=== PATIENT | male | born 1960 | race Caucasian/White ===

== ENCOUNTER 2020-08-31 11:14 | Inpatient (IN) | payer OTHER, SELFPAY ==
[2020-08-31] VITALS (16 sets, daily range): BP systolic 94–241; BP diastolic 60–90; PULSE 54–130; RESP 12–21; TEMP 36–36.7; O2SAT 92–98; BMI 29.6
--- NOTE | 2020-08-31 11:16 | XR_ITS ---
EXAMINATION: XR CHEST CLINICAL INFORMATION: Respiratory failure. Covid infection. COMPARISON: None TECHNIQUE: Frontal view of the chest was obtained. FINDINGS: There is an endotracheal tube with tip 7 cm above the nellie. There is a nasogastric tube that projects over the stomach. The tip is not seen however the sidehole projects over the proximal stomach. The cardiac and mediastinal contours are normal. There is bilateral multilobar airspace disease, greatest in the lateral right midlung and left lung base suggestive of pneumonia. There is no pleural effusion or pneumothorax. There are degenerative changes of the spine. XR/XR chest 1V IMPRESSION: Satisfactory position of support tubes. Bilateral airspace disease suggestive of pneumonia.
--- NOTE | 2020-08-31 11:18 | CT_ITS ---
EXAMINATION: CHEST CT WITHOUT CONTRAST CLINICAL INFORMATION: Covid infection. Hypoxia. COMPARISON: Previous chest x-ray from earlier the same day TECHNIQUE: Axial images through the chest without contrast. Sagittal and coronal reconstructions on the technologist workstation were. Patient dose 4 0 6 mg/cm. This CT examination was performed using dose optimization techniques as appropriate, variously including the following: *Automated exposure control *Adjustment of mA and/or kV according to patient size (this includes techniques or standardized protocols for targeted exams where dose is matched to indication/reason for exam; i.e. extremities or head) *Use of iterative reconstruction technique FINDINGS: There is an endotracheal tube with tip 3 cm above the nellie. There is a nasogastric tube that projects over the proximal stomach. The tip is not seen. The heart does not appear enlarged. There is no pericardial effusion. There are small mediastinal lymph nodes. There is evidence of severe emphysema. There is dense consolidation with air bronchograms in the right upper lobe suggestive of a pneumonia. There are increased surrounding more peripheral interstitial markings. There is a dependent atelectasis or small infiltrate seen in the posterior basal right lower lobe. There are adjacent increased more anterior and superior interstitial markings in the right lower lobe. There is dense atelectasis consolidation of the left lower lobe with air bronchograms. There are increased interstitial markings seen in the inferior left upper lobe. There are small bilateral pleural effusions. No chest wall mass or enlarged axillary lymph nodes are seen. There are degenerative changes of the spine. There are old bilateral rib fractures. CT/CT head/brain wo con IMPRESSION: Severe emphysema. Bilateral pneumonia, greatest in the right upper and left lower lobes. Small bilateral pleural effusions. Spectral position of endotracheal tube. Nasogastric tube projects over proximal stomach, tip not seen. EXAMINATION: Head CT without contrast CLINICAL INFORMATION: Covid infection. Seizure. Rule out stroke or bleed COMPARISON: None. TECHNIQUE: Axial images through the brain without contrast. Sagittal and coronal reconstructions on the technologist workstation were performed. Patient dose 7 7 9 mg/cm. This CT examination was performed using dose optimization techniques as appropriate, variously including the following: *Automated exposure control *Adjustment of mA and/or kV according to patient size (this includes techniques or standardized protocols for targeted exams where dose is matched to indication/reason for exam; i.e. extremities or head) *Use of iterative reconstruction technique FINDINGS: There is no evidence of an extra-axial collection. There is no evidence of intra-axial or extra-axial hemorrhage. The ventricles and extra-axial CSF spaces are prominent suggestive of generalized atrophy. Wilson-white matter differentiation is normal. No mass, mass effect or infarct is seen. No skull fracture is seen. There is bilateral frontal ethmoid and right maxillary sinus disease. IMPRESSION: No acute findings. Mild generalized atrophy and sinus disease.
--- NOTE | 2020-08-31 11:19 | ECG_ITS ---
Test Reason : UNRESPONSIVE Blood Pressure : / mmHG Vent. Rate : 123 BPM Atrial Rate : 123 BPM P-R Int : 180 ms QRS Dur : 080 ms QT Int : 292 ms P-R-T Axes : 074 033 084 degrees QTc Int : 418 ms Sinus tachycardia Nonspecific ST and T wave abnormality No previous ECGs available Referred By: Milo Dela Cruz Electronically Signed By:UMAIR RICHTER MD
--- NOTE | 2020-08-31 11:36 | ED_ITS ---
HPI - General Adult General Chief complaint: Seizure Stated complaint: dif breathing Time Seen by Provider: 08/31/20 11:15 Source: EMS Mode of arrival: EMS Limitations: altered mental status History of Present Illness HPI narrative: 60-year-old male was brought to the emergency department by EMS for altered mental status with possible seizure versus stroke. The patient is apparently COVID-19 positive x6 days, last well-known time was 9:50 a.m.. The patient's roommate believe that the patient may have had a seizure but I have no description of the event. The patient was altered. The patient was given Narcan in the field with no response. The paramedics brought the patient to the emergency department and he was altered, not responding to painful stimuli, diaphoretic, hypoxic with an O2 saturation of 70% on 100% non-rebreather. The patient is a dialysis patient. Given his hypoxia and altered mental status who is intubated on presentation. Related Data Allergies Allergy/AdvReac Type Severity Reaction Status Date / Time No Known Allergies Allergy Verified 08/31/20 11:16 Review of Systems Review of Systems: Yes unobtainable due to endotracheal tube and Unobtainable due to mental status PMFSH [facility] N[facility]: Past medical family history and social history unobtainable from this patient, unable to obtain old records on the patient Social History Social History Alcohol intake: unknown Smoking Status: Unknown if ever smoked Use of substances other than those prescribed or required for medical reasons: Unable to respond Advance Directives: Yes Advance Directives on File: Yes Advance Directives Date on File: 08/31/20 Physical Exam Vital Signs: Vital Signs: Last Vital Signs Pulse 107 H 08/31/20 12:27 Resp 20 08/31/20 12:00 BP 143/64 H 08/31/20 13:02 Const: General: other (Lethargic, diaphoretic, hypoxic, respiratory distress) HENMT: Head: Yes normal to inspection, Yes normocephalic and Yes atraumatic Ears: external ears normal General nose exam: Normal external nose present Face and sinus: Yes normal facial exam Mouth: Normal oral and palatal mucosa present Throat: Yes posterior oropharynx normal Eyes: Periorbital: periorbital findings normal Eyelids: Yes eyelids normal Conjunctivae: conjunctivae normal Sclerae: sclerae normal Corneas: corneas normal Pupils: Equal, round and reactive pupils present Direct Ophthalmoscopy: normal light reflex Neck: Neck: Yes no lymphadenopathy and Yes trachea midline Chest: Chest palpation & inspection: normal inspection of the chest Resp: Effort & Inspection: respiratory distress Auscultation: diminished lung sounds diffuse Cardio: Rate: regular rate Rhythm: regular rhythm Heart sounds: S1 normal heart sound present, S2 normal heart sound present and no murmurs GI: Inspection: Yes normal to inspection Palpation (GI): Soft to palpation and No hepatosplenomegaly present Rectal Exam - Male: Yes other (Dark black stool, Hemoccult negative) Back/Spine/Pelvis: Cervical Spine: normal cervical lordosis Thoracic/Lumbar Spine: thoracic and lumbar spine normal to inspection Skin: Lesions: no lesions Rashes: no rashes Wounds: no wounds Neuro: General: other (Altered mental status, diaphoretic, hypoxic, not responding to painful stim) Cranial nerves: Yes Equal, round and reactive pupils present Extrem: General: Yes normal to inspection Psych: Attitude: cooperative Course Course Course Narrative: 60-year-old male with end-stage renal disease who presents the emergency department for evaluation of altered mental status, possible seizure at home and COVID positive. The patient on presentation was hypoxic and lethargic. He is also severely hypertensive with a systolic blood 250/110. The patient was intubated and placed on a propofol and fentanyl drip. I did do a septic workup on the patient. Given the fact that he has COVID and concerned that he might have a viral pneumonia versus bacterial pneumonia he was treated with ceftriaxone and azithromycin IV. I did order a CT scan of the patient's head, chest, abdomen pelvis. Patient was presented to the wicker worker, Dr. Dela Cruz and the patient will be admitted for further treatment. Procedures Intubation Time out performed: No sedative: Etomidate Mg Given: 26 paralytic: Rocuronium Mg Given: 50 Laryngoscope: fiber optic video scope ET Tube Size: 7.5 ET Tube Uncuffed: Yes Tube Secured Location: lips Tube Placement Confirmation: visualized tube passing through cords Patient Tolerated Procedure: no complications Intubation Complications: none Medical Decision Making Lab Data Result diagrams: 08/31/20 11:48 08/31/20 11:48 Labs: Lab Results 08/31/20 08/31/20 08/31/20 Range/Units 11:36 11:48 11:48 WBC 24.6 H (4.8-10.8) X10*3/uL RBC 2.98 L (4.60-5.80) X10*6/uL Hgb 9.5 L (14.0-18.0) g/dl Hct 29.4 L (42-52) % MCV 98.7 H (80-98) fL MCH 31.9 (27.0-33.0) pg MCHC 32.3 (31.0-36.0) g/dl RDW 13.8 (11.0-16.0) % Plt Count 268 (160-400) X10*3/uL MPV 9.4 (9.4-12.4) fL Immature Gran % (Auto) 2.1 H (0.0-0.4) % Neut % (Auto) 91.4 H (45-73) % Lymph % (Auto) 3.1 L (20-40) % [place] % (Auto) 3.0 (2-11) % Eos % (Auto) 0.1 (0-4) % Baso % (Auto) 0.3 (0-2) % Lymph # (Auto) 0.8 L (1.2-4.9) X10*3/uL [place] # (Auto) 0.7 (0.1-1.2) X10*3/uL Eos # (Auto) 0.0 (0.0-0.4) X10*3/uL Baso # (Auto) 0.1 (0.0-0.2) X10*3/uL Abs Immat Gran (auto) 0.51 H (0.00-0.03) X10*3/uL Absolute Neuts (auto) 22.5 H (2.0-8.3) X10*3/uL Absolute Nucleated RBC 0.000 (0.0-0.012) X10*3/uL Nucleated RBC % (auto) 0.0 (0.0-0.2) /100WBC Smear Tech's Comments VERIFIED PT 12.4 (10.8-13.0) SEC INR 1.0 (0.9-1.1) APTT 31.9 (24.1-38.0) SEC D-Dimer 1345 NG/ML ABG pH (7.35-7.45) ABG pCO2 (32-45) mmhg ABG pO2 (83-108) mmhg ABG HCO3 (22-26) mmol/l ABG O2 Saturation % ABG Base Excess Oxygen Given Sodium (135-145) mmol/L Potassium (3.3-5.1) mmol/l Chloride (96-108) mmol/L Carbon Dioxide (22-29) mmol/L Anion Gap (12-20) BUN (9-16) mg/dL Creatinine (0.5-1.4) mg/dL Estim Creat Clear Calc Estimated GFR POC Glucose 274 H (60-115) mg/dL Random Glucose (60-115) mg/dL Lactic Acid (0.5-2.0) mmol/L Calcium (8.4-10.2) mg/dL Ferritin (20-250) ng/mL Total Bilirubin (0.0-1.0) mg/dL AST (5-37) U/L ALT (0-40) U/L Alkaline Phosphatase (39-117) U/L Troponin I High Sens (<3.5-35.0) ng/L C-Reactive Protein (< or = 0.50) mg/dL B-Natriuretic Peptide (<100) pg/mL Total Protein (6.5-8.0) g/dL Albumin (3.5-5.0) g/dL Procalcitonin ng/mL Urine Color Urine Appearance Urine pH (5.0-8.0) Ur Specific [place] (1.005-1.025) Urine Protein (NEG-TRACE) MG/DL Urine Glucose (UA) (NEG) MG/DL Urine Ketones (NEG) MG/DL Urine Blood (NEG) Urine Nitrite (NEG) Ur Leukocyte Esterase (NEG) Urine RBC (0) /HPF Urine WBC (0-4) /HPF Ur Squamous Epith Cells /LPF Urine Bacteria /LPF 08/31/20 08/31/20 08/31/20 Range/Units 11:48 11:48 11:48 WBC (4.8-10.8) X10*3/uL RBC (4.60-5.80) X10*6/uL Hgb (14.0-18.0) g/dl Hct (42-52) % MCV (80-98) fL MCH (27.0-33.0) pg MCHC (31.0-36.0) g/dl RDW (11.0-16.0) % Plt Count (160-400) X10*3/uL MPV (9.4-12.4) fL Immature Gran % (Auto) (0.0-0.4) % Neut % (Auto) (45-73) % Lymph % (Auto) (20-40) % [place] % (Auto) (2-11) % Eos % (Auto) (0-4) % Baso % (Auto) (0-2) % Lymph # (Auto) (1.2-4.9) X10*3/uL [place] # (Auto) (0.1-1.2) X10*3/uL Eos # (Auto) (0.0-0.4) X10*3/uL Baso # (Auto) (0.0-0.2) X10*3/uL Abs Immat Gran (auto) (0.00-0.03) X10*3/uL Absolute Neuts (auto) (2.0-8.3) X10*3/uL Absolute Nucleated RBC (0.0-0.012) X10*3/uL Nucleated RBC % (auto) (0.0-0.2) /100WBC Smear Tech's Comments PT (10.8-13.0) SEC INR (0.9-1.1) APTT (24.1-38.0) SEC D-Dimer NG/ML ABG pH (7.35-7.45) ABG pCO2 (32-45) mmhg ABG pO2 (83-108) mmhg ABG HCO3 (22-26) mmol/l ABG O2 Saturation % ABG Base Excess Oxygen Given Sodium 127 L (135-145) mmol/L Potassium 5.8 H (3.3-5.1) mmol/l Chloride 88 L (96-108) mmol/L Carbon Dioxide 25 (22-29) mmol/L Anion Gap 20 (12-20) BUN 62 H (9-16) mg/dL Creatinine 8.11 H* (0.5-1.4) mg/dL Estim Creat Clear Calc TNP Estimated GFR 7 POC Glucose (60-115) mg/dL Random Glucose 296 H (60-115) mg/dL Lactic Acid (0.5-2.0) mmol/L Calcium 8.6 (8.4-10.2) mg/dL Ferritin 3217 H (20-250) ng/mL Total Bilirubin 0.4 (0.0-1.0) mg/dL AST 25 (5-37) U/L ALT 20 (0-40) U/L Alkaline Phosphatase 92 (39-117) U/L Troponin I High Sens 50.0 H (<3.5-35.0) ng/L C-Reactive Protein 3.67 H (< or = 0.50) mg/dL B-Natriuretic Peptide 1286 H (<100) pg/mL Total Protein 6.4 L (6.5-8.0) g/dL Albumin 3.7 (3.5-5.0) g/dL Procalcitonin 0.28 ng/mL Urine Color Urine Appearance Urine pH (5.0-8.0) Ur Specific [place] (1.005-1.025) Urine Protein (NEG-TRACE) MG/DL Urine Glucose (UA) (NEG) MG/DL Urine Ketones (NEG) MG/DL Urine Blood (NEG) Urine Nitrite (NEG) Ur Leukocyte Esterase (NEG) Urine RBC (0) /HPF Urine WBC (0-4) /HPF Ur Squamous Epith Cells /LPF Urine Bacteria /LPF 08/31/20 08/31/20 08/31/20 Range/Units 11:49 12:05 13:15 WBC (4.8-10.8) X10*3/uL RBC (4.60-5.80) X10*6/uL Hgb (14.0-18.0) g/dl Hct (42-52) % MCV (80-98) fL MCH (27.0-33.0) pg MCHC (31.0-36.0) g/dl RDW (11.0-16.0) % Plt Count (160-400) X10*3/uL MPV (9.4-12.4) fL Immature Gran % (Auto) (0.0-0.4) % Neut % (Auto) (45-73) % Lymph % (Auto) (20-40) % [place] % (Auto) (2-11) % Eos % (Auto) (0-4) % Baso % (Auto) (0-2) % Lymph # (Auto) (1.2-4.9) X10*3/uL [place] # (Auto) (0.1-1.2) X10*3/uL Eos # (Auto) (0.0-0.4) X10*3/uL Baso # (Auto) (0.0-0.2) X10*3/uL Abs Immat Gran (auto) (0.00-0.03) X10*3/uL Absolute Neuts (auto) (2.0-8.3) X10*3/uL Absolute Nucleated RBC (0.0-0.012) X10*3/uL Nucleated RBC % (auto) (0.0-0.2) /100WBC Smear Tech's Comments PT (10.8-13.0) SEC INR (0.9-1.1) APTT (24.1-38.0) SEC D-Dimer NG/ML ABG pH 7.14 L* (7.35-7.45) ABG pCO2 75 H* (32-45) mmhg ABG pO2 88 (83-108) mmhg ABG HCO3 25 (22-26) mmol/l ABG O2 Saturation 94.4 % ABG Base Excess -4.7 Oxygen Given 100% Sodium (135-145) mmol/L Potassium (3.3-5.1) mmol/l Chloride (96-108) mmol/L Carbon Dioxide (22-29) mmol/L Anion Gap (12-20) BUN (9-16) mg/dL Creatinine (0.5-1.4) mg/dL Estim Creat Clear Calc Estimated GFR POC Glucose (60-115) mg/dL Random Glucose (60-115) mg/dL Lactic Acid 1.2 (0.5-2.0) mmol/L Calcium (8.4-10.2) mg/dL Ferritin (20-250) ng/mL Total Bilirubin (0.0-1.0) mg/dL AST (5-37) U/L ALT (0-40) U/L Alkaline Phosphatase (39-117) U/L Troponin I High Sens (<3.5-35.0) ng/L C-Reactive Protein (< or = 0.50) mg/dL B-Natriuretic Peptide (<100) pg/mL Total Protein (6.5-8.0) g/dL Albumin (3.5-5.0) g/dL Procalcitonin ng/mL Urine Color RED Urine Appearance CLOUDY Urine pH 7.5 (5.0-8.0) Ur Specific [place] 1.015 (1.005-1.025) Urine Protein 2+ H (NEG-TRACE) MG/DL Urine Glucose (UA) 100 H (NEG) MG/DL Urine Ketones NEG (NEG) MG/DL Urine Blood 3+ H (NEG) Urine Nitrite NEG (NEG) Ur Leukocyte Esterase TRACE H (NEG) Urine RBC 76-150 H (0) /HPF Urine WBC 1-4 (0-4) /HPF Ur Squamous Epith Cells TRACE /LPF Urine Bacteria NONE /LPF Critical Care Time Critical Care Time Critical Care Time: Yes Total Critical Care Time: 75 Attestation: Critical Care: The patient was critically ill with a high probability of imminent or life threatening deterioration. I spent greater than 30 minutes of discontinuous time evaluating the patient,delivering critical care at the bedside, discussing and evaluating pertinent data with consultants. Critical care time does not include time spent performing separately billable procedures or teaching. Total time spent performing critical care was 75 minutes. Discharge Plan Discharge Clinical Impression: Hypertensive crisis, COVID-19 Respiratory failure Qualifiers: Chronicity: acute Respiratory failure complication: hypoxia Qualified Code(s): J96.01 - Acute respiratory failure with hypoxia
[2020-08-31] MEDS: cefTRIAXone sodium 1 GM in 0.9 % Sodium Chloride 50 ML IV (11:38)
[2020-08-31] MEDS: Azithromycin 500 MG in 0.9 % Sodium Chloride 250 ML 125 MG IV (11:42)
[2020-08-31 11:57] LABS: Basophils Absolute Auto 0.1 X10*3/uL (0.0-0.2); Basophils Percent Auto 0.3 % (0-2); Eosinophils Percent Auto 0.1 % (0-4); Hematocrit 29.4 % (42-52); Hemoglobin 9.5 g/dl (14.0-18.0); Imm Gran Abs Auto 0.51 X10*3/uL (0.00-0.03); Imm Gran Pct Auto 2.1 % (0.0-0.4); Lymphocytes Absolute Auto 0.8 X10*3/uL (1.2-4.9); Lymphocytes Percent Auto 3.1 % (20-40); MANUAL DIFF FLAG SCAN; Mean Corpuscular HGB Conc 32.3 g/dl (31.0-36.0); Mean Corpuscular Hemoglobin 31.9 pg (27.0-33.0); Mean Corpuscular Volume 98.7 fL (80-98); Mean Platelet Volume 9.4 fL (9.4-12.4); Monocytes Absolute Auto 0.7 X10*3/uL (0.1-1.2); Neutrophils Absolute Auto 22.5 X10*3/uL (2.0-8.3); Neutrophils Percent Auto 91.4 % (45-73); Platelet Count 268 X10*3/uL (160-400); Red Blood Count 2.98 X10*6/uL (4.60-5.80); Red Cell Distribution Width 13.8 % (11.0-16.0); SCAN SMEAR FLAG 1; White Blood Count 24.6 X10*3/uL (4.8-10.8)
[2020-08-31 12:09] LABS: Prothrombin Time 12.4 SEC (10.8-13.0)
[2020-08-31] MEDS: fentaNYL citrate/PF 100 MCG/2 ML VIAL IVPUSH (12:09)
[2020-08-31] MEDS: fentaNYL citrate/NS 1,000 MCG/100 ML PLAST..BAG 2 MCG IVCONT (12:10)
--- NOTE | 2020-08-31 12:10 | CT_ITS ---
EXAMINATION: CT ABDOMEN AND PELVIS WITHOUT CONTRAST CLINICAL INFORMATION: Altered mental status. Elevated white blood cell count. Evaluate for infection. COMPARISON: Previous chest CT scans most recent March 2020 TECHNIQUE: Multidetector volumetric imaging was performed from the superior aspect of the liver through the pubic symphysis. Sagittal and coronal reformatted images were obtained on the technologist's workstation. This CT examination was performed using dose optimization techniques as appropriate, variously including the following: *Automated exposure control *Adjustment of mA and/or kV according to patient size (this includes techniques or standardized protocols for targeted exams where dose is matched to indication/reason for exam; i.e. extremities or head) *Use of iterative reconstruction technique DLP: 924 mGy-cm FINDINGS: LUNG BASES: Bilateral lower lobe atelectasis/consolidation and pleural effusions, left greater than right LIVER, GALLBLADDER, AND BILIARY TREE: The liver is unremarkable. There are gallstones in the gallbladder. The gallbladder does not appear distended. There is trace ascites adjacent to the liver and small amount of pericholecystic fluid. SPLEEN: Unremarkable. ADRENAL GLANDS: There is a 1 cm low-attenuation right adrenal nodule. This is similar to previous chest CT scans. Hounsfield units measure 3 without contrast probably represents a benign adenoma. KIDNEYS AND URETERS: There are innumerable bilateral renal cysts. Largest measures 2 cm in the upper pole of the right kidney. There are 2 small 2 mm left renal cortical calcifications. No hydronephrosis, ureteral dilatation or ureteral stone. BLADDER: There is a Canas catheter in the bladder. The bladder is empty. The bladder wall may be thickened. GASTROINTESTINAL TRACT: There is evidence of severe diverticulosis of the colon. There is wall thickening of the sigmoid colon and minimal stranding of the surrounding fat. Is difficult to exclude mild sigmoid diverticulitis. No evidence of obstruction, perforation or abscess is seen. The small and large bowel is otherwise unremarkable. The appendix is is not identified. There is a nasogastric tube in the stomach. ABDOMINAL WALL: There is a large umbilical hernia containing fat. LYMPH NODES: Normal. VASCULAR: There is evidence of atherosclerotic disease. There is no aneurysm. PELVIC VISCERA: Unremarkable. OSSEOUS STRUCTURES: There are degenerative changes of the spine. There is an intramedullary britton/lag screw seen in the right proximal femur. CT/CT abdomen pelvis wo con IMPRESSION: Gallstones. Small amount of ascites around the liver and pericholecystic fluid. There is clinical concern of cholecystitis, ultrasound or HIDA scan be recommended. Severe diverticular disease of the distal colon. It is difficult to exclude mild sigmoid diverticulitis. Innumerable bilateral renal cysts. Stable low-attenuation right adrenal lesion probably representing a benign adenoma. Large umbilical hernia containing fat.
[2020-08-31 12:12] LABS: Partial Thromboplastin Time 31.9 SEC (24.1-38.0)
[2020-08-31 12:15] LABS: Glucose, Whole Blood 274 mg/dL (60-115)
[2020-08-31 12:24] LABS: Lactic Acid 1.2 mmol/L (0.5-2.0)
--- NOTE | 2020-08-31 12:27 | P.PNCC_ITS ---
Critical Care Event Note Summary Code activated: No (Called about Mr. Lara who was intubated in the ED bec of hypoxemia and AM) Narrative: Called about Mr. Lara who was intubated in the ED bec of hypoxemia and AMS. The patient is a 60-year-old male with ESRF, on HD via fistula. Reportedly tested positive for COVID-19 six days ago. Last well-known time was 9:50 a.m. this morning. By report, the patient's roommate found the patient with AMS and thought he might have had a sz. EMS was called. The patient was given Narcan in the field with no response. The patient was BIBA to the ED. On arrival to the ED the patient's mental status was altered and he was not responding to painful stimuli. He was diaphoretic. Sat was 70% on non- rebreather face mask. Initial heart rate was 124, blood pressure was 241/90. The patient was intubated in short order. White count is 24. Other labs are pending. Chest x-ray (my reading) is most suggestive of acute pulmonary edema, but could easily be bilateral COVID pneumonia. IMPRESSION: Hypertensive crisis with acute pulmonary edema in an end-stage renal failure patient, versus bilateral COVID pneumonia. Await further labs. We?ll add COVID biomarkers. NTP or NTG drip and/or labetolol for his BP. We'll send him for head chest and abdomen CT. Following that, admit to ICU for further mx. Critical care time (including mult d/w Dr. De Guzman): 30+ min. Critical Care Time (minutes): 30
[2020-08-31 12:31] LABS: D Dimer 1345 NG/ML
[2020-08-31 12:36] LABS: Alanine Aminotransferase 20 U/L (0-40); Albumin Level 3.7 g/dL (3.5-5.0); Alkaline Phosphatase 92 U/L (39-117); Anion Gap 20 (12-20); Aspartate Amino Transferase 25 U/L (5-37); Bilirubin Total 0.4 mg/dL (0.0-1.0); Blood Urea Nitrogen 62 mg/dL (9-16); C Reactive Protein 3.67 mg/dL (< or = 0.50); Calcium 8.6 mg/dL (8.4-10.2); Carbon Dioxide 25 mmol/L (22-29); Chloride 88 mmol/L (96-108); Estimated Glomerular Filt Rate 7; Glucose Random 296 mg/dL (60-115); Potassium 5.8 mmol/l (3.3-5.1); SLIDE REVIEW VERIFIED; Sodium 127 mmol/L (135-145); Total Protein 6.4 g/dL (6.5-8.0)
[2020-08-31 12:39] LABS: Glucose Urine UA 100 MG/DL (NEG); Leukocyte Esterase Urine TRACE (NEG); Nitrite Urine NEG (NEG); PH 7.5 (5.0-8.0); Specific Gravity - Urine 1.015 (1.005-1.025); Urine Blood 3+ (NEG); Urine Ketones NEG (NEG); Urine Protein 2+ MG/DL (NEG-TRACE)
[2020-08-31 12:42] LABS: Color Urine RED
[2020-08-31 12:43] LABS: Appearance Urine CLOUDY
[2020-08-31] MEDS: Midazolam HCl/PF 2 MG/2 ML VIAL IVPUSH (12:43)
[2020-08-31 12:50] LABS: B Type Natriuretic Peptide 1286 pg/mL (<100)
[2020-08-31] MEDS: levETIRAcetam 250 MG in 0.9 % Sodium Chloride 100 ML 400 MG IV (12:50)
[2020-08-31 12:55] LABS: Procalcitonin 0.28 ng/mL
[2020-08-31 13:21] LABS: Squamous Epithelial Cell Urine TRACE /LPF
[2020-08-31 13:25] LABS: Pt Ventilation O2% 100%
[2020-08-31 13:26] LABS: Base Excess ABG -4.7; HCO3 ABG 25 mmol/l (22-26); Oxygen Saturation ABG 94.4 %; PO2 ABG 88 mmhg (83-108)
[2020-08-31 13:29] LABS: ABG PCO2 75 mmhg (32-45); pH ABG 7.14 (7.35-7.45)
[2020-08-31 13:31] LABS: Ferritin 3217 ng/mL (20-250)
--- NOTE | 2020-08-31 13:32 | PC.NURSE ---
Addendum entered by Michelle Garza RN 08/31/20 13:42: He is compliant with the vent at this time. ABG obtained and MD aware of critical results. Vent adjustments to be made by RT. Plan to transfer to CT. Original Note: Pt difficult to sedate. He is now on max dose of propofol and titrating Fentanyl as indicated. He is compliant
[2020-08-31 13:54] LABS: OBS Int Ctl Valid YES; OBS1 NEG (NEG)
[2020-08-31 15:42] LABS: Influenza A PCR NEGATIVE (Negative); Influenza B PCR NEGATIVE (Negative); Resp Syncy Virus RNA Qual PCR NEGATIVE (Negative); SARS COV2 PCR INHOUSE POSITIVE (Negative)
--- NOTE | 2020-08-31 15:47 | PC.NURSE ---
Adm to ICU Pt brought to ICU intubated and sedated with bilat wrist restraints in place. Pt settled and reported given at the bedside with on-coming nurse. Dr. Dela Cruz at bedside and multiple orders given to adjust medications and vent settings.
[2020-08-31 16:04] LABS: SARS COV2 IgG Positive (Negative)
--- NOTE | 2020-08-31 16:30 | PC.NURSE ---
Patient brought to the unit on a propofol and fentanyl drip. Order for fentanyl drip from ER discontinued but the bag is almost full. placed new order for fentanyl drip to be continued. New order is the same concentration. Drip titration documented under discontinued order. Spoke to Samantha in pharmacy agreed to continue to use full bag from ER. When bag is empty will scan new bag for the new order, MD aware patient is on Fentanyl as ordered.
--- NOTE | 2020-08-31 16:47 | PC.NURSE ---
Addendum entered by Radha Lynn RN 08/31/20 18:41: PACs noted on tele follwoing administration of atropine. Notified Dr. Dela Cruz. No new orders. Will continue to monitor. Addendum entered by Radha Lynn RN 08/31/20 18:29: HR trending in the 50s. Propofol and fentanyl titrated down. Notified . Administered ordered 4.mg atropine IVP. HRup to the 80s, SBP up to 130s, MD aware. Norepinephrine titrated off at 18:35. Hematuria noted in charles. Irrigated 60 cc of steril water, 60 cc returned with two large blood clots. 100 cc of bloody urine in charles after irriagation. Repeated irrigation of 60 cc sterile water at 18:30. Unable to get any return of urine. Notified , will report to oncoming RN to monitor urine output. Original Note: SBP trending in the low 90s as low and patient to begin dialysis. Per MD, patient to be started on Norepinephrine drip at 0.05 mcg/kg/min per protocol going through 20G in the left AC per .
[2020-08-31 17:22] LABS: Glucose, Whole Blood 122 mg/dL (60-115)
[2020-08-31] MEDS: Chlorhexidine Gluc Oral Rinse 15 ML MOUTHWASH BUCCAL (17:39)
--- NOTE | 2020-08-31 17:40 | PM.CCHP ---
History of Present Illness Date of Service: 08/31/20 Mr. Lara was admitted to the ICU this afternoon after being intubated in the ED bec of hypoxemia and AMS. The patient is a 60-year-old male with ESRF, on HD via fistula. Dr. Leger reported to me that his ESRF is 2? IgA nephropathy on bx, and that he?s been on HD for about 1 year. He?s on -Sun schedule and was scheduled for HD at 3:30pm today. He also has a history of heavy cigarette abuse, COPD, bronchitis w chronic cough, Crohn?s dz, and schizoaffective disorder. Dr. Leger also reported to me that the patient tested positive for COVID-19 on August 18 (14 days ago). The patient has lived with a roommate named Abdoulaye (telephone numbers [phone], or [phone]) for the last 8 years. Abdoulaye is also the patient?s HCP. I have no information about whether the patient has any next of kin. Abdoulaye tells me that the patient was hospitalized with pneumonia this past October for 3 days; he does not know whether that was COVID or not. The patient wears oxygen 24 hours a day: 2 L at rest, and 4 L with exertion. The patient rarely leaves the house. The patient has a nurse who comes to see him every day to give him his medication. The patient has been in his usual state of health, not requiring more oxygen than usual, not more dyspnea than usual, and if anything, coughing less than he usually does. No recent fever. According to Abdoulaye, the patient has been largely asymptomatic from a COVID standpoint since he tested positive. He never required hospitalization nor even an increase in his usual FiO2. The patient was seen at the house by his usual nurse this morning. Nothing was amiss. Abdoulaye saw the patient this morning and he looked fine. Then at about 10 30, the patient was noted to be sitting and unresponsive to questioning. His breathing did not look right. Abdoulaye called EMS. Accord to EMS records, they arrived to the house at 10:20am. Initial VS at the house HR 58, BP 79/43, Sat 56% (?FiO2), RR10. Unresponsive, opened eyes to painful stim. The patient was given 2mg Narcan. Next BP was 222/99, Sat 98% on NRBFM. EKG at the scene unremarkable except for poss Qw in V1. soldering machine feeder worked on him for about half an hour at the house and then left to go to the hospital, arrived in the ED at 11 00. In ED the patient's mental status was altered, resp agonal, and he was not responding to painful stimuli. He was diaphoretic. Sat was 71% on non-rebreather face mask. Initial heart rate was 124, blood pressure was 241/90. The patient was immediately intubated. Labs in ED notable for white count 24, Sodium 127, BUN/creat 62/8.1, potassium is 5.8, bicarb is 25, glucose 296, normal LFTs, albumin 3.7, high sensitivity troponin 50, BNP 1286, lactic acid 1.2, DDimer 1345, ferritin 3217, CRP 3.6, procalcitonin 0.28 Chest x-ray (my reading) is most suggestive of acute pulmonary edema, but could easily be bilateral COVID pneumonia. Chest CT shows severe bullous emphysema with marked increase in interstitial markings with small bilat pleural eff, bilat lower lung zone interstitial infiltrates, and small areas of consolidation bilat in the posterior lung zones, with small area of air bronchograms in LLL. Read by radiologist as pneumonia, but other than the area of air bronchograms, it looks more like pulmon edema to me. Abd CT showed gallstones w small amount of ascites around the liver and pericholecystic fluid, w severe diverticular disease of the distal colon. Also innumerable bilateral renal cysts. Large umbilical hernia containing fat. The patient was admitted to ICU, where very rapidly he was tapered down to 40%, then 30% FiO2. We turned the propofol off and the patient woke up and sat up. He was appropriately responsive. We reset dated him so that we could complete dialysis. Dialysis was started and the patient is hemodynamically stable. I expect to extubate him quickly after dialysis is completed. COVID swab done after arrival to the ICU was positive. SARS-CoV-2 IgG is also positive. IMPRESSION: 1. AMS of unclear etiology. No evidence of stroke on head CT. A detailed neuro exam will follow later. DDx otherwise includes seizure or toxic/metabolic encephalopathy. Response to narcan as outline in the history above suggests a possible opiate OD. We?ll add tox screen to his u/a from the ED 2. Severe HTN on arrival. No surprise in a HD patient. Hypertensive crisis with acute pulmon edema could be one reason for his pulmon infiltrates. 3. Bilateral pulmonary infiltrates. Given the history above, it is a virtual certainty that the infiltrate seen on his chest x-ray and CT today are not secondary to COVID. If so, then the other dx?s in the differential would be acute pulmonary edema or pneumonia. Again, given the history above, the pulmonary infiltrates are unlikely infectious, given the suddeness of onset. Therefore, if the infiltrates are pneumonia, it would be aspiration pneumonia, which would be c/w the distribution of the lower lobe infiltrates. And the rapid resolution of hypoxemia would be consistent with either pulmonary edema or aspiration pneumonitis. Echo tomorrow AM. 4. Acute respiratory failure. 2 to above. 5. ESRF with acute azotemia and hyperkalemia. Being dialyzed now. 6. COVID. Tested positive 14 days ago. It?s a virtual certainty that he?s no longer infectious. Still should be isolated in the hospital though. Hypertensive crisis with acute pulmonary edema in an end-stage renal failure patient is my leading dx at this point. Given the marked leukocytosis however, I?ll continue the ceftriaxone and Zithromax pending clinical resolution. Additional critical care time (including telephone d/w Abdoulaye and with Dr. Leger and review of EMS records): 60+ min. Review of Systems Neurologic: Reports Abnormal speech present [facility] Social History Social History (System 09/01/20 @ 08:29 by Gali Gonzalez) Smoking Status: Unknown if ever smoked Use of substances other than those prescribed or required for medical reasons: Unable to respond Currently Displaying Signs/Symptoms of Drug Intoxication Withdrawal: No Advance Directives: Yes Advance Directives on File: Yes Do you have thoughts of harming others: None Do you have a plan to hurt others: No Plan service: No Current occupational status: disabled Meds Allergies Allergy/AdvReac Type Severity Reaction Status Date / Time No Known Allergies Allergy Verified 08/31/20 11:16 Home Medications Medication Instructions Recorded Confirmed Type B complex with C 20-folic acid 1 cap PO DAILY 08/31/20 08/31/20 History [[place] Caps] albuterol sulfate [ProAir HFA] 2 puff INHALATION Q4-6H PRN 08/31/20 08/31/20 History amlodipine 5 mg PO DAILY 08/31/20 08/31/20 History aspirin 81 mg PO DAILY 08/31/20 08/31/20 History cholecalciferol (vitamin D3) 125 mcg PO DAILY 08/31/20 08/31/20 History [Vitamin D3] famotidine 20 mg PO BEDTIME 08/31/20 08/31/20 History ferric citrate [Auryxia] 210 mg PO TID 08/31/20 08/31/20 History fluticasone propionate [Flovent 1 puff INHALATION BID 08/31/20 08/31/20 History HFA] furosemide 80 mg PO DAILY 08/31/20 08/31/20 History loperamide 2 mg PO TID PRN 08/31/20 08/31/20 History metoprolol tartrate 25 mg PO BID 08/31/20 08/31/20 History nicotine 1 patch TRANSDERMAL Q24H 08/31/20 08/31/20 History omega-3 fatty acids [[place] 3] 1,000 mg PO DAILY 08/31/20 08/31/20 History paliperidone 3 mg PO QAM 08/31/20 08/31/20 History perphenazine 4 mg PO DAILY 08/31/20 08/31/20 History Physical Exam Vital Signs: Vital Signs: Last Vital Signs Temp 96.8 F 08/31/20 16:00 Pulse 54 08/31/20 17:00 Resp 16 08/31/20 17:00 BP 122/69 08/31/20 17:00 Pulse Ox 95 08/31/20 17:00 Body Mass Index 29.6 Neuro: Speech: Abnormal speech present Results Labs CBC and Chem 7: 09/01/20 05:35 09/01/20 05:35 Labs: Laboratory Results - last 24 hr 08/31/20 08/31/20 08/31/20 11:36 11:48 11:48 MCV 98.7 H MCH 31.9 MCHC 32.3 RDW 13.8 Plt Count 268 MPV 9.4 Immature Gran % (Auto) 2.1 H Neut % (Auto) 91.4 H Lymph % (Auto) 3.1 L [place] % (Auto) 3.0 Eos % (Auto) 0.1 Baso % (Auto) 0.3 Lymph # (Auto) 0.8 L [place] # (Auto) 0.7 Eos # (Auto) 0.0 Baso # (Auto) 0.1 Abs Immat Gran (auto) 0.51 H Absolute Neuts (auto) 22.5 H Absolute Nucleated RBC 0.000 Nucleated RBC % (auto) 0.0 Smear Tech's Comments VERIFIED PT 12.4 INR 1.0 APTT 31.9 D-Dimer 1345 ABG pH ABG pCO2 ABG pO2 ABG HCO3 ABG O2 Saturation ABG Base Excess Oxygen Given Anion Gap Estim Creat Clear Calc Estimated GFR POC Glucose 274 H Random Glucose Lactic Acid Calcium Ferritin Total Bilirubin AST ALT Alkaline Phosphatase Troponin I High Sens C-Reactive Protein B-Natriuretic Peptide Total Protein Albumin Procalcitonin Urine Color Urine Appearance Urine pH Ur Specific [place] Urine Protein Urine Glucose (UA) Urine Ketones Urine Blood Urine Nitrite Ur Leukocyte Esterase Urine RBC Urine WBC Ur Squamous Epith Cells Urine Bacteria Stool Occult Blood Coronavirus (PCR) Influenza Type A (PCR) Influenza Type B (PCR) RSV RNA Qual (PCR) SARS-CoV-2 IgG Ab 08/31/20 08/31/20 08/31/20 11:48 11:48 11:48 MCV MCH MCHC RDW Plt Count MPV Immature Gran % (Auto) Neut % (Auto) Lymph % (Auto) [place] % (Auto) Eos % (Auto) Baso % (Auto) Lymph # (Auto) [place] # (Auto) Eos # (Auto) Baso # (Auto) Abs Immat Gran (auto) Absolute Neuts (auto) Absolute Nucleated RBC Nucleated RBC % (auto) Smear Tech's Comments PT INR APTT D-Dimer ABG pH ABG pCO2 ABG pO2 ABG HCO3 ABG O2 Saturation ABG Base Excess Oxygen Given Anion Gap 20 Estim Creat Clear Calc TNP Estimated GFR 7 POC Glucose Random Glucose 296 H Lactic Acid Calcium 8.6 Ferritin 3217 H Total Bilirubin 0.4 AST 25 ALT 20 Alkaline Phosphatase 92 Troponin I High Sens 50.0 H C-Reactive Protein 3.67 H B-Natriuretic Peptide 1286 H Total Protein 6.4 L Albumin 3.7 Procalcitonin 0.28 Urine Color Urine Appearance Urine pH Ur Specific [place] Urine Protein Urine Glucose (UA) Urine Ketones Urine Blood Urine Nitrite Ur Leukocyte Esterase Urine RBC Urine WBC Ur Squamous Epith Cells Urine Bacteria Stool Occult Blood Coronavirus (PCR) Influenza Type A (PCR) Influenza Type B (PCR) RSV RNA Qual (PCR) SARS-CoV-2 IgG Ab 08/31/20 08/31/20 08/31/20 11:48 11:49 12:05 MCV MCH MCHC RDW Plt Count MPV Immature Gran % (Auto) Neut % (Auto) Lymph % (Auto) [place] % (Auto) Eos % (Auto) Baso % (Auto) Lymph # (Auto) [place] # (Auto) Eos # (Auto) Baso # (Auto) Abs Immat Gran (auto) Absolute Neuts (auto) Absolute Nucleated RBC Nucleated RBC % (auto) Smear Tech's Comments PT INR APTT D-Dimer ABG pH ABG pCO2 ABG pO2 ABG HCO3 ABG O2 Saturation ABG Base Excess Oxygen Given Anion Gap Estim Creat Clear Calc Estimated GFR POC Glucose Random Glucose Lactic Acid 1.2 Calcium Ferritin Total Bilirubin AST ALT Alkaline Phosphatase Troponin I High Sens C-Reactive Protein B-Natriuretic Peptide Total Protein Albumin Procalcitonin Urine Color RED Urine Appearance CLOUDY Urine pH 7.5 Ur Specific [place] 1.015 Urine Protein 2+ H Urine Glucose (UA) 100 H Urine Ketones NEG Urine Blood 3+ H Urine Nitrite NEG Ur Leukocyte Esterase TRACE H Urine RBC 76-150 H Urine WBC 1-4 Ur Squamous Epith Cells TRACE Urine Bacteria NONE Stool Occult Blood Coronavirus (PCR) Influenza Type A (PCR) Influenza Type B (PCR) RSV RNA Qual (PCR) SARS-CoV-2 IgG Ab Positive 08/31/20 08/31/20 08/31/20 13:15 13:40 14:45 MCV MCH MCHC RDW Plt Count MPV Immature Gran % (Auto) Neut % (Auto) Lymph % (Auto) [place] % (Auto) Eos % (Auto) Baso % (Auto) Lymph # (Auto) [place] # (Auto) Eos # (Auto) Baso # (Auto) Abs Immat Gran (auto) Absolute Neuts (auto) Absolute Nucleated RBC Nucleated RBC % (auto) Smear Tech's Comments PT INR APTT D-Dimer ABG pH 7.14 L* ABG pCO2 75 H* ABG pO2 88 ABG HCO3 25 ABG O2 Saturation 94.4 ABG Base Excess -4.7 Oxygen Given 100% Anion Gap Estim Creat Clear Calc Estimated GFR POC Glucose Random Glucose Lactic Acid Calcium Ferritin Total Bilirubin AST ALT Alkaline Phosphatase Troponin I High Sens C-Reactive Protein B-Natriuretic Peptide Total Protein Albumin Procalcitonin Urine Color Urine Appearance Urine pH Ur Specific [place] Urine Protein Urine Glucose (UA) Urine Ketones Urine Blood Urine Nitrite Ur Leukocyte Esterase Urine RBC Urine WBC Ur Squamous Epith Cells Urine Bacteria Stool Occult Blood NEG Coronavirus (PCR) POSITIVE A Influenza Type A (PCR) NEGATIVE Influenza Type B (PCR) NEGATIVE RSV RNA Qual (PCR) NEGATIVE SARS-CoV-2 IgG Ab 08/31/20 17:15 MCV MCH MCHC RDW Plt Count MPV Immature Gran % (Auto) Neut % (Auto) Lymph % (Auto) [place] % (Auto) Eos % (Auto) Baso % (Auto) Lymph # (Auto) [place] # (Auto) Eos # (Auto) Baso # (Auto) Abs Immat Gran (auto) Absolute Neuts (auto) Absolute Nucleated RBC Nucleated RBC % (auto) Smear Tech's Comments PT INR APTT D-Dimer ABG pH ABG pCO2 ABG pO2 ABG HCO3 ABG O2 Saturation ABG Base Excess Oxygen Given Anion Gap Estim Creat Clear Calc Estimated GFR POC Glucose 122 H Random Glucose Lactic Acid Calcium Ferritin Total Bilirubin AST ALT Alkaline Phosphatase Troponin I High Sens C-Reactive Protein B-Natriuretic Peptide Total Protein Albumin Procalcitonin Urine Color Urine Appearance Urine pH Ur Specific [place] Urine Protein Urine Glucose (UA) Urine Ketones Urine Blood Urine Nitrite Ur Leukocyte Esterase Urine RBC Urine WBC Ur Squamous Epith Cells Urine Bacteria Stool Occult Blood Coronavirus (PCR) Influenza Type A (PCR) Influenza Type B (PCR) RSV RNA Qual (PCR) SARS-CoV-2 IgG Ab Imaging Radiologist's Impressions: Impressions Chest X-Ray 08/31/20 11:16 IMPRESSION: Satisfactory position of support tubes. Bilateral airspace disease suggestive of pneumonia. Head CT 08/31/20 11:18 IMPRESSION: Severe emphysema. Bilateral pneumonia, greatest in the right upper and left lower lobes. Small bilateral pleural effusions. Spectral position of endotracheal tube. Nasogastric tube projects over proximal stomach, tip not seen. EXAMINATION: Head CT without contrast CLINICAL INFORMATION: Covid infection. Seizure. Rule out stroke or bleed COMPARISON: None. TECHNIQUE: Axial images through the brain without contrast. Sagittal and coronal reconstructions on the technologist workstation were performed. Patient dose 7 7 9 mg/cm. This CT examination was performed using dose optimization techniques as appropriate, variously including the following: *Automated exposure control *Adjustment of mA and/or kV according to patient size (this includes techniques or standardized protocols for targeted exams where dose is matched to indication/reason for exam; i.e. extremities or head) *Use of iterative reconstruction technique FINDINGS: There is no evidence of an extra-axial collection. There is no evidence of intra-axial or extra-axial hemorrhage. The ventricles and extra-axial CSF spaces are prominent suggestive of generalized atrophy. Wilson-white matter differentiation is normal. No mass, mass effect or infarct is seen. No skull fracture is seen. There is bilateral frontal ethmoid and right maxillary sinus disease. IMPRESSION: No acute findings. Mild generalized atrophy and sinus disease. Abdomen/Pelvis CT 08/31/20 12:10 IMPRESSION: Gallstones. Small amount of ascites around the liver and pericholecystic fluid. There is clinical concern of cholecystitis, ultrasound or HIDA scan be recommended. Severe diverticular disease of the distal colon. It is difficult to exclude mild sigmoid diverticulitis. Innumerable bilateral renal cysts. Stable low-attenuation right adrenal lesion probably representing a benign adenoma. Large umbilical hernia containing fat. Chest CT 08/31/20 12:10 IMPRESSION: Severe emphysema. Bilateral pneumonia, greatest in the right upper and left lower lobes. Small bilateral pleural effusions. Spectral position of endotracheal tube. Nasogastric tube projects over proximal stomach, tip not seen. EXAMINATION: Head CT without contrast CLINICAL INFORMATION: Covid infection. Seizure. Rule out stroke or bleed COMPARISON: None. TECHNIQUE: Axial images through the brain without contrast. Sagittal and coronal reconstructions on the technologist workstation were performed. Patient dose 7 7 9 mg/cm. This CT examination was performed using dose optimization techniques as appropriate, variously including the following: *Automated exposure control *Adjustment of mA and/or kV according to patient size (this includes techniques or standardized protocols for targeted exams where dose is matched to indication/reason for exam; i.e. extremities or head) *Use of iterative reconstruction technique FINDINGS: There is no evidence of an extra-axial collection. There is no evidence of intra-axial or extra-axial hemorrhage. The ventricles and extra-axial CSF spaces are prominent suggestive of generalized atrophy. Wilson-white matter differentiation is normal. No mass, mass effect or infarct is seen. No skull fracture is seen. There is bilateral frontal ethmoid and right maxillary sinus disease. IMPRESSION: No acute findings. Mild generalized atrophy and sinus disease. Critical Care Time Critical Care Time (minutes): 60
[2020-08-31] MEDS: Atropine Sulfate 1 MG/ML VIAL 0.4 MG IVPUSH (17:41)
[2020-08-31] MEDS: propofoL 1,000 MG/100 ML VIAL 10.62 MG IVCONT (17:42)
[2020-09-01] VITALS (21 sets, daily range): BP systolic 117–206; BP diastolic 60–105; PULSE 56–100; RESP 12–23; TEMP 36.7–36.8; O2SAT 90–99
[2020-09-01 01:31] LABS: Glucose, Whole Blood 64 mg/dL (60-115)
[2020-09-01 05:57] LABS: MANUAL DIFF FLAG NO
[2020-09-01 06:05] LABS: Basophils Percent Auto 0.4 % (0-2); Eosinophils Percent Auto 0.5 % (0-4); Hematocrit 26.1 % (42-52); Hemoglobin 8.1 g/dl (14.0-18.0); Imm Gran Abs Auto 0.07 X10*3/uL (0.00-0.03); Imm Gran Pct Auto 0.8 % (0.0-0.4); Lymphocytes Absolute Auto 0.8 X10*3/uL (1.2-4.9); Mean Corpuscular Hemoglobin 30.3 pg (27.0-33.0); Mean Corpuscular Volume 97.8 fL (80-98); Mean Platelet Volume 9.9 fL (9.4-12.4); Monocytes Absolute Auto 0.7 X10*3/uL (0.1-1.2); Monocytes Percent Auto 8.6 % (2-11); Neutrophils Absolute Auto 6.8 X10*3/uL (2.0-8.3); Neutrophils Percent Auto 80.7 % (45-73); Platelet Count 224 X10*3/uL (160-400); Red Blood Count 2.67 X10*6/uL (4.60-5.80); White Blood Count 8.4 X10*3/uL (4.8-10.8)
[2020-09-01 06:20] LABS: Base Excess VBG 7.7 mmol/L; HCO3 VBG 32 mmol/L; Oxygen Saturation VBG 86.5 %; PCO2 VBG 44 mmhg; PO2 VBG 50 mmhg; pH VBG 7.48 (7.32-7.43)
[2020-09-01 06:39] LABS: Anion Gap 15 (12-20); Blood Urea Nitrogen 30 mg/dL (9-16); C Reactive Protein 5.53 mg/dL (< or = 0.50); Calcium 8.4 mg/dL (8.4-10.2); Carbon Dioxide 30 mmol/L (22-29); Chloride 95 mmol/L (96-108); Creatinine Clr Calc Pharmacy 16.5; Estimated Glomerular Filt Rate 12; Glucose Random 105 mg/dL (60-115); Potassium 4.9 mmol/l (3.3-5.1); Sodium 135 mmol/L (135-145)
[2020-09-01 06:40] LABS: B Type Natriuretic Peptide 1348 pg/mL (<100); Troponin-I High Sensitivity 299.7 ng/L (<3.5-35.0)
[2020-09-01 06:54] LABS: Glucose, Whole Blood 87 mg/dL (60-115)
[2020-09-01 06:57] LABS: D Dimer 1271 NG/ML
--- NOTE | 2020-09-01 07:03 | XR_ITS ---
EXAMINATION: XR CHEST CLINICAL INFORMATION: Followup CHF. COMPARISON: Chest radiograph and CT chest 08/31/2020 TECHNIQUE: Frontal view of the chest was obtained. FINDINGS: Endotracheal tube and enteric tube have been removed. The cardiomediastinal silhouette is unchanged. The central pulmonary vasculature is not significantly increased. The bilateral multifocal patchy airspace opacities are not substantially changed. The small bilateral pleural effusions noted on CT are not well seen. No evidence of pneumothorax. Redemonstrated background of emphysema with large bullae in the right apex. XR/XR chest 1V IMPRESSION: The patient has been extubated. The bilateral multifocal patchy airspace opacities are not substantially changed. No evidence of new airspace opacification or increasing pleural effusions.
[2020-09-01 07:17] LABS: Procalcitonin 8.61 ng/mL
[2020-09-01 07:22] LABS: Ferritin 2500 ng/mL (20-250)
--- NOTE | 2020-09-01 07:36 | CA_ITS ---
Transthoracic Echocardiogram Amended Patient (Last, First, Middle): Narinder Lara, Gender: Male Date of : 1960 Age: 60 Procedure Date: 09/01/2020 Procedure Type: Transthoracic Echocardiogram Location: ICU Height: 172.72 cm Weight: 88.45 kg BSA: 2.02 m2 Heart Rate: bpm BP: 171 / 77 mmHg Feltmaker And Weigher: CHIQUITA Referring MD: Milo Dela Cruz Sewage Plant Supervisor: Trev Mccoy MD Symptoms: CHF with acute resp failure; r/o CO Study Quality: Fair ECG Rhythm: Sinus Conclusions: - 1. Normal LV systolic function with mild LVH with pseudonormal filling pattern 2. Normal cardiac valvular Doppler 3. Normal RV systolic pressure 4. No gross pericardial effusion Findings Procedure Information Contrast agent, definity, is being given per protocol without apparent complications. Left Ventricle Normal left ventricular size and systolic function. There is mildly increased left ventricular wall thickness. The visually estimated ejection fraction is between 60-65%. Spectral Doppler is indicative of a pseudonormal filling pattern. E/E prime ratio is between 8 and 15 consistent with indeterminate filling pressures. Right Ventricle Normal right ventricular cavity size and systolic function. Atria The left atrium is likely dilated. Interatrial shunt cannot be excluded. The right atrium was not well visualized. Aortic Valve The aortic valve was not well visualized. There is no aortic valve stenosis. There is no aortic valve regurgitation. Mitral Valve Likely normal mitral valve structure and function. There is trace mitral valve regurgitation. There is no mitral valve stenosis. Pulmonic Valve The pulmonic valve was not well visualized. Tricuspid Valve Likely normal tricuspid valve structure and function. There is mild tricuspid valve regurgitation. The right ventricular systolic pressure is normal. The right ventricular systolic pressure is 27 mmHg. There is no evidence of pulmonary hypertension. Great Vessels All visible segments of the aorta are normal in size. Venous The inferior vena cava is normal in size and collapses greater than 50% with inspiration. Pericardium/Pleural There is no evidence of pericardial effusion. Prior Study Comparison No prior study available for comparison. Measurements 2D Linear Measurements IVSd: 1.22 0.6-0.9/0.6-1.0 cm LVIDd: 4.12 3.9-5.3/4.2-5.9 cm LVIDd Index: 2.04 2.4-3.2/2.2-3.1 cm/m2 LVIDs: 2.87 2.0-3.6 cm LVPWd: 1.25 0.7-1.1 cm Ao Root: 3.20 2.1-3.5 cm LA Diam: 3.60 2.7-3.8/3.0-4.0 cm LAIDs Index: 1.78 1.5-2.3 cm/m2 LV Mass: 224.91 67-162/88-224 g LV Mass Index: 111.34 43-95/49-115 g/m2 LVOT Diam: 2.00 3.0+(-)1.3 cm 2D Volumes LA Vol: 36.30 Mitral Valve MV Pk E: 1.14 MV PK A: 0.94 MV Decel Time: 194.00 E/A: 1.20 E'Lateral: 13.70 E'Medial: 10.90 E/E' Med: 10.50 E/E' Lat: 8.30 PHT: 57.00 MVA PHT: 3.86 Decel [place]: 5.86 Aortic Valve AoV Pk Db: 1.63 AoV Mn Db: 1.10 AoV VTI: 0.29 AoV Pk Grad: 11.00 Aov Mn Grad: 6.00 VANESSA Cont.VTI: 2.85 LVOT LVOT Pk Db: 1.10 LVOT Mn Db: 0.67 LVOT VTI: 0.26 LVOT Pk Grad: 5.00 LVOT Mn Grad: 2.00 LVOT Diam: 2.00 LVOT Area: 3.14 Diastolic Function MV Pk E: 1.14 MV Pk A: 0.94 E/A: 1.20 E'Medial: 10.90 E/E' Med: 10.50 E' Laterial: 13.70 E/E' Lat: 8.30 Tricuspid Valve TR Pk Db: 2.47 TR Pk Grad: 24.00 RA Press: 3.00 RVSP: 27.00 Great Vessels Aorta Ao Root-2D: 3.20 2.0-3.7 cm Ao Asc: 3.10 2.1-3.4 cm Pulmonary Valve PV Pk Db: 1.29 Peak PV Grad: 7.00 Updated in Other Vendor System with Status of Final Trev Mccoy MD electronically signed on 09/01/2020 2:28:12 PM with status of Final
--- NOTE | 2020-09-01 07:37 | ECG_ITS ---
Test Reason : r/o IA Blood Pressure : / mmHG Vent. Rate : 083 BPM Atrial Rate : 083 BPM P-R Int : 166 ms QRS Dur : 074 ms QT Int : 386 ms P-R-T Axes : 066 016 065 degrees QTc Int : 453 ms Normal sinus rhythm Normal ECG No previous ECGs available Referred By: Milo Dela Cruz Electronically Signed By:UMAIR RICHTER MD
--- NOTE | 2020-09-01 07:45 | MHC.CDI.CONC ---
CDI Concurrent Query Service Date: 09/01/20 Documentation Clarification: NO SUSPICION OF SEPSIS OF ANY KIND. LEADING DX IS HYPERTENSIVE CRISIS WITH ACUTE PULMONARY EDEMA. Please clarify if you are treating a probable/suspected/likely or confirmed: Viral Sepsis due to Covid-19 Pneumonia w acute on chronic hypoxic respiratory failure POA Covid-19 pneumonia with acute on chronic hypoxic respiratory failure POA Please specify if known or other etiology Provider Response: CKD Stage 5 (HYPERTENSIVE CRISIS WITH ACUTE PULMONARY EDEMA) Other Diagnosis: HYPERTENSIVE CRISIS WITH ACUTE PULMONARY EDEMA PLEASE DO NOT DELETE/MODIFY EXISTING CONTENT Additional information is needed in order to code to the highest accuracy and appropriate Severity of Illness (SOI). Please clarify the information noted below in your progress notes and discharge summary. Risk Factors/Clinical Indicators/Treatments WBC 24.6 RR 21 HR 124 BP 241/90 Covid infection 14 days now. Ceftriaxone, Azithromycin, hypoxic O2 sat 70%, vent 100 oxygen flow rate, placed on 6 liters nc RR 20. CT: 08/31 - bilateral pneumonia greater in right upper and left lower lobe. Ed: Covid-19, acute hypoxic respiratory failure, ICU admit. Patient wears oxygen 24hrs a day 2 L at rest 4L w exertion, heavy smoker. CDS: Amparo Flores CCS, CDIS Contact Number: [phone] Please Review the information above and exercise your independent professional judgment in responding to the query. If you concur, pleas document in the PROGRESS NOTES and DISCHARGE SUMMARY. If you do not agree with the query, please document in the query above. THIS QUERY IS PART OF THE PERMANENT MEDICAL RECORD
--- NOTE | 2020-09-01 07:55 | PC.NURSE ---
Assumed care @ 1900 - Dialysis finished at approx 1930. Plan to extubate after dialysis - wean off propofol, keep fentanyl going at 10mcg/hour. Patient shaking / nodding head, following simple directions. Suctioned patient for moderate amt cream prior to extubation. RT at bedside, extubated @ 2009. Patient tolerated extubation, Lungs clear, no stridor noted post extubation. Fentanyl stopped. Patient extubated to 6 liters nasal cannula, weaned to 4 liters through night. Afebrile. No distress. Passed swallow eval - ewelina PA made aware and ordered Renal diet. POC 64 at midnight, gave patient apple juice, and sandwich. POC in morning >80. Vitals stable. Patient resting, arousable, oriented x 4, flat affect, but very pleasant and cooperative w/ care. After Extubation, Abdoulaye, proxy, updated about patient condition, and reported he had patient's wallet. Patient made aware his wallet is with Abdoulaye.
--- NOTE | 2020-09-01 08:53 | MHC.CM.PN ---
pt lives c his life in [employer]/HCP - shyanne , he also has a second [employer] that comes in to help . pt is HD 3x/wk and gets transportation via [facility] as they follow him in the community. pt also has vna - BID nsg through [employer], nurse ph: [phone]. lastly , pt is on chronic o2 via [employer]. pt's [employer] will provide transportation when dc'd. dc plan is to return home c all of the aforementioned svcs. cm to cont. to follow.
[2020-09-01 09:39] LABS: Amphetamine Screen Urine Not Detected (Not Detect); Barbiturates, Urine Not Detected (Not Detect); Benzodiazepines Screen Urine Not Detected (Not Detect); Cannabinoid Screen Urine Not Detected (Not Detect); Cocaine Screen Urine Not Detected (Not Detect); Opiate Screen Urine Not Detected (Not Detect); Phencyclidine Screen Urine Not Detected (Not Detect)
--- NOTE | 2020-09-01 10:16 | P.CONNP_ITS ---
History of Present Illness Reason for Consult Consult date: 08/31/20 Reason for consult: ESRD Chief Complaint Chief complaint: Acute respiratory failure History of Present Illness Narrative: ESRD mwf from [place] present s with severe resp failure requiring intubation. Now getting emergent HD Review of Systems Review of Systems Yes unobtainable due to endotracheal tube and Unobtainable due to mental status PMFSH Social History Social History (System 09/01/20 @ 08:29 by Gali Gonzalez) Alcohol intake: unknown Smoking Status: Unknown if ever smoked Use of substances other than those prescribed or required for medical reasons: Unable to respond Currently Displaying Signs/Symptoms of Drug Intoxication Withdrawal: No Advance Directives: Yes Advance Directives on File: Yes Advance Directives Date on File: 08/31/20 Do you have thoughts of harming others: None Do you have a plan to hurt others: No Plan service: No Current occupational status: disabled Meds Allergies Allergy/AdvReac Type Severity Reaction Status Date / Time No Known Allergies Allergy Verified 08/31/20 11:16 Home Medications Medication Instructions Recorded Confirmed Type B complex with C 20-folic acid 1 cap PO DAILY 08/31/20 08/31/20 History [Crispin Caps] albuterol sulfate [ProAir HFA] 2 puff INHALATION Q4-6H PRN 08/31/20 08/31/20 History amlodipine 5 mg PO DAILY 08/31/20 08/31/20 History aspirin 81 mg PO DAILY 08/31/20 08/31/20 History cholecalciferol (vitamin D3) 125 mcg PO DAILY 08/31/20 08/31/20 History [Vitamin D3] famotidine 20 mg PO BEDTIME 08/31/20 08/31/20 History ferric citrate [Auryxia] 210 mg PO TID 08/31/20 08/31/20 History fluticasone propionate [Flovent 1 puff INHALATION BID 08/31/20 08/31/20 History HFA] furosemide 80 mg PO DAILY 08/31/20 08/31/20 History loperamide 2 mg PO TID PRN 08/31/20 08/31/20 History metoprolol tartrate 25 mg PO BID 08/31/20 08/31/20 History nicotine 1 patch TRANSDERMAL Q24H 08/31/20 08/31/20 History omega-3 fatty acids [[place] 3] 1,000 mg PO DAILY 08/31/20 08/31/20 History paliperidone 3 mg PO QAM 08/31/20 08/31/20 History perphenazine 4 mg PO DAILY 08/31/20 08/31/20 History Physical Exam Vital Signs: Last Vital Signs Temp 98.1 F 09/01/20 04:00 Pulse 79 09/01/20 09:55 Resp 16 09/01/20 09:55 BP 149/67 H 09/01/20 09:55 Pulse Ox 97 09/01/20 09:55 Body Mass Index 29.6 Const General: other (Lethargic, diaphoretic, hypoxic, respiratory distress) HENMT Head: Yes normal to inspection, Yes normocephalic and Yes atraumatic Ears: external ears normal General nose exam: Normal external nose present Face and sinus: Yes normal facial exam Mouth: Normal oral and palatal mucosa present Throat: Yes posterior oropharynx normal Eyes Periorbital: periorbital findings normal Eyelids: Yes eyelids normal Conjunctivae: conjunctivae normal Sclerae: sclerae normal Corneas: corneas normal Pupils: Equal, round and reactive pupils present Direct Ophthalmoscopy: normal light reflex Neck Neck: Yes no lymphadenopathy and Yes trachea midline Chest Chest palpation & inspection: normal inspection of the chest Resp Effort & Inspection: respiratory distress Auscultation: diminished lung sounds diffuse Cardio Rate: regular rate Rhythm: regular rhythm Heart sounds: S1 normal heart sound present, S2 normal heart sound present and no murmurs GI Inspection: Yes normal to inspection Palpation (GI): Soft to palpation and No hepatosplenomegaly present Rectal Exam - Male: Yes other (Dark black stool, Hemoccult negative) General: Yes no CVA tenderness Back/Spine/Pelvis Back: no CVA tenderness Cervical Spine: normal cervical lordosis Thoracic/Lumbar Spine: thoracic and lumbar spine normal to inspection Skin Lesions: no lesions Rashes: no rashes Wounds: no wounds Neuro General: other (Altered mental status, diaphoretic, hypoxic, not responding to painful stim) Cranial nerves: Yes Equal, round and reactive pupils present Cognition (Neuro): normal cognition Motor exam (neuro): 5/5 motor strength present throughout Extrem General: Yes normal to inspection Psych Appearance: well kempt Mental Status: mental status grossly normal Speech and movement: Normal speech and movement present Affect: normal affect Attitude: cooperative Thought process: Normal thought process present Thought content: Normal thought content present Results Lab Results Result Diagrams: 09/01/20 05:35 09/01/20 05:35 Lab results: Chemistry 08/31/20 09/01/20 11:48 05:35 Sodium 127 L 135 Potassium 5.8 H 4.9 Carbon Dioxide 25 30 H BUN 62 H 30 H D Creatinine 8.11 H* 5.07 H* Calcium 8.6 8.4 Hematology 08/31/20 09/01/20 11:48 05:35 WBC 24.6 H 8.4 Hgb 9.5 L 8.1 L Plt Count 268 224 Urinalysis 08/31/20 12:05 Urine Color RED Urine Appearance CLOUDY Urine pH 7.5 Ur Specific [place] 1.015 Urine Protein 2+ H Urine Glucose (UA) 100 H Urine Ketones NEG Urine Blood 3+ H Urine Nitrite NEG Ur Leukocyte Esterase TRACE H Urine RBC 76-150 H Urine WBC 1-4 Ur Squamous Epith Cells TRACE Assessment and Plan (1) Respiratory failure: Qualifiers: Chronicity: acute Respiratory failure complication: hypoxia Qualified Code(s): J96.01 - Acute respiratory failure with hypoxia Status: Acute (2) Hypertensive crisis: Status: Acute (3) COVID-19: Status: Acute 1. ESRD 2. Resp faiure req inyubation 3. Anemia 4. COPD REC: emergent HD and pull fluid; control BP; protect AVF willfollow with team
--- NOTE | 2020-09-01 10:18 | P.PNNP_ITS ---
Subjective Subjective Date of Service: 09/01/20 Physical Exam Vital Signs: Vital Signs: Last Vital Signs Temp 98.1 F 09/01/20 04:00 Pulse 79 09/01/20 09:55 Resp 16 09/01/20 09:55 BP 149/67 H 09/01/20 09:55 Pulse Ox 97 09/01/20 09:55 Body Mass Index 29.6 Const: General: other (Lethargic, diaphoretic, hypoxic, respiratory distress) HENMT: Head: Yes normal to inspection, Yes normocephalic and Yes atraumatic Ears: external ears normal General nose exam: Normal external nose present Face and sinus: Yes normal facial exam Mouth: Normal oral and palatal mucosa present Throat: Yes posterior oropharynx normal Eyes: Periorbital: periorbital findings normal Eyelids: Yes eyelids normal Conjunctivae: conjunctivae normal Sclerae: sclerae normal Corneas: corneas normal Pupils: Equal, round and reactive pupils present Direct Ophthalmoscopy: normal light reflex Neck: Neck: Yes no lymphadenopathy and Yes trachea midline Chest: Chest palpation & inspection: normal inspection of the chest Resp: Effort & Inspection: respiratory distress Auscultation: diminished lung sounds diffuse Cardio: Rate: regular rate Rhythm: regular rhythm Heart sounds: S1 normal heart sound present, S2 normal heart sound present and no murmurs GI: Inspection: Yes normal to inspection Palpation (GI): Soft to palpation and No hepatosplenomegaly present Rectal Exam - Male: Yes other (Dark black stool, Hemoccult negative) : General: Yes no CVA tenderness Back/Spine/Pelvis: Back: no CVA tenderness Cervical Spine: normal cervical lordosis Thoracic/Lumbar Spine: thoracic and lumbar spine normal to inspection Skin: Lesions: no lesions Rashes: no rashes Wounds: no wounds Neuro: General: other (Altered mental status, diaphoretic, hypoxic, not responding to painful stim) Cranial nerves: Yes Equal, round and reactive pupils present Cognition (Neuro): normal cognition Speech: Abnormal speech present Motor exam (neuro): 5/5 motor strength present throughout Extrem: General: Yes normal to inspection Psych: Appearance: well kempt Mental Status: mental status grossly normal Speech and movement: Normal speech and movement present Affect: normal aff ect Attitude: cooperative Thought process: Normal thought process present Thought content: Normal thought content present Objective Data Labs CBC & Chem 7: 09/01/20 05:35 09/01/20 05:35 Labs: Laboratory Results - last 24 hr 08/31/20 08/31/20 08/31/20 11:36 11:48 11:48 WBC 24.6 H RBC 2.98 L Hgb 9.5 L Hct 29.4 L MCV 98.7 H MCH 31.9 MCHC 32.3 RDW 13.8 Plt Count 268 MPV 9.4 Immature Gran % (Auto) 2.1 H Neut % (Auto) 91.4 H Lymph % (Auto) 3.1 L [place] % (Auto) 3.0 Eos % (Auto) 0.1 Baso % (Auto) 0.3 Lymph # (Auto) 0.8 L [place] # (Auto) 0.7 Eos # (Auto) 0.0 Baso # (Auto) 0.1 Abs Immat Gran (auto) 0.51 H Absolute Neuts (auto) 22.5 H Absolute Nucleated RBC 0.000 Nucleated RBC % (auto) 0.0 Smear Tech's Comments VERIFIED PT 12.4 INR 1.0 APTT 31.9 D-Dimer 1345 ABG pH ABG pCO2 ABG pO2 ABG HCO3 ABG O2 Saturation ABG Base Excess VBG pH VBG pCO2 VBG pO2 VBG HCO3 VBG O2 Saturation VBG Base Excess Oxygen Given Sodium Potassium Chloride Carbon Dioxide Anion Gap BUN Creatinine Estim Creat Clear Calc Estimated GFR POC Glucose 274 H Random Glucose Lactic Acid Calcium Ferritin Total Bilirubin AST ALT Alkaline Phosphatase Troponin I High Sens C-Reactive Protein B-Natriuretic Peptide Total Protein Albumin Procalcitonin Urine Color Urine Appearance Urine pH Ur Specific [place] Urine Protein Urine Glucose (UA) Urine Ketones Urine Blood Urine Nitrite Ur Leukocyte Esterase Urine RBC Urine WBC Ur Squamous Epith Cells Urine Bacteria Stool Occult Blood Urine Opiates Screen Ur Barbiturates Screen Ur Phencyclidine Scrn Ur Amphetamines Screen U Benzodiazepines Scrn Urine Cocaine Screen U Marijuana (THC) Screen Coronavirus (PCR) Influenza Type A (PCR) Influenza Type B (PCR) RSV RNA Qual (PCR) SARS-CoV-2 IgG Ab 08/31/20 08/31/20 08/31/20 11:48 11:48 11:48 WBC RBC Hgb Hct MCV MCH MCHC RDW Plt Count MPV Immature Gran % (Auto) Neut % (Auto) Lymph % (Auto) [place] % (Auto) Eos % (Auto) Baso % (Auto) Lymph # (Auto) [place] # (Auto) Eos # (Auto) Baso # (Auto) Abs Immat Gran (auto) Absolute Neuts (auto) Absolute Nucleated RBC Nucleated RBC % (auto) Smear Tech's Comments PT INR APTT D-Dimer ABG pH ABG pCO2 ABG pO2 ABG HCO3 ABG O2 Saturation ABG Base Excess VBG pH VBG pCO2 VBG pO2 VBG HCO3 VBG O2 Saturation VBG Base Excess Oxygen Given Sodium 127 L Potassium 5.8 H Chloride 88 L Carbon Dioxide 25 Anion Gap 20 BUN 62 H Creatinine 8.11 H* Estim Creat Clear Calc TNP Estimated GFR 7 POC Glucose Random Glucose 296 H Lactic Acid Calcium 8.6 Ferritin 3217 H Total Bilirubin 0.4 AST 25 ALT 20 Alkaline Phosphatase 92 Troponin I High Sens 50.0 H C-Reactive Protein 3.67 H B-Natriuretic Peptide 1286 H Total Protein 6.4 L Albumin 3.7 Procalcitonin 0.28 Urine Color Urine Appearance Urine pH Ur Specific [place] Urine Protein Urine Glucose (UA) Urine Ketones Urine Blood Urine Nitrite Ur Leukocyte Esterase Urine RBC Urine WBC Ur Squamous Epith Cells Urine Bacteria Stool Occult Blood Urine Opiates Screen Ur Barbiturates Screen Ur Phencyclidine Scrn Ur Amphetamines Screen U Benzodiazepines Scrn Urine Cocaine Screen U Marijuana (THC) Screen Coronavirus (PCR) Influenza Type A (PCR) Influenza Type B (PCR) RSV RNA Qual (PCR) SARS-CoV-2 IgG Ab 08/31/20 08/31/20 08/31/20 11:48 11:49 12:05 WBC RBC Hgb Hct MCV MCH MCHC RDW Plt Count MPV Immature Gran % (Auto) Neut % (Auto) Lymph % (Auto) [place] % (Auto) Eos % (Auto) Baso % (Auto) Lymph # (Auto) [place] # (Auto) Eos # (Auto) Baso # (Auto) Abs Immat Gran (auto) Absolute Neuts (auto) Absolute Nucleated RBC Nucleated RBC % (auto) Smear Tech's Comments PT INR APTT D-Dimer ABG pH ABG pCO2 ABG pO2 ABG HCO3 ABG O2 Saturation ABG Base Excess VBG pH VBG pCO2 VBG pO2 VBG HCO3 VBG O2 Saturation VBG Base Excess Oxygen Given Sodium Potassium Chloride Carbon Dioxide Anion Gap BUN Creatinine Estim Creat Clear Calc Estimated GFR POC Glucose Random Glucose Lactic Acid 1.2 Calcium Ferritin Total Bilirubin AST ALT Alkaline Phosphatase Troponin I High Sens C-Reactive Protein B-Natriuretic Peptide Total Protein Albumin Procalcitonin Urine Color RED Urine Appearance CLOUDY Urine pH 7.5 Ur Specific [place] 1.015 Urine Protein 2+ H Urine Glucose (UA) 100 H Urine Ketones NEG Urine Blood 3+ H Urine Nitrite NEG Ur Leukocyte Esterase TRACE H Urine RBC 76-150 H Urine WBC 1-4 Ur Squamous Epith Cells TRACE Urine Bacteria NONE Stool Occult Blood Urine Opiates Screen Ur Barbiturates Screen Ur Phencyclidine Scrn Ur Amphetamines Screen U Benzodiazepines Scrn Urine Cocaine Screen U Marijuana (THC) Screen Coronavirus (PCR) Influenza Type A (PCR) Influenza Type B (PCR) RSV RNA Qual (PCR) SARS-CoV-2 IgG Ab Positive 08/31/20 08/31/20 08/31/20 12:05 13:15 13:40 WBC RBC Hgb Hct MCV MCH MCHC RDW Plt Count MPV Immature Gran % (Auto) Neut % (Auto) Lymph % (Auto) [place] % (Auto) Eos % (Auto) Baso % (Auto) Lymph # (Auto) [place] # (Auto) Eos # (Auto) Baso # (Auto) Abs Immat Gran (auto) Absolute Neuts (auto) Absolute Nucleated RBC Nucleated RBC % (auto) Smear Tech's Comments PT INR APTT D-Dimer ABG pH 7.14 L* ABG pCO2 75 H* ABG pO2 88 ABG HCO3 25 ABG O2 Saturation 94.4 ABG Base Excess -4.7 VBG pH VBG pCO2 VBG pO2 VBG HCO3 VBG O2 Saturation VBG Base Excess Oxygen Given 100% Sodium Potassium Chloride Carbon Dioxide Anion Gap BUN Creatinine Estim Creat Clear Calc Estimated GFR POC Glucose Random Glucose Lactic Acid Calcium Ferritin Total Bilirubin AST ALT Alkaline Phosphatase Troponin I High Sens C-Reactive Protein B-Natriuretic Peptide Total Protein Albumin Procalcitonin Urine Color Urine Appearance Urine pH Ur Specific [place] Urine Protein Urine Glucose (UA) Urine Ketones Urine Blood Urine Nitrite Ur Leukocyte Esterase Urine RBC Urine WBC Ur Squamous Epith Cells Urine Bacteria Stool Occult Blood NEG Urine Opiates Screen Not Detected Ur Barbiturates Screen Not Detected Ur Phencyclidine Scrn Not Detected Ur Amphetamines Screen Not Detected U Benzodiazepines Scrn Not Detected Urine Cocaine Screen Not Detected U Marijuana (THC) Screen Not Detected Coronavirus (PCR) Influenza Type A (PCR) Influenza Type B (PCR) RSV RNA Qual (PCR) SARS-CoV-2 IgG Ab 08/31/20 08/31/20 09/01/20 14:45 17:15 01:08 WBC RBC Hgb Hct MCV MCH MCHC RDW Plt Count MPV Immature Gran % (Auto) Neut % (Auto) Lymph % (Auto) [place] % (Auto) Eos % (Auto) Baso % (Auto) Lymph # (Auto) [place] # (Auto) Eos # (Auto) Baso # (Auto) Abs Immat Gran (auto) Absolute Neuts (auto) Absolute Nucleated RBC Nucleated RBC % (auto) Smear Tech's Comments PT INR APTT D-Dimer ABG pH ABG pCO2 ABG pO2 ABG HCO3 ABG O2 Saturation ABG Base Excess VBG pH VBG pCO2 VBG pO2 VBG HCO3 VBG O2 Saturation VBG Base Excess Oxygen Given Sodium Potassium Chloride Carbon Dioxide Anion Gap BUN Creatinine Estim Creat Clear Calc Estimated GFR POC Glucose 122 H 64 Random Glucose Lactic Acid Calcium Ferritin Total Bilirubin AST ALT Alkaline Phosphatase Troponin I High Sens C-Reactive Protein B-Natriuretic Peptide Total Protein Albumin Procalcitonin Urine Color Urine Appearance Urine pH Ur Specific [place] Urine Protein Urine Glucose (UA) Urine Ketones Urine Blood Urine Nitrite Ur Leukocyte Esterase Urine RBC Urine WBC Ur Squamous Epith Cells Urine Bacteria Stool Occult Blood Urine Opiates Screen Ur Barbiturates Screen Ur Phencyclidine Scrn Ur Amphetamines Screen U Benzodiazepines Scrn Urine Cocaine Screen U Marijuana (THC) Screen Coronavirus (PCR) POSITIVE A Influenza Type A (PCR) NEGATIVE Influenza Type B (PCR) NEGATIVE RSV RNA Qual (PCR) NEGATIVE SARS-CoV-2 IgG Ab 09/01/20 09/01/20 09/01/20 05:35 05:35 05:35 WBC 8.4 RBC 2.67 L Hgb 8.1 L Hct 26.1 L MCV 97.8 MCH 30.3 MCHC 31.0 RDW 14.0 Plt Count 224 MPV 9.9 Immature Gran % (Auto) 0.8 H Neut % (Auto) 80.7 H Lymph % (Auto) 9.0 L [place] % (Auto) 8.6 Eos % (Auto) 0.5 Baso % (Auto) 0.4 Lymph # (Auto) 0.8 L [place] # (Auto) 0.7 Eos # (Auto) 0.0 Baso # (Auto) 0.0 Abs Immat Gran (auto) 0.07 H Absolute Neuts (auto) 6.8 Absolute Nucleated RBC 0.000 Nucleated RBC % (auto) 0.0 Smear Tech's Comments PT INR APTT D-Dimer 1271 ABG pH ABG pCO2 ABG pO2 ABG HCO3 ABG O2 Saturation ABG Base Excess VBG pH VBG pCO2 VBG pO2 VBG HCO3 VBG O2 Saturation VBG Base Excess Oxygen Given Sodium 135 Potassium 4.9 Chloride 95 L Carbon Dioxide 30 H Anion Gap 15 BUN 30 H D Creatinine 5.07 H* Estim Creat Clear Calc 16.5 Estimated GFR 12 POC Glucose Random Glucose 105 D Lactic Acid Calcium 8.4 Ferritin 2500 H Total Bilirubin AST ALT Alkaline Phosphatase Troponin I High Sens C-Reactive Protein 5.53 H B-Natriuretic Peptide Total Protein Albumin Procalcitonin Urine Color Urine Appearance Urine pH Ur Specific [place] Urine Protein Urine Glucose (UA) Urine Ketones Urine Blood Urine Nitrite Ur Leukocyte Esterase Urine RBC Urine WBC Ur Squamous Epith Cells Urine Bacteria Stool Occult Blood Urine Opiates Screen Ur Barbiturates Screen Ur Phencyclidine Scrn Ur Amphetamines Screen U Benzodiazepines Scrn Urine Cocaine Screen U Marijuana (THC) Screen Coronavirus (PCR) Influenza Type A (PCR) Influenza Type B (PCR) RSV RNA Qual (PCR) SARS-CoV-2 IgG Ab 09/01/20 09/01/20 09/01/20 05:35 05:35 05:35 WBC RBC Hgb Hct MCV MCH MCHC RDW Plt Count MPV Immature Gran % (Auto) Neut % (Auto) Lymph % (Auto) [place] % (Auto) Eos % (Auto) Baso % (Auto) Lymph # (Auto) [place] # (Auto) Eos # (Auto) Baso # (Auto) Abs Immat Gran (auto) Absolute Neuts (auto) Absolute Nucleated RBC Nucleated RBC % (auto) Smear Tech's Comments PT INR APTT D-Dimer ABG pH ABG pCO2 ABG pO2 ABG HCO3 ABG O2 Saturation ABG Base Excess VBG pH 7.48 H VBG pCO2 44 VBG pO2 50 VBG HCO3 32 VBG O2 Saturation 86.5 VBG Base Excess 7.7 Oxygen Given Sodium Potassium Chloride Carbon Dioxide Anion Gap BUN Creatinine Estim Creat Clear Calc Estimated GFR POC Glucose Random Glucose Lactic Acid Calcium Ferritin Total Bilirubin AST ALT Alkaline Phosphatase Troponin I High Sens 299.7 H D C-Reactive Protein B-Natriuretic Peptide 1348 H Total Protein Albumin Procalcitonin 8.61 Urine Color Urine Appearance Urine pH Ur Specific [place] Urine Protein Urine Glucose (UA) Urine Ketones Urine Blood Urine Nitrite Ur Leukocyte Esterase Urine RBC Urine WBC Ur Squamous Epith Cells Urine Bacteria Stool Occult Blood Urine Opiates Screen Ur Barbiturates Screen Ur Phencyclidine Scrn Ur Amphetamines Screen U Benzodiazepines Scrn Urine Cocaine Screen U Marijuana (THC) Screen Coronavirus (PCR) Influenza Type A (PCR) Influenza Type B (PCR) RSV RNA Qual (PCR) SARS-CoV-2 IgG Ab 09/01/20 06:35 WBC RBC Hgb Hct MCV MCH MCHC RDW Plt Count MPV Immature Gran % (Auto) Neut % (Auto) Lymph % (Auto) [place] % (Auto) Eos % (Auto) Baso % (Auto) Lymph # (Auto) [place] # (Auto) Eos # (Auto) Baso # (Auto) Abs Immat Gran (auto) Absolute Neuts (auto) Absolute Nucleated RBC Nucleated RBC % (auto) Smear Tech's Comments PT INR APTT D-Dimer ABG pH ABG pCO2 ABG pO2 ABG HCO3 ABG O2 Saturation ABG Base Excess VBG pH VBG pCO2 VBG pO2 VBG HCO3 VBG O2 Saturation VBG Base Excess Oxygen Given Sodium Potassium Chloride Carbon Dioxide Anion Gap BUN Creatinine Estim Creat Clear Calc Estimated GFR POC Glucose 87 Random Glucose Lactic Acid Calcium Ferritin Total Bilirubin AST ALT Alkaline Phosphatase Troponin I High Sens C-Reactive Protein B-Natriuretic Peptide Total Protein Albumin Procalcitonin Urine Color Urine Appearance Urine pH Ur Specific [place] Urine Protein Urine Glucose (UA) Urine Ketones Urine Blood Urine Nitrite Ur Leukocyte Esterase Urine RBC Urine WBC Ur Squamous Epith Cells Urine Bacteria Stool Occult Blood Urine Opiates Screen Ur Barbiturates Screen Ur Phencyclidine Scrn Ur Amphetamines Screen U Benzodiazepines Scrn Urine Cocaine Screen U Marijuana (THC) Screen Coronavirus (PCR) Influenza Type A (PCR) Influenza Type B (PCR) RSV RNA Qual (PCR) SARS-CoV-2 IgG Ab Assessment & Plan Assessment and plan (1) Respiratory failure: Status: Acute Assessment and Plan: ESRD: usu [facility] unit ( [phone]) Resp Failure: COPD/CHF H/O COVID 08/19/21 Anemai HTN REC: next HD then try to get back on mw schedule; procrit as oredered (2) Hypertensive crisis: Status: Acute (3) COVID-19: Status: Acute Assessment and Plan: ESRD: usu [facility] [place] [facility] unit ( [phone]) Resp Failure: COPD/CHF H/O COVID 08/19/21 Anemai HTN REC: next HD th then try to get back on mwf schedule; procrit as oredered Time Spent With Patient Time: Total time spent is greater than 50% in coordination of care (as documented) at patient's floor/unit and/or counseling patient: Time with patient: Greater than 35 minutes
--- NOTE | 2020-09-01 10:56 | P.DS_ITS ---
DS: Providers Provider Date of Service: 09/01/20 Date of admission: 08/31/20 14:20 Primary care physician: Sal Valencia MD Consults: 09/01/20 07:37 Consult to Cardiology Stat Consulting Provider: Trev Mccoy Reason for consultation: Acute resp failure 2? CHF, w elevated troponin 09/01/20 09:13 Consult to Nephrology Stat Consulting Provider: John Leger Reason for consultation: END-STAGE RENAL FAILURE WITH ACUTE PULMONARY EDEMA Has provider been notified: Yes DS: Medications Discharge Medications Home Medications: Home Medications Medication Instructions Recorded Confirmed B complex with C 20-folic acid 1 cap PO DAILY 08/31/20 08/31/20 [[place] Caps] albuterol sulfate [ProAir HFA] 2 puff INHALATION Q4-6H PRN 08/31/20 08/31/20 amlodipine 5 mg PO DAILY 08/31/20 08/31/20 aspirin 81 mg PO DAILY 08/31/20 08/31/20 cholecalciferol (vitamin D3) 125 mcg PO DAILY 08/31/20 08/31/20 [Vitamin D3] famotidine 20 mg PO BEDTIME 08/31/20 08/31/20 ferric citrate [Auryxia] 210 mg PO TID 08/31/20 08/31/20 fluticasone propionate [Flovent 1 puff INHALATION BID 08/31/20 08/31/20 HFA] furosemide 80 mg PO DAILY 08/31/20 08/31/20 loperamide 2 mg PO TID PRN 08/31/20 08/31/20 metoprolol tartrate 25 mg PO BID 08/31/20 08/31/20 nicotine 1 patch TRANSDERMAL Q24H 08/31/20 08/31/20 omega-3 fatty acids [[place] 3] 1,000 mg PO DAILY 08/31/20 08/31/20 paliperidone 3 mg PO QAM 08/31/20 08/31/20 perphenazine 4 mg PO DAILY 08/31/20 08/31/20 DS: Summary Time Spent with Patient Time attestation: Total time spent providing and/or coordinating discharge services: Physical Exam Vital Signs: Vital Signs: Last Vital Signs Temp 98.1 F 09/01/20 04:00 Pulse 79 09/01/20 09:55 Resp 16 09/01/20 09:55 BP 149/67 H 09/01/20 09:55 Pulse Ox 97 09/01/20 09:55 Body Mass Index 29.6 DS: Data Data Completed and Pending Labs on day of discharge: Laboratory Tests 08/31/20 08/31/20 08/31/20 11:36 11:48 11:48 WBC 24.6 H RBC 2.98 L Hgb 9.5 L Hct 29.4 L MCV 98.7 H MCH 31.9 MCHC 32.3 RDW 13.8 Plt Count 268 MPV 9.4 Immature Gran % (Auto) 2.1 H Neut % (Auto) 91.4 H Lymph % (Auto) 3.1 L [place] % (Auto) 3.0 Eos % (Auto) 0.1 Baso % (Auto) 0.3 Lymph # (Auto) 0.8 L [place] # (Auto) 0.7 Eos # (Auto) 0.0 Baso # (Auto) 0.1 Abs Immat Gran (auto) 0.51 H Absolute Neuts (auto) 22.5 H Absolute Nucleated RBC 0.000 Nucleated RBC % (auto) 0.0 Smear Tech's Comments VERIFIED PT 12.4 INR 1.0 APTT 31.9 D-Dimer 1345 ABG pH ABG pCO2 ABG pO2 ABG HCO3 ABG O2 Saturation ABG Base Excess VBG pH VBG pCO2 VBG pO2 VBG HCO3 VBG O2 Saturation VBG Base Excess Oxygen Given Sodium Potassium Chloride Carbon Dioxide Anion Gap BUN Creatinine Estim Creat Clear Calc Estimated GFR POC Glucose 274 H Random Glucose Lactic Acid Calcium Ferritin Total Bilirubin AST ALT Alkaline Phosphatase Troponin I High Sens C-Reactive Protein B-Natriuretic Peptide Total Protein Albumin Procalcitonin Urine Color Urine Appearance Urine pH Ur Specific [place] Urine Protein Urine Glucose (UA) Urine Ketones Urine Blood Urine Nitrite Ur Leukocyte Esterase Urine RBC Urine WBC Ur Squamous Epith Cells Urine Bacteria Stool Occult Blood Urine Opiates Screen Ur Barbiturates Screen Ur Phencyclidine Scrn Ur Amphetamines Screen U Benzodiazepines Scrn Urine Cocaine Screen U Marijuana (THC) Screen Coronavirus (PCR) Influenza Type A (PCR) Influenza Type B (PCR) RSV RNA Qual (PCR) SARS-CoV-2 IgG Ab 08/31/20 08/31/20 08/31/20 11:48 11:48 11:48 WBC RBC Hgb Hct MCV MCH MCHC RDW Plt Count MPV Immature Gran % (Auto) Neut % (Auto) Lymph % (Auto) [place] % (Auto) Eos % (Auto) Baso % (Auto) Lymph # (Auto) [place] # (Auto) Eos # (Auto) Baso # (Auto) Abs Immat Gran (auto) Absolute Neuts (auto) Absolute Nucleated RBC Nucleated RBC % (auto) Smear Tech's Comments PT INR APTT D-Dimer ABG pH ABG pCO2 ABG pO2 ABG HCO3 ABG O2 Saturation ABG Base Excess VBG pH VBG pCO2 VBG pO2 VBG HCO3 VBG O2 Saturation VBG Base Excess Oxygen Given Sodium 127 L Potassium 5.8 H Chloride 88 L Carbon Dioxide 25 Anion Gap 20 BUN 62 H Creatinine 8.11 H* Estim Creat Clear Calc TNP Estimated GFR 7 POC Glucose Random Glucose 296 H Lactic Acid Calcium 8.6 Ferritin 3217 H Total Bilirubin 0.4 AST 25 ALT 20 Alkaline Phosphatase 92 Troponin I High Sens 50.0 H C-Reactive Protein 3.67 H B-Natriuretic Peptide 1286 H Total Protein 6.4 L Albumin 3.7 Procalcitonin 0.28 Urine Color Urine Appearance Urine pH Ur Specific [place] Urine Protein Urine Glucose (UA) Urine Ketones Urine Blood Urine Nitrite Ur Leukocyte Esterase Urine RBC Urine WBC Ur Squamous Epith Cells Urine Bacteria Stool Occult Blood Urine Opiates Screen Ur Barbiturates Screen Ur Phencyclidine Scrn Ur Amphetamines Screen U Benzodiazepines Scrn Urine Cocaine Screen U Marijuana (THC) Screen Coronavirus (PCR) Influenza Type A (PCR) Influenza Type B (PCR) RSV RNA Qual (PCR) SARS-CoV-2 IgG Ab 08/31/20 08/31/20 08/31/20 11:48 11:49 12:05 WBC RBC Hgb Hct MCV MCH MCHC RDW Plt Count MPV Immature Gran % (Auto) Neut % (Auto) Lymph % (Auto) [place] % (Auto) Eos % (Auto) Baso % (Auto) Lymph # (Auto) [place] # (Auto) Eos # (Auto) Baso # (Auto) Abs Immat Gran (auto) Absolute Neuts (auto) Absolute Nucleated RBC Nucleated RBC % (auto) Smear Tech's Comments PT INR APTT D-Dimer ABG pH ABG pCO2 ABG pO2 ABG HCO3 ABG O2 Saturation ABG Base Excess VBG pH VBG pCO2 VBG pO2 VBG HCO3 VBG O2 Saturation VBG Base Excess Oxygen Given Sodium Potassium Chloride Carbon Dioxide Anion Gap BUN Creatinine Estim Creat Clear Calc Estimated GFR POC Glucose Random Glucose Lactic Acid 1.2 Calcium Ferritin Total Bilirubin AST ALT Alkaline Phosphatase Troponin I High Sens C-Reactive Protein B-Natriuretic Peptide Total Protein Albumin Procalcitonin Urine Color RED Urine Appearance CLOUDY Urine pH 7.5 Ur Specific [place] 1.015 Urine Protein 2+ H Urine Glucose (UA) 100 H Urine Ketones NEG Urine Blood 3+ H Urine Nitrite NEG Ur Leukocyte Esterase TRACE H Urine RBC 76-150 H Urine WBC 1-4 Ur Squamous Epith Cells TRACE Urine Bacteria NONE Stool Occult Blood Urine Opiates Screen Ur Barbiturates Screen Ur Phencyclidine Scrn Ur Amphetamines Screen U Benzodiazepines Scrn Urine Cocaine Screen U Marijuana (THC) Screen Coronavirus (PCR) Influenza Type A (PCR) Influenza Type B (PCR) RSV RNA Qual (PCR) SARS-CoV-2 IgG Ab Positive 08/31/20 08/31/20 08/31/20 12:05 13:15 13:40 WBC RBC Hgb Hct MCV MCH MCHC RDW Plt Count MPV Immature Gran % (Auto) Neut % (Auto) Lymph % (Auto) [place] % (Auto) Eos % (Auto) Baso % (Auto) Lymph # (Auto) [place] # (Auto) Eos # (Auto) Baso # (Auto) Abs Immat Gran (auto) Absolute Neuts (auto) Absolute Nucleated RBC Nucleated RBC % (auto) Smear Tech's Comments PT INR APTT D-Dimer ABG pH 7.14 L* ABG pCO2 75 H* ABG pO2 88 ABG HCO3 25 ABG O2 Saturation 94.4 ABG Base Excess -4.7 VBG pH VBG pCO2 VBG pO2 VBG HCO3 VBG O2 Saturation VBG Base Excess Oxygen Given 100% Sodium Potassium Chloride Carbon Dioxide Anion Gap BUN Creatinine Estim Creat Clear Calc Estimated GFR POC Glucose Random Glucose Lactic Acid Calcium Ferritin Total Bilirubin AST ALT Alkaline Phosphatase Troponin I High Sens C-Reactive Protein B-Natriuretic Peptide Total Protein Albumin Procalcitonin Urine Color Urine Appearance Urine pH Ur Specific [place] Urine Protein Urine Glucose (UA) Urine Ketones Urine Blood Urine Nitrite Ur Leukocyte Esterase Urine RBC Urine WBC Ur Squamous Epith Cells Urine Bacteria Stool Occult Blood NEG Urine Opiates Screen Not Detected Ur Barbiturates Screen Not Detected Ur Phencyclidine Scrn Not Detected Ur Amphetamines Screen Not Detected U Benzodiazepines Scrn Not Detected Urine Cocaine Screen Not Detected U Marijuana (THC) Screen Not Detected Coronavirus (PCR) Influenza Type A (PCR) Influenza Type B (PCR) RSV RNA Qual (PCR) SARS-CoV-2 IgG Ab 08/31/20 08/31/20 09/01/20 14:45 17:15 01:08 WBC RBC Hgb Hct MCV MCH MCHC RDW Plt Count MPV Immature Gran % (Auto) Neut % (Auto) Lymph % (Auto) [place] % (Auto) Eos % (Auto) Baso % (Auto) Lymph # (Auto) [place] # (Auto) Eos # (Auto) Baso # (Auto) Abs Immat Gran (auto) Absolute Neuts (auto) Absolute Nucleated RBC Nucleated RBC % (auto) Smear Tech's Comments PT INR APTT D-Dimer ABG pH ABG pCO2 ABG pO2 ABG HCO3 ABG O2 Saturation ABG Base Excess VBG pH VBG pCO2 VBG pO2 VBG HCO3 VBG O2 Saturation VBG Base Excess Oxygen Given Sodium Potassium Chloride Carbon Dioxide Anion Gap BUN Creatinine Estim Creat Clear Calc Estimated GFR POC Glucose 122 H 64 Random Glucose Lactic Acid Calcium Ferritin Total Bilirubin AST ALT Alkaline Phosphatase Troponin I High Sens C-Reactive Protein B-Natriuretic Peptide Total Protein Albumin Procalcitonin Urine Color Urine Appearance Urine pH Ur Specific [place] Urine Protein Urine Glucose (UA) Urine Ketones Urine Blood Urine Nitrite Ur Leukocyte Esterase Urine RBC Urine WBC Ur Squamous Epith Cells Urine Bacteria Stool Occult Blood Urine Opiates Screen Ur Barbiturates Screen Ur Phencyclidine Scrn Ur Amphetamines Screen U Benzodiazepines Scrn Urine Cocaine Screen U Marijuana (THC) Screen Coronavirus (PCR) POSITIVE A Influenza Type A (PCR) NEGATIVE Influenza Type B (PCR) NEGATIVE RSV RNA Qual (PCR) NEGATIVE SARS-CoV-2 IgG Ab 09/01/20 09/01/20 09/01/20 05:35 05:35 05:35 WBC 8.4 RBC 2.67 L Hgb 8.1 L Hct 26.1 L MCV 97.8 MCH 30.3 MCHC 31.0 RDW 14.0 Plt Count 224 MPV 9.9 Immature Gran % (Auto) 0.8 H Neut % (Auto) 80.7 H Lymph % (Auto) 9.0 L [place] % (Auto) 8.6 Eos % (Auto) 0.5 Baso % (Auto) 0.4 Lymph # (Auto) 0.8 L [place] # (Auto) 0.7 Eos # (Auto) 0.0 Baso # (Auto) 0.0 Abs Immat Gran (auto) 0.07 H Absolute Neuts (auto) 6.8 Absolute Nucleated RBC 0.000 Nucleated RBC % (auto) 0.0 Smear Tech's Comments PT INR APTT D-Dimer 1271 ABG pH ABG pCO2 ABG pO2 ABG HCO3 ABG O2 Saturation ABG Base Excess VBG pH VBG pCO2 VBG pO2 VBG HCO3 VBG O2 Saturation VBG Base Excess Oxygen Given Sodium 135 Potassium 4.9 Chloride 95 L Carbon Dioxide 30 H Anion Gap 15 BUN 30 H D Creatinine 5.07 H* Estim Creat Clear Calc 16.5 Estimated GFR 12 POC Glucose Random Glucose 105 D Lactic Acid Calcium 8.4 Ferritin 2500 H Total Bilirubin AST ALT Alkaline Phosphatase Troponin I High Sens C-Reactive Protein 5.53 H B-Natriuretic Peptide Total Protein Albumin Procalcitonin Urine Color Urine Appearance Urine pH Ur Specific [place] Urine Protein Urine Glucose (UA) Urine Ketones Urine Blood Urine Nitrite Ur Leukocyte Esterase Urine RBC Urine WBC Ur Squamous Epith Cells Urine Bacteria Stool Occult Blood Urine Opiates Screen Ur Barbiturates Screen Ur Phencyclidine Scrn Ur Amphetamines Screen U Benzodiazepines Scrn Urine Cocaine Screen U Marijuana (THC) Screen Coronavirus (PCR) Influenza Type A (PCR) Influenza Type B (PCR) RSV RNA Qual (PCR) SARS-CoV-2 IgG Ab 09/01/20 09/01/20 09/01/20 05:35 05:35 05:35 WBC RBC Hgb Hct MCV MCH MCHC RDW Plt Count MPV Immature Gran % (Auto) Neut % (Auto) Lymph % (Auto) [place] % (Auto) Eos % (Auto) Baso % (Auto) Lymph # (Auto) [place] # (Auto) Eos # (Auto) Baso # (Auto) Abs Immat Gran (auto) Absolute Neuts (auto) Absolute Nucleated RBC Nucleated RBC % (auto) Smear Tech's Comments PT INR APTT D-Dimer ABG pH ABG pCO2 ABG pO2 ABG HCO3 ABG O2 Saturation ABG Base Excess VBG pH 7.48 H VBG pCO2 44 VBG pO2 50 VBG HCO3 32 VBG O2 Saturation 86.5 VBG Base Excess 7.7 Oxygen Given Sodium Potassium Chloride Carbon Dioxide Anion Gap BUN Creatinine Estim Creat Clear Calc Estimated GFR POC Glucose Random Glucose Lactic Acid Calcium Ferritin Total Bilirubin AST ALT Alkaline Phosphatase Troponin I High Sens 299.7 H D C-Reactive Protein B-Natriuretic Peptide 1348 H Total Protein Albumin Procalcitonin 8.61 Urine Color Urine Appearance Urine pH Ur Specific [place] Urine Protein Urine Glucose (UA) Urine Ketones Urine Blood Urine Nitrite Ur Leukocyte Esterase Urine RBC Urine WBC Ur Squamous Epith Cells Urine Bacteria Stool Occult Blood Urine Opiates Screen Ur Barbiturates Screen Ur Phencyclidine Scrn Ur Amphetamines Screen U Benzodiazepines Scrn Urine Cocaine Screen U Marijuana (THC) Screen Coronavirus (PCR) Influenza Type A (PCR) Influenza Type B (PCR) RSV RNA Qual (PCR) SARS-CoV-2 IgG Ab 09/01/20 06:35 WBC RBC Hgb Hct MCV MCH MCHC RDW Plt Count MPV Immature Gran % (Auto) Neut % (Auto) Lymph % (Auto) [place] % (Auto) Eos % (Auto) Baso % (Auto) Lymph # (Auto) [place] # (Auto) Eos # (Auto) Baso # (Auto) Abs Immat Gran (auto) Absolute Neuts (auto) Absolute Nucleated RBC Nucleated RBC % (auto) Smear Tech's Comments PT INR APTT D-Dimer ABG pH ABG pCO2 ABG pO2 ABG HCO3 ABG O2 Saturation ABG Base Excess VBG pH VBG pCO2 VBG pO2 VBG HCO3 VBG O2 Saturation VBG Base Excess Oxygen Given Sodium Potassium Chloride Carbon Dioxide Anion Gap BUN Creatinine Estim Creat Clear Calc Estimated GFR POC Glucose 87 Random Glucose Lactic Acid Calcium Ferritin Total Bilirubin AST ALT Alkaline Phosphatase Troponin I High Sens C-Reactive Protein B-Natriuretic Peptide Total Protein Albumin Procalcitonin Urine Color Urine Appearance Urine pH Ur Specific [place] Urine Protein Urine Glucose (UA) Urine Ketones Urine Blood Urine Nitrite Ur Leukocyte Esterase Urine RBC Urine WBC Ur Squamous Epith Cells Urine Bacteria Stool Occult Blood Urine Opiates Screen Ur Barbiturates Screen Ur Phencyclidine Scrn Ur Amphetamines Screen U Benzodiazepines Scrn Urine Cocaine Screen U Marijuana (THC) Screen Coronavirus (PCR) Influenza Type A (PCR) Influenza Type B (PCR) RSV RNA Qual (PCR) SARS-CoV-2 IgG Ab Preliminary micro results at discharge 08/31/20 Unknown Urine Culture - Preliminary Urine Catheterized - Straight Catheter No growth to date. Discharge Plan Discharge Discharge Medications: No Action loperamide 2 mg Capsule 2 mg PO TID PRN (Reason: Diarrhea) RF: 0 nicotine 14 mg/24 hr Patch 24 Hour 1 patch TRANSDERMAL Q24H RF: 0 amlodipine 5 mg Tablet 5 mg PO DAILY RF: 0 aspirin 81 mg Tablet,Delayed Release (Dr/Ec) 81 mg PO DAILY RF: 0 famotidine 20 mg Tablet 20 mg PO BEDTIME RF: 0 furosemide 80 mg Tablet 80 mg PO DAILY RF: 0 perphenazine 4 mg Tablet 4 mg PO DAILY RF: 0 metoprolol tartrate 50 mg Tablet 25 mg PO BID RF: 0 [place] Caps 1 mg Capsule 1 cap PO DAILY RF: 0 albuterol sulfate [ProAir HFA] 90 mcg/actuation Hfa Aerosol Inhaler 2 puff INHALATION Q4-6H PRN (Reason: Shortness Of Breath) RF: 0 Flovent HFA 110 mcg/actuation Hfa Aerosol Inhaler 1 puff INHALATION BID RF: 0 [place] 3 Capsule 1,000 mg PO DAILY RF: 0 paliperidone 3 mg Tablet Extended Release 24hr 3 mg PO QAM RF: 0 cholecalciferol (vitamin D3) [Vitamin D3] 125 mcg (5,000 unit) Tablet 125 mcg PO DAILY RF: 0 Auryxia 210 mg iron Tablet 210 mg PO TID RF: 0
--- NOTE | 2020-09-01 10:56 | MHC.CLN ---
RECOMMEND 2GM NA LOW PHOS, LOW K+ DIET PER RENAL
--- NOTE | 2020-09-01 11:07 | PM.CNCAR ---
History of Present Illness History of Present Illness Date of Service: 09/01/20 Requesting physician: Milo Dela Cruz Consult reason: congestive heart failure Chief complaint: Acute respiratory failure Narrative: Thank you for inviting consult on Narinder for respiratory failure. 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 He also has history of hypertension, scizo affective disorder was not feeling well yesterday. He was getting short of breath in his room made called 911. When he arrived in the emergency room he was in severe respiratory distress and was intubated. He had missed his dialysis yesterday. He also noted to have a hypertensive urgency. He recently has been diagnosed with COVID, however he says he has not missed his dialysis session says. He also says that he has had good compliance with fluid and salt intake as recommended. He does not monitor his blood pressure in between dialysis sessions. He had no chest pain is yesterday. Today says he has cough and is feeling congested but has improved in breathing compared to yesterday. He did get dialysis yesterday. His blood pressure yesterday after intubation and nitroglycerin had dropped. Right now blood pressure is again elevated. He denies any chest pain, palpitations, lightheadedness, syncope. Review of Systems Constitutional: Constitutional: Reports fatigue and Reports weakness Cardiovascular: Cardiovascular: Denies Abdominal Distension, Denies chest pain, Denies palpitations and Reports dyspnea Respiratory: Respiratory: Reports chest congestion, Reports excessive phlegm production and Reports dyspnea Gastrointestinal: Gastrointestinal: Reports no additional gastrointestinal complaints Genitourinary: Genitourinary: Reports no additional male genitourinary complaints Musculoskeletal: Musculoskeletal: Reports no additional musculoskeletal complaints Neurologic: Reports weakness Psychiatric: Psychiatric: Reports no additional psychiatric complaints Endocrine: Endocrine: Reports fatigue and Denies palpitations Hematologic/Lymphatic: Hematologic/Lymphatic: Reports no additional hematologic/lymphatic complaints [facility] Past Medical History Medical History End stage renal disease HTN (hypertension) Social History Social History Alcohol intake: unknown Smoking Status: Unknown if ever smoked Use of substances other than those prescribed or required for medical reasons: Unable to respond Currently Displaying Signs/Symptoms of Drug Intoxication Withdrawal: No Advance Directives: Yes Advance Directives on File: Yes Advance Directives Date on File: 08/31/20 Do you have thoughts of harming others: None Do you have a plan to hurt others: No Plan service: No Current occupational status: disabled Meds Allergies Allergy/AdvReac Type Severity Reaction Status Date / Time No Known Allergies Allergy Verified 08/31/20 11:16 Home Medications Medication Instructions Recorded Confirmed Type B complex with C 20-folic acid 1 cap PO DAILY 08/31/20 08/31/20 History [Crispin Caps] albuterol sulfate [ProAir HFA] 2 puff INHALATION Q4-6H PRN 08/31/20 08/31/20 History amlodipine 5 mg PO DAILY 08/31/20 08/31/20 History aspirin 81 mg PO DAILY 08/31/20 08/31/20 History cholecalciferol (vitamin D3) 125 mcg PO DAILY 08/31/20 08/31/20 History [Vitamin D3] famotidine 20 mg PO BEDTIME 08/31/20 08/31/20 History ferric citrate [Auryxia] 210 mg PO TID 08/31/20 08/31/20 History fluticasone propionate [Flovent 1 puff INHALATION BID 08/31/20 08/31/20 History HFA] furosemide 80 mg PO DAILY 08/31/20 08/31/20 History loperamide 2 mg PO TID PRN 08/31/20 08/31/20 History metoprolol tartrate 25 mg PO BID 08/31/20 08/31/20 History nicotine 1 patch TRANSDERMAL Q24H 08/31/20 08/31/20 History omega-3 fatty acids [Cromwell 3] 1,000 mg PO DAILY 08/31/20 08/31/20 History paliperidone 3 mg PO QAM 08/31/20 08/31/20 History perphenazine 4 mg PO DAILY 08/31/20 08/31/20 History Physical Exam Vital Signs: Vital Signs: Last Vital Signs Temp 98.1 F 09/01/20 04:00 Pulse 76 09/01/20 11:00 Resp 18 09/01/20 11:00 BP 165/71 H 09/01/20 11:00 Pulse Ox 93 09/01/20 11:00 Body Mass Index 29.6 Const: General: cooperative, comfortable, no acute distress, alert and awake Orientation/consciousness: patient oriented x3 HENMT: Head: Yes normocephalic and Yes atraumatic Neck: Neck: Yes trachea midline, Yes supple and Yes no JVD Chest: Chest palpation & inspection: normal inspection of the chest Resp: Effort & Inspection: normal respiratory effort Auscultation: clear to auscultation bilaterally and diminished lung sounds Cardio: Palpation: normal PMI Rate: regular rate Rhythm: regular rhythm Heart sounds: S1 normal heart sound present and Other heart sounds present (S4 present) GI: Auscultation: normal bowel sounds Skin: General skin exam: no rashes or lesions noted Neuro: General: patient oriented x3 Extrem: General: Yes no clubbing, cyanosis or edema Psych: Appearance: grossly normal Results Labs and Meds Result diagrams: 09/01/20 05:35 09/01/20 05:35 Lab results: Laboratory Results - last 24 hr 08/31/20 08/31/20 08/31/20 11:36 11:48 11:48 WBC 24.6 H RBC 2.98 L Hgb 9.5 L Hct 29.4 L MCV 98.7 H MCH 31.9 MCHC 32.3 RDW 13.8 Plt Count 268 MPV 9.4 Immature Gran % (Auto) 2.1 H Neut % (Auto) 91.4 H Lymph % (Auto) 3.1 L Coke % (Auto) 3.0 Eos % (Auto) 0.1 Baso % (Auto) 0.3 Lymph # (Auto) 0.8 L Coke # (Auto) 0.7 Eos # (Auto) 0.0 Baso # (Auto) 0.1 Abs Immat Gran (auto) 0.51 H Absolute Neuts (auto) 22.5 H Absolute Nucleated RBC 0.000 Nucleated RBC % (auto) 0.0 Smear Tech's Comments VERIFIED PT 12.4 INR 1.0 APTT 31.9 D-Dimer 1345 ABG pH ABG pCO2 ABG pO2 ABG HCO3 ABG O2 Saturation ABG Base Excess VBG pH VBG pCO2 VBG pO2 VBG HCO3 VBG O2 Saturation VBG Base Excess Oxygen Given Sodium Potassium Chloride Carbon Dioxide Anion Gap BUN Creatinine Estim Creat Clear Calc Estimated GFR POC Glucose 274 H Random Glucose Lactic Acid Calcium Ferritin Total Bilirubin AST ALT Alkaline Phosphatase Troponin I High Sens C-Reactive Protein B-Natriuretic Peptide Total Protein Albumin Procalcitonin Urine Color Urine Appearance Urine pH Ur Specific [place] Urine Protein Urine Glucose (UA) Urine Ketones Urine Blood Urine Nitrite Ur Leukocyte Esterase Urine RBC Urine WBC Ur Squamous Epith Cells Urine Bacteria Stool Occult Blood Urine Opiates Screen Ur Barbiturates Screen Ur Phencyclidine Scrn Ur Amphetamines Screen U Benzodiazepines Scrn Urine Cocaine Screen U Marijuana (THC) Screen Coronavirus (PCR) Influenza Type A (PCR) Influenza Type B (PCR) RSV RNA Qual (PCR) SARS-CoV-2 IgG Ab 08/31/20 08/31/20 08/31/20 11:48 11:48 11:48 WBC RBC Hgb Hct MCV MCH MCHC RDW Plt Count MPV Immature Gran % (Auto) Neut % (Auto) Lymph % (Auto) Coke % (Auto) Eos % (Auto) Baso % (Auto) Lymph # (Auto) Coke # (Auto) Eos # (Auto) Baso # (Auto) Abs Immat Gran (auto) Absolute Neuts (auto) Absolute Nucleated RBC Nucleated RBC % (auto) Smear Tech's Comments PT INR APTT D-Dimer ABG pH ABG pCO2 ABG pO2 ABG HCO3 ABG O2 Saturation ABG Base Excess VBG pH VBG pCO2 VBG pO2 VBG HCO3 VBG O2 Saturation VBG Base Excess Oxygen Given Sodium 127 L Potassium 5.8 H Chloride 88 L Carbon Dioxide 25 Anion Gap 20 BUN 62 H Creatinine 8.11 H* Estim Creat Clear Calc TNP Estimated GFR 7 POC Glucose Random Glucose 296 H Lactic Acid Calcium 8.6 Ferritin 3217 H Total Bilirubin 0.4 AST 25 ALT 20 Alkaline Phosphatase 92 Troponin I High Sens 50.0 H C-Reactive Protein 3.67 H B-Natriuretic Peptide 1286 H Total Protein 6.4 L Albumin 3.7 Procalcitonin 0.28 Urine Color Urine Appearance Urine pH Ur Specific [place] Urine Protein Urine Glucose (UA) Urine Ketones Urine Blood Urine Nitrite Ur Leukocyte Esterase Urine RBC Urine WBC Ur Squamous Epith Cells Urine Bacteria Stool Occult Blood Urine Opiates Screen Ur Barbiturates Screen Ur Phencyclidine Scrn Ur Amphetamines Screen U Benzodiazepines Scrn Urine Cocaine Screen U Marijuana (THC) Screen Coronavirus (PCR) Influenza Type A (PCR) Influenza Type B (PCR) RSV RNA Qual (PCR) SARS-CoV-2 IgG Ab 08/31/20 08/31/20 08/31/20 11:48 11:49 12:05 WBC RBC Hgb Hct MCV MCH MCHC RDW Plt Count MPV Immature Gran % (Auto) Neut % (Auto) Lymph % (Auto) Coke % (Auto) Eos % (Auto) Baso % (Auto) Lymph # (Auto) Coke # (Auto) Eos # (Auto) Baso # (Auto) Abs Immat Gran (auto) Absolute Neuts (auto) Absolute Nucleated RBC Nucleated RBC % (auto) Smear Tech's Comments PT INR APTT D-Dimer ABG pH ABG pCO2 ABG pO2 ABG HCO3 ABG O2 Saturation ABG Base Excess VBG pH VBG pCO2 VBG pO2 VBG HCO3 VBG O2 Saturation VBG Base Excess Oxygen Given Sodium Potassium Chloride Carbon Dioxide Anion Gap BUN Creatinine Estim Creat Clear Calc Estimated GFR POC Glucose Random Glucose Lactic Acid 1.2 Calcium Ferritin Total Bilirubin AST ALT Alkaline Phosphatase Troponin I High Sens C-Reactive Protein B-Natriuretic Peptide Total Protein Albumin Procalcitonin Urine Color RED Urine Appearance CLOUDY Urine pH 7.5 Ur Specific [place] 1.015 Urine Protein 2+ H Urine Glucose (UA) 100 H Urine Ketones NEG Urine Blood 3+ H Urine Nitrite NEG Ur Leukocyte Esterase TRACE H Urine RBC 76-150 H Urine WBC 1-4 Ur Squamous Epith Cells TRACE Urine Bacteria NONE Stool Occult Blood Urine Opiates Screen Ur Barbiturates Screen Ur Phencyclidine Scrn Ur Amphetamines Screen U Benzodiazepines Scrn Urine Cocaine Screen U Marijuana (THC) Screen Coronavirus (PCR) Influenza Type A (PCR) Influenza Type B (PCR) RSV RNA Qual (PCR) SARS-CoV-2 IgG Ab Positive 08/31/20 08/31/20 08/31/20 12:05 13:15 13:40 WBC RBC Hgb Hct MCV MCH MCHC RDW Plt Count MPV Immature Gran % (Auto) Neut % (Auto) Lymph % (Auto) Coke % (Auto) Eos % (Auto) Baso % (Auto) Lymph # (Auto) [place] # (Auto) Eos # (Auto) Baso # (Auto) Abs Immat Gran (auto) Absolute Neuts (auto) Absolute Nucleated RBC Nucleated RBC % (auto) Smear Tech's Comments PT INR APTT D-Dimer ABG pH 7.14 L* ABG pCO2 75 H* ABG pO2 88 ABG HCO3 25 ABG O2 Saturation 94.4 ABG Base Excess -4.7 VBG pH VBG pCO2 VBG pO2 VBG HCO3 VBG O2 Saturation VBG Base Excess Oxygen Given 100% Sodium Potassium Chloride Carbon Dioxide Anion Gap BUN Creatinine Estim Creat Clear Calc Estimated GFR POC Glucose Random Glucose Lactic Acid Calcium Ferritin Total Bilirubin AST ALT Alkaline Phosphatase Troponin I High Sens C-Reactive Protein B-Natriuretic Peptide Total Protein Albumin Procalcitonin Urine Color Urine Appearance Urine pH Ur Specific [place] Urine Protein Urine Glucose (UA) Urine Ketones Urine Blood Urine Nitrite Ur Leukocyte Esterase Urine RBC Urine WBC Ur Squamous Epith Cells Urine Bacteria Stool Occult Blood NEG Urine Opiates Screen Not Detected Ur Barbiturates Screen Not Detected Ur Phencyclidine Scrn Not Detected Ur Amphetamines Screen Not Detected U Benzodiazepines Scrn Not Detected Urine Cocaine Screen Not Detected U Marijuana (THC) Screen Not Detected Coronavirus (PCR) Influenza Type A (PCR) Influenza Type B (PCR) RSV RNA Qual (PCR) SARS-CoV-2 IgG Ab 08/31/20 08/31/20 09/01/20 14:45 17:15 01:08 WBC RBC Hgb Hct MCV MCH MCHC RDW Plt Count MPV Immature Gran % (Auto) Neut % (Auto) Lymph % (Auto) Coke % (Auto) Eos % (Auto) Baso % (Auto) Lymph # (Auto) [place]ke # (Auto) Eos # (Auto) Baso # (Auto) Abs Immat Gran (auto) Absolute Neuts (auto) Absolute Nucleated RBC Nucleated RBC % (auto) Smear Tech's Comments PT INR APTT D-Dimer ABG pH ABG pCO2 ABG pO2 ABG HCO3 ABG O2 Saturation ABG Base Excess VBG pH VBG pCO2 VBG pO2 VBG HCO3 VBG O2 Saturation VBG Base Excess Oxygen Given Sodium Potassium Chloride Carbon Dioxide Anion Gap BUN Creatinine Estim Creat Clear Calc Estimated GFR POC Glucose 122 H 64 Random Glucose Lactic Acid Calcium Ferritin Total Bilirubin AST ALT Alkaline Phosphatase Troponin I High Sens C-Reactive Protein B-Natriuretic Peptide Total Protein Albumin Procalcitonin Urine Color Urine Appearance Urine pH Ur Specific [place] Urine Protein Urine Glucose (UA) Urine Ketones Urine Blood Urine Nitrite Ur Leukocyte Esterase Urine RBC Urine WBC Ur Squamous Epith Cells Urine Bacteria Stool Occult Blood Urine Opiates Screen Ur Barbiturates Screen Ur Phencyclidine Scrn Ur Amphetamines Screen U Benzodiazepines Scrn Urine Cocaine Screen U Marijuana (THC) Screen Coronavirus (PCR) POSITIVE A Influenza Type A (PCR) NEGATIVE Influenza Type B (PCR) NEGATIVE RSV RNA Qual (PCR) NEGATIVE SARS-CoV-2 IgG Ab 09/01/20 09/01/20 09/01/20 05:35 05:35 05:35 WBC 8.4 RBC 2.67 L Hgb 8.1 L Hct 26.1 L MCV 97.8 MCH 30.3 MCHC 31.0 RDW 14.0 Plt Count 224 MPV 9.9 Immature Gran % (Auto) 0.8 H Neut % (Auto) 80.7 H Lymph % (Auto) 9.0 L Coke % (Auto) 8.6 Eos % (Auto) 0.5 Baso % (Auto) 0.4 Lymph # (Auto) 0.8 L [place]ke # (Auto) 0.7 Eos # (Auto) 0.0 Baso # (Auto) 0.0 Abs Immat Gran (auto) 0.07 H Absolute Neuts (auto) 6.8 Absolute Nucleated RBC 0.000 Nucleated RBC % (auto) 0.0 Smear Tech's Comments PT INR APTT D-Dimer 1271 ABG pH ABG pCO2 ABG pO2 ABG HCO3 ABG O2 Saturation ABG Base Excess VBG pH VBG pCO2 VBG pO2 VBG HCO3 VBG O2 Saturation VBG Base Excess Oxygen Given Sodium 135 Potassium 4.9 Chloride 95 L Carbon Dioxide 30 H Anion Gap 15 BUN 30 H D Creatinine 5.07 H* Estim Creat Clear Calc 16.5 Estimated GFR 12 POC Glucose Random Glucose 105 D Lactic Acid Calcium 8.4 Ferritin 2500 H Total Bilirubin AST ALT Alkaline Phosphatase Troponin I High Sens C-Reactive Protein 5.53 H B-Natriuretic Peptide Total Protein Albumin Procalcitonin Urine Color Urine Appearance Urine pH Ur Specific [place] Urine Protein Urine Glucose (UA) Urine Ketones Urine Blood Urine Nitrite Ur Leukocyte Esterase Urine RBC Urine WBC Ur Squamous Epith Cells Urine Bacteria Stool Occult Blood Urine Opiates Screen Ur Barbiturates Screen Ur Phencyclidine Scrn Ur Amphetamines Screen U Benzodiazepines Scrn Urine Cocaine Screen U Marijuana (THC) Screen Coronavirus (PCR) Influenza Type A (PCR) Influenza Type B (PCR) RSV RNA Qual (PCR) SARS-CoV-2 IgG Ab 09/01/20 09/01/20 09/01/20 05:35 05:35 05:35 WBC RBC Hgb Hct MCV MCH MCHC RDW Plt Count MPV Immature Gran % (Auto) Neut % (Auto) Lymph % (Auto) [place]ke % (Auto) Eos % (Auto) Baso % (Auto) Lymph # (Auto) [place]ke # (Auto) Eos # (Auto) Baso # (Auto) Abs Immat Gran (auto) Absolute Neuts (auto) Absolute Nucleated RBC Nucleated RBC % (auto) Smear Tech's Comments PT INR APTT D-Dimer ABG pH ABG pCO2 ABG pO2 ABG HCO3 ABG O2 Saturation ABG Base Excess VBG pH 7.48 H VBG pCO2 44 VBG pO2 50 VBG HCO3 32 VBG O2 Saturation 86.5 VBG Base Excess 7.7 Oxygen Given Sodium Potassium Chloride Carbon Dioxide Anion Gap BUN Creatinine Estim Creat Clear Calc Estimated GFR POC Glucose Random Glucose Lactic Acid Calcium Ferritin Total Bilirubin AST ALT Alkaline Phosphatase Troponin I High Sens 299.7 H D C-Reactive Protein B-Natriuretic Peptide 1348 H Total Protein Albumin Procalcitonin 8.61 Urine Color Urine Appearance Urine pH Ur Specific [place] Urine Protein Urine Glucose (UA) Urine Ketones Urine Blood Urine Nitrite Ur Leukocyte Esterase Urine RBC Urine WBC Ur Squamous Epith Cells Urine Bacteria Stool Occult Blood Urine Opiates Screen Ur Barbiturates Screen Ur Phencyclidine Scrn Ur Amphetamines Screen U Benzodiazepines Scrn Urine Cocaine Screen U Marijuana (THC) Screen Coronavirus (PCR) Influenza Type A (PCR) Influenza Type B (PCR) RSV RNA Qual (PCR) SARS-CoV-2 IgG Ab 09/01/20 06:35 WBC RBC Hgb Hct MCV MCH MCHC RDW Plt Count MPV Immature Gran % (Auto) Neut % (Auto) Lymph % (Auto) [place]ke % (Auto) Eos % (Auto) Baso % (Auto) Lymph # (Auto) [place] # (Auto) Eos # (Auto) Baso # (Auto) Abs Immat Gran (auto) Absolute Neuts (auto) Absolute Nucleated RBC Nucleated RBC % (auto) Smear Tech's Comments PT INR APTT D-Dimer ABG pH ABG pCO2 ABG pO2 ABG HCO3 ABG O2 Saturation ABG Base Excess VBG pH VBG pCO2 VBG pO2 VBG HCO3 VBG O2 Saturation VBG Base Excess Oxygen Given Sodium Potassium Chloride Carbon Dioxide Anion Gap BUN Creatinine Estim Creat Clear Calc Estimated GFR POC Glucose 87 Random Glucose Lactic Acid Calcium Ferritin Total Bilirubin AST ALT Alkaline Phosphatase Troponin I High Sens C-Reactive Protein B-Natriuretic Peptide Total Protein Albumin Procalcitonin Urine Color Urine Appearance Urine pH Ur Specific [place] Urine Protein Urine Glucose (UA) Urine Ketones Urine Blood Urine Nitrite Ur Leukocyte Esterase Urine RBC Urine WBC Ur Squamous Epith Cells Urine Bacteria Stool Occult Blood Urine Opiates Screen Ur Barbiturates Screen Ur Phencyclidine Scrn Ur Amphetamines Screen U Benzodiazepines Scrn Urine Cocaine Screen U Marijuana (THC) Screen Coronavirus (PCR) Influenza Type A (PCR) Influenza Type B (PCR) RSV RNA Qual (PCR) SARS-CoV-2 IgG Ab EKG on admission shows sinus tachycardia with nonspecific ST-T changes Imaging Radiologist's impression: Impressions Chest X-Ray 08/31/20 11:16 IMPRESSION: Satisfactory position of support tubes. Bilateral airspace disease suggestive of pneumonia. Head CT 08/31/20 11:18 IMPRESSION: Severe emphysema. Bilateral pneumonia, greatest in the right upper and left lower lobes. Small bilateral pleural effusions. Spectral position of endotracheal tube. Nasogastric tube projects over proximal stomach, tip not seen. EXAMINATION: Head CT without contrast CLINICAL INFORMATION: Covid infection. Seizure. Rule out stroke or bleed COMPARISON: None. TECHNIQUE: Axial images through the brain without contrast. Sagittal and coronal reconstructions on the technologist workstation were performed. Patient dose 7 7 9 mg/cm. This CT examination was performed using dose optimization techniques as appropriate, variously including the following: *Automated exposure control *Adjustment of mA and/or kV according to patient size (this includes techniques or standardized protocols for targeted exams where dose is matched to indication/reason for exam; i.e. extremities or head) *Use of iterative reconstruction technique FINDINGS: There is no evidence of an extra-axial collection. There is no evidence of intra-axial or extra-axial hemorrhage. The ventricles and extra-axial CSF spaces are prominent suggestive of generalized atrophy. Wilson-white matter differentiation is normal. No mass, mass effect or infarct is seen. No skull fracture is seen. There is bilateral frontal ethmoid and right maxillary sinus disease. IMPRESSION: No acute findings. Mild generalized atrophy and sinus disease. Abdomen/Pelvis CT 08/31/20 12:10 IMPRESSION: Gallstones. Small amount of ascites around the liver and pericholecystic fluid. There is clinical concern of cholecystitis, ultrasound or HIDA scan be recommended. Severe diverticular disease of the distal colon. It is difficult to exclude mild sigmoid diverticulitis. Innumerable bilateral renal cysts. Stable low-attenuation right adrenal lesion probably representing a benign adenoma. Large umbilical hernia containing fat. Chest CT 08/31/20 12:10 IMPRESSION: Severe emphysema. Bilateral pneumonia, greatest in the right upper and left lower lobes. Small bilateral pleural effusions. Spectral position of endotracheal tube. Nasogastric tube projects over proximal stomach, tip not seen. EXAMINATION: Head CT without contrast CLINICAL INFORMATION: Covid infection. Seizure. Rule out stroke or bleed COMPARISON: None. TECHNIQUE: Axial images through the brain without contrast. Sagittal and coronal reconstructions on the technologist workstation were performed. Patient dose 7 7 9 mg/cm. This CT examination was performed using dose optimization techniques as appropriate, variously including the following: *Automated exposure control *Adjustment of mA and/or kV according to patient size (this includes techniques or standardized protocols for targeted exams where dose is matched to indication/reason for exam; i.e. extremities or head) *Use of iterative reconstruction technique FINDINGS: There is no evidence of an extra-axial collection. There is no evidence of intra-axial or extra-axial hemorrhage. The ventricles and extra-axial CSF spaces are prominent suggestive of generalized atrophy. Wilson-white matter differentiation is normal. No mass, mass effect or infarct is seen. No skull fracture is seen. There is bilateral frontal ethmoid and right maxillary sinus disease. IMPRESSION: No acute findings. Mild generalized atrophy and sinus disease. Chest X-Ray 09/01/20 07:03 IMPRESSION: The patient has been extubated. The bilateral multifocal patchy airspace opacities are not substantially changed. No evidence of new airspace opacification or increasing pleural effusions. Assessment and Plan (1) Respiratory failure with hypoxia: Status: Acute Hypoxic respiratory failure, appears to be multifactorial. He has underlying COPD from prior smoking with suggestion of emphysema as well as currently with COVID with infiltrates suggestive of COVID pneumonia topped with fluid overload related to missed dialysis leading to flash pulmonary edema in setting of hypertensive crisis. He was dialyzed yesterday and with better controlled blood pressure his hypoxic respiratory failure improved quickly again suggesting that this might be clinically a presence of flash pulmonary edema on top of his underlying pulmonary condition. Clinically doing well. Continue supportive care. Consider pulmonary consultation for his underlying pulmonary issues as well. (2) Congestive heart failure: Status: Acute Clinically with elevated BNP acute presentation as well as response to dialysis at blood pressure control is highly suggestive of flash hypertensive pulmonary edema this improved significantly with blood pressure control and dialysis. Clinically improved significantly. Continue supportive care. Continue aggressive control of blood pressure. More importantly we discussed about salt and fluid management he says he follows the guidelines closely. He should also have ways of as an outpatient monitoring his blood pressure on non dialysis days to appropriately help with blood pressure control. Optimize his hypertensive management. He is hypertensive today, add Norvasc to his regimen. Echocardiogram has been requested. Management of fluid status is will be mostly through dialysis. Given the acute nature of heart failure and flash pulmonary edema likely underlying ischemia needs to be evaluated. This can be pursued as an outpatient. (3) End stage renal disease: Status: Acute End-stage renal disease, currently on hemodialysis being monitored by nephrology team. (4) Hypertensive crisis: Status: Acute Hypertensive crisis has resolved to but persistent hypertension. Add antihypertensive regimen, would start with calcium channel mary such as Norvasc. Subsequently can add hydralazine to his regimen as well. Will sign of the case at current time. Thank you for allowing us to partake in his care
--- NOTE | 2020-09-01 11:32 | P.PNCC_ITS ---
Subjective Subjective Date of Service: 09/01/20 Interval History: Mr. Lara was admitted to the ICU yesterday afternoon after being intubated in the ED bec of hypoxemia and AMS. The patient is a 60-year-old male with ESRF, on HD via fistula. Dr. Leger reported to me that his ESRF is 2? IgA nephropathy on bx, and that he?s been on HD for about 1 year. He?s on schedule and was scheduled for HD at 3:30pm yesterday. He also has a history of heavy cigarette abuse, COPD, bronc hitis w chronic cough, Crohn?s dz, and schizoaffective disorder. Dr. Leger also reported to me that the patient tested positive for COVID-19 on August 18 (14 days ago). The patient has lived with a roommate named Abdoulaye (telephone numbers [phone], or [phone]) for the last 8 years. Abdoulaye is also the patient?s HCP. I have no information about whether the patient has any next of kin. Abdoulaye tells me that the patient was hospitalized with pneumonia this past October for 3 days; he does not know whether that was COVID or not. The patient wears oxygen 24 hours a day: 2 L at rest, and 4 L with exertion. The patient rarely leaves the house. The patient has a nurse who comes to see him every day to give him his medication. The patient has been in his usual state of health, not requiring more oxygen than usual, not more dyspnea than usual, and if anything, coughing less than he usually does. No recent fever. According to Abdoulaye, the patient has been largely asymptomatic from a COVID standpoint since he tested positive. He never required hospitalization nor even an increase in his usual FiO2. The patient was seen at the house by his usual nurse yesterday morning. Nothing was amiss. Abdoulaye saw the patient that morning and he looked fine. Then at about 10:30am, the patient was noted to be sitting and unresponsive to questioning. His breathing did not look right. Abdoulaye called EMS. Accord to EMS records, they arrived to the house at 10:20am. Initial VS at the house HR 58, BP 79/43, Sat 56% (?FiO2), RR10. Unresponsive, only opened eyes to painful stim. The patient was given 2mg Narcan. Next BP was 222/99, Sat 98% on NRBFM. EKG at the scene unremarkable except for poss Qw in V1. home health cna worked on him for about half an hour at the house and then left to go to the hospital, arrived in the ED at 11 00. In ED the patient's mental status was altered, resp agonal, and he was not responding to painful stimuli. He was diaphoretic. Sat was 71% on non-rebrea ther face mask. Initial heart rate was 124, blood pressure was 241/90. The patient was immediately intubated. Labs in ED notable for white count 24, Sodium 127, BUN/creat 62/8.1, potassium is 5.8, bicarb is 25, glucose 296, normal LFTs, albumin 3.7, high sensitivity troponin 50, BNP 1286, lactic acid 1.2, DDimer 1345, ferritin 3217, CRP 3.6, procalcitonin 0.28 Chest x-ray showed bilat infiltrates, IMO most suggestive of acute pulmonary edema, but could easily have been bilateral COVID pneumonia. Chest CT showed severe bullous emphysema with marked increase in interstitial markings with small bilat pleural eff, bilat lower lung zone interstitial infiltrates, and small areas of consolidation bilat in the posterior lower lung zones, with small area of air bronchograms in LLL. Read by radiologist as pneumonia, but other than the area of air bronchograms, it looked more like pulmonary edema to me. Abd CT showed gallstones w small amount of ascites around the liver and pericholecystic fluid, w severe diverticular disease of the distal colon. Also innumerable bilateral renal cysts. Large umbilical hernia containing fat. The patient was admitted to ICU, where very rapidly he was tapered down to 40%, then 30% FiO2. He was dialyzed in short order, then extubated with no problem r ight after dialysis ended. COVID swab done after arrival to the ICU was positive. SARS-CoV-2 IgG was also positive. Are leading diagnosis was hypertensive crisis causing acute pulmonary edema and respiratory failure. However, because of the elevated white count and the bilateral infiltrates, we continued him on ceftriaxone and Zithromax. Overnight, he?s been breathing easy, Sat was high 90?s on 6L NC. This morning, he?s OOB in the chair. Looks thoroughly nontoxic and in no distress. Fully alert and mostly appropriate, altho his speech is halting and he appears mentally ?slow?. (I?m assuming that that?s his baseline. Dr. Leger confirmed that.) I asked him what happened yesterday, and he told me he does not know. Last thing he remembers is waking up in the ICU last night. See vital signs below. The patient has been afebrile throughout. Respiratory rate is 18-25, with 1+ accessory muscle use. He tells me that his breathing is currently normal for him. Sat is 92-95% on 2 L oxygen by nasal cannula; was 89% on room air. He has a wet cough; he swallows whatever he brings up; he says that that cough is also normal for him. No JVD with the head of the bed at about 45 deg myrna. Auscultation of the chest shows light tubular breath sounds throughout, with diminished breath sounds in the right upper lobe. Abdomen is benign. He has no peripheral edema. Neuro exam is grossly intact. LABORATORY DATA: As below. Notably, white count down to 8.4, venous pCO2 this morning on nasal cannula oxygen was 44, BUN and creatinine this morning are down to 30/5.0, potassium is down to 4.9, bicarb is 30, high sensitivity troponin is up to 299 this morning BNP is up to 1348; ferritin, CRP, and procalcitonin are also up this morning. Urine tox screen from yesterday was negative. EKG this morning shows no ischemic changes. Has no Q-waves. IMPRESSION: 1. AMS of unclear etiology. No evidence of stroke on head CT or on phys exam today. DDx includes seizure or toxic/metabolic encephalopathy, but nothing?s shown up on tox screen. 2. Severe HTN on arrival to the ED yesterday. No surprise in a HD patient. Hypertensive crisis with acute pulmon edema is my working dx for why he presented with bilat pulmon infiltrates. I discussed his situation with Dr. Mccoy, and he?s seen the patient. 3. Bilateral pulmonary infiltrates. Given the history above, it is a virtual certainty that the infiltrate seen on his chest x-ray and CT today are not secondary to COVID. If so, then the other dx?s in the differential would be acute pulmonary edema or pneumonia. Again, given the history above, the pulmonary infiltrates are unlikely infectious (e.g. CAP), given the suddenness of onset. Therefore, if the infiltrates are pneumonia, it would be aspiration pneumonia, which would be c/w the distribution of the lower lobe infiltrates. And the rapid resolution of hypoxemia would be consistent with either pulmonary edema or aspiration pneumonitis. Echo pending this morning. 4. Acute respiratory failure. 2 to above. Resolved. It?s possible that his Sat is now back to baseline. 5. ESRF with acute azotemia and hyperkalemia. Discussed w Dr. Leger. No dialysis is planned for today. 6. COVID. Tested positive 15 days ago. It?s therefore a virtual certainty that he?s no longer infectious. Still should be isolated in the hospital though. 7. ID. No evidence of sepsis. Given how thoroughly non toxic he looks, the fact that he?s afebrile, and his WBC has normalized, I?ll d/c his Abx. (Ignoring the PCT in this patient with renal failure.) Given his wet cough, I?ll put him on Zithromax 250 mg po daily x 5 days, then 250 mg po thrice weekly. Hypertensive crisis with acute pulmonary edema in an end-stage renal failure patient is my working dx at this point. Time: [id number]. Physical Exam Vital Signs: Vital Signs: Last Vital Signs Temp 98.1 F 09/01/20 04:00 Pulse 76 09/01/20 11:00 Resp 18 09/01/20 11:00 BP 165/71 H 09/01/20 11:00 Pulse Ox 93 09/01/20 11:00 Body Mass Index 29.6 Objective Data Labs CBC & Chem 7: 09/01/20 05:35 09/01/20 05:35 Labs: Laboratory Results - last 24 hr 08/31/20 08/31/20 08/31/20 11:36 11:48 11:48 WBC 24.6 H RBC 2.98 L Hgb 9.5 L Hct 29.4 L MCV 98.7 H MCH 31.9 MCHC 32.3 RDW 13.8 Plt Count 268 MPV 9.4 Immature Gran % (Auto) 2.1 H Neut % (Auto) 91.4 H Lymph % (Auto) 3.1 L Loving % (Auto) 3.0 Eos % (Auto) 0.1 Baso % (Auto) 0.3 Lymph # (Auto) 0.8 L Loving # (Auto) 0.7 Eos # (Auto) 0.0 Baso # (Auto) 0.1 Abs Immat Gran (auto) 0.51 H Absolute Neuts (auto) 22.5 H Absolute Nucleated RBC 0.000 Nucleated RBC % (auto) 0.0 Smear Tech's Comments VERIFIED PT 12.4 INR 1.0 APTT 31.9 D-Dimer 1345 ABG pH ABG pCO2 ABG pO2 ABG HCO3 ABG O2 Saturation ABG Base Excess VBG pH VBG pCO2 VBG pO2 VBG HCO3 VBG O2 Saturation VBG Base Excess Oxygen Given Sodium Potassium Chloride Carbon Dioxide Anion Gap BUN Creatinine Estim Creat Clear Calc Estimated GFR POC Glucose 274 H Random Glucose Lactic Acid Calcium Ferritin Total Bilirubin AST ALT Alkaline Phosphatase Troponin I High Sens C-Reactive Protein B-Natriuretic Peptide Total Protein Albumin Procalcitonin Urine Color Urine Appearance Urine pH Ur Specific [place] Urine Protein Urine Glucose (UA) Urine Ketones Urine Blood Urine Nitrite Ur Leukocyte Esterase Urine RBC Urine WBC Ur Squamous Epith Cells Urine Bacteria Stool Occult Blood Urine Opiates Screen Ur Barbiturates Screen Ur Phencyclidine Scrn Ur Amphetamines Screen U Benzodiazepines Scrn Urine Cocaine Screen U Marijuana (THC) Screen Coronavirus (PCR) Influenza Type A (PCR) Influenza Type B (PCR) RSV RNA Qual (PCR) SARS-CoV-2 IgG Ab 08/31/20 08/31/20 08/31/20 11:48 11:48 11:48 WBC RBC Hgb Hct MCV MCH MCHC RDW Plt Count MPV Immature Gran % (Auto) Neut % (Auto) Lymph % (Auto) Loving % (Auto) Eos % (Auto) Baso % (Auto) Lymph # (Auto) Loving # (Auto) Eos # (Auto) Baso # (Auto) Abs Immat Gran (auto) Absolute Neuts (auto) Absolute Nucleated RBC Nucleated RBC % (auto) Smear Tech's Comments PT INR APTT D-Dimer ABG pH ABG pCO2 ABG pO2 ABG HCO3 ABG O2 Saturation ABG Base Excess VBG pH VBG pCO2 VBG pO2 VBG HCO3 VBG O2 Saturation VBG Base Excess Oxygen Given Sodium 127 L Potassium 5.8 H Chloride 88 L Carbon Dioxide 25 Anion Gap 20 BUN 62 H Creatinine 8.11 H* Estim Creat Clear Calc TNP Estimated GFR 7 POC Glucose Random Glucose 296 H Lactic Acid Calcium 8.6 Ferritin 3217 H Total Bilirubin 0.4 AST 25 ALT 20 Alkaline Phosphatase 92 Troponin I High Sens 50.0 H C-Reactive Protein 3.67 H B-Natriuretic Peptide 1286 H Total Protein 6.4 L Albumin 3.7 Procalcitonin 0.28 Urine Color Urine Appearance Urine pH Ur Specific [place] Urine Protein Urine Glucose (UA) Urine Ketones Urine Blood Urine Nitrite Ur Leukocyte Esterase Urine RBC Urine WBC Ur Squamous Epith Cells Urine Bacteria Stool Occult Blood Urine Opiates Screen Ur Barbiturates Screen Ur Phencyclidine Scrn Ur Amphetamines Screen U Benzodiazepines Scrn Urine Cocaine Screen U Marijuana (THC) Screen Coronavirus (PCR) Influenza Type A (PCR) Influenza Type B (PCR) RSV RNA Qual (PCR) SARS-CoV-2 IgG Ab 08/31/20 08/31/20 08/31/20 11:48 11:49 12:05 WBC RBC Hgb Hct MCV MCH MCHC RDW Plt Count MPV Immature Gran % (Auto) Neut % (Auto) Lymph % (Auto) Loving % (Auto) Eos % (Auto) Baso % (Auto) Lymph # (Auto) Loving # (Auto) Eos # (Auto) Baso # (Auto) Abs Immat Gran (auto) Absolute Neuts (auto) Absolute Nucleated RBC Nucleated RBC % (auto) Smear Tech's Comments PT INR APTT D-Dimer ABG pH ABG pCO2 ABG pO2 ABG HCO3 ABG O2 Saturation ABG Base Excess VBG pH VBG pCO2 VBG pO2 VBG HCO3 VBG O2 Saturation VBG Base Excess Oxygen Given Sodium Potassium Chloride Carbon Dioxide Anion Gap BUN Creatinine Estim Creat Clear Calc Estimated GFR POC Glucose Random Glucose Lactic Acid 1.2 Calcium Ferritin Total Bilirubin AST ALT Alkaline Phosphatase Troponin I High Sens C-Reactive Protein B-Natriuretic Peptide Total Protein Albumin Procalcitonin Urine Color RED Urine Appearance CLOUDY Urine pH 7.5 Ur Specific [place] 1.015 Urine Protein 2+ H Urine Glucose (UA) 100 H Urine Ketones NEG Urine Blood 3+ H Urine Nitrite NEG Ur Leukocyte Esterase TRACE H Urine RBC 76-150 H Urine WBC 1-4 Ur Squamous Epith Cells TRACE Urine Bacteria NONE Stool Occult Blood Urine Opiates Screen Ur Barbiturates Screen Ur Phencyclidine Scrn Ur Amphetamines Screen U Benzodiazepines Scrn Urine Cocaine Screen U Marijuana (THC) Screen Coronavirus (PCR) Influenza Type A (PCR) Influenza Type B (PCR) RSV RNA Qual (PCR) SARS-CoV-2 IgG Ab Positive 08/31/20 08/31/20 08/31/20 12:05 13:15 13:40 WBC RBC Hgb Hct MCV MCH MCHC RDW Plt Count MPV Immature Gran % (Auto) Neut % (Auto) Lymph % (Auto) Loving % (Auto) Eos % (Auto) Baso % (Auto) Lymph # (Auto) Loving # (Auto) Eos # (Auto) Baso # (Auto) Abs Immat Gran (auto) Absolute Neuts (auto) Absolute Nucleated RBC Nucleated RBC % (auto) Smear Tech's Comments PT INR APTT D-Dimer ABG pH 7.14 L* ABG pCO2 75 H* ABG pO2 88 ABG HCO3 25 ABG O2 Saturation 94.4 ABG Base Excess -4.7 VBG pH VBG pCO2 VBG pO2 VBG HCO3 VBG O2 Saturation VBG Base Excess Oxygen Given 100% Sodium Potassium Chloride Carbon Dioxide Anion Gap BUN Creatinine Estim Creat Clear Calc Estimated GFR POC Glucose Random Glucose Lactic Acid Calcium Ferritin Total Bilirubin AST ALT Alkaline Phosphatase Troponin I High Sens C-Reactive Protein B-Natriuretic Peptide Total Protein Albumin Procalcitonin Urine Color Urine Appearance Urine pH Ur Specific [place] Urine Protein Urine Glucose (UA) Urine Ketones Urine Blood Urine Nitrite Ur Leukocyte Esterase Urine RBC Urine WBC Ur Squamous Epith Cells Urine Bacteria Stool Occult Blood NEG Urine Opiates Screen Not Detected Ur Barbiturates Screen Not Detected Ur Phencyclidine Scrn Not Detected Ur Amphetamines Screen Not Detected U Benzodiazepines Scrn Not Detected Urine Cocaine Screen Not Detected U Marijuana (THC) Screen Not Detected Coronavirus (PCR) Influenza Type A (PCR) Influenza Type B (PCR) RSV RNA Qual (PCR) SARS-CoV-2 IgG Ab 08/31/20 08/31/20 09/01/20 14:45 17:15 01:08 WBC RBC Hgb Hct MCV MCH MCHC RDW Plt Count MPV Immature Gran % (Auto) Neut % (Auto) Lymph % (Auto) Loving % (Auto) Eos % (Auto) Baso % (Auto) Lymph # (Auto) Loving # (Auto) Eos # (Auto) Baso # (Auto) Abs Immat Gran (auto) Absolute Neuts (auto) Absolute Nucleated RBC Nucleated RBC % (auto) Smear Tech's Comments PT INR APTT D-Dimer ABG pH ABG pCO2 ABG pO2 ABG HCO3 ABG O2 Saturation ABG Base Excess VBG pH VBG pCO2 VBG pO2 VBG HCO3 VBG O2 Saturation VBG Base Excess Oxygen Given Sodium Potassium Chloride Carbon Dioxide Anion Gap BUN Creatinine Estim Creat Clear Calc Estimated GFR POC Glucose 122 H 64 Random Glucose Lactic Acid Calcium Ferritin Total Bilirubin AST ALT Alkaline Phosphatase Troponin I High Sens C-Reactive Protein B-Natriuretic Peptide Total Protein Albumin Procalcitonin Urine Color Urine Appearance Urine pH Ur Specific [place] Urine Protein Urine Glucose (UA) Urine Ketones Urine Blood Urine Nitrite Ur Leukocyte Esterase Urine RBC Urine WBC Ur Squamous Epith Cells Urine Bacteria Stool Occult Blood Urine Opiates Screen Ur Barbiturates Screen Ur Phencyclidine Scrn Ur Amphetamines Screen U Benzodiazepines Scrn Urine Cocaine Screen U Marijuana (THC) Screen Coronavirus (PCR) POSITIVE A Influenza Type A (PCR) NEGATIVE Influenza Type B (PCR) NEGATIVE RSV RNA Qual (PCR) NEGATIVE SARS-CoV-2 IgG Ab 09/01/20 09/01/20 09/01/20 05:35 05:35 05:35 WBC 8.4 RBC 2.67 L Hgb 8.1 L Hct 26.1 L MCV 97.8 MCH 30.3 MCHC 31.0 RDW 14.0 Plt Count 224 MPV 9.9 Immature Gran % (Auto) 0.8 H Neut % (Auto) 80.7 H Lymph % (Auto) 9.0 L Loving % (Auto) 8.6 Eos % (Auto) 0.5 Baso % (Auto) 0.4 Lymph # (Auto) 0.8 L [place] # (Auto) 0.7 Eos # (Auto) 0.0 Baso # (Auto) 0.0 Abs Immat Gran (auto) 0.07 H Absolute Neuts (auto) 6.8 Absolute Nucleated RBC 0.000 Nucleated RBC % (auto) 0.0 Smear Tech's Comments PT INR APTT D-Dimer 1271 ABG pH ABG pCO2 ABG pO2 ABG HCO3 ABG O2 Saturation ABG Base Excess VBG pH VBG pCO2 VBG pO2 VBG HCO3 VBG O2 Saturation VBG Base Excess Oxygen Given Sodium 135 Potassium 4.9 Chloride 95 L Carbon Dioxide 30 H Anion Gap 15 BUN 30 H D Creatinine 5.07 H* Estim Creat Clear Calc 16.5 Estimated GFR 12 POC Glucose Random Glucose 105 D Lactic Acid Calcium 8.4 Ferritin 2500 H Total Bilirubin AST ALT Alkaline Phosphatase Troponin I High Sens C-Reactive Protein 5.53 H B-Natriuretic Peptide Total Protein Albumin Procalcitonin Urine Color Urine Appearance Urine pH Ur Specific [place] Urine Protein Urine Glucose (UA) Urine Ketones Urine Blood Urine Nitrite Ur Leukocyte Esterase Urine RBC Urine WBC Ur Squamous Epith Cells Urine Bacteria Stool Occult Blood Urine Opiates Screen Ur Barbiturates Screen Ur Phencyclidine Scrn Ur Amphetamines Screen U Benzodiazepines Scrn Urine Cocaine Screen U Marijuana (THC) Screen Coronavirus (PCR) Influenza Type A (PCR) Influenza Type B (PCR) RSV RNA Qual (PCR) SARS-CoV-2 IgG Ab 09/01/20 09/01/20 09/01/20 05:35 05:35 05:35 WBC RBC Hgb Hct MCV MCH MCHC RDW Plt Count MPV Immature Gran % (Auto) Neut % (Auto) Lymph % (Auto) Loving % (Auto) Eos % (Auto) Baso % (Auto) Lymph # (Auto) Loving # (Auto) Eos # (Auto) Baso # (Auto) Abs Immat Gran (auto) Absolute Neuts (auto) Absolute Nucleated RBC Nucleated RBC % (auto) Smear Tech's Comments PT INR APTT D-Dimer ABG pH ABG pCO2 ABG pO2 ABG HCO3 ABG O2 Saturation ABG Base Excess VBG pH 7.48 H VBG pCO2 44 VBG pO2 50 VBG HCO3 32 VBG O2 Saturation 86.5 VBG Base Excess 7.7 Oxygen Given Sodium Potassium Chloride Carbon Dioxide Anion Gap BUN Creatinine Estim Creat Clear Calc Estimated GFR POC Glucose Random Glucose Lactic Acid Calcium Ferritin Total Bilirubin AST ALT Alkaline Phosphatase Troponin I High Sens 299.7 H D C-Reactive Protein B-Natriuretic Peptide 1348 H Total Protein Albumin Procalcitonin 8.61 Urine Color Urine Appearance Urine pH Ur Specific [place] Urine Protein Urine Glucose (UA) Urine Ketones Urine Blood Urine Nitrite Ur Leukocyte Esterase Urine RBC Urine WBC Ur Squamous Epith Cells Urine Bacteria Stool Occult Blood Urine Opiates Screen Ur Barbiturates Screen Ur Phencyclidine Scrn Ur Amphetamines Screen U Benzodiazepines Scrn Urine Cocaine Screen U Marijuana (THC) Screen Coronavirus (PCR) Influenza Type A (PCR) Influenza Type B (PCR) RSV RNA Qual (PCR) SARS-CoV-2 IgG Ab 09/01/20 06:35 WBC RBC Hgb Hct MCV MCH MCHC RDW Plt Count MPV Immature Gran % (Auto) Neut % (Auto) Lymph % (Auto) Loving % (Auto) Eos % (Auto) Baso % (Auto) Lymph # (Auto) Loving # (Auto) Eos # (Auto) Baso # (Auto) Abs Immat Gran (auto) Absolute Neuts (auto) Absolute Nucleated RBC Nucleated RBC % (auto) Smear Tech's Comments PT INR APTT D-Dimer ABG pH ABG pCO2 ABG pO2 ABG HCO3 ABG O2 Saturation ABG Base Excess VBG pH VBG pCO2 VBG pO2 VBG HCO3 VBG O2 Saturation VBG Base Excess Oxygen Given Sodium Potassium Chloride Carbon Dioxide Anion Gap BUN Creatinine Estim Creat Clear Calc Estimated GFR POC Glucose 87 Random Glucose Lactic Acid Calcium Ferritin Total Bilirubin AST ALT Alkaline Phosphatase Troponin I High Sens C-Reactive Protein B-Natriuretic Peptide Total Protein Albumin Procalcitonin Urine Color Urine Appearance Urine pH Ur Specific [place] Urine Protein Urine Glucose (UA) Urine Ketones Urine Blood Urine Nitrite Ur Leukocyte Esterase Urine RBC Urine WBC Ur Squamous Epith Cells Urine Bacteria Stool Occult Blood Urine Opiates Screen Ur Barbiturates Screen Ur Phencyclidine Scrn Ur Amphetamines Screen U Benzodiazepines Scrn Urine Cocaine Screen U Marijuana (THC) Screen Coronavirus (PCR) Influenza Type A (PCR) Influenza Type B (PCR) RSV RNA Qual (PCR) SARS-CoV-2 IgG Ab Microbiology Microbiology Results: Microbiology 08/31/20 Unknown Urine Catheterized - Straight Catheter Urine Culture - Preliminary No growth to date. Progress Note: A&P Time Spent With Patient Time: Total time spent is greater than 50% in coordination of care (as documented) at patient's floor/unit and/or counseling patient: Total time spent with greater than 50% in coordination of care (as documented) at patient's floor/unit and/or counseling patient:: 0
[2020-09-01] MEDS: Aspirin Enteric Coated 81 MG TABLET.DR PO (11:44)
[2020-09-01] MEDS: Furosemide 40 MG TABLET 80 MG PO (11:44)
[2020-09-01] MEDS: amLODIPine Besylate 5 MG TABLET PO (11:44)
[2020-09-01] MEDS: Cholecalciferol (Vitamin D3) 25 MCG TABLET 125 MCG PO (11:48)
[2020-09-01] MEDS: Azithromycin 250 MG TABLET PO (12:00)
[2020-09-01] MEDS: Paliperidone ER 3 MG TAB.ER.24 PO (13:25)
[2020-09-01] MEDS: Nitroglycerin 2 % Oint 1 GM Packet 2 INCH TRANSDERMA (13:33)
[2020-09-01] MEDS: Nicotine 14 MG PATCH.TD24 TRANSDERMA (13:35)
[2020-09-01] MEDS: Perphenazine 4 MG TABLET PO (13:45)
--- NOTE | 2020-09-01 14:35 | PC.NURSE ---
SHIFT NOTE PT AWAKE AND ALERT X 4. SLOW TO ANSWER QUESTION BUT APPROPRIATE FOR PT. OOB TO CHAIR WITH ASSIST X 1, STEADY ON FEET. BLOODY DRAINAGE IN F/C REMAINS UNCHANGED SINCE PLACEMENT AND MD AWARE. PT WEARS NC BETWEEN NOSE AND MOUTH STATES HE FEELS BETTER WITH IT IN HIS MOUTH. AV FISTUAL WITH WITH POSITIVE BRUIT AND THRILL WITH DRESSING INTACT. PRN ANGIO X 2 PATENT AND INATCT. F/C REMOVED PER MD ORDERS AND PT VOIDED IN URINAL SINCE REMOVAL. PT NOTED TO HAVE INCREASED SBP >[address] MCKEON MADE AWARE AND ORDERS OBTAINED FOR NITROPASTE 2 INCHES TO THE RIGHT UPPER ARM- REPEAT BP 158/65. PT TRANSITIONED TO [facility] LEVEL OF CARE. WILL CONTINUE TO ASSESS AND MONITOR.
--- NOTE | 2020-09-01 19:39 | PC.NURSE ---
Involved with care since 11 am, assumed care at 1500. Patient alert and oriented, somewhat slow responses, and is slightly impulsive at times, but answers questions appropriately. Patient with LS markedly diminished throughout, no shortness of breath, does have intermittent dry hacking nonproductive cough and excessive drooling of clear thin fluid. Patient with some hypertension earlier today, sbp now 150's s/p nitropaste. Patient is in sinus rhythm with occasional PVCs on the monitor. Discussed the trend upwards of troponins in patient record with MD, and repeat labs were ordered for the morning to followup. patient with Fistula in left upper arm, +thrill and + bruit; last dialysis was yesterday. Canas catheter has been putting out dark red to punch colored urine in the daytime, was removed in the afternoon, patient is able to void in urinal; urine noted to still be punch colored, no clots or shreds noted today, but discussed with MD.
--- NOTE | 2020-09-01 19:47 | PC.NURSE ---
patient transferred to [facility] unit, with warm handover given to RN
[2020-09-01] MEDS: Famotidine 20 MG TABLET PO (20:37)
[2020-09-01] MEDS: Metoprolol Tartrate 25 MG TABLET PO (20:37)
[2020-09-02] VITALS (9 sets, daily range): BP systolic 136–187; BP diastolic 48–83; PULSE 64–97; RESP 16–20; TEMP 36.2–36.7; O2SAT 91–99; BMI 28.8
--- NOTE | 2020-09-02 09:08 | HO.PM.IMPN ---
Subjective Subjective Date of Service: 09/02/20 Interval History: seen and examined this AM reports feeling better would like to go home denies other complaints Physical Exam Vital Signs: Vital Signs: Last Vital Signs Temp 97.1 F 09/02/20 08:00 Pulse 95 09/02/20 08:00 Resp 16 09/02/20 08:00 BP 178/78 H 09/02/20 08:00 Pulse Ox 96 09/02/20 08:00 Body Mass Index 28.8 Const: Other: Gen - NAD, starting dialysis HEENT - EOMI CVS - S1S2 Lungs - no distress, on 2L with saturations 96 Abd - non-tender - punch colored urine Neuro - non-focal Objective Data Current Medications Generic Name Dose Route Start Last Admin Trade Name Freq PRN Reason Stop Dose Admin Albuterol Sulfate 2 puff 09/01/20 11:09 Albuterol Sulfate 90 Mcg 8 Gm Inhaler INHALE Q4H PRN Shortness Of Breath Amlodipine Besylate 5 mg 09/01/20 11:10 09/01/20 11:44 Amlodipine Besylate 5 Mg Tablet PO 5 mg DAILY ARJUN Administration Protocol Aspirin 81 mg 09/01/20 11:10 09/01/20 11:44 Aspirin Enteric Coated 81 Mg Tablet.Dr PO 81 mg DAILY ARJUN Administration Azithromycin 250 mg 09/01/20 12:00 09/01/20 12:00 Azithromycin 250 Mg Tablet PO 250 mg Q24H ARJUN Administration Famotidine 20 mg 09/01/20 21:00 09/01/20 20:37 Famotidine 20 Mg Tablet PO 20 mg BEDTIME ARJUN Administration Fluticasone Propionate 1 puff 09/01/20 20:00 09/01/20 19:34 Fluticasone Propionate 100 Mcg Blst.W.Dev INHALE Not Given RBID ARJUN Furosemide 80 mg 09/01/20 11:15 09/01/20 11:44 Furosemide 40 Mg Tablet PO 80 mg DAILY ARJUN Administration Protocol Loperamide HCl 2 mg 09/01/20 11:09 Loperamide Hcl 2 Mg Capsule PO TID PRN Diarrhea Metoprolol Tartrate 25 mg 09/01/20 21:00 09/01/20 20:37 Metoprolol Tartrate 25 Mg Tablet PO 25 mg BID ARJUN Administration Protocol Nicotine 14 mg 09/01/20 11:15 09/01/20 13:35 Nicotine 14 Mg Patch.Td24 TRANSDERMA 14 mg Q24H ARJUN Administration Non-Formulary Medication 210 mg 09/01/20 15:00 Ferric Citrate [Auryxia] PO TID ARJUN Non-Formulary Medication 1,000 mg 09/01/20 11:15 [place]-3 Fatty Acids PO DAILY ARJUN Paliperidone 3 mg 09/01/20 11:15 09/01/20 13:25 Paliperidone Er 3 Mg Tab.Er.24 PO 3 mg DAILY ARJUN Administration Perphenazine 4 mg 09/01/20 11:15 09/01/20 13:45 Perphenazine 4 Mg Tablet PO 4 mg DAILY ARJUN Administration Vitamin B Complex/Folic Acid 1 cap 09/01/20 11:10 09/01/20 11:45 B Complex W-C No.20/Folic Acid Capsule PO 1 cap DAILY ARJUN Administration Vitamin D 125 mcg 09/01/20 11:10 09/01/20 11:48 Cholecalciferol (Vitamin D3) 25 Mcg Tablet PO 125 mcg DAILY ARJUN Administration Labs CBC & Chem 7: 09/01/20 05:35 09/01/20 05:35 Microbiology Microbiology Results: Microbiology 08/31/20 Unknown Urine Catheterized - Straight Catheter Urine Culture - Final No growth. 08/31/20 11:48 Blood - Venous Blood Culture - Preliminary No growth after 24 hours. 08/31/20 11:48 Blood - Venous Blood Culture - Preliminary No growth after 24 hours. Assessment and Plan (1) Respiratory failure with hypoxia: Status: Acute Assessment and Plan: This is a 60 yo M with a PMH of chronic hypoxic resp failure on 2L at rest and 4L with exertion, ESRD on dialysis MWF (per nephrology notes), COVID-19 on Aug 18 (per ICU notes), Hypertension who presented with sudden onset mental status changes, hypoxia and respiratory failure which required emergent intubation and mechanical ventilation in the intensive care pain. He underwent urgent dialysis and was subsequently able to be weaned off the ventilator. He was observed in the intensive care additional 24 hours and transferred out on 09/01/2020. 1. Acute on Chronic Respiratory failure with hypoxia suspected due to flash pulmonary edema in the setting of a known ESRD patient. Known COVID which is more than 2 weeks old. Possibility of aspiration pneumonia / pneumonitis. Antibiotics have been discontinued in ICU. Will monitor off antibiotics for the time being now on his baseline 2L by NC at rest 2. Hypertensive Emergency continue his norvasc / metoprolol -- uptitrate as needed nephrology on board 3. ESRD on dialysis MWF per nephrology notes, plan is for dialysis today and then resumption of his usual MWF monitor lytes as needed 4. Anemia trend cbc 5. ? microscopic hematuria urine is punch colored - reportedly had charles in the ICU; suspected from trauma send UA monitor 6. COVID 19 diagnosed 08/18/2020 per history asymptomatic at this time 7. Elevated trop-I from his acute respiratory failure / htn urgency seen by cardiology -- outpatient ischemic work up Full Code DVT pptx, mechanical (due to possible hematuria)
--- NOTE | 2020-09-02 09:48 | PC.NURSE ---
Patient noted to have 300cc dark red urine in urinal. Per report from icu patient was voiding punch colored urine since removal of charles 09/01/19. aware. new order for UA, continue to monitor and trend CBC.
[2020-09-02 09:59] LABS: Hematocrit 27.6 % (42-52); Hemoglobin 8.7 g/dl (14.0-18.0); Mean Corpuscular HGB Conc 31.5 g/dl (31.0-36.0); Mean Corpuscular Volume 98.2 fL (80-98); Mean Platelet Volume 9.6 fL (9.4-12.4); Platelet Count 213 X10*3/uL (160-400); Red Blood Count 2.81 X10*6/uL (4.60-5.80); Red Cell Distribution Width 13.9 % (11.0-16.0); White Blood Count 7.3 X10*3/uL (4.8-10.8)
[2020-09-02 10:02] LABS: Glucose Urine UA NEG (NEG); Leukocyte Esterase Urine NEG (NEG); Nitrite Urine NEG (NEG); PH 8.5 (5.0-8.0); Urine Blood 3+ (NEG); Urine Ketones NEG (NEG)
[2020-09-02 10:05] LABS: Appearance Urine CLOUDY; Color Urine RED; Urine Protein 2+ MG/DL (NEG-TRACE)
[2020-09-02 10:06] LABS: RBC Urine TNTC /HPF (0); Squamous Epithelial Cell Urine TRACE /LPF; WBC Urine 0-2 /HPF (0-4)
--- NOTE | 2020-09-02 11:17 | MHC.CM.PN ---
Addendum entered by Karey Cameron 09/02/20 12:32: Received message from MD: d/c is pending today as pt's BP remains elevated and not entirely controlled. Call placed to Hannah at [facility] to inform her - attempted to contact pt's Abdoulaye WILSON to inform him of delay: mailbox full :not able to leave a message. Will try to contact Abdoulaye later on. Original Note: PER MD conversation at rounds: pt may be able to d/c later today after hemodialysis and return of labs: Call placed to pt's roommate and Abdoulaye WILSON to update him on status and arrange transportation. He will await a call with p/u time. Call placed to [facility] : spoke with JOO Young to update her on pt's potential d/c later today: She requested the d/c summary be faxed to her at [phone]. cm to finalize d/c plans/time with
--- NOTE | 2020-09-02 11:37 | P.PNNP_ITS ---
Subjective Subjective Date of Service: 09/02/20 Interval history: seen and examined this AM currently on HD Physical Exam Vital Signs: Vital Signs: Last Vital Signs Temp 97.1 F 09/02/20 08:00 Pulse 95 09/02/20 08:00 Resp 16 09/02/20 08:00 BP 178/78 H 09/02/20 08:00 Pulse Ox 96 09/02/20 08:00 Body Mass Index 28.8 Const: General: other (Lethargic, diaphoretic, hypoxic, respiratory distress) HENMT: Head: Yes normal to inspection, Yes normocephalic and Yes atraumatic Ears: external ears normal General nose exam: Normal external nose present Face and sinus: Yes normal facial exam Mouth: Normal oral and palatal mucosa present Throat: Yes posterior oropharynx normal Eyes: Periorbital: periorbital findings normal Eyelids: Yes eyelids normal Conjunctivae: conjunctivae normal Sclerae: sclerae normal Corneas: corneas normal Pupils: Equal, round and reactive pupils present Direct Ophthalmoscopy: normal light reflex Neck: Neck: Yes no lymphadenopathy and Yes trachea midline Chest: Chest palpation & inspection: normal inspection of the chest Resp: Effort & Inspection: respiratory distress Auscultation: diminished lung sounds diffuse Cardio: Rate: regular rate Rhythm: regular rhythm Heart sounds: S1 normal heart sound present, S2 normal heart sound present and no murmurs GI: Inspection: Yes normal to inspection Palpation (GI): Soft to palpation and No hepatosplenomegaly present Rectal Exam - Male: Yes other (Dark black stool, Hemoccult negative) : General: Yes no CVA tenderness Back/Spine/Pelvis: Back: no CVA tenderness Cervical Spine: normal cervical lordosis Thoracic/Lumbar Spine: thoracic and lumbar spine normal to inspe ction Skin: Lesions: no lesions Rashes: no rashes Wounds: no wounds Neuro: General: other (Altered mental status, diaphoretic, hypoxic, not responding to painful stim) Cranial nerves: Yes Equal, round and reactive pupils present Cognition (Neuro): normal cognition Speech: Abnormal speech present Motor exam (neuro): 5/5 motor strength present throughout Extrem: General: Yes normal to inspection Psych: Appearance: well kempt Mental Status: mental status grossly normal Speech and movement: Normal speech and movement present Affect: normal affect Attitude: cooperative Thought process: Normal thought process present Thought content: Normal thought content present Objective Data Labs CBC & Chem 7: 09/02/20 09:47 09/01/20 05:35 Labs: Laboratory Results - last 24 hr 09/02/20 09/02/20 09:46 09:47 WBC 7.3 RBC 2.81 L Hgb 8.7 L Hct 27.6 L MCV 98.2 H MCH 31.0 MCHC 31.5 RDW 13.9 Plt Count 213 MPV 9.6 Absolute Nucleated RBC 0.000 Nucleated RBC % (auto) 0.0 Urine Color RED Urine Appearance CLOUDY Urine pH 8.5 H Ur Specific [place] 1.020 Urine Protein 2+ H Urine Glucose (UA) NEG Urine Ketones NEG Urine Blood 3+ H Urine Nitrite NEG Ur Leukocyte Esterase NEG Urine RBC TNTC H Urine WBC 0-2 Ur Squamous Epith Cells TRACE Urine Bacteria NONE Microbiology Microbiology Results: Microbiology 08/31/20 Unknown Urine Catheterized - Straight Catheter Urine Culture - Final No growth. 08/31/20 11:48 Blood - Venous Blood Culture - Preliminary No growth after 24 hours. 08/31/20 11:48 Blood - Venous Blood Culture - Preliminary No growth after 24 hours. Assessment & Plan Assessment and plan (1) Respiratory failure: Status: Acute (2) Hypertensive crisis: Status: Acute (3) COVID-19: Status: Acute Assessment and Plan: 1. ESRD 2. Resp faiure req inyubation 3. Anemia 4. COPD 5. COVID pos from 08/19 REC: cont HD 3x/wk..he is off schedule as usu mwf..will plan on next HD sat and then back to mwf schedule or if heis d/c todaythen will get outpt HD tomorrow at outpt unit willfollow with team Time Spent With Patient Time: Total time spent is greater than 50% in coordination of care (as documented) at patient's floor/unit and/or counseling patient:
[2020-09-02] MEDS: Cholecalciferol (Vitamin D3) 25 MCG TABLET 125 MCG PO (12:41)
[2020-09-02] MEDS: Aspirin Enteric Coated 81 MG TABLET.DR PO (12:42)
[2020-09-02] MEDS: Perphenazine 4 MG TABLET PO (12:42)
[2020-09-02] MEDS: Azithromycin 250 MG TABLET PO (12:42)
[2020-09-02] MEDS: Furosemide 40 MG TABLET 80 MG PO (12:42)
[2020-09-02] MEDS: Metoprolol Tartrate 25 MG TABLET PO ×2 (12:43→21:06)
[2020-09-02] MEDS: Paliperidone ER 3 MG TAB.ER.24 PO (12:43)
[2020-09-02] MEDS: Nicotine 14 MG PATCH.TD24 TRANSDERMA (12:43)
[2020-09-02] MEDS: amLODIPine Besylate 5 MG TABLET PO (12:43)
[2020-09-02] MEDS: Fluticasone Propionate 100 MCG BLST.W.DEV 1 PUFF INHALE (20:48)
[2020-09-02] MEDS: Famotidine 20 MG TABLET PO (21:06)
[2020-09-03] VITALS: BP 173/81; PULSE 75; RESP 21; TEMP 36.4; O2SAT 96
[2020-09-03 03:26] VITALS: BP 172/81; PULSE 67; RESP 21; TEMP 36.1; O2SAT 99
[2020-09-03 07:17] LABS: Hematocrit 26.2 % (42-52); Hemoglobin 8.1 g/dl (14.0-18.0); Mean Corpuscular HGB Conc 30.9 g/dl (31.0-36.0); Mean Corpuscular Hemoglobin 30.8 pg (27.0-33.0); Mean Corpuscular Volume 99.6 fL (80-98); Mean Platelet Volume 10.2 fL (9.4-12.4); Platelet Count 207 X10*3/uL (160-400); Red Blood Count 2.63 X10*6/uL (4.60-5.80); Red Cell Distribution Width 13.9 % (11.0-16.0)
[2020-09-03 07:26] LABS: Anion Gap 15 (12-20); Blood Urea Nitrogen 43 mg/dL (9-16); Calcium 8.3 mg/dL (8.4-10.2); Carbon Dioxide 29 mmol/L (22-29); Chloride 99 mmol/L (96-108); Creatinine Clr Calc Pharmacy 13.3; Estimated Glomerular Filt Rate 9; Glucose Random 80 mg/dL (60-115); Potassium 4.3 mmol/l (3.3-5.1); Sodium 139 mmol/L (135-145)
[2020-09-03 07:58] VITALS: PULSE 79; O2SAT 95
[2020-09-03] MEDS: Fluticasone Propionate 100 MCG BLST.W.DEV 1 PUFF INHALE (07:58)
[2020-09-03 08:00] VITALS: BP 164/71; PULSE 59; RESP 12; TEMP 36; O2SAT 98; BMI 27.9
--- NOTE | 2020-09-03 08:46 | PC.NURSE ---
lab called to report high creatinine. 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
--- NOTE | 2020-09-03 09:47 | P.PNNP_ITS ---
Subjective Subjective Date of Service: 09/03/20 Interval history: seen and examined this AM currently on HD Physical Exam Vital Signs: Vital Signs: Last Vital Signs Temp 96.8 F 09/03/20 08:00 Pulse 59 09/03/20 08:00 Resp 12 09/03/20 08:00 BP 164/71 H 09/03/20 08:00 Pulse Ox 98 09/03/20 08:00 Body Mass Index 28.8 Const: General: other (Lethargic, diaphoretic, hypoxic, respiratory distress) HENMT: Head: Yes normal to inspection, Yes normocephalic and Yes atraumatic Ears: external ears normal General nose exam: Normal external nose present Face and sinus: Yes normal facial exam Mouth: Normal oral and palatal mucosa present Throat: Yes posterior oropharynx normal Eyes: Periorbital: periorbital findings normal Eyelids: Yes eyelids normal Conjunctivae: conjunctivae normal Sclerae: sclerae normal Corneas: corneas normal Pupils: Equal, round and reactive pupils present Direct Ophthalmoscopy: normal light reflex Neck: Neck: Yes no lymphadenopathy and Yes trachea midline Chest: Chest palpation & inspection: normal inspection of the chest Resp: Effort & Inspection: respiratory distress Auscultation: diminished lung sounds diffuse Cardio: Rate: regular rate Rhythm: regular rhythm Heart sounds: S1 normal heart sound present, S2 normal heart sound present and no murmurs GI: Inspection: Yes normal to inspection Palpation (GI): Soft to palpation and No hepatosplenomegaly present Rectal Exam - Male: Yes other (Dark black stool, Hemoccult negative) : General: Yes no CVA tenderness Back/Spine/Pelvis: Back: no CVA tenderness Cervical Spine: normal cervical lordosis Thoracic/Lumbar Spine: thoracic and lumbar spine normal to inspe ction Skin: Lesions: no lesions Rashes: no rashes Wounds: no wounds Neuro: General: other (Altered mental status, diaphoretic, hypoxic, not responding to painful stim) Cranial nerves: Yes Equal, round and reactive pupils present Cognition (Neuro): normal cognition Speech: Abnormal speech present Motor exam (neuro): 5/5 motor strength present throughout Extrem: General: Yes normal to inspection Psych: Appearance: well kempt Mental Status: mental status grossly normal Speech and movement: Normal speech and movement present Affect: normal affect Attitude: cooperative Thought process: Normal thought process present Thought content: Normal thought content present Objective Data Labs CBC & Chem 7: 09/03/20 06:28 09/03/20 06:28 Labs: Laboratory Results - last 24 hr 09/02/20 09/02/20 09/03/20 09:46 09:47 06:28 WBC 7.3 7.0 RBC 2.81 L 2.63 L Hgb 8.7 L 8.1 L Hct 27.6 L 26.2 L MCV 98.2 H 99.6 H MCH 31.0 30.8 MCHC 31.5 30.9 L RDW 13.9 13.9 Plt Count 213 207 MPV 9.6 10.2 Absolute Nucleated RBC 0.000 0.000 Nucleated RBC % (auto) 0.0 0.0 Sodium Potassium Chloride Carbon Dioxide Anion Gap BUN Creatinine Estim Creat Clear Calc Estimated GFR Random Glucose Calcium Urine Color RED Urine Appearance CLOUDY Urine pH 8.5 H Ur Specific [place] 1.020 Urine Protein 2+ H Urine Glucose (UA) NEG Urine Ketones NEG Urine Blood 3+ H Urine Nitrite NEG Ur Leukocyte Esterase NEG Urine RBC TNTC H Urine WBC 0-2 Ur Squamous Epith Cells TRACE Urine Bacteria NONE 09/03/20 06:28 WBC RBC Hgb Hct MCV MCH MCHC RDW Plt Count MPV Absolute Nucleated RBC Nucleated RBC % (auto) Sodium 139 Potassium 4.3 Chloride 99 Carbon Dioxide 29 Anion Gap 15 BUN 43 H Creatinine 6.18 H* Estim Creat Clear Calc 13.3 Estimated GFR 9 Random Glucose 80 Calcium 8.3 L Urine Color Urine Appearance Urine pH Ur Specific [place] Urine Protein Urine Glucose (UA) Urine Ketones Urine Blood Urine Nitrite Ur Leukocyte Esterase Urine RBC Urine WBC Ur Squamous Epith Cells Urine Bacteria Microbiology Microbiology Results: Microbiology 08/31/20 11:48 Blood - Venous Blood Culture - Preliminary No growth after 48 hours. 08/31/20 11:48 Blood - Venous Blood Culture - Preliminary No growth after 48 hours. 08/31/20 Unknown Urine Catheterized - Straight Catheter Urine Culture - Final No growth. Assessment & Plan Assessment and plan (1) Respiratory failure: Status: Acute (2) Hypertensive crisis: Status: Acute (3) COVID-19: Status: Acute Assessment and Plan: 1. ESRD 2. Resp faiure req inyubation..resolved; ques flash pulm edema from severe HTN 3. Anemia 4. COPD 5. COVID pos from 08/19 6. HTN: REC: cont HD 3x/wk..he is basck on schedule .. mwf..; agree with incr in BP meds Time Spent With Patient Time: Total time spent is greater than 50% in coordination of care (as documented) at patient's floor/unit and/or counseling patient:
[2020-09-03] MEDS: Nicotine 14 MG PATCH.TD24 TRANSDERMA (11:20)
--- NOTE | 2020-09-03 11:28 | PM.DS ---
DS: Providers Provider Date of Service: 09/03/20 Date of admission: 08/31/20 14:20 Primary care physician: Sal Valencia MD Consults: 09/01/20 07:37 Consult to Cardiology Stat Consulting Provider: Trev Mccoy Reason for consultation: Acute resp failure 2? CHF, w elevated troponin 09/01/20 09:13 Consult to Nephrology Stat Consulting Provider: John Leger Reason for consultation: END-STAGE RENAL FAILURE WITH ACUTE PULMONARY EDEMA Has provider been notified: Yes DS: Diagnosis Discharge Diagnosis (1) Acute and chronic respiratory failure with hypoxia: Status: Acute (2) Hypertensive emergency: Status: Acute (3) Hematuria: Status: Acute (4) End stage renal disease: Status: Acute (5) COVID-19: Status: Acute (6) Elevated troponin I level: Status: Acute DS: Medications Discharge Medications Home Medications: Home Medications Medication Instructions Recorded Confirmed Auryxia 210 mg PO TID 08/31/20 08/31/20 Flovent HFA 1 puff INHALATION BID 08/31/20 08/31/20 Crispin Caps 1 cap PO DAILY 08/31/20 08/31/20 albuterol sulfate [ProAir HFA] 2 puff INHALATION Q4-6H PRN 08/31/20 08/31/20 aspirin 81 mg PO DAILY 08/31/20 08/31/20 cholecalciferol (vitamin D3) 125 mcg PO DAILY 08/31/20 08/31/20 [Vitamin D3] famotidine 20 mg PO BEDTIME 08/31/20 08/31/20 furosemide 80 mg PO DAILY 08/31/20 08/31/20 loperamide 2 mg PO TID PRN 08/31/20 08/31/20 metoprolol tartrate 25 mg PO BID 08/31/20 08/31/20 nicotine 1 patch TRANSDERMAL Q24H 08/31/20 08/31/20 omega-3 fatty acids 1,000 mg PO DAILY 08/31/20 08/31/20 paliperidone 3 mg PO QAM 08/31/20 08/31/20 perphenazine 4 mg PO DAILY 08/31/20 08/31/20 Previous Rx's Medication Instructions Recorded amlodipine 10 mg PO DAILY #30 tab 09/03/20 azithromycin 250 mg PO Q24H #3 tab 09/03/20 DS: Summary Hospital Course Hospital Course: Patient presented to the hospital in severe respiratory distress and significant hypoxia with alteration in his mentation and emergently intubated in the emergency room. He was also noted have blood pressure readings to 241/90 upon admission. He was subsequently admitted to the intensive care unit and underwent urgent dialysis with quick resolution of his respiratory failure. He was able to be quickly weaned from the ventilator and transitioned to nasal cannula. He was dialyzed on the day after admission as well and is tolerating 2 L at the time of discharge. In regards to his blood pressure, his Norvasc was increased from 5 mg daily to 10 mg daily with improvement in his blood pressure readings. He will be discharged with his other antihypertensives unchanged and this can be further managed in the outpatient setting at the his dialysis days. Patient's hospital course was further complicated by microscopic hematuria which was felt to be secondary to traumatic Charles catheterization. Patient's urine has started clearing up at the time of discharge, if this persists, can have a repeat UA and further evaluation at that time. Time Spent with Patient Time attestation: Total time spent providing and/or coordinating discharge services: Discharge coordination time: Greater than 30 minutes Physical Exam Vital Signs: Vital Signs: Last Vital Signs Temp 96.8 F 09/03/20 08:00 Pulse 59 09/03/20 08:00 Resp 12 09/03/20 08:00 BP 164/71 H 09/03/20 08:00 Pulse Ox 98 09/03/20 08:00 Body Mass Index 27.9 Const: Other: Gen - NAD, starting dialysis HEENT - EOMI CVS - S1S2 Lungs - no distress, on 2L with saturations 96 Abd - non-tender Neuro - non-focal DS: Data Data Completed and Pending Labs on day of discharge: Laboratory Tests 08/31/20 08/31/20 08/31/20 11:36 11:48 11:48 WBC 24.6 H RBC 2.98 L Hgb 9.5 L Hct 29.4 L MCV 98.7 H MCH 31.9 MCHC 32.3 RDW 13.8 Plt Count 268 MPV 9.4 Immature Gran % (Auto) 2.1 H Neut % (Auto) 91.4 H Lymph % (Auto) 3.1 L [place] % (Auto) 3.0 Eos % (Auto) 0.1 Baso % (Auto) 0.3 Lymph # (Auto) 0.8 L [place] # (Auto) 0.7 Eos # (Auto) 0.0 Baso # (Auto) 0.1 Abs Immat Gran (auto) 0.51 H Absolute Neuts (auto) 22.5 H Absolute Nucleated RBC 0.000 Nucleated RBC % (auto) 0.0 Smear Tech's Comments VERIFIED PT 12.4 INR 1.0 APTT 31.9 D-Dimer 1345 ABG pH ABG pCO2 ABG pO2 ABG HCO3 ABG O2 Saturation ABG Base Excess VBG pH VBG pCO2 VBG pO2 VBG HCO3 VBG O2 Saturation VBG Base Excess Oxygen Given Sodium Potassium Chloride Carbon Dioxide Anion Gap BUN Creatinine Estim Creat Clear Calc Estimated GFR POC Glucose 274 H Random Glucose Lactic Acid Calcium Ferritin Total Bilirubin AST ALT Alkaline Phosphatase Troponin I High Sens C-Reactive Protein B-Natriuretic Peptide Total Protein Albumin Procalcitonin Urine Color Urine Appearance Urine pH Ur Specific [place] Urine Protein Urine Glucose (UA) Urine Ketones Urine Blood Urine Nitrite Ur Leukocyte Esterase Urine RBC Urine WBC Ur Squamous Epith Cells Urine Bacteria Stool Occult Blood Urine Opiates Screen Ur Barbiturates Screen Ur Phencyclidine Scrn Ur Amphetamines Screen U Benzodiazepines Scrn Urine Cocaine Screen U Marijuana (THC) Screen Coronavirus (PCR) Influenza Type A (PCR) Influenza Type B (PCR) RSV RNA Qual (PCR) SARS-CoV-2 IgG Ab 08/31/20 08/31/20 08/31/20 11:48 11:48 11:48 WBC RBC Hgb Hct MCV MCH MCHC RDW Plt Count MPV Immature Gran % (Auto) Neut % (Auto) Lymph % (Auto) [place] % (Auto) Eos % (Auto) Baso % (Auto) Lymph # (Auto) [place] # (Auto) Eos # (Auto) Baso # (Auto) Abs Immat Gran (auto) Absolute Neuts (auto) Absolute Nucleated RBC Nucleated RBC % (auto) Smear Tech's Comments PT INR APTT D-Dimer ABG pH ABG pCO2 ABG pO2 ABG HCO3 ABG O2 Saturation ABG Base Excess VBG pH VBG pCO2 VBG pO2 VBG HCO3 VBG O2 Saturation VBG Base Excess Oxygen Given Sodium 127 L Potassium 5.8 H Chloride 88 L Carbon Dioxide 25 Anion Gap 20 BUN 62 H Creatinine 8.11 H* Estim Creat Clear Calc TNP Estimated GFR 7 POC Glucose Random Glucose 296 H Lactic Acid Calcium 8.6 Ferritin 3217 H Total Bilirubin 0.4 AST 25 ALT 20 Alkaline Phosphatase 92 Troponin I High Sens 50.0 H C-Reactive Protein 3.67 H B-Natriuretic Peptide 1286 H Total Protein 6.4 L Albumin 3.7 Procalcitonin 0.28 Urine Color Urine Appearance Urine pH Ur Specific [place] Urine Protein Urine Glucose (UA) Urine Ketones Urine Blood Urine Nitrite Ur Leukocyte Esterase Urine RBC Urine WBC Ur Squamous Epith Cells Urine Bacteria Stool Occult Blood Urine Opiates Screen Ur Barbiturates Screen Ur Phencyclidine Scrn Ur Amphetamines Screen U Benzodiazepines Scrn Urine Cocaine Screen U Marijuana (THC) Screen Coronavirus (PCR) Influenza Type A (PCR) Influenza Type B (PCR) RSV RNA Qual (PCR) SARS-CoV-2 IgG Ab 08/31/20 08/31/20 08/31/20 11:48 11:49 12:05 WBC RBC Hgb Hct MCV MCH MCHC RDW Plt Count MPV Immature Gran % (Auto) Neut % (Auto) Lymph % (Auto) [place] % (Auto) Eos % (Auto) Baso % (Auto) Lymph # (Auto) [place] # (Auto) Eos # (Auto) Baso # (Auto) Abs Immat Gran (auto) Absolute Neuts (auto) Absolute Nucleated RBC Nucleated RBC % (auto) Smear Tech's Comments PT INR APTT D-Dimer ABG pH ABG pCO2 ABG pO2 ABG HCO3 ABG O2 Saturation ABG Base Excess VBG pH VBG pCO2 VBG pO2 VBG HCO3 VBG O2 Saturation VBG Base Excess Oxygen Given Sodium Potassium Chloride Carbon Dioxide Anion Gap BUN Creatinine Estim Creat Clear Calc Estimated GFR POC Glucose Random Glucose Lactic Acid 1.2 Calcium Ferritin Total Bilirubin AST ALT Alkaline Phosphatase Troponin I High Sens C-Reactive Protein B-Natriuretic Peptide Total Protein Albumin Procalcitonin Urine Color RED Urine Appearance CLOUDY Urine pH 7.5 Ur Specific [place] 1.015 Urine Protein 2+ H Urine Glucose (UA) 100 H Urine Ketones NEG Urine Blood 3+ H Urine Nitrite NEG Ur Leukocyte Esterase TRACE H Urine RBC 76-150 H Urine WBC 1-4 Ur Squamous Epith Cells TRACE Urine Bacteria NONE Stool Occult Blood Urine Opiates Screen Ur Barbiturates Screen Ur Phencyclidine Scrn Ur Amphetamines Screen U Benzodiazepines Scrn Urine Cocaine Screen U Marijuana (THC) Screen Coronavirus (PCR) Influenza Type A (PCR) Influenza Type B (PCR) RSV RNA Qual (PCR) SARS-CoV-2 IgG Ab Positive 08/31/20 08/31/20 08/31/20 12:05 13:15 13:40 WBC RBC Hgb Hct MCV MCH MCHC RDW Plt Count MPV Immature Gran % (Auto) Neut % (Auto) Lymph % (Auto) [place] % (Auto) Eos % (Auto) Baso % (Auto) Lymph # (Auto) [place] # (Auto) Eos # (Auto) Baso # (Auto) Abs Immat Gran (auto) Absolute Neuts (auto) Absolute Nucleated RBC Nucleated RBC % (auto) Smear Tech's Comments PT INR APTT D-Dimer ABG pH 7.14 L* ABG pCO2 75 H* ABG pO2 88 ABG HCO3 25 ABG O2 Saturation 94.4 ABG Base Excess -4.7 VBG pH VBG pCO2 VBG pO2 VBG HCO3 VBG O2 Saturation VBG Base Excess Oxygen Given 100% Sodium Potassium Chloride Carbon Dioxide Anion Gap BUN Creatinine Estim Creat Clear Calc Estimated GFR POC Glucose Random Glucose Lactic Acid Calcium Ferritin Total Bilirubin AST ALT Alkaline Phosphatase Troponin I High Sens C-Reactive Protein B-Natriuretic Peptide Total Protein Albumin Procalcitonin Urine Color Urine Appearance Urine pH Ur Specific [place] Urine Protein Urine Glucose (UA) Urine Ketones Urine Blood Urine Nitrite Ur Leukocyte Esterase Urine RBC Urine WBC Ur Squamous Epith Cells Urine Bacteria Stool Occult Blood NEG Urine Opiates Screen Not Detected Ur Barbiturates Screen Not Detected Ur Phencyclidine Scrn Not Detected Ur Amphetamines Screen Not Detected U Benzodiazepines Scrn Not Detected Urine Cocaine Screen Not Detected U Marijuana (THC) Screen Not Detected Coronavirus (PCR) Influenza Type A (PCR) Influenza Type B (PCR) RSV RNA Qual (PCR) SARS-CoV-2 IgG Ab 08/31/20 08/31/20 09/01/20 14:45 17:15 01:08 WBC RBC Hgb Hct MCV MCH MCHC RDW Plt Count MPV Immature Gran % (Auto) Neut % (Auto) Lymph % (Auto) [place] % (Auto) Eos % (Auto) Baso % (Auto) Lymph # (Auto) [place] # (Auto) Eos # (Auto) Baso # (Auto) Abs Immat Gran (auto) Absolute Neuts (auto) Absolute Nucleated RBC Nucleated RBC % (auto) Smear Tech's Comments PT INR APTT D-Dimer ABG pH ABG pCO2 ABG pO2 ABG HCO3 ABG O2 Saturation ABG Base Excess VBG pH VBG pCO2 VBG pO2 VBG HCO3 VBG O2 Saturation VBG Base Excess Oxygen Given Sodium Potassium Chloride Carbon Dioxide Anion Gap BUN Creatinine Estim Creat Clear Calc Estimated GFR POC Glucose 122 H 64 Random Glucose Lactic Acid Calcium Ferritin Total Bilirubin AST ALT Alkaline Phosphatase Troponin I High Sens C-Reactive Protein B-Natriuretic Peptide Total Protein Albumin Procalcitonin Urine Color Urine Appearance Urine pH Ur Specific [place] Urine Protein Urine Glucose (UA) Urine Ketones Urine Blood Urine Nitrite Ur Leukocyte Esterase Urine RBC Urine WBC Ur Squamous Epith Cells Urine Bacteria Stool Occult Blood Urine Opiates Screen Ur Barbiturates Screen Ur Phencyclidine Scrn Ur Amphetamines Screen U Benzodiazepines Scrn Urine Cocaine Screen U Marijuana (THC) Screen Coronavirus (PCR) POSITIVE A Influenza Type A (PCR) NEGATIVE Influenza Type B (PCR) NEGATIVE RSV RNA Qual (PCR) NEGATIVE SARS-CoV-2 IgG Ab 09/01/20 09/01/20 09/01/20 05:35 05:35 05:35 WBC 8.4 RBC 2.67 L Hgb 8.1 L Hct 26.1 L MCV 97.8 MCH 30.3 MCHC 31.0 RDW 14.0 Plt Count 224 MPV 9.9 Immature Gran % (Auto) 0.8 H Neut % (Auto) 80.7 H Lymph % (Auto) 9.0 L [place] % (Auto) 8.6 Eos % (Auto) 0.5 Baso % (Auto) 0.4 Lymph # (Auto) 0.8 L [place] # (Auto) 0.7 Eos # (Auto) 0.0 Baso # (Auto) 0.0 Abs Immat Gran (auto) 0.07 H Absolute Neuts (auto) 6.8 Absolute Nucleated RBC 0.000 Nucleated RBC % (auto) 0.0 Smear Tech's Comments PT INR APTT D-Dimer 1271 ABG pH ABG pCO2 ABG pO2 ABG HCO3 ABG O2 Saturation ABG Base Excess VBG pH VBG pCO2 VBG pO2 VBG HCO3 VBG O2 Saturation VBG Base Excess Oxygen Given Sodium 135 Potassium 4.9 Chloride 95 L Carbon Dioxide 30 H Anion Gap 15 BUN 30 H D Creatinine 5.07 H* Estim Creat Clear Calc 16.5 Estimated GFR 12 POC Glucose Random Glucose 105 D Lactic Acid Calcium 8.4 Ferritin 2500 H Total Bilirubin AST ALT Alkaline Phosphatase Troponin I High Sens C-Reactive Protein 5.53 H B-Natriuretic Peptide Total Protein Albumin Procalcitonin Urine Color Urine Appearance Urine pH Ur Specific [place] Urine Protein Urine Glucose (UA) Urine Ketones Urine Blood Urine Nitrite Ur Leukocyte Esterase Urine RBC Urine WBC Ur Squamous Epith Cells Urine Bacteria Stool Occult Blood Urine Opiates Screen Ur Barbiturates Screen Ur Phencyclidine Scrn Ur Amphetamines Screen U Benzodiazepines Scrn Urine Cocaine Screen U Marijuana (THC) Screen Coronavirus (PCR) Influenza Type A (PCR) Influenza Type B (PCR) RSV RNA Qual (PCR) SARS-CoV-2 IgG Ab 09/01/20 09/01/20 09/01/20 05:35 05:35 05:35 WBC RBC Hgb Hct MCV MCH MCHC RDW Plt Count MPV Immature Gran % (Auto) Neut % (Auto) Lymph % (Auto) [place] % (Auto) Eos % (Auto) Baso % (Auto) Lymph # (Auto) [place] # (Auto) Eos # (Auto) Baso # (Auto) Abs Immat Gran (auto) Absolute Neuts (auto) Absolute Nucleated RBC Nucleated RBC % (auto) Smear Tech's Comments PT INR APTT D-Dimer ABG pH ABG pCO2 ABG pO2 ABG HCO3 ABG O2 Saturation ABG Base Excess VBG pH 7.48 H VBG pCO2 44 VBG pO2 50 VBG HCO3 32 VBG O2 Saturation 86.5 VBG Base Excess 7.7 Oxygen Given Sodium Potassium Chloride Carbon Dioxide Anion Gap BUN Creatinine Estim Creat Clear Calc Estimated GFR POC Glucose Random Glucose Lactic Acid Calcium Ferritin Total Bilirubin AST ALT Alkaline Phosphatase Troponin I High Sens 299.7 H D C-Reactive Protein B-Natriuretic Peptide 1348 H Total Protein Albumin Procalcitonin 8.61 Urine Color Urine Appearance Urine pH Ur Specific [place] Urine Protein Urine Glucose (UA) Urine Ketones Urine Blood Urine Nitrite Ur Leukocyte Esterase Urine RBC Urine WBC Ur Squamous Epith Cells Urine Bacteria Stool Occult Blood Urine Opiates Screen Ur Barbiturates Screen Ur Phencyclidine Scrn Ur Amphetamines Screen U Benzodiazepines Scrn Urine Cocaine Screen U Marijuana (THC) Screen Coronavirus (PCR) Influenza Type A (PCR) Influenza Type B (PCR) RSV RNA Qual (PCR) SARS-CoV-2 IgG Ab 09/01/20 09/02/20 09/02/20 06:35 09:46 09:47 WBC 7.3 RBC 2.81 L Hgb 8.7 L Hct 27.6 L MCV 98.2 H MCH 31.0 MCHC 31.5 RDW 13.9 Plt Count 213 MPV 9.6 Immature Gran % (Auto) Neut % (Auto) Lymph % (Auto) [place] % (Auto) Eos % (Auto) Baso % (Auto) Lymph # (Auto) [place] # (Auto) Eos # (Auto) Baso # (Auto) Abs Immat Gran (auto) Absolute Neuts (auto) Absolute Nucleated RBC 0.000 Nucleated RBC % (auto) 0.0 Smear Tech's Comments PT INR APTT D-Dimer ABG pH ABG pCO2 ABG pO2 ABG HCO3 ABG O2 Saturation ABG Base Excess VBG pH VBG pCO2 VBG pO2 VBG HCO3 VBG O2 Saturation VBG Base Excess Oxygen Given Sodium Potassium Chloride Carbon Dioxide Anion Gap BUN Creatinine Estim Creat Clear Calc Estimated GFR POC Glucose 87 Random Glucose Lactic Acid Calcium Ferritin Total Bilirubin AST ALT Alkaline Phosphatase Troponin I High Sens C-Reactive Protein B-Natriuretic Peptide Total Protein Albumin Procalcitonin Urine Color RED Urine Appearance CLOUDY Urine pH 8.5 H Ur Specific [place] 1.020 Urine Protein 2+ H Urine Glucose (UA) NEG Urine Ketones NEG Urine Blood 3+ H Urine Nitrite NEG Ur Leukocyte Esterase NEG Urine RBC TNTC H Urine WBC 0-2 Ur Squamous Epith Cells TRACE Urine Bacteria NONE Stool Occult Blood Urine Opiates Screen Ur Barbiturates Screen Ur Phencyclidine Scrn Ur Amphetamines Screen U Benzodiazepines Scrn Urine Cocaine Screen U Marijuana (THC) Screen Coronavirus (PCR) Influenza Type A (PCR) Influenza Type B (PCR) RSV RNA Qual (PCR) SARS-CoV-2 IgG Ab 09/03/20 09/03/20 06:28 06:28 WBC 7.0 RBC 2.63 L Hgb 8.1 L Hct 26.2 L MCV 99.6 H MCH 30.8 MCHC 30.9 L RDW 13.9 Plt Count 207 MPV 10.2 Immature Gran % (Auto) Neut % (Auto) Lymph % (Auto) [place] % (Auto) Eos % (Auto) Baso % (Auto) Lymph # (Auto) [place] # (Auto) Eos # (Auto) Baso # (Auto) Abs Immat Gran (auto) Absolute Neuts (auto) Absolute Nucleated RBC 0.000 Nucleated RBC % (auto) 0.0 Smear Tech's Comments PT INR APTT D-Dimer ABG pH ABG pCO2 ABG pO2 ABG HCO3 ABG O2 Saturation ABG Base Excess VBG pH VBG pCO2 VBG pO2 VBG HCO3 VBG O2 Saturation VBG Base Excess Oxygen Given Sodium 139 Potassium 4.3 Chloride 99 Carbon Dioxide 29 Anion Gap 15 BUN 43 H Creatinine 6.18 H* Estim Creat Clear Calc 13.3 Estimated GFR 9 POC Glucose Random Glucose 80 Lactic Acid Calcium 8.3 L Ferritin Total Bilirubin AST ALT Alkaline Phosphatase Troponin I High Sens C-Reactive Protein B-Natriuretic Peptide Total Protein Albumin Procalcitonin Urine Color Urine Appearance Urine pH Ur Specific [place] Urine Protein Urine Glucose (UA) Urine Ketones Urine Blood Urine Nitrite Ur Leukocyte Esterase Urine RBC Urine WBC Ur Squamous Epith Cells Urine Bacteria Stool Occult Blood Urine Opiates Screen Ur Barbiturates Screen Ur Phencyclidine Scrn Ur Amphetamines Screen U Benzodiazepines Scrn Urine Cocaine Screen U Marijuana (THC) Screen Coronavirus (PCR) Influenza Type A (PCR) Influenza Type B (PCR) RSV RNA Qual (PCR) SARS-CoV-2 IgG Ab Preliminary micro results at discharge 08/31/20 11:48 Blood Culture - Preliminary Blood - Venous No growth after 48 hours. 08/31/20 11:48 Blood Culture - Preliminary Blood - Venous No growth after 48 hours. Discharge Plan Discharge Patient Disposition: Home Health Service Referrals: Sal Valencia MD [Primary Care Provider] - Discharge Medications: New azithromycin 250 mg Tablet 250 mg PO Q24H Qty: 3 RF: 0 amlodipine 5 mg Tablet 10 mg PO DAILY Qty: 30 RF: 0 Continued loperamide 2 mg Capsule 2 mg PO TID PRN (Reason: Diarrhea) RF: 0 nicotine 14 mg/24 hr Patch 24 Hour 1 patch TRANSDERMAL Q24H RF: 0 aspirin 81 mg Tablet,Delayed Release (Dr/Ec) 81 mg PO DAILY RF: 0 famotidine 20 mg Tablet 20 mg PO BEDTIME RF: 0 furosemide 80 mg Tablet 80 mg PO DAILY RF: 0 perphenazine 4 mg Tablet 4 mg PO DAILY RF: 0 metoprolol tartrate 50 mg Tablet 25 mg PO BID RF: 0 [place] Caps 1 mg Capsule 1 cap PO DAILY RF: 0 albuterol sulfate [ProAir HFA] 90 mcg/actuation Hfa Aerosol Inhaler 2 puff INHALATION Q4-6H PRN (Reason: Shortness Of Breath) RF: 0 Flovent HFA 110 mcg/actuation Hfa Aerosol Inhaler 1 puff INHALATION BID RF: 0 omega-3 fatty acids Capsule 1,000 mg PO DAILY RF: 0 paliperidone 3 mg Tablet Extended Release 24hr 3 mg PO QAM RF: 0 cholecalciferol (vitamin D3) [Vitamin D3] 125 mcg (5,000 unit) Tablet 125 mcg PO DAILY RF: 0 Auryxia 210 mg iron Tablet 210 mg PO TID RF: 0 Discontinued amlodipine 5 mg Tablet 5 mg PO DAILY RF: 0 Discharge Orders: Discharge Order (Routine); Ordered 09/03/20 Ordered By: Larry Newman Diet: advance to usual diet Activity on Discharge: As tolerated Visit Report Forms: Patient Portal Discharge page Care Plan Goals: To stay healthy and out of the hospital. Health Concerns: Respiratory Failure Hypertension ESRD Hematuria Plan of Treatment: Respiratory Failure - continue using oxygen as you have been previously doing so. Hypertension - Increase amlodipine from 5mg to 10mg. Continue other bp meds ESRD - continue dialysis as you have been doing so previously Hematuria - likely from charles catherization, recheck your urine tests in a few weeks.
[2020-09-03 11:54] VITALS: BP 175/58; PULSE 74; RESP 22; TEMP 36.3; O2SAT 100
--- NOTE | 2020-09-03 12:25 | MHC.CM.PN ---
Pt will be discharged to home today with resumption of [facility] - daily RN visits and outpt hemodialysis at [facility] M, W, F 2nd shift chair time. [place] text with Dr. Leger, pt's registered nurse post partum, confirms a hemodialysis schedule of M, W, F on the [facility] 2nd shift chair time. Call placed to pt's [facility] RNAlexandra ([phone]) Review of all d/c medications completed, confirmed pt's hemodialysis days/times: [facility] provides pt transportation. D/C summary and instructions faxed to [facility] at [phone] Call placed to [facility] at [phone] informing of pt's d/c plan. D/C information faxed to [phone]. Call placed to pts' roommate and [employer] MECHANICReed: message unable to be left: call placed to Alexandra to inform her: she states her staff will reach out to Abdoulaye and let him know of pt's return to home. Pt will transport via [employer] for his O2 needs today at 2:30pm Of note, pt has completed his COVID quarantine as he tested + on 08/18.
[2020-09-03] MEDS: Azithromycin 250 MG TABLET PO (13:59)
== END 2020-09-03 16:14 | disposition home health service (06) | DRG 137 ==
LOC: HO.ED 14:28 → HO.ICU 15:03 → HO.ISO 09-01 16:52
PROVIDERS: Physician Assistant Medical; Admitting Provider Anesthesiology; Emergency Provider Emergency Medicine Emergency Medical Services; PCP Internal Medicine; Visit Provider Family Medicine
DX: U07.1 COVID-19 (principal); J96.21 Acute and chronic respiratory failure with hypoxia; J12.82 Pneumonia due to coronavirus disease 2019; I12.0 Hypertensive chronic kidney disease with stage 5 chronic kidney disease or end stage renal disease; F25.9 Schizoaffective disorder, unspecified; I16.9 Hypertensive crisis, unspecified; R31.29 Other microscopic hematuria; N18.6 End stage renal disease; Z99.2 Dependence on renal dialysis; Z79.82 Long term (current) use of aspirin; Z79.899 Other long term (current) drug therapy
CPT/HCPCS: 0241U; 36415; 70450; 71045; 71250; 74176; 80048; 80053; 80307; 81001; 82272; 82728; 82803; 82947; 83605; 83880; 84145; 84484; 85025; 85027; 85379; 85610; 85730; 86140; 86769; 87040; 87086; 90999; 93005; 93306; 94002; 94799; 96365; 96366; 96367; 96375; 99284; 99291; 99292; J0456; J0461; J0696; J1953; J2250; J3010

== ENCOUNTER 2020-10-26 11:43 | Outpatient (REF) | payer OTHER, SELFPAY ==
[2020-10-26 13:21] LABS: Anion Gap 16 (12-20); Blood Urea Nitrogen 55 mg/dL (9-16); Calcium 9.4 mg/dL (8.4-10.2); Carbon Dioxide 32 mmol/L (22-29); Chloride 95 mmol/L (96-108); Estimated Glomerular Filt Rate 8; Glucose Random 112 mg/dL (60-115); Potassium 5.2 mmol/L (3.3-5.1); Sodium 138 mmol/L (135-145)
[2020-10-26 14:14] LABS: Estimated Average Glucose 88 mg/dL; Hemoglobin A1c % 4.7 %
== END 2020-10-26 11:44 | disposition home or self-care (01) ==
LOC: HO.10HDL 11:43
PROVIDERS: Visit Provider Internal Medicine
DX: J44.9 Chronic obstructive pulmonary disease, unspecified (principal); R73.9 Hyperglycemia, unspecified; N18.9 Chronic kidney disease, unspecified
CPT/HCPCS: 36415; 80048; 83036

== ENCOUNTER → 2021-01-13 13:51 | Outpatient (BNVA) | payer OTHER, SELFPAY | PROVIDERS: PCP Internal Medicine; Visit Provider Internal Medicine Pulmonary Disease | DX: J44.9 Chronic obstructive pulmonary disease, unspecified (principal); R91.8 Other nonspecific abnormal finding of lung field; Z99.81 Dependence on supplemental oxygen | CPT/HCPCS: 99212 ==

== ENCOUNTER 2021-05-03 12:22 | Outpatient (REF) | payer OTHER, SELFPAY ==
[2021-05-03 13:57] LABS: Urine Cytology See Pathology rpt
[2021-05-03 13:57] LABS: MANUAL DIFF FLAG NO
[2021-05-03 14:12] LABS: Basophils Percent Auto 0.5 % (0-2); Eosinophils Absolute Auto 0.1 X10*3/uL (0.0-0.4); Eosinophils Percent Auto 2.3 % (0-4); Hematocrit 30.4 % (42-52); Hemoglobin 9.8 g/dl (14.0-18.0); Imm Gran Abs Auto 0.02 X10*3/uL (0.00-0.03); Imm Gran Pct Auto 0.3 % (0.0-0.4); Lymphocytes Absolute Auto 0.8 X10*3/uL (1.2-4.9); Lymphocytes Percent Auto 13.1 % (20-40); Mean Corpuscular HGB Conc 32.2 g/dl (31.0-36.0); Mean Corpuscular Hemoglobin 31.7 pg (27.0-33.0); Mean Corpuscular Volume 98.4 fL (80-98); Mean Platelet Volume 10.9 fL (9.4-12.4); Monocytes Absolute Auto 0.6 X10*3/uL (0.1-1.2); Monocytes Percent Auto 9.8 % (2-11); Neutrophils Absolute Auto 4.3 X10*3/uL (2.0-8.3); Platelet Count 171 X10*3/uL (160-400); Red Blood Count 3.09 X10*6/uL (4.60-5.80); Red Cell Distribution Width 13.8 % (11.0-16.0); White Blood Count 5.7 X10*3/uL (4.8-10.8)
[2021-05-03 14:17] LABS: Alanine Aminotransferase 15 U/L (0-40); Albumin Level 4.3 g/dL (3.5-5.0); Alkaline Phosphatase 92 U/L (39-117); Anion Gap 14 (12-20); Aspartate Amino Transferase 17 U/L (5-37); Bilirubin Total 0.5 mg/dL (0.0-1.0); Blood Urea Nitrogen 46 mg/dL (9-16); Calcium 9.5 mg/dL (8.4-10.2); Carbon Dioxide 31 mmol/L (22-29); Chloride 95 mmol/L (96-108); Estimated Glomerular Filt Rate 8; Glucose Random 214 mg/dL (60-115); Potassium 3.9 mmol/L (3.3-5.1); Sodium 136 mmol/L (135-145); Total Protein 6.7 g/dL (6.5-8.0)
[2021-05-03 14:31] LABS: Appearance Urine CLOUDY; Color Urine RED; Glucose Urine UA 100 MG/DL (NEG); Leukocyte Esterase Urine NEG (NEG); PH 7.5 (5.0-8.0); Specific Gravity - Urine 1.015 (1.005-1.025); Urine Blood 3+ (NEG); Urine Ketones NEG (NEG); Urine Protein 3+ MG/DL (NEG-TRACE)
[2021-05-03 14:40] LABS: UACC Culture Trigger NO
[2021-05-03 14:41] LABS: RBC Urine TNTC /HPF (0); WBC Urine 0 /HPF (0-4)
== END 2021-05-03 12:23 | disposition home or self-care (01) ==
LOC: HO.10HDL 12:22
PROVIDERS: Visit Provider Internal Medicine
DX: J44.9 Chronic obstructive pulmonary disease, unspecified (principal); I12.9 Hypertensive chronic kidney disease with stage 1 through stage 4 chronic kidney disease, or unspecified chronic kidney disease; N18.9 Chronic kidney disease, unspecified
CPT/HCPCS: 36415; 80053; 81001; 81003; 85025; 87086; 88112

== ENCOUNTER 2021-05-10 09:28 | Outpatient (REF) | payer OTHER, SELFPAY ==
--- NOTE | ~2021-05-10 | CT_ITS ---
EXAMINATION: CT CHEST WITHOUT CONTRAST CLINICAL INFORMATION: History of Covid infection. Follow-up abnormal chest CT. COMPARISON: Previous chest x-ray and chest CT August 2020 TECHNIQUE: Multidetector volumetric CT imaging of the chest was done. Axial MIP volume rendering provided. Sagittal and coronal reformatted images were obtained. This CT examination was performed using dose optimization techniques as appropriate, variously including the following: *Automated exposure control *Adjustment of mA and/or kV according to patient size (this includes techniques or standardized protocols for targeted exams where dose is matched to indication/reason for exam; i.e. extremities or head) *Use of iterative reconstruction technique DLP: 166 mGy-cm FINDINGS: LUNGS: There is evidence of emphysema with bullous changes at the apices. There is chronic scarring seen at the left lung apex. There are two 5 mm left upper lobe nodules that are new axial image 209 series 5. There is a new 4 mm left upper lobe nodule axial image 360 series 5. The remaining small calcified and noncalcified nodules are stable. There is mild residual increased interstitial markings seen in the lateral right upper lobe for example axial image 29 series 4.. The mixed interstitial and airspace disease in the right upper and bilateral lower lobes otherwise appears to have resolved. MEDIASTINUM: The mediastinum is normal. PLEURA: There is no pleural effusion. No pleural mass or thickening. AXILLA: No lymphadenopathy. UPPER ABDOMEN: There may be bilateral renal cortical thinning. There is a 1 x 1.5 cm low-attenuation right adrenal nodule that is stable. There is a 1 cm low-attenuation lesion exophytic to the upper pole of the left kidney that is stable and probably represents a cyst. OSSEOUS STRUCTURES: There are old bilateral rib fractures. There are degenerative changes of the spine. CT/CT chest wo con IMPRESSION: Severe emphysema. There is residual increased interstitial markings in the lateral right upper lobe otherwise interstitial and airspace disease and bilateral pleural effusion August 2020 have resolved. 3 new left upper lobe nodules.
[2021-05-10 10:58] LABS: Urine Cytology See Pathology rpt
== END 2021-05-10 09:29 | disposition home or self-care (01) ==
LOC: HO.CT 09:28
PROVIDERS: Absent Provider Internal Medicine; PCP Internal Medicine; Visit Provider Internal Medicine Pulmonary Disease
DX: R91.8 Other nonspecific abnormal finding of lung field (principal); R31.9 Hematuria, unspecified
CPT/HCPCS: 71250

== ENCOUNTER 2021-06-20 17:12 | Outpatient (REF) | payer OTHER, SELFPAY ==
[2021-06-20 17:50] LABS: Appearance Urine CLOUDY; Color Urine RED; Glucose Urine UA 100 MG/DL (NEG); Leukocyte Esterase Urine NEG (NEG); Nitrite Urine NEG (NEG); PH 7.5 (5.0-8.0); Specific Gravity - Urine 1.015 (1.005-1.025); Urine Blood 3+ (NEG); Urine Ketones NEG (NEG); Urine Protein 3+ MG/DL (NEG-TRACE)
[2021-06-20 17:54] LABS: RBC Urine TNTC /HPF (0); WBC Urine 0-2 /HPF (0-4)
== END 2021-06-20 17:13 | disposition home or self-care (01) ==
LOC: HO.LNP 17:12
PROVIDERS: Visit Provider Physician Assistant Surgical
DX: N39.0 Urinary tract infection, site not specified (principal)
CPT/HCPCS: 81001; 87086

== ENCOUNTER 2022-02-07 11:51 | Outpatient (REF) | payer OTHER, MEDICAID, SELFPAY ==
[2022-02-07 12:07] LABS: MANUAL DIFF FLAG NO
[2022-02-07 13:06] LABS: Basophils Percent Auto 0.3 % (0-2); Eosinophils Absolute Auto 0.2 X10*3/uL (0.0-0.4); Eosinophils Percent Auto 1.4 % (0-4); Hematocrit 28.5 % (42.0-52.0); Hemoglobin 8.6 g/dl (14.0-18.0); Imm Gran Abs Auto 0.11 X10*3/uL (0.00-0.03); Lymphocytes Absolute Auto 1.5 X10*3/uL (1.2-4.9); Lymphocytes Percent Auto 13.7 % (20-40); Mean Corpuscular HGB Conc 30.2 g/dl (31.0-36.0); Mean Corpuscular Volume 102.9 fL (80.0-98.0); Mean Platelet Volume 10.3 fL (9.4-12.4); Monocytes Percent Auto 8.6 % (2-11); NRBC Pct Auto 0.3 /100WBC (0.0-0.2); Neutrophils Absolute Auto 8.3 x10*3/uL (2.0-8.3); Platelet Count 215 X10*3/uL (160-400); Red Blood Count 2.77 X10*6/uL (4.60-5.80); White Blood Count 11.1 X10*3/uL (4.8-10.8)
[2022-02-07 13:44] LABS: Estimated Average Glucose 120 mg/dL; Hemoglobin A1c % 5.8 %
[2022-02-07 14:25] LABS: Alanine Aminotransferase 20 U/L (0-40); Albumin Level 4.3 g/dL (3.5-5.0); Alkaline Phosphatase 84 U/L (39-117); Anion Gap 19 (12-20); Aspartate Amino Transferase 20 U/L (5-37); Bilirubin Total 0.3 mg/dL (0.0-1.0); Blood Urea Nitrogen 54 mg/dL (9-16); Calcium 9.9 mg/dL (8.4-10.2); Carbon Dioxide 29 mmol/L (22-29); Chloride 94 mmol/L (96-108); Cholesterol 183 mg/dL; Estimated Glomerular Filt Rate 8; Glucose Random 115 mg/dL (60-115); Potassium 4.9 mmol/L (3.3-5.1); Sodium 137 mmol/L (135-145); Total Protein 7.3 g/dL (6.5-8.0)
[2022-02-07 14:40] LABS: Prostate Specific Antigen 1.21 ng/mL (<0.05-4.0)
== END 2022-02-07 11:52 | disposition home or self-care (01) ==
LOC: HO.LAB 11:51
PROVIDERS: PCP Internal Medicine; Visit Provider Internal Medicine
DX: Z12.5 Encounter for screening for malignant neoplasm of prostate (principal); J44.9 Chronic obstructive pulmonary disease, unspecified; K21.9 Gastro-esophageal reflux disease without esophagitis; I12.9 Hypertensive chronic kidney disease with stage 1 through stage 4 chronic kidney disease, or unspecified chronic kidney disease; N18.9 Chronic kidney disease, unspecified; E11.22 Type 2 diabetes mellitus with diabetic chronic kidney disease
CPT/HCPCS: 36415; 80053; 82465; 83036; 84153; 85025

== ENCOUNTER 2022-07-14 12:21 | Inpatient (IN) | payer OTHER, SELFPAY ==
[2022-07-14 12:37] VITALS: BP 154/68; PULSE 80; O2SAT 97
[2022-07-14 12:39] VITALS: BP 152/66; PULSE 78; RESP 18; TEMP 37.1; O2SAT 92; BMI 25.0
--- NOTE | 2022-07-14 12:45 | ED.GENADULT ---
HPI - General Adult General Chief complaint: General Medical Stated complaint: AMS,MISSED LAST 2 DIALYSIS PER EMS Time Seen by Provider: 07/14/22 12:45 Source: patient Mode of arrival: EMS Limitations: no limitations History of Present Illness HPI narrative: 62-year-old male sent to the emergency department by his [facility] out-reach coordinate she for noncompliance with his dialysis. The patient states that he gets dialyzed on Sunday, Sunday and Sunday. He told me that he missed dialysis on Sunday and today. The patient does have a history of paranoid schizophrenia. He told me that he felt uncomfortable getting dialysis from [facility] especially around [facility] therefore he did not go to his dialysis appointments. According to the [facility] case specialist, the patient has also had hematuria for 1 1/2 weeks He denied fever, chills, rhinorrhea, sore throat. He states he has an occasional cough. He denied shortness of breath or dyspnea on exertion. He denied nausea, vomiting and diarrhea. He states that he does make urine but he does not have any frequency urgency or dysuria. Related Data Home Medications Medication Instructions Recorded Confirmed albuterol sulfate 90 mcg/actuation 2 puff inhalation Q4-6H PRN 08/31/20 08/31/20 aerosol inhaler (ProAir HFA) Shortness Of Breath aspirin 81 mg tablet,delayed 81 mg PO DAILY 08/31/20 08/31/20 release cholecalciferol (vitamin D3) 125 125 mcg PO DAILY 08/31/20 08/31/20 mcg (5,000 unit) tablet (Vitamin D3) famotidine 20 mg tablet 20 mg PO BEDTIME 08/31/20 08/31/20 ferric citrate 210 mg iron tablet 210 mg PO TID 08/31/20 08/31/20 (Auryxia) fluticasone propionate 110 1 puff inhalation BID 08/31/20 08/31/20 mcg/actuation HFA aerosol inhaler (Flovent HFA) furosemide 80 mg tablet 80 mg PO DAILY 08/31/20 08/31/20 loperamide 2 mg capsule 2 mg PO TID PRN Diarrhea 08/31/20 08/31/20 metoprolol tartrate 50 mg tablet 25 mg PO BID 08/31/20 08/31/20 nicotine 14 mg/24 hr daily 1 patch transdermal Q24H 08/31/20 08/31/20 transdermal patch omega-3 fatty acids 1,000 mg PO DAILY 08/31/20 08/31/20 paliperidone 3 mg tablet,extended 3 mg PO QAM 08/31/20 08/31/20 release 24 hr perphenazine 4 mg tablet 4 mg PO DAILY 08/31/20 08/31/20 vitamin B complex and vitamin C 1 cap PO DAILY 08/31/20 08/31/20 no.20-folic acid 1 mg capsule ([place] Caps) cholecalciferol (vitamin D3) 125 125 mcg PO DAILY 01/13/21 mcg (5,000 unit) tablet dextromethorphan-guaifenesin 10 2 tab-cap PO Q6H PRN 01/13/21 mg-200 mg capsule (Robitussin Cough-Chest Congestion DM) famotidine 20 mg tablet 20 mg PO BEDTIME 01/13/21 loperamide 2 mg capsule mg PO 01/13/21 nicotine 14 mg/24 hr daily 1 patch transdermal DAILY 01/13/21 transdermal patch Previous Rx's Medication Instructions Recorded amlodipine 5 mg tablet 10 mg PO DAILY #30 tabs 09/03/20 azithromycin 250 mg tablet 250 mg PO Q24H #3 tabs 09/03/20 Allergies Allergy/AdvReac Type Severity Reaction Status Date / Time thioridazine [From MELLARIL] Allergy Unknown TONGUE Verified 05/04/21 10:08 SWELLING mellaril Allergy Severe anaphylaxis Uncoded 05/04/21 10:08 Review of Systems Review of Systems: Yes all other systems are reviewed and are negative [facility] Past Medical History [facility] Narrative: Past medical history: Hypertension, COPD on oxygen via nasal cannula, end-stage renal disease, dialyzed on Wednesdays and Fridays, paranoid schizophrenia. Medical History COVID-19 End stage renal disease HTN (hypertension) Social History Social History Alcohol intake: never Smoked in Last 30 Days: No Use of substances other than those prescribed or required for medical reasons: No Advance Directives: Yes Advance Directives on File: Yes Advance Directives Date on File: 08/31/20 service: No Current occupational status: disabled Physical Exam ED Vital Signs: Vital Signs - 24 hr 07/14/22 12:39 Temperature 98.8 F Pulse Rate 78 Respiratory Rate 18 Blood Pressure 152/66 H Pulse Oximetry 92 Oxygen Delivery Method Nasal Cannula BMI result Body Mass Index 25.0 Const General: cooperative and no acute distress Orientation/consciousness: oriented to person and oriented to place Limitations: no limitations HENMT Head: Yes normal to inspection, Yes normocephalic and Yes atraumatic Ears: external ears normal General nose exam: Normal external nose present Face and sinus: Yes normal facial exam Mouth: Normal oral and palatal mucosa present Throat: Yes posterior oropharynx normal Eyes General: appearance normal, both eyes and all related structures Pupils: Equal, round and reactive pupils present Neck Neck: Yes normal visual inspection, Yes no lymphadenopathy, Yes trachea midline and Yes supple Chest Chest palpation & inspection: normal inspection of the chest and normal palpation of entire chest wall Resp Effort & Inspection: normal respiratory effort and able to speak in complete sentences Auscultation: clear to auscultation bilaterally Cardio Rate: regular rate Rhythm: regular rhythm Heart sounds: S1 normal heart sound present, S2 normal heart sound present and no murmurs GI Inspection: Yes normal to inspection Palpation (GI): Soft to palpation, nontender and no guarding Auscultation: normal bowel sounds General: Yes no CVA tenderness Back/Spine/Pelvis Back: no CVA tenderness Skin General skin exam: no rashes or lesions noted Neuro General: oriented to person and oriented to place Cranial nerves: Yes CN's II-XII intact bilaterally and Yes Equal, round and reactive pupils present Cognition (Neuro): normal cognition Motor exam (neuro): 5/5 motor strength present throughout Extrem Other: Left upper arm AV fistula with good thrill and bruit General: Yes normal to inspection Psych Appearance: grossly normal Speech and movement: Normal speech and movement present Attitude: cooperative Thought content: Paranoid delusions present Course Course Course Narrative: 62-year-old male with a history of paranoid schizophrenia and end-stage renal disease dialyzed on Wednesdays and Fridays he missed dialysis on Sunday and Sunday (today) secondary to paranoid ideation. Patient was also reported to have hematuria for the 1 1/2 weeks. Vital signs were unremarkable with an O2 saturation of 92% on 4 L oxygen via nasal cannula. I did order laboratory evaluation EKG and chest x-ray two view. 15 10: Laboratory evaluation: Anemia with an H&H of 6 and 18.7 compared to 02/07/2022 with an H&H of 8.6 and 28.5. Patient refused rectal exam apply ordered occult stool testing. Potassium slightly elevated at 5.3. BUN and creatinine elevated 92 and 11.2. Troponin elevated 55.3 most likely secondary to renal disease. ProBNP elevated 1410 most likely related to renal disease. Chest x-ray: Two view, severe emphysema, no significant change compared to previous studies. The patient has missed his last 2 dialysis appointment secondary to his paranoid schizophrenia. I will discuss the patient's presentation with the covering minister, I believe the patient should be admitted to be dialyzed and also to get a psychiatric consult for his paranoid ideation. 1558: I did discuss the patient's presentation with the covering minister, Dr. Owen. He agreed that the patient needs to be admitted for dialysis which will be done tomorrow. He recommended that the patient get 2 units of packed red blood cells transfused tomorrow during dialysis therefore I did order type and screen and to units to be on hold. I will discuss admission with the covering hospitalist. Medical Decision Making Lab Data Result diagrams: 07/14/22 13:45 07/14/22 13:45 Labs: Lab Results 07/14/22 07/14/22 07/14/22 Range/Units 13:45 13:45 13:45 WBC 9.2 (4.8-10.8) X10*3/uL RBC 1.92 L D (4.60-5.80) X10*6/uL Hgb 6.0 L* D (14.0-18.0) g/dl Hct 18.7 L* D (42.0-52.0) % MCV 97.4 (80.0-98.0) fL MCH 31.3 (27.0-33.0) pg MCHC 32.1 (31.0-36.0) g/dl RDW 14.9 (11.0-16.0) % Plt Count 237 (160-400) X10*3/uL MPV 9.8 (9.4-12.4) fL Immature Gran % (Auto) 0.8 H (0.0-0.4) % Neut % (Auto) 83.1 H (45-73) % Lymph % (Auto) 7.4 L (20-40) % [place] % (Auto) 8.1 (2-11) % Eos % (Auto) 0.4 (0-4) % Baso % (Auto) 0.2 (0-2) % Lymph # (Auto) 0.7 L (1.2-4.9) X10*3/uL [place] # (Auto) 0.8 (0.1-1.2) X10*3/uL Eos # (Auto) 0.0 (0.0-0.4) X10*3/uL Baso # (Auto) 0.0 (0.0-0.2) X10*3/uL Abs Immat Gran (auto) 0.07 H (0.00-0.03) X10*3/uL Absolute Neuts (auto) 7.7 (2.0-8.3) x10*3/uL Absolute Nucleated RBC 0.000 (0.0-0.012) X10*3/uL Nucleated RBC % (auto) 0.0 (0.0-0.2) /100WBC PT 13.8 H (10.0-13.1) SEC INR 1.2 H (0.9-1.1) APTT 31.6 (26.0-36.4) SEC Sodium 132 L (135-145) mmol/L Potassium 5.3 H (3.3-5.1) mmol/L Chloride 90 L (96-108) mmol/L Carbon Dioxide 25 (22-29) mmol/L Anion Gap 22 H (12-20) BUN 92 H D (9-16) mg/dL Creatinine 11.02 H* (0.5-1.4) mg/dL Estim Creat Clear Calc 7.5 Estimated GFR 5 Random Glucose 126 H (60-115) mg/dL Calcium 9.3 D (8.4-10.2) mg/dL Total Bilirubin 0.5 (0.0-1.0) mg/dL AST 14 (5-37) U/L ALT 16 (0-40) U/L Alkaline Phosphatase 68 (39-117) U/L Troponin I High Sens (<3.5-35.0) ng/L B-Natriuretic Peptide (<100) pg/mL Total Protein 6.0 L (6.5-8.0) g/dL Albumin 3.5 (3.5-5.0) g/dL Lipase 51 (8-78) U/L Urine Color Urine Appearance Urine pH (5.0-9.0) Ur Specific [place] (1.005-1.025) Urine Protein (Neg-Trace) mg/dL Urine Glucose (UA) (Negative) mg/dL Urine Ketones (Negative) mg/dL Urine Blood (Negative) Urine Nitrite (Negative) Ur Leukocyte Esterase (Negative) Urine RBC (0-2) /HPF Urine WBC (0-5) /HPF Ur Squamous Epith Cells (0-2) /HPF Urine Bacteria (None Seen) Hyaline Casts (0-2) /LPF Ethyl Alcohol < 10 mg/dL COVID-19 (VIANCA) (Negative) COVID-19 Clin Com Influenza Type A (DELTA) (Negative) Influenza Type B (DELTA) (Negative) Influenza A & B Note 07/14/22 07/14/22 07/14/22 Range/Units 13:45 13:45 13:45 WBC (4.8-10.8) X10*3/uL RBC (4.60-5.80) X10*6/uL Hgb (14.0-18.0) g/dl Hct (42.0-52.0) % MCV (80.0-98.0) fL MCH (27.0-33.0) pg MCHC (31.0-36.0) g/dl RDW (11.0-16.0) % Plt Count (160-400) X10*3/uL MPV (9.4-12.4) fL Immature Gran % (Auto) (0.0-0.4) % Neut % (Auto) (45-73) % Lymph % (Auto) (20-40) % [place] % (Auto) (2-11) % Eos % (Auto) (0-4) % Baso % (Auto) (0-2) % Lymph # (Auto) (1.2-4.9) X10*3/uL [place] # (Auto) (0.1-1.2) X10*3/uL Eos # (Auto) (0.0-0.4) X10*3/uL Baso # (Auto) (0.0-0.2) X10*3/uL Abs Immat Gran (auto) (0.00-0.03) X10*3/uL Absolute Neuts (auto) (2.0-8.3) x10*3/uL Absolute Nucleated RBC (0.0-0.012) X10*3/uL Nucleated RBC % (auto) (0.0-0.2) /100WBC PT (10.0-13.1) SEC INR (0.9-1.1) APTT (26.0-36.4) SEC Sodium (135-145) mmol/L Potassium (3.3-5.1) mmol/L Chloride (96-108) mmol/L Carbon Dioxide (22-29) mmol/L Anion Gap (12-20) BUN (9-16) mg/dL Creatinine (0.5-1.4) mg/dL Estim Creat Clear Calc Estimated GFR Random Glucose (60-115) mg/dL Calcium (8.4-10.2) mg/dL Total Bilirubin (0.0-1.0) mg/dL AST (5-37) U/L ALT (0-40) U/L Alkaline Phosphatase (39-117) U/L Troponin I High Sens (<3.5-35.0) ng/L B-Natriuretic Peptide 1410 H (<100) pg/mL Total Protein (6.5-8.0) g/dL Albumin (3.5-5.0) g/dL Lipase (8-78) U/L Urine Color Urine Appearance Urine pH (5.0-9.0) Ur Specific [place] (1.005-1.025) Urine Protein (Neg-Trace) mg/dL Urine Glucose (UA) (Negative) mg/dL Urine Ketones (Negative) mg/dL Urine Blood (Negative) Urine Nitrite (Negative) Ur Leukocyte Esterase (Negative) Urine RBC (0-2) /HPF Urine WBC (0-5) /HPF Ur Squamous Epith Cells (0-2) /HPF Urine Bacteria (None Seen) Hyaline Casts (0-2) /LPF Ethyl Alcohol mg/dL COVID-19 (VIANCA) Negative (Negative) COVID-19 Clin Com See Note Influenza Type A (DELTA) Negative (Negative) Influenza Type B (DELTA) Negative (Negative) Influenza A & B Note See Note 07/14/22 07/14/22 Range/Units 13:45 15:53 WBC (4.8-10.8) X10*3/uL RBC (4.60-5.80) X10*6/uL Hgb (14.0-18.0) g/dl Hct (42.0-52.0) % MCV (80.0-98.0) fL MCH (27.0-33.0) pg MCHC (31.0-36.0) g/dl RDW (11.0-16.0) % Plt Count (160-400) X10*3/uL MPV (9.4-12.4) fL Immature Gran % (Auto) (0.0-0.4) % Neut % (Auto) (45-73) % Lymph % (Auto) (20-40) % [place] % (Auto) (2-11) % Eos % (Auto) (0-4) % Baso % (Auto) (0-2) % Lymph # (Auto) (1.2-4.9) X10*3/uL [place] # (Auto) (0.1-1.2) X10*3/uL Eos # (Auto) (0.0-0.4) X10*3/uL Baso # (Auto) (0.0-0.2) X10*3/uL Abs Immat Gran (auto) (0.00-0.03) X10*3/uL Absolute Neuts (auto) (2.0-8.3) x10*3/uL Absolute Nucleated RBC (0.0-0.012) X10*3/uL Nucleated RBC % (auto) (0.0-0.2) /100WBC PT (10.0-13.1) SEC INR (0.9-1.1) APTT (26.0-36.4) SEC Sodium (135-145) mmol/L Potassium (3.3-5.1) mmol/L Chloride (96-108) mmol/L Carbon Dioxide (22-29) mmol/L Anion Gap (12-20) BUN (9-16) mg/dL Creatinine (0.5-1.4) mg/dL Estim Creat Clear Calc Estimated GFR Random Glucose (60-115) mg/dL Calcium (8.4-10.2) mg/dL Total Bilirubin (0.0-1.0) mg/dL AST (5-37) U/L ALT (0-40) U/L Alkaline Phosphatase (39-117) U/L Troponin I High Sens 55.3 H (<3.5-35.0) ng/L B-Natriuretic Peptide (<100) pg/mL Total Protein (6.5-8.0) g/dL Albumin (3.5-5.0) g/dL Lipase (8-78) U/L Urine Color RED Urine Appearance Hazy Urine pH 7.5 (5.0-9.0) Ur Specific [place] 1.015 (1.005-1.025) Urine Protein 100 (2+) H (Neg-Trace) mg/dL Urine Glucose (UA) 100 H (Negative) mg/dL Urine Ketones Negative (Negative) mg/dL Urine Blood Large (3+) H (Negative) Urine Nitrite Negative (Negative) Ur Leukocyte Esterase Moderate (2+) H (Negative) Urine RBC >20 H (0-2) /HPF Urine WBC 11-20 (0-5) /HPF Ur Squamous Epith Cells 0-2 (0-2) /HPF Urine Bacteria 1+ (None Seen) Hyaline Casts 0-2 (0-2) /LPF Ethyl Alcohol mg/dL COVID-19 (VIANCA) (Negative) COVID-19 Clin Com Influenza Type A ([place]TA) (Negative) Influenza Type B ([place]TA) (Negative) Influenza A & B Note Critical Care Time Critical Care Time Total Critical Care Time: 30 Attestation: Critical Care: The patient was critically ill with a high probability of imminent or life threatening deterioration. I spent greater than 30 minutes of discontinuous time evaluating the patient,delivering critical care at the bedside, discussing and evaluating pertinent data with consultants. Critical care time does not include time spent performing separately billable procedures or teaching. Total time spent performing critical care was 30 minutes. Discharge Plan Discharge Patient Disposition: Admitted As Inpatient
--- NOTE | 2022-07-14 12:53 | PC.NURSE ---
yen gay ([facility], office [phone], after 5pm [phone]) called [facility] [place] was updated on pt status. yen(rn) states that missed dialysis (at [facility] [place] [facility]) on Sunday and refused dialysis today. hematuria x 11/2 wk and increased confusion with pt. aware.
--- NOTE | 2022-07-14 13:10 | ECG_ITS ---
Test Reason : WEAKNESS,ESRD,EVALUATE T-WAVE Blood Pressure : / mmHG Vent. Rate : 073 BPM Atrial Rate : 073 BPM P-R Int : 158 ms QRS Dur : 080 ms QT Int : 362 ms P-R-T Axes : 065 012 073 degrees QTc Int : 398 ms Normal sinus rhythm Normal ECG When compared with ECG of 01-SEP-2020 07:52, No significant change was found Referred By: Braeden De Guzman Electronically Signed By:MARIELLE JONES MD
--- NOTE | 2022-07-14 13:25 | PC.NURSE ---
pt is a/o x 4 no sob/joe noted lungs - slight exp wheezing/crackles noted. heart sounds regular. abd soft and non-tender, bs + x 4 quads. fistula to l arm. no edema noted. pt seen by md. pt aware of plan of care.
[2022-07-14 13:52] LABS: MANUAL DIFF FLAG NO
[2022-07-14 14:02] LABS: INTERNATIONAL NORM RATIO 1.2 (0.9-1.1); Prothrombin Time 13.8 SEC (10.0-13.1)
[2022-07-14 14:05] LABS: Basophils Percent Auto 0.2 % (0-2); Eosinophils Percent Auto 0.4 % (0-4); Imm Gran Abs Auto 0.07 X10*3/uL (0.00-0.03); Imm Gran Pct Auto 0.8 % (0.0-0.4); Lymphocytes Absolute Auto 0.7 X10*3/uL (1.2-4.9); Lymphocytes Percent Auto 7.4 % (20-40); Mean Corpuscular HGB Conc 32.1 g/dl (31.0-36.0); Mean Corpuscular Hemoglobin 31.3 pg (27.0-33.0); Mean Corpuscular Volume 97.4 fL (80.0-98.0); Mean Platelet Volume 9.8 fL (9.4-12.4); Monocytes Absolute Auto 0.8 X10*3/uL (0.1-1.2); Monocytes Percent Auto 8.1 % (2-11); Neutrophils Absolute Auto 7.7 x10*3/uL (2.0-8.3); Neutrophils Percent Auto 83.1 % (45-73); Partial Thromboplastin Time 31.6 SEC (26.0-36.4); Platelet Count 237 X10*3/uL (160-400); Red Blood Count 1.92 X10*6/uL (4.60-5.80); Red Cell Distribution Width 14.9 % (11.0-16.0)
[2022-07-14 14:10] LABS: Hematocrit 18.7 % (42.0-52.0)
[2022-07-14 14:11] LABS: White Blood Count 9.2 X10*3/uL (4.8-10.8)
[2022-07-14 14:15] LABS: COVID-19 Test Negative (Negative); IDNOW Serial# BCCEAD1C; Influenza A Negative (Negative); Influenza B2 Negative (Negative)
[2022-07-14 14:20] LABS: B Type Natriuretic Peptide 1410 pg/mL (<100)
[2022-07-14 14:21] LABS: Alanine Aminotransferase 16 U/L (0-40); Albumin Level 3.5 g/dL (3.5-5.0); Alkaline Phosphatase 68 U/L (39-117); Aspartate Amino Transferase 14 U/L (5-37); Bilirubin Total 0.5 mg/dL (0.0-1.0); Blood Urea Nitrogen 92 mg/dL (9-16); Calcium 9.3 mg/dL (8.4-10.2); Creatinine Clr Calc Pharmacy 7.5; Estimated Glomerular Filt Rate 5; Ethanol < 10 mg/dL; Glucose Random 126 mg/dL (60-115); Lipase 51 U/L (8-78); Troponin-I High Sensitivity 55.3 ng/L (<3.5-35.0)
[2022-07-14 14:26] LABS: Anion Gap 22 (12-20); Carbon Dioxide 25 mmol/L (22-29); Chloride 90 mmol/L (96-108); Potassium 5.3 mmol/L (3.3-5.1); Sodium 132 mmol/L (135-145)
[2022-07-14 16:07] LABS: Appearance Urine Hazy; Color Urine RED; Glucose Urine UA 100 mg/dL (Negative); Leukocyte Esterase Urine Moderate (2+) (Negative); Nitrite Urine Negative (Negative); PH 7.5 (5.0-9.0); Specific Gravity - Urine 1.015 (1.005-1.025); UMIC TRIGGER UACC YES; Urine Blood Large (3+) (Negative); Urine Ketones Negative (Negative); Urine Protein 100 (2+) mg/dL (Neg-Trace)
[2022-07-14 16:09] LABS: Bacteria Urine 1+ (None Seen); Hyaline Casts Urine 0-2 /LPF (0-2); RBC Urine >20 /HPF (0-2); Squamous Epithelial Cell Urine 0-2 /HPF (0-2); UACC Culture Trigger YES
[2022-07-14 16:16] LABS: Amphetamine Screen Urine Not Detected (Not Detect); Barbiturates, Urine Not Detected (Not Detect); Benzodiazepines Screen Urine Not Detected (Not Detect); Cannabinoid Screen Urine Not Detected (Not Detect); Cocaine Screen Urine Not Detected (Not Detect); Fentanyl, urine Not Detected (Not Detect); Opiate Screen Urine Not Detected (Not Detect); Phencyclidine Screen Urine Not Detected (Not Detect)
--- NOTE | 2022-07-14 17:15 | PHA.MEDREC ---
Pharmacy Consult ? Medication Reconciliation Pharmacy has completed the medication reconciliation. patient med list in chart and claim history used
--- NOTE | 2022-07-14 17:19 | P.HPHOSP_ITS ---
History of Present Illness Date of Service: 07/14/22 Chief Complaint: missed dialysis 62-year-old male with paranoia schizophrenia, hypertension, end-stage renal disease on dialysis Sunday he has missed the last dialysis sections because he has been hearing voices telling him not to go to dialysis. He has no signs of fluid overload or shortness of breath. His potassium is 5.3. His hemoglobin is 6 and hematocrit of 18. He declined rectal exam Karla deny any use blood in the stool-- He has anemia of chronic disease his last hematocrit was 28 back in January of this year. Nephrology has been contacted and they advised dialysis tomorrow with a 2 units of RBC during dialysis. Review of Systems Review of Systems: Gen: no fever Resp: no sob, no cough CV: no chest, no MATHEW, no leg edema GI: No n/v, no abd pain Neuro: No confusion Yes all other systems are reviewed and are negative [facility] Medical History COVID-19 End stage renal disease HTN (hypertension) Social History Household Members: None Household Members Other:: self Housing: Apartment Do you presently have visiting nurse or other home services: Yes Alcohol intake: never Patient Tobacco Use Status: Former Tobacco user Tobacco use type: Cigarette Smoked in Last 30 Days: No e-Cigarette/Vaping Use: Never Used Patient Interested in Nicotine Replacement: No Patient Given Instructions on How to Stop Smoking: No Second Hand Smoke Exposure: No Use of substances other than those prescribed or required for medical reasons: No Currently Displaying Signs/Symptoms of Drug Intoxication Withdrawal: No Any prior treatment program specific to substance use: No Have you been hit, kicked, punched, or otherwise hurt by someone within the past year? If so, by whom?: No Do you feel safe in your current relationship?: No Current Relationship Is there a partner from a previous relationship who is making you feel unsafe now?: No Are you made to feel afraid or neglected: No Advance Directives: Yes Advance Directives on File: Yes Advance Directives Date on File: 08/31/20 Do you have thoughts of harming others: None Do you have a plan to hurt others: No Plan Recently lost weight without trying: No How much weight loss: Not applicable Eating poorly because of decreased appetite: No Nutrition screen score: 0 Nutrition Risks: No Nutritional Risk Poor oral hygiene: No service: No Current occupational status: disabled Meds Allergies Allergy/AdvReac Type Severity Reaction Status Date / Time thioridazine [From MELLARIL] Allergy Unknown TONGUE Verified 05/04/21 10:08 SWELLING mellaril Allergy Severe anaphylaxis Uncoded 05/04/21 10:08 Home Medications Medication Instructions Recorded Confirmed Last Taken Type albuterol sulfate 90 mcg/actuation 2 puff inhalation Q4-6H PRN 08/31/20 07/14/22 Unknown History aerosol inhaler (ProAir HFA) Shortness Of Breath aspirin 81 mg tablet,delayed 81 mg PO DAILY 08/31/20 07/14/22 Unknown History release famotidine 20 mg tablet 20 mg PO BEDTIME 08/31/20 07/14/22 Unknown History ferric citrate 210 mg iron tablet 3 tab PO TID 08/31/20 07/14/22 Unknown History (Auryxia) fluticasone propionate 110 1 puff inhalation BID 08/31/20 07/14/22 Unknown History mcg/actuation HFA aerosol inhaler (Flovent HFA) furosemide 80 mg tablet 80 mg PO DAILY 08/31/20 07/14/22 Unknown History loperamide 2 mg capsule 2 mg PO TID PRN Diarrhea 08/31/20 07/14/22 Unknown History metoprolol tartrate 50 mg tablet 25 mg PO BID 08/31/20 07/14/22 Unknown History paliperidone 3 mg tablet,extended 3 mg PO DAILY 08/31/20 07/14/22 Unknown History release 24 hr perphenazine 4 mg tablet 4 mg PO DAILY 08/31/20 07/14/22 Unknown History vitamin B complex and vitamin C 1 cap PO DAILY 08/31/20 07/14/22 Unknown History no.20-folic acid 1 mg capsule (Katy Caps) cholecalciferol (vitamin D3) 125 125 mcg PO DAILY 01/13/21 07/14/22 Unknown History mcg (5,000 unit) tablet famotidine 20 mg tablet 20 mg PO BEDTIME 01/13/21 07/14/22 Unknown History nicotine 14 mg/24 hr daily 1 patch transdermal DAILY PRN 01/13/21 07/14/22 Unknown History transdermal patch Nicotine Cravings amlodipine 5 mg tablet 5 mg PO DAILY 07/14/22 07/14/22 Unknown History dextromethorphan-guaifenesin 10 10 ml PO Q4H PRN Cough 07/14/22 07/14/22 Unknown History mg-100 mg/5 mL oral syrup midodrine 5 mg tablet 5 mg PO MOWEFR@0900,1800 07/14/22 07/14/22 Unknown History multivitamin 1 tab PO DAILY 07/14/22 07/14/22 Unknown History omega-3 fatty acids 1,000 mg 1 cap PO BID 07/14/22 07/14/22 Unknown History capsule Physical Exam Vital Signs and Narrative: Vital Signs: Last Vital Signs Temp 98.8 F 07/14/22 12:39 Pulse 78 07/14/22 12:39 Resp 18 07/14/22 12:39 BP 152/66 H 07/14/22 12:39 Pulse Ox 92 07/14/22 12:39 O2 Del Method 07/14/22 12:39 Oxygen Flow Rate 4 07/14/22 12:39 BMI result Body Mass Index 25.0 Const: Other: Constitutional: Alert, in no distress, Mental Status: Oriented to person, place and time. Eyes: Pupils are equal, round and reactive to light. Ear, Nose and Throat: Oropharynx clear, mucous membranes moist. Ears and nose without eformities. Respiratory: Clear to auscultation. No wheezing, rales or rhonchi. Cardiovascular: S1 S2 regular. No murmurs, rubs or gallops. no leg edema Gastrointestinal: Abdomen soft, non-tender, non-distended. Normal bowel sounds.? Neurologic: Cranial nerves II-XII grossly intact. No focal neurological deficits. Moves all extremities spontaneously.? Skin: No rashes or lesions.? Musculoskeletal: No cyanosis or clubbing. Psychiatric: Paranoid Results Labs CBC and Chem 7: 07/15/22 05:48 07/15/22 05:48 Labs: Laboratory Results - last 24 hr 07/14/22 07/14/22 07/14/22 13:45 13:45 13:45 MCV 97.4 MCH 31.3 MCHC 32.1 RDW 14.9 Plt Count 237 MPV 9.8 Immature Gran % (Auto) 0.8 H Neut % (Auto) 83.1 H Lymph % (Auto) 7.4 L [place] % (Auto) 8.1 Eos % (Auto) 0.4 Baso % (Auto) 0.2 Lymph # (Auto) 0.7 L [place] # (Auto) 0.8 Eos # (Auto) 0.0 Baso # (Auto) 0.0 Abs Immat Gran (auto) 0.07 H Absolute Neuts (auto) 7.7 Absolute Nucleated RBC 0.000 Nucleated RBC % (auto) 0.0 PT 13.8 H INR 1.2 H APTT 31.6 Anion Gap 22 H Estim Creat Clear Calc 7.5 Estimated GFR 5 Random Glucose 126 H Calcium 9.3 D Total Bilirubin 0.5 AST 14 ALT 16 Alkaline Phosphatase 68 Troponin I High Sens B-Natriuretic Peptide Total Protein 6.0 L Albumin 3.5 Lipase 51 Urine Color Urine Appearance Urine pH Ur Specific [place] Urine Protein Urine Glucose (UA) Urine Ketones Urine Blood Urine Nitrite Ur Leukocyte Esterase Urine RBC Urine WBC Ur Squamous Epith Cells Urine Bacteria Hyaline Casts Urine Opiates Screen Urine Fentanyl Screen Ur Barbiturates Screen Ur Phencyclidine Scrn Ur Amphetamines Screen U Benzodiazepines Scrn Urine Cocaine Screen U Marijuana (THC) Screen Ethyl Alcohol < 10 COVID-19 (VIANCA) COVID-19 Clin Com Influenza Type A (DELTA) Influenza Type B (DELTA) Influenza A & B Note 07/14/22 07/14/22 07/14/22 13:45 13:45 13:45 MCV MCH MCHC RDW Plt Count MPV Immature Gran % (Auto) Neut % (Auto) Lymph % (Auto) [place] % (Auto) Eos % (Auto) Baso % (Auto) Lymph # (Auto) [place] # (Auto) Eos # (Auto) Baso # (Auto) Abs Immat Gran (auto) Absolute Neuts (auto) Absolute Nucleated RBC Nucleated RBC % (auto) PT INR APTT Anion Gap Estim Creat Clear Calc Estimated GFR Random Glucose Calcium Total Bilirubin AST ALT Alkaline Phosphatase Troponin I High Sens B-Natriuretic Peptide 1410 H Total Protein Albumin Lipase Urine Color Urine Appearance Urine pH Ur Specific [place] Urine Protein Urine Glucose (UA) Urine Ketones Urine Blood Urine Nitrite Ur Leukocyte Esterase Urine RBC Urine WBC Ur Squamous Epith Cells Urine Bacteria Hyaline Casts Urine Opiates Screen Urine Fentanyl Screen Ur Barbiturates Screen Ur Phencyclidine Scrn Ur Amphetamines Screen U Benzodiazepines Scrn Urine Cocaine Screen U Marijuana (THC) Screen Ethyl Alcohol COVID-19 (VIANCA) Negative COVID-19 Clin Com See Note Influenza Type A (DELTA) Negative Influenza Type B ([place]TA) Negative Influenza A & B Note See Note 07/14/22 07/14/22 07/14/22 13:45 15:53 15:53 MCV MCH MCHC RDW Plt Count MPV Immature Gran % (Auto) Neut % (Auto) Lymph % (Auto) [place] % (Auto) Eos % (Auto) Baso % (Auto) Lymph # (Auto) [place] # (Auto) Eos # (Auto) Baso # (Auto) Abs Immat Gran (auto) Absolute Neuts (auto) Absolute Nucleated RBC Nucleated RBC % (auto) PT INR APTT Anion Gap Estim Creat Clear Calc Estimated GFR Random Glucose Calcium Total Bilirubin AST ALT Alkaline Phosphatase Troponin I High Sens 55.3 H B-Natriuretic Peptide Total Protein Albumin Lipase Urine Color RED Urine Appearance Hazy Urine pH 7.5 Ur Specific [place] 1.015 Urine Protein 100 (2+) H Urine Glucose (UA) 100 H Urine Ketones Negative Urine Blood Large (3+) H Urine Nitrite Negative Ur Leukocyte Esterase Moderate (2+) H Urine RBC >20 H Urine WBC 11-20 Ur Squamous Epith Cells 0-2 Urine Bacteria 1+ Hyaline Casts 0-2 Urine Opiates Screen Not Detected Urine Fentanyl Screen Not Detected Ur Barbiturates Screen Not Detected Ur Phencyclidine Scrn Not Detected Ur Amphetamines Screen Not Detected U Benzodiazepines Scrn Not Detected Urine Cocaine Screen Not Detected U Marijuana (THC) Screen Not Detected Ethyl Alcohol COVID-19 (VIANCA) COVID-19 [employer] Com Influenza Type A (DELTA) Influenza Type B ([place]TA) Influenza A & B Note Assessment and Plan (1) Non-compliance with renal dialysis: Status: Acute (2) Anemia: Status: Acute (3) Chronic paranoid schizophrenia: Status: Acute (4) HTN (hypertension): Status: Acute Plan 62-year-old male with hypertension, paranoid schizophrenia, end-stage renal disease, and anemia of chronic disease who presents after missing multiple dialysis and is found to be more anemic than usual. 1/ESRD-- No fluid overload. Plan for dialysis tomorrow 2/ Acute on chronic anemia with no evidence of active bleed. Transfuse 2 units tomorrow during dialysis and Nephrology to make a recommendation on November crit - stool occult blood if the patient is agreeable 3/ hypertension-- resume home med once med rec is done 4/ paranoid schizophrenia-- psych consult DVT-- no heparin or Lovenox given the profound anemia. Use compression devices full code admission to spend 2 midnights for management of her profound anemia, end-stage renal disease needing urgent dialysis in a schizophrenic pt not grasping the importance of going to [facility] Quality Stroke Does the patient have a stroke diagnosis?: No VTE Prior VTE?: No VTE Risk Level:: Medical - low VTE Device Contraindication: N/A - Device Ordered VTE Drug Contraindication: Treatment Not Tolerated
[2022-07-14 19:48] VITALS: BP 164/70; PULSE 82; RESP 18; TEMP 37.1; O2SAT 99
[2022-07-14] MEDS: guaiFENesin DM 200/20/10 ML 10 ML SYRUP PO (19:49)
[2022-07-14] MEDS: Famotidine 20 MG TABLET PO (19:49)
[2022-07-14] MEDS: Metoprolol Tartrate 25 MG TABLET PO (19:49)
[2022-07-14 19:55] VITALS: BMI 25.4
[2022-07-14] MEDS: 0.9 % Sodium Chloride Flush 3 ML SYRINGE IVFLUSH (20:13)
[2022-07-15] VITALS (7 sets, daily range): BP systolic 96–183; BP diastolic 61–80; PULSE 78–86; RESP 17–20; TEMP 36.2–37.2; O2SAT 85–97
[2022-07-15] MEDS: guaiFENesin DM 200/20/10 ML 10 ML SYRUP PO ×3 (02:12→22:32)
[2022-07-15 06:09] LABS: MANUAL DIFF FLAG NO
[2022-07-15 06:28] LABS: Anion Gap 23 (12-20); Blood Urea Nitrogen 103 mg/dL (9-16); Calcium 9.1 mg/dL (8.4-10.2); Carbon Dioxide 24 mmol/L (22-29); Chloride 91 mmol/L (96-108); Glucose Random 96 mg/dL (60-115); Potassium 5.9 mmol/L (3.3-5.1); Sodium 132 mmol/L (135-145)
[2022-07-15 06:31] LABS: Basophils Percent Auto 0.2 % (0-2); Eosinophils Absolute Auto 0.1 X10*3/uL (0.0-0.4); Eosinophils Percent Auto 0.6 % (0-4); Imm Gran Abs Auto 0.08 X10*3/uL (0.00-0.03); Imm Gran Pct Auto 0.9 % (0.0-0.4); Lymphocytes Absolute Auto 0.7 X10*3/uL (1.2-4.9); Lymphocytes Percent Auto 7.6 % (20-40); Mean Corpuscular HGB Conc 31.3 g/dl (31.0-36.0); Mean Corpuscular Hemoglobin 30.9 pg (27.0-33.0); Mean Platelet Volume 9.9 fL (9.4-12.4); Monocytes Absolute Auto 0.8 X10*3/uL (0.1-1.2); Monocytes Percent Auto 8.2 % (2-11); Neutrophils Absolute Auto 7.7 x10*3/uL (2.0-8.3); Neutrophils Percent Auto 82.5 % (45-73); Platelet Count 229 X10*3/uL (160-400); Red Blood Count 1.94 X10*6/uL (4.60-5.80); White Blood Count 9.4 X10*3/uL (4.8-10.8)
[2022-07-15 06:34] LABS: Estimated Glomerular Filt Rate 4
--- NOTE | 2022-07-15 06:59 | P.CONNP_ITS ---
History of Present Illness Reason for Consult Consult date: 07/15/22 Reason for consult: ESRD on dialysis Chief Complaint Chief complaint: missed dialysis, acute anemia, acute psychosis Review of Systems Review of Systems Gen: no fever Resp: no sob, no cough CV: no chest, no MATHEW, no leg edema GI: No n/v, no abd pain Neuro: No confusion Yes all other systems are reviewed and are negative PMFSH Past Medical History Medical History COVID-19 End stage renal disease HTN (hypertension) Social History Social History Household Members: None Household Members Other:: self Housing: Apartment Do you presently have visiting nurse or other home services: Yes Alcohol intake: never Patient Tobacco Use Status: Former Tobacco user Tobacco use type: Cigarette Smoked in Last 30 Days: No e-Cigarette/Vaping Use: Never Used Patient Interested in Nicotine Replacement: No Patient Given Instructions on How to Stop Smoking: No Second Hand Smoke Exposure: No Use of substances other than those prescribed or required for medical reasons: No Currently Displaying Signs/Symptoms of Drug Intoxication Withdrawal: No Any prior treatment program specific to substance use: No Have you been hit, kicked, punched, or otherwise hurt by someone within the past year? If so, by whom?: No Do you feel safe in your current relationship?: No Current Relationship Is there a partner from a previous relationship who is making you feel unsafe now?: No Are you made to feel afraid or neglected: No Advance Directives: Yes Advance Directives on File: Yes Advance Directives Date on File: 08/31/20 Do you have thoughts of harming others: None Do you have a plan to hurt others: No Plan Recently lost weight without trying: No How much weight loss: Not applicable Eating poorly because of decreased appetite: No Nutrition screen score: 0 Nutrition Risks: No Nutritional Risk Poor oral hygiene: No service: No Current occupational status: disabled Meds Allergies Allergy/AdvReac Type Severity Reaction Status Date / Time thioridazine [From MELLARIL] Allergy Unknown TONGUE Verified 05/04/21 10:08 SWELLING mellaril Allergy Severe anaphylaxis Uncoded 05/04/21 10:08 Active Medications: Current Medications Acetaminophen (Acetaminophen 325 Mg Tablet) 650 mg PO Q6H PRN PRN Reason: Pain, Mild (Pain Scale 1-3) Albuterol Sulfate (Albuterol Sulfate 90 Mcg 8 Gm Inhaler) 2 puff INHALE Q4H PRN PRN Reason: Shortness Of Breath Amlodipine Besylate (Amlodipine Besylate 5 Mg Tablet) 5 mg PO DAILY [facility]; Protocol Aspirin (Aspirin Enteric Coated 81 Mg Tablet.Dr) 81 mg PO DAILY [facility] Famotidine (Famotidine 20 Mg Tablet) 20 mg PO BEDTIME [facility] Last Admin: 07/14/22 19:49 Dose: 20 mg Fluticasone Propionate (Fluticasone Propionate 100 Mcg Blst.W.Dev) 1 puff INHALE RBID [facility] Last Admin: 07/14/22 18:48 Dose: Not Given Guaifenesin/Dextromethorphan (Guaifenesin Dm 200/20/10 Ml 10 Ml Syrup) 10 ml PO Q4H PRN PRN Reason: Cough Last Admin: 07/15/22 02:12 Dose: 10 ml Loperamide HCl (Loperamide Hcl 2 Mg Capsule) 2 mg PO TID PRN PRN Reason: Diarrhea Magnesium Hydroxide (Milk Of Magnesia 30 Ml Oral.Susp) 30 ml PO DAILY PRN PRN Reason: Constipation Melatonin (Melatonin 3 Mg Tablet) 6 mg PO BEDTIME PRN PRN Reason: Insomnia Metoprolol Tartrate (Metoprolol Tartrate 25 Mg Tablet) 25 mg PO BID [facility]; Protocol Last Admin: 07/14/22 19:49 Dose: 25 mg Midodrine (Midodrine Hcl 5 Mg Tablet) 5 mg PO MOWEFR@0900,1800 [facility] Last Admin: 07/14/22 19:47 Dose: Not Given Multivitamins/Vitamin C (Multivitamin Tablet) 1 tab PO DAILY [facility] Nicotine (Nicotine 14 Mg Patch.Td24) 14 mg TRANSDERMA DAILY PRN PRN Reason: Nicotine Cravings Non-Formulary Medication (Ferric Citrate [Auryxia]) 3 tab PO TID [facility] Ondansetron HCl (Ondansetron Hcl 4 Mg/2 Ml Vial) 4 mg IVPUSH Q8H PRN PRN Reason: Nausea and Vomiting Paliperidone (Paliperidone Er 3 Mg Tab.Er.24) 3 mg PO DAILY [facility] Perphenazine (Perphenazine 4 Mg Tablet) 4 mg PO DAILY [facility] Sodium Chloride (0.9 % Sodium Chloride Flush 3 Ml Syringe) 3 ml IVFLUSH QSHIFT [facility] Last Admin: 07/14/22 20:13 Dose: 3 ml Vitamin D (Cholecalciferol (Vitamin D3) 25 Mcg Tablet) 125 mcg PO DAILY [facility] Home Medications Medication Instructions Recorded Confirmed Last Taken Type albuterol sulfate 90 mcg/actuation 2 puff inhalation Q4-6H PRN 08/31/20 07/14/22 Unknown History aerosol inhaler (ProAir HFA) Shortness Of Breath aspirin 81 mg tablet,delayed 81 mg PO DAILY 08/31/20 07/14/22 Unknown History release famotidine 20 mg tablet 20 mg PO BEDTIME 08/31/20 07/14/22 Unknown History ferric citrate 210 mg iron tablet 3 tab PO TID 08/31/20 07/14/22 Unknown History (Auryxia) fluticasone propionate 110 1 puff inhalation BID 08/31/20 07/14/22 Unknown Histo ry mcg/actuation HFA aerosol inhaler (Flovent HFA) furosemide 80 mg tablet 80 mg PO DAILY 08/31/20 07/14/22 Unknown History loperamide 2 mg capsule 2 mg PO TID PRN Diarrhea 08/31/20 07/14/22 Unknown History metoprolol tartrate 50 mg tablet 25 mg PO BID 08/31/20 07/14/22 Unknown History paliperidone 3 mg tablet,extended 3 mg PO DAILY 08/31/20 07/14/22 Unknown History release 24 hr perphenazine 4 mg tablet 4 mg PO DAILY 08/31/20 07/14/22 Unknown History vitamin B complex and vitamin C 1 cap PO DAILY 08/31/20 07/14/22 Unknown History no.20-folic acid 1 mg capsule ([place] Caps) cholecalciferol (vitamin D3) 125 125 mcg PO DAILY 01/13/21 07/14/22 Unknown H istory mcg (5,000 unit) tablet famotidine 20 mg tablet 20 mg PO BEDTIME 01/13/21 07/14/22 Unknown History nicotine 14 mg/24 hr daily 1 patch transdermal DAILY PRN 01/13/21 07/14/22 Unknown History transdermal patch Nicotine Cravings amlodipine 5 mg tablet 5 mg PO DAILY 07/14/22 07/14/22 Unknown History dextromethorphan-guaifenesin 10 10 ml PO Q4H PRN Cough 07/14/22 07/14/22 Unknown History mg-100 mg/5 mL oral syrup midodrine 5 mg tablet 5 mg PO MOWEFR@0900,1800 07/14/22 07/14/22 Unknown History multivitamin 1 tab PO DAILY 07/14/22 07/14/22 Unknown History omega-3 fatty acids 1,000 mg 1 cap PO BID 07/14/22 07/14/22 Unknown History capsule Physical Exam Vital Signs: Last Vital Signs Temp 98.4 F 07/15/22 04:00 Pulse 78 07/15/22 04:00 Resp 20 07/15/22 04:00 BP 183/80 H 07/15/22 04:00 Pulse Ox 93 07/15/22 04:00 O2 Del Method 07/15/22 04:00 O2 Flow Rate 3 07/15/22 04:00 Oxygen Flow Rate 4 07/14/22 12:39 BMI result Body Mass Index 25.4 Const Other: Constitutional: Alert, in no distress, Mental Status: Oriented to person, place and time. Eyes: Pupils are equal, round and reactive to light. Ear, Nose and Throat: Oropharynx clear, mucous membranes moist. Ears and nose without eformities. Respiratory: Clear to auscultation. No wheezing, rales or rhonchi. Cardiovascular: S1 S2 regular. No murmurs, rubs or gallops. no leg edema Gastrointestinal: Abdomen soft, non-tender, non-distended. Normal bowel sounds.? Neurologic: Cranial nerves II-XII grossly intact. No focal neurological deficits. Moves all extremities spontaneously.? Skin: No rashes or lesions.? Musculoskeletal: No cyanosis or clubbing. Psychiatric: Paranoid General: cooperative and no acute distress Orientation/consciousness: oriented to person and oriented to place Limitations: no limitations HEENT Head: Yes normal to inspection, Yes normocephalic and Yes atraumatic Ears: external ears normal General nose exam: Normal external nose present Face and sinus: Yes normal facial exam Mouth: Normal oral and palatal mucosa present Throat: Yes posterior oropharynx normal Eyes General: appearance normal, both eyes and all related structures Pupils: Equal, round and reactive pupils present Neck Neck: Yes normal visual inspection, Yes no lymphadenopathy, Yes trachea midline and Yes supple Chest Chest palpation & inspection: normal inspection of the chest and normal palpation of entire chest wall Resp Effort & Inspection: normal respiratory effort and able to speak in complete sentences Auscultation: clear to auscultation bilaterally Cardio Rate: regular rate Rhythm: regular rhythm Heart sounds: S1 normal heart sound present, S2 normal heart sound present and no murmurs GI Inspection: Yes normal to inspection Palpation (GI): Soft to palpation, nontender and no guarding Auscultation: normal bowel sounds General: Yes no CVA tenderness Back/Spine/Pelvis Back: no CVA tenderness Skin General skin exam: no rashes or lesions noted Neuro General: oriented to person and oriented to place Cranial nerves: Yes CN's II-XII intact bilaterally and Yes Equal, round and reactive pupils present Cognition (Neuro): normal cognition Motor exam (neuro): 5/5 motor strength present throughout Extrem Other: Left upper arm AV fistula with good thrill and bruit General: Yes normal to inspection Psych Appearance: grossly normal Speech and movement: Normal speech and movement present Attitude: cooperative Thought content: Paranoid delusions present Results Lab Results Result Diagrams: 07/14/22 13:45 07/15/22 05:48 Lab results: Chemistry 07/14/22 07/15/22 13:45 05:48 Sodium 132 L 132 L Potassium 5.3 H 5.9 H Carbon Dioxide 25 24 BUN 92 H D 103 H Creatinine 11.02 H* 11.82 H* Calcium 9.3 D 9.1 Hematology 07/14/22 13:45 WBC 9.2 Hgb 6.0 L* D Plt Count 237 Urinalysis 07/14/22 15:53 Urine Color RED Urine Appearance Hazy Urine pH 7.5 Ur Specific [place] 1.015 Urine Protein 100 (2+) H Urine Glucose (UA) 100 H Urine Ketones Negative Urine Blood Large (3+) H Urine Nitrite Negative Ur Leukocyte Esterase Moderate (2+) H Urine RBC >20 H Urine WBC 11-20 Ur Squamous Epith Cells 0-2 Hyaline Casts 0-2 Assessment and Plan (1) Non-compliance with renal dialysis: Status: Acute (2) Anemia: Status: Acute (3) Chronic paranoid schizophrenia: Status: Acute (4) HTN (hypertension): Status: Acute (5) ESRD needing dialysis: Status: Acute dialysis ordered seen on dialysis this am Plan 62-year-old male with hypertension, paranoid schizophrenia, end-stage renal disease, and anemia of chronic disease who presents after missing multiple dialysis and is found to be more anemic than usual. 1/ESRD-- No fluid overload. Plan for dialysis tomorrow 2/ Acute on chronic anemia with no evidence of active bleed. Transfuse 2 units tomorrow during dialysis and Nephrology to make a recommendation on November crit - stool occult blood if the patient is agreeable 3/ hypertension-- resume home med once med rec is done 4/ paranoid schizophrenia-- psych consult DVT-- no heparin or Lovenox given the profound anemia. Use compression devices full code admission to spend 2 midnights for management of her profound anemia, end-stage renal disease needing urgent dialysis in a schizophrenic pt not grasping the importance of going to [facility] Procedures Date of Service Date of Service: 07/15/22
[2022-07-15] MEDS: Fluticasone Propionate 100 MCG BLST.W.DEV 1 PUFF INHALE ×2 (07:46→19:38)
[2022-07-15 08:01] LABS: Hematocrit 19.2 % (42.0-52.0)
[2022-07-15] MEDS: 0.9 % Sodium Chloride Flush 3 ML SYRINGE IVFLUSH ×3 (08:36→20:55)
--- NOTE | 2022-07-15 09:35 | P.PNIM_ITS ---
Subjective Subjective Date of Service: 07/15/22 Interval History: Seen in f/u for missed, dialysis, hi K and anemia interval history: K is higher now Review of Systems Gen: no fever Resp: no sob, no cough CV: no chest, no MATHEW, no leg edema GI: No n/v, no abd pain Neuro: No confusion Physical Exam Vital Signs: Vital Signs: Last Vital Signs Temp 97.9 F 07/15/22 07:56 Pulse 82 07/15/22 07:56 Resp 19 07/15/22 07:56 BP 173/78 H 07/15/22 07:56 Pulse Ox 92 07/15/22 07:56 O2 Del Method 07/15/22 07:56 O2 Flow Rate 3.0 07/15/22 07:56 Oxygen Flow Rate 4 07/14/22 12:39 BMI result Body Mass Index 25.4 Const: Other: Constitutional: Alert, in no distress, Mental Status: Oriented to person, place and time. Eyes: Pupils are equal, round and reactive to light. Ear, Nose and Throat: Oropharynx clear, mucous membranes moist. Ears and nose without eformities. Respiratory: Clear to auscultation. No wheezing, rales or rhonchi. Cardiovascular: S1 S2 regular. No murmurs, rubs or gallops. no leg edema Gastrointestinal: Abdomen soft, non-tender, non-distended. Normal bowel sounds.? Neurologic: Cranial nerves II-XII grossly intact. No focal neurological deficit s. Moves all extremities spontaneously.? Skin: No rashes or lesions.? Musculoskeletal: No cyanosis or clubbing. Psychiatric: Paranoid Objective Data Active Medications Acetaminophen (Acetaminophen 325 Mg Tablet) 650 mg PO Q6H PRN PRN Reason: Pain, Mild (Pain Scale 1-3) Albuterol Sulfate (Albuterol Sulfate 90 Mcg 8 Gm Inhaler) 2 puff INHALE Q4H PRN PRN Reason: Shortness Of Breath Amlodipine Besylate (Amlodipine Besylate 5 Mg Tablet) 5 mg PO DAILY [facility]; Protocol Aspirin (Aspirin Enteric Coated 81 Mg Tablet.) 81 mg PO DAILY [facility] Famotidine (Famotidine 20 Mg Tablet) 20 mg PO BEDTIME [facility] Last Admin: 07/14/22 19:49 Dose: 20 mg Documented By: GAETANO Fluticasone Propionate (Fluticasone Propionate 100 Mcg Blst.W.Dev) 1 puff INHALE RBID [facility] Last Admin: 07/15/22 07:46 Dose: 1 puff Documented By: HODA Guaifenesin/Dextromethorphan (Guaifenesin Dm 200/20/10 Ml 10 Ml Syrup) 10 ml PO Q4H PRN PRN Reason: Cough Last Admin: 07/15/22 02:12 Dose: 10 ml Documented By: GAETANO Loperamide HCl (Loperamide Hcl 2 Mg Capsule) 2 mg PO TID PRN PRN Reason: Diarrhea Magnesium Hydroxide (Milk Of Magnesia 30 Ml Oral.Susp) 30 ml PO DAILY PRN PRN Reason: Constipation Melatonin (Melatonin 3 Mg Tablet) 6 mg PO BEDTIME PRN PRN Reason: Insomnia Metoprolol Tartrate (Metoprolol Tartrate 25 Mg Tablet) 25 mg PO BID [facility]; Prot ocol Last Admin: 07/14/22 19:49 Dose: 25 mg Documented By: GAETANO Midodrine (Midodrine Hcl 5 Mg Tablet) 5 mg PO MOWEFR@0900,1800 [facility] Last Admin: 07/14/22 19:47 Dose: Not Given Documented By: GAETANO Non-Admin Reason: Elevated Blood Pressure Multivitamins/Vitamin C (Multivitamin Tablet) 1 tab PO DAILY [facility] Nicotine (Nicotine 14 Mg Patch.Td24) 14 mg TRANSDERMA DAILY PRN PRN Reason: Nicotine Cravings Non-Formulary Medication (Ferric Citrate [Auryxia]) 3 tab PO TID [facility] Ondansetron HCl (Ondansetron Hcl 4 Mg/2 Ml Vial) 4 mg IVPUSH Q8H PRN PRN Reason: Nausea and Vomiting Paliperidone (Paliperidone Er 3 Mg Tab.Er.24) 3 mg PO DAILY [facility] Perphenazine (Perphenazine 4 Mg Tablet) 4 mg PO DAILY [facility] Sodium Chloride (0.9 % Sodium Chloride Flush 3 Ml Syringe) 3 ml IVFLUSH QSHIFT [facility] Last Admin: 07/15/22 08:36 Dose: 3 ml Documented By: JAMES Vitamin D (Cholecalciferol (Vitamin D3) 25 Mcg Tablet) 125 mcg PO DAILY [facility] Labs CBC & Chem 7: 07/15/22 05:48 07/15/22 05:48 Labs: Laboratory Results - last 24 hr 07/14/22 07/14/22 07/14/22 13:45 13:45 13:45 MCV 97.4 MCH 31.3 MCHC 32.1 RDW 14.9 Plt Count 237 MPV 9.8 Immature Gran % (Auto) 0.8 H Neut % (Auto) 83.1 H Lymph % (Auto) 7.4 L Norton % (Auto) 8.1 Eos % (Auto) 0.4 Baso % (Auto) 0.2 Lymph # (Auto) 0.7 L Norton # (Auto) 0.8 Eos # (Auto) 0.0 Baso # (Auto) 0.0 Abs Immat Gran (auto) 0.07 H Absolute Neuts (auto) 7.7 Absolute Nucleated RBC 0.000 Nucleated RBC % (auto) 0.0 PT 13.8 H INR 1.2 H APTT 31.6 Anion Gap 22 H Estim Creat Clear Calc 7.5 Estimated GFR 5 Random Glucose 126 H Calcium 9.3 D Total Bilirubin 0.5 AST 14 ALT 16 Alkaline Phosphatase 68 Troponin I High Sens B-Natriuretic Peptide Total Protein 6.0 L Albumin 3.5 Lipase 51 Urine Color Urine Appearance Urine pH Ur Specific [place] Urine Protein Urine Glucose (UA) Urine Ketones Urine Blood Urine Nitrite Ur Leukocyte Esterase Urine RBC Urine WBC Ur Squamous Epith Cells Urine Bacteria Hyaline Casts Urine Opiates Screen Urine Fentanyl Screen Ur Barbiturates Screen Ur Phencyclidine Scrn Ur Amphetamines Screen U Benzodiazepines Scrn Urine Cocaine Screen U Marijuana (THC) Screen Ethyl Alcohol < 10 COVID-19 ([facility]) COVID-19 Clin Com Influenza Type A ([place]) Influenza Type B ([place]) Influenza A & B Note Blood Type Antibody Screen Crossmatch 07/14/22 07/14/22 07/14/22 13:45 13:45 13:45 MCV MCH MCHC RDW Plt Count MPV Immature Gran % (Auto) Neut % (Auto) Lymph % (Auto) Norton % (Auto) Eos % (Auto) Baso % (Auto) Lymph # (Auto) Norton # (Auto) Eos # (Auto) Baso # (Auto) Abs Immat Gran (auto) Absolute Neuts (auto) Absolute Nucleated RBC Nucleated RBC % (auto) PT INR APTT Anion Gap Estim Creat Clear Calc Estimated GFR Random Glucose Calcium Total Bilirubin AST ALT Alkaline Phosphatase Troponin I High Sens B-Natriuretic Peptide 1410 H Total Protein Albumin Lipase Urine Color Urine Appearance Urine pH Ur Specific [place] Urine Protein Urine Glucose (UA) Urine Ketones Urine Blood Urine Nitrite Ur Leukocyte Esterase Urine RBC Urine WBC Ur Squamous Epith Cells Urine Bacteria Hyaline Casts Urine Opiates Screen Urine Fentanyl Screen Ur Barbiturates Screen Ur Phencyclidine Scrn Ur Amphetamines Screen U Benzodiazepines Scrn Urine Cocaine Screen U Marijuana (THC) Screen Ethyl Alcohol COVID-19 ([facility]) Negative COVID-19 Clin Com See Note Influenza Type A ([place]) Negative Influenza Type B ([place]) Negative Influenza A & B Note See Note Blood Type Antibody Screen Crossmatch 07/14/22 07/14/22 07/14/22 13:45 15:53 15:53 MCV MCH MCHC RDW Plt Count MPV Immature Gran % (Auto) Neut % (Auto) Lymph % (Auto) Norton % (Auto) Eos % (Auto) Baso % (Auto) Lymph # (Auto) Norton # (Auto) Eos # (Auto) Baso # (Auto) Abs Immat Gran (auto) Absolute Neuts (auto) Absolute Nucleated RBC Nucleated RBC % (auto) PT INR APTT Anion Gap Estim Creat Clear Calc Estimated GFR Random Glucose Calcium Total Bilirubin AST ALT Alkaline Phosphatase Troponin I High Sens 55.3 H B-Natriuretic Peptide Total Protein Albumin Lipase Urine Color RED Urine Appearance Hazy Urine pH 7.5 Ur Specific [place] 1.015 Urine Protein 100 (2+) H Urine Glucose (UA) 100 H Urine Ketones Negative Urine Blood Large (3+) H Urine Nitrite Negative Ur Leukocyte Esterase Moderate (2+) H Urine RBC >20 H Urine WBC 11-20 Ur Squamous Epith Cells 0-2 Urine Bacteria 1+ Hyaline Casts 0-2 Urine Opiates Screen Not Detected Urine Fentanyl Screen Not Detected Ur Barbiturates Screen Not Detected Ur Phencyclidine Scrn Not Detected Ur Amphetamines Screen Not Detected U Benzodiazepines Scrn Not Detected Urine Cocaine Screen Not Detected U Marijuana (THC) Screen Not Detected Ethyl Alcohol COVID-19 ([facility]) COVID-19 Clin Com Influenza Type A ([place]) Influenza Type B ([place]) Influenza A & B Note Blood Type Antibody Screen Crossmatch 07/14/22 07/15/22 07/15/22 17:51 05:48 05:48 MCV 99.0 H MCH 30.9 MCHC 31.3 RDW 15.0 Plt Count 229 MPV 9.9 Immature Gran % (Auto) 0.9 H Neut % (Auto) 82.5 H Lymph % (Auto) 7.6 L Norton % (Auto) 8.2 Eos % (Auto) 0.6 Baso % (Auto) 0.2 Lymph # (Auto) 0.7 L Norton # (Auto) 0.8 Eos # (Auto) 0.1 Baso # (Auto) 0.0 Abs Immat Gran (auto) 0.08 H Absolute Neuts (auto) 7.7 Absolute Nucleated RBC 0.000 Nucleated RBC % (auto) 0.0 PT INR APTT Anion Gap 23 H Estim Creat Clear Calc 7.0 Estimated GFR 4 Random Glucose 96 Calcium 9.1 Total Bilirubin AST ALT Alkaline Phosphatase Troponin I High Sens B-Natriuretic Peptide Total Protein Albumin Lipase Urine Color Urine Appearance Urine pH Ur Specific [place] Urine Protein Urine Glucose (UA) Urine Ketones Urine Blood Urine Nitrite Ur Leukocyte Esterase Urine RBC Urine WBC Ur Squamous Epith Cells Urine Bacteria Hyaline Casts Urine Opiates Screen Urine Fentanyl Screen Ur Barbiturates Screen Ur Phencyclidine Scrn Ur Amphetamines Screen U Benzodiazepines Scrn Urine Cocaine Screen U Marijuana (THC) Screen Ethyl Alcohol COVID-19 ([facility]) COVID-19 Clin Com Influenza Type A ([place]) Influenza Type B ([place]) Influenza A & B Note Blood Type O Positive Antibody Screen NEGATIVE Crossmatch See Detail Microbiology Microbiology Results: Microbiology 07/14/22 16:10 Urine Culture - Preliminary Urine clean catch - Urine grijalva top No growth to date. Assessment and Plan (1) ESRD needing dialysis: Status: Acute (2) Non-compliance with renal dialysis: Status: Acute (3) Anemia: Status: Acute Plan 62-year-old male with hypertension, paranoid schizophrenia, end-stage renal disease, and anemia of chronic disease who presents after missing multiple dialysis and is found to be more anemic than usual. 1/ESRD-- No fluid overload. Plan for dialysis tomorrow 2/ Acute on chronic anemia with no evidence of active bleed. Transfuse 2 unit during dialysis and Nephrology to make a recommendation on November crit - stool occult blood if the patient is agreeable.. Hyperkalemia--Lokelma and additional correction at dialysis 3/ hypertension-- resume home med once med rec is done 4/ paranoid schizophrenia-- psych consult pending DVT-- no heparin or Lovenox given the profound anemia. Use compression devices full code admission to spend 2 midnights for management of her profound anemia, end-stage renal disease needing urgent dialysis in a schizophrenic pt not grasping the importance of going to [facility] Quality Stroke Does the patient have a stroke diagnosis?: No VTE Prior VTE?: No VTE Risk Level:: Medical - low VTE Device Contraindication: N/A - Device Ordered VTE Drug Contraindication: Treatment Not Tolerated
--- NOTE | 2022-07-15 12:26 | MHC.CM.PN ---
Addendum entered by Lona Carrizales 07/15/22 13:09: PT ALSO HAS [employer] REFERRAL SENT TO [facility] TO CONFIRM HE IS STILL ACTIKVE HCP ON FILE, IT IS HIS ROOMMATE, [facility], [facility]ME SERVICES / OUTPATIENT HD [facility]D WORKER MAY BE ABLE TO TRANSPORT DEPENDING ON WHEN PT IS DC Original Note: CM INFORMED PT REFUSING BLOOD TRANSFUSION CM ATTEMPTED TO REACH PTS HCP TO DISCUSS BASELINE MENTATION HOWEVER HE DID NOT ANSWER PER [place] LAW, PT WILL HAVE TO AGREE TO TRANSFUSION, IT CANNOT BE FORCED EVEN IF HCP AGREED CM ALSO INFORMED CHD NURSE, ZAY ([phone]) CALLED, SHE WAS INFORMED OF ABOVE SITUATION AND REPORTED THEY DID TRY TO CONVINCE PT TO GO TO [facility] HOWEVER HE CAN BE STUBBORN. PT LIVES IN AN APARTMENT WITH A ROOMMATE AND CHD SUPPORT WELL A [facility] HIS PCP IS BRIANNA JONES
[2022-07-15] MEDS: Aspirin Enteric Coated 81 MG TABLET.DR PO (15:16)
[2022-07-15] MEDS: Perphenazine 4 MG TABLET PO (15:17)
[2022-07-15] MEDS: Multivitamin TABLET 1 TAB PO (15:17)
[2022-07-15] MEDS: Paliperidone ER 3 MG TAB.ER.24 PO (15:17)
[2022-07-15] MEDS: Cholecalciferol (Vitamin D3) 25 MCG TABLET 125 MCG PO (15:17)
[2022-07-15] MEDS: Metoprolol Tartrate 25 MG TABLET PO (20:55)
[2022-07-15] MEDS: Famotidine 20 MG TABLET PO (20:55)
[2022-07-15] MEDS: Melatonin 3 MG TABLET 6 MG PO (22:32)
--- NOTE | 2022-07-15 23:13 | PC.NURSE ---
Addendum entered by Fiorella Huber RN 07/16/22 00:09: pt has been productive (clear sputum) cough with congestion. lung sounds rhonchi throughout the lungs and left side more likely expiration wheezing. I spoke to dr Calderon discuss about his lung sounds and blood transfusions. pt will get the blood transfusion tomorrow in dialysis. now at this time closely will monitoring the pt's symptoms. Original Note: pt has been productive (clear sputum) cough with congestion. lung sounds rhonchi throughout the lungs. dr Calderon notified will order for chest x-ray.
[2022-07-16] VITALS (14 sets, daily range): BP systolic 126–173; BP diastolic 70–86; PULSE 76–90; RESP 16–22; TEMP 36.2–36.6; O2SAT 91–97
[2022-07-16] MEDS: guaiFENesin DM 200/20/10 ML 10 ML SYRUP PO ×2 (04:02→11:51)
[2022-07-16] MEDS: Fluticasone Propionate 100 MCG BLST.W.DEV 1 PUFF INHALE ×2 (08:04→19:32)
--- NOTE | 2022-07-16 08:43 | P.PNNP_ITS ---
Subjective Subjective Date of Service: 07/16/22 Interval history: Seen in f/u for missed, dialysis, hi K and anemia did well on dialysis yesterday Physical Exam Vital Signs: Vital Signs: Last Vital Signs Temp 97.8 F 07/16/22 08:00 Pulse 87 07/16/22 08:05 Resp 20 07/16/22 08:05 BP 159/75 H 07/16/22 08:00 Pulse Ox 93 07/16/22 08:00 O2 Del Method 07/16/22 08:00 O2 Flow Rate 4.0 07/16/22 08:00 Oxygen Flow Rate 4 07/14/22 12:39 BMI result Body Mass Index 25.4 Const: Other: Constitutional: Alert, in no distress, Mental Status: Oriented to person, place and time. Eyes: Pupils are equal, round and reactive to light. Ear, Nose and Throat: Oropharynx clear, mucous membranes moist. Ears and nose without eformities. Respiratory: Clear to auscultation. No wheezing, rales or rhonchi. Cardiovascular: S1 S2 regular. No murmurs, rubs or gallops. no leg edema Gastrointestinal: Abdomen soft, non-tender, non-distended. Normal bowel sounds.? Neurologic: Cranial nerves II-XII grossly intact. No focal neurological deficits. Moves all extremities spontaneously.? Skin: No rashes or lesions.? Musculoskeletal: No cyanosis or clubbing. Psychiatric: Paranoid General: cooperative and no acute distress Orientation/consciousness: oriented to person and oriented to place Limitations: no limitations HEENT: Head: Yes normal to inspection, Yes normocephalic and Yes atraumatic Ears: external ears normal General nose exam: Normal external nose present Face and sinus: Yes normal facial exam Mouth: Normal oral and palatal mucosa present Throat: Yes posterior oropharynx normal Eyes: General: appearance normal, both eyes and all related structures Pupils: Equal, round and reactive pupils present Neck: Neck: Yes normal visual inspection, Yes no lymphadenopathy, Yes trachea midline and Yes supple Chest: Chest palpation & inspection: normal inspection of the chest and normal palpation of entire chest wall Resp: Effort & Inspection: normal respiratory effort and able to speak in complete sentences Auscultation: clear to auscultation bilaterally Cardio: Rate: regular rate Rhythm: regular rhythm Heart sounds: S1 normal heart sound present, S2 normal heart sound present and no murmurs GI: Inspection: Yes normal to inspection Palpation (GI): Soft to palpation, nontender and no guarding Auscultation: normal bowel sounds : General: Yes no CVA tenderness Back/Spine/Pelvis: Back: no CVA tenderness Skin: General skin exam: no rashes or lesions noted Neuro: General: oriented to person and oriented to place Cranial nerves: Yes CN's II-XII intact bilaterally and Yes Equal, round and reactive pupils present Cognition (Neuro): normal cognition Motor exam (neuro): 5/5 motor strength present throughout Extrem: Other: Left upper arm AV fistula with good thrill and bruit General: Yes normal to inspection Psych: Appearance: grossly normal Speech and movement: Normal speech and movement present Attitude: cooperative Thought content: Paranoid delusions present Objective Data Labs CBC & Chem 7: 07/15/22 05:48 07/15/22 05:48 Microbiology Microbiology Results: Microbiology 07/14/22 16:10 Urine clean catch - Urine grijalva top Urine Culture - P reliminary No growth to date. Procedures Date of Service Date of Service: 07/16/22 Assessment & Plan Assessment and plan (1) ESRD needing dialysis: Status: Acute Assessment and Plan: dialysis yesterday next rx sunday repeat labs pending (2) Non-compliance with renal dialysis: Status: Acute (3) Anemia: Status: Acute Plan 62-year-old male with hypertension, paranoid schizophrenia, end-stage renal disease, and anemia of chronic disease who presents after missing multiple dialysis and is found to be more anemic than usual. 1/ESRD-- No fluid overload. Plan for dialysis tomorrow 2/ Acute on chronic anemia with no evidence of active bleed. Transfused 2 unit during dialysis - stool occult blood if the patient is agreeable.. Hyperkalemia--Lokelma and additional correction at dialysis 3/ hypertension-- resume home med once med rec is done 4/ paranoid schizophrenia-- psych consult pending DVT-- no heparin or Lovenox given the profound anemia. Use compression devices Progress Note: Quality Stroke Does the patient have a stroke diagnosis?: No
--- NOTE | 2022-07-16 08:58 | HO.PM.IMPN ---
Subjective Subjective Date of Service: 07/16/22 Interval History: Seen in f/u for missed, dialysis, hi K and anemia interval history: refused blood during dialysis yesterday but is now willing to take, he's been coughin, no sob Review of Systems Gen: no fever Resp: no sob, + cough CV: no chest, no MATHEW, no leg edema GI: No n/v, no abd pain Neuro: No confusion Physical Exam Vital Signs: Vital Signs: Last Vital Signs Temp 97.8 F 07/16/22 08:00 Pulse 87 07/16/22 08:05 Resp 20 07/16/22 08:05 BP 159/75 H 07/16/22 08:00 Pulse Ox 93 07/16/22 08:00 O2 Del Method 07/16/22 08:00 O2 Flow Rate 4.0 07/16/22 08:00 Oxygen Flow Rate 4 07/14/22 12:39 BMI result Body Mass Index 25.4 Const: Other: General: AO X 3, no acute distress Resp: CTA bilateral CVS: S1,S2,RRR GI: +BS, NT, no distention Skin: No rash Neuro: motor grossly intact Psych: appropriate affect Objective Data Active Medications Acetaminophen (Acetaminophen 325 Mg Tablet) 650 mg PO Q6H PRN PRN Reason: Pain, Mild (Pain Scale 1-3) Albuterol Sulfate (Albuterol Sulfate 90 Mcg 8 Gm Inhaler) 2 puff INHALE Q4H PRN PRN Reason: Shortness Of Breath Amlodipine Besylate (Amlodipine Besylate 5 Mg Tablet) 5 mg PO DAILY [facility]; Protocol Last Admin: 07/15/22 15:13 Dose: Not Given Documented By: JAMES Non-Admin Reason: BP low after dialysis Aspirin (Aspirin Enteric Coated 81 Mg Tablet.) 81 mg PO DAILY [facility] Last Admin: 07/15/22 15:16 Dose: 81 mg Documented By: JAMES Famotidine (Famotidine 20 Mg Tablet) 20 mg PO BEDTIME [facility] Last Admin: 07/15/22 20:55 Dose: 20 mg Documented By: GAETANO Fluticasone Propionate (Fluticasone Propionate 100 Mcg Blst.W.Dev) 1 puff INHALE RBID [facility] Last Admin: 07/16/22 08:04 Dose: 1 puff Documented By: HO.BRESNE Guaifenesin/Dextromethorphan (Guaifenesin Dm 200/20/10 Ml 10 Ml Syrup) 10 ml PO Q4H PRN PRN Reason: Cough Last Admin: 07/16/22 04:02 Dose: 10 ml Documented By: GAETANO Loperamide HCl (Loperamide Hcl 2 Mg Capsule) 2 mg PO TID PRN PRN Reason: Diarrhea Magnesium Hydroxide (Milk Of Magnesia 30 Ml Oral.Susp) 30 ml PO DAILY PRN PRN Reason: Constipation Melatonin (Melatonin 3 Mg Tablet) 6 mg PO BEDTIME PRN PRN Reason: Insomnia Last Admin: 07/15/22 22:32 Dose: 6 mg Documented By: GAETANO Metoprolol Tartrate (Metoprolol Tartrate 25 Mg Tablet) 25 mg PO BID [facility]; Protocol Last Admin: 07/15/22 20:55 Dose: 25 mg Documented By: GAETANO Midodrine (Midodrine Hcl 5 Mg Tablet) 5 mg PO MOWEFR@0900,1800 [facility] Last Admin: 07/14/22 19:47 Dose: Not Given Documented By: GAETANO Non-Admin Reason: Elevated Blood Pressure Multivitamins/Vitamin C (Multivitamin Tablet) 1 tab PO DAILY [facility] Last Admin: 07/15/22 15:17 Dose: 1 tab Documented By: JAMES Nicotine (Nicotine 14 Mg Patch.Td24) 14 mg TRANSDERMA DAILY PRN PRN Reason: Nicotine Cravings Non-Formulary Medication (Ferric Citrate [Auryxia]) 3 tab PO TID [facility] Ondansetron HCl (Ondansetron Hcl 4 Mg/2 Ml Vial) 4 mg IVPUSH Q8H PRN PRN Reason: Nausea and Vomiting Paliperidone (Paliperidone Er 3 Mg Tab.Er.24) 3 mg PO DAILY [facility] Last Admin: 07/15/22 15:17 Dose: 3 mg Documented By: JAMES Perphenazine (Perphenazine 4 Mg Tablet) 4 mg PO DAILY [facility] Last Admin: 07/15/22 15:17 Dose: 4 mg Documented By: JAMES Sodium Chloride (0.9 % Sodium Chloride Flush 3 Ml Syringe) 3 ml IVFLUSH QSHIFT [facility] Last Admin: 07/15/22 20:55 Dose: 3 ml Documented By: GAETANO Vitamin D (Cholecalciferol (Vitamin D3) 25 Mcg Tablet) 125 mcg PO DAILY [facility] Last Admin: 07/15/22 15:17 Dose: 125 mcg Documented By: JAMES Labs CBC & Chem 7: 07/15/22 05:48 07/15/22 05:48 Microbiology Microbiology Results: Microbiology 07/14/22 16:10 Urine Culture - Preliminary Urine clean catch - Urine grijalva top No growth to date. Assessment and Plan (1) ESRD needing dialysis: Status: Acute (2) Non-compliance with renal dialysis: Status: Acute (3) Anemia: Status: Acute Plan 62-year-old male with hypertension, paranoid schizophrenia, end-stage renal disease, and anemia of chronic disease who presents after missing multiple dialysis and is found to be more anemic than usual. 1/ESRD-- No fluid overload. Dialysis yeserday, next one tomorrow 2/ Acute on chronic anemia with no evidence of active bleed. Transfuse 2 unit today - stool occult blood if the patient is agreeable.. Hyperkalemia--Lokelma and additional correction at dialysis 3/ hypertension-- resume home med once med rec is done 4/ paranoid schizophrenia-- continue meds' 5/Hyperkalemia--presumed corrected after dialysis DVT-- no heparin or Lovenox given the profound anemia. Use compression devices full code Need for inaptient: in need of dialysis, anemia that needs transfusion, treatment of hyperkalemia Quality Stroke Does the patient have a stroke diagnosis?: No VTE Prior VTE?: No VTE Risk Level:: Medical - low VTE Device Contraindication: N/A - Device Ordered VTE Drug Contraindication: Treatment Not Tolerated
[2022-07-16] MEDS: Metoprolol Tartrate 25 MG TABLET PO ×2 (09:49→21:00)
[2022-07-16] MEDS: Cholecalciferol (Vitamin D3) 25 MCG TABLET 125 MCG PO (09:49)
[2022-07-16] MEDS: amLODIPine Besylate 5 MG TABLET PO (09:49)
[2022-07-16] MEDS: Aspirin Enteric Coated 81 MG TABLET.DR PO (09:49)
[2022-07-16] MEDS: Paliperidone ER 3 MG TAB.ER.24 PO (09:49)
[2022-07-16] MEDS: Multivitamin TABLET 1 TAB PO (09:49)
[2022-07-16] MEDS: Perphenazine 4 MG TABLET PO (09:49)
[2022-07-16] MEDS: 0.9 % Sodium Chloride Flush 3 ML SYRINGE IVFLUSH ×2 (09:50→21:00)
[2022-07-16 10:06] LABS: Anion Gap 23 (12-20); Blood Urea Nitrogen 56 mg/dL (9-16); Carbon Dioxide 29 mmol/L (22-29); Chloride 88 mmol/L (96-108); Estimated Glomerular Filt Rate 8; Glucose Random 125 mg/dL (60-115); Potassium 5.5 mmol/L (3.3-5.1); Sodium 134 mmol/L (135-145)
[2022-07-16 10:08] LABS: Hematocrit 25.5 % (42.0-52.0); Mean Corpuscular HGB Conc 31.4 g/dl (31.0-36.0); Mean Corpuscular Hemoglobin 31.5 pg (27.0-33.0); Mean Corpuscular Volume 100.4 fL (80.0-98.0); Mean Platelet Volume 9.8 fL (9.4-12.4); Platelet Count 309 X10*3/uL (160-400); Red Blood Count 2.54 X10*6/uL (4.60-5.80); Red Cell Distribution Width 15.3 % (11.0-16.0); White Blood Count 10.8 X10*3/uL (4.8-10.8)
[2022-07-16 10:14] LABS: Calcium 10.2 mg/dL (8.4-10.2)
[2022-07-16] MEDS: Sodium Zirconium Cyclosilicate 10 GM POWD.PACK PO (11:29)
[2022-07-16 17:36] LABS: OBS Int Ctl Valid YES; OBS1 NEGATIVE (NEGATIVE)
[2022-07-16] MEDS: Famotidine 20 MG TABLET PO (21:00)
[2022-07-17] VITALS (7 sets, daily range): BP systolic 142–188; BP diastolic 68–84; PULSE 64–83; RESP 16–20; TEMP 36.2–36.6; O2SAT 96–100
[2022-07-17] MEDS: Fluticasone Propionate 100 MCG BLST.W.DEV 1 PUFF INHALE ×2 (08:03→20:51)
[2022-07-17 08:10] LABS: Hematocrit 28.4 % (42.0-52.0); Hemoglobin 9.2 g/dl (14.0-18.0); Mean Corpuscular HGB Conc 32.4 g/dl (31.0-36.0); Mean Corpuscular Hemoglobin 31.2 pg (27.0-33.0); Mean Corpuscular Volume 96.3 fL (80.0-98.0); Mean Platelet Volume 9.7 fL (9.4-12.4); Platelet Count 260 X10*3/uL (160-400); Red Blood Count 2.95 X10*6/uL (4.60-5.80); Red Cell Distribution Width 14.9 % (11.0-16.0)
--- NOTE | 2022-07-17 08:16 | HO.PM.IMPN ---
Subjective Subjective Date of Service: 07/17/22 Interval History: Seen in f/u for missed, dialysis, hi K and anemia interval history:No new issues, H/H better, occult blood is negative. Review of Systems Gen: no fever Resp: no sob, + cough CV: no chest, no MATHEW, no leg edema GI: No n/v, no abd pain Neuro: No confusion Physical Exam Vital Signs: Vital Signs: Last Vital Signs Temp 97.8 F 07/17/22 08:00 Pulse 78 07/17/22 08:06 Resp 18 07/17/22 08:06 BP 188/84 H 07/17/22 08:00 Pulse Ox 96 07/17/22 08:00 O2 Del Method 07/17/22 08:00 O2 Flow Rate 3 07/17/22 08:00 Oxygen Flow Rate 4 07/14/22 12:39 BMI result Body Mass Index 25.4 Const: Other: General: AO X 3, no acute distress Resp: CTA bilateral CVS: S1,S2,RRR GI: +BS, NT, no distention Skin: No rash Neuro: motor grossly intact Psych: appropriate affect Objective Data Active Medications Acetaminophen (Acetaminophen 325 Mg Tablet) 650 mg PO Q6H PRN PRN Reason: Pain, Mild (Pain Scale 1-3) Albuterol Sulfate (Albuterol Sulfate 90 Mcg 8 Gm Inhaler) 2 puff INHALE Q4H PRN PRN Reason: Shortness Of Breath Amlodipine Besylate (Amlodipine Besylate 5 Mg Tablet) 5 mg PO DAILY [facility]; Protocol Last Admin: 07/16/22 09:49 Dose: 5 mg Documented By: JAMES Aspirin (Aspirin Enteric Coated 81 Mg Tablet.) 81 mg PO DAILY [facility] Last Admin: 07/16/22 09:49 Dose: 81 mg Documented By: JAMES Famotidine (Famotidine 20 Mg Tablet) 20 mg PO BEDTIME [facility] Last Admin: 07/16/22 21:00 Dose: 20 mg Documented By: JESSICA Fluticasone Propionate (Fluticasone Propionate 100 Mcg Blst.W.Dev) 1 puff INHALE RBID [facility] Last Admin: 07/17/22 08:03 Dose: 1 puff Documented By: AUGUSTINE Guaifenesin/Dextromethorphan (Guaifenesin Dm 200/20/10 Ml 10 Ml Syrup) 10 ml PO Q4H PRN PRN Reason: Cough Last Admin: 07/16/22 11:51 Dose: 10 ml Documented By: JAMES Loperamide HCl (Loperamide Hcl 2 Mg Capsule) 2 mg PO TID PRN PRN Reason: Diarrhea Magnesium Hydroxide (Milk Of Magnesia 30 Ml Oral.Susp) 30 ml PO DAILY PRN PRN Reason: Constipation Melatonin (Melatonin 3 Mg Tablet) 6 mg PO BEDTIME PRN PRN Reason: Insomnia Last Admin: 07/15/22 22:32 Dose: 6 mg Documented By: GAETANO Metoprolol Tartrate (Metoprolol Tartrate 25 Mg Tablet) 25 mg PO BID [facility]; Protocol Last Admin: 07/16/22 21:00 Dose: 25 mg Documented By: JESSICA Midodrine (Midodrine Hcl 5 Mg Tablet) 5 mg PO MOWEFR@0900,1800 [facility] Last Admin: 07/14/22 19:47 Dose: Not Given Documented By: GAETANO Non-Admin Reason: Elevated Blood Pressure Multivitamins/Vitamin C (Multivitamin Tablet) 1 tab PO DAILY [facility] Last Admin: 07/16/22 09:49 Dose: 1 tab Documented By: JAMES Nicotine (Nicotine 14 Mg Patch.Td24) 14 mg TRANSDERMA DAILY PRN PRN Reason: Nicotine Cravings Non-Formulary Medication (Ferric Citrate [Auryxia]) 3 tab PO TID [facility] Ondansetron HCl (Ondansetron Hcl 4 Mg/2 Ml Vial) 4 mg IVPUSH Q8H PRN PRN Reason: Nausea and Vomiting Paliperidone (Paliperidone Er 3 Mg Tab.Er.24) 3 mg PO DAILY [facility] Last Admin: 07/16/22 09:49 Dose: 3 mg Documented By: JAMES Perphenazine (Perphenazine 4 Mg Tablet) 4 mg PO DAILY [facility] Last Admin: 07/16/22 09:49 Dose: 4 mg Documented By: JAMES Sodium Chloride (0.9 % Sodium Chloride Flush 3 Ml Syringe) 3 ml IVFLUSH QSHIFT [facility] Last Admin: 07/16/22 21:00 Dose: 3 ml Documented By: JESSICA Vitamin D (Cholecalciferol (Vitamin D3) 25 Mcg Tablet) 125 mcg PO DAILY [facility] Last Admin: 07/16/22 09:49 Dose: 125 mcg Documented By: JAMES Labs CBC & Chem 7: 07/17/22 07:33 07/16/22 09:27 Labs: Laboratory Results - last 24 hr 07/14/22 07/16/22 07/16/22 17:51 09:27 09:27 MCV 100.4 H MCH 31.5 MCHC 31.4 RDW 15.3 Plt Count 309 D MPV 9.8 Absolute Nucleated RBC 0.000 Nucleated RBC % (auto) 0.0 Anion Gap 23 H Estim Creat Clear Calc 12.0 Estimated GFR 8 Random Glucose 125 H Calcium 10.2 D Stool Occult Blood Blood Type O Positive Antibody Screen NEGATIVE Crossmatch See Detail 07/16/22 07/17/22 17:21 07:33 MCV 96.3 MCH 31.2 MCHC 32.4 RDW 14.9 Plt Count 260 MPV 9.7 Absolute Nucleated RBC 0.000 Nucleated RBC % (auto) 0.0 Anion Gap Estim Creat Clear Calc Estimated GFR Random Glucose Calcium Stool Occult Blood NEGATIVE Blood Type Antibody Screen Crossmatch Microbiology Microbiology Results: Microbiology 07/14/22 16:10 Urine Culture - Final Urine clean catch - Urine grijalva top Assessment and Plan (1) ESRD needing dialysis: Status: Acute (2) Non-compliance with renal dialysis: Status: Acute (3) Anemia: Status: Acute Plan 62-year-old male with hypertension, paranoid schizophrenia, end-stage renal disease, and anemia of chronic disease who presents after missing multiple dialysis and is found to be more anemic than usual. 1/ESRD-- No fluid overload. Dialysis yeserday, next one today 2/ Acute on chronic anemia with no evidence of active bleed. Occult blood is negative. s/p 2 units of RBC with improvement in H/H - stool occult blood is negative.. Hyperkalemia--to be corrected at dialysis 3/ hypertension-- continue norvasc and Metoprolol 4/ paranoid schizophrenia-- continue meds, he seems to be at baseline 5/Hyperkalemia--to be corrected at dialysis DVT-- no heparin or Lovenox given the profound anemia. Use compression devices full code Need for inaptient: in need of dialysis, anemia that needs transfusion, treatment of hyperkalemia Quality Stroke Does the patient have a stroke diagnosis?: No VTE Prior VTE?: No VTE Risk Level:: Medical - low VTE Device Contraindication: N/A - Device Ordered VTE Drug Contraindication: Treatment Not Tolerated
[2022-07-17] MEDS: 0.9 % Sodium Chloride Flush 3 ML SYRINGE IVFLUSH ×2 (10:03→21:51)
[2022-07-17] MEDS: Cholecalciferol (Vitamin D3) 25 MCG TABLET 125 MCG PO (10:04)
[2022-07-17] MEDS: Sodium Zirconium Cyclosilicate 10 GM POWD.PACK PO (10:04)
[2022-07-17] MEDS: Multivitamin TABLET 1 TAB PO (10:05)
[2022-07-17] MEDS: Perphenazine 4 MG TABLET PO (10:05)
[2022-07-17] MEDS: Paliperidone ER 3 MG TAB.ER.24 PO (10:05)
[2022-07-17] MEDS: Aspirin Enteric Coated 81 MG TABLET.DR PO (10:05)
--- NOTE | 2022-07-17 10:50 | MHC.CLN ---
NUTRITION PATIENT WITH ESRD ON HEMODIALYSIS. CHANGED DIET PER DIALYSIS PARAMETERS. DIET=2 GRAM SODIUM, LOW POTASSIUM, LOW PHOSPHORUS.
[2022-07-17] MEDS: Midodrine HCl 5 MG TABLET PO (11:31)
[2022-07-17] MEDS: Metoprolol Tartrate 25 MG TABLET PO ×2 (11:31→21:50)
[2022-07-17] MEDS: amLODIPine Besylate 5 MG TABLET PO (11:31)
--- NOTE | 2022-07-17 14:10 | MHC.CM.PN ---
EMR REVIEWED AND SPOKE WITH [employer] ZAY. SHE STATES HE IS ACTIVE WITH [employer] [facility]. RETURN REFERRAL SENT. CONTACT TALHA [phone] ([facility]). [employer] ZAY CONFIRMS SHE WILL TRANSPORT WHEN READY TO DISCHARGE.
--- NOTE | 2022-07-17 14:11 | P.PNNP_ITS ---
Subjective Subjective Date of Service: 07/17/22 Interval history: Seen in f/u for missed, dialysis, hi K and anemia interval history:No new issues, H/H better, occult blood is negative. Physical Exam Vital Signs: Vital Signs: Last Vital Signs Temp 97.7 F 07/17/22 11:29 Pulse 64 07/17/22 11:29 Resp 20 07/17/22 11:29 BP 183/84 H 07/17/22 11:29 Pulse Ox 98 07/17/22 11:29 O2 Del Method 07/17/22 11:29 O2 Flow Rate 3 07/17/22 11:29 Oxygen Flow Rate 4 07/14/22 12:39 BMI result Body Mass Index 25.4 Const: General: cooperative and no acute distress Orientation/consciousness: oriented to person and oriented to place Limitations: no limitations HEENT: Head: Yes normal to inspection, Yes normocephalic and Yes atraumatic Ears: external ears normal General nose exam: Normal external nose present Face and sinus: Yes normal facial exam Mouth: Normal oral and palatal mucosa present Throat: Yes posterior oropharynx normal Eyes: General: appearance normal, both eyes and all related structures Pupils: Equal, round and reactive pupils present Neck: Neck: Yes normal visual inspection, Yes no lymphadenopathy, Yes trachea midline and Yes supple Chest: Chest palpation & inspection: normal inspection of the chest and normal palpation of entire chest wall Resp: Effort & Inspection: normal respiratory effort and able to speak in complete sentences Auscultation: clear to auscultation bilaterally Cardio: Rate: regular rate Rhythm: regular rhythm Heart sounds: S1 normal heart sound present, S2 normal heart sound present and no murmurs GI: Inspection: Yes normal to inspection Palpation (GI): Soft to palpation, nontender and no guarding Auscultation: normal bowel sounds : General: Yes no CVA tenderness Back/Spine/Pelvis: Back: no CVA tenderness Skin: General skin exam: no rashes or lesions noted Neuro: General: oriented to person and oriented to place Cranial nerves: Yes CN's II-XII intact bilaterally and Yes Equal, round and reactive pupils present Cognition (Neuro): normal cognition Motor exam (neuro): 5/5 motor strength present throughout Extrem: Other: Left upper arm AV fistula with good thrill and bruit General: Yes normal to inspection Psych: Appearance: grossly normal Speech and movement: Normal speech and movement present Attitude: cooperative Thought content: Paranoid delusions present Objective Data Labs CBC & Chem 7: 07/17/22 07:33 07/16/22 09:27 Labs: Laboratory Results - last 24 hr 07/14/22 07/15/22 07/16/22 17:51 05:48 17:21 WBC RBC Hgb Hct MCV MCH MCHC RDW Plt Count MPV Absolute Nucleated RBC Nucleated RBC % (auto) Smear Path Review SEE NOTE Stool Occult Blood NEGATIVE Crossmatch See Detail 07/17/22 07:33 WBC 10.0 RBC 2.95 L Hgb 9.2 L Hct 28.4 L MCV 96.3 MCH 31.2 MCHC 32.4 RDW 14.9 Plt Count 260 MPV 9.7 Absolute Nucleated RBC 0.000 Nucleated RBC % (auto) 0.0 Smear Path Review Stool Occult Blood Crossmatch Microbiology Microbiology Results: Microbiology 07/14/22 16:10 Urine clean catch - Urine grijalva top Urine Culture - Final Procedures Date of Service Date of Service: 07/17/22 Assessment & Plan Assessment and plan (1) ESRD needing dialysis: Status: Acute (2) Non-compliance with renal dialysis: Status: Acute (3) Anemia: Status: Acute Plan 62-year-old male with hypertension, paranoid schizophrenia, end-stage renal disease, and anemia of chronic disease who presents after missing multiple di alysis and is found to be more anemic than usual. 1/ESRD-- No fluid overload. Plan for dialysis today 2/ Acute on chronic anemia with no evidence of active bleed. Transfused 2 unit during dialysis - stool occult blood if the patient is agreeable.. Hyperkalemia--Lokelma and additional correction at dialysis 3/ hypertension-- resume home med once med rec is done 4/ paranoid schizophrenia-- psych consult pending DVT-- no heparin or Lovenox given the profound anemia. Use compression devices Time Spent With Patient Time: Total time spent is greater than 50% in coordination of care (as documented) at patient's floor/unit and/or counseling patient: Progress Note: Quality Stroke Does the patient have a stroke diagnosis?: No
[2022-07-17] MEDS: Famotidine 20 MG TABLET PO (21:50)
[2022-07-18] VITALS (9 sets, daily range): BP systolic 141–162; BP diastolic 73–84; PULSE 60–85; RESP 16–20; TEMP 36.1–36.4; O2SAT 96–100
--- NOTE | 2022-07-18 07:41 | P.PNIM_ITS ---
Subjective Subjective Date of Service: 07/18/22 Interval History: Seen in f/u for missed, dialysis, hi K and anemia interval history:No new issues, Review of Systems Gen: no fever Resp: no sob, + cough CV: no chest, no MATHEW, no leg edema GI: No n/v, no abd pain Neuro: No confusion Physical Exam Vital Signs: Vital Signs: Last Vital Signs Temp 97.4 F 07/18/22 03:06 Pulse 60 07/18/22 03:06 Resp 20 07/18/22 04:00 BP 141/76 H 07/18/22 03:06 Pulse Ox 97 07/18/22 03:06 O2 Del Method 07/18/22 03:06 O2 Flow Rate 3 07/18/22 03:06 Oxygen Flow Rate 4 07/14/22 12:39 BMI result Body Mass Index 25.4 Const: Other: General: AO X 3, no acute distress Resp: CTA bilateral CVS: S1,S2,RRR GI: +BS, NT, no distention Skin: No rash Neuro: motor grossly intact Psych: appropriate affect Objective Data Active Medications Acetaminophen (Acetaminophen 325 Mg Tablet) 650 mg PO Q6H PRN PRN Reason: Pain, Mild (Pain Scale 1-3) Albuterol Sulfate (Albuterol Sulfate 90 Mcg 8 Gm Inhaler) 2 puff INHALE Q4H PRN PRN Reason: Shortness Of Breath Amlodipine Besylate (Amlodipine Besylate 5 Mg Tablet) 5 mg PO DAILY [facility]; Protocol Last Admin: 07/17/22 11:31 Dose: 5 mg Documented By: JANIS Aspirin (Aspirin Enteric Coated 81 Mg Tablet.Dr) 81 mg PO DAILY [facility] Last Admin: 07/17/22 10:05 Dose: 81 mg Documented By: JANIS Famotidine (Famotidine 20 Mg Tablet) 20 mg PO BEDTIME [facility] Last Admin: 07/17/22 21:50 Dose: 20 mg Documented By: JESSICA Fluticasone Propionate (Fluticasone Propionate 100 Mcg Blst.W.Dev) 1 puff INHALE RBID [facility] Last Admin: 07/17/22 20:51 Dose: 1 puff Documented By: ANIBAL Guaifenesin/Dextromethorphan (Guaifenesin Dm 200/20/10 Ml 10 Ml Syrup) 10 ml PO Q4H PRN PRN Reason: Cough Last Admin: 07/16/22 11:51 Dose: 10 ml Documented By: JAMES Loperamide HCl (Loperamide Hcl 2 Mg Capsule) 2 mg PO TID PRN PRN Reason: Diarrhea Magnesium Hydroxide (Milk Of Magnesia 30 Ml Oral.Susp) 30 ml PO DAILY PRN PRN Reason: Constipation Melatonin (Melatonin 3 Mg Tablet) 6 mg PO BEDTIME PRN PRN Reason: Insomnia Last Admin: 07/15/22 22:32 Dose: 6 mg Documented By: GAETANO Metoprolol Tartrate (Metoprolol Tartrate 25 Mg Tablet) 25 mg PO BID [facility]; Protocol Last Admin: 07/17/22 21:50 Dose: 25 mg Documented By: JESSICA Midodrine (Midodrine Hcl 5 Mg Tablet) 5 mg PO MOWEFR@0900,1800 [facility] Last Admin: 07/17/22 21:19 Dose: Not Given Documented By: JESSICA Non-Admin Reason: Patient Condition Contraindication Multivitamins/Vitamin C (Multivitamin Tablet) 1 tab PO DAILY [facility] Last Admin: 07/17/22 10:05 Dose: 1 tab Documented By: JANIS Nicotine (Nicotine 14 Mg Patch.Td24) 14 mg TRANSDERMA DAILY PRN PRN Reason: Nicotine Cravings Ondansetron HCl (Ondansetron Hcl 4 Mg/2 Ml Vial) 4 mg IVPUSH Q8H PRN PRN Reason: Nausea and Vomiting Paliperidone (Paliperidone Er 3 Mg Tab.Er.24) 3 mg PO DAILY [facility] Last Admin: 07/17/22 10:05 Dose: 3 mg Documented By: JANIS Perphenazine (Perphenazine 4 Mg Tablet) 4 mg PO DAILY [facility] Last Admin: 07/17/22 10:05 Dose: 4 mg Documented By: JANIS Sodium Chloride (0.9 % Sodium Chloride Flush 3 Ml Syringe) [facility] Last Admin: 07/17/22 21:51 Dose: 3 ml Documented By: JESSICA Vitamin D (Cholecalciferol (Vitamin D3) 25 Mcg Tablet) 125 mcg PO DAILY [facility] Last Admin: 07/17/22 10:04 Dose: 125 mcg Documented By: JANIS Labs CBC & Chem 7: 07/17/22 07:33 07/16/22 09:27 Labs: Laboratory Results - last 24 hr 07/15/22 07/17/22 05:48 07:33 MCV 96.3 MCH 31.2 MCHC 32.4 RDW 14.9 Plt Count 260 MPV 9.7 Absolute Nucleated RBC 0.000 Nucleated RBC % (auto) 0.0 Smear Path Review SEE NOTE Assessment and Plan (1) ESRD needing dialysis: Status: Acute (2) Non-compliance with renal dialysis: Status: Acute (3) Anemia: Status: Acute Plan 62-year-old male with hypertension, paranoid schizophrenia, end-stage renal disease, and anemia of chronic disease who presents after missing multiple dialysis and is found to be more anemic than usual. 1/ESRD-- No fluid overload. Dialysis yeserday, next one today 2/ Acute on chronic anemia with no evidence of active bleed. Occult blood is negative. s/p 2 units of RBC with improvement in H/H - stool occult blood is negative.. GI asked to see perhaps can be evaluated on outpatient basis 3/ hypertension-- continue norvasc and Metoprolol 4/ paranoid schizophrenia-- continue meds, he seems to be at baseline 5/Hyperkalemia-- corrected at dialysis DVT-- no heparin or Lovenox given the profound anemia. Use compression devices full code Need for inaptient: in need of dialysis, anemia that needs transfusion, treatment of hyperkalemia possible dc today if no further testing in house Quality Stroke Does the patient have a stroke diagnosis?: No VTE Prior VTE?: No VTE Risk Level:: Medical - low VTE Device Contraindication: N/A - Device Ordered VTE Drug Contraindication: Treatment Not Tolerated
[2022-07-18] MEDS: Fluticasone Propionate 100 MCG BLST.W.DEV 1 PUFF INHALE ×2 (07:48→19:13)
[2022-07-18] MEDS: Paliperidone ER 3 MG TAB.ER.24 PO (08:39)
[2022-07-18] MEDS: Cholecalciferol (Vitamin D3) 25 MCG TABLET 125 MCG PO (08:39)
[2022-07-18] MEDS: Multivitamin TABLET 1 TAB PO (08:39)
[2022-07-18] MEDS: Metoprolol Tartrate 25 MG TABLET PO ×2 (08:39→19:56)
[2022-07-18] MEDS: Perphenazine 4 MG TABLET PO (08:40)
[2022-07-18] MEDS: amLODIPine Besylate 5 MG TABLET PO (08:40)
[2022-07-18] MEDS: Aspirin Enteric Coated 81 MG TABLET.DR PO (08:40)
[2022-07-18] MEDS: 0.9 % Sodium Chloride Flush 3 ML SYRINGE IVFLUSH ×3 (08:41→21:35)
--- NOTE | 2022-07-18 11:05 | P.PNNP_ITS ---
Subjective Subjective Date of Service: 07/31/22 Interval history: Seen in f/u for missed, dialysis, hi K and anemia interval history:No new issues, Physical Exam Vital Signs: Vital Signs: Last Vital Signs Temp 96.9 F 07/18/22 07:44 Pulse 64 07/18/22 07:49 Resp 18 07/18/22 07:49 BP 148/73 H 07/18/22 07:44 Pulse Ox 99 07/18/22 07:44 O2 Del Method 07/18/22 07:44 O2 Flow Rate 2.0 07/18/22 07:44 Oxygen Flow Rate 4 07/14/22 12:39 BMI result Body Mass Index 25.4 Const: General: cooperative and no acute distress Orien tation/consciousness: oriented to person and oriented to place Limitations: no limitations HEENT: Head: Yes normal to inspection, Yes normocephalic and Yes atraumatic Ears: external ears normal General nose exam: Normal external nose present Face and sinus: Yes normal facial exam Mouth: Normal oral and palatal mucosa present Throat: Yes posterior oropharynx normal Eyes: General: appearance normal, both eyes and all related structures Pupils: Equal, round and reactive pupils present Neck: Neck: Yes normal visual inspection, Yes no lymphadenopathy, Yes trachea midline and Yes supple Chest: Chest palpation & inspection: normal inspection of the chest and normal palpation of entire chest wall Resp: Effort & Inspection: normal respiratory effort and able to speak in complete sentences Auscultation: clear to auscultation bilaterally Cardio: Rate: regular rate Rhythm: regular rhythm Heart sounds: S1 normal heart sound present, S2 normal heart sound present and no murmurs GI: Inspection: Yes normal to inspection Palpation (GI): Soft to palpation, nontender and no guarding Auscultation: normal bowel sounds : General: Yes no CVA tenderness Back/Spine/Pelvis: Back: no CVA tenderness Skin: General skin exam: no rashes or lesions noted Neuro: General: oriented to person and oriented to place Cranial nerves: Yes CN's II-XII intact bilaterally and Yes Equal, round and reactive pupils present Cognition (Neuro): normal cognition Motor exam (neuro): 5/5 motor strength present throughout Extrem: Other: Left upper arm AV fistula with good thrill and bruit General: Yes normal to inspection Psych: Appearance: grossly normal Speech and movement: Normal speech and movement present Attitude: cooperative Thought content: Paranoid delusions present Objective Data Labs CBC & Chem 7: 07/17/22 07:33 07/19/22 11:09 Microbiology Microbiology Results: Microbiology 07/14/22 16:10 Urine clean catch - Urine grijalva top Urine Culture - Final Procedures Date of Service Date of Service: 07/18/22 Assessment & Plan Assessment and plan (1) ESRD needing dialysis: Status: Inactive (2) Non-compliance with renal dialysis: Status: Acute (3) Anemia: Status: Resolved Plan 62-year-old male with hypertension, paranoid schizophrenia, end-stage renal disease, and anemia of chronic disease who presents after missing multiple dialysis and is found to be more anemic than usual. 1/ESRD-- No fluid overload. Plan for dialysis MWF 2/ Acute on chronic anemia with no evidence of active bleed. Transfused 2 unit during dialysis - stool occult blood if the patient is agreeable.. Hyperkalemia--Lokelma and additional correction at dialysis K normalized 3/ hypertension-- resume home med once med rec is done 4/ paranoid schizophrenia-- psych consult pending DVT-- no heparin or Lovenox given the profound anemia. Use compression devices Time Spent With Patient Time: Total time spent is greater than 50% in coordination of care (as documented) at patient's floor/unit and/or counseling patient: Progress Note: Quality Stroke Does the patient have a stroke diagnosis?: No
[2022-07-18] MEDS: Famotidine 20 MG TABLET PO (19:57)
[2022-07-19] VITALS: BP 170/92; PULSE 76; RESP 18; TEMP 36.1; O2SAT 97
[2022-07-19 04:00] VITALS: BP 158/78; PULSE 71; RESP 18; TEMP 36.1; O2SAT 98
[2022-07-19 08:00] VITALS: BP 181/85; PULSE 79; RESP 18; TEMP 36.3; O2SAT 97
[2022-07-19] MEDS: Fluticasone Propionate 100 MCG BLST.W.DEV 1 PUFF INHALE (08:08)
[2022-07-19 08:15] VITALS: PULSE 76; RESP 18; O2SAT 97
--- NOTE | 2022-07-19 08:39 | PC.NURSE ---
Patient to dialysis at this time.
--- NOTE | 2022-07-19 10:08 | P.DS_ITS ---
DS: Providers Provider Date of Service: 07/19/22 Date of admission: 07/14/22 17:28 Primary care physician: Sal Valencia MD Consults: 07/14/22 16:01 Consult to Psychiatry Stat Consulting Provider: Psych Covering Reason for consultation: Paranoid schizophrenia, refused dialysis x2 paranoid ideation, med admit Has provider been notified: No 07/14/22 16:04 Consult to Nephrology Stat Consulting Provider: Umang Owen Reason for consultation: Missed dialysis Sunday and today (Sunday), paranoid ideation, anemia Has provider been notified: Yes 07/16/22 17:40 Consult to Gastroenterology Routine Consulting Provider: Marcos Farnsworth Reason for consultation: Anemia, +occult blood Has provider been notified: No DS: Diagnosis Discharge Diagnosis (1) Non-compliance with renal dialysis: Status: Acute (2) Anemia: Status: Resolved DS: Summary Hospital Course Hospital Course: Chief Complaint: missed dialysis 62-year-old male with? paranoia schizophrenia, hypertension, end-stage renal disease on dialysis Sunday he has missed the last dialysis sections because he has been hearing voices telling him not to go to dialysis.? He has no signs of fluid overload or shortness of breath.? His potassium is 5.3.? His hemoglobin is 6 and hematocrit of 18.? He declined rectal exam Karla deny any use blood? in the stool--? He has anemia of chronic disease his last hematocrit was 28 back in January of this year.? Nephrology has been contacted and they advised dialysis tomorrow with a 2 units of RBC during dialysis. hospital course: Patient was admitted due to missing dialysis with fluid overload and hyperkalemia and was found to have profound anemia with hematocrit of 18 but no source of bleed. He underwent urgent dialysis and has been having dialysis since then by his usual schedule. To resume outpatient dialysis as before Anemia--he probably had anemia of chronic disease and possibly acute blood loss, occult blood is negative. He has been transfused 2 units of RBC and H/H has been stable. GI is recommending outpatient work up with possible upper and lower endoscopy.. There was an incident of blood in the urine but quickly resolved and has not been an issue--we recommend outpatient urology follow up Time Spent with Patient Time attestation: Total time spent providing and/or coordinating discharge services: Discharge coordination time: Greater than 30 minutes Quality: Safe Use of Opioids Does Pt have an Active Cancer Diagnosis on the Problem List?: No Quality: Stroke Does the patient have a stroke diagnosis?: No Physical Exam Vital Signs: Vital Signs: Last Vital Signs Temp 97.3 F 07/19/22 08:00 Pulse 76 07/19/22 08:15 Resp 18 07/19/22 08:15 BP 181/85 H 07/19/22 08:00 Pulse Ox 97 07/19/22 08:00 O2 Del Method 07/19/22 08:00 O2 Flow Rate 2 07/19/22 08:00 Oxygen Flow Rate 4 07/14/22 12:39 BMI result Body Mass Index 25.4 DS: Data Data Completed and Pending Completed studies during hospitalization [Text1]: Procedures Insertion of Endotracheal Airway into Trachea, Via Natural or Artificial Opening Endoscopic (08/31/20) Introduction of Vasopressor into Peripheral Artery, Percutaneous Approach (08/31/20) Performance of Urinary Filtration, Intermittent, Less than 6 Hours Per Day (08/31/20) Respiratory Ventilation, Less than 24 Consecutive Hours (08/31/20) Discharge Plan Discharge Anticipated Discharge Date/Time: 07/19/22 09:51 Patient Disposition: Home, Self-Care Discharge Diagnosis: Missed dialysis, anemia Referrals: [facility] [Other] - 1 Day ([facility] ) Yohan Copeland MD [Physician] - 2 Weeks Marcos Farnsworth MD [Physician] - 2 Weeks Sal Valencia MD [Primary Care Provider] - 1 Week Discharge Medications: Continued loperamide 2 mg Capsule 2 mg PO TID PRN (Reason: Diarrhea) aspirin 81 mg Tablet,Delayed Release (Dr/Ec) 81 mg PO DAILY famotidine 20 mg Tablet 20 mg PO BEDTIME furosemide 80 mg Tablet 80 mg PO DAILY perphenazine 4 mg Tablet 4 mg PO DAILY [place] Caps 1 mg Capsule 1 cap PO DAILY fluticasone propionate [Flovent HFA] 110 mcg/actuation Hfa Aerosol Inhaler 1 puff INHALATION BID paliperidone 3 mg Tablet Extended Release 24hr 3 mg PO DAILY multivitamin Tablet 1 tab PO DAILY omega-3 fatty acids 1,000 mg capsule 1 cap PO BID midodrine 5 mg tablet 5 mg PO MOWEFR@0900,1800 Rx Instructions: before and after dialysis amlodipine 5 mg tablet 5 mg PO DAILY Protocol: Hold for SBP< HOLD for SBP < : 90 cholecalciferol (vitamin D3) 125 mcg (5,000 unit) tablet 125 mcg PO DAILY nicotine 14 mg/24 hr patch 24 hour 1 patch transdermal DAILY PRN (Reason: Nicotine Cravings) No Action metoprolol tartrate 50 mg Tablet 50 mg PO BID Qty: 60 0RF Protocol: Hold for SBP/HR < HOLD for SBP < : 90 HOLD for HR < : 60 Discharge Orders: Discharge Order (Routine); Ordered 07/19/22 Ordered By: Deacon Silva Diet: Advance to usual diet Activity on Discharge: As tolerated Stand Alone Forms: Patient Portal Discharge page Care Plan Goals: Full work up for anemia, Health Concerns: anemia ESRD Plan of Treatment: follow up with GI for anemia work up Follow up with Dr. Farnsworth in the office for EGD Follow up with urology Dr. Copeland for hematuria Assessment: bryson colbert Discharge Date/Time: 07/19/22 19:10
--- NOTE | 2022-07-19 11:18 | W.PM.DNNEP ---
Subjective Subjective This patient was seen during dialysis. Physical Exam Vital Signs: Vital Signs: Last Vital Signs Temp 97.3 F 07/19/22 08:00 Pulse 76 07/19/22 08:15 Resp 18 07/19/22 08:15 BP 181/85 H 07/19/22 08:00 Pulse Ox 97 07/19/22 08:00 O2 Del Method 07/19/22 08:00 O2 Flow Rate 2 07/19/22 08:00 Oxygen Flow Rate 4 07/14/22 12:39 BMI result Body Mass Index 25.4 Const: General: cooperative and no acute distress Orientation/consciousness: oriented to person and oriented to place Limitations: no limitations HEENT: Head: Yes normal to inspection, Yes normocephalic and Yes atraumatic Ears: external ears normal General nose exam: Normal external nose present Face and sinus: Yes normal facial exam Mouth: Normal oral and palatal mucosa present Throat: Yes posterior oropharynx normal Eyes: General: appearance normal, both eyes and all related structures Pupils: Equal, round and reactive pupils present Neck: Neck: Yes normal visual inspection, Yes no lymphadenopathy, Yes trachea midline and Yes supple Chest: Chest palpation & inspection: normal inspection of the chest and normal palpation of entire chest wall Resp: Effort & Inspection: normal respiratory effort and able to speak in complete sentences Auscultation: clear to auscultation bilaterally Cardio: Rate: regular rate Rhythm: regular rhythm Heart sounds: S1 normal heart sound present, S2 normal heart sound present and no murmurs GI: Inspection: Yes normal to inspection Palpation (GI): Soft to palpation, nontender and no guarding Auscultation: normal bowel sounds : General: Yes no CVA tenderness Back/Spine/Pelvis: Back: no CVA tenderness Skin: General skin exam: no rashes or lesions noted Neuro: General: oriented to person and oriented to place Cranial nerves: Yes CN's II-XII intact bilaterally and Yes Equal, round and reactive pupils present Cognition (Neuro): normal cognition Motor exam (neuro): 5/5 motor strength present throughout Extrem: General: Yes normal to inspection Psych: Appearance: grossly normal Speech and movement: Normal speech and movement present Attitude: cooperative Thought content: Paranoid delusions present Assessment & Plan Assessment and plan (1) ESRD needing dialysis: Status: Inactive (2) Non-compliance with renal dialysis: Status: Acute (3) Anemia: Status: Resolved Plan On HD 3 x week No s/s of uremia Continue HD MWF Time Spent With Patient Time: Total time spent is greater than 50% in coordination of care (as documented) at patient's floor/unit and/or counseling patient: Procedures Date of Service Date of Service: 07/19/22
[2022-07-19 11:40] LABS: Creatinine Clr Calc Pharmacy 27.4; Estimated Glomerular Filt Rate 21; Glucose Random 112 mg/dL (60-115)
[2022-07-19 11:55] LABS: Anion Gap 16 (12-20); Blood Urea Nitrogen 26 mg/dL (9-16); Calcium 7.8 mg/dL (8.4-10.2); Carbon Dioxide 21 mmol/L (22-29); Chloride 96 mmol/L (96-108); Potassium 3.5 mmol/L (3.3-5.1); Sodium 129 mmol/L (135-145)
[2022-07-19 13:50] VITALS: BP 154/65; PULSE 73; RESP 14; O2SAT 100
--- NOTE | 2022-07-19 13:55 | PC.NURSE ---
patient back from dialysis at this time
[2022-07-19] MEDS: Midodrine HCl 5 MG TABLET PO ×2 (13:56→17:05)
[2022-07-19] MEDS: Metoprolol Tartrate 25 MG TABLET PO (13:56)
[2022-07-19] MEDS: Multivitamin TABLET 1 TAB PO (13:56)
[2022-07-19] MEDS: Aspirin Enteric Coated 81 MG TABLET.DR PO (13:56)
[2022-07-19] MEDS: Paliperidone ER 3 MG TAB.ER.24 PO (13:57)
[2022-07-19] MEDS: amLODIPine Besylate 5 MG TABLET PO (13:57)
[2022-07-19] MEDS: Perphenazine 4 MG TABLET PO (13:57)
[2022-07-19] MEDS: Cholecalciferol (Vitamin D3) 25 MCG TABLET 125 MCG PO (13:57)
--- NOTE | 2022-07-19 15:05 | MHC.CM.PN ---
Addendum entered by Dayna Abrams RN 07/19/22 15:43: CM RECEIVED CALL BACK FROM [facility] NURSE WHO REPORTS PT USES [facility] NOT [facility] FOR HOME O2 AND STAFF WILL PICK PT UP BETWEEN 6-6:30PM THIS EVENING. Original Note: PT DISCHARGING BACK TO [facility], [facility] WORKER TO TRANSPORT (WILL CM BACK W/TIME, CM REQUESTED 4PM), PER [facility] NURSE ZAY REPORTS PT ONLY MISSED ONE DAY OF DIALYSIS LAST SUNDAY D/T PT REFUSING TO GO AND DIALYSIS NURSE INSTRUCTED [facility] NURSE TO SEND PT TO ED D/T HAVING LARGE AMTS OF FLUID REMOVED DURING PREVIOUS HD APPTS. RESPIRATORY WILL BRING [facility]ANER TANK PT IS ON CONT HOME O2. [facility] NOTIFIED.
[2022-07-19 15:12] VITALS: BP 144/74; PULSE 78; RESP 18; TEMP 37; O2SAT 98
== END 2022-07-19 19:10 | disposition home or self-care (01) | DRG 470 ==
LOC: HO.ED 16:08 → HO.EDOVER 17:32 → HO.S3 17:42
PROVIDERS: Internal Medicine Nephrology; Admitting Provider Internal Medicine; Emergency Provider Emergency Medicine Emergency Medical Services; PCP Internal Medicine; Visit Provider Internal Medicine
DX: I12.0 Hypertensive chronic kidney disease with stage 5 chronic kidney disease or end stage renal disease (principal); N18.6 End stage renal disease; D63.1 Anemia in chronic kidney disease; F20.0 Paranoid schizophrenia; R31.9 Hematuria, unspecified; E87.5 Hyperkalemia; Z20.822 Contact with and (suspected) exposure to COVID-19; Z79.51 Long term (current) use of inhaled steroids; Z86.16 Personal history of COVID-19; Z91.15 Patient's noncompliance with renal dialysis; Z87.891 Personal history of nicotine dependence; Z79.82 Long term (current) use of aspirin; Z79.899 Other long term (current) drug therapy
CPT/HCPCS: 36415; 36430; 80048; 80053; 80307; 81001; 81003; 82077; 82272; 83690; 83880; 84484; 85025; 85027; 85610; 85730; 86850; 86900; 86901; 86923; 87086; 87502; 87635; 90935; 90999; 93005; 94640; 99218; 99285; P9016

== ENCOUNTER → 2022-07-14 17:28 | Outpatient (BNV) | payer OTHER, SELFPAY | PROVIDERS: Admitting Provider Internal Medicine; Emergency Provider Emergency Medicine Emergency Medical Services; PCP Internal Medicine; Visit Provider Internal Medicine | DX: Z91.15 Patient's noncompliance with renal dialysis (principal); D64.9 Anemia, unspecified ==

== ENCOUNTER 2022-09-07 11:42 | Outpatient (REF) | payer OTHER, SELFPAY ==
[2022-09-07 13:57] LABS: MANUAL DIFF FLAG NO
[2022-09-07 13:59] LABS: Basophils Percent Auto 0.5 % (0-2); Eosinophils Absolute Auto 0.1 X10*3/uL (0.0-0.4); Hematocrit 30.5 % (42.0-52.0); Hemoglobin 9.3 g/dl (14.0-18.0); Imm Gran Pct Auto 1.2 % (0.0-0.4); Lymphocytes Absolute Auto 0.9 X10*3/uL (1.2-4.9); Lymphocytes Percent Auto 10.9 % (20-40); Mean Corpuscular HGB Conc 30.5 g/dl (31.0-36.0); Mean Corpuscular Volume 101.7 fL (80.0-98.0); Mean Platelet Volume 9.9 fL (9.4-12.4); Monocytes Absolute Auto 0.7 X10*3/uL (0.1-1.2); Monocytes Percent Auto 8.9 % (2-11); Neutrophils Absolute Auto 6.4 x10*3/uL (2.0-8.3); Neutrophils Percent Auto 77.5 % (45-73); Platelet Count 237 X10*3/uL (160-400); Red Cell Distribution Width 15.1 % (11.0-16.0); White Blood Count 8.2 X10*3/uL (4.8-10.8)
[2022-09-07 14:01] LABS: Urine Cytology See Pathology rpt
[2022-09-07 14:14] LABS: Estimated Average Glucose 88 mg/dL; Hemoglobin A1c % 4.7 %
[2022-09-07 14:44] LABS: Alanine Aminotransferase 19 U/L (0-40); Albumin Level 3.7 g/dL (3.5-5.0); Alkaline Phosphatase 75 U/L (39-117); Anion Gap 17 (12-20); Aspartate Amino Transferase 17 U/L (5-37); Bilirubin Total 0.3 mg/dL (0.0-1.0); Blood Urea Nitrogen 40 mg/dL (9-16); Calcium 9.8 mg/dL (8.4-10.2); Carbon Dioxide 30 mmol/L (22-29); Chloride 92 mmol/L (96-108); Estimated Glomerular Filt Rate 12; Glucose Random 149 mg/dL (60-115); Iron 60 mcg/dL (45-160); Percent Iron Saturation 35 % (15-50); Potassium 5.2 mmol/L (3.3-5.1); Sodium 134 mmol/L (135-145); Total Iron Binding Capacity 171 mcg/dL (228-428); Total Protein 6.7 g/dL (6.5-8.0); Unsaturated Iron Binding 111 ug/dL
== END 2022-09-07 11:43 | disposition home or self-care (01) ==
LOC: HO.10HDL 11:42
PROVIDERS: Visit Provider Internal Medicine
DX: R73.03 Prediabetes (principal); D64.9 Anemia, unspecified; R31.9 Hematuria, unspecified; R63.4 Abnormal weight loss
CPT/HCPCS: 36415; 80053; 83036; 83540; 85025; 88112

== ENCOUNTER 2022-10-30 17:21 | Outpatient (REF) | payer OTHER, SELFPAY ==
[2022-10-30 17:55] LABS: MANUAL DIFF FLAG NO
[2022-10-30 18:01] LABS: Basophils Absolute Auto 0.1 X10*3/uL (0.0-0.2); Basophils Percent Auto 0.8 % (0-2); Eosinophils Absolute Auto 0.2 X10*3/uL (0.0-0.4); Eosinophils Percent Auto 1.8 % (0-4); Hematocrit 40.3 % (42.0-52.0); Hemoglobin 12.9 g/dl (14.0-18.0); Imm Gran Abs Auto 0.02 X10*3/uL (0.00-0.03); Imm Gran Pct Auto 0.2 % (0.0-0.4); Lymphocytes Absolute Auto 1.3 X10*3/uL (1.2-4.9); Lymphocytes Percent Auto 14.9 % (20-40); Mean Corpuscular Hemoglobin 31.2 pg (27.0-33.0); Mean Corpuscular Volume 97.3 fL (80.0-98.0); Mean Platelet Volume 10.1 fL (9.4-12.4); Monocytes Absolute Auto 0.9 X10*3/uL (0.1-1.2); Monocytes Percent Auto 10.1 % (2-11); Neutrophils Absolute Auto 6.3 x10*3/uL (2.0-8.3); Neutrophils Percent Auto 72.2 % (45-73); Platelet Count 218 X10*3/uL (160-400); Red Blood Count 4.14 X10*6/uL (4.60-5.80); Red Cell Distribution Width 14.3 % (11.0-16.0); White Blood Count 8.8 X10*3/uL (4.8-10.8)
[2022-10-30 18:10] LABS: INTERNATIONAL NORM RATIO 0.9 (0.9-1.1); Prothrombin Time 10.7 SEC (10.0-13.1)
[2022-10-30 18:11] LABS: Appearance Urine Turbid; Glucose Urine UA Negative (Negative); Leukocyte Esterase Urine Small (1+) (Negative); Nitrite Urine Negative (Negative); UMIC TRIGGER UACC YES; Urine Blood Large (3+) (Negative); Urine Ketones Negative (Negative); Urine Protein 300 (3+) mg/dL (Neg-Trace)
[2022-10-30 18:15] LABS: Color Urine RED
[2022-10-30 18:16] LABS: Bacteria Urine 1+ (None Seen); Hyaline Casts Urine 0-2 /LPF (0-2); RBC Urine >20 /HPF (0-2); UACC Culture Trigger YES; WBC Urine 0-5 /HPF (0-5)
[2022-10-30 20:22] LABS: Anion Gap 20 (12-20); Blood Urea Nitrogen 22 mg/dL (9-16); Calcium 9.3 mg/dL (8.4-10.2); Carbon Dioxide 29 mmol/L (22-29); Chloride 92 mmol/L (96-108); Estimated Glomerular Filt Rate 12; Glucose Random 102 mg/dL (60-115); Potassium 4.6 mmol/L (3.3-5.1); Sodium 136 mmol/L (135-145)
== END 2022-10-30 17:22 | disposition home or self-care (01) ==
LOC: HO.LAB 17:21
PROVIDERS: PCP Internal Medicine; Visit Provider Urology
DX: D49.4 Neoplasm of unspecified behavior of bladder (principal)
CPT/HCPCS: 36415; 80048; 81001; 85025; 85610; 85730; 87086

== ENCOUNTER 2023-01-08 09:56 | Inpatient (IN) | payer OTHER, SELFPAY ==
[2023-01-08] VITALS (46 sets, daily range): BP systolic 74–172; BP diastolic 05–89; PULSE 59–154; RESP 10–24; TEMP 35–36.9; O2SAT 55–99; BMI 28.2; BMI 28.0
--- NOTE | ~2023-01-08 | XR_ITS ---
EXAMINATION: XR CHEST CLINICAL INFORMATION: Central line placement confirmation. COMPARISON: Prior chest performed earlier same day 10:53 AM. TECHNIQUE: Frontal view of the chest was obtained. FINDINGS: Left central venous catheter noted with tip in the region of the SVC at the level of the aortic knob. Endotracheal tube remains in place with tip 5.4 cm above nellie. Emphysema unchanged with bullous changes most evident in the upper lobes. No pneumothorax. Bilateral patchy lung opacities noted throughout both lungs most prominent mid and lower lung zones. Opacity in the right upper lobe likely reflects pleural thickening unchanged compared to prior. Cardiomediastinal silhouette unremarkable XR/XR chest 1V IMPRESSION: 1. Left central venous catheter noted with tip in the region of the SVC at the level of the aortic knob. No pneumothorax 2. Endotracheal tube 5.4 cm above nellie. 3. Emphysema. 4. Bilateral patchy lung opacities unchanged.
--- NOTE | ~2023-01-08 | CT_ITS ---
EXAMINATION: CT HEAD WITHOUT CONTRAST CLINICAL INFORMATION: AMS, intubated. COMPARISON: None available. TECHNIQUE: Contiguous axial imaging was performed from the skull base to vertex without intravenous administration of contrast. This CT examination was performed using dose optimization techniques as appropriate, variously including the following: *Automated exposure control *Adjustment of mA and/or kV according to patient size (this includes techniques or standardized protocols for targeted exams where dose is matched to indication/reason for exam; i.e. extremities or head) *Use of iterative reconstruction technique DLP: 1133 mGy-cm FINDINGS: Limited exam due to patient motion. There is no acute intra-axial, extra-axial bleed, masses or midline shift. There is no acute infarction evolution. There is no edema. The lateral ventricles are symmetrical but moderately dilated. Wilson to white matter difference is maintained normal. Bone windows reveal no calvarial abnormality. No scalp soft tissue abnormality seen. There is mild mucoperiosteal thickening of bilateral ethmoid sinuses. CT/CT head/brain wo IV con IMPRESSION: No acute intracranial process seen
--- NOTE | ~2023-01-08 | XR_ITS ---
EXAMINATION: XR CHEST CLINICAL INFORMATION: Intubated. Respiratory failure. COMPARISON: Previous chest x-ray August 2020 TECHNIQUE: Frontal view of the chest was obtained. FINDINGS: There is an endotracheal tube with tip 8 cm above the nellie. The cardiac and mediastinal contours are stable. There is evidence of COPD. There is bilateral perihilar and lower lung airspace disease. Differential would include pulmonary edema and pneumonia. There are stable small pulmonary nodules in the left upper lobe compared with CT scan corresponding to calcified nodules probably representing calcified granulomas. Stable 1 x 1.5 cm density in the right upper lobe projecting over the medial right clavicle. Compare with previous CT this may correspond to focal pleural thickening. No pleural effusion or pneumothorax. Mild degenerative changes of the spine. XR/XR chest 1V IMPRESSION: Endotracheal tube 8 cm above the nellie. Bilateral perihilar and lower lobe airspace disease. Differential would include pulmonary edema and pneumonia. COPD.
--- NOTE | 2023-01-08 10:12 | ECG_ITS ---
Test Reason : sob Blood Pressure : / mmHG Vent. Rate : 089 BPM Atrial Rate : 089 BPM P-R Int : 198 ms QRS Dur : 114 ms QT Int : 358 ms P-R-T Axes : 067 -04 081 degrees QTc Int : 435 ms Normal sinus rhythm Normal ECG When compared with ECG of 14-JUL-2022 13:27, QRS duration has increased Referred By: Mati Bynum Electronically Signed By:STEVE TEIXEIRA
--- NOTE | 2023-01-08 10:18 | ED_ITS ---
HPI - General Adult General Chief complaint: Dyspnea Stated complaint: RESP FAILURE Time Seen by Provider: 01/08/23 10:10 Source: EMS Mode of arrival: EMS Limitations: altered mental status History of Present Illness HPI narrative: 62-year-old male presents with acute respiratory failure. Patient was last seen yesterday normally. Is normally alert and oriented conversant. Today, his visiting nurse came to evaluate him. She was unable to get him to respond. 911 was contacted. He initially responded verbally but was found to be gasping for breath and hypoxic. On arrival, he was being bagged by medics. He is hypertensive, altered mentally, tachypneic with gasping respirations. Additional history is not available at this time. He is an end-stage renal patient on dialysis. Unknown when he last dialyzed. Related Data Home Medications Medication Instructions Recorded Confirmed albuterol sulfate 90 mcg/actuation 2 puff inhalation Q4-6H PRN 08/31/20 01/08/23 aerosol inhaler (ProAir HFA) Shortness Of Breath aspirin 81 mg tablet,delayed 81 mg PO DAILY 08/31/20 01/08/23 release famotidine 20 mg tablet 20 mg PO BEDTIME 08/31/20 01/08/23 fluticasone propionate 110 1 puff inhalation BID 08/31/20 01/08/23 mcg/actuation HFA aerosol inhaler (Flovent HFA) furosemide 80 mg tablet 80 mg PO DAILY 08/31/20 01/08/23 loperamide 2 mg capsule 2 mg PO TID PRN Diarrhea 08/31/20 01/08/23 metoprolol tartrate 50 mg tablet 25 mg PO BID 08/31/20 01/08/23 paliperidone 3 mg tablet,extended 3 mg PO DAILY 08/31/20 01/08/23 release 24 hr perphenazine 4 mg tablet 4 mg PO DAILY 08/31/20 01/08/23 vitamin B complex and vitamin C 1 cap PO DAILY 08/31/20 01/08/23 no.20-folic acid 1 mg capsule ([place] Caps) cholecalciferol (vitamin D3) 125 125 mcg PO DAILY 01/13/21 01/08/23 mcg (5,000 unit) tablet nicotine 14 mg/24 hr daily 1 patch transdermal DAILY PRN 01/13/21 01/08/23 transdermal patch Nicotine Cravings amlodipine 5 mg tablet 5 mg PO DAILY 07/14/22 01/08/23 midodrine 5 mg tablet 5 mg PO MOWEFR@0900,1800 07/14/22 01/08/23 multivitamin 1 tab PO DAILY 07/14/22 01/08/23 omega-3 fatty acids 1,000 mg 1 cap PO BID 07/14/22 01/08/23 capsule Allergies Allergy/AdvReac Type Severity Reaction Status Date / Time thioridazine [From MELLARIL] Allergy Unknown TONGUE Verified 05/04/21 10:08 SWELLING mellaril Allergy Severe anaphylaxis Uncoded 05/04/21 10:08 [facility] Past Medical History Medical History (Updated 01/08/23 @ 13:51 by Juan Manuel Holloway MD) Chronic paranoid schizophrenia COVID-19 End stage renal disease ESRD needing dialysis HTN (hypertension) Paranoid ideation Social History Social History Household Members: None Household Members Other:: self Housing: Apartment Do you presently have visiting nurse or other home services: Yes Alcohol intake: unknown Patient Tobacco Use Status: Former Tobacco user Tobacco use type: Cigarette e-Cigarette/Vaping Use: Never Used Second Hand Smoke Exposure: No Use of substances other than those prescribed or required for medical reasons: Unable to respond Advance Directives: Yes Advance Directives on File: Yes Advance Directives Date on File: 08/31/20 service: No Current occupational status: disabled Physical Exam ED Vital Signs: Vital Signs - 24 hr 01/08/23 10:02 01/08/23 10:18 01/08/23 10:26 Temperature Pulse Rate 86 86 Respiratory Rate 10 L 18 Blood Pressure 160/69 H 172/82 H Pulse Oximetry 66 L 94 Oxygen Delivery Method Room Air Oxygen Flow Rate Fraction of Inspired Oxygen 50 01/08/23 10:30 01/08/23 10:37 01/08/23 10:43 Temperature 96.1 F L 97.9 F Pulse Rate 85 74 71 Respiratory Rate 20 20 20 Blood Pressure 122/63 74/36 L 84/45 L Pulse Oximetry 91 L 92 97 Oxygen Delivery Method Mechanical Ventilation Mechanical Ventilation Oxygen Flow Rate Fraction of Inspired Oxygen 01/08/23 10:58 01/08/23 11:15 01/08/23 11:20 Temperature 97 F Pulse Rate 67 64 62 Respiratory Rate 19 23 H 24 H Blood Pressure 94/05 L 89/50 L 93/48 L Pulse Oximetry 90 L 92 91 L Oxygen Delivery Method Mechanical Ventilation Mechanical Ventilation Oxygen Flow Rate 100 Fraction of Inspired Oxygen 01/08/23 11:38 01/08/23 11:49 01/08/23 12:06 Temperature 97.2 F Pulse Rate 61 61 60 Respiratory Rate 24 H 24 H 24 H Blood Pressure 82/47 L 86/48 L 92/50 L Pulse Oximetry 96 92 99 Oxygen Delivery Method Mechanical Ventilation Mechanical Ventilation Oxygen Flow Rate 100 Fraction of Inspired Oxygen 01/08/23 12:08 01/08/23 12:25 01/08/23 12:41 Temperature 97.3 F Pulse Rate 60 59 61 Respiratory Rate 24 H 24 H 24 H Blood Pressure 92/50 L 103/58 L 100/53 L Pulse Oximetry 98 94 96 Oxygen Delivery Method Mechanical Ventilation Oxygen Flow Rate 100 Fraction of Inspired Oxygen 01/08/23 12:51 01/08/23 13:12 01/08/23 13:19 Temperature 97.5 F Pulse Rate 61 67 74 Respiratory Rate 24 H 24 H 18 Blood Pressure 105/44 L 108/46 L Pulse Oximetry 92 90 L Oxygen Delivery Method Mechanical Ventilation Oxygen Flow Rate 100 Fraction of Inspired Oxygen 01/08/23 13:22 Temperature Pulse Rate 74 Respiratory Rate Blood Pressure 104/41 L Pulse Oximetry Oxygen Delivery Method Oxygen Flow Rate Fraction of Inspired Oxygen BMI result Body Mass Index 28.2 GEN: Altered mental status, gasping respirations, a rapid shallow breathing HEENT: Normocephalic, atraumatic, normal external ears, nose appears normal, no oropharyngeal edema or exudates Eyes: Normal to appearance Neck: Supple, no lymphadenopathy Respiratory: Decreased breath sounds throughout anteriorly, tachypneic, shallow breathing Cardiovascular: Distant and tachycardic Abdomen: Soft, nontender, nondistended, no guarding, no rebound, reducible umbilical hernia Back: No CVA tenderness Extremities: No clubbing cyanosis or edema Neurologic: Unable to fully assess Skin: No rash Course Course Course Narrative: 62-year-old male with end-stage renal disease, apparent chronic obstructive pulmonary disease, presents with acute respiratory failure. He was intubated upon arrival. IC was already been contacted. Workup is underway. Reevaluation(s) Reevaluation #1: became hypotensive, likely d/t prop push, giving 500 cc bolus, reducing sedation, reducing PEEP. Time: 10:42 Reevaluation #2: Patient has become bradycardic. This was following an attempted OG tube placement. Suspect vasovagal. Will repeat an EKG to evaluate. Patient is also noted to have UTI. Ordered ceftriaxone. Time: 11:03 Reevaluation #3: Heart rate is currently improved. EKG showed normal sinus rhythm heart rate 66, no acute ST elevations depressions, previously seen prominent T-waves have now improved. Patient has been started on a fentanyl drip. Time: 11:15 Additional Reevaluation(s): patient with hyperkalemia, tratment includes, albuterol, bicarb, insulin, dextrose, calcium gluconate Troponin elevation, acute on chronic + kidney failure, doubt acute unstable plaque, no ST elevations. Has acute on chronic macrocytic anemia. Likely multifactorial. T&S in lab. Central line placement confirmed on CXR. OK to use. 13:30 paging nephrology,ICU writing orders. Noted: No 30 cc/kg bolus provided as patient unlikely to be in septic shock. Hypotension most likely result of propofol and vent with PEEP. Patient already in fluid overload as indicated by CXR. Nephrology to arrange dialysis. Medications Administered Generic Name Dose Route Start Last Admin Trade Name Freq PRN Reason Stop Dose Admin Fentanyl 100 mcg 01/08/23 10:40 01/08/23 10:46 Fentanyl Citrate/Pf 100 Mcg/2 Ml Vial IVPUSH 100 mcg Q30M PRN Administration Sedation Protocol Heparin Sodium (Porcine) 5,000 unit 01/08/23 13:30 01/08/23 13:42 Heparin Sodium,Porcine 5,000 Unit/Ml Vial SUBCUT 5,000 unit Q8H RAJUN Administration Propofol 1,000 mg in 100 mls @ 0 mls/hr 01/08/23 10:15 01/08/23 14:06 Diprivan IVCONT 50 mcg/kg/min .Q0M ARJUN 24.48 mls/hr Administration Protocol Per Protocol Fentanyl 1,000 mcg in 100 mls @ 0 mls/hr 01/08/23 11:15 01/08/23 14:07 Sublimaze/Ns IVCONT 75 mcg/hr .Q0M ARJUN 7.5 mls/hr Titration Protocol Per Protocol Norepinephrine Bitartrate 8 mg in 250 mls @ 0 mls/hr 01/08/23 11:45 01/08/23 13:22 Levophed IV 0.05 mcg/kg/min .Q0M ARJUN 7.65 mls/hr Administration Protocol Per Protocol Discontinued Medications Generic Name Dose Route Start Last Admin Trade Name Wally PRN Reason Stop Dose Admin Albuterol Sulfate 10 mg 01/08/23 12:37 01/08/23 12:51 Albuterol Sulfate (0.083%) 2.5 Mg/3 Ml Vial.Neb INHALE 01/08/23 12:38 10 mg ONCE ONE Administration Dextrose 50 gm 01/08/23 13:00 01/08/23 13:08 Dextrose 50 % 25 Gm/50 Ml Syringe IVPUSH 01/08/23 13:01 50 gm ONCE ONE Administration Etomidate 20 mg 01/08/23 11:01 01/08/23 11:08 Etomidate 20 Mg/10 Ml Vial IVPUSH 01/08/23 11:02 20 mg ONCE ONE Administration Sodium Chloride 500 mls @ 500 mls/hr 01/08/23 10:45 01/08/23 12:05 Ns IV 01/08/23 11:44 Infused .Q1H ARJUN Infusion Ceftriaxone Sodium 1 gm/ 50 mls @ 100 mls/hr 01/08/23 11:00 01/08/23 12:04 Sodium Chloride IV 01/08/23 11:29 Infused ONCE ONE Infusion Sodium Chloride 500 mls @ 500 mls/hr 01/08/23 11:45 01/08/23 13:17 Ns IV 01/08/23 12:44 Infused .Q1H ARJUN Infusion Calcium Gluconate 1 gm in 50 mls @ 50 mls/hr 01/08/23 12:37 01/08/23 14:08 Calcium Gluconate IV 01/08/23 13:36 Infused ONCE ONE Infusion Insulin Human Regular 10 unit 01/08/23 12:37 01/08/23 13:08 Insulin Regular, Human 100 Unit/Ml 3 Ml Vial IVPUSH 01/08/23 12:38 10 unit ONCE ONE Administration Propofol 100 mg 01/08/23 10:23 01/08/23 10:26 Propofol 200 Mg/20 Ml Vial IVPUSH 01/08/23 10:24 100 mg ONCE ONE Administration Sodium Bicarbonate 50 meq 01/08/23 12:37 01/08/23 13:12 Sodium Bicarbonate 8.4% 50 Meq/50 Ml Syringe IVPUSH 01/08/23 12:38 50 meq ONCE ONE Administration Succinylcholine Chloride 100 mg 01/08/23 11:00 01/08/23 11:09 Succinylcholine Chloride 200 Mg/10 Ml Vial IVPUSH 01/08/23 11:01 100 mg ONCE ONE Administration Procedures Central Line Placement Left IJ: Time Out Performed: Yes Patient Placed on Monitor/Pulse Ox: Yes MD Prep: mask, gown and gloves Central Line Prep: Chlorhexidine scrub Local Anesthetic: lidocaine 1% Amount of anesthesia used (mL): 4 Ultrasound Used for Placement: Yes Central Line Lumen Inserted: triple Post Procedure: sutured in place, good blood return, all ports aspirated, flushed, capped and sterile dressing applied Post Procedure X-Ray: tip of catheter in good position and no pneumothorax seen Patient Tolerated Procedure: well Complications: none Intubation Time out performed: No sedative: Etomidate Mg Given: 20 paralytic: Succinylcholine Mg Given: 100 Laryngoscope: other (glydescope) ET Tube Size: 7.5 ET Tube Uncuffed: No Tube Secured Depth (cm): 25 Tube Secured Location: lips Tube Placement Confirmation: visualized tube passing through cords, equal breath sounds bilaterally, no breath sounds over epigastrium and confirmation by capnometry Patient Tolerated Procedure: well Intubation Complications: none Medical Decision Making Medical Decision Making [facility] Narrative: 62-year-old male with multiple chronic medical problems presents with acute respiratory failure. Upon arrival, patient was intubated. Etiology of his respiratory failure is not entirely understood. There is no evidence of trauma however, we will obtain a CT scan of the head to rule out acute intracranial bleeding or other acute intracranial disease process. Will obtain a chest x-ray to rule out CHF, pulmonary edema given end-stage renal patient. It is possible this could be CO2 retention. Other possible diagnoses could include PE, pneumonia, CHF, pulmonary edema, altered mental status, CO2 retention. Workup will center on ruling out these differential diagnoses including CT scan of the head, laboratory analysis. Will also order CT scan angiogram of the chest. He will likely need to dialyze either today or tomorrow. Will contact ICU to alert them of patient's presence. Differential Diagnosis Differential Diagnoses: The differential diagnosis associated with the presentation includes (See above) Admission/Observation Consideration of admission/observation: Escalation of care including admission/observation considered (Will need ICU admission) Consult Healthcare Provider Management of the patient was discussed with: Soft Top Installer (Customer Support Specialist) Lab Data MDM Lab Attestation statement: I reviewed the patient's lab results. 01/08/23 10:39 Labs: Lab Results 01/08/23 01/08/23 01/08/23 Range/Units 09:58 10:32 10:53 WBC (4.8-10.8) X10*3/uL RBC (4.60-5.80) X10*6/uL Hgb (14.0-18.0) g/dl Hct (42.0-52.0) % MCV (80.0-98.0) fL MCH (27.0-33.0) pg MCHC (31.0-36.0) g/dl RDW (11.0-16.0) % Plt Count (160-400) X10*3/uL MPV (9.4-12.4) fL Immature Gran % (Auto) (0.0-0.4) % Neut % (Auto) (45-73) % Lymph % (Auto) (20-40) % [place] % (Auto) (2-11) % Eos % (Auto) (0-4) % Baso % (Auto) (0-2) % Lymph # (Auto) (1.2-4.9) X10*3/uL [place] # (Auto) (0.1-1.2) X10*3/uL Eos # (Auto) (0.0-0.4) X10*3/uL Baso # (Auto) (0.0-0.2) X10*3/uL Abs Immat Gran (auto) (0.00-0.03) X10*3/uL Absolute Neuts (auto) (2.0-8.3) x10*3/uL Absolute Nucleated RBC (0.0-0.012) X10*3/uL Nucleated RBC % (auto) (0.0-0.2) /100WBC Smear Tech's Comments PT (10.0-13.1) SEC INR (0.9-1.1) APTT (26.0-36.4) SEC O2 Saturation 92.0 % ABG pH at Pt Temp 7.27 L (7.35-7.45) ABG pCO2 at Pt Temp 71 H* (32-45) mmHg ABG pO2 at Pt Temp 73 L (83-108) mmHg ABG HCO3 32 H (22-26) mmol/L ABG Base Excess (Actual) TNP Sodium (135-145) mmol/L Potassium (3.3-5.1) mmol/L Chloride (96-108) mmol/L Carbon Dioxide (22-29) mmol/L Anion Gap (12-20) BUN (9-16) mg/dL Creatinine (0.5-1.4) mg/dL Estim Creat Clear Calc Estimated GFR POC Glucose 151 H (60-115) mg/dL Random Glucose (60-115) mg/dL Lactic Acid (0.5-2.0) mmol/L Calcium (8.4-10.2) mg/dL Total Bilirubin (0.0-1.0) mg/dL AST (5-37) U/L ALT (0-40) U/L Alkaline Phosphatase (39-117) U/L Troponin I High Sens (<3.5-35.0) ng/L B-Natriuretic Peptide (<100) pg/mL Total Protein (6.5-8.0) g/dL Albumin (3.5-5.0) g/dL TSH (0.32-4.0) uIU/mL Urine Color Yellow Urine Appearance Clear Urine pH 7.5 (5.0-9.0) Ur Specific [place] 1.010 (1.005-1.025) Urine Protein 300 (3+) H (Neg-Trace) mg/dL Urine Glucose (UA) Negative (Negative) mg/dL Urine Ketones Negative (Negative) mg/dL Urine Blood Small (1+) H (Negative) Urine Nitrite Negative (Negative) Ur Leukocyte Esterase Moderate (2+) H (Negative) Urine RBC 6-10 H (0-2) /HPF Urine WBC 21-50 H (0-5) /HPF Ur Squamous Epith Cells 0-2 (0-2) /HPF Urine Bacteria None Seen (None Seen) Hyaline Casts 0-2 (0-2) /LPF COVID-19 (VIANCA) (Negative) COVID-19 Clin Com Influenza Type A ([place]) (Negative) Influenza Type B ([place]) (Negative) Influenza A & B Note Blood Type Antibody Screen 01/08/23 01/08/23 01/08/23 Range/Units 11:22 11:22 11:22 WBC (4.8-10.8) X10*3/uL RBC (4.60-5.80) X10*6/uL Hgb (14.0-18.0) g/dl Hct (42.0-52.0) % MCV (80.0-98.0) fL MCH (27.0-33.0) pg MCHC (31.0-36.0) g/dl RDW (11.0-16.0) % Plt Count (160-400) X10*3/uL MPV (9.4-12.4) fL Immature Gran % (Auto) (0.0-0.4) % Neut % (Auto) (45-73) % Lymph % (Auto) (20-40) % [place] % (Auto) (2-11) % Eos % (Auto) (0-4) % Baso % (Auto) (0-2) % Lymph # (Auto) (1.2-4.9) X10*3/uL [place] # (Auto) (0.1-1.2) X10*3/uL Eos # (Auto) (0.0-0.4) X10*3/uL Baso # (Auto) (0.0-0.2) X10*3/uL Abs Immat Gran (auto) (0.00-0.03) X10*3/uL Absolute Neuts (auto) (2.0-8.3) x10*3/uL Absolute Nucleated RBC (0.0-0.012) X10*3/uL Nucleated RBC % (auto) (0.0-0.2) /100WBC Smear Tech's Comments PT 12.1 (10.0-13.1) SEC INR 1.1 (0.9-1.1) APTT 31.0 (26.0-36.4) SEC O2 Saturation % ABG pH at Pt Temp (7.35-7.45) ABG pCO2 at Pt Temp (32-45) mmHg ABG pO2 at Pt Temp (83-108) mmHg ABG HCO3 (22-26) mmol/L ABG Base Excess (Actual) Sodium (135-145) mmol/L Potassium (3.3-5.1) mmol/L Chloride (96-108) mmol/L Carbon Dioxide (22-29) mmol/L Anion Gap (12-20) BUN (9-16) mg/dL Creatinine (0.5-1.4) mg/dL Estim Creat Clear Calc Estimated GFR POC Glucose (60-115) mg/dL Random Glucose (60-115) mg/dL Lactic Acid (0.5-2.0) mmol/L Calcium (8.4-10.2) mg/dL Total Bilirubin (0.0-1.0) mg/dL AST (5-37) U/L ALT (0-40) U/L Alkaline Phosphatase (39-117) U/L Troponin I High Sens 177.4 H* (<3.5-35.0) ng/L B-Natriuretic Peptide (<100) pg/mL Total Protein (6.5-8.0) g/dL Albumin (3.5-5.0) g/dL TSH (0.32-4.0) uIU/mL Urine Color Urine Appearance Urine pH (5.0-9.0) Ur Specific [place] (1.005-1.025) Urine Protein (Neg-Trace) mg/dL Urine Glucose (UA) (Negative) mg/dL Urine Ketones (Negative) mg/dL Urine Blood (Negative) Urine Nitrite (Negative) Ur Leukocyte Esterase (Negative) Urine RBC (0-2) /HPF Urine WBC (0-5) /HPF Ur Squamous Epith Cells (0-2) /HPF Urine Bacteria (None Seen) Hyaline Casts (0-2) /LPF COVID-19 ([facility]AN[facility]) (Negative) COVID-19 Clin Com Influenza Type A ([place]) (Negative) Influenza Type B ([place]) (Negative) Influenza A & B Note Blood Type O Positive Antibody Screen NEGATIVE 01/08/23 01/08/23 01/08/23 Range/Units 11:23 11:23 11:23 WBC 10.1 (4.8-10.8) X10*3/uL RBC 2.78 L D (4.60-5.80) X10*6/uL Hgb 8.6 L D (14.0-18.0) g/dl Hct 29.6 L D (42.0-52.0) % MCV 106.5 H (80.0-98.0) fL MCH 30.9 (27.0-33.0) pg MCHC 29.1 L (31.0-36.0) g/dl RDW 15.9 (11.0-16.0) % Plt Count 203 (160-400) X10*3/uL MPV 10.5 (9.4-12.4) fL Immature Gran % (Auto) 0.7 H (0.0-0.4) % Neut % (Auto) 93.1 H (45-73) % Lymph % (Auto) 2.5 L (20-40) % [place] % (Auto) 3.6 (2-11) % Eos % (Auto) 0.0 (0-4) % Baso % (Auto) 0.1 (0-2) % Lymph # (Auto) 0.3 L (1.2-4.9) X10*3/uL [place] # (Auto) 0.4 (0.1-1.2) X10*3/uL Eos # (Auto) 0.0 (0.0-0.4) X10*3/uL Baso # (Auto) 0.0 (0.0-0.2) X10*3/uL Abs Immat Gran (auto) 0.07 H (0.00-0.03) X10*3/uL Absolute Neuts (auto) 9.4 H (2.0-8.3) x10*3/uL Absolute Nucleated RBC 0.000 (0.0-0.012) X10*3/uL Nucleated RBC % (auto) 0.0 (0.0-0.2) /100WBC Smear Tech's Comments VERIFIED PT (10.0-13.1) SEC INR (0.9-1.1) APTT (26.0-36.4) SEC O2 Saturation % ABG pH at Pt Temp (7.35-7.45) ABG pCO2 at Pt Temp (32-45) mmHg ABG pO2 at Pt Temp (83-108) mmHg ABG HCO3 (22-26) mmol/L ABG Base Excess (Actual) Sodium 139 (135-145) mmol/L Potassium 7.6 H* D (3.3-5.1) mmol/L Chloride 99 (96-108) mmol/L Carbon Dioxide 26 (22-29) mmol/L Anion Gap 22 H (12-20) BUN 80 H (9-16) mg/dL Creatinine 9.61 H* (0.5-1.4) mg/dL Estim Creat Clear Calc 8.0 Estimated GFR 6 POC Glucose (60-115) mg/dL Random Glucose 150 H (60-115) mg/dL Lactic Acid 1.6 (0.5-2.0) mmol/L Calcium 8.7 D (8.4-10.2) mg/dL Total Bilirubin 0.7 (0.0-1.0) mg/dL AST 21 (5-37) U/L ALT 13 (0-40) U/L Alkaline Phosphatase 136 H (39-117) U/L Troponin I High Sens (<3.5-35.0) ng/L B-Natriuretic Peptide (<100) pg/mL Total Protein 5.9 L (6.5-8.0) g/dL Albumin 3.5 (3.5-5.0) g/dL TSH 0.73 (0.32-4.0) uIU/mL Urine Color Urine Appearance Urine pH (5.0-9.0) Ur Specific [place] (1.005-1.025) Urine Protein (Neg-Trace) mg/dL Urine Glucose (UA) (Negative) mg/dL Urine Ketones (Negative) mg/dL Urine Blood (Negative) Urine Nitrite (Negative) Ur Leukocyte Esterase (Negative) Urine RBC (0-2) /HPF Urine WBC (0-5) /HPF Ur Squamous Epith Cells (0-2) /HPF Urine Bacteria (None Seen) Hyaline Casts (0-2) /LPF COVID-19 ([facility]AN[facility]) (Negative) COVID-19 Clin Com Influenza Type A ([place]) (Negative) Influenza Type B ([place]) (Negative) Influenza A & B Note Blood Type Antibody Screen 01/08/23 01/08/23 01/08/23 Range/Units 11:23 11:23 11:23 WBC (4.8-10.8) X10*3/uL RBC (4.60-5.80) X10*6/uL Hgb (14.0-18.0) g/dl Hct (42.0-52.0) % MCV (80.0-98.0) fL MCH (27.0-33.0) pg MCHC (31.0-36.0) g/dl RDW (11.0-16.0) % Plt Count (160-400) X10*3/uL MPV (9.4-12.4) fL Immature Gran % (Auto) (0.0-0.4) % Neut % (Auto) (45-73) % Lymph % (Auto) (20-40) % [place] % (Auto) (2-11) % Eos % (Auto) (0-4) % Baso % (Auto) (0-2) % Lymph # (Auto) (1.2-4.9) X10*3/uL [place] # (Auto) (0.1-1.2) X10*3/uL Eos # (Auto) (0.0-0.4) X10*3/uL Baso # (Auto) (0.0-0.2) X10*3/uL Abs Immat Gran (auto) (0.00-0.03) X10*3/uL Absolute Neuts (auto) (2.0-8.3) x10*3/uL Absolute Nucleated RBC (0.0-0.012) X10*3/uL Nucleated RBC % (auto) (0.0-0.2) /100WBC Smear Tech's Comments PT (10.0-13.1) SEC INR (0.9-1.1) APTT (26.0-36.4) SEC O2 Saturation % ABG pH at Pt Temp (7.35-7.45) ABG pCO2 at Pt Temp (32-45) mmHg ABG pO2 at Pt Temp (83-108) mmHg ABG HCO3 (22-26) mmol/L ABG Base Excess (Actual) Sodium (135-145) mmol/L Potassium (3.3-5.1) mmol/L Chloride (96-108) mmol/L Carbon Dioxide (22-29) mmol/L Anion Gap (12-20) BUN (9-16) mg/dL Creatinine (0.5-1.4) mg/dL Estim Creat Clear Calc Estimated GFR POC Glucose (60-115) mg/dL Random Glucose (60-115) mg/dL Lactic Acid (0.5-2.0) mmol/L Calcium (8.4-10.2) mg/dL Total Bilirubin (0.0-1.0) mg/dL AST (5-37) U/L ALT (0-40) U/L Alkaline Phosphatase (39-117) U/L Troponin I High Sens (<3.5-35.0) ng/L B-Natriuretic Peptide 2583 H (<100) pg/mL Total Protein (6.5-8.0) g/dL Albumin (3.5-5.0) g/dL TSH (0.32-4.0) uIU/mL Urine Color Urine Appearance Urine pH (5.0-9.0) Ur Specific [place] (1.005-1.025) Urine Protein (Neg-Trace) mg/dL Urine Glucose (UA) (Negative) mg/dL Urine Ketones (Negative) mg/dL Urine Blood (Negative) Urine Nitrite (Negative) Ur Leukocyte Esterase (Negative) Urine RBC (0-2) /HPF Urine WBC (0-5) /HPF Ur Squamous Epith Cells (0-2) /HPF Urine Bacteria (None Seen) Hyaline Casts (0-2) /LPF COVID-19 (VIANCA) Negative (Negative) COVID-19 Clin Com See Note Influenza Type A ([place]) Negative (Negative) Influenza Type B ([place]) Negative (Negative) Influenza A & B Note See Note Blood Type Antibody Screen 01/08/23 Range/Units 12:39 WBC (4.8-10.8) X10*3/uL RBC (4.60-5.80) X10*6/uL Hgb (14.0-18.0) g/dl Hct (42.0-52.0) % MCV (80.0-98.0) fL MCH (27.0-33.0) pg MCHC (31.0-36.0) g/dl RDW (11.0-16.0) % Plt Count (160-400) X10*3/uL MPV (9.4-12.4) fL Immature Gran % (Auto) (0.0-0.4) % Neut % (Auto) (45-73) % Lymph % (Auto) (20-40) % [place] % (Auto) (2-11) % Eos % (Auto) (0-4) % Baso % (Auto) (0-2) % Lymph # (Auto) (1.2-4.9) X10*3/uL [place] # (Auto) (0.1-1.2) X10*3/uL Eos # (Auto) (0.0-0.4) X10*3/uL Baso # (Auto) (0.0-0.2) X10*3/uL Abs Immat Gran (auto) (0.00-0.03) X10*3/uL Absolute Neuts (auto) (2.0-8.3) x10*3/uL Absolute Nucleated RBC (0.0-0.012) X10*3/uL Nucleated RBC % (auto) (0.0-0.2) /100WBC Smear Tech's Comments PT (10.0-13.1) SEC INR (0.9-1.1) APTT (26.0-36.4) SEC O2 Saturation % ABG pH at Pt Temp (7.35-7.45) ABG pCO2 at Pt Temp (32-45) mmHg ABG pO2 at Pt Temp (83-108) mmHg ABG HCO3 (22-26) mmol/L ABG Base Excess (Actual) Sodium (135-145) mmol/L Potassium (3.3-5.1) mmol/L Chloride (96-108) mmol/L Carbon Dioxide (22-29) mmol/L Anion Gap (12-20) BUN (9-16) mg/dL Creatinine (0.5-1.4) mg/dL Estim Creat Clear Calc Estimated GFR POC Glucose 122 H (60-115) mg/dL Random Glucose (60-115) mg/dL Lactic Acid (0.5-2.0) mmol/L Calcium (8.4-10.2) mg/dL Total Bilirubin (0.0-1.0) mg/dL AST (5-37) U/L ALT (0-40) U/L Alkaline Phosphatase (39-117) U/L Troponin I High Sens (<3.5-35.0) ng/L B-Natriuretic Peptide (<100) pg/mL Total Protein (6.5-8.0) g/dL Albumin (3.5-5.0) g/dL TSH (0.32-4.0) uIU/mL Urine Color Urine Appearance Urine pH (5.0-9.0) Ur Specific [place] (1.005-1.025) Urine Protein (Neg-Trace) mg/dL Urine Glucose (UA) (Negative) mg/dL Urine Ketones (Negative) mg/dL Urine Blood (Negative) Urine Nitrite (Negative) Ur Leukocyte Esterase (Negative) Urine RBC (0-2) /HPF Urine WBC (0-5) /HPF Ur Squamous Epith Cells (0-2) /HPF Urine Bacteria (None Seen) Hyaline Casts (0-2) /LPF COVID-19 ([facility]) (Negative) COVID-19 Clin Com Influenza Type A ([place]) (Negative) Influenza Type B ([place]) (Negative) Influenza A & B Note Blood Type Antibody Screen ABG Data Attestation ABG: I personally reviewed and interpreted this ABG as follows: Independent Interpretation I performed an independent interpretation of an: EKG (Normal sinus rhythm heart rate 89, normal intervals, no acute ST elevations depressions, prominent T-waves noted over the anterior precordial leads suggestive of hyperkalemia), Plain X- Ray (ET tube approximately 5 cm above the nellie, bibasilar fluffy infiltrates, no large pleural effusions) and CT Scan Radiology Impression Discussion of test interpretation with radiology: I have reviewed the radiologist's reading. Independent Historian Clinical information obtained from an independent historian. History obtained from or confirmed by: EMS Prescription Management I considered prescription management with: Antibiotic Chronic Conditions Patient?s care impacted by: Hypertension Critical Care Time Critical Care Time Critical Care Time: Yes Total Critical Care Time: 100 Attestation: 100 minutes of critical care time was spent with direct patient care, interpretation of medical data, consultation with medical records administrator, bedside re-evaluation, medical management, documentation. All this outside of procedure time. Discharge Plan Discharge Clinical Impression: Respiratory failure, End stage renal disease, Acute lower UTI, Hypotension, Bradycardia, Acute hyperkalemia, Elevated troponin, Anemia, macrocytic Patient Disposition: Admitted As Inpatient
[2023-01-08] MEDS: propofoL 1,000 MG/100 ML VIAL 24.48 MG IVCONT ×4 (10:22→22:18)
[2023-01-08] MEDS: propofoL 200 MG/20 ML VIAL 100 MG IVPUSH (10:26)
--- NOTE | 2023-01-08 10:45 | PHA.MEDREC ---
Pharmacy Consult ? Medication Reconciliation Pharmacy has completed the medication reconciliation.
[2023-01-08] MEDS: fentaNYL citrate/PF 100 MCG/2 ML VIAL IVPUSH (10:46)
[2023-01-08 10:47] LABS: Appearance Urine Clear; Color Urine Yellow; Glucose Urine UA Negative (Negative); Leukocyte Esterase Urine Moderate (2+) (Negative); Nitrite Urine Negative (Negative); PH 7.5 (5.0-9.0); UMIC TRIGGER UACC YES; Urine Blood Small (1+) (Negative); Urine Ketones Negative (Negative); Urine Protein 300 (3+) mg/dL (Neg-Trace)
[2023-01-08] MEDS: 0.9 % Sodium Chloride 500 ML IV ×2 (10:48→11:50)
[2023-01-08 10:50] LABS: Bacteria Urine None Seen (None Seen); Hyaline Casts Urine 0-2 /LPF (0-2); Squamous Epithelial Cell Urine 0-2 /HPF (0-2); UACC Culture Trigger YES; WBC Urine 21-50 /HPF (0-5)
--- NOTE | 2023-01-08 10:50 | PC.NURSE ---
ppt BIBA from home where his LKW was yesterday at 10AM. pt with [facility] to visit today, pt did not answer the door. police entered home, pt found unresponsive on the couch. SaO2 in the 50s. pt using baseline 2L NC at the time uppon arrive to ED4 pt POC 157, BP 163/89, 66% on room air after being bagged by EMS. hx of bladder CA untreated, HTN, dialysis. Etomidate given at 10:04, Succinocholine given at 10:05. dr bynum at bedside. pt intubated at 10;07 with a 7.5, + color chagne, 25 at the lip. pt vent settings AC 20, 450, 5 Peep at 100%/ pt started on 50mcg/kg as he was restless, waking, opening his eyes and attempting to sit up. pt bolused with 100mg propfol by MD Bynum. pt continues to be arousable to pain an touch. multiple attemtps to complete OG/NG placement, pt still with gag reflex, MD Bynum aware. X ray at bedside at this time
[2023-01-08 11:01] LABS: ABG HCO3 32 mmol/L (22-26); ABG pCO2 71 mmHg (32-45); ABG pH 7.27 (7.35-7.45); ABG pO2 73 mmHg (83-108)
[2023-01-08] MEDS: Etomidate 20 MG/10 ML VIAL IVPUSH (11:08)
[2023-01-08] MEDS: Succinylcholine Chloride 200 MG/10 ML VIAL 100 MG IVPUSH (11:09)
[2023-01-08 11:12] LABS: Glucose, Whole Blood 151 mg/dL (60-115)
[2023-01-08] MEDS: fentaNYL citrate/NS 1,000 MCG/100 ML PLAST..BAG 2.5 MCG IVCONT (11:15)
[2023-01-08] MEDS: cefTRIAXone sodium 1 GM in 0.9 % Sodium Chloride 50 ML IV (11:32)
--- NOTE | 2023-01-08 11:35 | PC.NURSE ---
pt with JENNY 20G IV in R arm, left arm unable to use d/t dialysis fistula. 20G in RAC and R wrist.
[2023-01-08 11:37] LABS: Basophils Percent Auto 0.1 % (0-2); Hematocrit 29.6 % (42.0-52.0); Hemoglobin 8.6 g/dl (14.0-18.0); Imm Gran Abs Auto 0.07 X10*3/uL (0.00-0.03); Imm Gran Pct Auto 0.7 % (0.0-0.4); Lymphocytes Absolute Auto 0.3 X10*3/uL (1.2-4.9); Lymphocytes Percent Auto 2.5 % (20-40); MANUAL DIFF FLAG SCAN; Mean Corpuscular HGB Conc 29.1 g/dl (31.0-36.0); Mean Corpuscular Hemoglobin 30.9 pg (27.0-33.0); Mean Corpuscular Volume 106.5 fL (80.0-98.0); Mean Platelet Volume 10.5 fL (9.4-12.4); Monocytes Absolute Auto 0.4 X10*3/uL (0.1-1.2); Monocytes Percent Auto 3.6 % (2-11); Neutrophils Absolute Auto 9.4 x10*3/uL (2.0-8.3); Neutrophils Percent Auto 93.1 % (45-73); Platelet Count 203 X10*3/uL (160-400); Red Blood Count 2.78 X10*6/uL (4.60-5.80); Red Cell Distribution Width 15.9 % (11.0-16.0); SCAN SMEAR FLAG 1; White Blood Count 10.1 X10*3/uL (4.8-10.8)
[2023-01-08 11:40] LABS: Lactic Acid 1.6 mmol/L (0.5-2.0)
[2023-01-08 11:45] LABS: INTERNATIONAL NORM RATIO 1.1 (0.9-1.1); Prothrombin Time 12.1 SEC (10.0-13.1)
--- NOTE | 2023-01-08 11:54 | PC.NURSE ---
pt MAP <60 - need to stop fentanyl gtt needed for increased sedation. MD Bynum made aware. plan for central line placement to administer levophed
[2023-01-08 11:56] LABS: COVID-19 Test Negative (Negative); IDNOW Serial# 08D9AD1C; IDNOW Serial# BCCEAD1C; Influenza A Negative (Negative); Influenza B2 Negative (Negative)
[2023-01-08 12:01] LABS: Troponin-I High Sensitivity 177.4 ng/L (<3.5-35.0)
[2023-01-08 12:02] LABS: Albumin Level 3.5 g/dL (3.5-5.0); Anion Gap 22 (12-20); Bilirubin Total 0.7 mg/dL (0.0-1.0); Blood Urea Nitrogen 80 mg/dL (9-16); Carbon Dioxide 26 mmol/L (22-29); Chloride 99 mmol/L (96-108); Glucose Random 150 mg/dL (60-115); Potassium 7.6 mmol/L (3.3-5.1); Sodium 139 mmol/L (135-145)
[2023-01-08 12:03] LABS: Alanine Aminotransferase 13 U/L (0-40); Alkaline Phosphatase 136 U/L (39-117); Aspartate Amino Transferase 21 U/L (5-37); Calcium 8.7 mg/dL (8.4-10.2); Estimated Glomerular Filt Rate 6; Total Protein 5.9 g/dL (6.5-8.0)
[2023-01-08 12:08] LABS: SLIDE REVIEW VERIFIED
[2023-01-08 12:13] LABS: TSH reflex Free T4 0.73 uIU/mL (0.32-4.0)
[2023-01-08 12:21] LABS: B Type Natriuretic Peptide 2583 pg/mL (<100)
[2023-01-08 12:43] LABS: Glucose, Whole Blood 122 mg/dL (60-115)
[2023-01-08] MEDS: Albuterol Sulfate (0.083%) 2.5 MG/3 ML VIAL.NEB 10 MG INHALE (12:51)
--- NOTE | 2023-01-08 13:04 | PC.NURSE ---
xray at bedside, per MD at bedside dr maksim pringle to use central line
[2023-01-08] MEDS: Insulin Regular, Human 100 UNIT/ML 3 ML VIAL 10 UNIT IVPUSH (13:08)
[2023-01-08] MEDS: Dextrose 50 % 25 GM/50 ML SYRINGE IVPUSH (13:08)
[2023-01-08] MEDS: Sodium Bicarbonate 8.4% 50 MEQ/50 ML SYRINGE IVPUSH (13:12)
[2023-01-08] MEDS: Calcium Gluconate/NaCl,Iso-Osm 1 GM/50 ML PLAST..BAG IV (13:15)
[2023-01-08] MEDS: Norepinephrine Bitartrate/D5W 8 MG/250 ML PLAST..BAG 7.65 MG IV (13:22)
--- NOTE | 2023-01-08 13:35 | P.HPCC_ITS ---
History of Present Illness Date of Service: 01/08/23 Chief Complaint: Alteration of mental status, acute respiratory failure 62-year-old gentleman with underlying schizophrenia, end-stage on hemodialysis, COPD on supplemental oxygen, poor compliance with treatments found unresponsive and in respiratory distress by visiting nurse and transferred to [facility] by EMS. On emergency room evaluation patient in significant respiratory distress requiring intubation. Laboratory studies significant for combined re spiratory and metabolic acidosis with acute on chronic renal failure, and hyperkalemia. Patient started on broad-spectrum antibiotics and admitted to intensive care unit for urgent hemodialysis and further care. Review of Systems Review of Systems: Yes unobtainable due to endotracheal tube, Unobtainable due to mental condition and Unobtainable due to mental status PMFSH Past Medical History Medical History (Updated 01/08/23 @ 13:51 by Juan Manuel oHlloway MD) Chronic paranoid schizophrenia COVID-19 End stage renal disease ESRD needing dialysis HTN (hypertension) Paranoid ideation Social History Social History Household Members: None Household Members Other:: self Housing: Apartment Do you presently have visiting nurse or other home services: Yes Alcohol intake: unknown Patient Tobacco Use Status: Former Tobacco user Tobacco use type: Cigarette e-Cigarette/Vaping Use: Never Used Second Hand Smoke Exposure: No Advance Directives Date on File: 08/31/20 service: No Current occupational status: disabled Meds Allergies Allergy/AdvReac Type Severity Reaction Status Date / Time thioridazine [From MELLARIL] Allergy Unknown TONGUE Verified 05/04/21 10:08 SWELLING mellaril Allergy Severe anaphylaxis Uncoded 05/04/21 10:08 Active Medications: Current Medications Fentanyl (Fentanyl Citrate/Pf 100 Mcg/2 Ml Vial) 100 mcg IVPUSH Q30M PRN; Protocol PRN Reason: Sedation Last Admin: 01/08/23 10:46 Dose: 100 mcg Heparin Sodium (Porcine) (Heparin Sodium,Porcine 5,000 Unit/Ml Vial) 5,000 unit SUBCUT Q8H ARJUN Propofol (Diprivan) 1,000 mg in 100 mls @ 0 mls/hr IVCONT .Q0M ARJUN; Protocol Last Titration: 01/08/23 13:12 Dose: 50 mcg/kg/min, 24.48 mls/hr Fentanyl (Sublimaze/Ns) 1,000 mcg in 100 mls @ 0 mls/hr IVCONT .Q0M ARJUN; Protocol Last Titration: 01/08/23 12:41 Dose: 50 mcg/hr, 5 mls/hr Norepinephrine Bitartrate (Levophed) 8 mg in 250 mls @ 0 mls/hr IV .Q0M ARJUN; Protocol Last Admin: 01/08/23 13:22 Dose: 0.05 mcg/kg/min, 7.65 mls/hr Calcium Gluconate (Calcium Gluconate) 1 gm in 50 mls @ 50 mls/hr IV ONCE ONE Stop: 01/08/23 13:36 Last Admin: 01/08/23 13:15 Dose: 50 mls/hr Naloxone HCl (Naloxone Hcl 0.4 Mg/Ml Vial) 0.2 mg IVPUSH Q2M PRN PRN Reason: Excessive sedation or RR < 8 Pharmacy Consult (Consult Rx Perform Med Rec) 1 each MISCELLANE ONCE PRN PRN Reason: Consult order Home Medications Medication Instructions Recorded Confirmed Last Taken Type albuterol sulfate 90 mcg/actuation 2 puff inhalation Q4-6H PRN 08/31/20 01/08/23 Unknown History aerosol inhaler (ProAir HFA) Shortness Of Breath aspirin 81 mg tablet,delayed 81 mg PO DAILY 08/31/20 01/08/23 Unknown History release famotidine 20 mg tablet 20 mg PO BEDTIME 08/31/20 01/08/23 Unknown History fluticasone propionate 110 1 puff inhalation BID 08/31/20 01/08/23 Unknown History mcg/actuation HFA aerosol inhaler (Flovent HFA) furosemide 80 mg tablet 80 mg PO DAILY 08/31/20 01/08/23 Unknown History loperamide 2 mg capsule 2 mg PO TID PRN Diarrhea 08/31/20 01/08/23 Unknown Histo ry metoprolol tartrate 50 mg tablet 25 mg PO BID 08/31/20 01/08/23 Unknown History paliperidone 3 mg tablet,extended 3 mg PO DAILY 08/31/20 01/08/23 Unknown History release 24 hr perphenazine 4 mg tablet 4 mg PO DAILY 08/31/20 01/08/23 Unknown History vitamin B complex and vitamin C 1 cap PO DAILY 08/31/20 01/08/23 Unknown History no.20-folic acid 1 mg capsule (Crescent Caps) cholecalciferol (vitamin D3) 125 125 mcg PO DAILY 01/13/21 01/08/23 Unknown History mcg (5,000 unit) tablet nicotine 14 mg/24 hr daily 1 patch transdermal DAILY PRN 01/13/21 01/08/23 Unknown History transdermal patch Nicotine Cravings amlodipine 5 mg tablet 5 mg PO DAILY 07/14/22 01/08/23 Unknown History midodrine 5 mg tablet 5 mg PO MOWEFR@0900,1800 07/14/22 01/08/23 Unknown History multivitamin 1 tab PO DAILY 07/14/22 01/08/23 Unknown History omega-3 fatty acids 1,000 mg 1 cap PO BID 07/14/22 01/08/23 Unknown History capsule Physical Exam Vital Signs: Vital Signs: Last Vital Signs Temp 97.5 F 01/08/23 13:19 Pulse 74 01/08/23 13:22 Resp 18 01/08/23 13:19 BP 104/41 L 01/08/23 13:22 Pulse Ox 90 L 01/08/23 13:19 O2 Del Method Mechanical Ventil ation 01/08/23 13:19 O2 Flow Rate 100 01/08/23 13:19 FiO2 50 01/08/23 10:18 BMI result Body Mass Index 28.2 Const: General: no acute distress and other (Sedated on the vent) Eyes: Sclerae: sclerae normal EOM: EOMs intact bilaterally Neck: Neck: Yes no lymphadenopathy, Yes trachea midline and Yes supple Resp: Effort & Inspection: normal respiratory effort and no respiratory distress Auscultation: clear to auscultation bilaterally Cardio: Rate: regular rate Rhythm: regular rhythm Heart sounds: no gallops, no murmurs and no rubs GI: Palpation (GI): Soft to palpation and Other GI palpation findings present ( Nontender) Auscultation: normal bowel sounds Extrem: General: No clubbing, No cyanosis and Yes edema (1+ bilateral) Results Labs 01/08/23 11:23 01/08/23 11:23 Labs: Laboratory Results - last 24 hr 01/08/23 01/08/23 01/08/23 09:58 10:32 10:53 MCV MCH MCHC RDW Plt Count MPV Immature Gran % (Auto) Neut % (Auto) Lymph % (Auto) Darke % (Auto) Eos % (Auto) Baso % (Auto) Lymph # (Auto) Darke # (Auto) Eos # (Auto) Baso # (Auto) Abs Immat Gran (auto) Absolute Neuts (auto) Absolute Nucleated RBC Nucleated RBC % (auto) Smear Tech's Comments PT INR APTT O2 Saturation 92.0 ABG pH at Pt Temp 7.27 L ABG pCO2 at Pt Temp 71 H* ABG pO2 at Pt Temp 73 L ABG HCO3 32 H ABG Base Excess (Actual) TNP Anion Gap Estim Creat Clear Calc Estimated GFR POC Glucose 151 H Random Glucose Lactic Acid Calcium Total Bilirubin AST ALT Alkaline Phosphatase Troponin I High Sens B-Natriuretic Peptide Total Protein Albumin TSH Urine Color Yellow Urine Appearance Clear Urine pH 7.5 Ur Specific [place] 1.010 Urine Protein 300 (3+) H Urine Glucose (UA) Negative Urine Ketones Negative Urine Blood Small (1+) H Urine Nitrite Negative Ur Leukocyte Esterase Moderate (2+) H Urine RBC 6-10 H Urine WBC 21-50 H Ur Squamous Epith Cells 0-2 Urine Bacteria None Seen Hyaline Casts 0-2 COVID-19 (VIANCA) COVID-19 Clin Com Influenza Type A (DELTA) Influenza Type B (DELTA) Influenza A & B Note Blood Type Antibody Screen 01/08/23 01/08/23 01/08/23 11:22 11:22 11:22 MCV MCH MCHC RDW Plt Count MPV Immature Gran % (Auto) Neut % (Auto) Lymph % (Auto) Darke % (Auto) Eos % (Auto) Baso % (Auto) Lymph # (Auto) Darke # (Auto) Eos # (Auto) Baso # (Auto) Abs Immat Gran (auto) Absolute Neuts (auto) Absolute Nucleated RBC Nucleated RBC % (auto) Smear Tech's Comments PT 12.1 INR 1.1 APTT 31.0 O2 Saturation ABG pH at Pt Temp ABG pCO2 at Pt Temp ABG pO2 at Pt Temp ABG HCO3 ABG Base Excess (Actual) Anion Gap Estim Creat Clear Calc Estimated GFR POC Glucose Random Glucose Lactic Acid Calcium Total Bilirubin AST ALT Alkaline Phosphatase Troponin I High Sens 177.4 H* B-Natriuretic Peptide Total Protein Albumin TSH Urine Color Urine Appearance Urine pH Ur Specific [place] Urine Protein Urine Glucose (UA) Urine Ketones Urine Blood Urine Nitrite Ur Leukocyte Esterase Urine RBC Urine WBC Ur Squamous Epith Cells Urine Bacteria Hyaline Casts COVID-19 (VIANCA) COVID-19 Clin Com Influenza Type A (DELTA) Influenza Type B (DELTA) Influenza A & B Note Blood Type O Positive Antibody Screen NEGATIVE 01/08/23 01/08/23 01/08/23 11:23 11:23 11:23 MCV 106.5 H MCH 30.9 MCHC 29.1 L RDW 15.9 Plt Count 203 MPV 10.5 Immature Gran % (Auto) 0.7 H Neut % (Auto) 93.1 H Lymph % (Auto) 2.5 L Darke % (Auto) 3.6 Eos % (Auto) 0.0 Baso % (Auto) 0.1 Lymph # (Auto) 0.3 L Darke # (Auto) 0.4 Eos # (Auto) 0.0 Baso # (Auto) 0.0 Abs Immat Gran (auto) 0.07 H Absolute Neuts (auto) 9.4 H Absolute Nucleated RBC 0.000 Nucleated RBC % (auto) 0.0 Smear Tech's Comments VERIFIED PT INR APTT O2 Saturation ABG pH at Pt Temp ABG pCO2 at Pt Temp ABG pO2 at Pt Temp ABG HCO3 ABG Base Excess (Actual) Anion Gap 22 H Estim Creat Clear Calc 8.0 Estimated GFR 6 POC Glucose Random Glucose 150 H Lactic Acid 1.6 Calcium 8.7 D Total Bilirubin 0.7 AST 21 ALT 13 Alkaline Phosphatase 136 H Troponin I High Sens B-Natriuretic Peptide Total Protein 5.9 L Albumin 3.5 TSH 0.73 Urine Color Urine Appearance Urine pH Ur Specific [place] Urine Protein Urine Glucose (UA) Urine Ketones Urine Blood Urine Nitrite Ur Leukocyte Esterase Urine RBC Urine WBC Ur Squamous Epith Cells Urine Bacteria Hyaline Casts COVID-19 (VIANCA) COVID-19 Clin Com Influenza Type A (DELTA) Influenza Type B (DELTA) Influenza A & B Note Blood Type Antibody Screen 01/08/23 01/08/23 01/08/23 11:23 11:23 11:23 MCV MCH MCHC RDW Plt Count MPV Immature Gran % (Auto) Neut % (Auto) Lymph % (Auto) Darke % (Auto) Eos % (Auto) Baso % (Auto) Lymph # (Auto) Darke # (Auto) Eos # (Auto) Baso # (Auto) Abs Immat Gran (auto) Absolute Neuts (auto) Absolute Nucleated RBC Nucleated RBC % (auto) Smear Tech's Comments PT INR APTT O2 Saturation ABG pH at Pt Temp ABG pCO2 at Pt Temp ABG pO2 at Pt Temp ABG HCO3 ABG Base Excess (Actual) Anion Gap Estim Creat Clear Calc Estimated GFR POC Glucose Random Glucose Lactic Acid Calcium Total Bilirubin AST ALT Alkaline Phosphatase Troponin I High Sens B-Natriuretic Peptide 2583 H Total Protein Albumin TSH Urine Color Urine Appearance Urine pH Ur Specific [place] Urine Protein Urine Glucose (UA) Urine Ketones Urine Blood Urine Nitrite Ur Leukocyte Esterase Urine RBC Urine WBC Ur Squamous Epith Cells Urine Bacteria Hyaline Casts COVID-19 (VIANCA) Negative COVID-19 Clin Com See Note Influenza Type A (DELTA) Negative Influenza Type B (DELTA) Negative Influenza A & B Note See Note Blood Type Antibody Screen 01/08/23 12:39 MCV MCH MCHC RDW Plt Count MPV Immature Gran % (Auto) Neut % (Auto) Lymph % (Auto) Darke % (Auto) Eos % (Auto) Baso % (Auto) Lymph # (Auto) Darke # (Auto) Eos # (Auto) Baso # (Auto) Abs Immat Gran (auto) Absolute Neuts (auto) Absolute Nucleated RBC Nucleated RBC % (auto) Smear Tech's Comments PT INR APTT O2 Saturation ABG pH at Pt Temp ABG pCO2 at Pt Temp ABG pO2 at Pt Temp ABG HCO3 ABG Base Excess (Actual) Anion Gap Estim Creat Clear Calc Estimated GFR POC Glucose 122 H Random Glucose Lactic Acid Calcium Total Bilirubin AST ALT Alkaline Phosphatase Troponin I High Sens B-Natriuretic Peptide Total Protein Albumin TSH Urine Color Urine Appearance Urine pH Ur Specific [place] Urine Protein Urine Glucose (UA) Urine Ketones Urine Blood Urine Nitrite Ur Leukocyte Esterase Urine RBC Urine WBC Ur Squamous Epith Cells Urine Bacteria Hyaline Casts COVID-19 (VIANCA) COVID-19 Clin Com Influenza Type A (DELTA) Influenza Type B (DELTA) Influenza A & B Note Blood Type Antibody Screen Imaging Radiologist's Impressions: Impressions Chest X-Ray 01/08/23 11:00 IMPRESSION: Endotracheal tube 8 cm above the nellie. Bilateral perihilar and lower lobe airspace disease. Differential would include pulmonary edema and pneumonia. COPD. Assessment and Plan (1) Acute on chronic renal failure: Status: Acute (2) Acute and chronic respiratory failure with hypoxia: Status: Acute (3) Hyperkalemia: Status: Acute (4) Non-compliance with renal dialysis: Status: Acute (5) COPD (chronic obstructive pulmonary disease): Status: Acute (6) Chronic paranoid schizophrenia: Status: Acute Plan Assessment: 62-year-old gentleman admitted with alteration of mental status and acute on chronic renal and respiratory failure likely secondary to poor compliance with underlying ambulatory treatments now requiring ventilatory support and urgent hemodialysis. Plan: Neuro: No acute issues. Cardiac: No evidence of sepsis, hypotension is related to needs for sedation and metabolic acidosis on the background of acute on chronic renal failure. Continue to titrate off pressors as tolerated. Pulmonary: Acute on chronic hypoxic and hypercapnic respiratory failure, likely secondary to poor compliance with dialysis treatment. Now requiring ventilatory support. Continue to titrate off as tolerated. Renal: Acute on chronic renal failure/end-stage renal disease. Patient requires urgent hemodialysis. Nephrology consultation requested. Hyperkalemia secondary to missing hemodialysis sessions. Endo: No acute issues. GI: No acute issues. ID: No acute issues. Empirically covered with ceftriaxone. Heme/Onc: No acute issues. Psych: No acute issues. Miscellaneous: No acute issues. Prophylaxis: Heparin, famotidine Diet: Nothing by mouth Critical care time spent: 60 minutes Time Spent With Patient Time: Total time managing care of this patient today ____ minutes.
[2023-01-08] MEDS: Heparin Sodium,Porcine 5,000 UNIT/ML VIAL 5000 UNIT SUBCUT ×2 (13:42→22:30)
--- NOTE | 2023-01-08 14:18 | PC.NURSE ---
vent settings AC 20, 450, 60%, 5 peep
[2023-01-08 15:24] LABS: Glucose, Whole Blood 127 mg/dL (60-115)
[2023-01-08] MEDS: Chlorhexidine Gluc Oral Rinse 15 ML MOUTHWASH BUCCAL ×2 (16:27→23:08)
--- NOTE | 2023-01-08 18:15 | ECG_ITS ---
Test Reason : bardycardia Blood Pressure : / mmHG Vent. Rate : 066 BPM Atrial Rate : 066 BPM P-R Int : 174 ms QRS Dur : 076 ms QT Int : 404 ms P-R-T Axes : 076 005 062 degrees QTc Int : 423 ms Normal sinus rhythm Normal ECG When compared with ECG of 08-JAN-2023 10:09, QRS duration has decreased Referred By: Juan Manuel Holloway Electronically Signed By:STEVE TEIXEIRA
--- NOTE | 2023-01-08 18:17 | ECG_ITS ---
Test Reason : rythum change Blood Pressure : / mmHG Vent. Rate : 138 BPM Atrial Rate : 000 BPM P-R Int : 000 ms QRS Dur : 078 ms QT Int : 330 ms P-R-T Axes : 000 002 108 degrees QTc Int : 499 ms Atrial fibrillation with rapid ventricular response ST depression, consider subendocardial injury Abnormal ECG When compared to the previous EKG of same day, rhythm change Referred By: Juan Manuel Holloway Electronically Signed By:STEVE TEIXEIRA
[2023-01-08] MEDS: Amiodarone/Dextrose 150 MG/100 ML PLAST..BAG 600 MG IV (18:35)
[2023-01-08] MEDS: Amiodarone HCL 900 MG in 0.9 % Sodium Chloride 500 ML 34.53 MG IVCONT (18:42)
[2023-01-08] MEDS: Norepinephrine Bitartrate/D5W 8 MG/250 ML PLAST..BAG 48.96 MG IV (22:23)
[2023-01-08] MEDS: fentaNYL citrate/NS 1,000 MCG/100 ML PLAST..BAG 10 MCG IVCONT (22:41)
[2023-01-09] VITALS (45 sets, daily range): BP systolic 92–146; BP diastolic 45–89; PULSE 58–106; RESP 16–27; TEMP 35–37.6; O2SAT 87–97; BMI 27.2
[2023-01-09 00:47] LABS: ABG Refer to POC result
[2023-01-09] MEDS: propofoL 1,000 MG/100 ML VIAL 24.48 MG IVCONT ×2 (02:05→05:54)
--- NOTE | 2023-01-09 04:25 | PC.NURSE ---
ASSUMED CARE OF PT AT 1900 AT WHICH TIME PT WAS RECEIVING HEMODIALYSIS. PT SEDATED ON VENTILATOR AC SETTINGS. NO RESP DIFFICULTIES. BP SOFT WHILE GETTING HD BUT LEVOPHED TITRATED HIGH 0.5 MCG/KG/MIN WITH GOOD EFFECT. LEVO CURRENTLY AT 0.12 MCG. MONITOR WAS SHOWING AFIB, HR 110-120'S BUT CONVERTED TO NSR AT THE END OF DIALYSIS TREATMENT AT APPROX 2100. HEART RATE IN NSR WAS 70'S-80'S BUT AROUND 2300, HR DROPPED TO 60'S AND STAYED THERE. AMIODARONE DRIP WAS DECREASED TO 0.5 MG/MIN AFTER 6 HOURS WHICH WAS 0030. HEMODIALYSIS REMOVED 4.5L. NO URINE OUTPUT APPRECIATED. PT IS SEDATED ON PROPOFOL AND FENTANYL WITH GOOD EFFECT. PT WAKES EASILY WHEN NAME IS CALLED BUT DOES NOT FOLLOW COMMANDS. PT TURNED AND REPOS Q2HR. [facility] IS INTACT.
[2023-01-09 05:04] LABS: VBG Base Excess 6.7 mmol/L; VBG HCO3 33 mmol/L (22-26); VBG pCO2 55 mmHg; VBG pH 7.38 (7.32-7.43); VBG pO2 57 mmHg
[2023-01-09 05:17] LABS: Venous Blood Gas Refer to POC result
[2023-01-09 05:31] LABS: MANUAL DIFF FLAG NO
[2023-01-09] MEDS: Heparin Sodium,Porcine 5,000 UNIT/ML VIAL 5000 UNIT SUBCUT ×3 (05:31→21:42)
[2023-01-09 05:33] LABS: Basophils Absolute Auto 0.1 X10*3/uL (0.0-0.2); Basophils Percent Auto 0.5 % (0-2); Eosinophils Absolute Auto 0.1 X10*3/uL (0.0-0.4); Eosinophils Percent Auto 1.1 % (0-4); Hematocrit 29.3 % (42.0-52.0); Hemoglobin 8.9 g/dl (14.0-18.0); Imm Gran Abs Auto 0.05 X10*3/uL (0.00-0.03); Imm Gran Pct Auto 0.5 % (0.0-0.4); Lymphocytes Absolute Auto 1.3 X10*3/uL (1.2-4.9); Lymphocytes Percent Auto 11.9 % (20-40); Mean Corpuscular HGB Conc 30.4 g/dl (31.0-36.0); Mean Corpuscular Hemoglobin 30.4 pg (27.0-33.0); Mean Platelet Volume 10.3 fL (9.4-12.4); Monocytes Absolute Auto 1.2 X10*3/uL (0.1-1.2); Monocytes Percent Auto 10.4 % (2-11); Neutrophils Absolute Auto 8.4 x10*3/uL (2.0-8.3); Neutrophils Percent Auto 75.6 % (45-73); Platelet Count 266 X10*3/uL (160-400); Red Blood Count 2.93 X10*6/uL (4.60-5.80); White Blood Count 11.1 X10*3/uL (4.8-10.8)
[2023-01-09 05:51] LABS: Alanine Aminotransferase 13 U/L (0-40); Albumin Level 3.5 g/dL (3.5-5.0); Alkaline Phosphatase 130 U/L (39-117); Anion Gap 18 (12-20); Aspartate Amino Transferase 15 U/L (5-37); Bilirubin Total 0.5 mg/dL (0.0-1.0); Blood Urea Nitrogen 27 mg/dL (9-16); Carbon Dioxide 25 mmol/L (22-29); Chloride 94 mmol/L (96-108); Creatinine Clr Calc Pharmacy 14.3; Estimated Glomerular Filt Rate 12; Glucose Random 120 mg/dL (60-115); Magnesium 1.8 mg/dL (1.6-2.6); Potassium 4.6 mmol/L (3.3-5.1); Sodium 132 mmol/L (135-145); Total Protein 5.9 g/dL (6.5-8.0)
[2023-01-09] MEDS: Norepinephrine Bitartrate/D5W 8 MG/250 ML PLAST..BAG 18.36 MG IV (05:51)
[2023-01-09] MEDS: fentaNYL citrate/NS 1,000 MCG/100 ML PLAST..BAG 10 MCG IVCONT (05:56)
--- NOTE | 2023-01-09 07:20 | PM.CNNEP ---
History of Present Illness Reason for Consult Consult date: 01/09/23 Chief Complaint Chief complaint: Acute Respiratory Failure History of Present Illness Narrative: 62-year-old gentleman with history of end-stage on hemodialysis found unresponsive and in respiratory distress by visiting nurse and transferred to [facility]. He was subsequently intubated and required emergent dialysis due to combined respiratory and metabolic acidosis with hyperkalemia.?At the time of the consultation he is vented and sedated, unable to give any history. Review of Systems Review of Systems unobtainable [facility] Past Medical History Medical History (Updated 01/08/23 @ 13:51 by Juan Manuel Holloway MD) Chronic paranoid schizophrenia COVID-19 End stage renal disease ESRD needing dialysis HTN (hypertension) Paranoid ideation Social History Social History Household Members: Unknown / Unable to assess Household Members Other:: self Housing: Unknown / Unable to assess Do you presently have visiting nurse or other home services: Yes Unable to assess alcohol history related to: Unknown Alcohol intake: unknown Patient Tobacco Use Status: Former Tobacco user Tobacco use type: Cigarette e-Cigarette/Vaping Use: Never Used Second Hand Smoke Exposure: No Substance Use Type: Unknown Advance Directives Date on File: 08/31/20 service: No Current occupational status: disabled Meds Allergies Allergy/AdvReac Type Severity Reaction Status Date / Time thioridazine [From MELLARIL] Allergy Unknown TONGUE Verified 05/04/21 10:08 SWELLING mellaril Allergy Severe anaphylaxis Uncoded 05/04/21 10:08 Active Medications: Current Medications Chlorhexidine Gluconate (Chlorhexidine Gluc Oral Rinse 15 Ml Mouthwash) 15 ml BUCCAL TID [facility] Last Admin: 01/08/23 23:08 Dose: 15 ml Famotidine (Famotidine/Pf 20 Mg/2 Ml Vial) 20 mg IVPUSH DAILY [facility] Fentanyl (Fentanyl Citrate/Pf 100 Mcg/2 Ml Vial) 100 mcg IVPUSH Q30M PRN; Protocol PRN Reason: Sedation Last Admin: 01/08/23 10:46 Dose: 100 mcg Heparin Sodium (Porcine) (Heparin Sodium,Porcine 5,000 Unit/Ml Vial) 5,000 unit SUBCUT Q8H [facility] Last Admin: 01/09/23 05:31 Dose: 5,000 unit Propofol (Diprivan) 1,000 mg in 100 mls @ 0 mls/hr IVCONT .Q0M ARJUN; Protocol Last Admin: 01/09/23 05:54 Dose: 50 mcg/kg/min, 24.48 mls/hr Fentanyl (Sublimaze/Ns) 1,000 mcg in 100 mls @ 0 mls/hr IVCONT .Q0M ARJUN; Protocol Last Admin: 01/09/23 05:56 Dose: 100 mcg/hr, 10 mls/hr Norepinephrine Bitartrate (Levophed) 8 mg in 250 mls @ 0 mls/hr IV .Q0M ARJUN; Protocol Last Admin: 01/09/23 05:51 Dose: 0.12 mcg/kg/min, 18.36 mls/hr Amiodarone HCl 900 mg/ Sodium (Chloride) 518 mls @ 34.533 mls/hr IVCONT .Q15H1M ARJUN; Protocol Last Infusion: 01/09/23 00:30 Dose: 0.5 mg/min, 17.27 mls/hr Naloxone HCl (Naloxone Hcl 0.4 Mg/Ml Vial) 0.2 mg IVPUSH Q2M PRN PRN Reason: Excessive sedation or RR < 8 Pharmacy Consult (Consult Rx Perform Med Rec) 1 each MISCELLANE ONCE PRN PRN Reason: Consult order Home Medications Medication Instructions Recorded Confirmed Last Taken Type albuterol sulfate 90 mcg/actuation 2 puff inhalation Q4-6H PRN 08/31/20 01/08/23 Unknown History aerosol inhaler (ProAir HFA) Shortness Of Breath aspirin 81 mg tablet,delayed 81 mg PO DAILY 08/31/20 01/08/23 Unknown History release famotidine 20 mg tablet 20 mg PO BEDTIME 08/31/20 01/08/23 Unknown History fluticasone propionate 110 1 puff inhalation BID 08/31/20 01/08/23 Unknown History mcg/actuation HFA aerosol inhaler (Flovent HFA) furosemide 80 mg tablet 80 mg PO DAILY 08/31/20 01/08/23 Unknown History loperamide 2 mg capsule 2 mg PO TID PRN Diarrhea 08/31/20 01/08/23 Unknown History metoprolol tartrate 50 mg tablet 25 mg PO BID 08/31/20 01/08/23 Unknown History paliperidone 3 mg tablet,extended 3 mg PO DAILY 08/31/20 01/08/23 Unknown History release 24 hr perphenazine 4 mg tablet 4 mg PO DAILY 08/31/20 01/08/23 Unknown History vitamin B complex and vitamin C 1 cap PO DAILY 08/31/20 01/08/23 Unknown History no.20-folic acid 1 mg capsule (Crispin Caps) cholecalciferol (vitamin D3) 125 125 mcg PO DAILY 01/13/21 01/08/23 Unknown History mcg (5,000 unit) tablet nicotine 14 mg/24 hr daily 1 patch transdermal DAILY PRN 01/13/21 01/08/23 Unknown History transdermal patch Nicotine Cravings amlodipine 5 mg tablet 5 mg PO DAILY 07/14/22 01/08/23 Unknown History midodrine 5 mg tablet 5 mg PO MOWEFR@0900,1800 07/14/22 01/08/23 Unknown History multivitamin 1 tab PO DAILY 07/14/22 01/08/23 Unknown History omega-3 fatty acids 1,000 mg 1 cap PO BID 07/14/22 01/08/23 Unknown History capsule Physical Exam Vital Signs: Last Vital Signs Temp 99.7 F 01/09/23 05:59 Pulse 62 01/09/23 05:59 Resp 20 01/09/23 05:59 BP 121/61 01/09/23 05:59 Pulse Ox 95 01/09/23 05:59 O2 Del Method Mechanical Ventilation 01/09/23 05:59 O2 Flow Rate 100 01/08/23 13:19 FiO2 50 01/09/23 05:59 BMI result Body Mass Index 27.2 Const General: ill appearing HEENT Head: Yes normocephalic and Yes atraumatic Neck Neck: Yes supple Resp Auscultation: diminished lung sounds Cardio Heart sounds: S1 normal heart sound present and S2 normal heart sound present GI Palpation (GI): Soft to palpation and no guarding Extrem General: Yes AV fistula Results Lab Results 01/09/23 05:00 01/09/23 05:00 Lab results: Chemistry 01/08/23 01/09/23 11:23 05:00 Sodium 139 132 L Potassium 7.6 H* D 4.6 D Carbon Dioxide 26 25 BUN 80 H 27 H Creatinine 9.61 H* 4.93 H* Calcium 8.7 D 9.0 Phosphorus 5.0 H Hematology 01/08/23 01/09/23 11:23 05:00 WBC 10.1 11.1 H Hgb 8.6 L D 8.9 L Plt Count 203 266 D Urinalysis 01/08/23 10:32 Urine Color Yellow Urine Appearance Clear Urine pH 7.5 Ur Specific [place] 1.010 Urine Protein 300 (3+) H Urine Glucose (UA) Negative Urine Ketones Negative Urine Blood Small (1+) H Urine Nitrite Negative Ur Leukocyte Esterase Moderate (2+) H Urine RBC 6-10 H Urine WBC 21-50 H Ur Squamous Epith Cells 0-2 Hyaline Casts 0-2 Assessment and Plan (1) End stage renal disease: Status: Acute (2) Hyperkalemia: Status: Acute (3) Respiratory failure: Status: Acute (4) Anemia: Status: Resolved Plan usually has HD at [place] dialysis unit via AVF presented with respiratory failure and hyperkalemia s/p HD yesterday REC HD tomorrow MARIYA renal diet dose medication for ESRD patient Time Spent With Patient Time: Total time managing care of this patient today ____ minutes. Procedures Date of Service Date of Service: 01/09/23
[2023-01-09] MEDS: Famotidine/PF 20 MG/2 ML VIAL IVPUSH (07:23)
[2023-01-09] MEDS: Chlorhexidine Gluc Oral Rinse 15 ML MOUTHWASH BUCCAL (07:23)
--- NOTE | 2023-01-09 10:03 | MHC.CM.PN ---
Pt is intubated and unable to partcipate in CM assessment: Information obtained from EMR and conversation w/[employer] heavy equipment service manager Isamar. Per Isamar, pt resides alone and has [employer] for home O2 and [employer] for daily medication administration. He attends [facility] on , , with the site providing transportation to and from. HCP on file. CM to follow for d/c planning needs.
--- NOTE | 2023-01-09 10:06 | P.PNCC_ITS ---
Subjective Subjective Date of Service: 01/09/23 Interval History: 62-year-old gentleman with underlying schizophrenia, end-stage on hemodialysis, COPD on supplemental oxygen, poor compliance with treatments found unresponsive and in respiratory distress by visiting nurse and transferred to [facility] by EMS. On emergency room evaluation patient in significant respiratory distress requiring intubation. Laboratory studies significant for combined respiratory and metabolic acidosis with acute on chronic renal failure, and hyperkalemia. Patient started on broad-spectrum antibiotics and admitted to intensive care unit for urgent hemodialysis and further care. patient with significant improvement in electrolyte abnormalities and hypoxia after hemodialysis. Extubated uneventfully on 01/09/2023. No events overnight. Critical Care Time (minutes): 45 Physical Exam Vital Signs: Vital Signs: Last Vital Signs Temp 99.3 F 01/09/23 09:00 Pulse 61 01/09/23 09:00 Resp 20 01/09/23 09:00 BP 113/49 L 01/09/23 09:00 Pulse Ox 91 L 01/09/23 09:00 O2 Del Method Mechanical Ventil ation 01/09/23 09:00 O2 Flow Rate 100 01/08/23 13:19 FiO2 40 01/09/23 09:35 BMI result Body Mass Index 27.2 Const: General: no acute distress, alert and awake Eyes: Sclerae: sclerae normal EOM: EOMs intact bilaterally Neck: Neck: Yes no lymphadenopathy, Yes trachea midline and Yes supple Resp: Effort & Inspection: normal respiratory effort and no respiratory distress Auscultation: crackles ( Diffuse bilateral) Cardio: Rate: regular rate Rhythm: regular rhythm Heart sounds: no gallops, no murmurs and no rubs GI: Palpation (GI): Soft to palpation and Other GI palpation findings present ( Nontender) Auscultation: normal bowel sounds Extrem: General: No clubbing, No cyanosis and Yes edema ( trace bilateral) Objective Data Labs 01/09/23 05:00 01/09/23 05:00 Labs: Laboratory Results - last 24 hr 01/08/23 01/08/23 01/08/23 09:58 10:32 10:53 WBC RBC Hgb Hct MCV MCH MCHC RDW Plt Count MPV Immature Gran % (Auto) Neut % (Auto) Lymph % (Auto) [place] % (Auto) Eos % (Auto) Baso % (Auto) Lymph # (Auto) [place] # (Auto) Eos # (Auto) Baso # (Auto) Abs Immat Gran (auto) Absolute Neuts (auto) Absolute Nucleated RBC Nucleated RBC % (auto) Smear Tech's Comments PT INR APTT O2 Saturation 92.0 ABG pH at Pt Temp 7.27 L ABG pCO2 at Pt Temp 71 H* ABG pO2 at Pt Temp 73 L ABG HCO3 32 H ABG Base Excess (Actual) TNP VBG pH VBG pCO2 VBG pO2 VBG HCO3 VBG O2 Saturation VBG Base Excess Sodium Potassium Chloride Carbon Dioxide Anion Gap BUN Creatinine Estim Creat Clear Calc Estimated GFR POC Glucose 151 H Random Glucose Lactic Acid Calcium Phosphorus Magnesium Total Bilirubin AST ALT Alkaline Phosphatase Troponin I High Sens B-Natriuretic Peptide Total Protein Albumin TSH Urine Color Yellow Urine Appearance Clear Urine pH 7.5 Ur Specific [place] 1.010 Urine Protein 300 (3+) H Urine Glucose (UA) Negative Urine Ketones Negative Urine Blood Small (1+) H Urine Nitrite Negative Ur Leukocyte Esterase Moderate (2+) H Urine RBC 6-10 H Urine WBC 21-50 H Ur Squamous Epith Cells 0-2 Urine Bacteria None Seen Hyaline Casts 0-2 COVID-19 ([facility]ANCA) COVID-19 Clin Com Influenza Type A (DELTA) Influenza Type B ([place]TA) Influenza A & B Note Blood Type Antibody Screen 01/08/23 01/08/23 01/08/23 11:22 11:22 11:22 WBC RBC Hgb Hct MCV MCH MCHC RDW Plt Count MPV Immature Gran % (Auto) Neut % (Auto) Lymph % (Auto) [place] % (Auto) Eos % (Auto) Baso % (Auto) Lymph # (Auto) [place] # (Auto) Eos # (Auto) Baso # (Auto) Abs Immat Gran (auto) Absolute Neuts (auto) Absolute Nucleated RBC Nucleated RBC % (auto) Smear Tech's Comments PT 12.1 INR 1.1 APTT 31.0 O2 Saturation ABG pH at Pt Temp ABG pCO2 at Pt Temp ABG pO2 at Pt Temp ABG HCO3 ABG Base Excess (Actual) VBG pH VBG pCO2 VBG pO2 VBG HCO3 VBG O2 Saturation VBG Base Excess Sodium Potassium Chloride Carbon Dioxide Anion Gap BUN Creatinine Estim Creat Clear Calc Estimated GFR POC Glucose Random Glucose Lactic Acid Calcium Phosphorus Magnesium Total Bilirubin AST ALT Alkaline Phosphatase Troponin I High Sens 177.4 H* B-Natriuretic Peptide Total Protein Albumin TSH Urine Color Urine Appearance Urine pH Ur Specific [place] Urine Protein Urine Glucose (UA) Urine Ketones Urine Blood Urine Nitrite Ur Leukocyte Esterase Urine RBC Urine WBC Ur Squamous Epith Cells Urine Bacteria Hyaline Casts COVID-19 (VIANCA) COVID-19 Clin Com Influenza Type A (DELTA) Influenza Type B ([place]) Influenza A & B Note Blood Type O Positive Antibody Screen NEGATIVE 01/08/23 01/08/23 01/08/23 11:23 11:23 11:23 WBC 10.1 RBC 2.78 L D Hgb 8.6 L D Hct 29.6 L D MCV 106.5 H MCH 30.9 MCHC 29.1 L RDW 15.9 Plt Count 203 MPV 10.5 Immature Gran % (Auto) 0.7 H Neut % (Auto) 93.1 H Lymph % (Auto) 2.5 L [place] % (Auto) 3.6 Eos % (Auto) 0.0 Baso % (Auto) 0.1 Lymph # (Auto) 0.3 L [place] # (Auto) 0.4 Eos # (Auto) 0.0 Baso # (Auto) 0.0 Abs Immat Gran (auto) 0.07 H Absolute Neuts (auto) 9.4 H Absolute Nucleated RBC 0.000 Nucleated RBC % (auto) 0.0 Smear Tech's Comments VERIFIED PT INR APTT O2 Saturation ABG pH at Pt Temp ABG pCO2 at Pt Temp ABG pO2 at Pt Temp ABG HCO3 ABG Base Excess (Actual) VBG pH VBG pCO2 VBG pO2 VBG HCO3 VBG O2 Saturation VBG Base Excess Sodium 139 Potassium 7.6 H* D Chloride 99 Carbon Dioxide 26 Anion Gap 22 H BUN 80 H Creatinine 9.61 H* Estim Creat Clear Calc 8.0 Estimated GFR 6 POC Glucose Random Glucose 150 H Lactic Acid 1.6 Calcium 8.7 D Phosphorus Magnesium Total Bilirubin 0.7 AST 21 ALT 13 Alkaline Phosphatase 136 H Troponin I High Sens B-Natriuretic Peptide Total Protein 5.9 L Albumin 3.5 TSH 0.73 Urine Color Urine Appearance Urine pH Ur Specific [place] Urine Protein Urine Glucose (UA) Urine Ketones Urine Blood Urine Nitrite Ur Leukocyte Esterase Urine RBC Urine WBC Ur Squamous Epith Cells Urine Bacteria Hyaline Casts COVID-19 ([facility]ANCA) COVID-19 Clin Com Influenza Type A (DELTA) Influenza Type B ([place]) Influenza A & B Note Blood Type Antibody Screen 01/08/23 01/08/23 01/08/23 11:23 11:23 11:23 WBC RBC Hgb Hct MCV MCH MCHC RDW Plt Count MPV Immature Gran % (Auto) Neut % (Auto) Lymph % (Auto) [place] % (Auto) Eos % (Auto) Baso % (Auto) Lymph # (Auto) [place] # (Auto) Eos # (Auto) Baso # (Auto) Abs Immat Gran (auto) Absolute Neuts (auto) Absolute Nucleated RBC Nucleated RBC % (auto) Smear Tech's Comments PT INR APTT O2 Saturation ABG pH at Pt Temp ABG pCO2 at Pt Temp ABG pO2 at Pt Temp ABG HCO3 ABG Base Excess (Actual) VBG pH VBG pCO2 VBG pO2 VBG HCO3 VBG O2 Saturation VBG Base Excess Sodium Potassium Chloride Carbon Dioxide Anion Gap BUN Creatinine Estim Creat Clear Calc Estimated GFR POC Glucose Random Glucose Lactic Acid Calcium Phosphorus Magnesium Total Bilirubin AST ALT Alkaline Phosphatase Troponin I High Sens B-Natriuretic Peptide 2583 H Total Protein Albumin TSH Urine Color Urine Appearance Urine pH Ur Specific [place] Urine Protein Urine Glucose (UA) Urine Ketones Urine Blood Urine Nitrite Ur Leukocyte Esterase Urine RBC Urine WBC Ur Squamous Epith Cells Urine Bacteria Hyaline Casts COVID-19 ([facility]ANCA) Negative COVID-19 Clin Com See Note Influenza Type A ([facility]TA) Negative Influenza Type B ([place]) Negative Influenza A & B Note See Note Blood Type Antibody Screen 01/08/23 01/08/23 01/09/23 12:39 15:19 04:56 WBC RBC Hgb Hct MCV MCH MCHC RDW Plt Count MPV Immature Gran % (Auto) Neut % (Auto) Lymph % (Auto) [place] % (Auto) Eos % (Auto) Baso % (Auto) Lymph # (Auto) [place] # (Auto) Eos # (Auto) Baso # (Auto) Abs Immat Gran (auto) Absolute Neuts (auto) Absolute Nucleated RBC Nucleated RBC % (auto) Smear Tech's Comments PT INR APTT O2 Saturation ABG pH at Pt Temp ABG pCO2 at Pt Temp ABG pO2 at Pt Temp ABG HCO3 ABG Base Excess (Actual) VBG pH 7.38 VBG pCO2 55 VBG pO2 57 VBG HCO3 33 H VBG O2 Saturation 87.0 VBG Base Excess 6.7 Sodium Potassium Chloride Carbon Dioxide Anion Gap BUN Creatinine Estim Creat Clear Calc Estimated GFR POC Glucose 122 H 127 H Random Glucose Lactic Acid Calcium Phosphorus Magnesium Total Bilirubin AST ALT Alkaline Phosphatase Troponin I High Sens B-Natriuretic Peptide Total Protein Albumin TSH Urine Color Urine Appearance Urine pH Ur Specific [place] Urine Protein Urine Glucose (UA) Urine Ketones Urine Blood Urine Nitrite Ur Leukocyte Esterase Urine RBC Urine WBC Ur Squamous Epith Cells Urine Bacteria Hyaline Casts COVID-19 ([facility]ANCA) COVID-19 Clin Com Influenza Type A ([place]) Influenza Type B ([place]) Influenza A & B Note Blood Type Antibody Screen 01/09/23 01/09/23 05:00 05:00 WBC 11.1 H RBC 2.93 L Hgb 8.9 L Hct 29.3 L MCV 100.0 H D MCH 30.4 MCHC 30.4 L RDW 16.0 Plt Count 266 D MPV 10.3 Immature Gran % (Auto) 0.5 H Neut % (Auto) 75.6 H Lymph % (Auto) 11.9 L [place] % (Auto) 10.4 Eos % (Auto) 1.1 Baso % (Auto) 0.5 Lymph # (Auto) 1.3 [place] # (Auto) 1.2 Eos # (Auto) 0.1 Baso # (Auto) 0.1 Abs Immat Gran (auto) 0.05 H Absolute Neuts (auto) 8.4 H Absolute Nucleated RBC 0.000 Nucleated RBC % (auto) 0.0 Smear Tech's Comments PT INR APTT O2 Saturation ABG pH at Pt Temp ABG pCO2 at Pt Temp ABG pO2 at Pt Temp ABG HCO3 ABG Base Excess (Actual) VBG pH VBG pCO2 VBG pO2 VBG HCO3 VBG O2 Saturation VBG Base Excess Sodium 132 L Potassium 4.6 D Chloride 94 L Carbon Dioxide 25 Anion Gap 18 BUN 27 H Creatinine 4.93 H* Estim Creat Clear Calc 14.3 Estimated GFR 12 POC Glucose Random Glucose 120 H Lactic Acid Calcium 9.0 Phosphorus 5.0 H Magnesium 1.8 Total Bilirubin 0.5 AST 15 ALT 13 Alkaline Phosphatase 130 H Troponin I High Sens B-Natriuretic Peptide Total Protein 5.9 L Albumin 3.5 TSH Urine Color Urine Appearance Urine pH Ur Specific [place] Urine Protein Urine Glucose (UA) Urine Ketones Urine Blood Urine Nitrite Ur Leukocyte Esterase Urine RBC Urine WBC Ur Squamous Epith Cells Urine Bacteria Hyaline Casts COVID-19 ([facility]AN[facility]) COVID-19 Clin Com Influenza Type A ([place]) Influenza Type B ([place]) Influenza A & B Note Blood Type Antibody Screen Microbiology Microbiology Results: Microbiology 01/08/23 10:39 Blood - Venous Blood Culture - Preliminary Prelim: GPC Gram Stain only 01/08/23 Unknown Urine Catheterized - Canas Catheter Urine Culture - Final No growth. Progress Note: A&P Assessment and plan (1) Chronic paranoid schizophrenia: Status: Acute (2) End stage renal disease: Status: Acute (3) Non-compliance with renal dialysis: Status: Acute (4) COPD (chronic obstructive pulmonary disease): Status: Acute (5) Supplemental oxygen dependent: Status: Acute Plan Assessment: 62-year-old gentleman admitted with alteration of mental status and acute on chronic renal and respiratory failure likely secondary to poor compliance with underlying ambulatory treatments now requiring ventilatory support and urgent hemodialysis. Plan: Neuro: No acute issues. Cardiac: No evidence of sepsis, hypotension is related to needs for sedation and metabolic acidosis on the background of acute on chronic renal failure. Continue to titrate off pressors as tolerated. Pulmonary: Acute on chronic hypoxic and hypercapnic respiratory failure, likely secondary to poor compliance with dialysis treatment. Extubated on 01/09/2023. Underlying some supplemental oxygen dependent COPD on baseline 3-4 L. Renal: End-stage renal disease. Hyperkalemia and acidosis resolved with hem odialysis. Continues on hemodialysis. Nephrology service care appreciated. Endo: No acute issues. GI: No acute issues. ID: 1/2 blood cultures positive for Staphylococcus, likely contamination. No evidence of sepsis otherwise, will continue to monitor off antibiotics. Heme/Onc: No acute issues. Psych: No acute issues. Miscellaneous: No acute issues. Prophylaxis: Heparin Diet: regular Critical care time spent: 45 minutes Quality Stroke Does the patient have a stroke diagnosis?: No VTE Prior VTE?: No VTE Risk Level:: Medical - moderate - high VTE Device Contraindication: N/A - Device Ordered VTE Drug Contraindication: N/A - Med Ordered
--- NOTE | 2023-01-09 10:22 | P.CDIM_ITS ---
PROVIDER RESPONSE TEXT: To clarify, the appropriate diagnosis supported by the clinical indicators: Encephalopathy, please specify type QUERY TEXT: >>> Provider Instructions - Do not remove this line >>> PHYSICIAN'S DOCUMENTATION REQUEST Date of Query: 01/09/2023 09:57 AM EDT Patient Name: Narinder Lara Admit Date: 01/08/2023 Dear Juan Manuel Holloway, A review of the medical record indicates additional documentation may be needed. Please review below and update the documentation accordingly. Clinical Indicators: Per Critical Care H&P 01/08/23: poor compliance with treatments found unresponsive Admitted with alteration of mental status Per Nephrology consult 01/09/23: found unresponsive Based on the above, could you clarify if any of the following, best reflects the patient's level of c onsciousness? <<< Provider Instructions - Do not remove this line <<< Unconscious Comatose Persistent vegetative state Encephalopathy, please specify type Other (explain)Clinically unable to determine (explain)>>> Contact Info Do not remove this line>>> Thank you, Tati Capone RN Use of terms such as suspected, likely, concern for, or probable (associated with a specific diagnosi s that is being evaluated, monitored, or treated as if it exists) are acceptable and can be coded in the inpatient se tting, when documented at the time of discharge. Please use your independent medical judgment in providing your response. THIS QUERY IS PART OF THE PERMANENT MEDICAL RECORD <<< Contact Info Do not remove this line <<< >>> Disclaimer - Do no remove this line>>> Extension: [phone] <<< Disclaimer - Do not remove this line<<<
--- NOTE | 2023-01-09 10:44 | MHC.CLN ---
RECOMMEND 2GM NA LOW K+, LOW PHOS DIET R/T ESRD ON HD PER RENAL TEAM
[2023-01-09] MEDS: Perphenazine 4 MG TABLET PO (12:00)
[2023-01-09] MEDS: Albuterol/Iprat 2.5/0.5MG 3 ML AMPUL.NEB INHALE ×3 (12:02→19:24)
[2023-01-09] MEDS: Paliperidone ER 3 MG TAB.ER.24 PO (14:28)
--- NOTE | 2023-01-09 19:44 | PC.NURSE ---
Assumed care at 0700- Pt extubated without complicaton at 0958. Placed on 4-6 liters Oxymizer and placed on nasal cannula while eating. Bedside swallow completed and diet started. Good po intake. No nausea vomiting noted. Propofol and Fentanyl discontinued after extubation. Weaned Levophed off at 1138. Amiodarone discontinued per MD order. quality controller- sinus rhythm/ Sinus tachycardia low 100's. Last dialysis treatment was yesterday 01/08. Canas removed, olgiuria. Call lang at bedside, bed alarm on, safety maintained.
[2023-01-10] VITALS (23 sets, daily range): BP systolic 94–141; BP diastolic 46–74; PULSE 68–102; RESP 14–31; TEMP 36.3–37.2; O2SAT 90–100; BMI 27.2
[2023-01-10] MEDS: Heparin Sodium,Porcine 5,000 UNIT/ML VIAL 5000 UNIT SUBCUT ×3 (05:09→20:57)
[2023-01-10 05:17] LABS: MANUAL DIFF FLAG NO
[2023-01-10 05:17] LABS: VBG Base Excess 6.4 mmol/L; VBG HCO3 33 mmol/L (22-26); VBG pCO2 58 mmHg; VBG pH 7.36 (7.32-7.43); VBG pO2 58 mmHg
[2023-01-10 05:18] LABS: Venous Blood Gas Refer to POC result
[2023-01-10 05:23] LABS: Basophils Percent Auto 0.4 % (0-2); Eosinophils Absolute Auto 0.1 X10*3/uL (0.0-0.4); Eosinophils Percent Auto 0.9 % (0-4); Hematocrit 25.4 % (42.0-52.0); Hemoglobin 7.6 g/dl (14.0-18.0); Imm Gran Abs Auto 0.03 X10*3/uL (0.00-0.03); Imm Gran Pct Auto 0.4 % (0.0-0.4); Lymphocytes Percent Auto 13.3 % (20-40); Mean Corpuscular HGB Conc 29.9 g/dl (31.0-36.0); Mean Corpuscular Volume 100.4 fL (80.0-98.0); Monocytes Absolute Auto 0.8 X10*3/uL (0.1-1.2); Monocytes Percent Auto 9.8 % (2-11); Neutrophils Absolute Auto 5.9 x10*3/uL (2.0-8.3); Neutrophils Percent Auto 75.2 % (45-73); Platelet Count 179 X10*3/uL (160-400); Red Blood Count 2.53 X10*6/uL (4.60-5.80); Red Cell Distribution Width 15.7 % (11.0-16.0); White Blood Count 7.8 X10*3/uL (4.8-10.8)
[2023-01-10 05:57] LABS: Alanine Aminotransferase 11 U/L (0-40); Albumin Level 3.2 g/dL (3.5-5.0); Alkaline Phosphatase 110 U/L (39-117); Anion Gap 18 (12-20); Aspartate Amino Transferase 16 U/L (5-37); Bilirubin Total 0.6 mg/dL (0.0-1.0); Blood Urea Nitrogen 53 mg/dL (9-16); Calcium 8.7 mg/dL (8.4-10.2); Carbon Dioxide 24 mmol/L (22-29); Chloride 95 mmol/L (96-108); Creatinine Clr Calc Pharmacy 9.2; Estimated Glomerular Filt Rate 7; Glucose Random 80 mg/dL (60-115); Potassium 4.3 mmol/L (3.3-5.1); Sodium 133 mmol/L (135-145); Total Protein 5.4 g/dL (6.5-8.0)
[2023-01-10] MEDS: Paliperidone ER 3 MG TAB.ER.24 PO (07:36)
[2023-01-10] MEDS: Perphenazine 4 MG TABLET PO (07:37)
[2023-01-10] MEDS: Lidocaine HCl 2 % MPF 5 ML VIAL SUBCUT (07:42)
[2023-01-10] MEDS: Albuterol/Iprat 2.5/0.5MG 3 ML AMPUL.NEB INHALE ×4 (07:59→20:42)
[2023-01-10] MEDS: Amiodarone/Dextrose 150 MG/100 ML PLAST..BAG 600 MG IV (08:55)
--- NOTE | 2023-01-10 10:01 | P.PNNP_ITS ---
Subjective Subjective Date of Service: 01/10/23 Interval history: seen and examined on dialysis extubated feels better Physical Exam Vital Signs: Vital Signs: Last Vital Signs Temp 98.2 F 01/10/23 08:00 Pulse 91 01/10/23 09:00 Resp 21 H 01/10/23 09:00 BP 108/51 L 01/10/23 09:00 Pulse Ox 93 01/10/23 09:00 O2 Del Method Nasal Cannula 01/10/23 09:00 O2 Flow Rate 6 01/10/23 09:00 FiO2 40 01/09/23 09:35 BMI result Body Mass Index 27.2 Const: General: alert and awake HEENT: Head: Yes normocephalic and Yes atraumatic Neck: Neck: Yes supple Resp: Auscultation: diminished lung sounds Cardio: Heart sounds: S1 normal heart sound present and S2 normal heart sound present GI: Palpation (GI): Soft to palpation and no guarding Extrem: General: Yes AV fistula Objective Data Labs 01/10/23 05:05 01/10/23 05:05 Labs: Laboratory Results - last 24 hr 01/08/23 01/10/23 01/10/23 11:23 05:05 05:05 WBC 7.8 RBC 2.53 L Hgb 7.6 L Hct 25.4 L MCV 100.4 H MCH 30.0 MCHC 29.9 L RDW 15.7 Plt Count 179 D MPV 10.0 Immature Gran % (Auto) 0.4 Neut % (Auto) 75.2 H Lymph % (Auto) 13.3 L [place] % (Auto) 9.8 Eos % (Auto) 0.9 Baso % (Auto) 0.4 Lymph # (Auto) 1.0 L [place] # (Auto) 0.8 Eos # (Auto) 0.1 Baso # (Auto) 0.0 Abs Immat Gran (auto) 0.03 Absolute Neuts (auto) 5.9 Absolute Nucleated RBC 0.000 Nucleated RBC % (auto) 0.0 VBG pH VBG pCO2 VBG pO2 VBG HCO3 VBG O2 Saturation VBG Base Excess Sodium 139 133 L Potassium 7.6 H* D 4.3 Chloride 99 95 L Carbon Dioxide 26 24 Anion Gap 22 H 18 BUN 80 H 53 H Creatinine 9.61 H* 7.61 H* Estim Creat Clear Calc 8.0 9.2 Estimated GFR 6 7 Random Glucose 150 H 80 Calcium 8.7 D 8.7 Total Bilirubin 0.7 0.6 AST 21 16 ALT 13 11 Alkaline Phosphatase 136 H 110 Total Protein 5.9 L 5.4 L Albumin 3.5 3.2 L TSH 0.73 01/10/23 05:07 WBC RBC Hgb Hct MCV MCH MCHC RDW Plt Count MPV Immature Gran % (Auto) Neut % (Auto) Lymph % (Auto) [place] % (Auto) Eos % (Auto) Baso % (Auto) Lymph # (Auto) [place] # (Auto) Eos # (Auto) Baso # (Auto) Abs Immat Gran (auto) Absolute Neuts (auto) Absolute Nucleated RBC Nucleated RBC % (auto) VBG pH 7.36 VBG pCO2 58 VBG pO2 58 VBG HCO3 33 H VBG O2 Saturation 84.0 VBG Base Excess 6.4 Sodium Potassium Chloride Carbon Dioxide Anion Gap BUN Creatinine Estim Creat Clear Calc Estimated GFR Random Glucose Calcium Total Bilirubin AST ALT Alkaline Phosphatase Total Protein Albumin TSH Microbiology Microbiology Results: Microbiology 01/08/23 10:39 Blood - Venous Blood Culture - Final Coag negative Staphylococcus 01/08/23 11:23 Blood - Venous Blood Culture - Preliminary No growth after 24 hours. 01/08/23 Unknown Urine Catheterized - [place] Catheter Urine Culture - Final No growth. Procedures Date of Service Date of Service: 01/10/23 Assessment & Plan Assessment and plan (1) End stage renal disease: Status: Acute (2) Respiratory failure: Status: Acute (3) Anemia: Status: Resolved Plan usually has HD at [place] dialysis unit via AVF presented with respiratory failure and hyperkalemia REC HD today optimize volume status MARIYA renal diet dose medication for ESRD patient Time Spent With Patient Time: Total time managing care of this patient today ____ minutes. Progress Note: Quality Stroke Does the patient have a stroke diagnosis?: No
--- NOTE | 2023-01-10 10:16 | P.CDIM_ITS ---
PROVIDER RESPONSE TEXT: To clarify, the appropriate diagnosis supported by the clinical indicators: Metabolic QUERY TEXT: PHYSICIAN'S DOCUMENTATION REQUEST Date of Query: 01/10/2023 10:06 AM EDT Patient Name: Narinder Lara Admit Date: 01/08/2023 Dear Juan Manuel Holloway, A review of the medical record indicates additional documentation may be needed. Please review below and update the documentation accordingly. Clinical Indicators: Clinical Indicators: Per Critical Care H&P 01/08/23: poor compliance with treatments found unresponsive Admitted with alteration of mental status Per Nephrology consult 01/09/23: found unresponsive Query for level of consciousness answered on 01/09/23 as Encephalopathy Based on the above, please further specify the type of Encephalopathy Metabolic Septic Toxic Toxic metabolic Hypertensive Anoxic Alcoholic Hepatic (reported as hepatic failure and needs further specificity as to acute, subacute, or chronic) Due to a specified condition (such as UTI, hyponatremia, CVA, etc.) Other (explain)Clinically unable to determine (explain)Thank you, Tati Capone RN Use of terms such as suspected, likely, concern for, or probable (associated with a specific diagnosi s that is being evaluated, monitored, or treated as if it exists) are acceptable and can be coded in the inpatient se tting, when documented at the time of discharge. Please use your independent medical judgment in providing your response. THIS QUERY IS PART OF THE PERMANENT MEDICAL RECORD
--- NOTE | 2023-01-10 10:29 | PM.CCPN ---
Subjective Subjective Date of Service: 01/10/23 Interval History: 62-year-old gentleman with underlying schizophrenia, end-stage on hemodialysis, COPD on supplemental oxygen, poor compliance with treatments found unresponsive and in respiratory distress by visiting nurse and transferred to [facility] by EMS. On emergency room evaluation patient in significant respiratory distress requiring intubation. Laboratory studies significant for combined respiratory and metabolic acidosis with acute on chronic renal failure, and hyperkalemia. Patient started on broad-spectrum antibiotics and admitted to intensive care unit for urgent hemodialysis and further care. patient with significant improvement in electrolyte abnormalities and hypoxia after hemodialysis. Extubated uneventfully on 01/09/2023. No events overnight. Patient with bursts of tachycardia with dialysis requiring amiodarone with good suppression. Critical Care Time (minutes): 45 Physical Exam Vital Signs: Vital Signs: Last Vital Signs Temp 98.2 F 01/10/23 08:00 Pulse 92 01/10/23 10:00 Resp 21 H 01/10/23 10:00 BP 121/52 L 01/10/23 10:00 Pulse Ox 96 01/10/23 10:00 O2 Del Method Nasal Cannula 01/10/23 10:00 O2 Flow Rate 6 01/10/23 10:00 FiO2 40 01/09/23 09:35 BMI result Body Mass Index 27.2 Const: General: no acute distress, alert and awake Eyes: Sclerae: sclerae normal EOM: EOMs intact bilaterally Neck: Neck: Yes no lymphadenopathy, Yes trachea midline and Yes supple Resp: Effort & Inspection: normal respiratory effort and no respiratory distress Auscultation: clear to auscultation bilaterally Cardio: Rate: regular rate Rhythm: regular rhythm Heart sounds: no gallops, no murmurs and no rubs GI: Palpation (GI): Soft to palpation and Other GI palpation findings present ( Nontender) Auscultation: normal bowel sounds Extrem: General: Yes no pedal edema, No clubbing and No cyanosis Objective Data Labs 01/10/23 05:05 01/10/23 05:05 Labs: Laboratory Results - last 24 hr 01/08/23 01/10/23 01/10/23 11:23 05:05 05:05 WBC 7.8 RBC 2.53 L Hgb 7.6 L Hct 25.4 L MCV 100.4 H MCH 30.0 MCHC 29.9 L RDW 15.7 Plt Count 179 D MPV 10.0 Immature Gran % (Auto) 0.4 Neut % (Auto) 75.2 H Lymph % (Auto) 13.3 L [place] % (Auto) 9.8 Eos % (Auto) 0.9 Baso % (Auto) 0.4 Lymph # (Auto) 1.0 L [place] # (Auto) 0.8 Eos # (Auto) 0.1 Baso # (Auto) 0.0 Abs Immat Gran (auto) 0.03 Absolute Neuts (auto) 5.9 Absolute Nucleated RBC 0.000 Nucleated RBC % (auto) 0.0 VBG pH VBG pCO2 VBG pO2 VBG HCO3 VBG O2 Saturation VBG Base Excess Sodium 139 133 L Potassium 7.6 H* D 4.3 Chloride 99 95 L Carbon Dioxide 26 24 Anion Gap 22 H 18 BUN 80 H 53 H Creatinine 9.61 H* 7.61 H* Estim Creat Clear Calc 8.0 9.2 Estimated GFR 6 7 Random Glucose 150 H 80 Calcium 8.7 D 8.7 Total Bilirubin 0.7 0.6 AST 21 16 ALT 13 11 Alkaline Phosphatase 136 H 110 Total Protein 5.9 L 5.4 L Albumin 3.5 3.2 L TSH 0.73 01/10/23 05:07 WBC RBC Hgb Hct MCV MCH MCHC RDW Plt Count MPV Immature Gran % (Auto) Neut % (Auto) Lymph % (Auto) [place] % (Auto) Eos % (Auto) Baso % (Auto) Lymph # (Auto) [place] # (Auto) Eos # (Auto) Baso # (Auto) Abs Immat Gran (auto) Absolute Neuts (auto) Absolute Nucleated RBC Nucleated RBC % (auto) VBG pH 7.36 VBG pCO2 58 VBG pO2 58 VBG HCO3 33 H VBG O2 Saturation 84.0 VBG Base Excess 6.4 Sodium Potassium Chloride Carbon Dioxide Anion Gap BUN Creatinine Estim Creat Clear Calc Estimated GFR Random Glucose Calcium Total Bilirubin AST ALT Alkaline Phosphatase Total Protein Albumin TSH Microbiology Microbiology Results: Microbiology 01/08/23 10:39 Blood - Venous Blood Culture - Final Coag negative Staphylococcus 01/08/23 11:23 Blood - Venous Blood Culture - Preliminary No growth after 24 hours. 01/08/23 Unknown Urine Catheterized - Canas Catheter Urine Culture - Final No growth. Progress Note: A&P Assessment and plan (1) Chronic paranoid schizophrenia: Status: Acute (2) End stage renal disease: Status: Acute (3) Acute and chronic respiratory failure with hypoxia: Status: Acute (4) SVT (supraventricular tachycardia): Status: Acute Plan Assessment: 62-year-old gentleman admitted with alteration of mental status and acute on chronic renal and respiratory failure likely secondary to poor compliance with underlying ambulatory treatments now requiring ventilatory support and urgent hemodialysis. Plan: Neuro: No acute issues. Cardiac: bursts of tachycardia with hemodialysis suppressed with amiodarone, will start on p.o. amiodarone. Pulmonary: Acute on chronic hypoxic and hypercapnic respiratory failure, likely secondary to poor compliance with dialysis treatment. Extubated on 01/09/2023. Underlying some supplemental oxygen dependent COPD on baseline 3-4 L. Renal: End-stage renal disease. Hyperkalemia and acidosis resolved with hemodialysis. Continues on hemodialysis. Nephrology service care appreciated. Endo: No acute issues. GI: No acute issues. ID: 1/2 blood cultures positive for coagulase-negative Staphylococcus, likely contamination. No evidence of sepsis otherwise, will continue to monitor off antibiotics. Heme/Onc: No acute issues. Psych: No acute issues. Miscellaneous: No acute issues. Prophylaxis: Heparin Diet: regular Critical care time spent: 45 minutes Quality Stroke Does the patient have a stroke diagnosis?: No VTE Prior VTE?: No VTE Risk Level:: Medical - moderate - high VTE Device Contraindication: N/A - Device Ordered VTE Drug Contraindication: N/A - Med Ordered
--- NOTE | 2023-01-10 15:19 | MHC.CM.PN ---
EMR REVIEWED AND PER MD ROUNDS, PT WAS EXTUBATED 01/09 WITHOUT COMPLICATION AND WILL BE TRANSFERRED TO [facility] TODAY. CM WILL CONTINUE TO FOLLOW.
--- NOTE | 2023-01-10 21:48 | MHC.PIE ---
Assumed care at 07:00. Patient alert and oriented x4, somewhat vague at times. Patient had dialysis with 2.6 kg removed, generally well tolerated, but telemetry did change from sinus rhythm to SVT with HR 164-180 BPM, no symptoms reported. MD aware, and new order for loading dose of amiodarone IV, administered with good effect, subsequent PO doses of amiodarone to continue tomorrow. Patient did endorse some mild awareness of his heartbeat, but denied chest discomfort, chest pain, or shortness of breath. Patient with a few runs of PVCs afterwards around 10 am, but otherwise returned to sinus rhthym. Patient with mild scattered wheezes and diminished lung sounds throughout, PRN updrafts with good effect. Patient with oxygen by Price nasal cannula, SpO2 was 96-98%, and the liter flow was titrated down from 6 LPM to 4 LPM. Once patient fell asleep, SpO2 dropped to 88-89% on 4 LPM, so uptitrated liter flow to 5 LPM. Patient with occasional vague complaint of pain, initially to distal mid abdomen, which resolved promptly with repositioning, and some pain to his back, that also resolved with repositioning. Patient declined pain medication upon discussion. Patient has had low urine output to no urine output and continues to have no urine output, and was bladder scanned for 180 ml, denied discomfort. Ate well. No BM today. Afebrile. Removed TLC with intact catheter and well tolerated. Fistula in RUE with +thrill/+Bruit. Patient with tranfer order, pending bed availability.
[2023-01-11] VITALS (12 sets, daily range): BP systolic 107–164; BP diastolic 46–75; PULSE 76–92; RESP 14–20; TEMP 36.2–37; O2SAT 90–97; BMI 26.7
[2023-01-11] MEDS: Heparin Sodium,Porcine 5,000 UNIT/ML VIAL 5000 UNIT SUBCUT ×3 (05:32→20:28)
--- NOTE | 2023-01-11 07:00 | CA_ITS ---
Transthoracic Echocardiogram Patient (Last, First, Middle): Narinder Lara A Gender: Male Date of : 1960 Age: 62 Procedure Date: 01/11/2023 Procedure Type: Transthoracic Echocardiogram Location: [facility] Height: 170.18 cm Weight: 77.11 kg BSA: 1.89 m2 Heart Rate: bpm BP: 149 / 69 mmHg Sales Service Representative: TO Referring MD: Samuel Farley MD Symptoms: Tachy Study Quality: Technically Difficult/Contrast ECG Rhythm: Sinus Conclusions: - The left ventricular systolic function is normal. The visually estimated ejection fraction is between 60-65%. - No obvious valvular pathology seen on this study. Findings Procedure Information Contrast agent, definity, is being given per protocol without apparent complications. Left Ventricle Normal left ventricular cavity size. The left ventricular systolic function is normal. The visually estimated ejection fraction is between 60-65%. There is no evidence of regional wall motion abnormalities. Diastolic function is normal for age. There is mild septal asymmetric hypertrophy. Right Ventricle Mildly increased right ventricular cavity size. There is normal right ventricular systolic function. Atria Both atria are normal in size. Aortic Valve There is mild calcification of the aortic valve. There is no aortic valve stenosis. There is no aortic valve regurgitation. Mitral Valve The mitral valve appears normal. There is mild mitral annular calcification. There is no mitral valve regurgitation. There is no mitral valve stenosis. Pulmonic Valve The pulmonic valve is likely normal. Tricuspid Valve There is trace tricuspid valve regurgitation. There is no evidence of pulmonary hypertension. Great Vessels The asc aorta is normal in size. Venous The inferior vena cava is mildly dilated and collapses greater than 50% with inspiration. Pericardium/Pleural There is no evidence of pericardial effusion. Prior Study Comparison Changes noted compared to prior study dated: 09/19/2019. Improvement in mitral regurgitation; pulmonary hypertension. Recommendations, Care & Conclusions No obvious valvular pathology seen on this study. Measurements 2D Linear Measurements IVSd: 1.05 0.6-0.9/0.6-1.0 cm LVIDd: 5.40 3.9-5.3/4.2-5.9 cm LVIDd Index: 2.86 2.4-3.2/2.2-3.1 cm/m2 LVIDs: 4.05 2.0-3.6 cm LVPWd: 0.74 0.7-1.1 cm LA Diam: 3.50 2.7-3.8/3.0-4.0 cm LAIDs Index: 1.85 1.5-2.3 cm/m2 LV Mass: 223.45 67-162/88-224 g LV Mass Index: 118.23 43-95/49-115 g/m2 LVOT Diam: 2.10 3.0+(-)1.3 cm 2D Systolic Function EF 4C: 64.70 >55% Mitral Valve MV Pk E: 0.90 MV PK A: 0.74 MV Decel Time: 224.00 E/A: 1.20 E'Lateral: 11.60 E'Medial: 7.18 E/E' Med: 12.50 E/E' Lat: 7.80 PHT: 66.00 MVA PHT: 3.33 Decel [place]: 4.02 Aortic Valve AoV Pk Db: 1.36 AoV Mn Db: 0.87 AoV VTI: 0.25 AoV Pk Grad: 7.00 Aov Mn Grad: 4.00 VANESSA Cont.VTI: 2.69 LVOT LVOT Pk Db: 0.91 LVOT Mn Db: 0.61 LVOT VTI: 0.19 LVOT Pk Grad: 3.00 LVOT Mn Grad: 2.00 LVOT Diam: 2.10 LVOT Area: 3.46 Diastolic Function MV Pk E: 0.90 MV Pk A: 0.74 E/A: 1.20 E'Medial: 7.18 E/E' Med: 12.50 E' Laterial: 11.60 E/E' Lat: 7.80 Right Ventricle TAPSE (mm): 28.00 TVS' Db: 14.60 Tricuspid Valve TR Pk Db: 2.43 TR Pk Grad: 24.00 Great Vessels Aorta Sinus of Valsalva: 3.13 2.0-3.5 cm Ao Asc: 3.20 2.1-3.4 cm Updated in Other Vendor System with Status of Final Sebastian Benoit MD electronically signed on 01/11/2023 4:38:39 PM with status of Final
[2023-01-11] MEDS: Albuterol/Iprat 2.5/0.5MG 3 ML AMPUL.NEB INHALE ×4 (07:58→19:14)
[2023-01-11] MEDS: Perphenazine 4 MG TABLET PO (09:52)
[2023-01-11] MEDS: Paliperidone ER 3 MG TAB.ER.24 PO (09:52)
--- NOTE | 2023-01-11 10:49 | P.CONCA_ITS ---
History of Present Illness History of Present Illness Date of Service: 01/11/23 Chief complaint: Acute Respiratory Failure Narrative: This is a cardiology consultation regarding question of cardiac arrhythmia. Per documentation, it seems that patient had respiratory failure due to poor compliance and in this context, had to have urgent hemodialysis and was in the ICU. In this context, he apparently had some bursts of tachycardia with hemodialysis for which she was put on amiodarone. Patient is of denies any specific cardiac issues like coronary disease, myocardial infarction. However, he is talking about random stuff like 04/30 terrorist attacks, him being a patriot, among other things. He denies any complaints like chest pain or shortness of breath or palpitations. Review of Systems Review of Systems: Yes all other systems are reviewed and are negative Constitutional: Constitutional: Reports as per HPI and Reports no additional constitutional complaints Eyes: Eyes: Reports as per HPI and Denies no additional eye complaints ENT: Denies system reviewed and no additional complaints, except as documented and Reports as per HPI Cardiovascular: Cardiovascular: Reports as per HPI, Reports no additional cardiovascular complaints, Denies acrocyanosis, Denies cool extremities, Denies chest pain, Denies leg edema, Denies lightheadedness, Denies palpitations and Denies dyspnea Respiratory: Respiratory: Reports as per HPI, Denies no additional respiratory complaints and Denies dyspnea Gastrointestinal: Gastrointestinal: Reports as per HPI and Denies no additional gastrointestinal complaints Genitourinary: Genitourinary: Reports no additional male genitourinary complaints and Reports as per HPI Musculoskeletal: Musculoskeletal: Reports no additional musculoskeletal complaints and Reports as per HPI Integumentary/Breasts: Skin/Breast: Reports system reviewed and no additional complaints, except as docu Neurologic: Reports system reviewed and no additional complaints, except as documented and Reports as per HPI Psychiatric: Psychiatric: Reports no additional psychiatric complaints and Reports as per HPI Endocrine: Endocrine: Reports no additional endocrine complaints, Reports as p er HPI and Denies palpitations Hematologic/Lymphatic: Hematologic/Lymphatic: Reports no additional hematologic/lymphatic complaints and Reports as per HPI Allergic/Immunologic: Allergic/Immunologic: Reports no additional allergic/immunologic complaints and Reports as per HPI [facility] Past Medical History Medical History (Updated 01/11/23 @ 10:56 by Sebastian Benoit MD) Chronic paranoid schizophrenia COVID-19 End stage renal disease ESRD needing dialysis HTN (hypertension) Paranoid ideation Family History Pertinent family history: No significant family history pertinent to this admission. Social History Social History Household Members: Unknown / Unable to assess Household Members Other:: self Housing: Unknown / Unable to assess Do you presently have visiting nurse or other home services: Yes Unable to assess alcohol history related to: Unknown Alcohol intake: unknown Patient Tobacco Use Status: Former Tobacco user Tobacco use type: Cigarette e-Cigarette/Vaping Use: Never Used Second Hand Smoke Exposure: No Substance Use Type: Unknown Advance Directives Date on File: 08/31/20 service: No Current occupational status: disabled Meds Allergies Allergy/AdvReac Type Severity Reaction Status Date / Time thioridazine [From MELLARIL] Allergy Unknown TONGUE Verified 05/04/21 10:08 SWELLING mellaril Allergy Severe anaphylaxis Uncoded 05/04/21 10:08 Active Medications: Current Medications Albuterol/Ipratropium (Albuterol/Iprat 2.5/0.5mg 3 Ml Ampul.Neb) 3 ml INHALE RQ4H WHILE AWAKE [facility] Last Admin: 01/11/23 07:58 Dose: 3 ml Heparin Sodium (Porcine) (Heparin Sodium,Porcine 5,000 Unit/Ml Vial) 5,000 unit SUBCUT Q8H [facility] Last Admin: 01/11/23 05:32 Dose: 5,000 unit Paliperidone (Paliperidone Er 3 Mg Tab.Er.24) 3 mg PO DAILY [facility] Last Admin: 01/11/23 09:52 Dose: 3 mg Perphenazine (Perphenazine 4 Mg Tablet) 4 mg PO DAILY [facility] Last Admin: 01/11/23 09:52 Dose: 4 mg Pharmacy Consult (Consult Rx Perform Med Rec) 1 each MISCELLANE ONCE PRN PRN Reason: Consult order Home Medications Medication Instructions Recorded Confirmed Last Taken Type albuterol sulfate 90 mcg/actuation 2 puff inhalation Q4-6H PRN 08/31/20 01/08/23 Unknown History aerosol inhaler (ProAir HFA) Shortness Of Breath aspirin 81 mg tablet,delayed 81 mg PO DAILY 08/31/20 01/08/23 Unknown History release famotidine 20 mg tablet 20 mg PO BEDTIME 08/31/20 01/08/23 Unknown History fluticasone propionate 110 1 puff inhalation BID 08/31/20 01/08/23 Unknown Hi story mcg/actuation HFA aerosol inhaler (Flovent HFA) furosemide 80 mg tablet 80 mg PO DAILY 08/31/20 01/08/23 Unknown History loperamide 2 mg capsule 2 mg PO TID PRN Diarrhea 08/31/20 01/08/23 Unknown History metoprolol tartrate 50 mg tablet 25 mg PO BID 08/31/20 01/08/23 Unknown History paliperidone 3 mg tablet,extended 3 mg PO DAILY 08/31/20 01/08/23 Unknown History release 24 hr perphenazine 4 mg tablet 4 mg PO DAILY 08/31/20 01/08/23 Unknown History vitamin B complex and vitamin C 1 cap PO DAILY 08/31/20 01/08/23 Unknown History no.20-folic acid 1 mg capsule (Crispin Caps) cholecalciferol (vitamin D3) 125 125 mcg PO DAILY 01/13/21 01/08/23 Unknown History mcg (5,000 unit) tablet nicotine 14 mg/24 hr daily 1 patch transdermal DAILY PRN 01/13/21 01/08/23 Unknown History transdermal patch Nicotine Cravings amlodipine 5 mg tablet 5 mg PO DAILY 07/14/22 01/08/23 Unknown History midodrine 5 mg tablet 5 mg PO MOWEFR@0900,1800 07/14/22 01/08/23 Unknown History multivitamin 1 tab PO DAILY 07/14/22 01/08/23 Unknown History omega-3 fatty acids 1,000 mg 1 cap PO BID 07/14/22 01/08/23 Unknown History capsule Physical Exam Vital Signs: Vital Signs: Last Vital Signs Temp 97.8 F 01/11/23 08:00 Pulse 80 01/11/23 08:00 Resp 20 01/11/23 08:00 BP 149/69 H 01/11/23 08:00 Pulse Ox 97 01/11/23 08:00 O2 Del Method Nasal Cannula 01/11/23 08:00 O2 Flow Rate 4 01/11/23 08:00 FiO2 40 01/09/23 09:35 BMI result Body Mass Index 26.7 Const: General: comfortable and no acute distress Orienta tion/consciousness: patient oriented x3 HEENT: Other: Unremarkable Head: Yes normal to inspection Neck: Neck: Yes normal visual inspection Chest: Chest palpation & inspection: normal inspection of the chest Resp: Auscultation: clear to auscultation bilaterally Cardio: Palpation: normal PMI Heart sounds: S1 normal heart sound present, S2 normal heart sound present, no gallops, no murmurs and no rubs GI: Palpation (GI): Soft to palpation Back/Spine/Pelvis: Other: unremarkable Skin: General skin exam: no rashes or lesions noted Neuro: General: patient oriented x3 Extrem: General: Yes normal to inspection Psych: Mental Status: mental status grossly abnormal Objective Labs and Meds 01/10/23 05:05 01/10/23 05:05 ECG Interpretation: Baseline EKG is underlying sinus rhythm at 66/Min. Subsequent EKG suggestive of atrial fibrillation with rapid ventricular response but could also be flutter. Less likely atrial tachycardia. Assessment and Plan (1) Atrial fibrillation with rapid ventricular response: Status: Acute (2) SVT (supraventricular tachycardia): Status: Acute (3) Hyperkalemia: Status: Acute (4) Acute and chronic respiratory failure with hypoxia: Status: Acute (5) End stage renal disease: Status: Acute Plan On review of labs, initial potassium was 7.6. Most recently 4.3. High sensitivity troponin 177. Cardiac BNP is 2583. He has an echocardiogram for further evaluation. Will monitor him on telemetry. Hold off further amiodarone and just go up on the home dose of beta-blockers. Hold amlodipine. Will follow up with you. d/w . Time Spent With Patient Time: Total time managing care of this patient today 75 minutes. This includes time spent in review of chart, laboratory data, imaging studies, review of telemetry, counseling patient, discussion with hospitalist, RN, documentation, coordination of care. Procedures Date of Service Date of Service: 01/11/23
--- NOTE | 2023-01-11 11:25 | HO.PM.IMPN ---
Subjective Subjective Date of Service: 01/11/23 Interval History: sob resolved Physical Exam Vital Signs: Vital Signs: Last Vital Signs Temp 97.4 F 01/11/23 11:10 Pulse 87 01/11/23 11:10 Resp 20 01/11/23 11:10 BP 144/70 H 01/11/23 11:10 Pulse Ox 94 01/11/23 11:10 O2 Del Method Nasal Cannula 01/11/23 11:10 O2 Flow Rate 2 01/11/23 11:10 FiO2 40 01/09/23 09:35 BMI result Body Mass Index 26.7 Const: General: comfortable and no acute distress Orientation/consciousness: patient oriented x3 HEENT: Other: Unremarkable Head: Yes normal to inspection Neck: Neck: Yes normal visual inspection Chest: Chest palpation & inspection: normal inspection of the chest Resp: Auscultation: clear to auscultation bilaterally Cardio: Palpation: normal PMI Heart sounds: S1 normal heart sound present, S2 normal heart sound present, no gallops, no murmurs and no rubs GI: Palpation (GI): Soft to palpation Back/Spine/Pelvis: Other: unremarkable Skin: General skin exam: no rashes or lesions noted Neuro: General: patient oriented x3 Extrem: General: Yes normal to inspection Psych: Mental Status: mental status grossly abnormal Objective Data Active Medications Albuterol/Ipratropium (Albuterol/Iprat 2.5/0.5mg 3 Ml Ampul.Neb) 3 ml INHALE RQ4H WHILE AWAKE [facility] Last Admin: 01/11/23 07:58 Dose: 3 ml Documented By: JAVED Aspirin (Aspirin Enteric Coated 81 Mg Tablet.) 81 mg PO DAILY [facility] Famotidine (Famotidine 20 Mg Tablet) 20 mg PO BEDTIME [facility] Furosemide (Furosemide 40 Mg Tablet) 80 mg PO DAILY [facility]; Protocol Heparin Sodium (Porcine) (Heparin Sodium,Porcine 5,000 Unit/Ml Vial) 5,000 unit SUBCUT Q8H [facility] Last Admin: 01/11/23 05:32 Dose: 5,000 unit Documented By: NATE Metoprolol Tartrate (Metoprolol Tartrate 50 Mg Tablet) 50 mg PO BID [facility]; Protocol Midodrine (Midodrine Hcl 5 Mg Tablet) 5 mg PO MOWEFR@0900,1800 [facility] Multivitamins/Vitamin C (Multivitamin Tablet) 1 tab PO DAILY [facility] Paliperidone (Paliperidone Er 3 Mg Tab.Er.24) 3 mg PO DAILY [facility] Last Admin: 01/11/23 09:52 Dose: 3 mg Documented By: KELI Perphenazine (Perphenazine 4 Mg Tablet) 4 mg PO DAILY [facility] Last Admin: 01/11/23 09:52 Dose: 4 mg Documented By: KELI Pharmacy Consult (Consult Rx Perform Med Rec) 1 each MISCELLANE ONCE PRN PRN Reason: Consult order Vitamin D (Cholecalciferol (Vitamin D3) 25 Mcg Tablet) 125 mcg PO DAILY [facility] Labs 01/10/23 05:05 01/10/23 05:05 Microbiology Microbiology Results: Microbiology 01/08/23 11:23 Blood Culture - Preliminary Blood - Venous No growth after 48 hours. 01/08/23 10:39 Blood Culture - Final Blood - Venous Coag negative Staphylococcus Assessment and Plan (1) Atrial fibrillation with rapid ventricular response: Status: Acute Plan 62M PMH schizophrenia, ESRD, chronic hypoxic respiratory failure due to COPD, HTN, presented with sob, was in respiratory distress in ED got intubated, underwent HD, now extubated and downgraded. acute on chronic hypoxic respiratory failure due to pulmonary edema in ESRD patient non compliant with HD complicated by severe hyperkalemia resolved ESRD HD paroxysmal afib with rvr metoprolol increased to 50mg bid holding amldoipnie check echo not on AC, ?compliance, fall risk schizopthrenia continue antipsychotics dvt porphylaixs - hep sq full code reason for continued hospitalization: awaiting echo, weaning o2 Time Spent With Patient Time: Total time managing care of this patient today ____ minutes. Quality Stroke Does the patient have a stroke diagnosis?: No VTE Prior VTE?: No VTE Risk Level:: Medical - moderate - high VTE Device Contraindication: N/A - Device Ordered VTE Drug Contraindication: N/A - Med Ordered
[2023-01-11] MEDS: Metoprolol Tartrate 50 MG TABLET PO ×2 (11:40→20:28)
--- NOTE | 2023-01-11 12:03 | MHC.CM.PN ---
Addendum entered by Anna Patricia 01/11/23 14:45: Gianna from [facility] called to state that they will need transportation set up for tomorrow for the patient after dialysis once he is cleared for discharge. Gianna confirmed that he will get a visit from [facility] tomorrow evening at approx. 6-8pm. Gianna also requests the D/C summary be faxed to them at [phone]. Original Note: EMR reviewed and per MD rounds, pt not medically cleared for discharge and needs to be monitored for one more day, and will tentatively D/C back home tomorrow on 01/12/23. Plan will be for pt to receive his dialysis tomorrow and then D/C in the afternoon. Transportation will be provided by [facility] (they will confirm), or if they are unable due to staff we will have to set up BLS/Linda. [facility] nurse Hannah ([phone]) called and was given an update. This CM called and spoke with [facility] luncheonette manager Gianna ([phone]) to update as his usual [facility] director of patient care Isamar is out sick at this time.
--- NOTE | 2023-01-11 12:15 | PM.PNNEP ---
Subjective Subjective Date of Service: 01/11/23 Interval history: seen and examined no complaints had HD yesterday Physical Exam Vital Signs: Vital Signs: Last Vital Signs Temp 97.4 F 01/11/23 11:10 Pulse 92 01/11/23 11:27 Resp 20 01/11/23 11:27 BP 144/70 H 01/11/23 11:10 Pulse Ox 94 01/11/23 11:10 O2 Del Method Nasal Cannula 01/11/23 11:10 O2 Flow Rate 2 01/11/23 11:10 FiO2 40 01/09/23 09:35 BMI result Body Mass Index 26.7 Const: General: alert, awake and ill appearing HEENT: Head: Yes normocephalic and Yes atraumatic Neck: Neck: Yes supple Resp: Auscultation: diminished lung sounds Cardio: Heart sounds: S1 normal heart sound present and S2 normal heart sound present GI: Palpation (GI): Soft to palpation and no guarding Extrem: General: Yes AV fistula Objective Data Labs 01/10/23 05:05 01/10/23 05:05 Microbiology Microbiology Results: Microbiology 01/08/23 11:23 Blood - Venous Blood Culture - Preliminary No growth after 48 hours. 01/08/23 10:39 Blood - Venous Blood Culture - Final Coag negative Staphylococcus 01/08/23 Unknown Urine Catheterized - Canas Catheter Urine Culture - Final No growth. Procedures Date of Service Date of Service: 01/11/23 Assessment & Plan Assessment and plan (1) End stage renal disease: Status: Acute (2) Respiratory failure: Status: Acute (3) Anemia: Status: Resolved Plan s/p HD yesterday usually has HD at [place] dialysis unit via AVF presented with respiratory failure and hyperkalemia adherence seems to be major factor in readmission REC HD tomorrow MARIYA renal diet dose medication for ESRD patient Time Spent With Patient Time: Total time managing care of this patient today ____ minutes. Progress Note: Quality Stroke Does the patient have a stroke diagnosis?: No
[2023-01-11] MEDS: Famotidine 20 MG TABLET PO (20:31)
[2023-01-12] VITALS: PULSE 79; RESP 18; TEMP 37; O2SAT 97
[2023-01-12 03:29] VITALS: BP 140/66; PULSE 71; RESP 18; TEMP 36.6; O2SAT 99
[2023-01-12] MEDS: Heparin Sodium,Porcine 5,000 UNIT/ML VIAL 5000 UNIT SUBCUT (05:05)
[2023-01-12 06:00] VITALS: BMI 27.0
[2023-01-12 06:42] LABS: Hematocrit 26.9 % (42.0-52.0); Hemoglobin 8.2 g/dl (14.0-18.0); Mean Corpuscular HGB Conc 30.5 g/dl (31.0-36.0); Mean Corpuscular Hemoglobin 29.6 pg (27.0-33.0); Mean Corpuscular Volume 97.1 fL (80.0-98.0); Mean Platelet Volume 10.3 fL (9.4-12.4); Platelet Count 192 X10*3/uL (160-400); Red Blood Count 2.77 X10*6/uL (4.60-5.80); Red Cell Distribution Width 15.5 % (11.0-16.0)
[2023-01-12 07:30] LABS: Anion Gap 19 (12-20); Blood Urea Nitrogen 53 mg/dL (9-16); Calcium 8.7 mg/dL (8.4-10.2); Carbon Dioxide 21 mmol/L (22-29); Chloride 96 mmol/L (96-108); Creatinine Clr Calc Pharmacy 9.4; Estimated Glomerular Filt Rate 7; Glucose Fasting 76 mg/dL (60-99); Potassium 4.6 mmol/L (3.3-5.1); Sodium 131 mmol/L (135-145)
[2023-01-12 07:43] VITALS: BP 143/68; PULSE 77; RESP 20; TEMP 36.5; O2SAT 98
[2023-01-12] MEDS: Albuterol/Iprat 2.5/0.5MG 3 ML AMPUL.NEB INHALE (07:54)
[2023-01-12 07:55] VITALS: PULSE 77; RESP 20; O2SAT 92
[2023-01-12] MEDS: Paliperidone ER 3 MG TAB.ER.24 PO (08:35)
[2023-01-12] MEDS: Cholecalciferol (Vitamin D3) 25 MCG TABLET 125 MCG PO (08:36)
[2023-01-12] MEDS: Furosemide 40 MG TABLET 80 MG PO (08:36)
[2023-01-12] MEDS: Perphenazine 4 MG TABLET PO (08:36)
[2023-01-12] MEDS: Metoprolol Tartrate 50 MG TABLET PO (08:36)
[2023-01-12] MEDS: Aspirin Enteric Coated 81 MG TABLET.DR PO (08:36)
[2023-01-12] MEDS: Midodrine HCl 5 MG TABLET PO (08:36)
[2023-01-12] MEDS: Multivitamin TABLET 1 TAB PO (08:36)
--- NOTE | 2023-01-12 09:37 | PM.DS ---
DS: Providers Provider Date of Service: 01/12/23 Date of admission: 01/08/23 13:27 Primary care physician: Sal Valencia MD Consults: 01/08/23 13:55 Consult to Nephrology Stat Consulting Provider: [facility] Reason for consultation: Hyperkalemia / ESRD / needs hemodialysis Has provider been notified: No 01/10/23 11:19 Consult to Cardiology Routine Consulting Provider: [facility] Reason for consultation: tachyarrythmia during HD DS: Diagnosis Discharge Diagnosis (1) End stage renal disease: Status: Acute (2) Respiratory failure: Status: Acute (3) Anemia: Status: Resolved DS: Summary Hospital Course Hospital Course: form initial hpi: Chief Complaint: Alteration of mental status, acute respiratory failure 62-year-old gentleman with underlying schizophrenia, end-stage on hemodialysis, COPD on supplemental oxygen, poor compliance with treatments found unresponsive and in respiratory distress by visiting nurse and transferred to [facility] by EMS.? On emergency room evaluation patient in significant respiratory distress requiring intubation.? Laboratory studies significant for combined respiratory and metabolic acidosis with acute on chronic renal failure, and hyperkalemia.? Patient started on broad-spectrum antibiotics and admitted to intensive care unit for urgent hemodialysis and further care. hospital course: patient was admitted for acute on chronic hypoxic repsiraotry failure due to pulmonary edema from missed HD in ESRD, complicated by hyperkalemia. he required intubation and ICU admission for emergent HD. during HD had episodese of paroxysmal afib with rvr. was eventually extubated, downgraded to medical floor. seen by cardiology who recommended stopping amldoipnie and increased metoporlol from 25mg bid to 50mg bid. ehco was unremarkable. for schizophrenia was continued o n antiphyschotics. for chronic hypoxia due to copd he is back on home 4L. patient feeling better and will be disdcharged home. Time Spent with Patient Time attestation: Total time managing care of this patient today ____ minutes. Discharge coordination time: Greater than 30 minutes Quality: Safe Use of Opioids Does Pt have an Active Cancer Diagnosis on the Problem List?: No Quality: Stroke Does the patient have a stroke diagnosis?: No Physical Exam Vital Signs: Vital Signs: Last Vital Signs Temp 97.7 F 01/12/23 07:43 Pulse 77 01/12/23 07:55 Resp 20 01/12/23 07:55 BP 143/68 H 01/12/23 07:43 Pulse Ox 98 01/12/23 07:43 O2 Del Method Nasal Cannula 01/12/23 07:43 O2 Flow Rate 4 01/12/23 07:43 FiO2 40 01/09/23 09:35 BMI result Body Mass Index 27.0 Const: General: alert, awake and ill appearing HEENT: Head: Yes normocephalic and Yes atraumatic Neck: Neck: Yes supple Resp: Auscultation: diminished lung sounds Cardio: Heart sounds: S1 normal heart sound present and S2 normal heart sound present GI: Palpation (GI): Soft to palpation and no guarding Extrem: General: Yes AV fistula DS: Data Data Completed and Pending Completed studies during hospitalization [Text1]: Procedures Insertion of Endotracheal Airway into Trachea, Via Natural or Artificial Opening Endoscopic (08/31/20) Introduction of Vasopressor into Peripheral Artery, Percutaneous Approach (08/31/20) Performance of Urinary Filtration, Intermittent, Less than 6 Hours Per Day (07/14/22) Respiratory Ventilation, Less than 24 Consecutive Hours (08/31/20) Transfusion of Nonautologous Red Blood Cells into Peripheral Vein, Percutaneous Approach (07/14/22) Labs on day of discharge: Laboratory Results - last 24 hr 01/12/23 01/12/23 06:14 06:14 WBC 6.0 RBC 2.77 L Hgb 8.2 L Hct 26.9 L MCV 97.1 MCH 29.6 MCHC 30.5 L RDW 15.5 Plt Count 192 MPV 10.3 Absolute Nucleated RBC 0.000 Nucleated RBC % (auto) 0.0 Sodium 131 L Potassium 4.6 Chloride 96 Carbon Dioxide 21 L Anion Gap 19 BUN 53 H Creatinine 7.51 H* Estim Creat Clear Calc 9.4 Estimated GFR 7 Fasting Glucose 76 Calcium 8.7 Preliminary micro results at discharge 01/08/23 11:23 Blood Culture - Preliminary Blood - Venous No growth after 48 hours. Discharge Plan Discharge Anticipated Discharge Date/Time: 01/12/23 09:28 Patient Disposition: Home Health Service Discharge Diagnosis: resp failure, missed hd Referrals: [facility] [Other] - 1 Week [facility] [Other] - 1 Week Sal Valencia MD [Primary Care Provider] - 1 Week Discharge Medications: New metoprolol tartrate 50 mg Tablet 50 mg PO BID Qty: 60 0RF Protocol: Hold for SBP/HR < HOLD for SBP < : 90 HOLD for HR < : 60 Continued loperamide 2 mg Capsule 2 mg PO TID PRN (Reason: Diarrhea) aspirin 81 mg Tablet,Delayed Release (Dr/Ec) 81 mg PO DAILY famotidine 20 mg Tablet 20 mg PO BEDTIME furosemide 80 mg Tablet 80 mg PO DAILY perphenazine 4 mg Tablet 4 mg PO DAILY Mcdaniel Caps 1 mg Capsule 1 cap PO DAILY fluticasone propionate [Flovent HFA] 110 mcg/actuation Hfa Aerosol Inhaler 1 puff INHALATION BID paliperidone 3 mg Tablet Extended Release 24hr 3 mg PO DAILY multivitamin Tablet 1 tab PO DAILY omega-3 fatty acids 1,000 mg capsule 1 cap PO BID midodrine 5 mg tablet 5 mg PO MOWEFR@0900,1800 Rx Instructions: before and after dialysis amlodipine 5 mg tablet 5 mg PO DAILY Protocol: Hold for SBP< HOLD for SBP < : 90 cholecalciferol (vitamin D3) 125 mcg (5,000 unit) tablet 125 mcg PO DAILY nicotine 14 mg/24 hr patch 24 hour 1 patch transdermal DAILY PRN (Reason: Nicotine Cravings) Discontinued metoprolol tartrate 50 mg Tablet 25 mg PO BID albuterol sulfate [ProAir HFA] 90 mcg/actuation Hfa Aerosol Inhaler 2 puff INHALATION Q4-6H PRN (Reason: Shortness Of Breath) Discharge Orders: Discharge Order (Routine); Ordered 01/12/23 Ordered By: Samuel Farley Diet: Advance to usual diet Activity on Discharge: As tolerated Stand Alone Forms: Patient Portal Discharge page Care Plan Goals: recovery Health Concerns: esrd Plan of Treatment: follow up with HD, stop amldoipnie, increased metoprolol Assessment: see above
--- NOTE | 2023-01-12 09:37 | MHC.CM.PN ---
Patient has been medically cleared for dc. Patient will have a visit from his [facility] worker between 6-8PM this evening. [facility]OO ARRO[facility]O has arranged BLS transport.DC summary to be faxed to [facility] @ [phone].
--- NOTE | 2023-01-12 10:35 | MHC.CM.PN ---
DC summary has been successfully faxed to [facility] @ [phone].
[2023-01-12 14:52] VITALS: BP 119/61; PULSE 80; RESP 20; TEMP 36.5; O2SAT 98
--- NOTE | 2023-01-12 15:32 | PM.PNNEP ---
Subjective Subjective Date of Service: 01/12/23 Interval history: Seen and examiend, events noted Physical Exam Vital Signs: Vital Signs: Last Vital Signs Temp 97.7 F 01/12/23 14:52 Pulse 80 01/12/23 14:52 Resp 20 01/12/23 14:52 BP 119/61 01/12/23 14:52 Pulse Ox 98 01/12/23 14:52 O2 Del Method Nasal Cannula 01/12/23 14:52 O2 Flow Rate 4 01/12/23 14:52 FiO2 40 01/09/23 09:35 BMI result Body Mass Index 27.0 Const: General: alert, awake and ill appearing HEENT: Head: Yes normocephalic and Yes atraumatic Neck: Neck: Yes supple Resp: Auscultation: diminished lung sounds Cardio: Heart sounds: S1 normal heart sound present and S2 normal heart sound present GI: Palpation (GI): Soft to palpation and no guarding Extrem: General: Yes AV fistula Objective Data Labs 01/12/23 06:14 01/12/23 06:14 Labs: Laboratory Results - last 24 hr 01/12/23 01/12/23 06:14 06:14 WBC 6.0 RBC 2.77 L Hgb 8.2 L Hct 26.9 L MCV 97.1 MCH 29.6 MCHC 30.5 L RDW 15.5 Plt Count 192 MPV 10.3 Absolute Nucleated RBC 0.000 Nucleated RBC % (auto) 0.0 Sodium 131 L Potassium 4.6 Chloride 96 Carbon Dioxide 21 L Anion Gap 19 BUN 53 H Creatinine 7.51 H* Estim Creat Clear Calc 9.4 Estimated GFR 7 Fasting Glucose 76 Calcium 8.7 Microbiology Microbiology Results: Microbiology 01/08/23 11:23 Blood - Venous Blood Culture - Preliminary No growth after 48 hours. 01/08/23 10:39 Blood - Venous Blood Culture - Final Coag negative Staphylococcus 01/08/23 Unknown Urine Catheterized - Canas Catheter Urine Culture - Final No growth. Procedures Date of Service Date of Service: 01/12/23 Assessment & Plan Assessment and plan (1) End stage renal disease: Status: Acute (2) Respiratory failure: Status: Acute (3) Anemia: Status: Resolved Plan ESRD: mwf; on HD now usually has HD at [place] dialysis unit via AVF presented with respiratory failure and hyperkalemia adherence seems to be major factor in readmission REC cont HD 3x/wk MARIYA renal diet dose medication for ESRD patient Time Spent With Patient Time: Total time managing care of this patient today ____ minutes. Progress Note: Quality Stroke Does the patient have a stroke diagnosis?: No
== END 2023-01-12 16:44 | disposition home health service (06) | DRG 133 ==
LOC: HO.ED 11:30 → HO.EDOVER 13:34 → HO.ICU 13:50 → HO.IMC 01-11 04:35
PROVIDERS: Physician Assistant Medical; Admitting Provider Internal Medicine Pulmonary Disease; Emergency Provider Emergency Medicine; PCP Internal Medicine; Visit Provider Internal Medicine
DX: J96.21 Acute and chronic respiratory failure with hypoxia (principal); G93.41 Metabolic encephalopathy; E87.4 Mixed disorder of acid-base balance; I12.0 Hypertensive chronic kidney disease with stage 5 chronic kidney disease or end stage renal disease; N18.6 End stage renal disease; N17.9 Acute kidney failure, unspecified; D63.1 Anemia in chronic kidney disease; I95.9 Hypotension, unspecified; F20.0 Paranoid schizophrenia; Z99.81 Dependence on supplemental oxygen; I47.1 Supraventricular tachycardia; N39.0 Urinary tract infection, site not specified; E87.5 Hyperkalemia; Z20.822 Contact with and (suspected) exposure to COVID-19; Z99.2 Dependence on renal dialysis; Z91.158 Patient's noncompliance with renal dialysis for other reason; Z88.8 Allergy status to other drugs, medicaments and biological substances; Z79.51 Long term (current) use of inhaled steroids; Z79.82 Long term (current) use of aspirin; Z79.899 Other long term (current) drug therapy
CPT/HCPCS: 36415; 70450; 71045; 80048; 80053; 81001; 82803; 82947; 83605; 83735; 83880; 84100; 84443; 84484; 85025; 85027; 85610; 85730; 86850; 86900; 86901; 87040; 87086; 87147; 87205; 87502; 87635; 90999; 93005; 93306; 94002; 94003; 94640; 99285; C1758; J0282; J0283; J0330; J0613; J0696; J0885; J1643; J3010; Q9957

== ENCOUNTER → 2023-02-01 14:05 | Outpatient (BNVA) | payer OTHER, SELFPAY | PROVIDERS: PCP Internal Medicine; Visit Provider Internal Medicine Pulmonary Disease | DX: J44.9 Chronic obstructive pulmonary disease, unspecified (principal); R91.8 Other nonspecific abnormal finding of lung field; Z99.81 Dependence on supplemental oxygen | CPT/HCPCS: 99212 ==

== ENCOUNTER 2023-02-27 11:16 | Outpatient (REF) | payer OTHER, SELFPAY ==
--- NOTE | ~2023-02-27 | CT_ITS ---
EXAMINATION: CT CHEST WITHOUT CONTRAST CLINICAL INFORMATION: Other nonspecific abnormal finding of lung field COMPARISON: Previous chest x-ray most recent December [address] April 2021 TECHNIQUE: Multidetector volumetric CT imaging of the chest was done. Axial MIP volume rendering provided. Sagittal and coronal reformatted images were obtained. This CT examination was performed using dose optimization techniques as appropriate, variously including the following: *Automated exposure control *Adjustment of mA and/or kV according to patient size (this includes techniques or standardized protocols for targeted exams where dose is matched to indication/reason for exam; i.e. extremities or head) *Use of iterative reconstruction technique DLP: 336 mGy-cm FINDINGS: COMPLAINT INSPECTOR: Emphysema. Old bilateral rib fractures. LUNGS: Exam is limited due to artifact from respiratory motion. There is evidence of severe emphysema with bullous changes in both upper lobes. There is crowding of lung markings in the lower lung vizcaino due to emphysematous changes. No definite nodule, mass or evidence of pneumonia is seen. No endobronchial or endotracheal lesion. MEDIASTINUM: The mediastinum is normal. CORONARY ARTERY CALCIFICATION: Mild PLEURA: There is no pleural effusion. No pleural mass or thickening. AXILLA: No lymphadenopathy. UPPER ABDOMEN: Bilateral renal cysts. No imaging follow-up recommended. 1.2 cm low-attenuation right adrenal nodule. Hounsfield units measure 9 without contrast and this probably represents a benign lipid rich adenoma. This is unchanged from prior exam. No imaging follow-up recommended. OSSEOUS STRUCTURES: Old trauma to the bilateral ribs. Degenerative changes of the spine. CT/CT chest wo IV con IMPRESSION: Limited exam due to artifact from respiratory motion. Severe emphysema with bullous changes in the upper lungs. No acute pulmonary findings. Fleischner guidelines were followed.
== END 2023-02-27 11:17 | disposition home or self-care (01) ==
LOC: HO.CT 11:16
PROVIDERS: Visit Provider Internal Medicine Pulmonary Disease
DX: R91.8 Other nonspecific abnormal finding of lung field (principal)
CPT/HCPCS: 71250

== ENCOUNTER 2023-03-06 14:24 | Outpatient (AMB) | payer OTHER, SELFPAY ==
--- NOTE | 2023-03-06 14:27 | MHC.OFFVIS ---
Intake Vital Signs 03/06/23 14:28 Height 5 ft 7 in Weight 167 lb BMI 26.2 BP 120/80 Pulse 82 Pulse Oximetry (%) 95 Intake Visit Reasons: CT follow up Intake Note: pt is here to discuss CT results. he has been coughing and runny nose, he would like to know if O2 can be put down to 2 lt Allergies thioridazine [From [facility]] Allergy (Severe, Verified 03/06/23 14:27) Anaphylaxis, tongue swelling HPI CT follow up HPI Details 62-year-old gentleman, recent 60+ pack-year smoker, with underlying schizophrenia followed for pulmonary nodules and supplemental oxygen dependent at 4 L COPD.??Patient has recently been hospitalized at [facility] for dyspnea on exertion secondary to missing his hemodialysis sessions. No recent COPD exacerbations. After the last office visit he completed his follow-up CT chest, however results not available at this time. He states that he feels like his breathing better and he is using supplemental oxygen at 2 L only. ? [facility] Medical History (Updated 01/11/23 @ 10:56 by Sebastian Benoit MD) Chronic paranoid schizophrenia COVID-19 End stage renal disease ESRD needing dialysis HTN (hypertension) Paranoid ideation Social History Household Members: Unknown / Unable to assess Household Members Other:: self Housing: Unknown / Unable to assess Do you presently have visiting nurse or other home services: Yes Unable to assess alcohol history related to: Unknown Alcohol intake: unknown Patient Tobacco Use Status: Former Tobacco user Tobacco use type: Cigarette e-Cigarette/Vaping Use: Never Used Second Hand Smoke Exposure: No Substance Use Type: Unknown Advance Directives Date on File: 08/31/20 service: No Current occupational status: disabled Review of Systems Const Denies daytime sleepiness, Denies excessive sweating, Denies fatigue, Denies fever(s), Denies lethargy, Denies malaise, Denies night sweats, Denies snoring and Denies weight loss Eyes Denies blurry vision and Denies itchy eyes ENT Denies nasal congestion, Denies post nasal drip, Denies sinus pain, Denies sinus pressure and Denies other ( Thrush) Card Denies chest pain, Denies pedal edema, Denies dyspnea, Denies orthopnea and Denies paroxysmal nocturnal dyspnea Resp Denies cough, Denies hemoptysis, Denies excessive phlegm production, Denies dyspnea, Denies snoring and Denies wheezing GI Denies abdominal pain and Denies heartburn Musc Denies myalgias, Denies arthralgias and Denies joint swelling Skin/Breast Denies rash Neuro Denies memory loss and Denies seizure-like activity Psych Denies abnormal sleep pattern, Denies anxiety and Denies memory loss Endo Denies excessive sweating, Denies fatigue and Denies heat intolerance Paul/Lymph Denies easy bruising Aller/Immun Denies itchy eyes, Denies seasonal rhinorrhea and Denies wheezing Physical Exam Vital Signs: Last Vital Signs Pulse 82 03/06/23 14:28 BP 120/80 03/06/23 14:28 Pulse Ox 95 03/06/23 14:28 BMI result Body Mass Index 26.2 Const General: no acute distress and alert Nutritional Appearance: not obese Orientation/consciousness: Other orientation findings ( oriented) HEENT Head: Yes atraumatic Eyes General: appearance normal, both eyes and all related structures Sclerae: sclerae normal EOM: EOMs intact bilaterally Neck Neck: Yes supple Lymphatic: no lymphadenopathy noted Resp Effort & Inspection: normal respiratory effort and no use of accessory muscles Auscultation: clear to auscultation bilaterally Cardio Rate: regular rate Rhythm: regular rhythm Heart sounds: no gallops, no murmurs and no rubs Skin General skin exam: other ( warm) Extrem General: No clubbing, No cyanosis and No edema Assessment & Plan Assessment & Plan (1) COPD (chronic obstructive pulmonary disease): Code(s): J44.9 - Chronic obstructive pulmonary disease, unspecified Plan: Well controlled on current regimen of Wixela, Spiriva, duo nebs. Continue current regimen. (2) Supplemental oxygen dependent: Code(s): Z99.81 - Dependence on supplemental oxygen Plan: Continue supplemental oxygen to maintain O2 saturation of 88-92%. (3) Pulmonary nodules/lesions, multiple: Code(s): R91.8 - Other nonspecific abnormal finding of lung field Plan: Four images from follow-up CT chest from 02/27/2023 reviewed, at this time no significant increasing underlying pulmonary nodules noted. Official read is not available at this time. Will repeat CT chest in 6 months. Orders: Orders CT chest wo IV con 08/29/23 R91.8 - Other nonspecific abnormal finding of lung field Coding Level of Care Code Est Pt Level 4 (05203) Diagnoses COPD (chronic obstructive pulmonary disease) J44.9 Supplemental oxygen dependent Z99.81 Pulmonary nodules/lesions, multiple R91.8
[2023-03-06 14:28] VITALS: BP 120/80; PULSE 82; O2SAT 95; BMI 26.2
== END 2023-03-06 15:11 | disposition home or self-care (01) ==
PROVIDERS: PCP Internal Medicine; Visit Provider Internal Medicine Pulmonary Disease
DX: J44.9 Chronic obstructive pulmonary disease, unspecified (principal); Z99.81 Dependence on supplemental oxygen; R91.8 Other nonspecific abnormal finding of lung field
CPT/HCPCS: 99214

== ENCOUNTER → 2023-03-06 14:24 | Outpatient (BNVA) | payer OTHER, SELFPAY | PROVIDERS: PCP Internal Medicine; Visit Provider Internal Medicine Pulmonary Disease | DX: J44.9 Chronic obstructive pulmonary disease, unspecified (principal); R91.8 Other nonspecific abnormal finding of lung field; Z99.81 Dependence on supplemental oxygen | CPT/HCPCS: 99212 ==

== ENCOUNTER 2023-11-15 10:28 | Outpatient (AMB) | payer OTHER, SELFPAY ==
--- NOTE | 2023-11-15 10:28 | A.OFFVIS_ITS ---
Intake Vital Signs 11/15/23 10:31 Height 5 ft 7 in Weight 170 lb BMI 26.6 BP 118/67 Blood Pressure Location Rt brachial Position Sitting Pulse 82 Pulse Source Doppler Pulse Oximetry (%) 96 Oxygen Delivery Method Nasal Cannula Oxygen Flow Rate 2 Intake Visit Reasons: Dyspnea Allergies thioridazine [From MELLARIL] Allergy (Severe, Verified 03/06/23 14:27) Anaphylaxis, tongue swelling HPI Dyspnea HPI Details 63-year-old gentleman, recent 60+ pack-y ear smoker, with underlying schizophrenia followed for pulmonary nodules and supplemental oxygen dependent at 2 L at rest and 4 L with exertion COPD.?? he continues on hemodialysis for his underlying ESRD. He denies recent exacerbations for underlying COPD. He continues on Wixela, Spiriva, and albuterol MDI. Unfortunately, he has not been using his duo nebs/Brovana. [facility] Medical History (Updated 01/11/23 @ 10:56 by Sebastian Benoit MD) ESRD needing dialysis Chronic paranoid schizophrenia Paranoid ideation HTN (hypertension) End stage renal disease COVID-19 Social History Household Members: Unknown / Unable to assess Household Members Other:: self Housing: Unknown / Unable to assess Do you presently have visiting nurse or other home services: Yes Unable to assess alcohol history related to: Unknown Alcohol intake: unknown Patient Tobacco Use Status: Former Tobacco user Tobacco use type: Cigarette e-Cigarette/Vaping Use: Never Used Second Hand Smoke Exposure: No Substance Use Type: Unknown Advance Directives Date on File: 08/31/20 service: No Current occupational status: disabled Review of Systems Const Denies daytime sleepiness, Denies excessive sweating, Denies fatigue, Denies fever(s), Denies lethargy, Denies malaise, Denies night sweats, Denies snoring and Denies weight loss Eyes Denies blurry vision and Denies itchy eyes ENT Denies nasal congestion, Denies post nasal drip, Denies sinus pain, Denies sinus pressure and Denies other ( Thrush) Card Denies chest pain, Denies pedal edema, Denies dyspnea, Reports dyspnea on exertion, Denies orthopnea and Denies paroxysmal nocturnal dyspnea Resp Denies cough, Denies hemoptysis, Denies excessive phlegm production, Denies dyspnea, Reports dyspnea on exertion, Denies snoring and Denies wheezing GI Denies abdominal pain and Denies heartburn Musc Denies myalgias, Denies arthralgias and Denies joint swelling Skin/Breast Denies rash Neuro Denies memory loss and Denies seizure-like activity Psych Denies abnormal sleep pattern, Denies anxiety and Denies memory loss Endo Denies excessive sweating, Denies fatigue and Denies heat intolerance Paul/Lymph Denies easy bruising Aller/Immun Denies itchy eyes, Denies seasonal rhinorrhea and Denies wheezing Physical Exam Vital Signs: Last Vital Signs Pulse 82 11/15/23 10:31 BP 118/67 11/15/23 10:31 Pulse Ox 96 11/15/23 10:31 Oxygen Delivery Method Nasal Cannula 11/15/23 10:31 Oxygen Flow Rate 2 11/15/23 10:31 BMI result Body Mass Index 26.6 Const General: no acute distress and alert Nutritional Appearance: not obese Orientation/consciousness: Other orientation findings ( oriented) HEENT Head: Yes atraumatic Eyes General: appearance normal, both eyes and all related structures Sclerae: sclerae normal EOM: EOMs intact bilaterally Neck Neck: Yes supple Lymphatic: no lymphadenopathy noted Resp Effort & Inspection: normal respiratory effort and no use of accessory muscles Auscultation: clear to auscultation bilaterally Cardio Rate: regular rate Rhythm: regular rhythm Heart sounds: no gallops, no murmurs and no rubs Skin General skin exam: other ( warm) Extrem General: No clubbing, No cyanosis and No edema Assessment & Plan Assessment & Plan (1) COPD (chronic obstructive pulmonary disease): Code(s): J44.9 - Chronic obstructive pulmonary disease, unspecified Plan: Suboptimal control as patient has not been using his Brovana/duo nebs. Restart Brovana and duo nebs. Continue Symbicort, Wixela, and albuterol MDI. (2) Supplemental oxygen dependent: Code(s): Z99.81 - Dependence on supplemental oxygen Plan: Continue supplemental oxygen to maintain O2 saturation of 88-90%. (3) Pulmonary nodules/lesions, multiple: Code(s): R91.8 - Other nonspecific abnormal finding of lung field Plan: Underlying multiple pulmonary nodules. Follow-up CT scan is pending for February of 2024. Orders: Orders CT chest wo IV con 03/06/24 R91.8 - Other nonspecific abnormal finding of lung field Coding Level of Care Code Est Pt Level 4 (85585) Diagnoses COPD (chronic obstructive pulmonary disease) J44.9 Supplemental oxygen dependent Z99.81 Pulmonary nodules/lesions, multiple R91.8
[2023-11-15 10:31] VITALS: BP 118/67; PULSE 82; O2SAT 96; BMI 26.6
== END 2023-11-15 10:50 | disposition home or self-care (01) ==
PROVIDERS: PCP Internal Medicine; Visit Provider Internal Medicine Pulmonary Disease
DX: J44.9 Chronic obstructive pulmonary disease, unspecified (principal); Z99.81 Dependence on supplemental oxygen; R91.8 Other nonspecific abnormal finding of lung field
CPT/HCPCS: 99214

== ENCOUNTER → 2023-11-15 10:28 | Outpatient (BNVA) | payer OTHER, SELFPAY | PROVIDERS: PCP Internal Medicine; Visit Provider Internal Medicine Pulmonary Disease | DX: J44.9 Chronic obstructive pulmonary disease, unspecified (principal); R91.8 Other nonspecific abnormal finding of lung field; Z99.81 Dependence on supplemental oxygen | CPT/HCPCS: 99212 ==

== ENCOUNTER 2024-03-06 10:29 | Outpatient (REF) | payer OTHER, SELFPAY ==
--- NOTE | ~2024-03-06 | CT_ITS ---
EXAMINATION: CT CHEST WITHOUT CONTRAST CLINICAL INFORMATION: Pulmonary nodules. COMPARISON: CT scans dating between February 27, 2023 and February 14, 2019. TECHNIQUE: Multidetector volumetric CT imaging of the chest was done. Axial MIP volume rendering provided. Sagittal and coronal reformatted images were obtained. This CT examination was performed using dose optimization techniques as appropriate, variously including the following: *Automated exposure control *Adjustment of mA and/or kV according to patient size (this includes techniques or standardized protocols for targeted exams where dose is matched to indication/reason for exam; i.e. extremities or head) *Use of iterative reconstruction technique DLP: 261 mGy-cm FINDINGS: LUNGS: Severe emphysema. No evidence of acute inflammation or suspicious nodule. Scattered benign calcified granulomata related to pulmonary lymph nodes. Scattered zones of chronic interstitial prominence on the right, not really changed. Minimal right basilar atelectasis. MEDIASTINUM: The mediastinum appears unremarkable. CORONARY ARTERY CALCIFICATION: None visualized on this study. PLEURA: There is no pleural effusion. No pleural mass or thickening. CHEST WALL/AXILLA: No lymphadenopathy by size criteria. Mild bilateral gynecomastia. UPPER ABDOMEN: Approximately 1.4 cm benign right adrenal adenoma demonstrating Hounsfield unit density of -7 (image 62, series 4). Bilateral simple renal cysts for which no further dedicated follow-up imaging as indicated. OSSEOUS STRUCTURES: Old, healed rib fractures. CT/CT chest wo IV con IMPRESSION: No suspicious lung nodule identified. Severe emphysema. Electronically signed by: Zackery Manning MD 04/24/2024 04:07 PM EDT
== END 2024-03-06 10:30 | disposition home or self-care (01) ==
LOC: HO.CT 10:29
PROVIDERS: Visit Provider Internal Medicine Pulmonary Disease
DX: R91.8 Other nonspecific abnormal finding of lung field (principal)
CPT/HCPCS: 71250

== ENCOUNTER 2024-05-20 11:13 | Outpatient (AMB) | payer MEDICARE, MEDICAID, SELFPAY ==
[2024-05-20 11:15] VITALS: BP 114/62; PULSE 90; O2SAT 97; BMI 30.2
--- NOTE | 2024-05-20 11:15 | A.OFFVIS_ITS ---
Vital Signs 05/20/24 11:15 Height 5 ft 7 in Weight 192 lb 14.472 oz BMI 30.2 BP 114/62 Blood Pressure Location Rt brachial Position Sitting Pulse 90 Pulse Source Doppler Pulse Oximetry (%) 97 Oxygen Delivery Method Nasal Cannula Oxygen Flow Rate 4 Intake Visit Reasons: dyspnea Allergies thioridazine [From MELLARIL] Allergy (Severe, Verified 05/20/24 11:21) Anaphylaxis, tongue swelling HPI HPI dyspnea: Details: 63-year-old gentleman, recent 60+ pack-year smoker, with underlying schizophrenia followed for pulmonary nodules and supplemental oxygen dependent at 2 L at rest and 4 L with exertion COPD.?? He continues on hemodialysis for his underlying ESRD. He denies recent exacerbations for underlying COPD. He continues on Wixela, Spiriva, and albuterol MDI. [facility] Medical History (Updated 01/11/23 @ 10:56 by Sebastian Benoit MD) ESRD needing dialysis Chronic paranoid schizophrenia Paranoid ideation HTN (hypertension) End stage renal disease COVID-19 Social History Household Members: Unknown / Unable to assess Household Members Other:: self Housing: Unknown / Unable to assess Do you presently have visiting nurse or other home services: Yes Unable to assess alcohol history related to: Unknown Alcohol intake: unknown Patient Tobacco Use Status: Former Tobacco user Tobacco use type: Cigarette e-Cigarette/Vaping Use: Never Used Second Hand Smoke Exposure: No Substance Use Type: Unknown Advance Directives Date on File: 08/31/20 service: No Current occupational status: disabled Review of Systems Const Denies daytime sleepiness, Denies excessive sweating, Denies fatigue, Denies fever(s), Denies lethargy, Denies malaise, Denies night sweats, Denies snoring and Denies weight loss Eyes Denies blurry vision and Denies itchy eyes ENT Denies nasal congestion, Denies post nasal drip, Denies sinus pain, Denies sinus pressure and Denies other ( Thrush) Card Denies chest pain, Denies pedal edema, Denies dyspnea, Denies orthopnea and Denies paroxysmal nocturnal dyspnea Resp Denies cough, Denies hemoptysis, Denies excessive phlegm production, Denies dyspnea, Denies snoring and Denies wheezing GI Denies abdominal pain and Denies heartburn Musc Denies myalgias, Denies arthralgias and Denies joint swelling Skin/Breast Denies rash Neuro Denies memory loss and Denies seizure-like activity Psych Denies abnormal sleep pattern, Denies anxiety and Denies memory loss Endo Denies excessive sweating, Denies fatigue and Denies heat intolerance Paul/Lymph Denies easy bruising Aller/Immun Denies itchy eyes, Denies seasonal rhinorrhea and Denies wheezing Physical Exam Vital Signs: Last Vital Signs Pulse 90 05/20/24 11:15 BP 114/62 05/20/24 11:15 Pulse Ox 97 05/20/24 11:15 Oxygen Delivery Method Nasal Cannula 05/20/24 11:15 Oxygen Flow Rate 4 05/20/24 11:15 BMI result Body Mass Index 30.2 Const General: no acute distress and alert Nutritional Appearance: not obese Orientation/consciousness: Other orientation findings ( oriented) HEENT Head: Yes atraumatic Eyes General: appearance normal, both eyes and all related structures Sclerae: sclerae normal EOM: EOMs intact bilaterally Neck Neck: Yes supple Lymphatic: no lymphadenopathy noted Resp Effort & Inspection: normal respiratory effort and no use of accessory muscles Auscultation: clear to auscultation bilaterally Cardio Rate: regular rate Rhythm: regular rhythm Heart sounds: no gallops, no murmurs and no rubs Skin General skin exam: other ( warm) Extrem General: No clubbing, No cyanosis and No edema Assessment & Plan Assessment & Plan (1) COPD (chronic obstructive pulmonary disease): Code(s): J44.9 - Chronic obstructive pulmonary disease, unspecified Category: Medical Plan: Well controlled on current regimen of Wixela, Spiriva, Brovana, duo nebs, and albuterol MDI. Continue current regimen. (2) Supplemental oxygen dependent: Code(s): Z99.81 - Dependence on supplemental oxygen Category: Medical Plan: Continue supplemental oxygen to maintain O2 saturation of 88-92%. (3) Pulmonary nodules/lesions, multiple: Code(s): R91.8 - Other nonspecific abnormal finding of lung field Category: Medical Plan: Results of most recent CT chest reviewed, no worrisome nodules noted. Coding Level of Care Code Est Pt Level 4 (57916) Diagnoses COPD (chronic obstructive pulmonary disease) J44.9 Supplemental oxygen dependent Z99.81 Pulmonary nodules/lesions, multiple R91.8
== END 2024-05-20 12:10 | disposition home or self-care (01) ==
PROVIDERS: PCP Internal Medicine; Visit Provider Internal Medicine Pulmonary Disease
DX: J44.9 Chronic obstructive pulmonary disease, unspecified (principal); Z99.81 Dependence on supplemental oxygen; R91.8 Other nonspecific abnormal finding of lung field
CPT/HCPCS: 99214

== ENCOUNTER → 2024-05-20 11:13 | Outpatient (BNVA) | payer MEDICARE, MEDICAID, SELFPAY | PROVIDERS: PCP Internal Medicine; Visit Provider Internal Medicine Pulmonary Disease | DX: J44.1 Chronic obstructive pulmonary disease with (acute) exacerbation (principal); R91.8 Other nonspecific abnormal finding of lung field; Z99.81 Dependence on supplemental oxygen | CPT/HCPCS: 99212 ==

== ENCOUNTER 2024-09-15 10:49 | Inpatient (IN) | payer MEDICARE, MEDICAID, SELFPAY ==
[2024-09-15] VITALS (31 sets, daily range): BP systolic 74–157; BP diastolic 38–90; PULSE 61–130; RESP 12–19; TEMP 34.7–36.6; O2SAT 88–100; BMI 27.0; BMI 26.5
--- NOTE | ~2024-09-15 | CT_ITS ---
EXAMINATION: CT ABDOMEN AND PELVIS WITHOUT CONTRAST CLINICAL INFORMATION: Unresponsive, bleeding. COMPARISON: 08/31/2020. TECHNIQUE: Multidetector volumetric imaging was performed from the superior aspect of the liver through the pubic symphysis. Sagittal and coronal reformatted images were obtained on the technologist's workstation. This CT examination was performed using dose optimization techniques as appropriate, variously including the following: *Automated exposure control *Adjustment of mA and/or kV according to patient size (this includes techniques or standardized protocols for targeted exams where dose is matched to indication/reason for exam; i.e. extremities or head) *Use of iterative reconstruction technique FINDINGS: LUNG BASES: Refer to the dedicated CT thorax performed concurrently. LIVER, GALLBLADDER, AND BILIARY TREE: The liver is normal in size, shape, and attenuation. No focal hepatic lesion or biliary ductal dilatation is present. The gallbladder demonstrates a tiny calcified intraluminal gallstone. No evidence of gallbladder wall thickening, or obvious pericholecystic inflammatory changes. PANCREAS: Unremarkable. SPLEEN: Mild splenomegaly, with CC diameter of 13.9 cm ADRENAL GLANDS: -1.7 cm right adrenal adenoma, lateral martell. -Left is normal. KIDNEYS AND URETERS: -Kidneys are moderately atrophic with diffuse cortical thinning, several parenchymal cysts, and moderate right hydronephrosis. There are numerous renal calcifications, which appear within the cortex is apposed to the collecting system. There are probable vascular calcifications in the hilar regions. -The right renal pelvis and proximal ureter are somewhat hyperattenuating, possibly on the basis of hemorrhage and/or infection. -The right ureter past the right UPJ is nondilated. -Left ureter is nondilated. BLADDER: -Collapsed around a Canas catheter balloon. Limited evaluation. Distal ureters are nondilated. -There is mild perivesicular fat stranding. GASTROINTESTINAL TRACT: -NG tube terminates within the proximal body of the stomach. -Stomach, duodenum, and small bowel are normal in course and caliber. -No evidence of appendicitis. -The colon is grossly normal in course and caliber. There is moderate to severe diverticulosis of the sigmoid, with moderate changes in the descending colon. No evidence of inflammation or wall thickening. ABDOMINAL WALL: There is a fat-containing periumbilical hernia, with hernia sac measuring approximately 3.8 cm in diameter. LYMPH NODES: 9-no pathologic lymphadenopathy. VASCULAR: Moderate atheromatous changes of the aorta and iliac arteries. There is a fusiform dilatation of the mid aorta with maximal diameter of 2.4 cm. PELVIC VISCERA: The prostate and seminal vesicles are unremarkable. OSSEOUS STRUCTURES: -There has been prior placement of orthopedic hardware within the right proximal femur, fixating an intertrochanteric hip fracture. There is a small fluid collection surrounding the proximal aspect of the femoral head compression screw extending into the soft tissues, measuring approximately 3.7 x 2.4 x 5.9 cm (AP, TRV, CC). (Series 23, image 90). Mild periscrew lucency is present abutting the proximal screw within the bone. Cannot exclude infection given the appearance. -No suspicious lytic or blastic bone lesions. -Bones appear mildly hyperdense, possibly representing renal osteodystrophy. CT/CT abdomen pelvis wo IV con IMPRESSION: 1. Moderate right hydronephrosis with hyperattenuation in the right renal pelvis, possibly representing collecting system hemorrhage or infection. There is abrupt caliber change at the ureteropelvic junction with the remainder of the ureter appearing nondilated. No definite obstructing lesion is evident. 2. Significant atrophy, cysts, parenchymal and vascular calcifications in both kidneys. No left-sided hydronephrosis. 3. Urinary bladder is contracted around a Canas catheter balloon. There is mild perivesicular stranding, nonspecific. 4. Severe diverticulosis of the sigmoid colon without evidence of acute inflammation. 5. Small fluid collection abutting the RIGHT greater trochanter, along the base of the femoral head compression screw, measuring 3.7 x 2.4 x 5.9 cm. This is nonspecific, differential includes infection, versus bursitis. Mild periscrew lucency surrounding the most proximal femoral head screw within the greater trochanter. 6. Mild splenomegaly. 7. NG tube in good position. Findings of the chest, abdomen, and pelvis CT were communicated to Dr. Gonzalez of the Emergency Department, as well as the ICU care team at 1:10 PM, 09/15/2024. Electronically signed by: Ranulfo Andujar MD 09/15/2024 01:18 PM [facility] [place]
--- NOTE | ~2024-09-15 | XR_ITS ---
CLINICAL HISTORY: To verify tube placement 1 view chest x-ray Comparison: CR - XR CHEST 1V - 09/17/24 20:17 EST Findings: Bilateral basilar interstitial opacities. Endotracheal tube terminates in the mid intrathoracic trachea. Normal size heart. No acute fracture. IMPRESSION: 1. Endotracheal tube terminates in the mid intrathoracic trachea. 2. Basilar reticular opacities, interstitial edema or infiltrate versus chronic interstitial lung change. This document has been electronically signed by: Sumeet Nickerson MD, PHD on 09/25/2024 02:05:14
--- NOTE | ~2024-09-15 | CT_ITS ---
EXAMINATION: CT HEAD WITHOUT CONTRAST CLINICAL INFORMATION: Unresponsive. COMPARISON: 01/08/2023, 08/31/2020. TECHNIQUE: Contiguous axial imaging was performed from the skull base to vertex without intravenous administration of contrast. This CT examination was performed using dose optimization techniques as appropriate, variously including the following: *Automated exposure control *Adjustment of mA and/or kV according to patient size (this includes techniques or standardized protocols for targeted exams where dose is matched to indication/reason for exam; i.e. extremities or head) *Use of iterative reconstruction technique FINDINGS: There is no evidence of intracranial hemorrhage or extra-axial fluid collection. There is no mass effect, or edema. No CT evidence of acute territorial infarct. Mildly prominent lateral and third ventricles, unchanged from prior exams and in keeping with central volume loss. No hydrocephalus. No midline shift. Otherwise, sulci and cisterns are normal in size and configuration for patient age. Mild predominant periventricular white matter hypodensities, in keeping with small vessel ischemia. Normal pituitary. Mild atheromatous calcification of the bilateral carotid siphons and V4 segments vertebral arteries bilaterally. Globes and orbital contents image normally. No extracranial soft tissue abnormalities. Endotracheal tube and ET tube noted in the oropharynx. Fluid in the posterior nasopharynx is nonspecific in the setting of intubation. The paranasal sinuses, mastoid air cells, and tympanic cavities are normally aerated. No suspicious bony abnormalities. CT/CT head/brain wo IV con IMPRESSION: No acute intracranial abnormalities. Stable chronic findings. Electronically signed by: Ranulfo Andujar MD 09/15/2024 12:35 PM [facility]
--- NOTE | ~2024-09-15 | XR_ITS ---
EXAMINATION: XR CHEST CLINICAL INFORMATION: intubated COMPARISON: X-ray dated January 08, 2023 TECHNIQUE: Frontal view of the chest was obtained. FINDINGS: The endotracheal tube ends at 4 cm above nellie. Bilateral pulmonary reticular nodular pattern with patchy opacities in the right lower hemithorax. Low lung volume, right lung. No pneumothorax. No gross pleural effusion. Cardiomediastinal silhouette is normal in size. Calcified plaque aortic arch. There is an NG tube in the mediastinum tip is not included in the [id number] likely below the left hemidiaphragm. XR/XR chest 1V IMPRESSION: Status post intubation ending 4 cm above nellie. Concerning acute on chronic airspace disease involving mostly the right lung. Electronically signed by: Phillip Saleem MD 09/15/2024 11:48 AM [facility]
--- NOTE | ~2024-09-15 | CT_ITS ---
CLINICAL HISTORY: ?Septic R Shoulder CT right humerus with contrast Comparison: None Findings: Underlying the posterior head of the deltoid there is unorganized fluid and a small amount of gas with no enhancement. Within the glenohumeral joint and subcoracoid space there is a small amount of gas. There is no shoulder joint fluid or capsular enhancement. No elbow effusion. Mild degenerative changes. No acute fracture or dislocation. No foreign bodies. Impression: 1. Unorganized fluid and soft tissue gas at the right shoulder suggesting there has been a recent intervention. No findings of a septic joint. This document has been electronically signed by: Kelli Muñoz MD on 09/15/2024 23:28:24
--- NOTE | ~2024-09-15 | CT_ITS ---
CLINICAL HISTORY: ?Septic R Hip CT right femur with contrast Comparison: None Findings: Old femoral neck fracture. Proximal femoral nail. No hardware complications. No acute fracture or dislocation. No hip or knee effusion. No mass, fluid collection, or abnormal enhancement. Canas catheter decompresses urinary bladder. Impression: 1. No findings of septic hip. This document has been electronically signed by: Kelli Muñoz MD on 09/15/2024 23:04:36
--- NOTE | ~2024-09-15 | CT_ITS ---
EXAMINATION: CT CHEST WITHOUT CONTRAST CLINICAL INFORMATION: Unresponsive. COMPARISON: 03/06/2024, 02/27/2023. TECHNIQUE: Multidetector volumetric CT imaging of the chest was done. Axial MIP volume rendering provided. Sagittal and coronal reformatted images were obtained. This CT examination was performed using dose optimization techniques as appropriate, variously including the following: *Automated exposure control *Adjustment of mA and/or kV according to patient size (this includes techniques or standardized protocols for targeted exams where dose is matched to indication/reason for exam; i.e. 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 Nasogastric tube just extends into the fundus of the stomach, the sidehole just beyond the GE junction. LUNGS: -Severe centrilobular pulmonary emphysema with apical bullous changes. -Segmental consolidations in the lateral right middle lobe, inferolateral right upper lobe, right lower lobe extending into the costophrenic sulci, left lower lobe extending into the costophrenic sulcus. Findings are suggestive of multilobar pneumonia. -There is associated bronchial wall thickening diffusely, most significant in the regions of parenchymal consolidation. -Elevated right hemidiaphragm with mild right lung volume loss. -There are numerous scattered calcified granulomata. -No effusion or pneumothorax. MEDIASTINUM: -No hematoma. No mediastinal mass. -Solitary 1.2 cm short axis lymph node in the subcarinal region, presumably reactive. No additional mediastinal lymphadenopathy. -Heart size is top normal. No pericardial effusion. -Main pulmonary artery is normal in caliber. -Aorta is moderately calcified without aneurysm. The imaged thyroid is normal. CORONARY ARTERY CALCIFICATION: Moderate three-vessel calcification. AXILLA/CHEST WALL: -No lymphadenopathy. -There is fluid surrounding the right glenohumeral joint with foci of gas present both in the joint, and within the subscapularis muscle. -There is fluid present extending into the rotator cuff musculature, suggesting intramuscular abscesses. The overall appearance could be consistent with septic arthropathy with myositis. Evaluation limited without contrast. UPPER ABDOMEN: Refer to the dedicated CT abdomen and pelvis. OSSEOUS STRUCTURES: -There are numerous healed rib fractures bilaterally. -No suspicious lytic or blastic bone lesion. -No acute fracture seen. CT/CT chest wo IV con IMPRESSION: 1. Multifocal consolidations with small airway thickening, consistent with multifocal pneumonia. No effusion or pneumothorax. 2. Severe centrilobular emphysema. 3. Fluid surrounding the right glenohumeral joint and extending into the rotator cuff musculature, with foci of gas present, uncertain etiology but highly suggestive of septic arthropathy. Evaluation is limited without IV contrast. 4. Endotracheal tube and NG tube well positioned. Electronically signed by: Ranulfo Andujar MD 09/15/2024 12:50 PM [facility] [place]
--- NOTE | ~2024-09-15 | CT_ITS ---
EXAMINATION: CT ABDOMEN PELVIS WITH IV CONTRAST HISTORY: gi bleed COMPARISON: Comparison is made with the prior examination dated 09/15/2024. TECHNIQUE: CT scan of the abdomen and pelvis was performed following administration of 85 mL Omnipaque 350 using standard departmental protocol. Coronal and sagittal reformatted images were generated and reviewed. Oral contrast material was not administered at the request of the referring physician. This CT exam was performed with one or more of the following dose reduction techniques: automated exposure control, adjustment of the mA and/or kV according to patient size, use of iterative reconstruction technique. DLP: 765 mGy-cm FINDINGS: LOWER CHEST: There are emphysematous changes at the lung bases. Patchy airspace opacities are noted at both lung bases which likely represent atelectasis.. There is no pleural effusion. CARDIOVASCULATURE: The heart is normal in size. There is no pericardial effusion. LIVER: The liver is normal in size and contour, but demonstrates markedly heterogeneous decreased attenuation, consistent with steatosis. No liver mass is identified. The hepatic and portal veins are patent. GALLBLADDER / BILE DUCTS: There is a tiny calculus in the gallbladder. There is no intra or extrahepatic biliary ductal dilatation. SPLEEN: The spleen is normal in size. No focal splenic lesion is identified. PANCREAS: When compared to the prior examination, the pancreas is enlarged and there is mild peripancreatic inflammatory stranding and fluid, consistent with acute pancreatitis. There is decreased enhancement of the head/uncinate process of the pancreas, compatible with necrosis. The remainder the pancreas enhances normally. The pancreatic duct is not dilated. There is no loculated peripancreatic fluid collection. ADRENAL GLANDS: Again noted is a 1.6 cm right adrenal nodule. The left adrenal gland is unremarkable. KIDNEYS/RETROPERITONEUM: The kidneys are again noted to be markedly atrophic. There are tiny nonobstructing calculi in both kidneys. There are probable subcentimeter bilateral renal cysts. LYMPH NODES: No abdominal or pelvic lymphadenopathy. VASCULATURE: The abdominal aorta demonstrates atherosclerotic calcification, but is normal in caliber. MESENTERY/PERITONEUM: There is a small amount of free fluid in the right paracolic gutter. There is no free intraperitoneal gas. STOMACH: The stomach is distended with fluid. SMALL BOWEL: The small bowel is normal in caliber. COLON: The colon is distended with fluid. There is wall thickening and diverticulosis of the sigmoid colon. No definite pericolonic inflammatory stranding is seen. APPENDIX: The appendix is not seen, however no inflammatory changes are seen adjacent to the cecum. URINARY BLADDER/PELVIC ORGANS: There is hyperdense material layering in the urinary bladder which may represent blood. The prostate is normal in size. BONES / SOFT TISSUES: The patient is status post internal fixation of the right femur. CT/CT abdomen pelvis w IV con IMPRESSION: 1. Findings consistent with acute pancreatitis as described. There is decreased enhancement of the pancreatic head/uncinate process, compatible with necrosis. No loculated peripancreatic fluid collection is seen. 2. Cholelithiasis. 3. The colon is distended with fluid. There is wall thickening and diverticulosis of the sigmoid colon without evidence of diverticulitis. 4. Possible hemorrhage in the urinary bladder. 5. Heterogeneous hepatic steatosis. Markedly atrophic kidneys. Electronically signed by: Robson Holden MD 09/25/2024 11:33 AM EST
--- NOTE | ~2024-09-15 | XR_ITS ---
CLINICAL HISTORY: CVC placement 1 view chest x-ray Comparison: CR/AR/SR - XR CHEST 1V - 09/15/24 11:05 EST Findings: Emphysema is severe in the upper lungs. There is either ill-defined opacity at the left midlung or overlapping shadows. No pleural effusion. Normal size heart. No acute fracture. IMPRESSION: 1. Left internal jugular central venous catheter in the upper SVC. No pneumothorax. 2. Questionable left midlung opacity. Follow-up as needed. This document has been electronically signed by: Kelli Muñoz MD on 09/17/2024 21:56:50
--- NOTE | 2024-09-15 10:57 | ECG_ITS ---
Test Reason : unresponsive Blood Pressure : */* mmHG Vent. Rate : 130 BPM Atrial Rate : 147 BPM P-R Int : * ms QRS Dur : 76 ms QT Int : 300 ms P-R-T Axes : * -58 185 degrees QTcB Int : 441 ms Undetermined rhythm Left axis deviation Marked ST abnormality, possible inferolateral subendocardial injury Abnormal ECG When compared with ECG of 08-Jan-2023 18:17, Current undetermined rhythm precludes rhythm comparison, needs review QRS axis Shifted left QRS voltage has decreased Inverted T waves have replaced nonspecific T wave abnormality in Lateral leads Referred By: Inocente Gonzalez Electronically Signed By:
--- NOTE | 2024-09-15 11:03 | PC.NURSE ---
DR BROWN AT BEDSIDE, ALL ORDERS PLACED VIA VERBAL WHILE MD TELLING US IN THE ROOM
--- NOTE | 2024-09-15 11:11 | ED.AMS ---
HPI - Altered Mental Status General Chief Complaint: Respiratory Arrest Stated Complaint: UNRESPONSIVE PER EMS Time Seen by Provider: 09/15/24 10:51 Source: EMS Mode of arrival: EMS History of Present Illness HPI narrative: This is 64 years old male with a history of end-stage renal disease on dialysis brought in by the cleaner and presser because altered mental status. Patient arrived basically unresponsive with BVM ventilation by the cleaner and presser he was intubated at the arrival by me . Per cleaner and presser [facility] called an ambulance because he was unresponsive. MD complaint: altered mental status Onset (ago): hour(s) (2) Severity: severe Context: other (CRF on dyalisis) Related Data Home Medications ?Medication ?Instructions ?Recorded ?Confirmed aspirin 81 mg tablet,delayed 81 mg PO DAILY 08/31/20 01/08/23 release famotidine 20 mg tablet 20 mg PO BEDTIME 08/31/20 01/08/23 furosemide 80 mg tablet 80 mg PO DAILY 08/31/20 01/08/23 loperamide 2 mg capsule 2 mg PO TID PRN Diarrhea 08/31/20 01/08/23 paliperidone 3 mg tablet,extended 3 mg PO DAILY 08/31/20 01/08/23 release 24 hr perphenazine 4 mg tablet 4 mg PO DAILY 08/31/20 01/08/23 vitamin B complex and vitamin C 1 cap PO DAILY 08/31/20 01/08/23 no.20-folic acid 1 mg capsule ([place] Caps) cholecalciferol (vitamin D3) 125 125 mcg PO DAILY 01/13/21 01/08/23 mcg (5,000 unit) tablet nicotine 14 mg/24 hr daily 1 patch transdermal DAILY PRN 01/13/21 01/08/23 transdermal patch Nicotine Cravings amlodipine 5 mg tablet 5 mg PO DAILY 07/14/22 01/08/23 midodrine 5 mg tablet 5 mg PO MOWEFR@0900,1800 07/14/22 01/08/23 multivitamin 1 tab PO DAILY 07/14/22 01/08/23 omega-3 fatty acids 1,000 mg 1 cap PO BID 07/14/22 01/08/23 capsule arformoterol 15 mcg/2 mL solution 2 ml inhalation BID 11/15/23 for nebulization (Brovana) ipratropium 0.5 mg-albuterol 3 mg 3 ml inhalation Q6-8H PRN 11/15/23 (2.5 mg base)/3 mL nebulization soln fluticasone propionate 110 1 puff inhalation BID 09/15/24 mcg/actuation HFA aerosol inhaler Previous Rx's ?Medication ?Instructions ?Recorded metoprolol tartrate 50 mg tablet 50 mg PO BID #60 tabs 01/12/23 albuterol sulfate 90 mcg/actuation 2 puff inhalation Q4-6H PRN 04/29/24 aerosol inhaler shortness of breath or wheezing #1 ea fluticasone 100 mcg-salmeterol 50 1 inh inhalation BID 30 days #60 ea 04/29/24 mcg/dose blistr powdr for inhalation (Wixela Inhub) tiotropium bromide 1.25 2 puff inhalation QAM 30 days #4 04/29/24 mcg/actuation mist for inhalation grams (Spiriva Respimat) Allergies Allergy/AdvReac Type Severity Reaction Status Date / Time thioridazine [From MELLARIL] Allergy Severe Anaphylaxis, Verified 09/15/24 12:19 tongue swelling Review of Systems Review of Systems: Yes Unobtainable due to mental condition [facility] Past Medical History Medical History ESRD needing dialysis Chronic paranoid schizophrenia Paranoid ideation HTN (hypertension) End stage renal disease COVID-19 Social History Social History Household Members: Unknown / Unable to assess Household Members Other:: self Housing: Unknown / Unable to assess Do you presently have visiting nurse or other home services: Yes Unable to assess alcohol history related to: Unknown Alcohol intake: unknown Patient Tobacco Use Status: Former Tobacco user Tobacco use type: Cigarette e-Cigarette/Vaping Use: Never Used Second Hand Smoke Exposure: No Substance Use Type: Unknown Advance Directives Date on File: 08/31/20 service: No Current occupational status: disabled Physical Exam ED Vital Signs: Vital Signs - 24 hr 09/15/24 10:59 09/15/24 11:19 09/15/24 11:23 Temperature Pulse Rate 130 H 118 H Respiratory Rate 18 16 Blood Pressure 131/62 157/90 H Pulse Oximetry 100 Oxygen Delivery Method Fraction of Inspired Oxygen 100 09/15/24 11:53 Temperature 97.9 F Pulse Rate 87 Respiratory Rate 16 Blood Pressure 123/59 L Pulse Oximetry 100 Oxygen Delivery Method Mechanical Ventilation Fraction of Inspired Oxygen BMI result Body Mass Index 27.0 Unresponsive BVM ventilation by the EMS [facility] Other: Pupils miotic Head: Yes normal to inspection Face and sinus: Yes normal facial exam Neck Neck: Yes full ROM Chest Chest palpation & inspection: normal inspection of the chest Resp Auscultation: clear to auscultation bilaterally Cardio Jugular venous distension: no JVD Rate: regular rate Rhythm: regular rhythm GI Inspection: Yes normal to inspection Palpation (GI): Soft to palpation, not firm and nontender Neuro Other: Basically unresponsive Course Reevaluation(s) Reevaluation #1: Patient was intubated by me with RS I 7.5 ET tube inserted Reevaluation #2: Patient hemodynamic stable electrocardiogram within normal limit K 5.4 patient will go to intensive care unit discussed with crm architect.His temp is normal X 2 97.9 and 97. 5, BP OK Suspect volume overload. Missed dyalisis Today ,CT chest pending at this time Time: 12:46 Reevaluation #3: Radiology called the he has a multifocal pneumonia by CT I communicate these findings to the crm architect, she will start on antibiotic. Time: 13:47 Medications Administered Generic Name Dose Route Start Last Admin Trade Name Freq PRN Reason Stop Dose Admin Propofol 1,000 mg in 100 mls @ 0 mls/hr 09/15/24 11:15 09/15/24 13:33 Diprivan IVCONT 30 mcg/kg/min .Q0M ARJUN 15.8 mls/hr Titration Protocol Per Protocol Sodium Bicarbonate 150 meq/ 1,000 mls @ 100 mls/hr 09/15/24 12:15 09/15/24 13:13 Dextrose IV 100 mls/hr .Q10H ARJUN Administration Discontinued Medications Generic Name Dose Route Start Last Admin Trade Name Freq PRN Reason Stop Dose Admin Albuterol Sulfate 7.5 mg/ 10 mg 09/15/24 12:08 09/15/24 12:22 Albuterol Sulfate 2.5 mg INHALE 09/15/24 12:09 10 mg ONCE ONE Administration Calcium Chloride 1 gm 09/15/24 12:08 09/15/24 12:50 Calcium Chloride 1 Gm/10 Ml Syringe IVPUSH 09/15/24 12:09 Not Given STAT STA Calcium Chloride 1 gm 09/15/24 12:08 09/15/24 12:22 Calcium Chloride 1 Gm/10 Ml Syringe IVPUSH 09/15/24 12:09 Not Given STAT STA Etomidate 20 mg 09/15/24 12:02 09/15/24 12:21 Etomidate 20 Mg/10 Ml Vial IVPUSH 09/15/24 12:03 20 mg ONCE ONE Administration Heparin Sodium (Porcine) 5,000 unit 09/15/24 12:15 09/15/24 12:50 Heparin Sodium,Porcine 5,000 Unit/Ml Vial SUBCUT Not Given Q8H ARJUN Calcium Gluconate 1 gm in 50 mls @ 50 mls/hr 09/15/24 12:09 09/15/24 12:50 Calcium Gluconate IV 09/15/24 13:08 Not Given ONCE ONE Rocuronium Spearman 100 mg 09/15/24 12:02 09/15/24 12:22 Rocuronium Spearman 50 Mg/5 Ml Vial IVPUSH 09/15/24 12:03 100 mg ONCE ONE Administration Sodium Bicarbonate 50 meq 09/15/24 12:08 09/15/24 12:41 Sodium Bicarbonate 8.4% 50 Meq/50 Ml Syringe IVPUSH 09/15/24 12:09 50 meq ONCE ONE Administration Sodium Bicarbonate 50 meq 09/15/24 12:08 09/15/24 12:22 Sodium Bicarbonate 8.4% 50 Meq/50 Ml Syringe IVPUSH 09/15/24 12:09 Not Given ONCE ONE Medical Decision Making Medical Decision Making [facility] Narrative: Patient presented with altered mental status with BVM with ventilation by the cleaner and presser intubated in the field will check labs a CT Differential Diagnosis Differential Diagnoses: The differential diagnosis associated with the presentation includes Subdural hematoma/intracranial bleeding/encephalopathy secondary to metabolic derangement/pulmonary edema/hyperkalemia/doubt sepsis he is afebrile temperature is 97.9 degrees rectally repeated 97.5. Actually his blood pressure has been okay after intubation Admission/Observation Consideration of admission/observation: Escalation of care including admission/observation considered Consult Healthcare Provider Management of the patient was discussed with: Processing Mgr Lab Data [facility] Lab Attestation statement: I reviewed the patient's lab results. 09/15/24 11:04 09/15/24 12:09 Labs: Lab Results 09/15/24 09/15/2409/15/25 Range/Units 11:04 11:05 11:13 WBC 13.7 H (4.8-10.8) X10*3/uL RBC 3.03 L (4.60-5.80) X10*6/uL Hgb 10.1 L D (14.0-18.0) g/dl Hct 32.1 L (42.0-52.0) % MCV 105.9 H (80.0-98.0) fL MCH 33.3 H (27.0-33.0) pg MCHC 31.5 (31.0-36.0) g/dl RDW 16.2 H (11.0-16.0) % Plt Count 288 D (160-400) X10*3/uL MPV 10.6 (9.4-12.4) fL Immature Gran % (Auto) 1.8 H (0.0-0.4) % Neut % (Auto) 81.4 H (45-73) % Lymph % (Auto) 9.1 L (20-40) % [place] % (Auto) 5.4 (2-11) % Eos % (Auto) 1.6 (0-4) % Baso % (Auto) 0.7 (0-2) % Lymph # (Auto) 1.3 (1.2-4.9) X10*3/uL [place] # (Auto) 0.7 (0.1-1.2) X10*3/uL Eos # (Auto) 0.2 (0.0-0.4) X10*3/uL Baso # (Auto) 0.1 (0.0-0.2) X10*3/uL Abs Immat Gran (auto) 0.24 H (0.00-0.03) X10*3/uL Absolute Neuts (auto) 11.1 H (2.0-8.3) x10*3/uL Absolute Nucleated RBC 0.000 (0.0-0.012) X10*3/uL Nucleated RBC % (auto) 0.0 (0.0-0.2) /100WBC PT 13.2 H (10.9-12.4) SEC INR 1.1 (0.9-1.1) VBG pH 7.19 L* (7.32-7.43) VBG pCO2 46 mmHg VBG pO2 57 mmHg VBG HCO3 18 L (22-26) mmol/L VBG O2 Saturation 78.0 % VBG Base Excess -9.7 mmol/L Sodium (135-145) mmol/L Potassium (3.3-5.1) mmol/L Chloride (96-108) mmol/L Carbon Dioxide (22-29) mmol/L Anion Gap (12-20) BUN (9-16) mg/dL Creatinine (0.5-1.4) mg/dL Estim Creat Clear Calc Estimated GFR Random Glucose (60-115) mg/dL Lactic Acid (0.5-2.0) mmol/L Calcium (8.4-10.2) mg/dL Total Bilirubin (0.0-1.0) mg/dL AST (5-37) U/L ALT (0-40) U/L Alkaline Phosphatase (39-117) U/L Troponin I High Sens (<3.5-35.0) ng/L Total Protein (6.5-8.0) g/dL Albumin (3.5-5.0) g/dL Urine Color Urine Appearance Urine pH (5.0-9.0) Ur Specific [place] (1.005-1.025) Urine Protein (Neg-Trace) mg/dL Urine Glucose (UA) (Negative) mg/dL Urine Ketones (Negative) mg/dL Urine Blood (Negative) Urine Nitrite (Negative) Ur Leukocyte Esterase (Negative) Urine RBC (0-2) /HPF Urine WBC (0-5) /HPF Ur Squamous Epith Cells (0-2) /HPF Urine Bacteria (None Seen) Hyaline Casts (0-2) /LPF Stool Occult Blood NEGATIVE (NEGATIVE) Urine Opiates Screen (Not Detect) Ur Buprenorphine Scrn (Not Detect) ng/mL Ur Oxycodone Screen (Not Detect) ng/mL Urine Methadone Screen (Not Detect) ng/mL Urine Fentanyl Screen (Not Detect) Ur Barbiturates Screen (Not Detect) Ur Phencyclidine Scrn (Not Detect) Ur Amphetamines Screen (Not Detect) U Benzodiazepines Scrn (Not Detect) Urine Cocaine Screen (Not Detect) U Marijuana (THC) Screen (Not Detect) Blood Type O Positive Antibody Screen NEGATIVE 09/15/24 09/15/24 09/15/24 Range/Units 11:54 12:09 12:10 WBC (4.8-10.8) X10*3/uL RBC (4.60-5.80) X10*6/uL Hgb (14.0-18.0) g/dl Hct (42.0-52.0) % MCV (80.0-98.0) fL MCH (27.0-33.0) pg MCHC (31.0-36.0) g/dl RDW (11.0-16.0) % Plt Count (160-400) X10*3/uL MPV (9.4-12.4) fL Immature Gran % (Auto) (0.0-0.4) % Neut % (Auto) (45-73) % Lymph % (Auto) (20-40) % [place] % (Auto) (2-11) % Eos % (Auto) (0-4) % Baso % (Auto) (0-2) % Lymph # (Auto) (1.2-4.9) X10*3/uL [place] # (Auto) (0.1-1.2) X10*3/uL Eos # (Auto) (0.0-0.4) X10*3/uL Baso # (Auto) (0.0-0.2) X10*3/uL Abs Immat Gran (auto) (0.00-0.03) X10*3/uL Absolute Neuts (auto) (2.0-8.3) x10*3/uL Absolute Nucleated RBC (0.0-0.012) X10*3/uL Nucleated RBC % (auto) (0.0-0.2) /100WBC PT (10.9-12.4) SEC INR (0.9-1.1) VBG pH (7.32-7.43) VBG pCO2 mmHg VBG pO2 mmHg VBG HCO3 (22-26) mmol/L VBG O2 Saturation % VBG Base Excess mmol/L Sodium 137 (135-145) mmol/L Potassium 5.4 H (3.3-5.1) mmol/L Chloride 100 (96-108) mmol/L Carbon Dioxide 18 L (22-29) mmol/L Anion Gap 24 H (12-20) BUN 43 H (9-16) mg/dL Creatinine 8.56 H* (0.5-1.4) mg/dL Estim Creat Clear Calc 9.1 Estimated GFR 6 Random Glucose 221 H (60-115) mg/dL Lactic Acid 3.0 H* (0.5-2.0) mmol/L Calcium 9.2 (8.4-10.2) mg/dL Total Bilirubin 0.6 (0.0-1.0) mg/dL AST 30 (5-37) U/L ALT 20 (0-40) U/L Alkaline Phosphatase 139 H (39-117) U/L Troponin I High Sens 59.2 H D (<3.5-35.0) ng/L Total Protein 7.8 (6.5-8.0) g/dL Albumin 4.0 (3.5-5.0) g/dL Urine Color RED Urine Appearance Turbid Urine pH 7.5 (5.0-9.0) Ur Specific [place] 1.020 (1.005-1.025) Urine Protein See Note (Neg-Trace) mg/dL Urine Glucose (UA) See Note (Negative) mg/dL Urine Ketones Negative (Negative) mg/dL Urine Blood Large (3+) H (Negative) Urine Nitrite See Note (Negative) Ur Leukocyte Esterase Large (3+) H (Negative) Urine RBC >20 H (0-2) /HPF Urine WBC 21-50 H (0-5) /HPF Ur Squamous Epith Cells 0-2 (0-2) /HPF Urine Bacteria 1+ (None Seen) Hyaline Casts 0-2 (0-2) /LPF Stool Occult Blood (NEGATIVE) Urine Opiates Screen Not Detected (Not Detect) Ur Buprenorphine Scrn Not Detected (Not Detect) ng/mL Ur Oxycodone Screen Not Detected (Not Detect) ng/mL Urine Methadone Screen Not Detected (Not Detect) ng/mL Urine Fentanyl Screen Not Detected (Not Detect) Ur Barbiturates Screen Not Detected (Not Detect) Ur Phencyclidine Scrn Not Detected (Not Detect) Ur Amphetamines Screen Not Detected (Not Detect) U Benzodiazepines Scrn Not Detected (Not Detect) Urine Cocaine Screen Not Detected (Not Detect) U Marijuana (THC) Screen Not Detected (Not Detect) Blood Type Antibody Screen Independent Historian Clinical information obtained from an independent historian. History obtained from or confirmed by: EMS EMS External Record Review External record reviewed: Inpatient record Chronic Conditions CRF on dyalisis Procedures Intubation Intubation Type:: Emergency Endotracheal Intubation Intubation Date:: 09/15/24 Intubation Time:: 11:14 Time out performed: Yes sedative: Etomidate paralytic: Rocuronium Laryngoscope: fiber optic video scope Assist Device Used: fiber optic device ET Tube Size: 7.5 ET Tube Uncuffed: No Tube Placement Confirmation: visualized tube passing through cords, equal breath sounds bilaterally and confirmation by capnometry Patient Tolerated Procedure: well Critical Care Time Critical Care Time Critical Care Time: Yes Total Critical Care Time: 90 Attestation: speaking with EMS prehospital and at arrival ,taking care of the pt Discharge Plan Discharge Clinical Impression: Chronic renal failure, stage 5 Respiratory failure Qualifiers: Chronicity: acute Respiratory failure complication: unspecified whether with hypoxia or hypercapnia Qualified Code(s): J96.00 - Acute respiratory failure, unspecified whether with hypoxia or hypercapnia Altered mental status Qualifiers: Altered mental status type: unspecified Qualified Code(s): R41.82 - Altered mental status, unspecified Patient Disposition: Admitted As Inpatient Interventions: Admission Worksheet (ED) Last Done: 09/15/24 13:12 Discharge Date/Time: 09/15/24 13:13
[2024-09-15 11:12] LABS: MANUAL DIFF FLAG NO
[2024-09-15 11:13] LABS: Basophils Absolute Auto 0.1 X10*3/uL (0.0-0.2); Basophils Percent Auto 0.7 % (0-2); Eosinophils Absolute Auto 0.2 X10*3/uL (0.0-0.4); Eosinophils Percent Auto 1.6 % (0-4); Hematocrit 32.1 % (42.0-52.0); Hemoglobin 10.1 g/dl (14.0-18.0); Imm Gran Abs Auto 0.24 X10*3/uL (0.00-0.03); Imm Gran Pct Auto 1.8 % (0.0-0.4); Lymphocytes Absolute Auto 1.3 X10*3/uL (1.2-4.9); Lymphocytes Percent Auto 9.1 % (20-40); Mean Corpuscular HGB Conc 31.5 g/dl (31.0-36.0); Mean Corpuscular Hemoglobin 33.3 pg (27.0-33.0); Mean Corpuscular Volume 105.9 fL (80.0-98.0); Mean Platelet Volume 10.6 fL (9.4-12.4); Monocytes Absolute Auto 0.7 X10*3/uL (0.1-1.2); Monocytes Percent Auto 5.4 % (2-11); Neutrophils Absolute Auto 11.1 x10*3/uL (2.0-8.3); Neutrophils Percent Auto 81.4 % (45-73); Platelet Count 288 X10*3/uL (160-400); Red Blood Count 3.03 X10*6/uL (4.60-5.80); Red Cell Distribution Width 16.2 % (11.0-16.0); White Blood Count 13.7 X10*3/uL (4.8-10.8)
[2024-09-15 11:18] LABS: OBS Int Ctl Valid YES; OBS1 NEGATIVE (NEGATIVE)
[2024-09-15 11:19] LABS: INTERNATIONAL NORM RATIO 1.1 (0.9-1.1); Prothrombin Time 13.2 SEC (10.9-12.4)
[2024-09-15] MEDS: propofoL 1,000 MG/100 ML VIAL 15.8 MG IVCONT (11:19)
[2024-09-15 11:21] LABS: VBG Base Excess -9.7 mmol/L; VBG HCO3 18 mmol/L (22-26); VBG pCO2 46 mmHg; VBG pH 7.19 (7.32-7.43); VBG pO2 57 mmHg
[2024-09-15 11:21] LABS: Venous Blood Gas Refer to POC result
--- NOTE | 2024-09-15 12:07 | PC.NURSE ---
pt arrived to room 5 from [facility] at 1050. pt had received 200cc IVF in field and EMS had started Norepi gtt at 0.01 mcg/kg/min for weight 105kg. per AIR DIRECTOR on scene. EMS initially called for difficulty breathing. when EMS arrived on scene pt was sitting upright in a wheelchair, GCS 5, initial SBP 40s. pt received dialysis, last received on sunday he did not go this morning. IO placed to R humeral head by EMS and he arrived with an OPA in and BVM. POC 270. uppon arrival to rm 5 plan to intubate as pt remained unresponsive, 1054 20mg Etomidate IVP given 1054 100mg Roccuronium IVP given 2 20G IV placed in pts R forearm and wrist POC 258 1056 ET tube placed 7.5, 26 at the lip, + color change and breath sounds, capnogrophy 43 1058 HR 127, 100% MV, 25RR, 131/62, ET 43 pt estimated to be 5'11, bed scale weight 87.8 kg 1103 NG tube placed by Dr. Gonzalez Vent settings: AC/VC 16, tidal vol 450, 100%, 5 Peep 1111: HR 118, 100% MV, 16R, 28 end tidal, 155/79 1112: Propofol gtt started at 30mcg/kg/min - temp sensing charles placed 1124: HR 111, 100%, 16 R, 37 end tidal, 149/71, 96.4 COre temp plan to bring pt to CT scan of head, chest and abd. pt with BRB in charles. 35 cc intial output.
[2024-09-15] MEDS: Etomidate 20 MG/10 ML VIAL IVPUSH (12:21)
[2024-09-15] MEDS: Rocuronium Bromide 50 MG/5 ML VIAL 100 MG IVPUSH (12:22)
[2024-09-15] MEDS: Albuterol Sulfate 7.5 MG, Albuterol Sulfate (0.083%) 2.5 MG 10 MG INHALE (12:22)
--- NOTE | 2024-09-15 12:24 | P.HPCC_ITS ---
History of Present Illness Date of Service: 09/15/24 Attending physician on admission: Tammy Dee Chief Complaint: Obtundation, Respiratory Failure Patient is a 64 Y M w/ COPD on 2-4L NC, psychiatric comorbidities, and ESRD on hemodialysis reportedly M/W/F, last dialysis session reportedly 09/12, presenting to emergency department on 09/15 w/ obtundation, found to be in acute respiratory failure, intubated; in ED, work-up demonstrating profound acidosis, admitted ICU for emergent dialysis Review of Systems 2 Review of Systems: Yes unobtainable due to endotracheal tube, Unobtainable due to mental condition and Unobtainable due to mental status PMFSH Past Medical History Medical History ESRD needing dialysis Chronic paranoid schizophrenia Paranoid ideation HTN (hypertension) End stage renal disease COVID-19 Social History Social History Household Members: Unknown / Unable to assess Household Members Other:: self Housing: Unknown / Unable to assess Do you presently have visiting nurse or other home services: Yes Unable to assess alcohol history related to: Unknown Alcohol intake: unknown Patient Tobacco Use Status: Former Tobacco user Tobacco use type: Cigarette e-Cigarette/Vaping Use: Never Used Second Hand Smoke Exposure: No Substance Use Type: Unknown Advance Directives: Yes Advance Directives on File: Yes Advance Directives Date on File: 08/31/20 Do you have a plan to hurt others: No Plan service: No Current occupational status: disabled Meds Allergies Allergy/AdvReac Type Severity Reaction Status Date / Time thioridazine [From MELLARIL] Allergy Severe Anaphylaxis, Verified 09/15/24 12:19 tongue swelling Active Medications: Current Medications Famotidine (Famotidine/Pf 20 Mg/2 Ml Vial) 20 mg IVPUSH BID ARJUN Heparin Sodium (Porcine) (Heparin Sodium,Porcine 5,000 Unit/Ml Vial) 5,000 unit SUBCUT Q8H ARJUN Hydromorphone HCl (Hydromorphone Hcl 1 Mg/Ml Syringe) 0.5 mg IVPUSH Q6H PRN; Protocol PRN Reason: Pain, Moderate(Pain Scale 4-6) Propofol (Diprivan) 1,000 mg in 100 mls @ 0 mls/hr IVCONT .Q0M ARJUN; Protocol Last Admin: 09/15/24 11:19 Dose: 30 mcg/kg/min, 15.8 mls/hr Calcium Gluconate (Calcium Gluconate) 1 gm in 50 mls @ 50 mls/hr IV ONCE ONE Stop: 09/15/24 13:08 Sodium Bicarbonate 150 meq/ (Dextrose) 1,000 mls @ 100 mls/hr IV .Q10H [facility] Home Medications ?Medication ?Instructions ?Recorded ?Confirmed ?Last Taken ?Type aspirin 81 mg tablet,delayed 81 mg PO DAILY 08/31/20 01/08/23 Unknown History release famotidine 20 mg tablet 20 mg PO BEDTIME 08/31/20 01/08/23 Unknown History furosemide 80 mg tablet 80 mg PO DAILY 08/31/20 01/08/23 Unknown History loperamide 2 mg capsule 2 mg PO TID PRN Diarrhea 08/31/20 01/08/23 Unknown History paliperidone 3 mg tablet,extended 3 mg PO DAILY 08/31/20 01/08/23 Unknown History release 24 hr perphenazine 4 mg tablet 4 mg PO DAILY 08/31/20 01/08/23 Unknown History vitamin B complex and vitamin C 1 cap PO DAILY 08/31/20 01/08/23 Unknown History no.20-folic acid 1 mg capsule ([place] Caps) cholecalciferol (vitamin D3) 125 125 mcg PO DAILY 01/13/21 01/08/23 Unknown History mcg (5,000 unit) tablet nicotine 14 mg/24 hr daily 1 patch transdermal DAILY PRN 01/13/21 01/08/23 Unknown History transdermal patch Nicotine Cravings amlodipine 5 mg tablet 5 mg PO DAILY 07/14/22 01/08/23 Unknown History midodrine 5 mg tablet 5 mg PO MOWEFR@0900,1800 07/14/22 01/08/23 Unknown History multivitamin 1 tab PO DAILY 07/14/22 01/08/23 Unknown History omega-3 fatty acids 1,000 mg 1 cap PO BID 07/14/22 01/08/23 Unknown History capsule arformoterol 15 mcg/2 mL solution 2 ml inhalation BID 11/15/23 Unknown History for nebulization (Brovana) ipratropium 0.5 mg-albuterol 3 mg 3 ml inhalation Q6-8H PRN 03/28/24 Unknown History (2.5 mg base)/3 mL nebulization soln fluticasone propionate 110 1 puff inhalation BID 09/15/24 Unknown History mcg/actuation HFA aerosol inhaler Physical Exam 2 Vital Signs: Vital Signs: Last Vital Signs Temp 97.9 F 09/15/24 11:53 Pulse 87 09/15/24 11:53 Resp 16 09/15/24 11:53 BP 123/59 L 09/15/24 11:53 Pulse Ox 100 09/15/24 11:53 O2 Del Method Mechanical Ventil ation 09/15/24 11:53 FiO2 100 09/15/24 11:23 BMI result Body Mass Index 27.0 Const: Other: intubated, sedated; some appreciable spontaneous movements; opens eyes to noxious stimulus General: no acute distress HEENT: Head: Yes normal to inspection, Yes normocephalic and Yes atraumatic Eyes: General: appearance normal, both eyes and all related structures Neck: Neck: Yes normal visual inspection, Yes full ROM, Yes no meningeal signs, Yes trachea midline and Yes supple Chest: Chest palpation & inspection: normal inspection of the chest Resp: Other: no appreciable rales, rhonchi, wheezing Effort & Inspection: normal respiratory effort Cardio: Rate: regular rate Rhythm: regular rhythm GI: Inspection: Yes normal to inspection, No Abdominal wall edema and No distended Palpation (GI): Soft to palpation, not firm, nontender, no guarding and not rigid Skin: General skin exam: no rashes or lesions noted Neuro: General: tone normal and no meningeal signs Extrem: General: Yes normal to inspection, Yes full ROM, Yes capillary refill normal and Yes no clubbing, cyanosis or edema Psych: Other: unable to assess Results Labs 09/15/24 11:04 09/15/24 12:09 Labs: Laboratory Results - last 24 hr 09/15/24 09/15/24 09/15/24 11:04 11:05 11:13 MCV 105.9 H MCH 33.3 H MCHC 31.5 RDW 16.2 H Plt Count 288 D MPV 10.6 Immature Gran % (Auto) 1.8 H Neut % (Auto) 81.4 H Lymph % (Auto) 9.1 L [place] % (Auto) 5.4 Eos % (Auto) 1.6 Baso % (Auto) 0.7 Lymph # (Auto) 1.3 [place] # (Auto) 0.7 Eos # (Auto) 0.2 Baso # (Auto) 0.1 Abs Immat Gran (auto) 0.24 H Absolute Neuts (auto) 11.1 H Absolute Nucleated RBC 0.000 Nucleated RBC % (auto) 0.0 PT 13.2 H INR 1.1 VBG pH 7.19 L* VBG pCO2 46 VBG pO2 57 VBG HCO3 18 L VBG O2 Saturation 78.0 VBG Base Excess -9.7 Stool Occult Blood NEGATIVE Blood Type O Positive Antibody Screen NEGATIVE Imaging Radiologist's Impressions: Impressions Chest X-Ray 09/15/24 11:00 IMPRESSION: Status post intubation ending 4 cm above nellie. Concerning acute on chronic airspace disease involving mostly the right lung. Electronically signed by: Phillip Saleem MD 09/15/2024 11:48 AM EST Assessment and Plan (1) Acidosis: Status: Acute (2) Respiratory failure: Qualifiers: Chronicity: acute Respiratory failure complication: hypoxia Qualified Code(s): J96.01 - Acute respiratory failure with hypoxia Status: Acute (3) COPD (chronic obstructive pulmonary disease): Status: Acute (4) Septic arthritis: Status: Acute Plan Patient is a 64 Y M w/ COPD on 2-4L NC, psychiatric comorbidities, and ESRD on hemodialysis M/W/F, last dialysis session reportedly 09/12, presenting to emergency department on 09/15 w/ obtundation, found to be in acute respiratory failure, intubated N: intubated, sedated w/ propofol gtt, wean as tolerated CV: no acute issues; to closely monitor R: acute respiratory failure, likely multifactorial d/t profound acidosis, COPD; intubated 09/15, wean as tolerated GI: no acute issues; NPO : ESRD on hemodialyis M/W/F, emergent hemodialysis 09/15, appreciate nephrology recommendations; CT A/P demonstrating R hydronephrosis, possible hemorrhage, appreciate urology recommendations H: no acute issues; to avoid chemical DVT prophylaxis in setting of hemouterer; mechanical devices ID: CT C c/f pneumonia and septic R shoulder and R hip; follow-up BCx 09/15; empiric vancomycin, zosyn, appreciate orthopedic surgery recommendations E: no acute issues; to monitor hypo-/hyper-glycemia P: no acute issues; paranoid schizophrenia
[2024-09-15 12:34] LABS: Appearance Urine Turbid; PH 7.5 (5.0-9.0); UMIC TRIGGER UACC YES; Urine Blood Large (3+) (Negative); Urine Ketones Negative (Negative)
[2024-09-15 12:35] LABS: Color Urine RED
[2024-09-15 12:37] LABS: Troponin-I High Sensitivity 59.2 ng/L (<3.5-35.0)
[2024-09-15 12:40] LABS: Alanine Aminotransferase 20 U/L (0-40); Alkaline Phosphatase 139 U/L (39-117); Anion Gap 24 (12-20); Aspartate Amino Transferase 30 U/L (5-37); Bilirubin Total 0.6 mg/dL (0.0-1.0); Blood Urea Nitrogen 43 mg/dL (9-16); Calcium 9.2 mg/dL (8.4-10.2); Carbon Dioxide 18 mmol/L (22-29); Chloride 100 mmol/L (96-108); Creatinine Clr Calc Pharmacy 9.1; Estimated Glomerular Filt Rate 6; Glucose Random 221 mg/dL (60-115); Potassium 5.4 mmol/L (3.3-5.1); Sodium 137 mmol/L (135-145); Total Protein 7.8 g/dL (6.5-8.0)
[2024-09-15 12:41] LABS: Leukocyte Esterase Urine Large (3+) (Negative)
[2024-09-15] MEDS: Sodium Bicarbonate 8.4% 50 MEQ/50 ML SYRINGE IVPUSH (12:41)
[2024-09-15 12:45] LABS: Bacteria Urine 1+ (None Seen); Hyaline Casts Urine 0-2 /LPF (0-2); RBC Urine >20 /HPF (0-2); Squamous Epithelial Cell Urine 0-2 /HPF (0-2); UACC Culture Trigger YES; WBC Urine 21-50 /HPF (0-5)
[2024-09-15 12:53] LABS: Amphetamine Screen Urine Not Detected (Not Detect); Barbiturates, Urine Not Detected (Not Detect); Benzodiazepines Screen Urine Not Detected (Not Detect); Buprenorphine Scr Not Detected (Not Detect); Cannabinoid Screen Urine Not Detected (Not Detect); Cocaine Screen Urine Not Detected (Not Detect); Fentanyl, urine Not Detected (Not Detect); Methadone Screen, Urine Not Detected (Not Detect); Opiate Screen Urine Not Detected (Not Detect); Oxycodone Screen Urine Not Detected (Not Detect); Phencyclidine Screen Urine Not Detected (Not Detect)
[2024-09-15] MEDS: Sodium Bicarbonate 8.4% 150 MEQ in Dextrose 5 % 850 ML 100 MEQ IV (13:13)
[2024-09-15] MEDS: Famotidine/PF 20 MG/2 ML VIAL IVPUSH ×2 (13:39→19:45)
[2024-09-15] MEDS: vancomycin/NS 2,000 MG/500 ML PLAST..BAG 250 MG IV (14:06)
[2024-09-15 14:14] LABS: Reflex Lactate? Lactic Acid Added
[2024-09-15] MEDS: Norepinephrine Bitartrate/D5W 8 MG/250 ML PLAST..BAG 8.23 MG IVCONT (14:19)
[2024-09-15 14:42] LABS: VBG Base Excess 2.5 mmol/L; VBG HCO3 23 mmol/L (22-26); VBG pCO2 25 mmHg; VBG pH 7.57 (7.32-7.43); VBG pO2 45 mmHg
[2024-09-15 14:43] LABS: Venous Blood Gas Refer to POC result
--- NOTE | 2024-09-15 14:49 | P.CONOP_ITS ---
History of Present Illness HPI Consult date: 09/15/24 Chief complaint: Respiratory failure Narrative: Patient is a 64 year old male with a PMH of end-stage renal disease on dialysis, COPD, and psychiatric comorbidities who was brought in to the ED by the paramedics because of altered mental status. On arrival the patient was reportedly unresponsive and in acute respiratory failure requiring intubation. While in the ED the patient was found to be in acidosis and the patient was admitted to the ICU for emergent dialysis. CT scan of the right shoulder and right hip were questionable for possible septic joint. Orthopedics was consulted for further evaluation and treatment. Review of Systems 2 Review of Systems: Yes unobtainable due to endotracheal tube PMFSH Past Medical History Medical History ESRD needing dialysis Chronic paranoid schizophrenia Paranoid ideation HTN (hypertension) End stage renal disease COVID-19 Social History Social History Household Members: Unknown / Unable to assess Household Members Other:: self Housing: Unknown / Unable to assess Do you presently have visiting nurse or other home services: Yes Unable to assess alcohol history related to: Unknown Alcohol intake: unknown Patient Tobacco Use Status: Former Tobacco user Tobacco use type: Cigarette e-Cigarette/Vaping Use: Never Used Second Hand Smoke Exposure: No Use of substances other than those prescribed or required for medical reasons: Unknown Substance Use Type: Unknown Currently Displaying Signs/Symptoms of Drug Intoxication Withdrawal: No Advance Directives: Yes Advance Directives on File: Yes Advance Directives Date on File: 08/31/20 Do you have a plan to hurt others: No Plan service: No Current occupational status: disabled Meds Allergies Allergy/AdvReac Type Severity Reaction Status Date / Time thioridazine [From MELLARIL] Allergy Severe Anaphylaxis, Verified 09/15/24 12:19 tongue swelling Active Medications: Current Medications Famotidine (Famotidine/Pf 20 Mg/2 Ml Vial) 20 mg IVPUSH BID ARJUN Last Admin: 09/15/24 13:39 Dose: 20 mg Hydromorphone HCl (Hydromorphone Hcl 1 Mg/Ml Syringe) 0.5 mg IVPUSH Q6H PRN; Protocol PRN Reason: Pain, Moderate(Pain Scale 4-6) Propofol (Diprivan) 1,000 mg in 100 mls @ 0 mls/hr IVCONT .Q0M ARJUN; Protocol Last Titration: 09/15/24 13:53 Dose: 40 mcg/kg/min, 21.07 mls/hr Sodium Bicarbonate 150 meq/ (Dextrose) 1,000 mls @ 100 mls/hr IV .Q10H ARJUN Last Admin: 09/15/24 13:13 Dose: 100 mls/hr Norepinephrine Bitartrate (Levophed) 8 mg in 250 mls @ 0 mls/hr IVCONT .Q0M ARJUN; Protocol Last Admin: 09/15/24 14:19 Dose: 0.05 mcg/kg/min, 8.23 mls/hr Piperacillin Sod/Tazobactam (Sod 4.5 gm/ Sodium Chloride) 50 mls @ 100 mls/hr IV Q12H ARJUN Last Infusion: 09/15/24 14:24 Dose: Infused Vancomycin HCl (Vancomycin/Ns) 2,000 mg in 500 mls @ 250 mls/hr IV ONCE ONE Stop: 09/15/24 15:14 Last Admin: 09/15/24 14:06 Dose: 250 mls/hr Vancomycin HCl 500 mg/ Sodium (Chloride) 110 mls @ 110 mls/hr IV ONCE ONE Stop: 09/15/24 15:29 Pharmacy Consult (Consult Rx Vancomycin Dosing) 1 each MISCELLANE DAILY PRN PRN Reason: Consult order Home Medications ?Medication ?Instructions ?Recorded ?Confirmed ?Last Taken ?Type aspirin 81 mg tablet,delayed 81 mg PO DAILY 08/31/20 09/15/24 Unknown History release famotidine 20 mg tablet 20 mg PO BEDTIME 08/31/20 09/15/24 Unknown History furosemide 80 mg tablet 80 mg PO DAILY 08/31/20 09/15/24 Unknown History loperamide 2 mg capsule 2 mg PO TID PRN Diarrhea 08/31/20 09/15/24 Unknown History paliperidone 3 mg tablet,extended 3 mg PO DAILY 08/31/20 09/15/24 Unknown History release 24 hr perphenazine 4 mg tablet 4 mg PO BID 08/31/20 09/15/24 Unknown History vitamin B complex and vitamin C 1 cap PO DAILY 08/31/20 09/15/24 Unknown History no.20-folic acid 1 mg capsule (Eddy Caps) cholecalciferol (vitamin D3) 125 125 mcg PO DAILY 01/13/21 09/15/24 Unknown History mcg (5,000 unit) tablet nicotine 14 mg/24 hr daily 1 patch transdermal DAILY PRN 01/13/21 09/15/24 Unknown History transdermal patch Nicotine Cravings amlodipine 5 mg tablet 5 mg PO DAILY 07/14/22 09/15/24 Unknown History midodrine 5 mg tablet 5 mg PO MOWEFR@0900,1800 07/14/22 09/15/24 Unknown History multivitamin 1 tab PO DAILY 07/14/22 09/15/24 Unknown History omega-3 fatty acids 1,000 mg 1 cap PO BID 07/14/22 09/15/24 Unknown History capsule metoprolol tartrate 50 mg tablet 25 mg PO BID 09/15/24 09/15/24 Unknown History tiotropium bromide 1.25 2 puff inhalation DAILY 09/15/24 09/15/24 Unknown History mcg/actuation mist for inhalation (Spiriva Respimat) Physical Exam 2 Vital Signs: Vital Signs: Last Vital Signs Temp 97.5 F 09/15/24 14:00 Pulse 73 09/15/24 14:19 Resp 16 09/15/24 14:00 BP 74/38 L 09/15/24 14:19 Pulse Ox 89 L 09/15/24 14:00 O2 Del Method Mechanical Ventil ation 09/15/24 14:00 FiO2 40 09/15/24 14:00 BMI result Body Mass Index 26.5 Extrem: Other: Right upper extremity puncture wound from IO line noted on the lateral aspect of the shoulder with the rotator cuff attachment lies. There is no surrounding erythema or drainage. No ecchymosis. Able to perform range of motion without any significant limitations or mechanical blockage. Right hip normal to inspection no ecchymosis erythema or edema. No areas of fluctuance or obvious areas of abscess formation. Able to perform range of motion without any limitations or mechanical blockage. Results Labs 09/16/24 05:28 09/16/24 05:28 Labs: Abnormal lab results 09/15/24 09/15/24 09/15/24 Range/Units 11:04 11:13 11:54 WBC 13.7 H (4.8-10.8) X10*3/uL RBC 3.03 L (4.60-5.80) X10*6/uL Hgb 10.1 L D (14.0-18.0) g/dl Hct 32.1 L (42.0-52.0) % MCV 105.9 H (80.0-98.0) fL MCH 33.3 H (27.0-33.0) pg RDW 16.2 H (11.0-16.0) % Immature Gran % (Auto) 1.8 H (0.0-0.4) % Neut % (Auto) 81.4 H (45-73) % Lymph % (Auto) 9.1 L (20-40) % Abs Immat Gran (auto) 0.24 H (0.00-0.03) X10*3/uL Absolute Neuts (auto) 11.1 H (2.0-8.3) x10*3/uL PT 13.2 H (10.9-12.4) SEC VBG pH 7.19 L* (7.32-7.43) VBG HCO3 18 L (22-26) mmol/L Potassium (3.3-5.1) mmol/L Carbon Dioxide (22-29) mmol/L Anion Gap (12-20) BUN (9-16) mg/dL Creatinine (0.5-1.4) mg/dL Random Glucose (60-115) mg/dL Lactic Acid (0.5-2.0) mmol/L Alkaline Phosphatase (39-117) U/L Troponin I High Sens (<3.5-35.0) ng/L Urine Blood Large (3+) H (Negative) Ur Leukocyte Esterase Large (3+) H (Negative) Urine RBC >20 H (0-2) /HPF Urine WBC 21-50 H (0-5) /HPF 09/15/24 09/15/24 09/15/24 Range/Units 12:09 12:10 14:31 WBC (4.8-10.8) X10*3/uL RBC (4.60-5.80) X10*6/uL Hgb (14.0-18.0) g/dl Hct (42.0-52.0) % MCV (80.0-98.0) fL MCH (27.0-33.0) pg RDW (11.0-16.0) % Immature Gran % (Auto) (0.0-0.4) % Neut % (Auto) (45-73) % Lymph % (Auto) (20-40) % Abs Immat Gran (auto) (0.00-0.03) X10*3/uL Absolute Neuts (auto) (2.0-8.3) x10*3/uL PT (10.9-12.4) SEC VBG pH 7.57 H (7.32-7.43) VBG HCO3 (22-26) mmol/L Potassium 5.4 H (3.3-5.1) mmol/L Carbon Dioxide 18 L (22-29) mmol/L Anion Gap 24 H (12-20) BUN 43 H (9-16) mg/dL Creatinine 8.56 H* (0.5-1.4) mg/dL Random Glucose 221 H (60-115) mg/dL Lactic Acid 3.0 H* (0.5-2.0) mmol/L Alkaline Phosphatase 139 H (39-117) U/L Troponin I High Sens 59.2 H D (<3.5-35.0) ng/L Urine Blood (Negative) Ur Leukocyte Esterase (Negative) Urine RBC (0-2) /HPF Urine WBC (0-5) /HPF H & H 09/15/24 Range/Units 11:04 Hgb 10.1 L D (14.0-18.0) g/dl Hct 32.1 L (42.0-52.0) % Coagulation 09/15/24 Range/Units 11:04 INR 1.1 (0.9-1.1) All other labs normal. Assessment and Plan (1) Acidosis: Status: Acute (2) Altered mental status: Qualifiers: Altered mental status type: unspecified Qualified Code(s): R41.82 - Altered mental status, unspecified Status: Acute (3) Respiratory failure: Qualifiers: Chronicity: acute Respiratory failure complication: hypoxia Qualified Code(s): J96.01 - Acute respiratory failure with hypoxia Status: Acute (4) Acute and chronic respiratory failure with hypoxia: Status: Acute Plan I discussed the case with Dr. Vasquez and reviewed the imaging. Right shoulder: Fluid collection seen on CT scan likely iatrogenic from IO line placement. No evidence of compartment syndrome. Right hip fluid collection adjacent to the IM hardware likely inflammatory not sepsis. No evidence of hardware failure. No additional orthopedic intervention is needed at this time. Procedures Date of Service Date of Service: 09/16/24
[2024-09-15 15:00] LABS: ~Lactic Acid-LAB USE ONLY 1.6 mmol/L (0.5-2.0)
[2024-09-15 15:17] LABS: Troponin-I High Sensitivity 177.7 ng/L (<3.5-35.0)
--- NOTE | 2024-09-15 15:35 | MHC.CM.PN ---
Pt presently in ICU and unable to participate in CM assessment: Spoke w/HCP Tyson who suggested CM contact [facility] at [phone] as pt has services (including VNA through [facility]). Call placed to Hannah at [facility]: she states pt resides in a [facility] assisted residence but didn't have specific information on pt. Hannah states she will have pt's VNA RN contact for more detailed hx and information. Hannah is unsure where pt has HD but did state it was on [facility], [address], [address]. CM to follow up with VNA or pt if he is able.
--- OUTSIDE RECORDS SUMMARY | 2024-09-15 16:08 | XMS_ITS | Encounter Summary ---
Author Organization [facility] Address [address] [place] [phone] Phone Care Team Providers Care Dolphin Researcher Name Role Phone Sal Valencia MD Primary Care Provider [phone] Encounter Details Date Type Department Care Team ([facility] st Contact Info) Description 08/22/2024 Treatment [facility] [address] [place] [id number] Eulalia Herzog MD [address] [place] [phone] Social History Tobacco Use Types Packs/Day Years Used Date Smoking Tobacco: Every Day Cigarettes Alcohol Use Standard Drinks/Week Comments No 0 (1 standard drink = 0.6 oz pur e alcohol) Sex and Gender Information Value Date Recorded Sex Assigned at Not on file Legal Sex Male 4:52 PM EST Gender Identity Not on file Sexual Orientation Not on file documented as of this encounter Miscellaneous Notes * Dialysis Note - Eulalia Herzog MD - 08/22/2024 12:00 AM EST Patient: Narinder Lara : 1960 Note Type: Dialysis Rounds-Comp Service Date: 08/22/2024 This patient was personally seen for a complete visit as part of routine monthly dialysis care for end stage renal disease. Attending Reconciliation Manager: EULALIA HERZOG MD Dialysis Location: [facility] Schedule: Shift: 2 OVERVIEW Patient is stable. ADEQUACY ASSESSMENT Kt/V, Natural Log 1.74 (07/23/24) 1.58 (06/25/24) UREA REDUCTION RATIO (%) 78 (07/23/24) 75 (06/25/24) BUN 40 (07/23/24) 36 (06/25/24) BUN Post Dialysis 9 (07/23/24) 9 (06/25/24) Creatinine 7.00 (07/23/24) 7.31 (06/25/24) Bicarbonate (CO2) 25 (07/23/24) 26 (06/25/24) Sodium 137 (07/23/24) 136 (06/25/24) ANEMIA ASSESSMENT Hgb 10.3 (08/06/24) 10.7 (07/30/24) 10.0 (07/23/24) Iron Saturation (TSat) 28 (07/23/24) 48 (06/25/24) Ferritin 1,344 (06/25/24) Iron 51 (07/23/24) 96 (06/25/24) TIBC 182 (07/23/24) 200 (06/25/24) MCV 109.4 (07/23/24) 110.0 (06/25/24) Platelets 201 (07/23/24) 202 (06/25/24) BMM ASSESSMENT Calcium, Adjusted Total 9.0 12/4/24 9.3 06/25/24 Calcium 9.0 07/23/24 9.3 06/25/24 Phosphorus, Serum 7.4 08/17/24 6.7 08/06/24 7.1 07/23/24 Ca*PO4 63.9 07/23/24 68.8 06/25/24 Magnesium 2.2 07/23/24 2.1 06/25/24 Alkaline Phosphatase 134 07/23/24 132 06/25/24 NUTRITION ASSESSMENT Albumin 4.2 07/23/24 4.1 06/25/24 Potassium 4.9 08/17/24 4.8 08/10/24 5.3 08/06/24 ADDITIONAL LABS White Blood Cells 6.5 (07/23/24) 5.8 (06/25/24) ADDITIONAL COMMENT COMMENTS: 08/19/24 stable 08/22/24 same issues 04/23/24 stable 04/28/24 no new issues 05/05/24 stable 05/12/24 no need issues 05/26/24 stable 06/11/24 no new issues 06/23/24 stable 06/30/24 doing ok 07/07/24 stable 07/15/24 same 07/21/24 doing ok 07/28/24 stable 08/04/24 same 08/12/24 no New issues Signed by: EULALIA HERZOG MD on 08/23/2024 at 03:21:52 AM Transcribed by: EULALIA HERZOG MD on 08/23/2024 at 03:21:52 AM documented in this encounter Plan of Treatment Not on file documented as of this encounter Visit Diagnoses Not on filedocumented in this encounter Care Teams Dolphin Researcher Relationship Specialty Start Date End Date Sal Valencia MD [address] [place] PCP - General 08/30/20 documented as of this encounter
--- OUTSIDE RECORDS SUMMARY | 2024-09-15 16:08 | XMS_ITS | Clinical Summary ---
Author Organization [facility] Address [address] [address] Phone Care Team Providers Care Surgical Specialist Name Role Phone Sal Valencia MD Primary Care Provider [phone] Medications amLODIPine (NORVASC) 5 MG tablet TAKE 1 TABLET BY MOUTH EVERY DAY 30 tablet 3 08/22/2022 Active Auryxia 1 GM 210 MG(Fe) tablet TAKE 3 TABLETS BY MOUTH THREE TIMES A DAY WITH MEALS 270 tablet 13 01/23/2023 Active [place]-3 Fatty Acids (Super [place]-3) 1000 MG capsule TAKE 1 CAPSULE BY MOUTH TWICE A DAY 60 capsule 3 02/15/2023 Active midodrine (PROAMATINE) 5 MG tablet TAKE 1 TABLET BY MOUTH BEFORE DIALYSIS AND 1 TAB DURING DIALYSIS (MON,WED,FRI) 24 tablet 11 01/10/2024 Active Encounters Date Type Department Care Team Description 09/10/2024 Treatment [facility] [address] [place] [phone] John Leger MD 08/22/2024 Treatment [facility] [address] [place] [phone] John Leger MD 08/19/2024 Treatment [facility] [address] [phone] John Leger MD 08/12/2024 Treatment [facility] [address] [phone] John Leger MD 08/04/2024 Treatment [facility] [address] [phone] John Leger MD 07/28/2024 Treatment [facility] [address] [phone] John Leger MD 07/21/2024 Treatment [facility] [address] [phone] John Leger MD 07/15/2024 Treatment [facility] [address] [phone] John Leger MD 07/07/2024 Treatment [facility] [address] [phone] John Leger MD 06/30/2024 Treatment [facility] [address] [phone] John Leger MD 06/23/2024 Treatment [facility] [address] [phone] John Leger MD 06/18/2024 Orders Only [facility] [address] [phone] John Leger MD from Last 3 Months Family History Medical History Relation Comments Diabetes Mother Hypertension Mother Relation Status Comments Father Mother Social History Tobacco Use Types Packs/Day Years Used Date Smoking Tobacco: Every Day Cigarettes Alcohol Use Standard Drinks/Week Comments No 0 (1 standard drink = 0.6 oz pur e alcohol) Sex and Gender Information Value Date Recorded Sex Assigned at Not on file Legal Sex Male 4:52 PM EST Gender Identity Not on file Sexual Orientation Not on file Last Filed Vital Signs Vital Sign Reading Time Taken Comments Blood Pressure 136/60 08/27/2019 12:00 PM EST Pulse 89 08/27/2019 12:00 PM EST Temperature - - Respiratory Rate - - Oxygen Saturation - - Inhaled Oxygen Concentration - - Weight 75.2 kg (165 lb 12.8 oz) 020 12:00 PM EST Height 190.5 cm (6' 3 ) 08/27/2019 12:0 0 PM EST Body Mass Index 20.72 08/27/2019 12:00 PM EST Plan of Treatment Health Maintenance Due Date Last Done Comments Pneumococcal Vaccine: 65+ Years (1 of 2 - PCV) 965 Pneumococcal Vaccine: Pediat rics (0 to 5 Years) and At-Risk Patients (6 to 64 Years) (1 of 2 - PCV) 1965 Hepatitis B Vaccine (1 of 5 - Risk Dialysis 4-dose series) 1979 Colorectal Cancer Screening: Annual FOBT 2008 Colorectal Cancer Screening: Colonoscopy 2008 Colorectal Cancer Screening: Sigmoidoscopy 2008 Influenza Vaccine (#1) 2024 Procedures Procedure Name Priority Date/Time Associated Diagnosis Comments POTASSIUM Routine 09/10/2024 3:00 AM EST PHOSPHATE ( PHOSPHORUS) Routine 09/10/2024 3:00 AM EST LIH (HC) Routine 09/10/2024 3:00 AM EST HEMOGLOBIN AND HEMATOCRIT, BLOOD Routine 09/10/2024 3:00 AM EST LIH (HC) Routine 09/03/2024 3:00 AM EST POTASSIUM Routine 09/03/2024 3:00 AM EST ALUMINUM LEVEL Routine 08/27/2024 3:00 AM EST HEPATITIS C ABS W/REFLEX RNA DETECTR Routine 08/27/2024 3:00 AM EST CONFIRMATION TEST HCV Routine 08/27/2024 3:00 AM EST VITAMIN D 25 HYDROXY Routine 08/27/2024 3:00 AM EST HEPATITIS B SURFACE ANTIGEN W/REFL CONFIRM Routine 08/27/2024 3:00 AM EST FERRITIN Routine 08/27/2024 3:00 AM EST HEPATITIS B SURFACE ANTIBODY QUANT Routine 08/27/2024 3:00 AM EST PTH, INTACT Routine 08/27/2024 3:00 AM EST URIC ACID Routine 08/27/2024 3:00 AM EST PROTEIN, TOTAL, SERUM Routine 08/27/2024 3:00 AM EST TRANSFERRIN SATURATION Routine 3:00 AM EST MAGNESIUM Routine 08/27/2024 3:00 AM EST KT/V NATURAL LOG, URR (HC) Routine 08/27/2024 3:00 AM EST ELECTROLYTE PANEL Routine 08/27/2024 3:0 0 AM EST LIPID PANEL Routine 08/27/2024 3:00 AM EST LIH (HC) Routine 08/27/2024 3:00 AM EST LACTATE DEHYDROGENASE Routine 08/27/2024 3:00 AM EST GLUCOSE, RANDOM Routine 08/27/2024 3:00 AM EST BILIRUBIN, TOTAL Routine 08/27/2024 3:00 AM EST CREATININE, SERUM Routine 08/27/2024 3:0 0 AM EST AST Routine 08/27/2024 3:00 AM EST CALCIUM PHOSPHORUS PRODUCT, ADJUSTED (HC) Routine 08/27/2024 3:00 AM EST ALT Routine 08/27/2024 3:00 AM EST ALKALINE PHOSPHATASE Routine 08/27/2024 3:00 AM EST CBC AND DIFFERENTIAL Routine 08/27/2024 3:00 AM EST PHOSPHATE ( PHOSPHORUS) Routine 08/17/2024 3:00 AM EST LIH (HC) Routine 08/17/2024 3:00 AM EST POTASSIUM Routine 08/17/2024 3:00 AM EST POTASSIUM Routine 08/10/2024 3:00 AM EST LIH (HC) Routine 08/10/2024 3:00 AM EST HEMOGLOBIN AND HEMATOCRIT, BLOOD Routine 08/06/2024 3:00 AM EST LIH (HC) Routine 08/06/2024 3:00 AM EST POTASSIUM Routine 08/06/2024 3:00 AM EST PHOSPHATE ( PHOSPHORUS) Routine 08/06/2024 3:00 AM EST HEMOGLOBIN AND HEMATOCRIT, BLOOD Routine 07/30/2024 3:00 AM EST LIH (HC) Routine 07/30/2024 3:00 AM EST POTASSIUM Routine 07/30/2024 3:00 AM EST TRANSFERRIN SATURATION Routine 3:00 AM EST PROTEIN, TOTAL, SERUM Routine 07/23/2024 3:00 AM EST LIH (HC) Routine 07/23/2024 3:00 AM EST ELECTROLYTE PANEL Routine 07/23/2024 3:0 0 AM EST MAGNESIUM Routine 07/23/2024 3:00 AM EST GLUCOSE, RANDOM Routine 07/23/2024 3:00 AM EST LACTATE DEHYDROGENASE Routine 07/23/2024 3:00 AM EST CREATININE, SERUM Routine 07/23/2024 3:0 0 AM EST BILIRUBIN, TOTAL Routine 07/23/2024 3:00 AM EST AST Routine 07/23/2024 3:00 AM EST CALCIUM PHOSPHORUS PRODUCT, ADJUSTED (HC) Routine 07/23/2024 3:00 AM EST ALT Routine 07/23/2024 3:00 AM EST ALKALINE PHOSPHATASE Routine 07/23/2024 3:00 AM EST HEPATITIS B SURFACE ANTIGEN W/REFL CONFIRM Routine 07/23/2024 3:00 AM EST CBC AND DIFFERENTIAL Routine 07/23/2024 3:00 AM EST KT/V NATURAL LOG, URR (HC) Routine 07/23/2024 3:00 AM EST LIH (HC) Routine 07/13/2024 3:00 AM EST POTASSIUM Routine 07/13/2024 3:00 AM EST HEMOGLOBIN AND HEMATOCRIT, BLOOD Routine 07/13/2024 3:00 AM EST LIH (HC) Routine 07/09/2024 3:00 AM EST POTASSIUM Routine 07/09/2024 3:00 AM EST HEMOGLOBIN AND HEMATOCRIT, BLOOD Routine 07/09/2024 3:00 AM EST LIH (HC) Routine 07/02/2024 3:00 AM EST POTASSIUM Routine 07/02/2024 3:00 AM EST HEMOGLOBIN AND HEMATOCRIT, BLOOD Routine 07/02/2024 3:00 AM EST PHOSPHATE ( PHOSPHORUS) Routine 06/30/2024 3:00 AM EST LIH (HC) Routine 06/30/2024 3:00 AM EST FERRITIN Routine 06/25/2024 3:00 AM EST HEPATITIS B SURFACE ANTIGEN W/REFL CONFIRM Routine 06/25/2024 3:00 AM EST TRANSFERRIN SATURATION Routine 3:00 AM EST MAGNESIUM Routine 06/25/2024 3:00 AM EST PROTEIN, TOTAL, SERUM Routine 06/25/2024 3:00 AM EST LIH (HC) Routine 06/25/2024 3:00 AM EST ELECTROLYTE PANEL Routine 06/25/2024 3:0 0 AM EST LACTATE DEHYDROGENASE Routine 06/25/2024 3:00 AM EST GLUCOSE, RANDOM Routine 06/25/2024 3:00 AM EST CREATININE, SERUM Routine 06/25/2024 3:0 0 AM EST BILIRUBIN, TOTAL Routine 06/25/2024 3:00 AM EST ALT Routine 06/25/2024 3:00 AM EST AST Routine 06/25/2024 3:00 AM EST ALKALINE PHOSPHATASE Routine 06/25/2024 3:00 AM EST CALCIUM PHOSPHORUS PRODUCT, ADJUSTED (HC) Routine 06/25/2024 3:00 AM EST KT/V NATURAL LOG, URR (HC) Routine 06/25/2024 3:00 AM EST CBC AND DIFFERENTIAL Routine 06/25/2024 3:00 AM EST LIH (HC) Routine 06/23/2024 3:00 AM EST POTASSIUM Routine 06/23/2024 3:00 AM EST HEMOGLOBIN AND HEMATOCRIT, BLOOD Routine 06/18/2024 3:00 AM EDT LIH (HC) Routine 06/18/2024 3:00 AM EDT POTASSIUM Routine 06/18/2024 3:00 AM EDT from Last 3 Months Results * LIH (09/10/2024 3:00 AM EST) Only the most recent of15 resultswithin the time period is included. Lipemia Normal Normal [facility] Icterus Normal Normal [facility] Hemolysis Normal Normal [facility] 09/10/2024 3:00 AM EST 09/11/2024 12:51 PM EST us John Leger MD LAB [id number] SOLICITED RESULTS Final Result [facility] [address] [place] [address] * (ABNORMAL) Hemoglobin and hematocrit (09/10/2024 3:00 AM EST) Only the most recent of7 resultswithin the time period is included. Hgb 10.1(L) 13.7 - 17.5 g/dL [facility] Hematocrit 32.5(L) 40.1 - 51.0 % [facility] Hemoglobin x 3 30.3(L) 41.1 - 52.5 g/dL [facility] 09/10/2024 3:00 AM EST 09/11/2024 12:39 PM EST John Leger MD LAB BLOOD ORDERABLES Final Re sult Performing Organization Address [facility] de Phone Number [facility] [address] [place] [address] * Potassium (09/10/2024 3:00 AM EST) Only the most recent of11 resultswithin the time period is included. Potassium 4.6 3.4 - 5.0 mEq/L [facility] 09/10/2024 3:00 AM EST 09/11/2024 12:51 PM EST John Leger MD LAB BLOOD ORDERABLES Final Re sult Performing Organization Address [facility] de Phone Number [facility] [address] [place] [address] * (ABNORMAL) Phosphorus (09/10/2024 3:00 AM EST) Only the most recent of4 resultswithin the time period is included. Phosphorus, Serum 5.3(H) 2.5 - 5.0 mg/dL [facility] 09/10/2024 3:00 AM EST 09/11/2024 12:51 PM EST John Leger MD LAB BLOOD ORDERABLES Final Re sult Performing Organization Address [facility] de Phone Number [facility] [address] [place] [address] * Confirmation Test HCV (08/27/2024 3:00 AM EST) Hep C Ab Confirmation Not needed [facility] 08/27/2024 3:00 AM EST 08/28/2024 1:04 PM EST John Leger MD LAB BLOOD ORDERABLES Final Re sult Performing Organization Address [facility]/ZIP Co de Phone Number [facility] [address] [place] [address] * (ABNORMAL) Kt/V Natural Log, URR (08/27/2024 3:00 AM EST) Only the most recent of3 resultswithin the time period is included. BUN 33(H) 7 - 25 mg/dL [facility] Treatment Time 241 min [facility] Pre-Weight, lb 89.1 kg [facility] Post-Weight, lb 86.1 kg [facility] Ultrafiltration Rate 9 <=13 mL/kg/hr [facility] Comment: Recommend achieving Ultrafiltration Rate (UFR) <=10 mL/kg/hr References: Cristofer LIANG et al. Kidney Int. 2010; 79(2):250-257 BUN Post Dialysis 7 7 - 25 mg/dL [facility] UREA REDUCTION RATIO (%) 79 >=65 % [facility] Kt/V Natural Log 1.83 >=1.2 [facility] 08/27/2024 3:00 AM EST 08/28/2024 1:20 PM EST John Leger MD LAB [id number] SOLICITED RESULTS Final Result Performing Organization Address [facility] de Phone Number [facility] [address] [place] [address] * (ABNORMAL) Calcium Phosphorus Product, Adjusted (08/27/2024 3:00 AM EST) Only the most recent of3 resultswithin the time period is included. Albumin 4.3 3.6 - 5.4 g/dL [facility] Calcium 9.3 8.6 - 10.3 mg/dL [facility] Phosphorus, Serum 7.1(H) 2.5 - 5.0 mg/dL [facility] Ca*PO4 66.0(A) <55.0 mg2/dL2 [facility] Calcium, Adjusted Total 9.3 8.6 - 10.3 mg/dL [facility] CA*PO4 CORRCTD 66.0(A) <55.0 mg2/dL2 [facility] 08/27/2024 3:00 AM EST 08/28/2024 1:20 PM EST us John Leger MD LAB [id number] SOLICITED RESULTS Final Result Performing Organization Address [facility] de Phone Number [facility] [address] [place] [address] * HEPATITIS C ABS W/REFLEX RNA DETECTR (08/27/2024 3:00 AM EST) Pathologist [facility] Hep C Virus Ab Non-Reacti ve Non-Reacti ve [facility] 08/27/2024 3:00 AM EST 08/28/2024 1:20 PM EST us John Leger MD LAB [id number] SOLICITED RESULTS Final Result Performing Organization Address [facility] de Phone Number [facility] [address] [place] [address] * Hepatitis B Surface Ag w/Reflex Confirmation (08/27/2024 3:00 AM EST) Only the most recent of3 resultswithin the time period is included. Pathologist [facility] Hep B Surface Antigen Negative Negative [facility] 08/27/2024 3:00 AM EST 08/28/2024 1:20 PM EST us John Leger MD LAB BLOOD ORDERABLES Final Re sult Performing Organization Address [facility] de Phone Number [facility] [address] [place] [address] * (ABNORMAL) TSAT (08/27/2024 3:00 AM EST) Only the most recent of3 resultswithin the time period is included. Pathologist [facility] Iron 41(L) 65 - 175 ug/dL [facility] Transferrin 160(L) 215 - 365 mg/dL [facility] TIBC 224 211 - 406 ug/dL [facility] Iron Saturation (TSat) 18(L) 22 - 52 % [facility] 08/27/2024 3:00 AM EST 08/28/2024 1:20 PM EST John Leger MD LAB BLOOD ORDERABLES Final Re sult Performing Organization Address [facility] de Phone Number [facility] [address] [place] [address] * Aluminum level (08/27/2024 3:00 AM EST) Aluminum 6 1 - 20 ug/L [facility] 08/27/2024 3:00 AM EST 08/28/2024 1:21 PM EST John Leger MD LAB BLOOD ORDERABLES Final Re sult Performing Organization Address [facility] de Phone Number [facility] [address] [place] [address] * Vitamin D 25 Hydroxy (08/27/2024 3:00 AM EST) Pathologist [facility] Vitamin D, 25-Hydroxy 43 30 - 100 ng/mL [facility] Comment: Status ? Adult ?? Pediatric Deficient: ? <20 ? <15 Insufficient: ??20-29 ?? 15-19 Sufficient: ?30-100 ??20-100 08/27/2024 3:00 AM EST 08/28/2024 1:20 PM EST John Leger MD LAB BLOOD ORDERABLES Final Re sult Performing Organization Address [facility] de Phone Number [facility] [address] [place] [address] * (ABNORMAL) Hepatitis B Surface Antibody (08/27/2024 3:00 AM EST) Pathologist [facility] Hep B Surface Antibody <4(A) mIU/mL [facility] Comment: Interpretation: <10: No Immunity >=10: Probable Immunity 08/27/2024 3:00 AM EST 08/28/2024 1:20 PM EST John Leger MD LAB BLOOD ORDERABLES Final Re sult Performing Organization Address [facility]/ZIP Co de Phone Number [facility] [address] [place] [address] * (ABNORMAL) CBC and Differential (08/27/2024 3:00 AM EST) Only the most recent of3 resultswithin the time period is included. DIFFERENTIAL MANUAL, 2 Not Indicated [facility] White Blood Cells 6.8 4.2 - 9.1 K/uL [facility] RBC 2.96(L) 4.63 - 6.08 M/uL [facility] Hgb 9.8(L) 13.7 - 17.5 g/dL [facility] Hemoglobin x 3 29.4(L) 41.1 - 52.5 g/dL [facility] Hematocrit 31.4(L) 40.1 - 51.0 % [facility] MCV 106.1(H) 79.0 - 92.2 fL [facility] MCH 33.1(H) 25.7 - 32.2 pg [facility] MCHC 31.2(L) 32.3 - 36.5 g/dL [facility] Platelets 223 163 - 337 K/uL [facility] RDW 15.3(H) 11.6 - 14.4 % [facility] Neutrophils Relative 76.3(H) 34.0 - 67.9 % [facility] Lymphocytes Relative 10.3(L) 21.8 - 53.1 % [facility] Monocytes 9.7 5.3 - 12.2 % [facility] Eosinophils Relative 1.5 0.8 - 7.0 % [facility] Basophils Relative 0.9 0.2 - 1.2 % [facility] Immature Granulocytes 1.3(H) 0.0 - 1.0 % [facility] 08/27/2024 3:00 AM EST 08/28/2024 1:04 PM EST John Leger MD LAB BLOOD ORDERABLES Final Re sult Performing Organization Address [facility] Co de Phone Number [facility] [address] [place] [address] * Uric Acid (08/27/2024 3:00 AM EST) Uric Acid 6.2 4.4 - 7.6 mg/dL [facility] 08/27/2024 3:00 AM EST 08/28/2024 1:20 PM EST John Leger MD LAB BLOOD ORDERABLES Final Re sult Performing Organization Address [facility] de Phone Number [facility] [address] [place] [address] * ALT (08/27/2024 3:00 AM EST) Only the most recent of3 resultswithin the time period is included. ALT (SGPT) 17 10 - 49 U/L [facility] 08/27/2024 3:00 AM EST 08/28/2024 1:20 PM EST John Leger MD LAB BLOOD ORDERABLES Final Re sult Performing Organization Address [facility] de Phone Number [facility] [address] [place] [address] * AST (08/27/2024 3:00 AM EST) Only the most recent of3 resultswithin the time period is included. AST (SGOT) 15 <34 U/L [facility] 08/27/2024 3:00 AM EST 08/28/2024 1:20 PM EST John Leger MD LAB BLOOD ORDERABLES Final Re sult Performing Organization Address [facility] de Phone Number [facility] [address] [place] [address] * Protein, total (08/27/2024 3:00 AM EST) Only the most recent of3 resultswithin the time period is included. Total Protein 6.9 6.4 - 8.9 g/dL [facility] 08/27/2024 3:00 AM EST 08/28/2024 1:20 PM EST John Leger MD LAB BLOOD ORDERABLES Final Re sult Performing Organization Address [facility] de Phone Number [facility] [address] [place] [address] * (ABNORMAL) Alkaline phosphatase (08/27/2024 3:00 AM EST) Only the most recent of3 resultswithin the time period is included. Alkaline Phosphatase 135(H) 46 - 116 U/L [facility] 08/27/2024 3:00 AM EST 08/28/2024 1:20 PM EST John Leger MD LAB BLOOD ORDERABLES Final Re sult Performing Organization Address [facility] Phone Number [facility] [address] [place] [address] * PTH, Intact (08/27/2024 3:00 AM EST) PTH, Intact 478 160 - 721 pg/mL [facility] Comment: Suggested (KDIGO) ESRD maintenance range is two to nine times the upper normal limit (80.1 pg/mL) for the laboratory. 08/27/2024 3:00 AM EST 08/28/2024 1:20 PM EST John Leger MD LAB BLOOD ORDERABLES Final Re sult Performing Organization Address [facility] de Phone Number [facility] [address] [place] [address] * Magnesium (08/27/2024 3:00 AM EST) Only the most recent of3 resultswithin the time period is included. Magnesium 2.2 1.9 - 2.7 mg/dL [facility] 08/27/2024 3:00 AM EST 08/28/2024 1:20 PM EST John Leger MD LAB BLOOD ORDERABLES Final Re sult Performing Organization Address [facility] de Phone Number [facility] [address] [place] [address] * Lactate dehydrogenase (08/27/2024 3:00 AM EST) Only the most recent of3 resultswithin the time period is included. LDH 199 120 - 246 U/L [facility] 08/27/2024 3:00 AM EST 08/28/2024 1:20 PM EST John Leger MD LAB BLOOD ORDERABLES Final Re sult Performing Organization Address [facility] de Phone Number [facility] [address] [place] [address] * Glucose, random (08/27/2024 3:00 AM EST) Only the most recent of3 resultswithin the time period is included. Glucose 98 74 - 109 mg/dL [facility] 08/27/2024 3:00 AM EST 08/28/2024 1:20 PM EST John Leger MD LAB BLOOD ORDERABLES Final Re sult Performing Organization Address [facility] de Phone Number [facility] [address] [place] [address] * (ABNORMAL) Ferritin (08/27/2024 3:00 AM EST) Only the most recent of2 resultswithin the time period is included. Ferritin 1,028(H) 22 - 322 ng/mL [facility] 08/27/2024 3:00 AM EST 08/28/2024 1:20 PM EST John Leger MD LAB BLOOD ORDERABLES Final Re sult Performing Organization Address [facility] de Phone Number [facility] [address] [place] [address] * (ABNORMAL) Creatinine, serum (08/27/2024 3:00 AM EST) Only the most recent of3 resultswithin the time period is included. Creatinine 7.08(H) 0.70 - 1.30 mg/dL [facility] 08/27/2024 3:00 AM EST 08/28/2024 1:20 PM EST John Leger MD LAB BLOOD ORDERABLES Final Re sult Performing Organization Address [facility] de Phone Number [facility] [address] [place] [address] * (ABNORMAL) Bilirubin, total (08/27/2024 3:00 AM EST) Only the most recent of3 resultswithin the time period is included. Total Bilirubin 0.2(L) 0.3 - 1.2 mg/dL [facility] 08/27/2024 3:00 AM EST 08/28/2024 1:20 PM EST John Leger MD LAB BLOOD ORDERABLES Final Re sult Performing Organization Address [facility] de Phone Number [facility] [address] [place] [address] * (ABNORMAL) Lipid panel (08/27/2024 3:00 AM EST) Cholesterol 142 <200 mg/dL [facility] Comment: Optimal: ?<200 Borderline: ? 200-239 Higher Risk: ?>239 Triglycerides 169(A) <150 mg/dL [facility] Comment: Optimal: ?<150 Borderline High: ??150-199 High: ? 200-499 Very High: ?>499 HDL 32(A) >59 mg/dL [facility] Comment: Desirable: ?>59 Higher Risk: ?<40 LDL-Calc 76 <100 mg/dL [facility] Comment: Optimal: ?<100 Above Optimal: ?100-129 Borderline High: ??130-159 High: ? 160-189 Very High: ?>189 VLDL Cholesterol Sd 34(A) <30 mg/dL [facility] Comment: Optimal: ?<30 Borderline High: ??30-39 High: ? 40-99 Very High: ?>99 Chol/HDL Ratio 4.4(A) <3.3 [facility] Comment: Optimal: ?<3.3 Higher Risk: ?>6.2 08/27/2024 3:00 AM EST 08/28/2024 1:20 PM EST John Leger MD LAB BLOOD ORDERABLES Final Re sult Performing Organization Address [facility] de Phone Number [facility] [address] [place] [address] * (ABNORMAL) Electrolyte panel (08/27/2024 3:00 AM EST) Only the most recent of3 resultswithin the time period is included. Sodium 133(L) 136 - 145 mEq/L [facility] Potassium 4.9 3.4 - 5.0 mEq/L [facility] Chloride 98 98 - 107 mEq/L [facility] Bicarbonate (CO2) 24 21 - 31 mEq/L [facility] Anion Gap 11 3 - 14 mEq/L [facility] 08/27/2024 3:00 AM EST 08/28/2024 1:20 PM EST John Leger MD LAB BLOOD ORDERABLES Final Re sult Performing Organization Address [facility] de Phone Number [facility] [address] [place] [address] from Last 3 Months Insurance MEDICARE MEDICAID [place] Care Teams Surgical Specialist Relationship Specialty Start Date End Date Sal Valencia MD [id number] LISA YING PCP - General 08/30/20
--- OUTSIDE RECORDS SUMMARY | 2024-09-15 16:08 | XMS_ITS | Encounter Summary ---
Author Organization [facility] Address [address] [place] [phone] Phone Care Team Providers Care Career Specialist Name Role Phone Sal Valencia MD Primary Care Provider [phone] Encounter Details Date Type Department Care Team ([facility] st Contact Info) Description 08/19/2024 Treatment [facility] [address] [place] [phone] Eulalia Herzog MD [facility] [phone] Social History Tobacco Use Types Packs/Day [...] Dialysis Note - Eulalia Herzog MD - 08/19/2024 12:00 AM EST Patient: Narinder Lara : 1960 Note Type: Dialysis Rounds-Basic Telehealth Service Date: 08/19/2024 Telehealth encounter using audiovisual technology, performed according to state requirements. Appropriate patient consent obtained. This patient was personally seen for a basic visit as part of routine monthly dialysis care for end stage renal disease. Attending Health Aide: EULALIA HERZOG MD Dialysis Location: [facility] Schedule: Shift: 2 ADEQUACY ASSESSMENT Kt/V, Natural Log 1.74 (07/23/24) [...] (06/25/24) BMM ASSESSMENT Calcium, Adjusted Total 9.0 07/23/24 9.3 06/25/24 Calcium 9.0 07/23/24 9.3 06/25/24 Phosphorus, Serum 6.7 08/06/24 7.1 07/23/24 5.5 06/30/24 Ca*PO4 63.9 07/23/24 68.8 06/25/24 Magnesium 2.2 07/23/24 2.1 06/25/24 Alkaline Phosphatase 134 07/23/24 132 06/25/24 NUTRITION ASSESSMENT Albumin 4.2 07/23/24 4.1 06/25/24 Potassium 4.8 08/10/24 5.3 08/06/24 5.8 07/30/24 ADDITIONAL LABS White Blood Cells 6.5 (07/23/24) 5.8 (06/25/24) ADDITIONAL COMMENT COMMENTS: 08/19/24 stable 04/23/24 stable 04/28/24 no new issues 05/05/24 stable 05/12/24 no need issues 05/26/24 stable 06/11/24 no new issues 06/23/24 stable 06/30/24 doing ok 07/07/24 stable 07/15/24 same 07/21/24 doing ok 07/28/24 stable 08/04/24 same 08/12/24 no New issues Signed by: EULALIA HERZOG MD on 08/19/2024 at 02:01:36 PM Transcribed by: EULALIA HERZOG MD on 08/19/2024 at 02:01:36 PM documented in this encounter Plan of Treatment Not on file documented as of this encounter Visit Diagnoses Not on filedocumented in this encounter Care Teams Career Specialist Relationship Specialty Start Date End Date Sal Valencia MD [address] [place] [address] [address] [place] PCP - General 08/30/20 documented as of this encounter
--- OUTSIDE RECORDS SUMMARY | 2024-09-15 16:08 | XMS_ITS | Encounter Summary ---
Author Organization [facility] Address [address] [place] [phone] Phone Care Team Providers Care Incident Analyst Name Role Phone Sal Valencia MD Primary Care Provider [phone] Encounter Details Date Type Department Care Team ([facility] st Contact Info) Description 09/10/2024 Treatment [facility] [address] [place] [phone] Eulalia Herzog MD [facility] [address] [phone] Social History Tobacco Use Types [...] Dialysis Note - Eulalia Herzog MD - 09/10/2024 12:00 AM EST Patient: Narinder Lara : 1960 Note Type: Dialysis Rounds-Basic Telehealth Service Date: 09/10/2024 Telehealth encounter using audiovisual technology, performed according to state requirements. Appropriate patient consent obtained. This patient was personally seen for a basic visit as part of routine monthly dialysis care for end stage renal disease. Attending Twister Tender Paper: EULALIA HERZOG Dialysis Location: [facility] Schedule: Shift: 2 ADEQUACY ASSESSMENT Kt/V, Natural Log 1.83 (08/27/24) 1.74 (07/23/24) 1.58 (06/25/24) UREA REDUCTION RATIO (%) 79 (08/27/24) 78 (07/23/24) 75 (06/25/24) BUN 33 (08/27/24) 40 (07/23/24) 36 (06/25/24) BUN Post Dialysis 7 (08/27/24) 9 (07/23/24) 9 (06/25/24) Creatinine 7.08 (08/27/24) 7.00 (07/23/24) 7.31 (06/25/24) Bicarbonate (CO2) 24 (08/27/24) 25 (07/23/24) 26 (06/25/24) Sodium 133 (08/27/24) 137 (07/23/24) 136 (06/25/24) ANEMIA ASSESSMENT Hgb 9.8 (08/27/24) 10.3 (08/06/24) 10.7 (07/30/24) Iron Saturation (TSat) 18 (08/27/24) 28 (07/23/24) 48 (06/25/24) Ferritin 1,028 (08/27/24) 1,344 (06/25/24) Iron 41 (08/27/24) 51 (07/23/24) 96 (06/25/24) TIBC 224 (08/27/24) 182 (07/23/24) 200 (06/25/24) MCV 106.1 (08/27/24) 109.4 (07/23/24) 110.0 (06/25/24) Platelets 223 (08/27/24) 201 (07/23/24) 202 (06/25/24) BMM ASSESSMENT Calcium, Adjusted Total 9.3 08/27/24 9.0 07/23/24 9.3 06/25/24 Calcium 9.3 08/27/24 9.0 07/23/24 9.3 06/25/24 Phosphorus, Serum 7.1 08/27/24 7.4 08/17/24 6.7 08/06/24 Ca*PO4 66.0 08/27/24 63.9 07/23/24 68.8 06/25/24 PTH, Intact 478 08/27/24 Vitamin D, 25-Hydroxy 43 08/27/24 Magnesium 2.2 08/27/24 2.2 07/23/24 2.1 06/25/24 Alkaline Phosphatase 135 08/27/24 134 07/23/24 132 06/25/24 Aluminum 6 08/27/24 NUTRITION ASSESSMENT Albumin 4.3 08/27/24 4.2 07/23/24 4.1 06/25/24 Potassium 4.4 09/03/24 4.9 08/27/24 4.9 08/17/24 ADDITIONAL LABS White Blood Cells 6.8 (08/27/24) 6.5 (07/23/24) 5.8 (06/25/24) Cholesterol 142 (08/27/24) HDL 32 (08/27/24) LDL-Calc 76 (08/27/24) Triglycerides 169 (08/27/24) Hep B Surface Antibody <4 (08/27/24) Uric Acid 6.2 (08/27/24) ADDITIONAL COMMENT COMMENTS: 08/19/24 stable 08/22/24 same issues 04/23/24 stable 04/28/24 no new issues 05/05/24 stable 05/12/24 no need issues 05/26/24 stable 06/11/24 no new issues 06/23/24 stable 06/30/24 doing ok 07/07/24 stable 07/15/24 same 07/21/24 doing ok 07/28/24 stable 08/04/24 same 08/12/24 no New issues 09/10/24 stable Signed by: EULALIA HERZOG MD on 09/10/2024 at 06:11:50 PM Transcribed by: EULALIA HERZOG MD on 09/10/2024 at 06:11:50 PM documented in this encounter Plan of Treatment Not on file documented as of this encounter Visit Diagnoses Not on filedocumented in this encounter Care Teams Incident Analyst Relationship Specialty Start Date End Date Sal Valencia MD [address] [place] [address] [address] [place], [place] PCP - General 08/30/20 documented as of this encounter
--- OUTSIDE RECORDS SUMMARY | 2024-09-15 16:08 | XMS_ITS | Patient Health Record ---
Author Organization [facility] Address [address] [place] [address] Care Team Providers Care Emergency Communications Operator Name Role Phone Sal Valencia MD Primary Care Provider Marcos Castañeda Jr Unavailable REASON FOR REFERRAL No Information MEDICATIONS Medication SIG (Take, Route, Frequency, Duration) Notes Start Date End Date Status Super [place]-3 1000 MG Oral for 30 Active Metoprolol Tartrate 50 MG Oral for 30 Active Aspirin Low Dose 81 MG Oral for 30 Active Famotidine 20 MG Oral for 30 A ctive Auryxia 1 GM 210 MG(Fe) Oral for 30 Active Furosemide 80 MG Oral for 90 A ctive Midodrine HCl 5 MG Oral for 28 Active [place] Caps 1 MG Oral for 30 Act jazmyn Ventolin HFA 108 (90 Base) MCG/ACT Inhalation for 25 Active Loperamide HCl 2 MG Oral for 20 Active Pepcid Active amLODIPine Besylate 5 MG Oral for 30 Active D-5000 125 MCG (5000 UT) Oral for 30 Active Paliperidone ER 3 MG Oral for 30 Active ProAir HFA 108 (90 Base) MCG/ACT Inhalation for 16 Active Perphenazine 4 MG Oral for 30 Active Albuterol Sulfate HFA 108 (90 Base) MCG/ACT Inhalation for 17 Activ e immodium Active Multivitamin Active Spiriva Respimat 2.5 MCG/ACT 2 puffs Inhalation Once a day Active SOCIAL HISTORY Tobacco Use: Social History Observation Description Date Details (start date - stop date) Former Smoker NA - NA Sex Assigned At : Social History Observation Description Sex Assigned At Unknown Tobacco Use/Smoking Question Answer Notes Patient is a former smoker Alcohol Screen Question Answer Notes Did you have a drink containing alcohol in the p ast year? No Points 0 Interpretation Negative PROBLEMS Problem Type ICD Code Onset Dates Problem Status W/U Status Risk SNOMED Code Notes Problem Anemia, unspecified type (D64.9) Active confirmed 553039614 Problem Colon cancer screening declined (Z53.20) Active confirmed [id number] PLAN OF TREATMENT No Information Insurance Providers Payer Name Payer Address Payer Phone Subscriber Number Group Number Insured Name Patient Relationship to Insured Coverage Start Date Coverage End Date [facility] [address] [address] [place], [place] [id number] MARYAM VELAZQUEZ Self - patient is the insured MEDICAL (GENERAL) HISTORY Medical History History ICD Code anemia End-stage renal disease Paranoid schizophrenia Bronchitis/COPD uses supplemental oxygen crohns ? hypertension Surgical History Surgery Date(Month/Year) Dental extractions Bladder tumors
--- OUTSIDE RECORDS SUMMARY | 2024-09-15 16:08 | XMS_ITS | Encounter Summary ---
Author Organization [facility] Address [address] [place] [address] Phone Care Team Providers Care Loss Prevention Investigator Name Role Phone Sal Valencia MD Primary Care Provider [phone] Reason for Visit * Reason Comments Med Refill Encounter Details Date Type Department Care Team ([facility] [address] Contact Info) Description 09/20/2021 Refill [facility] [address] [place] [phone] Manny Barcenas MD Social History Tobacco Use Types Packs/Day Years [...] on file documented as of this encounter Plan of Treatment Not on file documented as of this encounter Visit Diagnoses Not on filedocumented in this encounter Care Teams Loss Prevention Investigator Relationship Specialty Start Date End Date Sal Valencia MD [address] [place] PCP - General 08/30/20 documented as of this encounter
--- NOTE | 2024-09-15 16:20 | PM.UROCN ---
History of Present Illness Consult details Consult date: 09/15/24 Narrative: h/o ESRD, found unresponsive, currently in ICU, intubated U/A consistent with UTI hematuria, may be traumatic from catheter placement CTAP -- right hydro, inflammatory changes Kidneys are moderately atrophic with diffuse cortical thinning, several parenchymal cysts, and moderate right hydronephrosis. There are numerous renal calcifications, which appear within the cortex is apposed to the collecting system. There are probable vascular calcifications in the hilar regions. -The right renal pelvis and proximal ureter are somewhat hyperattenuating, possibly on the basis of hemorrhage and/or infection. Review of Systems Review of Systems: Yes unobtainable due to endotracheal tube PMFSH Past Medical History Medical History ESRD needing dialysis Chronic paranoid schizophrenia Paranoid ideation HTN (hypertension) End stage renal disease COVID-19 Social History Social History Household Members: Unknown / Unable to assess Household Members Other:: self Housing: Unknown / Unable to assess Do you presently have visiting nurse or other home services: Yes Unable to assess alcohol history related to: Unknown Alcohol intake: unknown Patient Tobacco Use Status: Former Tobacco user Tobacco use type: Cigarette e-Cigarette/Vaping Use: Never Used Second Hand Smoke Exposure: No Use of substances other than those prescribed or required for medical reasons: Unknown Substance Use Type: Unknown Advance Directives: Yes Advance Directives on File: Yes Advance Directives Date on File: 08/31/20 Do you have a plan to hurt others: No Plan service: No Current occupational status: disabled Meds Allergies Allergy/AdvReac Type Severity Reaction Status Date / Time thioridazine [From MELLARIL] Allergy Severe Anaphylaxis, Verified 09/15/24 12:19 tongue swelling Active Medications: Current Medications Famotidine (Famotidine/Pf 20 Mg/2 Ml Vial) 20 mg IVPUSH BID ARJUN Last Admin: 09/15/24 13:39 Dose: 20 mg Hydromorphone HCl (Hydromorphone Hcl 1 Mg/Ml Syringe) 0.5 mg IVPUSH Q6H PRN; Protocol PRN Reason: Pain, Moderate(Pain Scale 4-6) Propofol (Diprivan) 1,000 mg in 100 mls @ 0 mls/hr IVCONT .Q0M ARJUN; Protocol Last Titration: 09/15/24 13:53 Dose: 40 mcg/kg/min, 21.07 mls/hr Norepinephrine Bitartrate (Levophed) 8 mg in 250 mls @ 0 mls/hr IVCONT .Q0M ARJUN; Protocol Last Titration: 09/15/24 16:19 Dose: 0.09 mcg/kg/min, 14.82 mls/hr Piperacillin Sod/Tazobactam (Sod 4.5 gm/ Sodium Chloride) 50 mls @ 100 mls/hr IV Q12H ARJUN Last Infusion: 09/15/24 14:24 Dose: Infused Vancomycin HCl 500 mg/ Sodium (Chloride) 110 mls @ 110 mls/hr IV ONCE ONE Stop: 09/15/24 15:29 Pharmacy Consult (Consult Rx Vancomycin Dosing) 1 each MISCELLANE DAILY PRN PRN Reason: Consult order Home Medications ?Medication ?Instructions ?Recorded ?Confirmed ?Last Taken ?Type aspirin 81 mg tablet,delayed 81 mg PO DAILY 08/31/20 09/15/24 Unknown History release famotidine 20 mg tablet 20 mg PO BEDTIME 08/31/20 09/15/24 Unknown History furosemide 80 mg tablet 80 mg PO DAILY 08/31/20 09/15/24 Unknown History loperamide 2 mg capsule 2 mg PO TID PRN Diarrhea 08/31/20 09/15/24 Unknown History paliperidone 3 mg tablet,extended 3 mg PO DAILY 08/31/20 09/15/24 Unknown History release 24 hr perphenazine 4 mg tablet 4 mg PO BID 08/31/20 09/15/24 Unknown History vitamin B complex and vitamin C 1 cap PO DAILY 08/31/20 09/15/24 Unknown History no.20-folic acid 1 mg capsule ([place] Caps) cholecalciferol (vitamin D3) 125 125 mcg PO DAILY 01/13/21 09/15/24 Unknown History mcg (5,000 unit) tablet nicotine 14 mg/24 hr daily 1 patch transdermal DAILY PRN 01/13/21 09/15/24 Unknown History transdermal patch Nicotine Cravings amlodipine 5 mg tablet 5 mg PO DAILY 07/14/22 09/15/24 Unknown History midodrine 5 mg tablet 5 mg PO MOWEFR@0900,1800 07/14/22 09/15/24 Unknown History multivitamin 1 tab PO DAILY 07/14/22 09/15/24 Unknown History omega-3 fatty acids 1,000 mg 1 cap PO BID 07/14/22 09/15/24 Unknown History capsule metoprolol tartrate 50 mg tablet 25 mg PO BID 09/15/24 09/15/24 Unknown History Physical Exam Vital Signs: Vital Signs: Last Vital Signs Temp 97.3 F 09/15/24 16:00 Pulse 67 09/15/24 16:19 Resp 17 09/15/24 16:00 BP 89/46 L 09/15/24 16:19 Pulse Ox 89 L 09/15/24 16:00 O2 Del Method Mechanical Ventil ation 09/15/24 16:00 FiO2 40 09/15/24 16:00 BMI result Body Mass Index 26.5 HEENT: Head: Yes normocephalic and Yes atraumatic Resp: Other: intubated on ventilator Cardio: Rate: regular rate : Other: charles draining strawberry color'd urine Penis: normal penis and uncircumcised Skin: General skin exam: no rashes or lesions noted Results Labs 09/15/24 11:04 09/15/24 12:09 Labs: Abnormal lab results 09/15/24 09/15/24 09/15/24 Range/Units 11:04 11:13 11:54 WBC 13.7 H (4.8-10.8) X10*3/uL RBC 3.03 L (4.60-5.80) X10*6/uL Hgb 10.1 L D (14.0-18.0) g/dl Hct 32.1 L (42.0-52.0) % MCV 105.9 H (80.0-98.0) fL MCH 33.3 H (27.0-33.0) pg RDW 16.2 H (11.0-16.0) % Immature Gran % (Auto) 1.8 H (0.0-0.4) % Neut % (Auto) 81.4 H (45-73) % Lymph % (Auto) 9.1 L (20-40) % Abs Immat Gran (auto) 0.24 H (0.00-0.03) X10*3/uL Absolute Neuts (auto) 11.1 H (2.0-8.3) x10*3/uL PT 13.2 H (10.9-12.4) SEC VBG pH 7.19 L* (7.32-7.43) VBG HCO3 18 L (22-26) mmol/L Potassium (3.3-5.1) mmol/L Carbon Dioxide (22-29) mmol/L Anion Gap (12-20) BUN (9-16) mg/dL Creatinine (0.5-1.4) mg/dL Random Glucose (60-115) mg/dL Lactic Acid (0.5-2.0) mmol/L Alkaline Phosphatase (39-117) U/L Troponin I High Sens (<3.5-35.0) ng/L Urine Blood Large (3+) H (Negative) Ur Leukocyte Esterase Large (3+) H (Negative) Urine RBC >20 H (0-2) /HPF Urine WBC 21-50 H (0-5) /HPF 09/15/24 09/15/24 09/15/24 Range/Units 12:09 12:10 14:31 WBC (4.8-10.8) X10*3/uL RBC (4.60-5.80) X10*6/uL Hgb (14.0-18.0) g/dl Hct (42.0-52.0) % MCV (80.0-98.0) fL MCH (27.0-33.0) pg RDW (11.0-16.0) % Immature Gran % (Auto) (0.0-0.4) % Neut % (Auto) (45-73) % Lymph % (Auto) (20-40) % Abs Immat Gran (auto) (0.00-0.03) X10*3/uL Absolute Neuts (auto) (2.0-8.3) x10*3/uL PT (10.9-12.4) SEC VBG pH 7.57 H (7.32-7.43) VBG HCO3 (22-26) mmol/L Potassium 5.4 H (3.3-5.1) mmol/L Carbon Dioxide 18 L (22-29) mmol/L Anion Gap 24 H (12-20) BUN 43 H (9-16) mg/dL Creatinine 8.56 H* (0.5-1.4) mg/dL Random Glucose 221 H (60-115) mg/dL Lactic Acid 3.0 H* (0.5-2.0) mmol/L Alkaline Phosphatase 139 H (39-117) U/L Troponin I High Sens 59.2 H D (<3.5-35.0) ng/L Urine Blood (Negative) Ur Leukocyte Esterase (Negative) Urine RBC (0-2) /HPF Urine WBC (0-5) /HPF 09/15/24 Range/Units 14:35 WBC (4.8-10.8) X10*3/uL RBC (4.60-5.80) X10*6/uL Hgb (14.0-18.0) g/dl Hct (42.0-52.0) % MCV (80.0-98.0) fL MCH (27.0-33.0) pg RDW (11.0-16.0) % Immature Gran % (Auto) (0.0-0.4) % Neut % (Auto) (45-73) % Lymph % (Auto) (20-40) % Abs Immat Gran (auto) (0.00-0.03) X10*3/uL Absolute Neuts (auto) (2.0-8.3) x10*3/uL PT (10.9-12.4) SEC VBG pH (7.32-7.43) VBG HCO3 (22-26) mmol/L Potassium (3.3-5.1) mmol/L Carbon Dioxide (22-29) mmol/L Anion Gap (12-20) BUN (9-16) mg/dL Creatinine (0.5-1.4) mg/dL Random Glucose (60-115) mg/dL Lactic Acid (0.5-2.0) mmol/L Alkaline Phosphatase (39-117) U/L Troponin I High Sens 177.7 H* D (<3.5-35.0) ng/L Urine Blood (Negative) Ur Leukocyte Esterase (Negative) Urine RBC (0-2) /HPF Urine WBC (0-5) /HPF Short CBC 09/15/24 Range/Units 11:04 WBC 13.7 H (4.8-10.8) X10*3/uL Hgb 10.1 L D (14.0-18.0) g/dl Hct 32.1 L (42.0-52.0) % Plt Count 288 D (160-400) X10*3/uL BMP 09/15/24 12:09 Sodium 137 Potassium 5.4 H Chloride 100 Carbon Dioxide 18 L BUN 43 H Creatinine 8.56 H* Calcium 9.2 Liver Function 09/15/24 Range/Units 12:09 Total Bilirubin 0.6 (0.0-1.0) mg/dL AST 30 (5-37) U/L ALT 20 (0-40) U/L Alkaline Phosphatase 139 H (39-117) U/L Albumin 4.0 (3.5-5.0) g/dL Urine 09/15/24 Range/Units 11:54 Urine Color RED Urine Appearance Turbid Urine pH 7.5 (5.0-9.0) Ur Specific [place] 1.020 (1.005-1.025) Urine Protein See Note (Neg-Trace) mg/dL Urine Glucose (UA) See Note (Negative) mg/dL Imaging Additional studies: Date of Service: 09/15/24 EXAMINATION: CT ABDOMEN AND PELVIS WITHOUT CONTRAST CLINICAL INFORMATION: Unresponsive, bleeding. COMPARISON: 08/31/2020. TECHNIQUE: Multidetector volumetric imaging was performed from the superior aspect of the liver through the pubic symphysis. Sagittal and coronal reformatted images were obtained on the technologist's workstation. This CT examination was performed using dose optimization techniques as appropriate, variously including the following: *Automated exposure control *Adjustment of mA and/or kV according to patient size (this includes techniques or standardized protocols for targeted exams where dose is matched to indication/reason for exam; i.e. extremities or head) *Use of iterative reconstruction technique FINDINGS: LUNG BASES: Refer to the dedicated CT thorax performed concurrently. LIVER, GALLBLADDER, AND BILIARY TREE: The liver is normal in size, shape, and attenuation. No focal hepatic lesion or biliary ductal dilatation is present. The gallbladder demonstrates a tiny calcified intraluminal gallstone. No evidence of gallbladder wall thickening, or obvious pericholecystic inflammatory changes. PANCREAS: Unremarkable. SPLEEN: Mild splenomegaly, with CC diameter of 13.9 cm ADRENAL GLANDS: -1.7 cm right adrenal adenoma, lateral martell. -Left is normal. KIDNEYS AND URETERS: -Kidneys are moderately atrophic with diffuse cortical thinning, several parenchymal cysts, and moderate right hydronephrosis. There are numerous renal calcifications, which appear within the cortex is apposed to the collecting system. There are probable vascular calcifications in the hilar regions. -The right renal pelvis and proximal ureter are somewhat hyperattenuating, possibly on the basis of hemorrhage and/or infection. -The right ureter past the right UPJ is nondilated. -Left ureter is nondilated. BLADDER: -Collapsed around a Charles catheter balloon. Limited evaluation. Distal ureters are nondilated. -There is mild perivesicular fat stranding. GASTROINTESTINAL TRACT: -NG tube terminates within the proximal body of the stomach. -Stomach, duodenum, and small bowel are normal in course and caliber. -No evidence of appendicitis. -The colon is grossly normal in course and caliber. There is moderate to severe diverticulosis of the sigmoid, with moderate changes in the descending colon. No evidence of inflammation or wall thickening. ABDOMINAL WALL: There is a fat-containing periumbilical hernia, with hernia sac measuring approximately 3.8 cm in diameter. LYMPH NODES: 9-no pathologic lymphadenopathy. VASCULAR: Moderate atheromatous changes of the aorta and iliac arteries. There is a fusiform dilatation of the mid aorta with maximal diameter of 2.4 cm. PELVIC VISCERA: The prostate and seminal vesicles are unremarkable. OSSEOUS STRUCTURES: -There has been prior placement of orthopedic hardware within the right proximal femur, fixating an intertrochanteric hip fracture. There is a small fluid collection surrounding the proximal aspect of the femoral head compression screw extending into the soft tissues, measuring approximately 3.7 x 2.4 x 5.9 cm (AP, TRV, CC). (Series 23, image 90). Mild periscrew lucency is present abutting the proximal screw within the bone. Cannot exclude infection given the appearance. -No suspicious lytic or blastic bone lesions. -Bones appear mildly hyperdense, possibly representing renal osteodystrophy. IMPRESSION: 1. Moderate right hydronephrosis with hyperattenuation in the right renal pelvis, possibly representing collecting system hemorrhage or infection. There is abrupt caliber change at the ureteropelvic junction with the remainder of the ureter appearing nondilated. No definite obstructing lesion is evident. 2. Significant atrophy, cysts, parenchymal and vascular calcifications in both kidneys. No left-sided hydronephrosis. 3. Urinary bladder is contracted around a Charles catheter balloon. There is mild perivesicular stranding, nonspecific. 4. Severe diverticulosis of the sigmoid colon without evidence of acute inflammation. 5. Small fluid collection abutting the RIGHT greater trochanter, along the base of the femoral head compression screw, measuring 3.7 x 2.4 x 5.9 cm. This is nonspecific, differential includes infection, versus bursitis. Mild periscrew lucency surrounding the most proximal femoral head screw within the greater trochanter. 6. Mild splenomegaly. 7. NG tube in good position. Assessment and Plan (1) End stage renal disease: Status: Acute (2) Acute lower UTI: Status: Acute (3) Gross hematuria: Status: Acute Plan Patient currently receiving Dialysis Review of CT images, multiple renal cysts, moderate right hydro questionable. UTI Hematuria improving, d/c charles when no longer needed Procedures Date of Service Date of Service: 09/15/24
[2024-09-15] MEDS: propofoL 1,000 MG/100 ML VIAL 21.07 MG IVCONT ×2 (16:28→19:55)
--- NOTE | 2024-09-15 18:01 | PHA.MEDREC ---
Addendum entered by Shaylee Cohen RPh 09/15/24 18:34: [facility] reviewed Original Note: Pharmacy Consult ? Medication Reconciliation Pharmacy has completed the medication reconciliation. Utilized list from [facility] ([phone]) patient SWABBER service to confirm med list.
[2024-09-15 19:05] LABS: Anion Gap 16 (12-20); Blood Urea Nitrogen 13 mg/dL (9-16); Calcium 8.9 mg/dL (8.4-10.2); Carbon Dioxide 23 mmol/L (22-29); Chloride 102 mmol/L (96-108); Estimated Glomerular Filt Rate 21; Glucose Random 112 mg/dL (60-115); Magnesium 1.9 mg/dL (1.6-2.6); Phosphorus 2.7 mg/dL (2.7-4.5); Potassium 3.1 mmol/L (3.3-5.1); Sodium 138 mmol/L (135-145)
[2024-09-15 19:14] LABS: Troponin-I High Sensitivity 354.2 ng/L (<3.5-35.0)
[2024-09-15] MEDS: Potassium Chloride Packet 20 MEQ PACKET 40 MEQ OG-TUBE (19:45)
[2024-09-15] MEDS: iohexoL 350 MG/ML 100 ML INFUS..BTL 85 ML IV (22:03)
[2024-09-15 23:31] LABS: Troponin-I High Sensitivity 366.5 ng/L (<3.5-35.0)
[2024-09-15] MEDS: propofoL 1,000 MG/100 ML VIAL 26.34 MG IVCONT (23:53)
[2024-09-16] VITALS (41 sets, daily range): BP systolic 80–149; BP diastolic 40–74; PULSE 62–105; RESP 12–36; TEMP 32–38.5; O2SAT 87–98; BMI 27.2
[2024-09-16] MEDS: propofoL 1,000 MG/100 ML VIAL 26.34 MG IVCONT (03:24)
[2024-09-16] MEDS: Norepinephrine Bitartrate/D5W 8 MG/250 ML PLAST..BAG 11.52 MG IVCONT (05:08)
[2024-09-16 05:32] LABS: VBG Base Excess -2.1 mmol/L; VBG HCO3 22 mmol/L (22-26); VBG pCO2 36 mmHg; VBG pH 7.38 (7.32-7.43); VBG pO2 58 mmHg
[2024-09-16 05:39] LABS: Venous Blood Gas Refer to POC result
[2024-09-16 05:42] LABS: MANUAL DIFF FLAG NO
[2024-09-16 05:44] LABS: Basophils Absolute Auto 0.1 X10*3/uL (0.0-0.2); Basophils Percent Auto 0.7 % (0-2); Eosinophils Absolute Auto 0.1 X10*3/uL (0.0-0.4); Eosinophils Percent Auto 0.7 % (0-4); Hematocrit 30.7 % (42.0-52.0); Hemoglobin 9.4 g/dl (14.0-18.0); Imm Gran Abs Auto 0.13 X10*3/uL (0.00-0.03); Imm Gran Pct Auto 0.9 % (0.0-0.4); Lymphocytes Absolute Auto 0.6 X10*3/uL (1.2-4.9); Lymphocytes Percent Auto 4.6 % (20-40); Mean Corpuscular HGB Conc 30.6 g/dl (31.0-36.0); Mean Corpuscular Hemoglobin 32.4 pg (27.0-33.0); Mean Corpuscular Volume 105.9 fL (80.0-98.0); Mean Platelet Volume 10.6 fL (9.4-12.4); Monocytes Absolute Auto 1.1 X10*3/uL (0.1-1.2); Monocytes Percent Auto 8.1 % (2-11); Neutrophils Absolute Auto 11.7 x10*3/uL (2.0-8.3); Platelet Count 249 X10*3/uL (160-400); Red Cell Distribution Width 16.8 % (11.0-16.0); White Blood Count 13.8 X10*3/uL (4.8-10.8)
[2024-09-16 06:11] LABS: Anion Gap 20 (12-20); Blood Urea Nitrogen 19 mg/dL (9-16); Calcium 9.1 mg/dL (8.4-10.2); Carbon Dioxide 18 mmol/L (22-29); Chloride 99 mmol/L (96-108); Creatinine Clr Calc Pharmacy 16.7; Estimated Glomerular Filt Rate 13; Glucose Random 130 mg/dL (60-115); Phosphorus 4.6 mg/dL (2.7-4.5); Potassium 5.1 mmol/L (3.3-5.1); Sodium 132 mmol/L (135-145)
[2024-09-16] MEDS: propofoL 1,000 MG/100 ML VIAL 15.8 MG IVCONT (06:23)
--- NOTE | 2024-09-16 08:37 | P.PNCC_ITS ---
Subjective Subjective Date of Service: 09/16/24 Critical Care Time (minutes): 60 Physical Exam 2 Vital Signs: Vital Signs: Last Vital Signs Temp 99.5 F 09/16/24 08:00 Pulse 84 09/16/24 08:00 Resp 18 09/16/24 08:00 BP 118/69 09/16/24 08:00 Pulse Ox 98 09/16/24 08:00 O2 Del Method Mechanical Ventil ation 09/16/24 08:00 O2 Flow Rate 40 09/16/24 03:00 FiO2 40 09/16/24 08:00 BMI result Body Mass Index 27.2 Const: Other: intubated, sedated, though appreciable spontaneous movements, opens eyes, tracks General: comfortable and no acute distress HEENT: Head: Yes normal to inspection, Yes normocephalic and Yes atraumatic Eyes: General: appearance normal, both eyes and all related structures Neck: Neck: Yes normal visual inspection, Yes full ROM, Yes no meningeal signs, Yes trachea midline and Yes supple Chest: Chest palpation & inspection: normal inspection of the chest Resp: Other: diminished breath sounds throughout; no appreciable rales, rhonchi, wheezing Effort & Inspection: normal respiratory effort Cardio: Rate: regular rate Rhythm: regular rhythm GI: Inspection: Yes normal to inspection, No Abdominal wall edema and No distended Palpation (GI): Soft to palpation, not firm, nontender, no guarding and not rigid Skin: General skin exam: no rashes or lesions noted Neuro: General: tone normal and no meningeal signs Extrem: Other: appreciable 1+ pitting edema to bilateral shins General: Yes normal to inspection, Yes full ROM, Yes capillary refill normal and Yes no joint enlargement Psych: Other: unable to assess Objective Data Labs 09/16/24 05:28 09/16/24 05:28 Labs: Laboratory Results - last 24 hr 09/15/24 09/15/24 09/15/24 11:04 11:05 11:13 WBC 13.7 H RBC 3.03 L Hgb 10.1 L D Hct 32.1 L MCV 105.9 H MCH 33.3 H MCHC 31.5 RDW 16.2 H Plt Count 288 D MPV 10.6 Immature Gran % (Auto) 1.8 H Neut % (Auto) 81.4 H Lymph % (Auto) 9.1 L [place] % (Auto) 5.4 Eos % (Auto) 1.6 Baso % (Auto) 0.7 Lymph # (Auto) 1.3 [place] # (Auto) 0.7 Eos # (Auto) 0.2 Baso # (Auto) 0.1 Abs Immat Gran (auto) 0.24 H Absolute Neuts (auto) 11.1 H Absolute Nucleated RBC 0.000 Nucleated RBC % (auto) 0.0 PT 13.2 H INR 1.1 VBG pH 7.19 L* VBG pCO2 46 VBG pO2 57 VBG HCO3 18 L VBG O2 Saturation 78.0 VBG Base Excess -9.7 Sodium Potassium Chloride Carbon Dioxide Anion Gap BUN Creatinine Estim Creat Clear Calc Estimated GFR Random Glucose Lactic Acid Lactic Acid F/U @ 2Hr Calcium Phosphorus Magnesium Total Bilirubin AST ALT Alkaline Phosphatase Troponin I High Sens Total Protein Albumin Urine Color Urine Appearance Urine pH Ur Specific [place] Urine Protein Urine Glucose (UA) Urine Ketones Urine Blood Urine Nitrite Ur Leukocyte Esterase Urine RBC Urine WBC Ur Squamous Epith Cells Urine Bacteria Hyaline Casts Stool Occult Blood NEGATIVE Urine Opiates Screen Ur Buprenorphine Scrn Ur Oxycodone Screen Urine Methadone Screen Urine Fentanyl Screen Ur Barbiturates Screen Ur Phencyclidine Scrn Ur Amphetamines Screen U Benzodiazepines Scrn Urine Cocaine Screen U Marijuana (THC) Screen Blood Type O Positive Antibody Screen NEGATIVE 09/15/24 09/15/24 09/15/24 11:54 12:09 12:10 WBC RBC Hgb Hct MCV MCH MCHC RDW Plt Count MPV Immature Gran % (Auto) Neut % (Auto) Lymph % (Auto) [place] % (Auto) Eos % (Auto) Baso % (Auto) Lymph # (Auto) [place] # (Auto) Eos # (Auto) Baso # (Auto) Abs Immat Gran (auto) Absolute Neuts (auto) Absolute Nucleated RBC Nucleated RBC % (auto) PT INR VBG pH VBG pCO2 VBG pO2 VBG HCO3 VBG O2 Saturation VBG Base Excess Sodium 137 Potassium 5.4 H Chloride 100 Carbon Dioxide 18 L Anion Gap 24 H BUN 43 H Creatinine 8.56 H* Estim Creat Clear Calc 9.1 Estimated GFR 6 Random Glucose 221 H Lactic Acid 3.0 H* Lactic Acid F/U @ 2Hr Calcium 9.2 Phosphorus Magnesium Total Bilirubin 0.6 AST 30 ALT 20 Alkaline Phosphatase 139 H Troponin I High Sens 59.2 H D Total Protein 7.8 Albumin 4.0 Urine Color RED Urine Appearance Turbid Urine pH 7.5 Ur Specific [place] 1.020 Urine Protein See Note Urine Glucose (UA) See Note Urine Ketones Negative Urine Blood Large (3+) H Urine Nitrite See Note Ur Leukocyte Esterase Large (3+) H Urine RBC >20 H Urine WBC 21-50 H Ur Squamous Epith Cells 0-2 Urine Bacteria 1+ Hyaline Casts 0-2 Stool Occult Blood Urine Opiates Screen Not Detected Ur Buprenorphine Scrn Not Detected Ur Oxycodone Screen Not Detected Urine Methadone Screen Not Detected Urine Fentanyl Screen Not Detected Ur Barbiturates Screen Not Detected Ur Phencyclidine Scrn Not Detected Ur Amphetamines Screen Not Detected U Benzodiazepines Scrn Not Detected Urine Cocaine Screen Not Detected U Marijuana (THC) Screen Not Detected Blood Type Antibody Screen 09/15/24 09/15/24 09/15/24 14:31 14:35 18:25 WBC RBC Hgb Hct MCV MCH MCHC RDW Plt Count MPV Immature Gran % (Auto) Neut % (Auto) Lymph % (Auto) [place] % (Auto) Eos % (Auto) Baso % (Auto) Lymph # (Auto) [place] # (Auto) Eos # (Auto) Baso # (Auto) Abs Immat Gran (auto) Absolute Neuts (auto) Absolute Nucleated RBC Nucleated RBC % (auto) PT INR VBG pH 7.57 H VBG pCO2 25 VBG pO2 45 VBG HCO3 23 VBG O2 Saturation 82.0 VBG Base Excess 2.5 Sodium 138 Potassium 3.1 L D Chloride 102 Carbon Dioxide 23 Anion Gap 16 BUN 13 Creatinine 3.01 H Estim Creat Clear Calc 26.0 Estimated GFR 21 Random Glucose 112 Lactic Acid Lactic Acid F/U @ 2Hr 1.6 Calcium 8.9 Phosphorus 2.7 Magnesium 1.9 Total Bilirubin AST ALT Alkaline Phosphatase Troponin I High Sens 177.7 H* D 354.2 H* D Total Protein Albumin Urine Color Urine Appearance Urine pH Ur Specific [place] Urine Protein Urine Glucose (UA) Urine Ketones Urine Blood Urine Nitrite Ur Leukocyte Esterase Urine RBC Urine WBC Ur Squamous Epith Cells Urine Bacteria Hyaline Casts Stool Occult Blood Urine Opiates Screen Ur Buprenorphine Scrn Ur Oxycodone Screen Urine Methadone Screen Urine Fentanyl Screen Ur Barbiturates Screen Ur Phencyclidine Scrn Ur Amphetamines Screen U Benzodiazepines Scrn Urine Cocaine Screen U Marijuana (THC) Screen Blood Type Antibody Screen 09/15/24 09/16/24 09/16/24 22:53 05:22 05:28 WBC 13.8 H RBC 2.90 L Hgb 9.4 L Hct 30.7 L MCV 105.9 H MCH 32.4 MCHC 30.6 L RDW 16.8 H Plt Count 249 MPV 10.6 Immature Gran % (Auto) 0.9 H Neut % (Auto) 85.0 H Lymph % (Auto) 4.6 L [place] % (Auto) 8.1 Eos % (Auto) 0.7 Baso % (Auto) 0.7 Lymph # (Auto) 0.6 L [place] # (Auto) 1.1 Eos # (Auto) 0.1 Baso # (Auto) 0.1 Abs Immat Gran (auto) 0.13 H Absolute Neuts (auto) 11.7 H Absolute Nucleated RBC 0.000 Nucleated RBC % (auto) 0.0 PT INR VBG pH 7.38 VBG pCO2 36 VBG pO2 58 VBG HCO3 22 VBG O2 Saturation 89.0 VBG Base Excess -2.1 Sodium 132 L Potassium 5.1 D Chloride 99 Carbon Dioxide 18 L Anion Gap 20 BUN 19 H Creatinine 4.68 H* Estim Creat Clear Calc 16.7 Estimated GFR 13 Random Glucose 130 H Lactic Acid Lactic Acid F/U @ 2Hr Calcium 9.1 Phosphorus 4.6 H Magnesium 2.0 Total Bilirubin AST ALT Alkaline Phosphatase Troponin I High Sens 366.5 H* Total Protein Albumin Urine Color Urine Appearance Urine pH Ur Specific [place] Urine Protein Urine Glucose (UA) Urine Ketones Urine Blood Urine Nitrite Ur Leukocyte Esterase Urine RBC Urine WBC Ur Squamous Epith Cells Urine Bacteria Hyaline Casts Stool Occult Blood Urine Opiates Screen Ur Buprenorphine Scrn Ur Oxycodone Screen Urine Methadone Screen Urine Fentanyl Screen Ur Barbiturates Screen Ur Phencyclidine Scrn Ur Amphetamines Screen U Benzodiazepines Scrn Urine Cocaine Screen U Marijuana (THC) Screen Blood Type Antibody Screen Progress Note: A&P Assessment and plan (1) Respiratory failure: Status: Acute (2) Pneumonia: Status: Acute (3) COPD (chronic obstructive pulmonary disease): Status: Acute Plan Patient is a 64 Y M w/ COPD on 2-4L NC, psychiatric comorbidities, and ESRD on hemodialysis M/W/F, last dialysis session reportedly 09/12, presenting to emergency department on 09/15 w/ obtundation, found to be in acute respiratory failure, intubated N: intubated, sedated w/ propofol gtt, wean as tolerated CV: no acute issues; to closely monitor R: acute respiratory failure, likely multifactorial d/t profound acidosis, pneumonia, COPD; intubated 09/15, wean as tolerated GI: no acute issues; NPO : ESRD on hemodialyis M/W/F, emergent hemodialysis 09/15, appreciate nephrology recommendations; CT A/P demonstrating R hydronephrosis, possible hemorrhage, appreciate urology recommendations H: no acute issues; to avoid chemical DVT prophylaxis in setting of hemoureter; mechanical devices ID: CT C c/f pneumonia and septic R shoulder and R hip; follow-up BCx 09/15; empiric vancomycin, zosyn, appreciate orthopedic surgery recommendations E: no acute issues; to monitor hypo-/hyper-glycemia P: no acute issues; paranoid schizophrenia Quality Stroke Does the patient have a stroke diagnosis?: No VTE Prior VTE?: No VTE Risk Level:: Medical - moderate - high VTE Device Contraindication: N/A - Device Ordered VTE Drug Contraindication: Treatment Not Tolerated
[2024-09-16] MEDS: Famotidine/PF 20 MG/2 ML VIAL IVPUSH (08:48)
--- NOTE | 2024-09-16 08:48 | PM.PNNEP ---
Subjective Subjective Date of Service: 09/16/24 Physical Exam Vital Signs: Vital Signs: Last Vital Signs Temp 99.5 F 09/16/24 08:00 Pulse 84 09/16/24 08:00 Resp 18 09/16/24 08:00 BP 118/69 09/16/24 08:00 Pulse Ox 98 09/16/24 08:00 O2 Del Method Mechanical Ventil ation 09/16/24 08:00 O2 Flow Rate 40 09/16/24 03:00 FiO2 40 09/16/24 08:00 BMI result Body Mass Index 27.2 Objective Data Labs 09/16/24 05:28 09/16/24 05:28 Labs: Laboratory Results - last 24 hr 09/15/24 09/15/24 09/15/24 11:04 11:05 11:13 WBC 13.7 H RBC 3.03 L Hgb 10.1 L D Hct 32.1 L MCV 105.9 H MCH 33.3 H MCHC 31.5 RDW 16.2 H Plt Count 288 D MPV 10.6 Immature Gran % (Auto) 1.8 H Neut % (Auto) 81.4 H Lymph % (Auto) 9.1 L [place] % (Auto) 5.4 Eos % (Auto) 1.6 Baso % (Auto) 0.7 Lymph # (Auto) 1.3 [place] # (Auto) 0.7 Eos # (Auto) 0.2 Baso # (Auto) 0.1 Abs Immat Gran (auto) 0.24 H Absolute Neuts (auto) 11.1 H Absolute Nucleated RBC 0.000 Nucleated RBC % (auto) 0.0 PT 13.2 H INR 1.1 VBG pH 7.19 L* VBG pCO2 46 VBG pO2 57 VBG HCO3 18 L VBG O2 Saturation 78.0 VBG Base Excess -9.7 Sodium Potassium Chloride Carbon Dioxide Anion Gap BUN Creatinine Estim Creat Clear Calc Estimated GFR Random Glucose Lactic Acid Lactic Acid F/U @ 2Hr Calcium Phosphorus Magnesium Total Bilirubin AST ALT Alkaline Phosphatase Troponin I High Sens Total Protein Albumin Urine Color Urine Appearance Urine pH Ur Specific [place] Urine Protein Urine Glucose (UA) Urine Ketones Urine Blood Urine Nitrite Ur Leukocyte Esterase Urine RBC Urine WBC Ur Squamous Epith Cells Urine Bacteria Hyaline Casts Stool Occult Blood NEGATIVE Urine Opiates Screen Ur Buprenorphine Scrn Ur Oxycodone Screen Urine Methadone Screen Urine Fentanyl Screen Ur Barbiturates Screen Ur Phencyclidine Scrn Ur Amphetamines Screen U Benzodiazepines Scrn Urine Cocaine Screen U Marijuana (THC) Screen Blood Type O Positive Antibody Screen NEGATIVE 09/15/24 09/15/24 09/15/24 11:54 12:09 12:10 WBC RBC Hgb Hct MCV MCH MCHC RDW Plt Count MPV Immature Gran % (Auto) Neut % (Auto) Lymph % (Auto) [place] % (Auto) Eos % (Auto) Baso % (Auto) Lymph # (Auto) [place] # (Auto) Eos # (Auto) Baso # (Auto) Abs Immat Gran (auto) Absolute Neuts (auto) Absolute Nucleated RBC Nucleated RBC % (auto) PT INR VBG pH VBG pCO2 VBG pO2 VBG HCO3 VBG O2 Saturation VBG Base Excess Sodium 137 Potassium 5.4 H Chloride 100 Carbon Dioxide 18 L Anion Gap 24 H BUN 43 H Creatinine 8.56 H* Estim Creat Clear Calc 9.1 Estimated GFR 6 Random Glucose 221 H Lactic Acid 3.0 H* Lactic Acid F/U @ 2Hr Calcium 9.2 Phosphorus Magnesium Total Bilirubin 0.6 AST 30 ALT 20 Alkaline Phosphatase 139 H Troponin I High Sens 59.2 H D Total Protein 7.8 Albumin 4.0 Urine Color RED Urine Appearance Turbid Urine pH 7.5 Ur Specific [place] 1.020 Urine Protein See Note Urine Glucose (UA) See Note Urine Ketones Negative Urine Blood Large (3+) H Urine Nitrite See Note Ur Leukocyte Esterase Large (3+) H Urine RBC >20 H Urine WBC 21-50 H Ur Squamous Epith Cells 0-2 Urine Bacteria 1+ Hyaline Casts 0-2 Stool Occult Blood Urine Opiates Screen Not Detected Ur Buprenorphine Scrn Not Detected Ur Oxycodone Screen Not Detected Urine Methadone Screen Not Detected Urine Fentanyl Screen Not Detected Ur Barbiturates Screen Not Detected Ur Phencyclidine Scrn Not Detected Ur Amphetamines Screen Not Detected U Benzodiazepines Scrn Not Detected Urine Cocaine Screen Not Detected U Marijuana (THC) Screen Not Detected Blood Type Antibody Screen 09/15/24 09/15/24 09/15/24 14:31 14:35 18:25 WBC RBC Hgb Hct MCV MCH MCHC RDW Plt Count MPV Immature Gran % (Auto) Neut % (Auto) Lymph % (Auto) [place] % (Auto) Eos % (Auto) Baso % (Auto) Lymph # (Auto) [place] # (Auto) Eos # (Auto) Baso # (Auto) Abs Immat Gran (auto) Absolute Neuts (auto) Absolute Nucleated RBC Nucleated RBC % (auto) PT INR VBG pH 7.57 H VBG pCO2 25 VBG pO2 45 VBG HCO3 23 VBG O2 Saturation 82.0 VBG Base Excess 2.5 Sodium 138 Potassium 3.1 L D Chloride 102 Carbon Dioxide 23 Anion Gap 16 BUN 13 Creatinine 3.01 H Estim Creat Clear Calc 26.0 Estimated GFR 21 Random Glucose 112 Lactic Acid Lactic Acid F/U @ 2Hr 1.6 Calcium 8.9 Phosphorus 2.7 Magnesium 1.9 Total Bilirubin AST ALT Alkaline Phosphatase Troponin I High Sens 177.7 H* D 354.2 H* D Total Protein Albumin Urine Color Urine Appearance Urine pH Ur Specific [place] Urine Protein Urine Glucose (UA) Urine Ketones Urine Blood Urine Nitrite Ur Leukocyte Esterase Urine RBC Urine WBC Ur Squamous Epith Cells Urine Bacteria Hyaline Casts Stool Occult Blood Urine Opiates Screen Ur Buprenorphine Scrn Ur Oxycodone Screen Urine Methadone Screen Urine Fentanyl Screen Ur Barbiturates Screen Ur Phencyclidine Scrn Ur Amphetamines Screen U Benzodiazepines Scrn Urine Cocaine Screen U Marijuana (THC) Screen Blood Type Antibody Screen 09/15/24 09/16/24 09/16/24 22:53 05:22 05:28 WBC 13.8 H RBC 2.90 L Hgb 9.4 L Hct 30.7 L MCV 105.9 H MCH 32.4 MCHC 30.6 L RDW 16.8 H Plt Count 249 MPV 10.6 Immature Gran % (Auto) 0.9 H Neut % (Auto) 85.0 H Lymph % (Auto) 4.6 L [place] % (Auto) 8.1 Eos % (Auto) 0.7 Baso % (Auto) 0.7 Lymph # (Auto) 0.6 L [place] # (Auto) 1.1 Eos # (Auto) 0.1 Baso # (Auto) 0.1 Abs Immat Gran (auto) 0.13 H Absolute Neuts (auto) 11.7 H Absolute Nucleated RBC 0.000 Nucleated RBC % (auto) 0.0 PT INR VBG pH 7.38 VBG pCO2 36 VBG pO2 58 VBG HCO3 22 VBG O2 Saturation 89.0 VBG Base Excess -2.1 Sodium 132 L Potassium 5.1 D Chloride 99 Carbon Dioxide 18 L Anion Gap 20 BUN 19 H Creatinine 4.68 H* Estim Creat Clear Calc 16.7 Estimated GFR 13 Random Glucose 130 H Lactic Acid Lactic Acid F/U @ 2Hr Calcium 9.1 Phosphorus 4.6 H Magnesium 2.0 Total Bilirubin AST ALT Alkaline Phosphatase Troponin I High Sens 366.5 H* Total Protein Albumin Urine Color Urine Appearance Urine pH Ur Specific [place] Urine Protein Urine Glucose (UA) Urine Ketones Urine Blood Urine Nitrite Ur Leukocyte Esterase Urine RBC Urine WBC Ur Squamous Epith Cells Urine Bacteria Hyaline Casts Stool Occult Blood Urine Opiates Screen Ur Buprenorphine Scrn Ur Oxycodone Screen Urine Methadone Screen Urine Fentanyl Screen Ur Barbiturates Screen Ur Phencyclidine Scrn Ur Amphetamines Screen U Benzodiazepines Scrn Urine Cocaine Screen U Marijuana (THC) Screen Blood Type Antibody Screen Procedures Date of Service Date of Service: 09/16/24 Assessment & Plan Time Spent With Patient Time: Total time managing care of this patient today ____ minutes. Progress Note: Quality Stroke Does the patient have a stroke diagnosis?: No
--- NOTE | 2024-09-16 08:49 | PM.EVENT ---
Event Note Date of Service: 09/16/24 Event Note: Pt seen and examined Pt had HD yesterday Intubated Can go for CT with IV contrast - Pt ESRD He will get HD within 24 hrs of IV contrast - I will arrange D/w ICU attending Thx Time Spent With Patient Time: Total time managing care of this patient today ____ minutes.
[2024-09-16] MEDS: Chlorhexidine Gluc Oral Rinse 15 ML MOUTHWASH BUCCAL (09:20)
--- NOTE | 2024-09-16 09:29 | MHC.CLN ---
PT MAY REQUIRE TF FOR NUTRITION SUPPORT R/T PROLONGED NPO STATUS CURRENTLY NPO IF TF NEEDED; RECOMMEND NEPRO TF AT MAX GOAL RATE 40ML/HR TO PROVIDE 1728KCALS (2006KCALS WITH SEDATION; 26KCALS/KG), 78G PROTEIN (1.0G/KG), 1256ML FFREE WATER FROM FORMULA MONITOR TOLERANCE AND LYTES SEE ALSO FULL CLINICAL NUTRITION ASSESSMENT
[2024-09-16] MEDS: dexmedeTOMIDidine HCL/NS 400 MCG/100 ML INFUS..BTL 22.1 MCG IVCONT ×2 (14:48→18:07)
--- NOTE | 2024-09-16 14:50 | MHC.SLORD ---
Speech Language Pathology Order Status: Received order for RESTAURANT C[employer]IN[employer] MANAGER consult. Per nursing staff, patient extubated couple hours ago. RESTAURANT C[employer]INARY MANAGER eval deferred 24 hours post-extubation.
[2024-09-16] MEDS: Acetaminophen 1,000 MG/100 ML PIGGYBACK 400 MG IV (14:53)
[2024-09-16 19:59] LABS: Albumin Level 3.8 g/dL (3.5-5.0); Anion Gap 23 (12-20); Blood Urea Nitrogen 26 mg/dL (9-16); Calcium 9.1 mg/dL (8.4-10.2); Carbon Dioxide 20 mmol/L (22-29); Chloride 97 mmol/L (96-108); Creatinine Clr Calc Pharmacy 13.6; Estimated Glomerular Filt Rate 10; Glucose Random 113 mg/dL (60-115); Magnesium 2.3 mg/dL (1.6-2.6); Phosphorus 6.1 mg/dL (2.7-4.5); Sodium 134 mmol/L (135-145)
--- NOTE | 2024-09-16 20:30 | PM.EVENT ---
Documented by User: Mimi Boateng NP 09/16/24 20:32 Event Note Date of Service: 09/16/24 Event Note: Patient K is 6, Bicarb 20, BUN 26, Creat 5.73, these findings communicated to on-call [facility] provider, Dr Lovett, who recommends Lokelma, no need for HD tonight Time Spent With Patient Time: Total time managing care of this patient today ____ minutes. Documented by User: Tammy Dee MD 09/17/24 07:31 Event Note Date of Service: 09/17/24
[2024-09-16] MEDS: Dextrose 50 % 25 GM/50 ML SYRINGE IVPUSH (21:38)
[2024-09-16] MEDS: Insulin Regular, Human 100 UNIT/ML 10 ML VIAL IVPUSH (21:38)
[2024-09-16] MEDS: dexmedeTOMIDidine HCL/NS 400 MCG/100 ML INFUS..BTL 13.26 MCG IVCONT (22:32)
[2024-09-17] VITALS (59 sets, daily range): BP systolic 67–151; BP diastolic 20–68; PULSE 68–119; RESP 15–34; TEMP 30.8–38.2; O2SAT 89–99; BMI 28.9
[2024-09-17 05:25] LABS: VBG Base Excess -6.6 mmol/L; VBG HCO3 21 mmol/L (22-26); VBG pCO2 56 mmHg; VBG pH 7.19 (7.32-7.43); VBG pO2 45 mmHg
[2024-09-17 05:33] LABS: MANUAL DIFF FLAG NO
[2024-09-17 05:33] LABS: Venous Blood Gas Refer to POC result
[2024-09-17 05:34] LABS: Basophils Absolute Auto 0.1 X10*3/uL (0.0-0.2); Basophils Percent Auto 0.4 % (0-2); Eosinophils Absolute Auto 0.1 X10*3/uL (0.0-0.4); Eosinophils Percent Auto 0.6 % (0-4); Hematocrit 34.7 % (42.0-52.0); Hemoglobin 10.5 g/dl (14.0-18.0); Imm Gran Abs Auto 0.19 X10*3/uL (0.00-0.03); Imm Gran Pct Auto 1.2 % (0.0-0.4); Lymphocytes Absolute Auto 0.9 X10*3/uL (1.2-4.9); Lymphocytes Percent Auto 5.4 % (20-40); Mean Corpuscular HGB Conc 30.3 g/dl (31.0-36.0); Mean Corpuscular Hemoglobin 32.3 pg (27.0-33.0); Mean Corpuscular Volume 106.8 fL (80.0-98.0); Mean Platelet Volume 10.4 fL (9.4-12.4); Monocytes Absolute Auto 1.4 X10*3/uL (0.1-1.2); Monocytes Percent Auto 9.1 % (2-11); Neutrophils Absolute Auto 13.1 x10*3/uL (2.0-8.3); Neutrophils Percent Auto 83.3 % (45-73); Platelet Count 251 X10*3/uL (160-400); Red Blood Count 3.25 X10*6/uL (4.60-5.80); Red Cell Distribution Width 16.4 % (11.0-16.0); White Blood Count 15.8 X10*3/uL (4.8-10.8)
[2024-09-17 06:03] LABS: Anion Gap 21 (12-20); Blood Urea Nitrogen 32 mg/dL (9-16); Calcium 9.5 mg/dL (8.4-10.2); Carbon Dioxide 18 mmol/L (22-29); Chloride 99 mmol/L (96-108); Creatinine Clr Calc Pharmacy 13.3; Estimated Glomerular Filt Rate 9; Glucose Random 103 mg/dL (60-115); Magnesium 2.3 mg/dL (1.6-2.6); Phosphorus 6.9 mg/dL (2.7-4.5); Potassium 6.1 mmol/L (3.3-5.1); Sodium 132 mmol/L (135-145)
--- NOTE | 2024-09-17 07:34 | CONS_ITS ---
DATE OF SERVICE: 09/16/2024 REASON FOR CONSULTATION: Consult requested by the medical team to evaluate and help in management of patient with end-stage renal disease who was being admitted with volume overload and hyperkalemia. The patient is not able to give any history as he is intubated and all the history was obtained from the patient's medical record. He has history of COPD, history of psychiatric comorbidities, ESRD on hemodialysis on Sunday, Sunday, Fridays with the last reported dialysis session on 09/12 and presented to the emergency room on 09/15 with obtundation. He was found to have acute respiratory failure and was intubated in the ED. Workup was significant for severe acidosis and hyperkalemia. The patient was initially admitted to the ICU and had dialysis yesterday, which was arranged by me. The patient at the present time has improved overall because of his acidosis. He continues to be on the vent. REVIEW OF SYSTEMS: Unobtainable. PAST MEDICAL HISTORY: Includes history of ESRD on hemodialysis, history of chronic paranoid schizophrenia, paranoid ideations, manager intermediate hypertension, history of COVID-19 infection in the past, GERD. SOCIAL HISTORY: Unavailable at the present time. MEDICATION ALLERGIES: Include allergies to trazodone. BODY AFTER ALLERGIES: HOME MEDICATIONS: Reviewed. PHYSICAL EXAMINATION: GENERAL: The patient is presently intubated and sedated. VITAL SIGNS: Blood pressure was 118/69, pulse 84, temperature 99.5 degree Fahrenheit. HEENT: Shows pupils are equal, round, and reactive bilaterally to light. No jugular venous distention is noted. NECK: Supple. CARDIOVASCULAR SYSTEM: S1, S2 without rub. RESPIRATORY SYSTEM: Mildly decreased in bases. No crepitation or rhonchi is noted. ABDOMEN: Soft, nontender. No guarding or rigidity. Obese. Bowel sounds normal. EXTREMITIES: Showed no edema. There is no peripheral cyanosis or clubbing. Labs done today. WBC 13.8, hemoglobin 9.4, hematocrit 30.7, platelets were 149. Sodium 132, potassium 5.1, chloride 99, CO2 of 18, BUN 19, creatinine 4.68. Lactic acid 3.0. Phosphorus 4.6, calcium 9.1. Troponin 366, it is highly sensitive. Urine tox screen was negative. IMPRESSION: 1. 64-year-old male with end-stage renal disease, on hemodialysis. 2. Missed dialysis treatment with volume overload. 3. Severe metabolic acidosis in the setting of missed dialysis treatment. 4. Respiratory failure, intubated. 5. Multiple psychiatric issues. RECOMMENDATIONS: At this juncture, the patient had dialysis yesterday and we will dialyze the patient again in a.m. We will remove fluid as tolerated. Cardiorespiratory support as per medical team. The patient received 1 dose of vancomycin and is on Zosyn at the present time. Antibiotic dosing and management as per ICU and pharmacy. I recommend dosing vancomycin post dialysis with followup Vanco levels. ICU attending discussed with me regarding getting a CAT scan with IV contrast and I agree with the plan and the patient will be dialyzed within 24 hours after receiving the contrast. Thank you for allowing me to participate in medical management of the patient. MD MELODY Santiago/KALYAN / [phone]
--- NOTE | 2024-09-17 07:34 | P.CDIM_ITS ---
PROVIDER RESPONSE TEXT: To clarify, the appropriate diagnosis supported by the clinical indicators: Acute respiratory failure with hypoxia QUERY TEXT: PHYSICIAN'S DOCUMENTATION REQUEST Date of Query: 09/17/2024 07:19 AM EST Patient Name: Narinder Lara Admit Date: 09/15/2024 Dear Tammy Dee MD, A review of the medical record indicates additional documentation may be needed. Please review below and update the documentation accordingly. Clinical Indicators: Orthopedic consultation note 09/15 - Assessment and Plan: Acute on chronic respiratory failure with hy poxia. Patient with COPD on 2-4 L NC. Intubated, mechanical vent, sedated, placed on BIPAP, pulse ox 90L, RR 30/36 ICU progress note within the written Plan 09/16: Acute respiratory failure, likely multifactorial d/t profound acidosis, pneumonia, COPD: Clarify which of the following accurately represents the acuity of the noted Respiratory failure with in the written Plan of your progress note: Possible options might include: Acute respiratory failure with hypoxia Acute on chronic respiratory failure with hypoxia possible, probable, suspected etc. Other (explain) Clinically unable to determine (explain) Thank you, Amparo Flores, CCS, CDIS Use of terms such as suspected, likely, concern for, or probable (associated with a specific diagnosi s that is being evaluated, monitored, or treated as if it exists) are acceptable and can be coded in the inpatient se tting, when documented at the time of discharge. Please use your independent medical judgment in providing your response. THIS QUERY IS PART OF THE PERMANENT MEDICAL RECORD
--- NOTE | 2024-09-17 07:54 | PM.CCPN ---
Subjective Subjective Date of Service: 09/17/24 Interval History: no significant overnight events; appreciable intermittent increased work of breathing, on/off BiPAP Critical Care Time (minutes): 60 Physical Exam Vital Signs: Vital Signs: Last Vital Signs Temp 100.6 F H 09/17/24 07:00 Pulse 78 09/17/24 07:00 Resp 23 H 09/17/24 07:00 BP 107/46 L 09/17/24 07:00 Pulse Ox 91 L 09/17/24 07:00 O2 Del Method BiPAP 09/17/24 07:00 O2 Flow Rate 5 09/17/24 05:00 FiO2 40 09/17/24 07:00 BMI result Body Mass Index 28.9 Const: Other: fatigued, though easily arousable w/ verbal stimulus General: cooperative, comfortable, no acute distress and well developed Orientation/consciousness: patient oriented x3 HEENT: Head: Yes normal to inspection and Yes atraumatic Eyes: General: appearance normal, both eyes and all related structures Neck: Neck: Yes normal visual inspection, Yes full ROM, Yes no meningeal signs, Yes trachea midline and Yes supple Chest: Chest palpation & inspection: normal inspection of the chest Resp: Other: some appreciable rhonchi; no overt rales, wheezing Effort & Inspection: normal respiratory effort Cardio: Rate: regular rate Rhythm: regular rhythm GI: Inspection: Yes normal to inspection, Yes Abdominal wall edema and Yes distended Skin: General skin exam: no rashes or lesions noted Neuro: General: patient oriented x3, tone normal, moves all extremities, no meningeal signs and no focal motor deficits Extrem: Other: appreciable 2+ pitting edema to bilateral shins General: Yes normal to inspection, Yes full ROM and Yes capillary refill normal Psych: Appearance: grossly normal Objective Data Labs 09/17/24 05:17 09/17/24 05:17 Labs: Laboratory Results - last 24 hr 09/16/24 09/17/24 09/17/24 19:32 05:13 05:17 WBC 15.8 H RBC 3.25 L Hgb 10.5 L Hct 34.7 L MCV 106.8 H MCH 32.3 MCHC 30.3 L RDW 16.4 H Plt Count 251 MPV 10.4 Immature Gran % (Auto) 1.2 H Neut % (Auto) 83.3 H Lymph % (Auto) 5.4 L [place] % (Auto) 9.1 Eos % (Auto) 0.6 Baso % (Auto) 0.4 Lymph # (Auto) 0.9 L [place] # (Auto) 1.4 H Eos # (Auto) 0.1 Baso # (Auto) 0.1 Abs Immat Gran (auto) 0.19 H Absolute Neuts (auto) 13.1 H Absolute Nucleated RBC 0.000 Nucleated RBC % (auto) 0.0 VBG pH 7.19 L* VBG pCO2 56 VBG pO2 45 VBG HCO3 21 L VBG O2 Saturation 69.0 VBG Base Excess -6.6 Sodium 134 L 132 L Potassium 6.0 H* 6.1 H* Chloride 97 99 Carbon Dioxide 20 L 18 L Anion Gap 23 H 21 H BUN 26 H 32 H Creatinine 5.73 H* 6.46 H* Estim Creat Clear Calc 13.6 13.3 Estimated GFR 10 9 Random Glucose 113 103 Calcium 9.1 9.5 Phosphorus 6.1 H 6.9 H Magnesium 2.3 2.3 Albumin 3.8 Microbiology Microbiology Results: Microbiology 09/15/24 12:10 Blood - Venous Blood Culture - Preliminary No growth after 24 hours. 09/15/24 11:03 Blood - Venous Blood Culture - Preliminary No growth after 24 hours. 09/15/24 Unknown Urine Catheterized - Canas Catheter Urine Culture - Final No growth. Progress Note: A&P Assessment and plan (1) Acute and chronic respiratory failure with hypoxia: Status: Acute (2) Pneumonia: Status: Acute (3) Emphysema of lung: Status: Acute Plan Patient is a 64 Y M w/ COPD on 2-4L NC, psychiatric comorbidities, and ESRD on hemodialysis M/W/F, last dialysis session reportedly 09/12, presenting to emergency department on 09/15 w/ obtundation, found to be in acute respiratory failure, intubated 09/15, extubated 09/16 N: intermittent agitation, on/off dexmedetomidine gtt CV: no acute issues; to closely monitor R: acute respiratory failure, likely multifactorial d/t profound acidosis, pneumonia, COPD/emphysema; intubated 09/15, extubated 09/16, on/off BiPAP GI: no acute issues; NPO while on BiPAP; speech/swallow evaluation : ESRD on hemodialyis M/W/F, emergent hemodialysis 09/15, appreciate nephrology recommendations; CT A/P demonstrating R hydronephrosis, possible hemorrhage, appreciate urology recommendations H: no acute issues; to avoid chemical DVT prophylaxis in setting of hemoureter; mechanical devices ID: c/f pneumonia, empiric vancomycin, zosyn; follow-up BCx 09/15 E: no acute issues; to monitor hypo-/hyper-glycemia P: no acute issues; paranoid schizophrenia Quality Stroke Does the patient have a stroke diagnosis?: No VTE Prior VTE?: No VTE Risk Level:: Medical - moderate - high VTE Device Contraindication: N/A - Device Ordered VTE Drug Contraindication: Treatment Not Tolerated
[2024-09-17] MEDS: Furosemide 20 MG/2 ML VIAL IVPUSH (08:47)
[2024-09-17] MEDS: Sodium Bicarbonate 8.4% 50 MEQ/50 ML SYRINGE IVPUSH (08:50)
--- NOTE | 2024-09-17 08:50 | PC.RT ---
Patient off bipap and placed on 6 lpm oxymask, jameson well, nurse aware.
[2024-09-17] MEDS: Calcium Gluconate/NaCl,Iso-Osm 1 GM/50 ML PLAST..BAG IV (09:05)
--- NOTE | 2024-09-17 09:15 | MHC.CLN ---
F/U PT IS DAY 2 NPO EXTUBATED YESTERDAY DIRECTOR EMBALMER FOLLOWING FOR DIET CONSISTENCY WHEN DIET TO ADVANCE, RECOMMEND 2GM NA LOW K+, LOW PHOS DIET R/T ESRD ON HD IN ADDITION TO DIRECTOR EMBALMER RECOMMENDATIONS FOLLOWING FOR DIET ADVANCEMENT
[2024-09-17] MEDS: Norepinephrine Bitartrate/D5W 8 MG/250 ML PLAST..BAG 24.69 MG IVCONT (10:26)
--- NOTE | 2024-09-17 11:24 | MHC.SLORD ---
Speech Language Pathology Order Status: Pt aphonic, confused, on high flow O2, RN consulted, pt will be placed on Bipap again. MACHINE OPERATIONS SUPERVISOR to assess when appropriate.
--- NOTE | 2024-09-17 12:13 | P.PNNP_ITS ---
Subjective Subjective Date of Service: 09/17/24 Interval history: no significant overnight events; appreciable intermittent increased work of breathing, on/off BiPAP Seen on HD now Physical Exam 2 Vital Signs: Vital Signs: Last Vital Signs Temp 99.5 F 09/17/24 11:00 Pulse 119 H 09/17/24 11:00 Resp 30 H 09/17/24 11:00 BP 117/68 09/17/24 11:00 Pulse Ox 89 L 09/17/24 11:00 O2 Del Method Oxymask 09/17/24 11:00 O2 Flow Rate 4 09/17/24 11:00 FiO2 40 09/17/24 08:00 BMI result Body Mass Index 28.9 Const: Other: fatigued, though easily arousable w/ verbal stimulus General: cooperative and well developed Orientation/consciousness: p atient oriented x3 HEENT: Head: Yes normal to inspection and Yes atraumatic Eyes: General: appearance normal, both eyes and all related structures Neck: Neck: Yes normal visual inspection, Yes full ROM, Yes no meningeal signs, Yes trachea midline and Yes supple Chest: Chest palpation & inspection: normal inspection of the chest Resp: Other: some appreciable rhonchi; no overt rales, wheezing Effort & Inspection: normal respiratory effort Cardio: Rate: regular rate Rhythm: regular rhythm GI: Inspection: Yes normal to inspection, Yes Abdominal wall edema and Yes distended Skin: General skin exam: no rashes or lesions noted Neuro: General: patient oriented x3, tone normal, moves all extremities, no meningeal signs and no focal motor deficits Extrem: Other: appreciable 2+ pitting edema to bilateral shins General: Yes normal to inspection, Yes full ROM and Yes capillary refill normal Psych: Appearance: grossly normal Objective Data Labs 09/17/24 05:17 09/17/24 05:17 Labs: Laboratory Results - last 24 hr 09/16/24 09/17/24 09/17/24 19:32 05:13 05:17 WBC 15.8 H RBC 3.25 L Hgb 10.5 L Hct 34.7 L MCV 106.8 H MCH 32.3 MCHC 30.3 L RDW 16.4 H Plt Count 251 MPV 10.4 Immature Gran % (Auto) 1.2 H Neut % (Auto) 83.3 H Lymph % (Auto) 5.4 L [place] % (Auto) 9.1 Eos % (Auto) 0.6 Baso % (Auto) 0.4 Lymph # (Auto) 0.9 L [place] # (Auto) 1.4 H Eos # (Auto) 0.1 Baso # (Auto) 0.1 Abs Immat Gran (auto) 0.19 H Absolute Neuts (auto) 13.1 H Absolute Nucleated RBC 0.000 Nucleated RBC % (auto) 0.0 VBG pH 7.19 L* VBG pCO2 56 VBG pO2 45 VBG HCO3 21 L VBG O2 Saturation 69.0 VBG Base Excess -6.6 Sodium 134 L 132 L Potassium 6.0 H* 6.1 H* Chloride 97 99 Carbon Dioxide 20 L 18 L Anion Gap 23 H 21 H BUN 26 H 32 H Creatinine 5.73 H* 6.46 H* Estim Creat Clear Calc 13.6 13.3 Estimated GFR 10 9 Random Glucose 113 103 Calcium 9.1 9.5 Phosphorus 6.1 H 6.9 H Magnesium 2.3 2.3 Albumin 3.8 Microbiology Microbiology Results: Microbiology 09/15/24 12:10 Blood - Venous Blood Culture - Preliminary No growth after 24 hours. 09/15/24 11:03 Blood - Venous Blood Culture - Preliminary No growth after 24 hours. 09/15/24 Unknown Urine Catheterized - Canas Catheter Urine Culture - Final No growth. Procedures Date of Service Date of Service: 09/17/24 Assessment & Plan Assessment and plan (1) End stage renal disease: Status: Acute (2) Respiratory failure: Status: Acute (3) Anemia: Status: Resolved Plan ESRD: mwf; on HD now usually has HD at [facility] via [facility] presented with respiratory failure and hyperkalemia adherence seems to be major factor in readmission REC -cont HD 3x/wk - Vol removal as tolerated - 3.5 L today - As he is clotting will add a total of 4000 units heparin with HD - No need for MAIRYA - PO 4 is better - 2 K bath - Low K diet when he eats - Fluid restriction 1200 ml -renal diet -dose medication for ESRD patient d/w ICU attending Time Spent With Patient Time: Total time managing care of this patient today ____ minutes. Progress Note: Quality Stroke Does the patient have a stroke diagnosis?: No
[2024-09-17 13:01] LABS: Influenza A PCR NEGATIVE (Negative); Influenza B PCR NEGATIVE (Negative); Resp Syncy Virus RNA Qual PCR NEGATIVE (Negative); SARS COV2 PCR INHOUSE NEGATIVE (Negative)
[2024-09-17 13:33] LABS: MRSA Nasal PCR NEGATIVE (Negative); SA Nasal PCR NEGATIVE (Negative)
--- NOTE | 2024-09-17 14:27 | W.MHC.ACPN ---
Advanced Care Planning Note Advanced Care Planning Note Discussed with: patient Time spent (in minutes): 30 Narrative: of note, patient alert, oriented to person, place, time, and situation; I discussed code status w/ Mr. Lara; when I asked Mr. Lara if he would want CPR in the event his heart were to stop, Mr. Lara responded no; of note, the hemodialysis nurse present during the conversation stated paperwork at the dialysis center documented Mr. Lara as a DNR; when I asked Mr. Lara if he would want a breathing tube in the event he had a harder time breathing, Mr. Lara responded no; when I asked if Mr. Lara would want BiPAP, Mr. Lara responded yes; when I asked Mr. Lara if we may place a central line for his blood pressure medication, Mr. Lara responded no; I asked Mr. Lara to elaborate on his answers, after which he said he has thought about these questions before and has been consistent in his thoughts surrounding these procedures; I discussed that it is recommended to have a central line placed given the amount of blood pressure medication he is requiring, after which Mr. Lara continued to respond no; I asked Mr. Lara to confirm his healthcare proxy, who he stated was Tyson Nunez, who is a professional who is acting as his healthcare proxy; I offered to call any loved ones, after which Mr. Lara responded no Problems Discussed (1) End stage renal disease: (2) Respiratory failure: (3) Anemia:
--- NOTE | 2024-09-17 15:17 | MHC.CM.PN ---
Pt continues on BiPAP and pressors for stablilization: had goals of care discussion w/pt who stated what care provisions he would allow. Pt accepting of BiPAP but does not want intubation or a central line to be placed. CM to follow for finalization of d/c plans: pt had been residing in a [facility] setting and attending outpt HD. Will call [facility] child care sitter when more details about his care decisions are known
[2024-09-17] MEDS: Norepinephrine Bitartrate/D5W 8 MG/250 ML PLAST..BAG 55.97 MG IVCONT (16:21)
[2024-09-17] MEDS: Hydrocortisone Sod Succ/PF 100 MG VIAL 50 MG IVPUSH ×2 (16:57→21:58)
[2024-09-17 18:35] LABS: Venous Blood Gas Refer to POC result
[2024-09-17 18:36] LABS: Basophils Absolute Auto 0.1 X10*3/uL (0.0-0.2); Basophils Percent Auto 0.5 % (0-2); Eosinophils Percent Auto 0.1 % (0-4); Hematocrit 32.3 % (42.0-52.0); Hemoglobin 10.2 g/dl (14.0-18.0); Imm Gran Abs Auto 0.44 X10*3/uL (0.00-0.03); Imm Gran Pct Auto 1.6 % (0.0-0.4); Lymphocytes Absolute Auto 0.5 X10*3/uL (1.2-4.9); Lymphocytes Percent Auto 1.9 % (20-40); MANUAL DIFF FLAG SCAN; Mean Corpuscular HGB Conc 31.6 g/dl (31.0-36.0); Mean Corpuscular Hemoglobin 33.4 pg (27.0-33.0); Mean Corpuscular Volume 105.9 fL (80.0-98.0); Mean Platelet Volume 10.1 fL (9.4-12.4); Monocytes Absolute Auto 1.3 X10*3/uL (0.1-1.2); Monocytes Percent Auto 4.6 % (2-11); Neutrophils Absolute Auto 25.1 x10*3/uL (2.0-8.3); Neutrophils Percent Auto 91.3 % (45-73); Platelet Count 376 X10*3/uL (160-400); Red Blood Count 3.05 X10*6/uL (4.60-5.80); Red Cell Distribution Width 16.5 % (11.0-16.0); SCAN SMEAR FLAG 1; White Blood Count 27.5 X10*3/uL (4.8-10.8)
[2024-09-17 18:36] LABS: VBG HCO3 18 mmol/L (22-26); VBG pCO2 42 mmHg; VBG pH 7.23 (7.32-7.43); VBG pO2 160 mmHg
[2024-09-17 18:47] LABS: Vancomycin Random 10.4 mcg/mL (15-20)
[2024-09-17 18:49] LABS: Lactic Acid 0.7 mmol/L (0.5-2.0)
[2024-09-17 18:50] LABS: Anion Gap 21 (12-20); Blood Urea Nitrogen 17 mg/dL (9-16); Carbon Dioxide 19 mmol/L (22-29); Chloride 95 mmol/L (96-108); Creatinine Clr Calc Pharmacy 23.7; Estimated Glomerular Filt Rate 17; Glucose Random 176 mg/dL (60-115); Magnesium 2.1 mg/dL (1.6-2.6); Phosphorus 5.8 mg/dL (2.7-4.5); Potassium 4.5 mmol/L (3.3-5.1); Sodium 130 mmol/L (135-145)
--- NOTE | 2024-09-17 18:52 | HE.PHANOTE ---
Re: [facility] pt on MWF. Trough returned at 10.4, one time dose of 500mg given today. Next trough 09/19 @1800 after dialysis.
[2024-09-17 19:02] LABS: SLIDE REVIEW VERIFIED
[2024-09-17 19:10] LABS: TSH reflex Free T4 0.93 uIU/mL (0.32-4.0)
[2024-09-17] MEDS: vancomycin HCL 500 MG in 0.9 % Sodium Chloride 100 ML 110 MG IV (19:17)
[2024-09-17] MEDS: Norepinephrine Bitartrate/NS 32 MG/250 ML PLAST..BAG 19.83 MG IVCONT (20:21)
--- NOTE | 2024-09-17 20:21 | W.PM.CCHP ---
Procedures Date of Service Date of Service: 09/17/24 Central Line Placement Left IJ: Central Line Comments: Patient has significant amount of vasopressor support, requiring central line access. Left internal jugular triple-lumen central venous catheter placed under usual sterile conditions, with ultrasound guidance for appropriate vascular access without immediate complications. Central line position verified with chest x-ray Consent for Procedure: Elective - informed consent obtained Time out performed: Yes Sterile Technique Used: Yes Patient placed on monitor/pulse ox: No MD prep: mask, gown and gloves Central line prep: Chlorhexidine scrub Local anesthesia used: lidocaine 2% Amount of anesthesia used (ml): 1 Ultrasound used for placement: Yes Central line lumen inserted: triple Post procedure: sutured in place, good blood return, all ports aspirated, flushed, capped and sterile dressing applied Post procedure x-ray: tip of catheter in good position and no pneumothorax seen Patient tolerated procedure: well and no complications Complications: none
[2024-09-17] MEDS: Sodium Bicarbonate 8.4% 150 MEQ in Dextrose 5 % 850 ML 50 MEQ IV (20:24)
[2024-09-17] MEDS: Midazolam HCl 2 MG/2 ML VIAL 1 MG IVPUSH (20:24)
[2024-09-17 23:54] LABS: VBG Base Excess -5.5 mmol/L; VBG HCO3 22 mmol/L (22-26); VBG pCO2 52 mmHg; VBG pH 7.23 (7.32-7.43); VBG pO2 50 mmHg
[2024-09-18] VITALS (49 sets, daily range): BP systolic 68–148; BP diastolic 39–113; PULSE 70–113; RESP 11–29; TEMP 36.4–36.7; O2SAT 86–98; BMI 28.9
[2024-09-18] MEDS: Hydrocortisone Sod Succ/PF 100 MG VIAL 50 MG IVPUSH ×4 (03:53→22:09)
[2024-09-18 05:27] LABS: Venous Blood Gas Refer to POC result
[2024-09-18 05:45] LABS: Basophils Percent Auto 0.2 % (0-2); Hematocrit 28.9 % (42.0-52.0); Hemoglobin 9.2 g/dl (14.0-18.0); Imm Gran Abs Auto 0.18 X10*3/uL (0.00-0.03); Imm Gran Pct Auto 1.1 % (0.0-0.4); Lymphocytes Absolute Auto 0.5 X10*3/uL (1.2-4.9); Lymphocytes Percent Auto 3.1 % (20-40); MANUAL DIFF FLAG SCAN; Mean Corpuscular HGB Conc 31.8 g/dl (31.0-36.0); Mean Corpuscular Hemoglobin 32.5 pg (27.0-33.0); Mean Corpuscular Volume 102.1 fL (80.0-98.0); Mean Platelet Volume 9.8 fL (9.4-12.4); Monocytes Absolute Auto 0.7 X10*3/uL (0.1-1.2); Monocytes Percent Auto 4.2 % (2-11); Neutrophils Absolute Auto 14.7 x10*3/uL (2.0-8.3); Neutrophils Percent Auto 91.4 % (45-73); Platelet Count 310 X10*3/uL (160-400); Red Blood Count 2.83 X10*6/uL (4.60-5.80); Red Cell Distribution Width 16.4 % (11.0-16.0); SCAN SMEAR FLAG 1; White Blood Count 16.1 X10*3/uL (4.8-10.8)
[2024-09-18 05:46] LABS: VBG HCO3 25 mmol/L (22-26); VBG pCO2 54 mmHg; VBG pH 7.27 (7.32-7.43); VBG pO2 47 mmHg
[2024-09-18 05:53] LABS: Venous Blood Gas Refer to POC result
[2024-09-18 06:01] LABS: Anion Gap 19 (12-20); Blood Urea Nitrogen 32 mg/dL (9-16); Calcium 9.8 mg/dL (8.4-10.2); Carbon Dioxide 22 mmol/L (22-29); Chloride 95 mmol/L (96-108); Creatinine Clr Calc Pharmacy 17.6; Estimated Glomerular Filt Rate 12; Glucose Random 162 mg/dL (60-115); Magnesium 2.2 mg/dL (1.6-2.6); Phosphorus 6.1 mg/dL (2.7-4.5); Potassium 4.3 mmol/L (3.3-5.1); Sodium 132 mmol/L (135-145)
[2024-09-18 06:09] LABS: SLIDE REVIEW VERIFIED
--- NOTE | 2024-09-18 08:16 | P.PNCC_ITS ---
Subjective Subjective Date of Service: 09/18/24 Interval History: no significant overnight events Critical Care Time (minutes): 60 Physical Exam 2 Vital Signs: Vital Signs: Last Vital Signs Temp 97.9 F 09/18/24 04:59 Pulse 87 09/18/24 07:30 Resp 24 H 09/18/24 07:47 BP 131/58 L 09/18/24 07:30 Pulse Ox 92 09/18/24 06:00 O2 Del Method Oxymask 09/18/24 06:00 O2 Flow Rate 5 09/18/24 06:00 FiO2 40 09/18/24 01:59 BMI result Body Mass Index 28.9 Const: General: cooperative, healthy appearing, comfortable, no acute distress, well developed, alert, awake and Physically active O rientation/consciousness: patient oriented x3 HEENT: Head: Yes normal to inspection, Yes normocephalic and Yes atraumatic Eyes: General: appearance normal, both eyes and all related structures Neck: Neck: Yes normal visual inspection, Yes full ROM, Yes no meningeal signs, Yes trachea midline and Yes supple Chest: Chest palpation & inspection: normal inspection of the chest Resp: Other: diminished breath sounds throughout; no appreciable overt rales, rhonchi, wheezing Cardio: Rate: tachycardic Rhythm: abnormal rhythm GI: Inspection: Yes normal to inspection, No Abdominal wall edema and No distended Palpation (GI): Soft to palpation, not firm, nontender, no guarding and not rigid Skin: General skin exam: no rashes or lesions noted Neuro: General: patient oriented x3, tone normal, moves all extremities, no meningeal signs and no focal motor deficits Extrem: General: Yes normal to inspection, Yes full ROM, Yes capillary refill normal and Yes no clubbing, cyanosis or edema Psych: Appearance: grossly normal Objective Data Labs 09/18/24 05:32 09/18/24 05:32 Labs: Laboratory Results - last 24 hr 09/17/24 09/17/24 09/17/24 11:54 11:55 18:23 WBC 27.5 H RBC 3.05 L Hgb 10.2 L Hct 32.3 L MCV 105.9 H MCH 33.4 H MCHC 31.6 RDW 16.5 H Plt Count 376 D MPV 10.1 Immature Gran % (Auto) 1.6 H Neut % (Auto) 91.3 H Lymph % (Auto) 1.9 L [place] % (Auto) 4.6 Eos % (Auto) 0.1 Baso % (Auto) 0.5 Lymph # (Auto) 0.5 L [place] # (Auto) 1.3 H Eos # (Auto) 0.0 Baso # (Auto) 0.1 Abs Immat Gran (auto) 0.44 H Absolute Neuts (auto) 25.1 H Absolute Nucleated RBC 0.000 Nucleated RBC % (auto) 0.0 Smear Tech's Comments VERIFIED VBG pH VBG pCO2 VBG pO2 VBG HCO3 VBG O2 Saturation VBG Base Excess Sodium 130 L Potassium 4.5 D Chloride 95 L Carbon Dioxide 19 L Anion Gap 21 H BUN 17 H Creatinine 3.63 H Estim Creat Clear Calc 23.7 Estimated GFR 17 Random Glucose 176 H Lactic Acid 0.7 Calcium 9.0 Phosphorus 5.8 H Magnesium 2.1 TSH 0.93 Nasal Screen MRSA (PCR) NEGATIVE Nasal S. aureus Screen NEGATIVE Nasal MRSA/S.aureus Interp SEE NOTE Random Vancomycin 10.4 L Influenza Type A (PCR) NEGATIVE Influenza Type B (PCR) NEGATIVE RSV RNA Qual (PCR) NEGATIVE SARS-CoV-2 RNA (RT-PCR) NEGATIVE 09/17/24 09/17/24 09/18/24 18:29 23:43 05:32 WBC 16.1 H RBC 2.83 L Hgb 9.2 L Hct 28.9 L MCV 102.1 H MCH 32.5 MCHC 31.8 RDW 16.4 H Plt Count 310 MPV 9.8 Immature Gran % (Auto) 1.1 H Neut % (Auto) 91.4 H Lymph % (Auto) 3.1 L [place] % (Auto) 4.2 Eos % (Auto) 0.0 Baso % (Auto) 0.2 Lymph # (Auto) 0.5 L [place] # (Auto) 0.7 Eos # (Auto) 0.0 Baso # (Auto) 0.0 Abs Immat Gran (auto) 0.18 H Absolute Neuts (auto) 14.7 H Absolute Nucleated RBC 0.000 Nucleated RBC % (auto) 0.0 Smear Tech's Comments VERIFIED VBG pH 7.23 L 7.23 L VBG pCO2 42 52 VBG pO2 160 50 VBG HCO3 18 L 22 VBG O2 Saturation 100.0 82.0 VBG Base Excess -9.0 -5.5 Sodium 132 L Potassium 4.3 Chloride 95 L Carbon Dioxide 22 Anion Gap 19 BUN 32 H Creatinine 4.89 H* Estim Creat Clear Calc 17.6 Estimated GFR 12 Random Glucose 162 H Lactic Acid Calcium 9.8 D Phosphorus 6.1 H Magnesium 2.2 TSH Nasal Screen MRSA (PCR) Nasal S. aureus Screen Nasal MRSA/S.aureus Interp Random Vancomycin Influenza Type A (PCR) Influenza Type B (PCR) RSV RNA Qual (PCR) SARS-CoV-2 RNA (RT-PCR) 09/18/24 05:35 WBC RBC Hgb Hct MCV MCH MCHC RDW Plt Count MPV Immature Gran % (Auto) Neut % (Auto) Lymph % (Auto) [place] % (Auto) Eos % (Auto) Baso % (Auto) Lymph # (Auto) [place] # (Auto) Eos # (Auto) Baso # (Auto) Abs Immat Gran (auto) Absolute Neuts (auto) Absolute Nucleated RBC Nucleated RBC % (auto) Smear Tech's Comments VBG pH 7.27 L VBG pCO2 54 VBG pO2 47 VBG HCO3 25 VBG O2 Saturation 77.0 VBG Base Excess -2.0 Sodium Potassium Chloride Carbon Dioxide Anion Gap BUN Creatinine Estim Creat Clear Calc Estimated GFR Random Glucose Lactic Acid Calcium Phosphorus Magnesium TSH Nasal Screen MRSA (PCR) Nasal S. aureus Screen Nasal MRSA/S.aureus Interp Random Vancomycin Influenza Type A (PCR) Influenza Type B (PCR) RSV RNA Qual (PCR) SARS-CoV-2 RNA (RT-PCR) Microbiology Microbiology Results: Microbiology 09/15/24 12:10 Blood - Venous Blood Culture - Preliminary No growth after 48 hours. 09/15/24 11:03 Blood - Venous Blood Culture - Preliminary No growth after 48 hours. 09/15/24 Unknown Urine Catheterized - Canas Catheter Urine Culture - Final No growth. Progress Note: A&P Assessment and plan (1) Respiratory failure: Status: Acute (2) Pneumonia: Status: Acute (3) COPD (chronic obstructive pulmonary disease): Status: Acute (4) Emphysema of lung: Status: Acute (5) End stage renal disease: Status: Acute Plan Patient is a 64 Y M w/ COPD on 2-4L NC, psychiatric comorbidities, and ESRD on hemodialysis M/W/F, last dialysis session reportedly 09/12, presenting to emergency department on 09/15 w/ obtundation, found to be in acute respiratory failure, intubated 09/15, extubated 09/16 N: no acute issues CV: hypotension, likely multi-factorial, d/t sepsis, hemodialysis; norepinephrine gtt, wean as tolerated; of note, patient on midodrine at home, to resume R: acute respiratory failure, likely multifactorial d/t profound acidosis, pneumonia, COPD/emphysema; intubated 09/15, extubated 09/16, on/off BiPAP GI: no acute issues; NPO while on BiPAP; follow-up speech/swallow evaluation : ESRD on hemodialyis M/W/F, hemodialysis 09/15, 09/17, appreciate nephrology recommendations; CT A/P demonstrating R hydronephrosis, possible hemorrhage, appreciate urology recommendations H: no acute issues; mechanical devices ID: c/f pneumonia, empiric vancomycin, zosyn; follow-up BCx 09/15 E: no acute issues; to monitor hypo-/hyper-glycemia P: no acute issues; paranoid schizophrenia Quality Stroke Does the patient have a stroke diagnosis?: No VTE Prior VTE?: No VTE Risk Level:: Medical - moderate - high VTE Device Contraindication: N/A - Device Ordered VTE Drug Contraindication: N/A - Med Ordered
--- NOTE | 2024-09-18 09:14 | W.MHC.ACPN ---
Advanced Care Planning Note Advanced Care Planning Note Discussed with: patient and surrogate Time spent (in minutes): 30 Narrative: of note, I evaluated Mr. Lara at the bedside this morning; Mr. Lara was alert, oriented to person, place, time, and situation; I re-visted our discussion re: goals of care; I asked if Mr. Lara recalled our conversation yesterday, after which he responded yes; I said, to clarify, that Mr. Lara would not want chest compressions in the event his heart were to stop beating, after which Mr. Lara responded that he did not want to ; I asked him to elaborate on his answer; however, I was unable to get a definitive answer from Mr. Lara; we had a similar conversation regarding intubation; I believe Mr. Lara has capacity at this current time; moreover, I discussed with case management, who spoke with Mr. Lara's healthcare proxy, who also reports that Mr. Lara has made decisions regarding his own goals of care up until this current time; given the vagueness of Mr. Lara's answers, Mr. Lara's code status was changed back to full code Problems Discussed (1) Respiratory failure: (2) Pneumonia: (3) COPD (chronic obstructive pulmonary disease): (4) Emphysema of lung: (5) End stage renal disease:
--- NOTE | 2024-09-18 09:27 | MHC.SLORD ---
Speech Language Pathology Order Status: Attempted to see patient for bedside swallow eval. Per RN switched from Oxymask to NC to allow access to mouth for feeding. Patient hacking, but stating he had nothing to spit up, 02 desat to 79-80. Patient not appropriate for PO trials at this time. Notified MD, RN, RD. Per RN, patient likely to be started on TPN.
[2024-09-18] MEDS: 0.9 % Sodium Chloride Flush 3 ML SYRINGE IVFLUSH ×3 (09:36→22:10)
--- NOTE | 2024-09-18 09:51 | MHC.CLN ---
RE; CONSULT PT REQUIRES TPN FOR NUTRITION SUPPORT R/T PROLONGED NPO STATUS PT IS DAY 3 NPO GRAIN AND YEAST PLANTS SUPERVISOR CHANG RECOMMENDS NPO CONTINUE TPN TO START; PT WITH CENTRAL LINE RECOMMEND TPN AT 40ML/HR TO PROVIDE 682KCALS, 144G DEXTROSE, 48G PROTEIN REPLETE LYTES NEEDED DISCUSSED WITH PHARMACY AND MD SEE ALSO FULL CLINICAL NUTRITION ASSESSMENT
--- NOTE | 2024-09-18 12:38 | MHC.CM.PN ---
Pt continues care in ICU: triple lumen placed last evening for pressor administration: pt now opting for more aggressive care and code status changed to full. Pt will likely require STR w/outpt HD upon d/c. Referrals made - pt states his hope is to return to home. CM to follow.
--- NOTE | 2024-09-18 15:49 | P.PNNP_ITS ---
Subjective Subjective Date of Service: 09/18/24 Interval history: pt seen and examined in ICU on dialysis Physical Exam 2 Vital Signs: Vital Signs: Last Vital Signs Temp 98.0 F 09/18/24 12:00 Pulse 92 09/18/24 14:56 Resp 19 09/18/24 14:56 BP 100/61 09/18/24 14:56 Pulse Ox 92 09/18/24 14:56 O2 Del Method Oxymask 09/18/24 14:56 O2 Flow Rate 5 09/18/24 14:56 FiO2 40 09/18/24 01:59 BMI result Body Mass Index 28.9 o/e- awake, on o2 mask cvs: s1s2 Rs; cta Abd; soft Objective Data Labs 09/18/24 05:32 09/18/24 18:14 Labs: Laboratory Results - last 24 hr 09/17/24 09/17/24 09/17/24 18:23 18:29 23:43 WBC 27.5 H RBC 3.05 L Hgb 10.2 L Hct 32.3 L MCV 105.9 H MCH 33.4 H MCHC 31.6 RDW 16.5 H Plt Count 376 D MPV 10.1 Immature Gran % (Auto) 1.6 H Neut % (Auto) 91.3 H Lymph % (Auto) 1.9 L [place] % (Auto) 4.6 Eos % (Auto) 0.1 Baso % (Auto) 0.5 Lymph # (Auto) 0.5 L [place] # (Auto) 1.3 H Eos # (Auto) 0.0 Baso # (Auto) 0.1 Abs Immat Gran (auto) 0.44 H Absolute Neuts (auto) 25.1 H Absolute Nucleated RBC 0.000 Nucleated RBC % (auto) 0.0 Smear Tech's Comments VERIFIED VBG pH 7.23 L 7.23 L VBG pCO2 42 52 VBG pO2 160 50 VBG HCO3 18 L 22 VBG O2 Saturation 100.0 82.0 VBG Base Excess -9.0 -5.5 Sodium 130 L Potassium 4.5 D Chloride 95 L Carbon Dioxide 19 L Anion Gap 21 H BUN 17 H Creatinine 3.63 H Estim Creat Clear Calc 23.7 Estimated GFR 17 Random Glucose 176 H Lactic Acid 0.7 Calcium 9.0 Phosphorus 5.8 H Magnesium 2.1 TSH 0.93 Random Vancomycin 10.4 L 09/18/24 09/18/24 05:32 05:35 WBC 16.1 H RBC 2.83 L Hgb 9.2 L Hct 28.9 L MCV 102.1 H MCH 32.5 MCHC 31.8 RDW 16.4 H Plt Count 310 MPV 9.8 Immature Gran % (Auto) 1.1 H Neut % (Auto) 91.4 H Lymph % (Auto) 3.1 L [place] % (Auto) 4.2 Eos % (Auto) 0.0 Baso % (Auto) 0.2 Lymph # (Auto) 0.5 L [place] # (Auto) 0.7 Eos # (Auto) 0.0 Baso # (Auto) 0.0 Abs Immat Gran (auto) 0.18 H Absolute Neuts (auto) 14.7 H Absolute Nucleated RBC 0.000 Nucleated RBC % (auto) 0.0 Smear Tech's Comments VERIFIED VBG pH 7.27 L VBG pCO2 54 VBG pO2 47 VBG HCO3 25 VBG O2 Saturation 77.0 VBG Base Excess -2.0 Sodium 132 L Potassium 4.3 Chloride 95 L Carbon Dioxide 22 Anion Gap 19 BUN 32 H Creatinine 4.89 H* Estim Creat Clear Calc 17.6 Estimated GFR 12 Random Glucose 162 H Lactic Acid Calcium 9.8 D Phosphorus 6.1 H Magnesium 2.2 TSH Random Vancomycin Microbiology Microbiology Results: Microbiology 09/15/24 12:10 Blood - Venous Blood Culture - Preliminary No growth after 48 hours. 09/15/24 11:03 Blood - Venous Blood Culture - Preliminary No growth after 48 hours. 09/15/24 Unknown Urine Catheterized - Canas Catheter Urine Culture - Final No growth. Procedures Date of Service Date of Service: 09/18/24 Assessment & Plan Assessment and plan (1) Pneumonia: Status: Acute (2) End stage renal disease: Status: Acute Plan ESRD: mwf; on HD now- for extra session due to acidemia usually has HD at [facility] [place] dialysis unit via [facility] presented with respiratory failure due to pneumonia and hyperkalemia REC -cont HD 3x/wk - Vol removal as tolerated - - As he is clotting will add a total of 4000 units heparin with HD - No need for MARIYA - PO 4 is better - 2 K bath - Low K diet when he eats - Fluid restriction 1200 ml -renal diet -dose medication for ESRD patient d/w ICU attending Time Spent With Patient Time: Total time managing care of this patient today ____ minutes. Progress Note: Quality Stroke Does the patient have a stroke diagnosis?: No
[2024-09-18] MEDS: Piperacillin Sodium/Tazobactam 4.5 GM in 0.9 % Sodium Chloride 100 ML IV (18:07)
[2024-09-18 18:27] LABS: VBG Base Excess -4.4 mmol/L; VBG HCO3 26 mmol/L (22-26); VBG pCO2 77 mmHg; VBG pH 7.13 (7.32-7.43); VBG pO2 57 mmHg
[2024-09-18 18:28] LABS: Venous Blood Gas Refer to POC result
[2024-09-18] MEDS: Sodium Bicarbonate 8.4% 150 MEQ in Dextrose 5 % 850 ML 50 MEQ IV (19:03)
[2024-09-18 19:36] LABS: Anion Gap 19 (12-20); Blood Urea Nitrogen 15 mg/dL (9-16); Calcium 9.3 mg/dL (8.4-10.2); Carbon Dioxide 22 mmol/L (22-29); Chloride 97 mmol/L (96-108); Creatinine Clr Calc Pharmacy 35.6; Estimated Glomerular Filt Rate 27; Glucose Random 140 mg/dL (60-115); Magnesium 1.9 mg/dL (1.6-2.6); Phosphorus 4.7 mg/dL (2.7-4.5); Potassium 3.6 mmol/L (3.3-5.1); Sodium 134 mmol/L (135-145)
[2024-09-18] MEDS: Midazolam HCl 2 MG/2 ML VIAL 1 MG IVPUSH (20:26)
[2024-09-18] MEDS: Norepinephrine Bitartrate/NS 32 MG/250 ML PLAST..BAG 6.61 MG IVCONT (20:28)
[2024-09-18] MEDS: Parenteral Nutrition 960 ML 40 ML IV (20:43)
[2024-09-19] VITALS (42 sets, daily range): BP systolic 79–151; BP diastolic 40–73; PULSE 49–96; RESP 12–27; TEMP 36.2–37.2; O2SAT 88–97; BMI 26.8
[2024-09-19] MEDS: Heparin Sodium,Porcine 5,000 UNIT/ML VIAL 5000 UNIT SUBCUT ×3 (00:40→17:13)
[2024-09-19 02:06] LABS: VBG Base Excess -0.2 mmol/L; VBG HCO3 27 mmol/L (22-26); VBG pCO2 61 mmHg; VBG pH 7.26 (7.32-7.43); VBG pO2 54 mmHg
[2024-09-19 02:28] LABS: Venous Blood Gas Refer to POC result
[2024-09-19 04:56] LABS: VBG Base Excess 1.6 mmol/L; VBG HCO3 29 mmol/L (22-26); VBG pCO2 59 mmHg; VBG pH 7.29 (7.32-7.43); VBG pO2 51 mmHg
[2024-09-19 04:57] LABS: Venous Blood Gas Refer to POC result
[2024-09-19 05:10] LABS: MANUAL DIFF FLAG NO
[2024-09-19 05:12] LABS: Basophils Percent Auto 0.1 % (0-2); Eosinophils Percent Auto 0.1 % (0-4); Hematocrit 28.7 % (42.0-52.0); Imm Gran Abs Auto 0.13 X10*3/uL (0.00-0.03); Imm Gran Pct Auto 0.8 % (0.0-0.4); Lymphocytes Absolute Auto 0.6 X10*3/uL (1.2-4.9); Lymphocytes Percent Auto 3.5 % (20-40); Mean Corpuscular HGB Conc 31.4 g/dl (31.0-36.0); Mean Corpuscular Hemoglobin 31.6 pg (27.0-33.0); Mean Corpuscular Volume 100.7 fL (80.0-98.0); Mean Platelet Volume 9.8 fL (9.4-12.4); Monocytes Percent Auto 6.5 % (2-11); Neutrophils Absolute Auto 13.9 x10*3/uL (2.0-8.3); Platelet Count 349 X10*3/uL (160-400); Red Blood Count 2.85 X10*6/uL (4.60-5.80); Red Cell Distribution Width 16.1 % (11.0-16.0); White Blood Count 15.6 X10*3/uL (4.8-10.8)
[2024-09-19] MEDS: Piperacillin Sodium/Tazobactam 4.5 GM in 0.9 % Sodium Chloride 100 ML IV ×2 (05:14→17:14)
[2024-09-19] MEDS: Hydrocortisone Sod Succ/PF 100 MG VIAL 50 MG IVPUSH ×3 (05:14→15:17)
[2024-09-19 05:28] LABS: Albumin Level 3.5 g/dL (3.5-5.0); Anion Gap 17 (12-20); Blood Urea Nitrogen 33 mg/dL (9-16); Carbon Dioxide 26 mmol/L (22-29); Chloride 96 mmol/L (96-108); Creatinine Clr Calc Pharmacy 23.8; Estimated Glomerular Filt Rate 17; Glucose Random 212 mg/dL (60-115); Magnesium 2.3 mg/dL (1.6-2.6); Phosphorus 4.6 mg/dL (2.7-4.5); Potassium 3.2 mmol/L (3.3-5.1); Sodium 136 mmol/L (135-145); Triglycerides 227 mg/dL (<150)
[2024-09-19] MEDS: 0.9 % Sodium Chloride Flush 3 ML SYRINGE IVFLUSH ×2 (07:25→15:17)
[2024-09-19] MEDS: Potassium Chloride/H20 20 MEQ/100 ML PIGGYBACK 100 MEQ IV (07:25)
--- NOTE | 2024-09-19 07:56 | P.PNCC_ITS ---
Subjective Subjective Date of Service: 09/19/24 Interval History: no significant overnight events; appreciable respiratory acidosis 09/18 PM, placed on BiPAP w/ improvement Critical Care Time (minutes): 60 Physical Exam 2 Vital Signs: Vital Signs: Last Vital Signs Temp 98.9 F 09/19/24 04:00 Pulse 71 09/19/24 07:24 Resp 16 09/19/24 07:00 BP 103/46 L 09/19/24 07:24 Pulse Ox 94 09/19/24 07:00 O2 Del Method BiPAP 09/19/24 07:00 O2 Flow Rate 4 09/18/24 18:00 FiO2 40 09/19/24 07:28 BMI result Body Mass Index 26.8 Const: General: cooperative, healthy appearing, comfortable, no acute distress, well developed, alert, awake and Physically active O rientation/consciousness: patient oriented x3 HEENT: Head: Yes normal to inspection, Yes normocephalic and Yes atraumatic Eyes: General: appearance normal, both eyes and all related structures Neck: Neck: Yes normal visual inspection, Yes full ROM, Yes no meningeal signs, Yes trachea midline and Yes supple Chest: Chest palpation & inspection: normal inspection of the chest Resp: Other: no overt rales, rhonchi, wheezing Effort & Inspection: normal respiratory effort Cardio: Rate: regular rate Rhythm: regular rhythm GI: Inspection: Yes normal to inspection, No Abdominal wall edema and No distended Palpation (GI): Soft to palpation, not firm, nontender, no guarding and not rigid Skin: General skin exam: no rashes or lesions noted Neuro: General: patient oriented x3, moves all extremities, no meningeal signs and no focal motor deficits Extrem: Other: appreciable trace pitting edema to bilateral shins General: Yes normal to inspection, Yes full ROM and Yes capillary refill normal Psych: Appearance: grossly normal Objective Data Labs 09/19/24 04:52 09/19/24 04:52 Labs: Laboratory Results - last 24 hr 09/18/24 09/18/24 09/19/24 18:14 18:17 01:55 WBC RBC Hgb Hct MCV MCH MCHC RDW Plt Count MPV Immature Gran % (Auto) Neut % (Auto) Lymph % (Auto) [place] % (Auto) Eos % (Auto) Baso % (Auto) Lymph # (Auto) [place] # (Auto) Eos # (Auto) Baso # (Auto) Abs Immat Gran (auto) Absolute Neuts (auto) Absolute Nucleated RBC Nucleated RBC % (auto) VBG pH 7.13 L* 7.26 L VBG pCO2 77 61 VBG pO2 57 54 VBG HCO3 26 27 H VBG O2 Saturation 82.0 84.0 VBG Base Excess -4.4 -0.2 Sodium 134 L Potassium 3.6 Chloride 97 Carbon Dioxide 22 Anion Gap 19 BUN 15 Creatinine 2.42 H Estim Creat Clear Calc 35.6 Estimated GFR 27 Random Glucose 140 H Calcium 9.3 Phosphorus 4.7 H Magnesium 1.9 Albumin Triglycerides 09/19/24 09/19/24 04:46 04:52 WBC 15.6 H RBC 2.85 L Hgb 9.0 L Hct 28.7 L MCV 100.7 H MCH 31.6 MCHC 31.4 RDW 16.1 H Plt Count 349 MPV 9.8 Immature Gran % (Auto) 0.8 H Neut % (Auto) 89.0 H Lymph % (Auto) 3.5 L [place] % (Auto) 6.5 Eos % (Auto) 0.1 Baso % (Auto) 0.1 Lymph # (Auto) 0.6 L [place] # (Auto) 1.0 Eos # (Auto) 0.0 Baso # (Auto) 0.0 Abs Immat Gran (auto) 0.13 H Absolute Neuts (auto) 13.9 H Absolute Nucleated RBC 0.000 Nucleated RBC % (auto) 0.0 VBG pH 7.29 L VBG pCO2 59 VBG pO2 51 VBG HCO3 29 H VBG O2 Saturation 80.0 VBG Base Excess 1.6 Sodium 136 Potassium 3.2 L Chloride 96 Carbon Dioxide 26 Anion Gap 17 BUN 33 H Creatinine 3.62 H Estim Creat Clear Calc 23.8 Estimated GFR 17 Random Glucose 212 H Calcium 10.0 D Phosphorus 4.6 H Magnesium 2.3 Albumin 3.5 Triglycerides 227 H Microbiology Microbiology Results: Microbiology 09/15/24 12:10 Blood - Venous Blood Culture - Preliminary No growth after 48 hours. 09/15/24 11:03 Blood - Venous Blood Culture - Preliminary No growth after 48 hours. 09/15/24 Unknown Urine Catheterized - Canas Catheter Urine Culture - Final No growth. Progress Note: A&P Assessment and plan (1) Respiratory failure: Status: Acute (2) Pneumonia: Status: Acute (3) Emphysema of lung: Status: Acute (4) COPD (chronic obstructive pulmonary disease): Status: Acute (5) Hypotension: Status: Acute (6) End stage renal disease: Status: Acute Plan Patient is a 64 Y M w/ COPD on 2-4L NC, psychiatric comorbidities, and ESRD on hemodialysis M/W/F, last dialysis session reportedly 09/12, presenting to emergency department on 09/15 w/ obtundation, found to be in acute respiratory failure, intubated 09/15, extubated 09/16; ICU course c/b persistent respiratory and metabolic acidosis, on/off BiPAP, and hypotension on vasopressors N: no acute issues CV: hypotension, likely multi-factorial, d/t sepsis, hemodialysis; norepinephrine gtt, wean as tolerated; of note, patient on midodrine at home, to resume when tolerating PO R: acute respiratory failure, likely multifactorial d/t profound acidosis, pneumonia, COPD/emphysema; intubated 09/15, extubated 09/16, on/off BiPAP GI: no acute issues; NPO while on BiPAP; failed speech/swallow evaluation 09/18, to re-reevaluate : ESRD on hemodialyis M/W/, hemodialysis 09/15, 09/17, 09/18, appreciate nephrology recommendations; CT A/P demonstrating R hydronephrosis, possible hemorrhage, appreciate urology recommendations H: no acute issues; mechanical devices ID: c/f pneumonia, empiric vancomycin, zosyn; follow-up BCx 09/15 E: no acute issues; to monitor hypo-/hyper-glycemia P: no acute issues; paranoid schizophrenia Quality Stroke Does the patient have a stroke diagnosis?: No VTE Prior VTE?: No VTE Risk Level:: Medical - moderate - high VTE Device Contraindication: N/A - Device Ordered VTE Drug Contraindication: N/A - Med Ordered
--- NOTE | 2024-09-19 09:03 | MHC.SLORD ---
Speech Language Pathology Order Status: Patient on BiPAP, holding PO trials until appropriate. Notified RN via secure [place] message.
--- NOTE | 2024-09-19 10:05 | MHC.CLN ---
F/U PT REQUIRES TPN FOR NUTRITION SUPPORT R/T PROLONGED NPO STATUS NPO CONTINUES; CERTIFIED PROFESSIONAL CODER FOLLOWING REVIEWED LABS; NOTED TRIGS 227 DISCUSSED WITH PHARMACY 09/19/24 RECOMMEND INCREASING TPN TO 60ML/HR TO PROVIDE 1022KCALS, 216G DEXTROSE, 72G PROTEIN REPLETE LYTES NEEDED; HOLD LIPIDS 09/20/24 PLAN TO INCREASE TO MAX GOAL RATE TPN 80ML/HR TO PROVIDE 1363KALS, 288G DEXTROSE, 96G PROTEIN (1.2G/KG) REPLETE LYTES NEEDED; HOLD LIPIDS RD CAN BE REACHED VIA TIGER CONNECT DURING OFF HOURS IF NEEDED
[2024-09-19 13:57] LABS: Venous Blood Gas Refer to POC result
[2024-09-19 13:58] LABS: VBG Base Excess 2.3 mmol/L; VBG HCO3 30 mmol/L (22-26); VBG pCO2 62 mmHg; VBG pH 7.28 (7.32-7.43); VBG pO2 63 mmHg
--- NOTE | 2024-09-19 14:36 | MHC.CM.PN ---
Pt weaning from BiPAP in anticipation of transfer to medical floor. Pt has been referred to [facility] facilities - will need to continue outpt HD on ,,. Clinical update given by phone to pt's CHD RN CRUZ Young today. CM to follow for finalization of d/c plans
[2024-09-19] MEDS: Midodrine HCl 5 MG TABLET PO (15:16)
--- NOTE | 2024-09-19 17:54 | MHC.SL.SWA ---
Speech Pathologist Impression: Risk of Aspiration, Moderate Oropharyngeal Dysphagia Risk of Aspiration Due to: Compromised Respiratory Status Dysphasia Diet Status: No Change Liquid Consistency and Strategies for Safe Swallow: Liquid Intake Recommendation: NPO Solid Food Consistency: Dietary Recommendations: NPO Additional Modifications to Solid Foods: Patient weaned from BiPAP this morning, now on Oxymask. Per RN, patient has been suctioning himself and has not allowed nursing staff to do it. Patient w/ moderate oropharyngeal phase dysphagia, characterized by slowed and disorganized oral preparation, delayed swallow trigger, and multiple swallow attempts. Patient presented w/ upper respiratory congestion, consistent throat clearing after swallowing, and difficulty clearing secretions. Recommend CONTINUE NPO status and aspiration precautions (frequent oral care for hygiene and comfort, elevate HoB). RD following d/t prolonged NPO status, patient requiring TPN. Oral Medication Intake: NPO Please contact the pharmacy regarding appropriate crushable or liquid drug formulations that are available whenever modified delivery is recommended. Supervision While Eating and Drinking for Safe Swallow: PO with ONCOLOGY COORDINATOR Swallowing Recommended Treatments: Compens. Strategy Educat. Recommendation for Speech: Inpatient Speech Therapy Modified Barium Swallow Study - Inpatient Modified Barium Swallow Study - Outpatient Comment: ONCOLOGY COORDINATOR to re-evaluate when appropriate. Recommend instrumental exam (MBSS) if concerns persist. Frequency/Duration: Date Range for Service Req: Timeline to reassess: Rolled [employer] Mill Operator Clinican/Clinical Fellow: No Supervisory Statement: I have reviewed and agree with the student/clinical fellow's documentation: N/A Speech Language Pathologist: Lluvia Alegria M.A., [facility]-ONCOLOGY COORDINATOR
[2024-09-19 18:24] LABS: Venous Blood Gas Refer to POC result
[2024-09-19 18:26] LABS: VBG Base Excess 0.9 mmol/L; VBG HCO3 29 mmol/L (22-26); VBG pCO2 68 mmHg; VBG pH 7.24 (7.32-7.43); VBG pO2 75 mmHg
[2024-09-19] MEDS: dexmedeTOMIDidine HCL/NS 400 MCG/100 ML INFUS..BTL 10.89 MCG IVCONT (19:46)
[2024-09-19] MEDS: vancomycin HCL 750 MG in 0.9 % Sodium Chloride 250 ML 265 MG IV (20:11)
[2024-09-19] MEDS: Parenteral Nutrition 1,440 ML 60 ML IV (21:00)
[2024-09-19 21:11] LABS: Venous Blood Gas Refer to POC result
[2024-09-19 21:11] LABS: VBG Base Excess 1.6 mmol/L; VBG HCO3 27 mmol/L (22-26); VBG pCO2 46 mmHg; VBG pH 7.37 (7.32-7.43); VBG pO2 78 mmHg
[2024-09-19] MEDS: Norepinephrine Bitartrate/NS 32 MG/250 ML PLAST..BAG IVCONT (22:34)
[2024-09-20] VITALS (38 sets, daily range): BP systolic 92–140; BP diastolic 29–93; PULSE 49–91; RESP 12–25; TEMP 36.2–36.7; O2SAT 90–100; BMI 27.3
[2024-09-20] MEDS: 0.9 % Sodium Chloride Flush 3 ML SYRINGE IVFLUSH ×3 (00:16→15:50)
[2024-09-20] MEDS: Hydrocortisone Sod Succ/PF 100 MG VIAL 50 MG IVPUSH ×3 (00:16→15:50)
[2024-09-20] MEDS: Heparin Sodium,Porcine 5,000 UNIT/ML VIAL 5000 UNIT SUBCUT ×3 (00:16→17:09)
[2024-09-20] MEDS: Piperacillin Sodium/Tazobactam 4.5 GM in 0.9 % Sodium Chloride 100 ML IV ×2 (05:20→17:05)
[2024-09-20 05:35] LABS: MANUAL DIFF FLAG NO
[2024-09-20 05:40] LABS: VBG Base Excess 3.7 mmol/L; VBG HCO3 28 mmol/L (22-26); VBG pCO2 49 mmHg; VBG pH 7.37 (7.32-7.43); VBG pO2 45 mmHg
[2024-09-20 05:46] LABS: Basophils Percent Auto 0.2 % (0-2); Eosinophils Percent Auto 0.2 % (0-4); Hematocrit 26.3 % (42.0-52.0); Hemoglobin 8.2 g/dl (14.0-18.0); Imm Gran Abs Auto 0.09 X10*3/uL (0.00-0.03); Imm Gran Pct Auto 0.7 % (0.0-0.4); Lymphocytes Absolute Auto 0.5 X10*3/uL (1.2-4.9); Lymphocytes Percent Auto 4.1 % (20-40); Mean Corpuscular HGB Conc 31.2 g/dl (31.0-36.0); Mean Corpuscular Hemoglobin 31.4 pg (27.0-33.0); Mean Corpuscular Volume 100.8 fL (80.0-98.0); Mean Platelet Volume 9.9 fL (9.4-12.4); Monocytes Absolute Auto 0.7 X10*3/uL (0.1-1.2); Monocytes Percent Auto 5.4 % (2-11); Neutrophils Absolute Auto 11.2 x10*3/uL (2.0-8.3); Neutrophils Percent Auto 89.4 % (45-73); Platelet Count 268 X10*3/uL (160-400); Red Blood Count 2.61 X10*6/uL (4.60-5.80); Red Cell Distribution Width 15.9 % (11.0-16.0); Venous Blood Gas Refer to POC result; White Blood Count 12.5 X10*3/uL (4.8-10.8)
[2024-09-20 05:59] LABS: Albumin Level 3.2 g/dL (3.5-5.0); Anion Gap 18 (12-20); Blood Urea Nitrogen 70 mg/dL (9-16); Calcium 10.2 mg/dL (8.4-10.2); Carbon Dioxide 24 mmol/L (22-29); Chloride 98 mmol/L (96-108); Glucose Random 211 mg/dL (60-115); Magnesium 2.9 mg/dL (1.6-2.6); Phosphorus 4.8 mg/dL (2.7-4.5); Potassium 3.3 mmol/L (3.3-5.1); Sodium 137 mmol/L (135-145)
[2024-09-20 06:00] LABS: Creatinine Clr Calc Pharmacy 13.7; Estimated Glomerular Filt Rate 10
--- NOTE | 2024-09-20 08:06 | PC.RT ---
Pt currently recieving dialysis. Transitioned to 6 lpm oxymask and is jameson well. Noted skin breakdown on bridge of nose, nurse aware.
--- NOTE | 2024-09-20 08:32 | PM.CCPN ---
Subjective Subjective Date of Service: 09/20/24 Interval History: no significant overnight events Critical Care Time (minutes): 60 Physical Exam Vital Signs: Vital Signs: Last Vital Signs Temp 97.4 F 09/20/24 08:00 Pulse 79 09/20/24 08:22 Resp 25 H 09/20/24 08:00 BP 95/35 L 09/20/24 08:22 Pulse Ox 92 09/20/24 08:00 O2 Del Method Oxymask 09/20/24 08:00 O2 Flow Rate 6 09/20/24 08:00 FiO2 45 09/20/24 07:00 BMI result Body Mass Index 27.3 Const: General: cooperative, healthy appearing, comfortable, no acute distress, well developed, alert, awake and Physically active Orientation/consciousness: patient oriented x3 HEENT: Head: Yes normal to inspection, Yes normocephalic and Yes atraumatic Eyes: General: appearance normal, both eyes and all related structures Neck: Neck: Yes normal visual inspection, Yes full ROM, Yes no meningeal signs, Yes trachea midline and Yes supple Chest: Chest palpation & inspection: normal inspection of the chest Resp: Other: diminished breath sounds throughout; no appreciable overt rales, rhonchi, wheezing Effort & Inspection: normal respiratory effort Cardio: Rate: regular rate Rhythm: regular rhythm GI: Inspection: Yes normal to inspection, No Abdominal wall edema and No distended Palpation (GI): Soft to palpation, not firm, nontender, no guarding and not rigid Skin: General skin exam: no rashes or lesions noted Neuro: General: patient oriented x3, tone normal, moves all extremities, no meningeal signs and no focal motor deficits Extrem: General: Yes normal to inspection, Yes full ROM, Yes capillary refill normal and Yes no clubbing, cyanosis or edema Psych: Appearance: grossly normal Objective Data Labs 09/20/24 05:29 09/20/24 05:29 Labs: Laboratory Results - last 24 hr 09/19/24 09/19/24 09/19/24 13:54 18:20 18:46 WBC RBC Hgb Hct MCV MCH MCHC RDW Plt Count MPV Immature Gran % (Auto) Neut % (Auto) Lymph % (Auto) [place] % (Auto) Eos % (Auto) Baso % (Auto) Lymph # (Auto) [place] # (Auto) Eos # (Auto) Baso # (Auto) Abs Immat Gran (auto) Absolute Neuts (auto) Absolute Nucleated RBC Nucleated RBC % (auto) VBG pH 7.28 L 7.24 L VBG pCO2 62 68 VBG pO2 63 75 VBG HCO3 30 H 29 H VBG O2 Saturation 89.0 93.0 VBG Base Excess 2.3 0.9 Sodium Potassium Chloride Carbon Dioxide Anion Gap BUN Creatinine Estim Creat Clear Calc Estimated GFR Random Glucose Calcium Phosphorus Magnesium Albumin Random Vancomycin 9.0 L 09/19/24 09/20/24 21:06 05:29 WBC 12.5 H RBC 2.61 L Hgb 8.2 L Hct 26.3 L MCV 100.8 H MCH 31.4 MCHC 31.2 RDW 15.9 Plt Count 268 MPV 9.9 Immature Gran % (Auto) 0.7 H Neut % (Auto) 89.4 H Lymph % (Auto) 4.1 L [place] % (Auto) 5.4 Eos % (Auto) 0.2 Baso % (Auto) 0.2 Lymph # (Auto) 0.5 L [place] # (Auto) 0.7 Eos # (Auto) 0.0 Baso # (Auto) 0.0 Abs Immat Gran (auto) 0.09 H Absolute Neuts (auto) 11.2 H Absolute Nucleated RBC 0.000 Nucleated RBC % (auto) 0.0 VBG pH 7.37 7.37 VBG pCO2 46 49 VBG pO2 78 45 VBG HCO3 27 H 28 H VBG O2 Saturation 97.0 Not Reportable VBG Base Excess 1.6 3.7 Sodium 137 Potassium 3.3 Chloride 98 Carbon Dioxide 24 Anion Gap 18 BUN 70 H Creatinine 5.70 H* Estim Creat Clear Calc 13.7 Estimated GFR 10 Random Glucose 211 H Calcium 10.2 Phosphorus 4.8 H Magnesium 2.9 H Albumin 3.2 L Random Vancomycin Microbiology Microbiology Results: Microbiology 09/15/24 12:10 Blood - Venous Blood Culture - Preliminary No growth after 48 hours. 09/15/24 11:03 Blood - Venous Blood Culture - Preliminary No growth after 48 hours. 09/15/24 Unknown Urine Catheterized - Canas Catheter Urine Culture - Final No growth. Progress Note: A&P Assessment and plan (1) Respiratory failure: Status: Acute (2) Pneumonia: Status: Acute (3) Emphysema of lung: Status: Acute (4) COPD (chronic obstructive pulmonary disease): Status: Acute (5) End stage renal disease: Status: Acute (6) Dysphagia: Status: Acute Plan Patient is a 64 Y M w/ COPD on 2-4L NC, psychiatric comorbidities, and ESRD on hemodialysis M/W/F, last dialysis session reportedly 09/12, presenting to emergency department on 09/15 w/ obtundation, found to be in acute respiratory failure, intubated 09/15, extubated 09/16; ICU course c/b persistent respiratory and metabolic acidosis, on/off BiPAP, and hypotension on vasopressors N: no acute issues CV: hypotension, likely multi-factorial, d/t sepsis, hemodialysis; norepinephrine gtt, wean as tolerated; of note, patient on midodrine at home, to resume when tolerating PO R: acute respiratory failure, likely multifactorial d/t profound acidosis, pneumonia, COPD/emphysema; intubated 09/15, extubated 09/16, on/off BiPAP d/t intermittent respiratory acidosis GI: no acute issues; NPO while on BiPAP; failed speech/swallow evaluation 09/18, 09/19; to re-reevaluate : ESRD on hemodialyis M/W/F, hemodialysis 09/15, 09/17, 09/18, 09/20, appreciate nephrology recommendations; CT A/P demonstrating R hydronephrosis, possible hemorrhage, appreciate urology recommendations H: no acute issues; chemical DVT prophylaxis w/ heparin SQ ID: c/f pneumonia, empiric vancomycin, zosyn; follow-up BCx 09/15 E: no acute issues; to monitor hypo-/hyper-glycemia P: no acute issues; paranoid schizophrenia Quality Stroke Does the patient have a stroke diagnosis?: No VTE Prior VTE?: No VTE Risk Level:: Medical - moderate - high VTE Device Contraindication: N/A - Device Ordered VTE Drug Contraindication: N/A - Med Ordered
[2024-09-20] MEDS: Albumin Human 25 % 100 ML IV ×2 (08:33→13:11)
[2024-09-20] MEDS: Potassium Chloride/H20 20 MEQ/100 ML PIGGYBACK 100 MEQ IV (08:33)
--- NOTE | 2024-09-20 15:01 | PC.RT ---
Pt on/off bipap during day as requested, HFNC attempted but pt desaturarted sec to mouth breathing. Nursing aware.Pt jameson oxymask 6-8 lpm when breaking from bipap.
[2024-09-20 17:58] LABS: VBG Base Excess 6.7 mmol/L; VBG HCO3 34 mmol/L (22-26); VBG pCO2 71 mmHg; VBG pH 7.29 (7.32-7.43); VBG pO2 50 mmHg
--- NOTE | 2024-09-20 18:52 | HO.SKINPHOTO ---
Location: Right buttock
[2024-09-20 19:29] LABS: Venous Blood Gas Refer to POC result
[2024-09-20] MEDS: Parenteral Nutrition 1,920 ML 80 ML IV (20:47)
[2024-09-21] VITALS (29 sets, daily range): BP systolic 106–151; BP diastolic 36–98; PULSE 55–83; RESP 12–27; TEMP 36.1–36.8; O2SAT 90–99; BMI 26.9
[2024-09-21] MEDS: Heparin Sodium,Porcine 5,000 UNIT/ML VIAL 5000 UNIT SUBCUT ×3 (00:07→16:39)
[2024-09-21] MEDS: 0.9 % Sodium Chloride Flush 3 ML SYRINGE IVFLUSH ×3 (00:08→16:39)
[2024-09-21] MEDS: Hydrocortisone Sod Succ/PF 100 MG VIAL 50 MG IVPUSH ×3 (00:08→20:59)
[2024-09-21 05:13] LABS: VBG Base Excess 4.6 mmol/L; VBG HCO3 30 mmol/L (22-26); VBG pCO2 49 mmHg; VBG pH 7.39 (7.32-7.43); VBG pO2 45 mmHg
[2024-09-21 05:21] LABS: MANUAL DIFF FLAG NO
[2024-09-21 05:24] LABS: Basophils Percent Auto 0.2 % (0-2); Eosinophils Percent Auto 0.2 % (0-4); Hematocrit 24.7 % (42.0-52.0); Hemoglobin 7.8 g/dl (14.0-18.0); Lymphocytes Absolute Auto 0.5 X10*3/uL (1.2-4.9); Lymphocytes Percent Auto 5.6 % (20-40); Mean Corpuscular HGB Conc 31.6 g/dl (31.0-36.0); Mean Corpuscular Hemoglobin 32.2 pg (27.0-33.0); Mean Corpuscular Volume 102.1 fL (80.0-98.0); Mean Platelet Volume 9.9 fL (9.4-12.4); Monocytes Absolute Auto 0.4 X10*3/uL (0.1-1.2); Monocytes Percent Auto 4.3 % (2-11); NRBC Pct Auto 0.2 /100WBC (0.0-0.2); Neutrophils Absolute Auto 8.6 x10*3/uL (2.0-8.3); Neutrophils Percent Auto 88.7 % (45-73); Platelet Count 225 X10*3/uL (160-400); Red Blood Count 2.42 X10*6/uL (4.60-5.80); Red Cell Distribution Width 15.6 % (11.0-16.0); White Blood Count 9.6 X10*3/uL (4.8-10.8)
[2024-09-21] MEDS: Piperacillin Sodium/Tazobactam 4.5 GM in 0.9 % Sodium Chloride 100 ML IV ×2 (05:31→16:50)
[2024-09-21 05:51] LABS: Albumin Level 3.8 g/dL (3.5-5.0); Anion Gap 15 (12-20); Blood Urea Nitrogen 50 mg/dL (9-16); Calcium 10.2 mg/dL (8.4-10.2); Carbon Dioxide 26 mmol/L (22-29); Chloride 100 mmol/L (96-108); Creatinine Clr Calc Pharmacy 19.5; Estimated Glomerular Filt Rate 15; Glucose Random 249 mg/dL (60-115); Magnesium 2.4 mg/dL (1.6-2.6); Phosphorus 1.8 mg/dL (2.7-4.5); Potassium 3.2 mmol/L (3.3-5.1); Sodium 138 mmol/L (135-145)
[2024-09-21] MEDS: Potassium Phosphate/NS 15 MMOL/250 ML PLAST..BAG 62.5 MMOL IV (08:10)
--- NOTE | 2024-09-21 08:29 | PM.CCPN ---
Subjective Subjective Date of Service: 09/21/24 Interval History: no significant overnight events Critical Care Time (minutes): 60 Physical Exam Vital Signs: Vital Signs: Last Vital Signs Temp 97.5 F 09/21/24 08:00 Pulse 74 09/21/24 08:00 Resp 20 09/21/24 08:00 BP 135/98 H 09/21/24 08:00 Pulse Ox 94 09/21/24 08:00 O2 Del Method Oxymask 09/21/24 08:00 O2 Flow Rate 5 09/21/24 08:00 FiO2 35 09/21/24 07:00 BMI result Body Mass Index 26.9 Const: General: cooperative, healthy appearing, comfortable, no acute distress, well developed, alert, awake and Physically active Orientation/consciousness: patient oriented x3 HEENT: Head: Yes normal to inspection, Yes normocephalic and Yes atraumatic Eyes: General: appearance normal, both eyes and all related structures Neck: Neck: Yes normal visual inspection, Yes full ROM, Yes no meningeal signs, Yes trachea midline and Yes supple Chest: Chest palpation & inspection: normal inspection of the chest Resp: Other: diminished breath sounds throughout; some appreciable rales; no overt rhonchi, wheezing Effort & Inspection: normal respiratory effort Cardio: Rate: regular rate Rhythm: regular rhythm GI: Inspection: Yes normal to inspection, No Abdominal wall edema and No distended Palpation (GI): Soft to palpation, not firm, nontender, no guarding and not rigid Skin: General skin exam: no rashes or lesions noted Neuro: General: patient oriented x3, moves all extremities, no meningeal signs and no focal motor deficits Extrem: General: Yes normal to inspection, Yes full ROM, Yes capillary refill normal and Yes no clubbing, cyanosis or edema Psych: Appearance: grossly normal Objective Data Labs 09/21/24 05:14 09/21/24 05:14 Labs: Laboratory Results - last 24 hr 09/20/24 09/21/24 09/21/24 17:48 05:02 05:14 WBC 9.6 RBC 2.42 L Hgb 7.8 L Hct 24.7 L MCV 102.1 H MCH 32.2 MCHC 31.6 RDW 15.6 Plt Count 225 MPV 9.9 Immature Gran % (Auto) 1.0 H Neut % (Auto) 88.7 H Lymph % (Auto) 5.[address] [place] % (Auto) 4.3 Eos % (Auto) 0.2 Baso % (Auto) 0.2 Lymph # (Auto) 0.[address] [place] # (Auto) 0.4 Eos # (Auto) 0.0 Baso # (Auto) 0.0 Abs Immat Gran (auto) 0.10 H Absolute Neuts (auto) 8.6 H Absolute Nucleated RBC 0.020 H Nucleated RBC % (auto) 0.2 VBG pH 7.29 L 7.39 VBG pCO2 71 49 VBG pO2 50 45 VBG HCO3 34 H 30 H VBG O2 Saturation 74.0 77.0 VBG Base Excess 6.7 4.6 Sodium 138 Potassium 3.2 L Chloride 100 Carbon Dioxide 26 Anion Gap 15 BUN 50 H Creatinine 4.01 H* Estim Creat Clear Calc 19.5 Estimated GFR 15 Random Glucose 249 H Calcium 10.2 Phosphorus 1.8 L Magnesium 2.4 Albumin 3.8 Microbiology Microbiology Results: Microbiology 09/15/24 12:10 Blood - Venous Blood Culture - Final No growth after 5 days. 09/15/24 11:03 Blood - Venous Blood Culture - Final No growth after 5 days. 09/15/24 Unknown Urine Catheterized - Canas Catheter Urine Culture - Final No growth. Progress Note: A&P Assessment and plan (1) Respiratory failure: Status: Acute (2) Pneumonia: Status: Acute (3) COPD (chronic obstructive pulmonary disease): Status: Acute (4) Emphysema of lung: Status: Acute (5) End stage renal disease: Status: Acute (6) Dysphagia: Status: Acute Plan Patient is a 64 Y M w/ COPD on 2-4L NC, psychiatric comorbidities, and ESRD on hemodialysis M/W/F, last dialysis session reportedly 09/12, presenting to emergency department on 09/15 w/ obtundation, found to be in acute respiratory failure, intubated 09/15, extubated 09/16; ICU course c/b persistent respiratory and metabolic acidosis, on/off BiPAP, and hypotension on vasopressors N: no acute issues CV: hypotension, likely multi-factorial, d/t sepsis, hemodialysis; norepinephrine gtt, wean as tolerated; of note, patient on midodrine at home, to resume when tolerating PO R: acute respiratory failure, likely multifactorial d/t profound acidosis, pneumonia, COPD/emphysema; intubated 09/15, extubated 09/16, on/off BiPAP d/t intermittent respiratory acidosis GI: no acute issues; NPO while on BiPAP; failed speech/swallow evaluation 09/18, 09/19; to re-reevaluate : ESRD on hemodialyis M/W/F, hemodialysis 09/15, 09/17, 09/18, 09/20, appreciate nephrology recommendations; CT A/P demonstrating R hydronephrosis, possible hemorrhage, appreciate urology recommendations H: no acute issues; chemical DVT prophylaxis w/ heparin SQ ID: c/f pneumonia, empiric vancomycin, zosyn; follow-up BCx 09/15 E: no acute issues; to monitor hypo-/hyper-glycemia P: no acute issues; paranoid schizophrenia Quality Stroke Does the patient have a stroke diagnosis?: No VTE Prior VTE?: No VTE Risk Level:: Medical - moderate - high VTE Device Contraindication: N/A - Device Ordered VTE Drug Contraindication: N/A - Med Ordered
--- NOTE | 2024-09-21 12:02 | HE.PHANOTE ---
TPN 09/21/24 Contacted Savannah Wick because I was concerned about possible refeeding syndrome for this patient. Patients K is low, phos dropped, glucose is high, mag decreased. Savannah said this may be a mild form of refeeding syndrome but he is not at max goal rate an will not be able to get there since trigs are elevated. Patient is also on dialysis which can affect electrolytes and his last session was on sunday. I also contacted Tammy Alcala see if she wanted to add any electrolytes to the TPN bag. We both agreed to not add any electrolytes to the bag and she will supplement outside of the TPN if needed.
[2024-09-21 13:44] LABS: Venous Blood Gas Refer to POC result
[2024-09-21] MEDS: Insulin Lispro 100 UNIT/ML 3 ML VIAL SUBCUT (16:57)
[2024-09-21 16:58] LABS: Glucose, Whole Blood 212 mg/dL (60-115)
[2024-09-21 18:30] LABS: VBG Base Excess 3.3 mmol/L; VBG HCO3 31 mmol/L (22-26); VBG pCO2 72 mmHg; VBG pH 7.24 (7.32-7.43); VBG pO2 66 mmHg
[2024-09-21 18:42] LABS: Venous Blood Gas Refer to POC result
[2024-09-21] MEDS: Parenteral Nutrition 1,920 ML 80 ML IV (21:00)
[2024-09-21 23:54] LABS: Glucose, Whole Blood 194 mg/dL (60-115)
[2024-09-22] VITALS (36 sets, daily range): BP systolic 72–209; BP diastolic 31–180; PULSE 65–104; RESP 12–35; TEMP 36.4–37.1; O2SAT 86–96; BMI 25.2
[2024-09-22] MEDS: Insulin Lispro 100 UNIT/ML 3 ML VIAL SUBCUT ×4 (00:11→18:32)
[2024-09-22] MEDS: Heparin Sodium,Porcine 5,000 UNIT/ML VIAL 5000 UNIT SUBCUT ×3 (00:11→18:32)
[2024-09-22] MEDS: 0.9 % Sodium Chloride Flush 3 ML SYRINGE IVFLUSH ×3 (00:12→15:19)
[2024-09-22 05:28] LABS: VBG Base Excess 0.4 mmol/L; VBG HCO3 25 mmol/L (22-26); VBG pCO2 45 mmHg; VBG pH 7.36 (7.32-7.43); VBG pO2 57 mmHg
[2024-09-22 05:42] LABS: MANUAL DIFF FLAG NO
[2024-09-22 05:44] LABS: Basophils Percent Auto 0.3 % (0-2); Eosinophils Percent Auto 0.4 % (0-4); Hematocrit 25.5 % (42.0-52.0); Hemoglobin 7.9 g/dl (14.0-18.0); Imm Gran Abs Auto 0.22 X10*3/uL (0.00-0.03); Lymphocytes Absolute Auto 0.8 X10*3/uL (1.2-4.9); Lymphocytes Percent Auto 7.2 % (20-40); Mean Corpuscular Hemoglobin 31.6 pg (27.0-33.0); Mean Platelet Volume 10.1 fL (9.4-12.4); Monocytes Absolute Auto 0.5 X10*3/uL (0.1-1.2); Monocytes Percent Auto 4.4 % (2-11); Neutrophils Absolute Auto 9.5 x10*3/uL (2.0-8.3); Neutrophils Percent Auto 85.7 % (45-73); Platelet Count 246 X10*3/uL (160-400); Red Cell Distribution Width 15.7 % (11.0-16.0)
[2024-09-22 05:52] LABS: Venous Blood Gas Refer to POC result
[2024-09-22] MEDS: Piperacillin Sodium/Tazobactam 4.5 GM in 0.9 % Sodium Chloride 100 ML IV ×2 (06:02→18:32)
[2024-09-22 06:04] LABS: Albumin Level 3.6 g/dL (3.5-5.0); Anion Gap 21 (12-20); Blood Urea Nitrogen 86 mg/dL (9-16); Calcium 10.3 mg/dL (8.4-10.2); Carbon Dioxide 22 mmol/L (22-29); Chloride 99 mmol/L (96-108); Creatinine Clr Calc Pharmacy 12.9; Estimated Glomerular Filt Rate 9; Glucose Random 230 mg/dL (60-115); Magnesium 2.4 mg/dL (1.6-2.6); Phosphorus 3.7 mg/dL (2.7-4.5); Potassium 3.3 mmol/L (3.3-5.1); Sodium 139 mmol/L (135-145)
[2024-09-22] MEDS: Hydrocortisone Sod Succ/PF 100 MG VIAL 50 MG IVPUSH (08:40)
[2024-09-22] MEDS: Potassium Chloride/H20 20 MEQ/100 ML PIGGYBACK 100 MEQ IV (08:41)
--- NOTE | 2024-09-22 11:08 | MHC.SLORD ---
Speech Language Pathology Order Status: JOO Nava consulted, pt remains on BiPap this morning, WEIGHT LOSS PHYSICIAN to return upon text from RN when pt status more stable, potentially after dialysis. Pt currently receiving TPN for nutrition.
--- NOTE | 2024-09-22 11:19 | MHC.CLN ---
F/U PT REQUIRES TPN FOR NUTRITION SUPPORT R/T PROLONGED NPO STATUS NPO CONTINUES REVIEWED LABS DISCUSSED AT ROUNDS WITH MD; CONCERN WITH TOTAL VOLUME TPN R/T ESRD/HD DISCUSSED WITH PHARMACY RECOMMEND CHANGING TPN FORMULA TO 8/10 SOLUTION AT 50ML/HR TO PROVIDE 796KCALS, 120G DEXTROSE, 96G PROTEIN, 1200ML TOTAL VOLUME REPLETE LYTES NEEDED; HOLD LIPIDS
[2024-09-22 12:23] LABS: Glucose, Whole Blood 187 mg/dL (60-115)
[2024-09-22] MEDS: Norepinephrine Bitartrate/D5W 8 MG/250 ML PLAST..BAG 8.33 MG IVCONT (12:40)
--- NOTE | 2024-09-22 12:46 | P.PNCC_ITS ---
Subjective Subjective Date of Service: 09/22/24 Interval History: 64-year-old gentleman with underlying COPD on 2-4 L of supplemental oxygen, paranoid schizophrenia, end-stage renal disease on hemodialysis admitted on 09/15/2024 with alteration of mental status, hypoxia requiring intubation, and profound metabolic acidosis requiring urgent dialysis. Patient uneventfully extubated on 09/16/2024, however he continues with episodes of hypercapnia requiring on/off BiPAP support. Also, though patient mental status has significantly improved, he continues to fail his swallow evaluations and now requires support with TPN. No events overnight. Critical Care Time (minutes): 60 Physical Exam 2 Vital Signs: Vital Signs: Last Vital Signs Temp 98.1 F 09/22/24 07:00 Pulse 96 09/22/24 12:40 Resp 31 H 09/22/24 11:54 BP 100/31 L 09/22/24 12:40 Pulse Ox 90 L 09/22/24 11:30 O2 Del Method BiPAP 09/22/24 11:30 O2 Flow Rate 5 09/21/24 13:00 FiO2 35 09/22/24 11:30 BMI result Body Mass Index 25.2 Const: General: no acute distress, alert and awake Eyes: Sclerae: sclerae normal EOM: EOMs intact bilaterally Neck: Neck: Yes no lymphadenopathy, Yes trachea midline and Yes supple Resp: Effort & Inspection: no respiratory distress and tachypneic A uscultation: crackles (Bilateral) Cardio: Rate: regular rate Rhythm: regular rhythm Heart sounds: no gallops, no murmurs and no rubs GI: Inspection: Yes distended Palpation (GI): Soft to palpation and Other GI palpation findings present ( Nontender) Auscultation: normal bowel sounds Extrem: General: No clubbing, No cyanosis and Yes edema (1+ bilateral) Objective Data Labs 09/22/24 05:13 09/22/24 05:13 Labs: Laboratory Results - last 24 hr 09/21/24 09/21/24 09/21/24 16:49 18:14 23:44 WBC RBC Hgb Hct MCV MCH MCHC RDW Plt Count MPV Immature Gran % (Auto) Neut % (Auto) Lymph % (Auto) [place] % (Auto) Eos % (Auto) Baso % (Auto) Lymph # (Auto) [place] # (Auto) Eos # (Auto) Baso # (Auto) Abs Immat Gran (auto) Absolute Neuts (auto) Absolute Nucleated RBC Nucleated RBC % (auto) VBG pH 7.24 L VBG pCO2 72 VBG pO2 66 VBG HCO3 31 H VBG O2 Saturation 90.0 VBG Base Excess 3.3 Sodium Potassium Chloride Carbon Dioxide Anion Gap BUN Creatinine Estim Creat Clear Calc Estimated GFR POC Glucose 212 H 194 H Random Glucose Calcium Phosphorus Magnesium Albumin Blood Type Antibody Screen 09/22/24 09/22/24 09/22/24 05:13 05:15 12:20 WBC 11.0 H RBC 2.50 L Hgb 7.9 L Hct 25.5 L MCV 102.0 H MCH 31.6 MCHC 31.0 RDW 15.7 Plt Count 246 MPV 10.1 Immature Gran % (Auto) 2.0 H Neut % (Auto) 85.7 H Lymph % (Auto) 7.2 L [place] % (Auto) 4.4 Eos % (Auto) 0.4 Baso % (Auto) 0.3 Lymph # (Auto) 0.8 L [place] # (Auto) 0.5 Eos # (Auto) 0.0 Baso # (Auto) 0.0 Abs Immat Gran (auto) 0.22 H Absolute Neuts (auto) 9.5 H Absolute Nucleated RBC 0.000 Nucleated RBC % (auto) 0.0 VBG pH 7.36 VBG pCO2 45 VBG pO2 57 VBG HCO3 25 VBG O2 Saturation 87.0 VBG Base Excess 0.4 Sodium 139 Potassium 3.3 Chloride 99 Carbon Dioxide 22 Anion Gap 21 H BUN 86 H Creatinine 6.04 H* Estim Creat Clear Calc 12.9 Estimated GFR 9 POC Glucose 187 H Random Glucose 230 H Calcium 10.3 H Phosphorus 3.7 Magnesium 2.4 Albumin 3.6 Blood Type O Positive Antibody Screen NEGATIVE Microbiology Microbiology Results: Microbiology 09/15/24 12:10 Blood - Venous Blood Culture - Final No growth after 5 days. 09/15/24 11:03 Blood - Venous Blood Culture - Final No growth after 5 days. 09/15/24 Unknown Urine Catheterized - Canas Catheter Urine Culture - Final No growth. Progress Note: A&P Assessment and plan (1) End stage renal disease: Status: Acute (2) Dysphagia: Status: Acute (3) COPD (chronic obstructive pulmonary disease): Status: Acute (4) Acute on chronic respiratory failure with hypoxia and hypercapnia: Status: Acute Plan Assessment: 64-year-old gentleman with underlying COPD on supplemental oxygen burning schizophrenia and ESRD on hemodialysis admitted with acute respiratory failure initially requiring ventilatory support, now extubated requiring on/off BiPAP support. Plan: Neuro: Encephalopathy resolved. Cardiac: No acute issues. Pulmonary: Acute chronic hypoxic and hypercapnic respiratory failure secondary to pulmonary edema requiring BiPAP support on/off. Still remains approximately 10 L positive. Continue to titrate off BiPAP support as tolerated. Renal: ESRD on hemodialysis. Nephrology service care appreciated. Endo: No acute issues. GI: No acute issues. ID: No acute issues Heme/Onc: No acute issues. Psych: No acute issues. Underlying paranoid schizophrenia. Miscellaneous: No acute issues. Prophylaxis: Heparin Diet: TPN Critical care time spent: 60 Quality Stroke Does the patient have a stroke diagnosis?: No VTE Prior VTE?: No VTE Risk Level:: Medical - moderate - high VTE Device Contraindication: N/A - Device Ordered VTE Drug Contraindication: N/A - Med Ordered
--- NOTE | 2024-09-22 14:21 | MHC.CM.PN ---
Pt continues care in ICU: HD on M, W, F: will wean from daytime BiPAP and only use at night. Pt has been referred to [facility] (will need HD) - several facilities following. Clinical updates sent to sites. CM to follow
--- NOTE | 2024-09-22 14:26 | MHC.SL.SWA ---
Speech Pathologist Impression: Adequate oropharyngeal coordination with liquids; ease of fatigue and respiratory involvement remain significant factors in reducing airway protection Risk of Aspiration Due to: Medically fragile Respiratory status Dysphasia Diet Status: Liquids only, thickened to nectar consistency Liquid Consistency and Strategies for Safe Swallow: Liquid Intake Recommendation: NTL Liquid Intake Strategies: Small Sips: cup, straw or spoonful sips appropriate Upright positioning during and after PO for 30 minutes Solid Food Consistency: Dietary Recommendations: liquid diet Additional Modifications to Solid Foods: Oral Medication Intake: NO Oral meds at this time Please contact the pharmacy regarding appropriate crushable or liquid drug formulations that are available whenever modified delivery is recommended. Compensatory Strategies and Precautions to be Taken for Safe Swallow: Sitting Upright (90 deg) Liquids from Cup Liquids from Straw Liquids from Spoon Small Bites and Sips Supervision While Eating and Drinking for Safe Swallow: Total Assistance (1:1) Foods to Avoid: Swallowing Recommended Treatments: Compens. Strategy Educat. Recommendation for Speech: Inpatient Speech Therapy Modified Barium Swallow Study - Inpatient Modified Barium Swallow Study - Outpatient Comment: ROVING WEIGHT GAUGER to re-evaluate daily. Pt needs 1:1 assist for PO. Recc liquid diet to resume PO, thickened to nectar consistency. Pt may benefit from instrumental exam to further evaluate (MBSS) when stable. Frequency/Duration: Date Range for Service Req: Timeline to reassess: Filling Operator Clinican/Clinical Fellow: No Supervisory Statement: I have reviewed and agree with the student/clinical fellow's documentation: N/A Speech Language Pathologist: Hortensia Haq M.S., [facility] WEIGHT GAUGER
[2024-09-22] MEDS: Midodrine HCl 5 MG TABLET PO ×2 (14:34→19:55)
--- NOTE | 2024-09-22 16:40 | P.PNNP_ITS ---
Subjective Subjective Date of Service: 09/22/24 Interval history: 64-year-old gentleman with underlying COPD on 2-4 L of supplemental oxygen, paranoid schizophrenia, end-stage renal disease on hemodialysis admitted on 09/15/2024 with alteration of mental status, hypoxia requiring intubation, and profound metabolic acidosis requiring urgent dialysis. Patient uneventfully extubated on 09/16/2024, however he continues with episodes of hypercapnia requiring on/off BiPAP support. Also, though patient mental status has significantly improved, he continues to fail his swallow evaluations and now requires support with TPN. HD today and doing better--jameson off Bipap for longer periods of time Physical Exam 2 Vital Signs: Vital Signs: Last Vital Signs Temp 97.9 F 09/22/24 15:56 Pulse 94 09/22/24 15:56 Resp 22 H 09/22/24 15:56 BP 97/57 L 09/22/24 15:56 Pulse Ox 91 L 09/22/24 15:56 O2 Del Method Oxymask 09/22/24 15:56 O2 Flow Rate 5 09/22/24 15:56 FiO2 30 09/22/24 14:35 BMI result Body Mass Index 25.2 Const: Other: fatigued, though easily arousable w/ verbal stimulus General: cooperative and well developed Orientation/consciousness: p atient oriented x3 HEENT: Head: Yes normal to inspection and Yes atraumatic Eyes: General: appearance normal, both eyes and all related structures Neck: Neck: Yes normal visual inspection, Yes full ROM, Yes no meningeal signs, Yes trachea midline and Yes supple Chest: Chest palpation & inspection: normal inspection of the chest Resp: Other: some appreciable rhonchi; no overt rales, wheezing Effort & Inspection: normal respiratory effort Cardio: Rate: regular rate Rhythm: regular rhythm GI: Inspection: Yes normal to inspection, Yes Abdominal wall edema and Yes distended Skin: General skin exam: no rashes or lesions noted Neuro: General: patient oriented x3, tone normal, moves all extremities, no meningeal signs and no focal motor deficits Extrem: Other: appreciable 2+ pitting edema to bilateral shins General: Yes normal to inspection, Yes full ROM and Yes capillary refill normal Psych: Appearance: grossly normal Objective Data Labs 09/22/24 05:13 09/22/24 05:13 Labs: Laboratory Results - last 24 hr 09/21/24 09/21/24 09/21/24 16:49 18:14 23:44 WBC RBC Hgb Hct MCV MCH MCHC RDW Plt Count MPV Immature Gran % (Auto) Neut % (Auto) Lymph % (Auto) [place] % (Auto) Eos % (Auto) Baso % (Auto) Lymph # (Auto) [place] # (Auto) Eos # (Auto) Baso # (Auto) Abs Immat Gran (auto) Absolute Neuts (auto) Absolute Nucleated RBC Nucleated RBC % (auto) VBG pH 7.24 L VBG pCO2 72 VBG pO2 66 VBG HCO3 31 H VBG O2 Saturation 90.0 VBG Base Excess 3.3 Sodium Potassium Chloride Carbon Dioxide Anion Gap BUN Creatinine Estim Creat Clear Calc Estimated GFR POC Glucose 212 H 194 H Random Glucose Calcium Phosphorus Magnesium Albumin Blood Type Antibody Screen 09/22/24 09/22/24 09/22/24 05:13 05:15 12:20 WBC 11.0 H RBC 2.50 L Hgb 7.9 L Hct 25.5 L MCV 102.0 H MCH 31.6 MCHC 31.0 RDW 15.7 Plt Count 246 MPV 10.1 Immature Gran % (Auto) 2.0 H Neut % (Auto) 85.7 H Lymph % (Auto) 7.2 L [place] % (Auto) 4.4 Eos % (Auto) 0.4 Baso % (Auto) 0.3 Lymph # (Auto) 0.8 L [place] # (Auto) 0.5 Eos # (Auto) 0.0 Baso # (Auto) 0.0 Abs Immat Gran (auto) 0.22 H Absolute Neuts (auto) 9.5 H Absolute Nucleated RBC 0.000 Nucleated RBC % (auto) 0.0 VBG pH 7.36 VBG pCO2 45 VBG pO2 57 VBG HCO3 25 VBG O2 Saturation 87.0 VBG Base Excess 0.4 Sodium 139 Potassium 3.3 Chloride 99 Carbon Dioxide 22 Anion Gap 21 H BUN 86 H Creatinine 6.04 H* Estim Creat Clear Calc 12.9 Estimated GFR 9 POC Glucose 187 H Random Glucose 230 H Calcium 10.3 H Phosphorus 3.7 Magnesium 2.4 Albumin 3.6 Blood Type O Positive Antibody Screen NEGATIVE Microbiology Microbiology Results: Microbiology 09/15/24 12:10 Blood - Venous Blood Culture - Final No growth after 5 days. 09/15/24 11:03 Blood - Venous Blood Culture - Final No growth after 5 days. 09/15/24 Unknown Urine Catheterized - Canas Catheter Urine Culture - Final No growth. Procedures Date of Service Date of Service: 09/22/24 Assessment & Plan Assessment and plan (1) Pneumonia: Status: Acute (2) End stage renal disease: Status: Acute Plan ESRD: mwf usually has HD at [facility] via AVF presented with respiratory failure due to pneumonia and hyperkalemia REC -cont HD 3x/wk xtra UF as needed--will plan on UF x 2 hrs tomorrow to hlep breathing ( 3.8 L removed todya) - Vol removal as tolerated -dose medication for ESRD patient d/w ICU attending Time Spent With Patient Time: Total time managing care of this patient today ____ minutes. Progress Note: Quality Stroke Does the patient have a stroke diagnosis?: No
[2024-09-22 17:18] LABS: Glucose, Whole Blood 273 mg/dL (60-115)
[2024-09-22 18:26] LABS: Vancomycin Random 10.2 mcg/mL (15-20)
--- NOTE | 2024-09-22 18:34 | HE.PHANOTE ---
Re: [facility] pt, trough returned at 10.2, gave one time dose of 500mg. Next trough after dialysis 09/24 @ 1800.
[2024-09-22] MEDS: vancomycin HCL 500 MG in 0.9 % Sodium Chloride 100 ML 110 MG IV (18:40)
[2024-09-22] MEDS: Parenteral Nutrition 1,200 ML 50 ML IV (19:55)
[2024-09-22] MEDS: Famotidine 20 MG TABLET PO (19:55)
[2024-09-22 23:59] LABS: Glucose, Whole Blood 145 mg/dL (60-115)
[2024-09-23] VITALS (34 sets, daily range): BP systolic 58–141; BP diastolic 31–82; PULSE 52–99; RESP 15–37; TEMP 35.8–37.7; O2SAT 89–97; BMI 26.1
[2024-09-23] MEDS: Heparin Sodium,Porcine 5,000 UNIT/ML VIAL 5000 UNIT SUBCUT ×3 (00:28→16:44)
[2024-09-23] MEDS: 0.9 % Sodium Chloride Flush 3 ML SYRINGE IVFLUSH ×3 (00:29→16:44)
[2024-09-23] MEDS: Midodrine HCl 5 MG TABLET PO ×4 (03:33→20:38)
[2024-09-23] MEDS: Piperacillin Sodium/Tazobactam 4.5 GM in 0.9 % Sodium Chloride 100 ML IV ×2 (05:12→18:26)
[2024-09-23 05:29] LABS: MANUAL DIFF FLAG NO
[2024-09-23 05:37] LABS: Basophils Absolute Auto 0.1 X10*3/uL (0.0-0.2); Basophils Percent Auto 0.5 % (0-2); Eosinophils Absolute Auto 0.3 X10*3/uL (0.0-0.4); Eosinophils Percent Auto 1.3 % (0-4); Hemoglobin 8.9 g/dl (14.0-18.0); Imm Gran Abs Auto 0.85 X10*3/uL (0.00-0.03); Imm Gran Pct Auto 4.6 % (0.0-0.4); Lymphocytes Absolute Auto 1.4 X10*3/uL (1.2-4.9); Lymphocytes Percent Auto 7.4 % (20-40); Mean Corpuscular HGB Conc 31.8 g/dl (31.0-36.0); Mean Corpuscular Hemoglobin 32.4 pg (27.0-33.0); Mean Corpuscular Volume 101.8 fL (80.0-98.0); Mean Platelet Volume 10.3 fL (9.4-12.4); Monocytes Absolute Auto 1.2 X10*3/uL (0.1-1.2); Monocytes Percent Auto 6.2 % (2-11); NRBC Pct Auto 0.4 /100WBC (0.0-0.2); Neutrophils Absolute Auto 14.9 x10*3/uL (2.0-8.3); Platelet Count 335 X10*3/uL (160-400); Red Blood Count 2.75 X10*6/uL (4.60-5.80); Red Cell Distribution Width 16.2 % (11.0-16.0); White Blood Count 18.6 X10*3/uL (4.8-10.8)
[2024-09-23 05:56] LABS: VBG Base Excess 2.4 mmol/L; VBG HCO3 31 mmol/L (22-26); VBG pCO2 73 mmHg; VBG pH 7.23 (7.32-7.43); VBG pO2 50 mmHg
[2024-09-23 05:58] LABS: Anion Gap 17 (12-20); Blood Urea Nitrogen 64 mg/dL (9-16); Calcium 10.4 mg/dL (8.4-10.2); Carbon Dioxide 27 mmol/L (22-29); Chloride 97 mmol/L (96-108); Creatinine Clr Calc Pharmacy 16.8; Estimated Glomerular Filt Rate 13; Glucose Random 169 mg/dL (60-115); Magnesium 2.1 mg/dL (1.6-2.6); Phosphorus 4.3 mg/dL (2.7-4.5); Potassium 3.3 mmol/L (3.3-5.1); Sodium 138 mmol/L (135-145); Triglycerides 131 mg/dL (<150)
[2024-09-23 06:00] LABS: Venous Blood Gas Refer to POC result
[2024-09-23] MEDS: Norepinephrine Bitartrate/D5W 8 MG/250 ML PLAST..BAG 7.68 MG IVCONT (06:08)
[2024-09-23] MEDS: Insulin Lispro 100 UNIT/ML 3 ML VIAL SUBCUT ×3 (06:11→18:25)
[2024-09-23] MEDS: Potassium Chloride/H20 40 MEQ/100 ML PIGGYBACK 50 MEQ IV (06:28)
[2024-09-23] MEDS: Aspirin 81 MG TAB.CHEW PO (08:06)
--- NOTE | 2024-09-23 09:57 | MHC.CLN ---
F/U DISCUSSED AT ROUNDS WITH DIET ADVANCED TO C/L NECTAR THICK PO INTAKE POOR REVIEWED LABS; TRIGS 131 DISCUSSED WITH PHARMACY RECOMMEND TPN 8/10 SOLUTION AT 50ML/HR WITH 58G LIPIDS TO PROVIDE 1376 TOTAL KCALS, 120G DEXTROSE, 96G PROTEIN, 1200ML TOTAL VOLUME TPN PROVIDES 70% ESTIMATED KCAL NEEDS REPLETE LYTES NEEDED MONITOR PO INTAKE OF C/L DIET GOAL TO REDUCE TPN PO INTAKE IMPROVES
--- NOTE | 2024-09-23 11:19 | PM.CCPN ---
Subjective Subjective Date of Service: 09/23/24 Interval History: 64-year-old gentleman with underlying COPD on 2-4 L of supplemental oxygen, paranoid schizophrenia, end-stage renal disease on hemodialysis admitted on 09/15/2024 with alteration of mental status, hypoxia requiring intubation, and profound metabolic acidosis requiring urgent dialysis. Patient uneventfully extubated on 09/16/2024, however he continues with episodes of hypercapnia requiring on/off BiPAP support. Also, though patient mental status has significantly improved, he continues to fail his swallow evaluations and now requires support with TPN. No events overnight. Continues to require BiPAP support for intermittent episodes of hypercapnia. Critical Care Time (minutes): 60 Physical Exam Vital Signs: Vital Signs: Last Vital Signs Temp 97.0 F 09/23/24 08:00 Pulse 73 09/23/24 11:00 Resp 21 H 09/23/24 11:00 BP 113/77 09/23/24 11:00 Pulse Ox 92 09/23/24 11:00 O2 Del Method Oxymask 09/23/24 11:00 O2 Flow Rate 1 09/23/24 11:00 FiO2 35 09/23/24 08:00 BMI result Body Mass Index 26.1 Const: General: no acute distress, alert and awake Eyes: Sclerae: sclerae normal EOM: EOMs intact bilaterally Neck: Neck: Yes no lymphadenopathy, Yes trachea midline and Yes supple Resp: Effort & Inspection: normal respiratory effort and no respiratory distress Auscultation: crackles (Bilateral) Cardio: Rate: regular rate Rhythm: regular rhythm Heart sounds: no gallops, no murmurs and no rubs GI: Palpation (GI): Soft to palpation and Other GI palpation findings present ( Nontender) Auscultation: normal bowel sounds Extrem: General: Yes no pedal edema, No clubbing and No cyanosis Objective Data Labs 09/23/24 05:05 09/23/24 05:05 Labs: Laboratory Results - last 24 hr 09/22/24 09/22/24 09/22/24 12:20 17:12 18:04 WBC RBC Hgb Hct MCV MCH MCHC RDW Plt Count MPV Immature Gran % (Auto) Neut % (Auto) Lymph % (Auto) [place] % (Auto) Eos % (Auto) Baso % (Auto) Lymph # (Auto) [place] # (Auto) Eos # (Auto) Baso # (Auto) Abs Immat Gran (auto) Absolute Neuts (auto) Absolute Nucleated RBC Nucleated RBC % (auto) VBG pH VBG pCO2 VBG pO2 VBG HCO3 VBG O2 Saturation VBG Base Excess Sodium Potassium Chloride Carbon Dioxide Anion Gap BUN Creatinine Estim Creat Clear Calc Estimated GFR POC Glucose 187 H 273 H Random Glucose Calcium Phosphorus Magnesium Albumin Triglycerides Random Vancomycin 10.2 L 09/22/24 09/23/24 09/23/24 23:55 05:05 05:44 WBC 18.6 H RBC 2.75 L Hgb 8.9 L Hct 28.0 L MCV 101.8 H MCH 32.4 MCHC 31.8 RDW 16.2 H Plt Count 335 D MPV 10.3 Immature Gran % (Auto) 4.6 H Neut % (Auto) 80.0 H Lymph % (Auto) 7.4 L [place] % (Auto) 6.2 Eos % (Auto) 1.3 Baso % (Auto) 0.5 Lymph # (Auto) 1.4 [place] # (Auto) 1.2 Eos # (Auto) 0.3 Baso # (Auto) 0.1 Abs Immat Gran (auto) 0.85 H Absolute Neuts (auto) 14.9 H Absolute Nucleated RBC 0.070 H Nucleated RBC % (auto) 0.4 H VBG pH 7.23 L VBG pCO2 73 VBG pO2 50 VBG HCO3 31 H VBG O2 Saturation 76.0 VBG Base Excess 2.4 Sodium 138 Potassium 3.3 Chloride 97 Carbon Dioxide 27 Anion Gap 17 BUN 64 H Creatinine 4.66 H* Estim Creat Clear Calc 16.8 Estimated GFR 13 POC Glucose 145 H Random Glucose 169 H Calcium 10.4 H Phosphorus 4.3 Magnesium 2.1 Albumin 4.0 Triglycerides 131 Random Vancomycin Microbiology Microbiology Results: Microbiology 09/15/24 12:10 Blood - Venous Blood Culture - Final No growth after 5 days. 09/15/24 11:03 Blood - Venous Blood Culture - Final No growth after 5 days. 09/15/24 Unknown Urine Catheterized - Canas Catheter Urine Culture - Final No growth. Progress Note: A&P Assessment and plan (1) Chronic paranoid schizophrenia: Status: Acute (2) End stage renal disease: Status: Acute (3) Respiratory failure: Status: Acute (4) COPD (chronic obstructive pulmonary disease): Status: Acute (5) Acute on chronic respiratory failure with hypoxia and hypercapnia: Status: Acute Plan Assessment: 64-year-old gentleman with underlying COPD on supplemental oxygen burning schizophrenia and ESRD on hemodialysis admitted with acute respiratory failure initially requiring ventilatory support, now extubated requiring on/off BiPAP support. Plan: Neuro: Encephalopathy resolved. Cardiac: Required pressor likely secondary to increased volume removal with dialysis. Continue to titrate off pressor support as tolerated. Continue chronic midodrine. Pulmonary: Acute chronic hypoxic and hypercapnic respiratory failure secondary to pulmonary edema requiring BiPAP support on/off. Still remains approximately 6 L positive. Continue to titrate off BiPAP support as tolerated. Renal: ESRD on hemodialysis. Nephrology service care appreciated. Endo: No acute issues. GI: No acute issues. ID: No acute issues Heme/Onc: No acute issues. Psych: No acute issues. Underlying paranoid schizophrenia. Miscellaneous: No acute issues. Prophylaxis: Heparin Diet: TPN/clear liquids Critical care time spent: 60 Quality Stroke Does the patient have a stroke diagnosis?: No VTE Prior VTE?: No VTE Risk Level:: Medical - moderate - high VTE Device Contraindication: N/A - Device Ordered VTE Drug Contraindication: N/A - Med Ordered
[2024-09-23 12:02] LABS: Glucose, Whole Blood 211 mg/dL (60-115)
--- NOTE | 2024-09-23 13:00 | CA_ITS ---
Transthoracic Echocardiogram Patient (Last, First, Middle): Narinder Lara A Gender: Male Date of : 1960 Age: 64 Procedure Date: 09/23/2024 Procedure Type: Transthoracic Echocardiogram Location: ICU Height: 180.34 cm Weight: 84.82 kg BSA: 2.05 m2 Heart Rate: bpm BP: 121 / 37 mmHg Reheater Helper: Referring MD: Juan Manuel Holloway MD Symptoms: Dyspnea Study Quality: Technically Difficult ECG Rhythm: Sinus Conclusions: - Normal left ventricular cavity size. There is normal left ventricular wall thickness. The left ventricular systolic function is normal. The visually estimated ejection fraction is between 55-60%. - Moderately increased right ventricular cavity size. There is moderately decreased right ventricular systolic function. Findings Left Ventricle Normal left ventricular cavity size. There is normal left ventricular wall thickness. The left ventricular systolic function is normal. The visually estimated ejection fraction is between 55-60%. There is no evidence of regional wall motion abnormalities. There is abnormal septal motion with excessive respiratory change. Diastolic function is indeterminate on the basis of available data. Right Ventricle Moderately increased right ventricular cavity size. There is moderately decreased right ventricular systolic function. Atria The left atrium is normal in size. The right atrium is mildly dilated. Aortic Valve There is a normal trileaflet aortic valve. There is no aortic valve stenosis. There is no aortic valve regurgitation. Mitral Valve The mitral valve appears normal. There is no mitral valve regurgitation. There is no mitral valve stenosis. Pulmonic Valve The pulmonic valve was not well visualized. Tricuspid Valve Normal tricuspid valve structure. There is trace tricuspid valve regurgitation. Normal right atrial pressure. There is no evidence of pulmonary hypertension. Venous The inferior vena cava is normal in size and collapses greater than 50% with inspiration. Pericardium/Pleural Prominent epicardial adipose tissue noted. There is no evidence of pericardial effusion. Prior Study Comparison Changes noted compared to prior study dated: 01/11/2023. Moderate RV dilation and RV dysfunction. Measurements 2D Linear Measurements IVSd: 1.02 0.6-0.9/0.6-1.0 cm LVIDd: 4.31 3.9-5.3/4.2-5.9 cm LVIDd Index: 2.10 2.4-3.2/2.2-3.1 cm/m2 LVIDs: 2.48 2.0-3.6 cm LVPWd: 1.06 0.7-1.1 cm Ao Root: 2.70 2.1-3.5 cm LA Diam: 2.90 2.7-3.8/3.0-4.0 cm LAIDs Index: 1.41 1.5-2.3 cm/m2 LV Mass: 188.09 67-162/88-224 g LV Mass Index: 91.75 43-95/49-115 g/m2 LVOT Diam: 2.10 3.0+(-)1.3 cm Mitral Valve MV Pk E: 0.47 MV PK A: 0.64 MV Decel Time: 298.00 E/A: 0.70 E'Lateral: 7.94 E'Medial: 9.03 E/E' Med: 5.20 E/E' Lat: 5.90 PHT: 87.00 MVA PHT: 2.53 Decel [place]edar: 1.58 Aortic Valve AoV Pk Db: 1.70 AoV Mn Db: 1.13 AoV VTI: 0.28 AoV Pk Grad: 12.00 Aov Mn Grad: 6.00 VANESSA Cont.VTI: 1.87 LVOT LVOT Pk Db: 0.88 LVOT Mn Db: 0.50 LVOT VTI: 0.15 LVOT Pk Grad: 3.00 LVOT Mn Grad: 1.00 LVOT Diam: 2.10 LVOT Area: 3.46 Diastolic Function MV Pk E: 0.47 MV Pk A: 0.64 E/A: 0.70 E'Medial: 9.03 E/E' Med: 5.20 E' Laterial: 7.94 E/E' Lat: 5.90 Right Ventricle TAPSE (mm): 24.00 TVS' Db: 17.00 Tricuspid Valve TR Pk Db: 2.13 TR Pk Grad: 18.00 RA Press: 3.00 RVSP: 21.00 Great Vessels Aorta Ao Root-2D: 2.70 2.0-3.7 cm Ao Asc: 3.30 2.1-3.4 cm Pulmonary Valve PV Pk Db: 1.06 Peak PV Grad: 4.00 Updated in Other Vendor System with Status of Final Noam Saldana MD electronically signed on 09/23/2024 4:38:17 PM with status of Final
--- NOTE | 2024-09-23 13:43 | MHC.SL.SWA ---
Speech Pathologist Impression:Risk of Aspiration, Oropharygneal Dysphagia Risk of Aspiration Due to: Compromised Respiratory Status Dysphasia Diet Status: No Change Liquid Consistency and Strategies for Safe Swallow: Liquid Intake Recommendation: [place] Thick Liquid Intake Strategies: Small Sips Double Swallow Solid Food Consistency: Dietary Recommendations: liquid diet Additional Modifications to Solid Foods: Small Sips: cup, straw or spoonful sips appropriate Upright positioning during and after PO for 30 minutes Oral Medication Intake: NPO Please contact the pharmacy regarding appropriate crushable or liquid drug formulations that are available whenever modified delivery is recommended. Supervision While Eating and Drinking for Safe Swallow: PO with DUCT CLEANER Swallowing Recommended Treatments: Compens. Strategy Educat. Recommendation for Speech: Inpatient Speech Therapy Modified Barium Swallow Study - Inpatient Modified Barium Swallow Study - Outpatient Comment: DUCT CLEANER to re-evaluate when appropriate. He may benefit from instrumental exam to further evaluate (MBSS) when stable. Frequency/Duration: Date Range for Service Req: Timeline to reassess: Journalism Internship Clinican/Clinical Fellow: No Supervisory Statement: I have reviewed and agree with the student/clinical fellow's documentation: N/A Speech Language Pathologist: Lluvia Alegria M.A., CCC-DUCT CLEANER
--- NOTE | 2024-09-23 17:40 | PC.NURSE ---
Plan for UF today cancelled due to low BP, plan for tomorrow Dialysis. Monitor PO intake an assess need of TPN tomorrow. Patient off and on Bipap today as per request, tolerating Meds crushed in apple sauce.
[2024-09-23 18:06] LABS: Glucose, Whole Blood 171 mg/dL (60-115)
[2024-09-23] MEDS: Parenteral Nutrition 1,200 ML 50 ML IV (20:36)
[2024-09-23] MEDS: Famotidine 20 MG TABLET PO (20:38)
[2024-09-24] VITALS (58 sets, daily range): BP systolic 62–145; BP diastolic 19–102; PULSE 73–126; RESP 18–46; TEMP 36.1–37.1; O2SAT 88–96; BMI 25.9
[2024-09-24 00:09] LABS: Glucose, Whole Blood 266 mg/dL (60-115)
[2024-09-24] MEDS: Insulin Lispro 100 UNIT/ML 3 ML VIAL SUBCUT ×4 (00:26→17:47)
[2024-09-24] MEDS: 0.9 % Sodium Chloride Flush 3 ML SYRINGE IVFLUSH ×3 (00:26→16:01)
[2024-09-24] MEDS: Heparin Sodium,Porcine 5,000 UNIT/ML VIAL 5000 UNIT SUBCUT ×3 (00:26→17:10)
[2024-09-24] MEDS: Norepinephrine Bitartrate/D5W 8 MG/250 ML PLAST..BAG 7.68 MG IVCONT (05:19)
[2024-09-24] MEDS: Piperacillin Sodium/Tazobactam 4.5 GM in 0.9 % Sodium Chloride 100 ML IV ×2 (05:27→17:36)
[2024-09-24 05:35] LABS: VBG Base Excess -3.1 mmol/L; VBG HCO3 23 mmol/L (22-26); VBG pCO2 50 mmHg; VBG pH 7.27 (7.32-7.43); VBG pO2 48 mmHg
[2024-09-24 05:35] LABS: Hemoglobin 8.1 g/dl (14.0-18.0); Mean Corpuscular HGB Conc 32.4 g/dl (31.0-36.0); Mean Corpuscular Hemoglobin 32.7 pg (27.0-33.0); Mean Corpuscular Volume 100.8 fL (80.0-98.0); Mean Platelet Volume 10.2 fL (9.4-12.4); NRBC Pct Auto 0.7 /100WBC (0.0-0.2); Platelet Count 381 X10*3/uL (160-400); Red Blood Count 2.48 X10*6/uL (4.60-5.80); Red Cell Distribution Width 16.6 % (11.0-16.0)
[2024-09-24 05:36] LABS: Venous Blood Gas Refer to POC result
[2024-09-24 06:02] LABS: Albumin Level 3.6 g/dL (3.5-5.0); Anion Gap 23 (12-20); Calcium 11.1 mg/dL (8.4-10.2); Carbon Dioxide 21 mmol/L (22-29); Chloride 96 mmol/L (96-108); Creatinine Clr Calc Pharmacy 11.8; Estimated Glomerular Filt Rate 8; Glucose Random 207 mg/dL (60-115); Magnesium 2.1 mg/dL (1.6-2.6); Phosphorus 2.9 mg/dL (2.7-4.5); Potassium 3.7 mmol/L (3.3-5.1); Sodium 136 mmol/L (135-145)
[2024-09-24 06:06] LABS: Band Neutrophils Percent 4 % (3-5); Basophils Abs Manual 0.3 X10*3/uL (0.0-0.2); Basophils Percent Manual 1 % (0-2); Lymphocytes Absolute Manual 1.1 X10*3/uL (1.2-4.9); Lymphocytes Percent Manual 4 % (20-40); Metamyelocytes Absolute 0.6 X10*3/uL; Metamyelocytes Percent 2 %; Monocytes Absolute Manual 0.6 X10*3/uL (0.1-1.2); Monocytes Percent Manual 2 % (2-11); Myelocytes Absolute 0.3 X10*/uL; Myelocytes Percent 1 %; Neutrophils Absolute Manual 25.2 X10*3/uL (2.0-8.3); Neutrophils Percent Manual 86 % (45-73)
[2024-09-24 06:07] LABS: Blood Urea Nitrogen 136 mg/dL (9-16); RBC Morphology NOTED
[2024-09-24 06:08] LABS: Basophilic Stippling 1+ (0-2) /OIF; Large Platelet PRESENT; Macrocytosis 1+ (5-14) /OIF; Platelet Estimate NORMAL (NORMAL); Platelet Morphology Comment NOTED; Polychromasia 1+ (0-2) /OIF
[2024-09-24] MEDS: Midodrine HCl 5 MG TABLET PO (07:50)
[2024-09-24] MEDS: Aspirin 81 MG TAB.CHEW PO (07:50)
[2024-09-24] MEDS: Amiodarone/Dextrose 150 MG/100 ML PLAST..BAG 600 MG IV (09:05)
[2024-09-24] MEDS: Amiodarone HCL 900 MG in 0.9 % Sodium Chloride 500 ML 34.53 MG IVCONT (09:15)
[2024-09-24] MEDS: Heparin Sodium,Porcine 5,000 UNIT/ML VIAL 4000 UNIT IVPUSH (09:39)
--- NOTE | 2024-09-24 09:58 | MHC.CLN ---
F/U DISCUSSED AT ROUNDS WITH DIET ADVANCED TO C/L NECTAR THICK PO INTAKE REMAINS POOR REVIEWED LABS DISCUSSED WITH PHARMACY PT RECEIVING TPN 8/10 SOLUTION AT 50ML/HR WITH 58G LIPIDS PROVIDES 1376 TOTAL KCALS, 120G DEXTROSE, 96G PROTEIN (1.1G/KG), 1200ML TOTAL VOLUME TPN PROVIDES 70% ESTIMATED KCAL NEEDS REPLETE LYTES NEEDED CONTINUE TO MONITOR PO INTAKE OF C/L DIET GOAL TO REDUCE TPN PO INTAKE IMPROVES
--- NOTE | 2024-09-24 10:20 | MHC.SLORD ---
Speech Language Pathology Order Status: SCHOOL JANITOR returned to unit in the morning, pt on dialysis, RN consulted. Pt will be on dialysis for 4 hours. Pt is tolerating meds crushed in puree and NTL liquids as ordered. SCHOOL JANITOR to re-assess for diet advance as appropriate.
--- NOTE | 2024-09-24 11:38 | PC.NURSE ---
Patient receiving dialysis this [facility] and [facility], provider aware, Amiodarone loading dose given at 0905 and Amiodarone gtt started as ordered, ST 100-110's at current time. Patient becoming hypotensive with dialysis and Levophed gtt titrated as per OCT, Provider aware.
[2024-09-24 11:58] LABS: Glucose, Whole Blood 274 mg/dL (60-115)
--- NOTE | 2024-09-24 12:05 | P.PNCC_ITS ---
Subjective Subjective Date of Service: 09/24/24 Interval History: 64-year-old gentleman with underlying COPD on 2-4 L of supplemental oxygen, paranoid schizophrenia, end-stage renal disease on hemodialysis admitted on 09/15/2024 with alteration of mental status, hypoxia requiring intubation, and profound metabolic acidosis requiring urgent dialysis. Patient uneventfully extubated on 09/16/2024, however he continues with episodes of hypercapnia requiring on/off BiPAP support. Also, though patient mental status has significantly improved. No events overnight. Continues to require BiPAP support for intermittent episodes of hypercapnia. Today with an episodes of VT versus AFib with aberration during dialysis requiring amiodarone drip. Critical Care Time (minutes): 60 Physical Exam 2 Vital Signs: Vital Signs: Last Vital Signs Temp 98.8 F 09/24/24 08:00 Pulse 114 H 09/24/24 11:51 Resp 35 H 09/24/24 11:23 BP 85/19 L 09/24/24 11:51 Pulse Ox 89 L 09/24/24 11:00 O2 Del Method BiPAP 09/24/24 11:00 O2 Flow Rate 4 09/24/24 08:00 FiO2 60 09/24/24 11:33 BMI result Body Mass Index 25.9 Const: General: no acute distress, alert and awake Eyes: Sclerae: sclerae normal EOM: EOMs intact bilaterally Neck: Neck: Yes no lymphadenopathy, Yes trachea midline and Yes supple Resp: Effort & Inspection: normal respiratory effort and no respiratory distress Auscultation: clear to auscultation bilaterally Cardio: Rate: tachycardic Rhythm: abnormal rhythm irregularly irregular Heart sounds: no gallops, no murmurs and no rubs GI: Palpation (GI): Soft to palpation and Other GI palpation findings present ( Nontender) Auscultation: normal bowel sounds Extrem: General: Yes no pedal edema, No clubbing and No cyanosis Objective Data Labs 09/24/24 05:22 09/24/24 05:22 Labs: Laboratory Results - last 24 hr 09/23/24 09/23/24 09/24/24 18:03 23:51 05:22 WBC 28.0 H RBC 2.48 L Hgb 8.1 L Hct 25.0 L MCV 100.8 H MCH 32.7 MCHC 32.4 RDW 16.6 H Plt Count 381 MPV 10.2 Immature Gran % (Auto) Cancelled Neut % (Auto) Cancelled Lymph % (Auto) Cancelled Sumner % (Auto) Cancelled Eos % (Auto) Cancelled Baso % (Auto) Cancelled Lymph # (Auto) Cancelled Sumner # (Auto) Cancelled Eos # (Auto) Cancelled Baso # (Auto) Cancelled Abs Immat Gran (auto) Cancelled Absolute Neuts (auto) Cancelled Absolute Nucleated RBC 0.200 H Nucleated RBC % (auto) 0.7 H Neutrophils % (Manual) 86 H Band Neutrophils % 4 Lymphocytes % (Manual) 4 L Monocytes % (Manual) 2 Basophils % (Manual) 1 Metamyelocytes % 2 Myelocytes % 1 Abs Neuts (Manual) 25.2 H Lymphocytes # (Manual) 1.1 L Monocytes # (Manual) 0.6 Basophils # (Manual) 0.3 H Metamyelocytes # 0.6 Myelocytes # 0.3 Platelet Estimate NORMAL Large Platelets PRESENT Plt Morphology Comment NOTED RBC Morphology NOTED Polychromasia 1+ (0-2) Basophilic Stippling 1+ (0-2) Macrocytosis 1+ (5-14) VBG pH VBG pCO2 VBG pO2 VBG HCO3 VBG O2 Saturation VBG Base Excess Sodium 136 Potassium 3.7 Chloride 96 Carbon Dioxide 21 L Anion Gap 23 H BUN 136 H Creatinine 6.61 H* Estim Creat Clear Calc 11.8 Estimated GFR 8 POC Glucose 171 H 266 H Random Glucose 207 H Calcium 11.1 H D Phosphorus 2.9 Magnesium 2.1 Albumin 3.6 09/24/24 09/24/24 05:31 11:41 WBC RBC Hgb Hct MCV MCH MCHC RDW Plt Count MPV Immature Gran % (Auto) Neut % (Auto) Lymph % (Auto) Sumner % (Auto) Eos % (Auto) Baso % (Auto) Lymph # (Auto) Sumner # (Auto) Eos # (Auto) Baso # (Auto) Abs Immat Gran (auto) Absolute Neuts (auto) Absolute Nucleated RBC Nucleated RBC % (auto) Neutrophils % (Manual) Band Neutrophils % Lymphocytes % (Manual) Monocytes % (Manual) Basophils % (Manual) Metamyelocytes % Myelocytes % Abs Neuts (Manual) Lymphocytes # (Manual) Monocytes # (Manual) Basophils # (Manual) Metamyelocytes # Myelocytes # Platelet Estimate Large Platelets Plt Morphology Comment RBC Morphology Polychromasia Basophilic Stippling Macrocytosis VBG pH 7.27 L VBG pCO2 50 VBG pO2 48 VBG HCO3 23 VBG O2 Saturation 72.0 VBG Base Excess -3.1 Sodium Potassium Chloride Carbon Dioxide Anion Gap BUN Creatinine Estim Creat Clear Calc Estimated GFR POC Glucose 274 H Random Glucose Calcium Phosphorus Magnesium Albumin Microbiology Microbiology Results: Microbiology 09/15/24 12:10 Blood - Venous Blood Culture - Final No growth after 5 days. 09/15/24 11:03 Blood - Venous Blood Culture - Final No growth after 5 days. 09/15/24 Unknown Urine Catheterized - Canas Catheter Urine Culture - Final No growth. Progress Note: A&P Assessment and plan (1) Chronic paranoid schizophrenia: Status: Acute (2) Atrial fibrillation with rapid ventricular response: Status: Acute (3) End stage renal disease: Status: Acute (4) COPD (chronic obstructive pulmonary disease): Status: Acute (5) Acute on chronic respiratory failure with hypoxia and hypercapnia: Status: Acute Plan Assessment: 64-year-old gentleman with underlying COPD on supplemental oxygen burning schizophrenia and ESRD on hemodialysis admitted with acute respiratory failure initially requiring ventilatory support, now extubated requiring on/off BiPAP support. Plan: Neuro: Encephalopathy resolved. Cardiac: Required pressor likely secondary to increased volume removal with dialysis. Continue to titrate off pressor support as tolerated. Continue chronic midodrine. AFib with RVR requiring amiodarone drip. Pulmonary: Acute chronic hypoxic and hypercapnic respiratory failure secondary to pulmonary edema requiring BiPAP support on/off. Still remains approximately 6 L positive. Continue to titrate off BiPAP support as tolerated. Renal: ESRD on hemodialysis. Nephrology service care appreciated. Endo: No acute issues. GI: No acute issues. ID: No acute issues Heme/Onc: No acute issues. Psych: No acute issues. Underlying paranoid schizophrenia. Miscellaneous: No acute issues. Prophylaxis: Heparin Diet: TPN/clear liquids Critical care time spent: 60 Quality Stroke Does the patient have a stroke diagnosis?: No VTE Prior VTE?: No VTE Risk Level:: Medical - moderate - high VTE Device Contraindication: N/A - Device Ordered VTE Drug Contraindication: N/A - Med Ordered
[2024-09-24] MEDS: Lactated Ringers 1,000 ML 999 ML IV (13:15)
[2024-09-24] MEDS: Albumin Human 25 % 50 ML 100 ML IV (13:29)
[2024-09-24] MEDS: Norepinephrine Bitartrate/D5W 8 MG/250 ML PLAST..BAG 76.78 MG IVCONT (14:34)
[2024-09-24 14:44] LABS: Anion Gap 20 (12-20); Blood Urea Nitrogen 75 mg/dL (9-16); Carbon Dioxide 24 mmol/L (22-29); Chloride 97 mmol/L (96-108); Creatinine Clr Calc Pharmacy 19.3; Estimated Glomerular Filt Rate 15; Glucose Random 304 mg/dL (60-115); Potassium 2.6 mmol/L (3.3-5.1); Sodium 138 mmol/L (135-145)
[2024-09-24] MEDS: Potassium Chloride/H20 40 MEQ/100 ML PIGGYBACK 100 MEQ IV ×3 (14:52→17:10)
--- NOTE | 2024-09-24 15:52 | MHC.CM.PN ---
Pt on intermittent Bipap and HD on M, W, F. Had episode of AF vs VT today: started on Amiodorone gtt: Referred to several STR centers: CM to follow for finalization of d/c planning
--- NOTE | 2024-09-24 16:56 | HO.WOUND ---
Wound Consult: Initial 64yr old?male admitted to [facility] [place] on 09/15/24 - See progress notes and H&P for detailed history.? Wound consult placed for Right Buttock and bridge of nose.? Patient agreeable to assessment and photo documentation.? Right Buttock and Perianal area Etiology: ?Unclear etiology for Right buttock pigmentation - not consistent with pressure the irregular pigmentation pattern is more consistent with friction than pressure. There is evidence to suggest friction and moisture are chronic given various hyper and hypo pigmented tissue. The perianal area was noted for MASD IAD (Moisture Associated Skin Damage - Incontinence Associated Dermatitis) Present on Admission Wound Bed: Right buttock dark intact nonblanchable irregularly pigmented tissue Perianal red moist clean tissue - mirrored wound edges Drainage / Odor: serousang noted Edges: ? attached Amira wound: ? No Induration, Fluctuance or Warmth noted Pain: denies Goals of Treatment: ? barrier cream to protect from friction and moisture Bridge of nose Etiology: Behavioral Analyst related Stage 2 Pressure Injury Wound Bed: stable dry scab Drainage / Odor: none Edges: ? attached Amira wound: dry intact tissue ? No Induration, Fluctuance or Warmth noted Pain: denies Goals of Treatment:Continue to off load pressure - if needed to be returned to device that would apply pressure apply Mepilex lite foam dressing prior to device use. Recommendations: 1. Turn and Reposition every 2 hours and as needed for patient comfort.? Use pillows or wedges to support off loading positions. 2. Off Load all bony prominences with use of pillows and heel boots if needed.? Apply Preventative foams where needed. ? 3. Monitor for incontinence and moisture control, use barrier creams when needed for prevention and treatment. 4. Provide adequate and supplemental nutrition.? 5. Continue low air loss mattress. 6. When applicable maintain blood glucose levels per Providers order. 7. Bridge of Nose - Monitor for wound healing. If device that apply's pressure to bridge of nose must be used apply skin prep and Mepilex Lite prior to use of device. 8. Right buttock and Perianal - Cleanse with Ph balanced wipes, pat dry. Apply barrier cream twice daily and after each episode of incontinence. Off load pressure with Q2hr turns. Re-consult wound care Nurse for wound deterioration or wound changes.
[2024-09-24 17:44] LABS: Glucose, Whole Blood 314 mg/dL (60-115)
[2024-09-24] MEDS: Norepinephrine Bitartrate/NS 32 MG/250 ML PLAST..BAG 22.89 MG IVCONT (18:29)
[2024-09-24 18:31] LABS: Vancomycin Random 11.1 mcg/mL (15-20)
[2024-09-24] MEDS: Midazolam HCl 2 MG/2 ML VIAL 1 MG IVPUSH (19:55)
[2024-09-24] MEDS: vancomycin HCL 500 MG in 0.9 % Sodium Chloride 100 ML 110 MG IV (20:36)
[2024-09-24] MEDS: Parenteral Nutrition 1,200 ML 50 ML IV (20:37)
[2024-09-24] MEDS: dexmedeTOMIDidine HCL/NS 400 MCG/100 ML INFUS..BTL 21.05 MCG IVCONT (23:33)
[2024-09-25] VITALS (81 sets, daily range): BP systolic 50–186; BP diastolic 25–157; PULSE 75–105; RESP 15–37; TEMP 34.9–36.9; O2SAT 88–100; BMI 25.3
[2024-09-25 00:38] LABS: Venous Blood Gas Refer to POC result
[2024-09-25] MEDS: Vasopressin 20 UNIT/100 ML INFUS..BTL 12 UNIT IVCONT ×4 (00:38→21:35)
[2024-09-25 00:39] LABS: VBG Base Excess -9.5 mmol/L; VBG HCO3 18 mmol/L (22-26); VBG pCO2 50 mmHg; VBG pH 7.16 (7.32-7.43); VBG pO2 32 mmHg
[2024-09-25] MEDS: propofoL 200 MG/20 ML VIAL 70 MG IVPUSH (00:47)
[2024-09-25] MEDS: propofoL 1,000 MG/100 ML VIAL 10.1 MG IVCONT (01:09)
[2024-09-25] MEDS: Sodium Bicarbonate 8.4% 150 MEQ in Dextrose 5 % 850 ML 100 MEQ IV (01:10)
[2024-09-25] MEDS: EPINEPHrine 5 MG in Dextrose 5 % 250 ML 51.53 MG IVCONT (01:40)
[2024-09-25] MEDS: Dextrose 50 % 25 GM/50 ML SYRINGE IVPUSH (02:00)
[2024-09-25] MEDS: Insulin Regular, Human 100 UNIT/ML 10 ML VIAL 10 UNIT IVPUSH (02:00)
[2024-09-25] MEDS: Calcium Gluconate/NaCl,Iso-Osm 1 GM/50 ML PLAST..BAG IV (02:00)
[2024-09-25] MEDS: Norepinephrine Bitartrate/NS 32 MG/250 ML PLAST..BAG 39.47 MG IVCONT (02:40)
[2024-09-25] MEDS: EPINEPHrine 5 MG in Dextrose 5 % 250 ML 206.12 MG IVCONT ×2 (03:30→05:00)
[2024-09-25] MEDS: Albumin Human 25 % 100 ML 133.33 ML IV ×2 (03:43→04:30)
[2024-09-25 04:50] LABS: Anion Gap 28 (12-20); Blood Urea Nitrogen 105 mg/dL (9-16); Calcium 10.4 mg/dL (8.4-10.2); Carbon Dioxide 15 mmol/L (22-29); Chloride 101 mmol/L (96-108); Creatinine Clr Calc Pharmacy 15.1; Estimated Glomerular Filt Rate 11; Glucose Random 205 mg/dL (60-115); Potassium 6.9 mmol/L (3.3-5.1); Sodium 137 mmol/L (135-145)
[2024-09-25 05:01] LABS: Hematocrit 22.6 % (42.0-52.0); Mean Corpuscular Hemoglobin 33.8 pg (27.0-33.0); Mean Corpuscular Volume 109.2 fL (80.0-98.0); Mean Platelet Volume 11.2 fL (9.4-12.4); Platelet Count 402 X10*3/uL (160-400); Red Blood Count 2.07 X10*6/uL (4.60-5.80); Red Cell Distribution Width 18.1 % (11.0-16.0)
[2024-09-25 05:02] LABS: White Blood Count 55.3 X10*3/uL (4.8-10.8)
--- NOTE | 2024-09-25 05:05 | W.PM.CCHP ---
Procedures Date of Service Date of Service: 09/25/24 <Kamini Addison NP - Last Filed: 09/25/24 05:08> 09/25/24 <Juan Manuel Holloway MD - Last Filed: 09/25/24 14:49> Intubation Intubation Comments: The patient was unable to consent due to altered mental status and lethargy. He was emergently intubated d/t metabolic acidosis and hemodynamic instability despite BiPAP use. He was preoxygenated with Ambu-bag 100%. RSI was carried out with the meds below. A moderate amount dark brown fluid was suctioned from the oropharynx. The glottis was then easily visualized with 4 GlideScope, and the trachea was intubated with a 7.5 ETT via? indirect video visualization, atraumatic.? BSBE, +CO2, SpO2 maintained.? The tube was secured at 27 cm at the upper lip. The patient tolerated the procedure well with no complications.? Placement confirmed with chest x-ray. <Kamini Addison NP - Last Filed: 09/25/24 05:08> Consent for Procedure: Emergent-no informed consent obtained <Kamini Addison NP - Last Filed: 09/25/24 05:08> Time out performed: Yes <SHERON Arroyo Last Filed: 09/25/24 05:08> Sedative: propofol <Kamini Addison NP - Last Filed: 09/25/24 05:08> Mg given: 70 <Kamini Addison NP - Last Filed: 09/25/24 05:08> Laryngoscope: fiber optic video scope <SHERON Arroyo Last Filed: 09/25/24 05:08> ET tube size: 7.5 <Kamini Addsion NP - Last Filed: 09/25/24 05:08> ET tube uncuffed: Yes <SHERON Arroyo Last Filed: 09/25/24 05:08> Tube secured depth (cm): 27 <SHERON Arroyo Last Filed: 09/25/24 05:08> Tube placement confirmation: visualized tube passing through cords, equal breath sounds bilaterally, no breath sounds over epigastrium and confirmation by capnometry <SHERON Arroyo Last Filed: 09/25/24 05:08> Patient tolerated procedure: well <Kamini Addison NP - Last Filed: 09/25/24 05:08> Intubation complications: none <Kamini Addison NP - Last Filed: 09/25/24 05:08>
[2024-09-25 05:08] LABS: Lactic Acid 10.5 mmol/L (0.5-2.0)
--- NOTE | 2024-09-25 05:08 | PM.CCN ---
Critical Care Event Note Summary Date of Service: 09/25/24 Code activated: No Narrative: This case had a high probability of a clinically significant, sudden, or life threatening deterioration of this patient's condition which required my full and direct attention, intervention and personal management. Critical Care Time (minutes): 90 Comment: Pt?s mental status progressively more altered throughout the evening; pulling off BiPap mask with rose O2 desat down to 80?s. Pressor requirements increasing. He became lethargic as the evening wore on, responsive to light pain only. At approx 12 AM, VBG showed respiratory acidosis with? pH of 7.16. He was emergently intubated. He was given Bicarb. Both vasopressin and epinephrine drips were added for hemodynamic stability. He was treated for hyperkalemia. WBC 55.28; blood cultures, lactic acid drawn. EKG showed Sinus Rhythm with a short OR.
[2024-09-25 05:09] LABS: Reflex Lactate? Lactic Acid Added
[2024-09-25 05:09] LABS: Anion Gap 30 (12-20); Blood Urea Nitrogen 106 mg/dL (9-16); Calcium 10.1 mg/dL (8.4-10.2); Carbon Dioxide 14 mmol/L (22-29); Chloride 102 mmol/L (96-108); Estimated Glomerular Filt Rate 11; Glucose Random 161 mg/dL (60-115); Sodium 138 mmol/L (135-145)
[2024-09-25 05:10] LABS: Potassium 7.6 mmol/L (3.3-5.1)
[2024-09-25 06:05] LABS: Glucose, Whole Blood 298 mg/dL (60-115)
[2024-09-25] MEDS: Piperacillin Sodium/Tazobactam 4.5 GM in 0.9 % Sodium Chloride 100 ML IV ×2 (06:19→17:38)
[2024-09-25] MEDS: Insulin Lispro 100 UNIT/ML 3 ML VIAL SUBCUT ×2 (06:20→12:40)
[2024-09-25 06:26] LABS: VBG Base Excess -17.4 mmol/L; VBG HCO3 11 mmol/L (22-26); VBG pCO2 40 mmHg; VBG pH 7.05 (7.32-7.43); VBG pO2 63 mmHg
[2024-09-25 06:30] LABS: Venous Blood Gas Refer to POC result
[2024-09-25] MEDS: Sodium Bicarbonate 8.4% 50 MEQ/50 ML SYRINGE IVPUSH ×3 (06:40→22:07)
[2024-09-25 06:46] LABS: Mean Corpuscular HGB Conc 29.8 g/dl (31.0-36.0); Mean Corpuscular Hemoglobin 34.2 pg (27.0-33.0); Mean Platelet Volume 11.1 fL (9.4-12.4); Platelet Count 319 X10*3/uL (160-400); Red Blood Count 1.55 X10*6/uL (4.60-5.80); Red Cell Distribution Width 18.1 % (11.0-16.0)
[2024-09-25 06:58] LABS: White Blood Count 63.5 X10*3/uL (4.8-10.8)
[2024-09-25 07:01] LABS: Hematocrit 17.8 % (42.0-52.0); Hemoglobin 5.3 g/dl (14.0-18.0); Mean Corpuscular Volume 114.8 fL (80.0-98.0); NRBC Pct Auto 12.2 /100WBC (0.0-0.2)
--- NOTE | 2024-09-25 07:08 | PC.NURSE ---
2000: Upon initial assessment, patient A&Ox3, vague to situation. Forgetful, restless and requiring frequent redirection. Awakens to voice, able to follow simple commands. ST on tele, frequent PACS. SBP 80s/90s, BP cuff rotated and reaffixed to various sites for best readings. 4x concentrated Levophed running through TLC at 0.58 mcg/kg/min, see MAR. Patient on BiPAP rate of 14, 17/7, and 35% to maintain O2 goal 88-92%. Patient restless and repeatedly removing BiPAP mask. Lung sounds diminished, RR rate 30s-40s. SHERNO Addison aware, 1mg Versed IVP ordered for restlessness. Abdomen large, distended and soft, active?bowel sounds x4. TPN infusing at 50mL/hr, see MAR. Patient anuric, last dialysis 09/24/24. Fistula to left upper arm with positive bruit. Skin largely warm and intact, see wound note. Patient moves all extremities, denies pain, repositioned with assistance as tolerated. Bed locked in lowest position, bed alarm on, avasure camera in place. Approx 2330: Patient increasingly?restless, repeatedly removing BiPAP mask and desaturating to low 80s, slow to recover. Precedex gtt ordered and started, see MAR.? Approx 0000: Patient restless, labs drawn per SHERON Addison. All critical lab results reported to ART HANDLER. Approx 0030: Patient with significant decrease in mental status, decision made by SHERON Addison to intubate. Total of 70mg IVP Propofol given for RSI, see MAR. Patient intubated with 7.5 ETT, 25cm?@ lip. Bilateral breath sounds to auscultation, positive color change via capnography. ETT placement confirmed via pCXR, decision made to advance tube to 27cm?@ lip. Moderate amount of liquid brown secretions suctioned from mouth during and after intubation. See vent assessment for settings. Approx 0130: Patient with persistent hypotension despite 4x concentrated levo maxed (see MAR for titrations) and vasopressin gtt. Epi gtt added per SHERON Addison, see MAR for titrations. TPN paused per ART HANDLER due to high potassium reading, see lab results.? Now: SHERON Addison updated on all critical labs and changes in patient status. Bedside report given to oncoming RN. Bed locked in lowest possible position, and bed alarm on.
[2024-09-25 07:33] LABS: Alanine Aminotransferase < 6 U/L (0-40); Albumin Level 4.1 g/dL (3.5-5.0); Bilirubin Direct 0.5 mg/dL (0.0-0.5); Bilirubin Total 0.8 mg/dL (0.0-1.0); Blood Urea Nitrogen 105 mg/dL (9-16); Calcium 10.2 mg/dL (8.4-10.2); Creatinine Clr Calc Pharmacy 13.6; Estimated Glomerular Filt Rate 10; Glucose Random 335 mg/dL (60-115); Magnesium 2.7 mg/dL (1.6-2.6); Phosphorus 7.1 mg/dL (2.7-4.5); Total Protein 6.9 g/dL (6.5-8.0)
--- NOTE | 2024-09-25 07:40 | PC.NURSE ---
hemoglobin 5.3 MD notified via tiger text, 2 units RBCs telephone ordered, emergent, given via pressure bag
[2024-09-25] MEDS: 0.9 % Sodium Chloride Flush 3 ML SYRINGE IVFLUSH ×4 (07:44→23:05)
[2024-09-25 07:46] LABS: Alkaline Phosphatase 103 U/L (39-117); Anion Gap 32 (12-20); Carbon Dioxide 10 mmol/L (22-29); Chloride 98 mmol/L (96-108); Potassium 5.6 mmol/L (3.3-5.1); Sodium 134 mmol/L (135-145)
[2024-09-25 08:00] LABS: Band Neutrophils Percent 10 % (3-5); Lymphocytes Absolute Manual 1.9 X10*3/uL (1.2-4.9); Lymphocytes Percent Manual 3 % (20-40); Metamyelocytes Absolute 2.5 X10*3/uL; Metamyelocytes Percent 4 %; Monocytes Absolute Manual 2.5 X10*3/uL (0.1-1.2); Monocytes Percent Manual 4 % (2-11); Myelocytes Absolute 1.3 X10*/uL; Myelocytes Percent 2 %; Neutrophils Absolute Manual 54.6 X10*3/uL (2.0-8.3); Neutrophils Percent Manual 76 % (45-73); Nucleated Red Blood Cells 10 /100WBC (0-0); Promyelocytes Absolute 0.6 X10*3/uL; Promyelocytes Percent 1 %
[2024-09-25 08:04] LABS: Macrocytosis 2+ (15-30) /OIF; RBC Morphology NOTED
[2024-09-25 08:05] LABS: Hypochromasia 1+ (5-14) /OIF; Polychromasia 2+ (3-5) /OIF; Schistocytes 1+ (0-2) /OIF; Tear Drop Cells 1+ (0-2) /OIF
[2024-09-25 08:06] LABS: Platelet Estimate NORMAL (NORMAL); Platelet Morphology Comment NORMAL
[2024-09-25] MEDS: Amiodarone HCL 900 MG in 0.9 % Sodium Chloride 500 ML 17.27 MG IVCONT (08:17)
[2024-09-25] MEDS: Famotidine/PF 20 MG/2 ML VIAL IVPUSH (08:17)
[2024-09-25] MEDS: Chlorhexidine Gluc Oral Rinse 15 ML MOUTHWASH BUCCAL ×3 (08:18→20:31)
[2024-09-25 08:26] LABS: Troponin-I High Sensitivity 170.7 ng/L (<3.5-35.0)
[2024-09-25 08:31] LABS: Reflex Lactate? 2 Y
[2024-09-25] MEDS: Norepinephrine Bitartrate/NS 32 MG/250 ML PLAST..BAG 33.94 MG IVCONT (08:53)
[2024-09-25] MEDS: Sodium Bicarbonate 8.4% 150 MEQ in Dextrose 5 % 850 ML IV ×3 (08:54→21:33)
--- NOTE | 2024-09-25 09:03 | MHC.SLORD ---
Speech Language Pathology Order Status: Per barrel burner, patient with decreased mentation overnight, pulling off BiPAP resulting in rapid 02 desat. Patient lethargic & responsive to light pain only, developed respiratory acidosis & emergently intubated. MOLDING ROOM SUPERVISOR has been following, consult on hold until patient has been extubated 24-48 hours.
[2024-09-25 09:34] LABS: ~Lactic Acid-LAB USE ONLY 10.5 mmol/L (0.5-2.0)
[2024-09-25] MEDS: propofoL 1,000 MG/100 ML VIAL 15.16 MG IVCONT ×2 (09:39→14:31)
--- NOTE | 2024-09-25 09:49 | MHC.CLN ---
F/U DISCUSSED AT ROUNDS WITH MD PT RE-INTUBATED YESTERDAY WILL CHANGE DIET TO NPO REVIEWED LABS DISCUSSED WITH PHARMACY PT TO CONTINUE TO RECEIVE TPN 8/D10 SOLUTION AT 50ML/HR WITH 58G LIPIDS PROVIDES 1376 TOTAL KCALS (1776TOTAL KCALS WITH SEDATION; 23KCALS/KG BASED ON IBW), 120G DEXTROSE, 96G PROTEIN (1.1G/KG), 1200ML TOTAL VOLUME REPLETE LYTES NEEDED NOTED STAGE 2 TO BRIDGE OF NOSE-PT RECEIVING INCREASED PROTEIN TO PROMOTE WOUND HEALING
[2024-09-25] MEDS: Pantoprazole Sodium 40 MG/10 ML VIAL IVPUSH (10:02)
[2024-09-25] MEDS: iohexoL 350 MG/ML 75 ML INFUS..BTL 85 ML IV (11:11)
[2024-09-25 11:37] LABS: OBS Int Ctl Valid YES; OBS1 POSITIVE (NEGATIVE)
[2024-09-25 12:00] LABS: Glucose, Whole Blood 361 mg/dL (60-115)
[2024-09-25 12:19] LABS: Venous Blood Gas Refer to POC result
[2024-09-25 12:19] LABS: Hemoglobin 7.7 g/dl (14.0-18.0); Mean Corpuscular HGB Conc 32.1 g/dl (31.0-36.0); Mean Corpuscular Hemoglobin 31.8 pg (27.0-33.0); Mean Corpuscular Volume 99.2 fL (80.0-98.0); NRBC Pct Auto 4.7 /100WBC (0.0-0.2); PLT CLUMP 1; Red Blood Count 2.42 X10*6/uL (4.60-5.80); Red Cell Distribution Width 20.4 % (11.0-16.0)
[2024-09-25 12:21] LABS: White Blood Count 45.5 X10*3/uL (4.8-10.8)
[2024-09-25 12:26] LABS: VBG Base Excess -16.2 mmol/L; VBG HCO3 12 mmol/L (22-26); VBG pCO2 42 mmHg; VBG pH 7.07 (7.32-7.43); VBG pO2 62 mmHg
[2024-09-25 12:37] LABS: Anion Gap 34 (12-20); Blood Urea Nitrogen 107 mg/dL (9-16); Calcium 9.5 mg/dL (8.4-10.2); Chloride 96 mmol/L (96-108); Sodium 133 mmol/L (135-145)
[2024-09-25 12:40] LABS: Carbon Dioxide 10 mmol/L (22-29); Creatinine Clr Calc Pharmacy 14.9; Estimated Glomerular Filt Rate 11; Glucose Random 384 mg/dL (60-115); Potassium 6.9 mmol/L (3.3-5.1)
[2024-09-25 12:44] LABS: Lipase 2855 U/L (8-78)
--- NOTE | 2024-09-25 12:54 | PM.GICN ---
History of Present Illness Data of Consult Service Date: 09/25/24 Requesting physician: Juan Manuel Holloway Primary Care Provider: Unknown Physician HPI Reason for consult: GI bleed, pancreatitis with necrosis 64 Y M w/ COPD on 2-4L NC, psychiatric comorbidities, and ESRD on hemodialysis reportedly M/W/F, last dialysis session reportedly 09/12, admitted to [facility] [place] on 09/15 w/ obtundation, found to be in acute respiratory failure, intubated; Labs in ED, showed profound acidosis, admitted for emergent dialysis GI consulted due to presence of black stools/melena in the rectal tube. Unable to obtain any hx from the pt since he is intubated and sedated. 09/25/[address] SCAN SHOWED: 1. Findings consistent with acute pancreatitis as described. There is decreased enhancement of the pancreatic head/uncinate process, compatible with necrosis. No loculated peripancreatic fluid collection is seen. 2. Cholelithiasis. 3. The colon is distended with fluid. There is wall thickening and diverticulosis of the sigmoid colon without evidence of diverticulitis. 4. Possible hemorrhage in the urinary bladder. 5. Heterogeneous hepatic steatosis. Markedly atrophic kidneys. Review of Systems Review of Systems: Yes unobtainable due to endotracheal tube PMFSH Past Medical History Medical History ESRD needing dialysis Chronic paranoid schizophrenia Paranoid ideation HTN (hypertension) End stage renal disease COVID-19 Social History Social History Household Members: Unknown / Unable to assess Household Members Other:: self Housing: Unknown / Unable to assess Do you presently have visiting nurse or other home services: Yes Unable to assess alcohol history related to: Unknown Alcohol intake: unknown Patient Tobacco Use Status: Former Tobacco user Tobacco use type: Cigarette e-Cigarette/Vaping Use: Never Used Second Hand Smoke Exposure: No Use of substances other than those prescribed or required for medical reasons: Unknown Substance Use Type: Unknown Currently Displaying Signs/Symptoms of Drug Intoxication Withdrawal: No Advance Directives: Yes Advance Directives on File: Yes Advance Directives Date on File: 08/31/20 Do you have a plan to hurt others: No Plan service: No Current occupational status: disabled Meds Allergies Allergy/AdvReac Type Severity Reaction Status Date / Time thioridazine [From MELLARIL] Allergy Severe Anaphylaxis, Verified 09/15/24 12:19 tongue swelling Active Medications: Current Medications Aspirin (Aspirin 81 Mg Tab.Chew) 81 mg PO DAILY [facility] Last Admin: 09/24/24 07:50 Dose: 81 mg Chlorhexidine Gluconate (Chlorhexidine Gluc Oral Rinse 15 Ml Mouthwash) 15 ml BUCCAL TID [facility] Last Admin: 09/25/24 08:18 Dose: 15 ml Dextrose (Dextrose 50 % 25 Gm/50 Ml Syringe) 25 gm IVPUSH Q15M PRN; Protocol PRN Reason: per Hypoglycemia Standing Ord. Glucose (Glucose Gel 15 Gm Gel..Gram.) 15 gm PO Q15M PRN; Protocol PRN Reason: per Hypoglycemia Standing Ord. Heparin Sodium (Porcine) (Heparin Sodium,Porcine 5,000 Unit/Ml Vial) 5,000 unit SUBCUT Q8H [facility] Last Admin: 09/25/24 08:36 Dose: Not Given Vancomycin HCl 500 mg/ Sodium (Chloride) 110 mls @ 110 mls/hr IV ONCE ONE Stop: 09/15/24 15:29 Piperacillin Sod/Tazobactam (Sod 4.5 gm/ Sodium Chloride) 100 mls @ 200 mls/hr IV Q12H [facility] Last Infusion: 09/25/24 06:50 Dose: Infused Amiodarone HCl 900 mg/ Sodium (Chloride) 518 mls @ 34.533 mls/hr IVCONT .Q15H1M [facility]; Protocol Last Admin: 09/25/24 08:17 Dose: 0.5 mg/min, 17.27 mls/hr Nutrition (Parenteral) (Parenteral Nutrition) 1,200 mls @ 50 mls/hr IV .Q24H [facility]; Protocol Stop: 09/25/24 20:59 Last Infusion: 09/25/24 01:00 Dose: 0 mls/hr Norepinephrine Bitartrate (Levophed) 32 mg in 250 mls @ 0 mls/hr IVCONT .Q0M [facility]; Protocol Last Titration: 09/25/24 11:57 Dose: 0.66 mcg/kg/min, 26.05 mls/hr Vasopressin (Vasostrict) 20 unit in 100 mls @ 12 mls/hr IVCONT .Q8H20M [facility]; Protocol Last Admin: 09/25/24 06:24 Dose: 0.04 unit/min, 12 mls/hr Sodium Bicarbonate 150 meq/ (Dextrose) 1,000 mls @ 150 mls/hr IV .Q6H40M [facility] Last Admin: 09/25/24 11:34 Dose: Not Given Propofol (Diprivan) 1,000 mg in 100 mls @ 0 mls/hr IVCONT .Q0M [facility]; Protocol Last Admin: 09/25/24 09:39 Dose: 30 mcg/kg/min, 15.16 mls/hr Epinephrine 5 mg/ Sodium (Chloride) 255 mls @ 0 mls/hr IVCONT .Q0M [facility]; Protocol Epinephrine 5 mg/ Dextrose 255 mls @ 0 mls/hr IVCONT .Q0M [facility]; Protocol Last Titration: 09/25/24 07:49 Dose: 0 mcg/kg/min, 0 mls/hr Nutrition (Parenteral) (Parenteral Nutrition) 1,200 mls @ 50 mls/hr IV .Q24H [facility]; Protocol Stop: 09/26/24 20:59 Insulin Human Lispro (Insulin Lispro 100 Unit/Ml 3 Ml Vial) 0 unit SUBCUT Q6H [facility]; Protocol Last Admin: 09/25/24 12:40 Dose: 10 unit Midodrine (Midodrine Hcl 5 Mg Tablet) 5 mg PO TID [facility] Last Admin: 09/25/24 08:21 Dose: Not Given Pantoprazole Sodium (Pantoprazole Sodium 40 Mg/10 Ml Vial) 40 mg IVPUSH BID@0630,1630 [facility] Last Admin: 09/25/24 10:02 Dose: 40 mg Pharmacy Consult (Consult Rx Vancomycin Dosing) 1 each MISCELLANE DAILY PRN PRN Reason: Consult order Pharmacy Consult (Consult Rx Parenteral Nutrition Ordering) 1 each MISCELLANE DAILY PRN PRN Reason: Consult order Sodium Chloride (0.9 % Sodium Chloride Flush 3 Ml Syringe) 3 ml IVFLUSH QSHIFT [facility] Last Admin: 09/25/24 07:44 Dose: 3 ml Home Medications ?Medication ?Instructions ?Recorded ?Confirmed ?Last Taken ?Type aspirin 81 mg tablet,delayed 81 mg PO DAILY 08/31/20 09/15/24 Unknown History release famotidine 20 mg tablet 20 mg PO BEDTIME 08/31/20 09/15/24 Unknown History furosemide 80 mg tablet 80 mg PO DAILY 08/31/20 09/15/24 Unknown History loperamide 2 mg capsule 2 mg PO TID PRN Diarrhea 08/31/20 09/15/24 Unknown History paliperidone 3 mg tablet,extended 3 mg PO DAILY 08/31/20 09/15/24 Unknown History release 24 hr perphenazine 4 mg tablet 4 mg PO BID 08/31/20 09/15/24 Unknown History vitamin B complex and vitamin C 1 cap PO DAILY 08/31/20 09/15/24 Unknown History no.20-folic acid 1 mg capsule ([place] Caps) cholecalciferol (vitamin D3) 125 125 mcg PO DAILY 01/13/21 09/15/24 Unknown History mcg (5,000 unit) tablet nicotine 14 mg/24 hr daily 1 patch transdermal DAILY PRN 01/13/21 09/15/24 Unknown History transdermal patch Nicotine Cravings amlodipine 5 mg tablet 5 mg PO DAILY 07/14/22 09/15/24 Unknown History midodrine 5 mg tablet 5 mg PO MOWEFR@0900,1800 07/14/22 09/15/24 Unknown History multivitamin 1 tab PO DAILY 07/14/22 09/15/24 Unknown History omega-3 fatty acids 1,000 mg 1 cap PO BID 07/14/22 09/15/24 Unknown History capsule metoprolol tartrate 50 mg tablet 25 mg PO BID 09/15/24 09/15/24 Unknown History tiotropium bromide 1.25 2 puff inhalation DAILY 09/15/24 09/15/24 Unknown History mcg/actuation mist for inhalation (Spiriva Respimat) Physical Exam Vital Signs: Vital Signs: Last Vital Signs Temp 95.4 F L 09/25/24 12:00 Pulse 80 09/25/24 12:00 Resp 25 H 09/25/24 12:00 BP 136/59 L 09/25/24 12:00 Pulse Ox 100 09/25/24 12:00 O2 Del Method Mechanical Ventil ation 09/25/24 12:00 O2 Flow Rate 4 09/24/24 08:00 FiO2 50 09/25/24 12:00 BMI result Body Mass Index 25.3 Const: General: no acute distress, ill appearing and other (intubated and sedated) Nutritional Appearance: average body habitus Limitations: other limitations HEENT: Head: Yes normal to inspection Ears: hearing grossly normal bilaterally Eyes: Sclerae: sclerae normal Pupils: Equal, round and reactive pupils present Neck: Neck: Yes normal visual inspection Chest: Chest palpation & inspection: normal inspection of the chest Resp: Effort & Inspection: normal respiratory effort Auscultation: clear to auscultation bilaterally Cardio: Palpation: normal PMI Rate: regular rate Rhythm: regular rhythm Heart sounds: S1 normal heart sound present, S2 normal heart sound present and no murmurs GI: Inspection: Yes distended and No GJ-tube present Palpation (GI): Soft to palpation, nontender and No hepatosplenomegaly present Auscultation: normal bowel sounds Rectal Exam - Male: Yes deferred and Yes other (liquid black stool in rectal tube) Skin: General skin exam: no rashes or lesions noted Neuro: General: other (intubated and sedated) Cranial nerves: Yes Equal, round and reactive pupils present Psych: Appearance: grossly normal Mental Status: mental status grossly normal Results Labs 09/26/24 00:55 09/26/24 00:55 Labs: Short CBC 09/25/24 09/25/24 09/25/24 Range/Units 01:31 06:00 12:10 WBC 55.3 H* 63.5 H* 45.5 H* (4.8-10.8) X10*3/uL Hgb 7.0 L* 5.3 L* D 7.7 L D (14.0-18.0) g/dl Hct 22.6 L 17.8 L* D 24.0 L D (42.0-52.0) % Plt Count 402 H 319 (160-400) X10*3/uL BMP 09/24/24 09/25/24 09/25/24 13:53 00:32 01:31 Sodium 138 137 138 Potassium 2.6 L* D 6.9 H* D 7.6 H* Chloride 97 101 102 Carbon Dioxide 24 15 L 14 L BUN 75 H 105 H 106 H Creatinine 4.06 H* 5.19 H* 5.20 H* Calcium 10.0 D 10.4 H 10.1 09/25/24 09/25/24 06:00 12:10 Sodium 134 L 133 L Potassium 5.6 H D 6.9 H* D Chloride 98 96 Carbon Dioxide 10 L* D 10 L* BUN 105 H 107 H Creatinine 5.76 H* 5.24 H* Calcium 10.2 9.5 D Liver Function 09/25/24 Range/Units 06:00 Total Bilirubin 0.8 (0.0-1.0) mg/dL Direct Bilirubin 0.5 (0.0-0.5) mg/dL AST TNP ALT < 6 (0-40) U/L Alkaline Phosphatase 103 (39-117) U/L Albumin 4.1 (3.5-5.0) g/dL Microbiology Microbiology Results: Microbiology 09/25/24 03:00 Blood - Venous Blood Culture - Preliminary 09/15/24 12:10 Blood - Venous Blood Culture - Final No growth after 5 days. 09/15/24 11:03 Blood - Venous Blood Culture - Final No growth after 5 days. 09/15/24 Unknown Urine Catheterized - [place]as Catheter Urine Culture - Final No growth. Assessment and Plan (1) Anemia, macrocytic: Status: Acute (2) Acute pancreatitis: Status: Acute (3) Acute blood loss anemia: Status: Acute (4) Upper GI bleed: Status: Acute Plan 64 Y M w/ COPD on 2-4L NC, psychiatric comorbidities, and ESRD on hemodialysis reportedly M/W/F, last dialysis session reportedly 09/12, admitted to [facility] [place] on 09/15 w/ obtundation, found to be in acute respiratory failure, intubated; Labs in ED, showed profound acidosis, admitted for emergent dialysis GI consulted due to presence of black stools/melena in the rectal tube associated with hypotension requiring pressors. Pt was transfused 2 U of PRBC with appropriated increase in H&H. UGIB likely from PUD, erosive esophagitis or stress gastritis. RECOMMENDATIONS: 1. Monitor CBC every 8 hrly and transfuse prn 2. IV PPI infusion. 3. Pt is at high risk for anesthesia due to multiple co-morbidities. Procedures Date of Service Date of Service: 09/26/24
[2024-09-25 13:05] LABS: Band Neutrophils Percent 11 % (3-5); Lymphocytes Absolute Manual 1.8 X10*3/uL (1.2-4.9); Lymphocytes Percent Manual 4 % (20-40); Metamyelocytes Absolute 1.4 X10*3/uL; Metamyelocytes Percent 3 %; Myelocytes Absolute 1.4 X10*/uL; Myelocytes Percent 3 %; Neutrophils Percent Manual 79 % (45-73); Nucleated Red Blood Cells 5 /100WBC (0-0)
[2024-09-25 13:08] LABS: Acanthocytes 1+ (0-2) /OIF; RBC Morphology NOTED; Schistocytes 1+ (0-2) /OIF
[2024-09-25 13:09] LABS: Basophilic Stippling 1+ (0-2) /OIF; Burr Cells 3+ (>5) /OIF; Polychromasia 1+ (0-2) /OIF
[2024-09-25 13:22] LABS: Platelet Estimate NORMAL (NORMAL); Platelet Morphology Comment NORMAL
[2024-09-25 13:24] LABS: Mean Platelet Volume 11.7 fL (9.4-12.4); Platelet Count 163 X10*3/uL (160-400)
[2024-09-25 14:13] LABS: INTERNATIONAL NORM RATIO 4.6 (0.9-1.1); Prothrombin Time 54.3 SEC (10.9-12.4)
[2024-09-25 14:19] LABS: Glucose, Whole Blood 357 mg/dL (60-115)
[2024-09-25 14:24] LABS: Partial Thromboplastin Time 69.9 SEC (26.0-36.8)
--- NOTE | 2024-09-25 14:49 | PM.CCPN ---
Subjective Subjective Date of Service: 09/25/24 Interval History: 64-year-old gentleman with underlying COPD on 2-4 L of supplemental oxygen, paranoid schizophrenia, end-stage renal disease on hemodialysis admitted on 09/15/2024 with alteration of mental status, hypoxia requiring intubation, and profound metabolic acidosis requiring urgent dialysis. Patient uneventfully extubated on 09/16/2024, however he continued with episodes of hypercapnia requiring on/off BiPAP support. Overnight patient with development of profound shock and metabolic acidosis requiring emergent intubation and ventilatory support. Hemoglobin down to 5.5, likely secondary to acute GI bleed, as patient also has developed melena. Transfuse 2 units of packed red blood cells, empiric antibiotics started. CT abdomen pelvis with pancreatic necrosis and urinary bladder hemorrhage. Critical Care Time (minutes): 90 Physical Exam Vital Signs: Vital Signs: Last Vital Signs Temp 95.4 F L 09/25/24 12:00 Pulse 84 09/25/24 14:32 Resp 25 H 09/25/24 14:00 BP 130/59 L 09/25/24 14:32 Pulse Ox 95 09/25/24 14:00 O2 Del Method Mechanical Ventil ation 09/25/24 14:00 O2 Flow Rate 4 09/24/24 08:00 FiO2 50 09/25/24 14:00 BMI result Body Mass Index 25.3 Const: General: no acute distress and other (Sedated on the ventilatory support) Eyes: Sclerae: sclerae normal EOM: EOMs intact bilaterally Neck: Neck: Yes no lymphadenopathy, Yes trachea midline and Yes supple Resp: Auscultation: clear to auscultation bilaterally and crackles (Bilateral) Cardio: Rate: regular rate Rhythm: regular rhythm Heart sounds: no gallops, no murmurs and no rubs GI: Inspection: Yes distended Palpation (GI): Soft to palpation and Other GI palpation findings present ( Nontender) Auscultation: normal bowel sounds Extrem: General: No clubbing, No cyanosis and Yes edema (1+ bilateral) Objective Data Labs 09/25/24 12:10 09/25/24 12:10 Labs: Laboratory Results - last 24 hr 09/24/24 09/24/24 09/25/24 17:39 17:56 00:32 WBC RBC Hgb Hct MCV MCH MCHC RDW Plt Count MPV Immature Gran % (Auto) Neut % (Auto) Lymph % (Auto) [place] % (Auto) Eos % (Auto) Baso % (Auto) Lymph # (Auto) [place] # (Auto) Eos # (Auto) Baso # (Auto) Abs Immat Gran (auto) Absolute Neuts (auto) Absolute Nucleated RBC Nucleated RBC % (auto) Neutrophils % (Manual) Band Neutrophils % Lymphocytes % (Manual) Monocytes % (Manual) Metamyelocytes % Myelocytes % Promyelocytes % Abs Neuts (Manual) Lymphocytes # (Manual) Monocytes # (Manual) Metamyelocytes # Myelocytes # Promyelocytes # Nucleated RBCs Platelet Estimate Plt Morphology Comment RBC Morphology Polychromasia Hypochromasia Basophilic Stippling Macrocytosis Tear Drop Cells Eric Cells Acanthocytes (Spur) Schistocytes Smear Path Review PT INR APTT VBG pH VBG pCO2 VBG pO2 VBG HCO3 VBG O2 Saturation VBG Base Excess Sodium 137 Potassium 6.9 H* D Chloride 101 Carbon Dioxide 15 L Anion Gap 28 H BUN 105 H Creatinine 5.19 H* Estim Creat Clear Calc 15.1 Estimated GFR 11 POC Glucose 314 H Random Glucose 205 H Lactic Acid Lactic Acid F/U @ 2Hr Lactic Acid F/U @ 4Hr Calcium 10.4 H Phosphorus Magnesium Total Bilirubin Direct Bilirubin AST ALT Alkaline Phosphatase Troponin I High Sens Total Protein Albumin Lipase Stool Occult Blood Random Vancomycin 11.1 L Blood Type Antibody Screen Crossmatch 09/25/24 09/25/24 09/25/24 00:35 01:31 02:30 WBC 55.3 H* RBC 2.07 L Hgb 7.0 L* Hct 22.6 L MCV 109.2 H D MCH 33.8 H MCHC 31.0 RDW 18.1 H Plt Count 402 H MPV 11.2 Immature Gran % (Auto) Neut % (Auto) Lymph % (Auto) [place] % (Auto) Eos % (Auto) Baso % (Auto) Lymph # (Auto) [place] # (Auto) Eos # (Auto) Baso # (Auto) Abs Immat Gran (auto) Absolute Neuts (auto) Absolute Nucleated RBC 6.070 H Nucleated RBC % (auto) 11.0 H Neutrophils % (Manual) Band Neutrophils % Lymphocytes % (Manual) Monocytes % (Manual) Metamyelocytes % Myelocytes % Promyelocytes % Abs Neuts (Manual) Lymphocytes # (Manual) Monocytes # (Manual) Metamyelocytes # Myelocytes # Promyelocytes # Nucleated RBCs Platelet Estimate Plt Morphology Comment RBC Morphology Polychromasia Hypochromasia Basophilic Stippling Macrocytosis Tear Drop Cells [place] Cells Acanthocytes (Spur) Schistocytes Smear Path Review SEE NOTE PT INR APTT VBG pH 7.16 L* VBG pCO2 50 VBG pO2 32 VBG HCO3 18 L VBG O2 Saturation 30.0 VBG Base Excess -9.5 Sodium 138 Potassium 7.6 H* Chloride 102 Carbon Dioxide 14 L Anion Gap 30 H BUN 106 H Creatinine 5.20 H* Estim Creat Clear Calc 15.0 Estimated GFR 11 POC Glucose Random Glucose 161 H Lactic Acid 10.5 H* Lactic Acid F/U @ 2Hr Lactic Acid F/U @ 4Hr Calcium 10.1 Phosphorus Magnesium Total Bilirubin Direct Bilirubin AST ALT Alkaline Phosphatase Troponin I High Sens 110.7 H* D Total Protein Albumin Lipase Stool Occult Blood Random Vancomycin Blood Type Antibody Screen Crossmatch 09/25/24 09/25/24 09/25/24 02:55 05:44 06:00 WBC 63.5 H* RBC 1.55 L D Hgb 5.3 L* D Hct 17.8 L* D MCV 114.8 H D MCH 34.2 H MCHC 29.8 L RDW 18.1 H Plt Count 319 MPV 11.1 Immature Gran % (Auto) Cancelled Neut % (Auto) Cancelled Lymph % (Auto) Cancelled [place] % (Auto) Cancelled Eos % (Auto) Cancelled Baso % (Auto) Cancelled Lymph # (Auto) Cancelled [place] # (Auto) Cancelled Eos # (Auto) Cancelled Baso # (Auto) Cancelled Abs Immat Gran (auto) Cancelled Absolute Neuts (auto) Cancelled Absolute Nucleated RBC 7.730 H Nucleated RBC % (auto) 12.2 H Neutrophils % (Manual) 76 H Band Neutrophils % 10 H Lymphocytes % (Manual) 3 L Monocytes % (Manual) 4 Metamyelocytes % 4 Myelocytes % 2 Promyelocytes % 1 Abs Neuts (Manual) 54.6 H Lymphocytes # (Manual) 1.9 Monocytes # (Manual) 2.5 H Metamyelocytes # 2.5 Myelocytes # 1.3 Promyelocytes # 0.6 Nucleated RBCs 10 H Platelet Estimate NORMAL Plt Morphology Comment NORMAL RBC Morphology NOTED Polychromasia 2+ (3-5) Hypochromasia 1+ (5-14) Basophilic Stippling Macrocytosis 2+ (15-30) Tear Drop Cells 1+ (0-2) Eric Cells Acanthocytes (Spur) Schistocytes 1+ (0-2) Smear Path Review PT INR APTT VBG pH VBG pCO2 VBG pO2 VBG HCO3 VBG O2 Saturation VBG Base Excess Sodium 134 L Potassium 5.6 H D Chloride 98 Carbon Dioxide 10 L* D Anion Gap 32 H BUN 105 H Creatinine 5.76 H* Estim Creat Clear Calc 13.6 Estimated GFR 10 POC Glucose Random Glucose 335 H Lactic Acid Lactic Acid F/U @ 2Hr 10.0 H* Lactic Acid F/U @ 4Hr Calcium 10.2 Phosphorus 7.1 H Magnesium 2.7 H Total Bilirubin 0.8 Direct Bilirubin 0.5 AST TNP ALT < 6 Alkaline Phosphatase 103 Troponin I High Sens 170.7 H* D Total Protein 6.9 Albumin 4.1 Lipase Stool Occult Blood Random Vancomycin Blood Type O Positive Antibody Screen NEGATIVE Crossmatch See Detail 09/25/24 09/25/24 09/25/24 06:01 06:20 08:58 WBC RBC Hgb Hct MCV MCH MCHC RDW Plt Count MPV Immature Gran % (Auto) Neut % (Auto) Lymph % (Auto) [place] % (Auto) Eos % (Auto) Baso % (Auto) Lymph # (Auto) [place] # (Auto) Eos # (Auto) Baso # (Auto) Abs Immat Gran (auto) Absolute Neuts (auto) Absolute Nucleated RBC Nucleated RBC % (auto) Neutrophils % (Manual) Band Neutrophils % Lymphocytes % (Manual) Monocytes % (Manual) Metamyelocytes % Myelocytes % Promyelocytes % Abs Neuts (Manual) Lymphocytes # (Manual) Monocytes # (Manual) Metamyelocytes # Myelocytes # Promyelocytes # Nucleated RBCs Platelet Estimate Plt Morphology Comment RBC Morphology Polychromasia Hypochromasia Basophilic Stippling Macrocytosis Tear Drop Cells Eric Cells Acanthocytes (Spur) Schistocytes Smear Path Review PT INR APTT VBG pH 7.05 L* VBG pCO2 40 VBG pO2 63 VBG HCO3 11 L VBG O2 Saturation TNP VBG Base Excess -17.4 Sodium Potassium Chloride Carbon Dioxide Anion Gap BUN Creatinine Estim Creat Clear Calc Estimated GFR POC Glucose 298 H Random Glucose Lactic Acid Lactic Acid F/U @ 2Hr Lactic Acid F/U @ 4Hr 10.5 H* Calcium Phosphorus Magnesium Total Bilirubin Direct Bilirubin AST ALT Alkaline Phosphatase Troponin I High Sens Total Protein Albumin Lipase Stool Occult Blood Random Vancomycin Blood Type Antibody Screen Crossmatch 09/25/24 09/25/24 09/25/24 11:27 11:56 12:10 WBC 45.5 H* RBC 2.42 L D Hgb 7.7 L D Hct 24.0 L D MCV 99.2 H D MCH 31.8 MCHC 32.1 RDW 20.4 H Plt Count 163 D MPV 11.7 Immature Gran % (Auto) Cancelled Neut % (Auto) Cancelled Lymph % (Auto) Cancelled [place] % (Auto) Cancelled Eos % (Auto) Cancelled Baso % (Auto) Cancelled Lymph # (Auto) Cancelled [place] # (Auto) Cancelled Eos # (Auto) Cancelled Baso # (Auto) Cancelled Abs Immat Gran (auto) Cancelled Absolute Neuts (auto) Cancelled Absolute Nucleated RBC 2.150 H Nucleated RBC % (auto) 4.7 H Neutrophils % (Manual) 79 H Band Neutrophils % 11 H Lymphocytes % (Manual) 4 L Monocytes % (Manual) Metamyelocytes % 3 Myelocytes % 3 Promyelocytes % Abs Neuts (Manual) 41.0 H Lymphocytes # (Manual) 1.8 Monocytes # (Manual) Metamyelocytes # 1.4 Myelocytes # 1.4 Promyelocytes # Nucleated RBCs 5 H Platelet Estimate NORMAL Plt Morphology Comment NORMAL RBC Morphology NOTED Polychromasia 1+ (0-2) Hypochromasia Basophilic Stippling 1+ (0-2) Macrocytosis Tear Drop Cells [place] Cells 3+ (>5) Acanthocytes (Spur) 1+ (0-2) Schistocytes 1+ (0-2) Smear Path Review PT INR APTT VBG pH VBG pCO2 VBG pO2 VBG HCO3 VBG O2 Saturation VBG Base Excess Sodium 133 L Potassium 6.9 H* D Chloride 96 Carbon Dioxide 10 L* Anion Gap 34 H BUN 107 H Creatinine 5.24 H* Estim Creat Clear Calc 14.9 Estimated GFR 11 POC Glucose 361 H* Random Glucose 384 H* Lactic Acid Lactic Acid F/U @ 2Hr Lactic Acid F/U @ 4Hr Calcium 9.5 D Phosphorus Magnesium Total Bilirubin Direct Bilirubin AST ALT Alkaline Phosphatase Troponin I High Sens Total Protein Albumin Lipase 2855 H Stool Occult Blood POSITIVE Random Vancomycin Blood Type Antibody Screen Crossmatch 09/25/24 09/25/24 09/25/24 12:14 13:56 14:16 WBC RBC Hgb Hct MCV MCH MCHC RDW Plt Count MPV Immature Gran % (Auto) Neut % (Auto) Lymph % (Auto) [place] % (Auto) Eos % (Auto) Baso % (Auto) Lymph # (Auto) [place] # (Auto) Eos # (Auto) Baso # (Auto) Abs Immat Gran (auto) Absolute Neuts (auto) Absolute Nucleated RBC Nucleated RBC % (auto) Neutrophils % (Manual) Band Neutrophils % Lymphocytes % (Manual) Monocytes % (Manual) Metamyelocytes % Myelocytes % Promyelocytes % Abs Neuts (Manual) Lymphocytes # (Manual) Monocytes # (Manual) Metamyelocytes # Myelocytes # Promyelocytes # Nucleated RBCs Platelet Estimate Plt Morphology Comment RBC Morphology Polychromasia Hypochromasia Basophilic Stippling Macrocytosis Tear Drop Cells Eric Cells Acanthocytes (Spur) Schistocytes Smear Path Review PT 54.3 H D INR 4.6 H D APTT 69.9 H* VBG pH 7.07 L* VBG pCO2 42 VBG pO2 62 VBG HCO3 12 L VBG O2 Saturation 84.0 VBG Base Excess -16.2 Sodium Potassium Chloride Carbon Dioxide Anion Gap BUN Creatinine Estim Creat Clear Calc Estimated GFR POC Glucose 357 H* Random Glucose Lactic Acid Lactic Acid F/U @ 2Hr Lactic Acid F/U @ 4Hr Calcium Phosphorus Magnesium Total Bilirubin Direct Bilirubin AST ALT Alkaline Phosphatase Troponin I High Sens Total Protein Albumin Lipase Stool Occult Blood Random Vancomycin Blood Type Antibody Screen Crossmatch Microbiology Microbiology Results: Microbiology 09/25/24 03:00 Blood - Venous Blood Culture - Preliminary 09/15/24 12:10 Blood - Venous Blood Culture - Final No growth after 5 days. 09/15/24 11:03 Blood - Venous Blood Culture - Final No growth after 5 days. 09/15/24 Unknown Urine Catheterized - [place] Catheter Urine Culture - Final No growth. Progress Note: A&P Assessment and plan (1) Chronic paranoid schizophrenia: Status: Acute (2) Upper GI bleed: Status: Acute (3) Acute pancreatitis: Status: Acute (4) Atrial fibrillation with rapid ventricular response: Status: Acute (5) End stage renal disease: Status: Acute (6) Shock: Status: Acute (7) Acute blood loss anemia: Status: Acute (8) Metabolic acidosis: Status: Acute (9) Coagulopathy: Status: Acute (10) COPD (chronic obstructive pulmonary disease): Status: Acute (11) Respiratory failure with hypoxia: Status: Acute Plan Assessment: 64-year-old gentleman with underlying COPD on supplemental oxygen burning schizophrenia and ESRD on hemodialysis admitted with acute respiratory failure initially requiring ventilatory support, now extubated requiring on/off BiPAP support. Plan: Neuro: Encephalopathy resolved. Cardiac: Hemorrhagic shock continue to titrate off pressor support as tolerated. AFib with RVR requiring amiodarone drip. Pulmonary: Acute respiratory failure a background of profound metabolic acidosis requiring ventilatory support, continue to titrate off as tolerated. Renal: ESRD on hemodialysis. Nephrology service care appreciated. Endo: No acute issues. GI: Upper GI bleed, possible secondary to stress gastritis. Change PPI to PPI drip. Gastroenterology service care appreciated. Necrotizing pancreatitis, general surgery evaluation requested. ID: Cultures are pending, continue broad-spectrum antibiotic coverage. Heme/Onc: Acute blood loss anemia secondary to GI bleed and coagulopathy. Continue to monitor his requiring double. Status post 2 units of packed red blood cells. Psych: No acute issues. Underlying paranoid schizophrenia. Miscellaneous: No acute issues. Prophylaxis: Pneumatic compression Diet: TPN Critical care time spent: 90 Quality Stroke Does the patient have a stroke diagnosis?: No VTE Prior VTE?: No VTE Risk Level:: Medical - moderate - high VTE Device Contraindication: N/A - Device Ordered VTE Drug Contraindication: N/A - Med Ordered
[2024-09-25] MEDS: Insulin Regular/NS 100 UNIT/100 ML PLAST..BAG IVCONT (15:01)
[2024-09-25 15:03] LABS: Glucose, Whole Blood 319 mg/dL (60-115)
[2024-09-25] MEDS: Insulin Regular, Human 100 UNIT/ML 10 ML VIAL IVPUSH (15:14)
--- NOTE | 2024-09-25 15:46 | MHC.CM.PN ---
Pt with worseing status overnight: WBC elevated, ? GIB: CT of abd notes necrotic pancreas - reintubated. CM to follow: no clinical updates sent to STR today
[2024-09-25] MEDS: Phytonadione (Vit K1) 10 MG in 0.9 % Sodium Chloride 50 ML 51 MG IV (15:49)
[2024-09-25 16:02] LABS: Glucose, Whole Blood 348 mg/dL (60-115)
[2024-09-25] MEDS: Pantoprazole Sodium 80 MG in 0.9 % Sodium Chloride 80 ML 10 MG IV (16:52)
--- NOTE | 2024-09-25 17:11 | PM.PNNEP ---
Subjective Subjective Date of Service: 09/25/24 Interval history: Seen and examined, events noted Re-intubated last night Req incr pressor and signif drop in Hb Physical Exam Vital Signs: Vital Signs: Last Vital Signs Temp 98.2 F 09/25/24 15:52 Pulse 84 09/25/24 15:52 Resp 24 H 09/25/24 15:52 BP 122/59 L 09/25/24 15:52 Pulse Ox 93 09/25/24 16:00 O2 Del Method Mechanical Ventil ation 09/25/24 15:52 O2 Flow Rate 4 09/24/24 08:00 FiO2 50 09/25/24 16:00 BMI result Body Mass Index 25.3 Const: Other: fatigued, though easily arousable w/ verbal stimulus General: cooperative and well developed Orientation/consciousness: patient oriented x3 HEENT: Head: Yes normal to inspection and Yes atraumatic Eyes: General: appearance normal, both eyes and all related structures Neck: Neck: Yes normal visual inspection, Yes full ROM, Yes no meningeal signs, Yes trachea midline and Yes supple Chest: Chest palpation & inspection: normal inspection of the chest Resp: Other: some appreciable rhonchi; no overt rales, wheezing Effort & Inspection: normal respiratory effort Cardio: Rate: regular rate Rhythm: regular rhythm GI: Inspection: Yes normal to inspection, Yes Abdominal wall edema and Yes distended Skin: General skin exam: no rashes or lesions noted Neuro: General: patient oriented x3, tone normal, moves all extremities, no meningeal signs and no focal motor deficits Extrem: Other: appreciable 2+ pitting edema to bilateral shins General: Yes normal to inspection, Yes full ROM and Yes capillary refill normal Psych: Appearance: grossly normal Objective Data Labs 09/25/24 12:10 09/25/24 12:10 Labs: Laboratory Results - last 24 hr 09/24/24 09/24/24 09/25/24 17:39 17:56 00:32 WBC RBC Hgb Hct MCV MCH MCHC RDW Plt Count MPV Immature Gran % (Auto) Neut % (Auto) Lymph % (Auto) [place] % (Auto) Eos % (Auto) Baso % (Auto) Lymph # (Auto) [place] # (Auto) Eos # (Auto) Baso # (Auto) Abs Immat Gran (auto) Absolute Neuts (auto) Absolute Nucleated RBC Nucleated RBC % (auto) Neutrophils % (Manual) Band Neutrophils % Lymphocytes % (Manual) Monocytes % (Manual) Metamyelocytes % Myelocytes % Promyelocytes % Abs Neuts (Manual) Lymphocytes # (Manual) Monocytes # (Manual) Metamyelocytes # Myelocytes # Promyelocytes # Nucleated RBCs Platelet Estimate Plt Morphology Comment RBC Morphology Polychromasia Hypochromasia Basophilic Stippling Macrocytosis Tear Drop Cells Eric Cells Acanthocytes (Spur) Schistocytes Smear Path Review PT INR APTT VBG pH VBG pCO2 VBG pO2 VBG HCO3 VBG O2 Saturation VBG Base Excess Sodium 137 Potassium 6.9 H* D Chloride 101 Carbon Dioxide 15 L Anion Gap 28 H BUN 105 H Creatinine 5.19 H* Estim Creat Clear Calc 15.1 Estimated GFR 11 POC Glucose 314 H Random Glucose 205 H Lactic Acid Lactic Acid F/U @ 2Hr Lactic Acid F/U @ 4Hr Calcium 10.4 H Phosphorus Magnesium Total Bilirubin Direct Bilirubin AST ALT Alkaline Phosphatase Troponin I High Sens Total Protein Albumin Lipase Stool Occult Blood Random Vancomycin 11.1 L Blood Type Antibody Screen Crossmatch 09/25/24 09/25/24 09/25/24 00:35 01:31 02:30 WBC 55.3 H* RBC 2.07 L Hgb 7.0 L* Hct 22.6 L MCV 109.2 H D MCH 33.8 H MCHC 31.0 RDW 18.1 H Plt Count 402 H MPV 11.2 Immature Gran % (Auto) Neut % (Auto) Lymph % (Auto) [place] % (Auto) Eos % (Auto) Baso % (Auto) Lymph # (Auto) [place] # (Auto) Eos # (Auto) Baso # (Auto) Abs Immat Gran (auto) Absolute Neuts (auto) Absolute Nucleated RBC 6.070 H Nucleated RBC % (auto) 11.0 H Neutrophils % (Manual) Band Neutrophils % Lymphocytes % (Manual) Monocytes % (Manual) Metamyelocytes % Myelocytes % Promyelocytes % Abs Neuts (Manual) Lymphocytes # (Manual) Monocytes # (Manual) Metamyelocytes # Myelocytes # Promyelocytes # Nucleated RBCs Platelet Estimate Plt Morphology Comment RBC Morphology Polychromasia Hypochromasia Basophilic Stippling Macrocytosis Tear Drop Cells Eric Cells Acanthocytes (Spur) Schistocytes Smear Path Review SEE NOTE PT INR APTT VBG pH 7.16 L* VBG pCO2 50 VBG pO2 32 VBG HCO3 18 L VBG O2 Saturation 30.0 VBG Base Excess -9.5 Sodium 138 Potassium 7.6 H* Chloride 102 Carbon Dioxide 14 L Anion Gap 30 H BUN 106 H Creatinine 5.20 H* Estim Creat Clear Calc 15.0 Estimated GFR 11 POC Glucose Random Glucose 161 H Lactic Acid 10.5 H* Lactic Acid F/U @ 2Hr Lactic Acid F/U @ 4Hr Calcium 10.1 Phosphorus Magnesium Total Bilirubin Direct Bilirubin AST ALT Alkaline Phosphatase Troponin I High Sens 110.7 H* D Total Protein Albumin Lipase Stool Occult Blood Random Vancomycin Blood Type Antibody Screen Crossmatch 09/25/24 09/25/24 09/25/24 02:55 05:44 06:00 WBC 63.5 H* RBC 1.55 L D Hgb 5.3 L* D Hct 17.8 L* D MCV 114.8 H D MCH 34.2 H MCHC 29.8 L RDW 18.1 H Plt Count 319 MPV 11.1 Immature Gran % (Auto) Cancelled Neut % (Auto) Cancelled Lymph % (Auto) Cancelled [place] % (Auto) Cancelled Eos % (Auto) Cancelled Baso % (Auto) Cancelled Lymph # (Auto) Cancelled [place] # (Auto) Cancelled Eos # (Auto) Cancelled Baso # (Auto) Cancelled Abs Immat Gran (auto) Cancelled Absolute Neuts (auto) Cancelled Absolute Nucleated RBC 7.730 H Nucleated RBC % (auto) 12.2 H Neutrophils % (Manual) 76 H Band Neutrophils % 10 H Lymphocytes % (Manual) 3 L Monocytes % (Manual) 4 Metamyelocytes % 4 Myelocytes % 2 Promyelocytes % 1 Abs Neuts (Manual) 54.6 H Lymphocytes # (Manual) 1.9 Monocytes # (Manual) 2.5 H Metamyelocytes # 2.5 Myelocytes # 1.3 Promyelocytes # 0.6 Nucleated RBCs 10 H Platelet Estimate NORMAL Plt Morphology Comment NORMAL RBC Morphology NOTED Polychromasia 2+ (3-5) Hypochromasia 1+ (5-14) Basophilic Stippling Macrocytosis 2+ (15-30) Tear Drop Cells 1+ (0-2) [place] Cells Acanthocytes (Spur) Schistocytes 1+ (0-2) Smear Path Review PT INR APTT VBG pH VBG pCO2 VBG pO2 VBG HCO3 VBG O2 Saturation VBG Base Excess Sodium 134 L Potassium 5.6 H D Chloride 98 Carbon Dioxide 10 L* D Anion Gap 32 H BUN 105 H Creatinine 5.76 H* Estim Creat Clear Calc 13.6 Estimated GFR 10 POC Glucose Random Glucose 335 H Lactic Acid Lactic Acid F/U @ 2Hr 10.0 H* Lactic Acid F/U @ 4Hr Calcium 10.2 Phosphorus 7.1 H Magnesium 2.7 H Total Bilirubin 0.8 Direct Bilirubin 0.5 AST TNP ALT < 6 Alkaline Phosphatase 103 Troponin I High Sens 170.7 H* D Total Protein 6.9 Albumin 4.1 Lipase Stool Occult Blood Random Vancomycin Blood Type O Positive Antibody Screen NEGATIVE Crossmatch See Detail 09/25/24 09/25/24 09/25/24 06:01 06:20 08:58 WBC RBC Hgb Hct MCV MCH MCHC RDW Plt Count MPV Immature Gran % (Auto) Neut % (Auto) Lymph % (Auto) [place] % (Auto) Eos % (Auto) Baso % (Auto) Lymph # (Auto) [place] # (Auto) Eos # (Auto) Baso # (Auto) Abs Immat Gran (auto) Absolute Neuts (auto) Absolute Nucleated RBC Nucleated RBC % (auto) Neutrophils % (Manual) Band Neutrophils % Lymphocytes % (Manual) Monocytes % (Manual) Metamyelocytes % Myelocytes % Promyelocytes % Abs Neuts (Manual) Lymphocytes # (Manual) Monocytes # (Manual) Metamyelocytes # Myelocytes # Promyelocytes # Nucleated RBCs Platelet Estimate Plt Morphology Comment RBC Morphology Polychromasia Hypochromasia Basophilic Stippling Macrocytosis Tear Drop Cells Eric Cells Acanthocytes (Spur) Schistocytes Smear Path Review PT INR APTT VBG pH 7.05 L* VBG pCO2 40 VBG pO2 63 VBG HCO3 11 L VBG O2 Saturation TNP VBG Base Excess -17.4 Sodium Potassium Chloride Carbon Dioxide Anion Gap BUN Creatinine Estim Creat Clear Calc Estimated GFR POC Glucose 298 H Random Glucose Lactic Acid Lactic Acid F/U @ 2Hr Lactic Acid F/U @ 4Hr 10.5 H* Calcium Phosphorus Magnesium Total Bilirubin Direct Bilirubin AST ALT Alkaline Phosphatase Troponin I High Sens Total Protein Albumin Lipase Stool Occult Blood Random Vancomycin Blood Type Antibody Screen Crossmatch 09/25/24 09/25/24 09/25/24 11:27 11:56 12:10 WBC 45.5 H* RBC 2.42 L D Hgb 7.7 L D Hct 24.0 L D MCV 99.2 H D MCH 31.8 MCHC 32.1 RDW 20.4 H Plt Count 163 D MPV 11.7 Immature Gran % (Auto) Cancelled Neut % (Auto) Cancelled Lymph % (Auto) Cancelled [place] % (Auto) Cancelled Eos % (Auto) Cancelled Baso % (Auto) Cancelled Lymph # (Auto) Cancelled [place] # (Auto) Cancelled Eos # (Auto) Cancelled Baso # (Auto) Cancelled Abs Immat Gran (auto) Cancelled Absolute Neuts (auto) Cancelled Absolute Nucleated RBC 2.150 H Nucleated RBC % (auto) 4.7 H Neutrophils % (Manual) 79 H Band Neutrophils % 11 H Lymphocytes % (Manual) 4 L Monocytes % (Manual) Metamyelocytes % 3 Myelocytes % 3 Promyelocytes % Abs Neuts (Manual) 41.0 H Lymphocytes # (Manual) 1.8 Monocytes # (Manual) Metamyelocytes # 1.4 Myelocytes # 1.4 Promyelocytes # Nucleated RBCs 5 H Platelet Estimate NORMAL Plt Morphology Comment NORMAL RBC Morphology NOTED Polychromasia 1+ (0-2) Hypochromasia Basophilic Stippling 1+ (0-2) Macrocytosis Tear Drop Cells [place] Cells 3+ (>5) Acanthocytes (Spur) 1+ (0-2) Schistocytes 1+ (0-2) Smear Path Review PT INR APTT VBG pH VBG pCO2 VBG pO2 VBG HCO3 VBG O2 Saturation VBG Base Excess Sodium 133 L Potassium 6.9 H* D Chloride 96 Carbon Dioxide 10 L* Anion Gap 34 H BUN 107 H Creatinine 5.24 H* Estim Creat Clear Calc 14.9 Estimated GFR 11 POC Glucose 361 H* Random Glucose 384 H* Lactic Acid Lactic Acid F/U @ 2Hr Lactic Acid F/U @ 4Hr Calcium 9.5 D Phosphorus Magnesium Total Bilirubin Direct Bilirubin AST ALT Alkaline Phosphatase Troponin I High Sens Total Protein Albumin Lipase 2855 H Stool Occult Blood POSITIVE Random Vancomycin Blood Type Antibody Screen Crossmatch 09/25/24 09/25/24 09/25/24 12:14 13:56 14:16 WBC RBC Hgb Hct MCV MCH MCHC RDW Plt Count MPV Immature Gran % (Auto) Neut % (Auto) Lymph % (Auto) [place] % (Auto) Eos % (Auto) Baso % (Auto) Lymph # (Auto) [place] # (Auto) Eos # (Auto) Baso # (Auto) Abs Immat Gran (auto) Absolute Neuts (auto) Absolute Nucleated RBC Nucleated RBC % (auto) Neutrophils % (Manual) Band Neutrophils % Lymphocytes % (Manual) Monocytes % (Manual) Metamyelocytes % Myelocytes % Promyelocytes % Abs Neuts (Manual) Lymphocytes # (Manual) Monocytes # (Manual) Metamyelocytes # Myelocytes # Promyelocytes # Nucleated RBCs Platelet Estimate Plt Morphology Comment RBC Morphology Polychromasia Hypochromasia Basophilic Stippling Macrocytosis Tear Drop Cells Eric Cells Acanthocytes (Spur) Schistocytes Smear Path Review PT 54.3 H D INR 4.6 H D APTT 69.9 H* VBG pH 7.07 L* VBG pCO2 42 VBG pO2 62 VBG HCO3 12 L VBG O2 Saturation 84.0 VBG Base Excess -16.2 Sodium Potassium Chloride Carbon Dioxide Anion Gap BUN Creatinine Estim Creat Clear Calc Estimated GFR POC Glucose 357 H* Random Glucose Lactic Acid Lactic Acid F/U @ 2Hr Lactic Acid F/U @ 4Hr Calcium Phosphorus Magnesium Total Bilirubin Direct Bilirubin AST ALT Alkaline Phosphatase Troponin I High Sens Total Protein Albumin Lipase Stool Occult Blood Random Vancomycin Blood Type Antibody Screen Crossmatch 09/25/24 09/25/24 14:59 15:59 WBC RBC Hgb Hct MCV MCH MCHC RDW Plt Count MPV Immature Gran % (Auto) Neut % (Auto) Lymph % (Auto) [place] % (Auto) Eos % (Auto) Baso % (Auto) Lymph # (Auto) [place] # (Auto) Eos # (Auto) Baso # (Auto) Abs Immat Gran (auto) Absolute Neuts (auto) Absolute Nucleated RBC Nucleated RBC % (auto) Neutrophils % (Manual) Band Neutrophils % Lymphocytes % (Manual) Monocytes % (Manual) Metamyelocytes % Myelocytes % Promyelocytes % Abs Neuts (Manual) Lymphocytes # (Manual) Monocytes # (Manual) Metamyelocytes # Myelocytes # Promyelocytes # Nucleated RBCs Platelet Estimate Plt Morphology Comment RBC Morphology Polychromasia Hypochromasia Basophilic Stippling Macrocytosis Tear Drop Cells [place] Cells Acanthocytes (Spur) Schistocytes Smear Path Review PT INR APTT VBG pH VBG pCO2 VBG pO2 VBG HCO3 VBG O2 Saturation VBG Base Excess Sodium Potassium Chloride Carbon Dioxide Anion Gap BUN Creatinine Estim Creat Clear Calc Estimated GFR POC Glucose 319 H 348 H Random Glucose Lactic Acid Lactic Acid F/U @ 2Hr Lactic Acid F/U @ 4Hr Calcium Phosphorus Magnesium Total Bilirubin Direct Bilirubin AST ALT Alkaline Phosphatase Troponin I High Sens Total Protein Albumin Lipase Stool Occult Blood Random Vancomycin Blood Type Antibody Screen Crossmatch Microbiology Microbiology Results: Microbiology 09/25/24 03:00 Blood - Venous Blood Culture - Preliminary 09/15/24 12:10 Blood - Venous Blood Culture - Final No growth after 5 days. 09/15/24 11:03 Blood - Venous Blood Culture - Final No growth after 5 days. 09/15/24 Unknown Urine Catheterized - Canas Catheter Urine Culture - Final No growth. Procedures Date of Service Date of Service: 09/25/24 Assessment & Plan Assessment and plan (1) Pneumonia: Status: Acute (2) End stage renal disease: Status: Acute Plan ESRD PT critically ill with SHOCK from acute blood loss [id number] pancreatitis and SEPSIS now w high Pressor requiriement Lactc acidosis and HyperK PT seen sev times during day and dw ICU team several times re: options including consideration to [place] hosp where [place] [facility] [place] [facility] but feeling is that he would not toelrate the xfer Getting med Tx for hyperK and holding on HD as feeling by ICU he would not toelrate it hemodynamically and better off trying to Tx medically which he is getting now. 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 Progress Note: Quality Stroke Does the patient have a stroke diagnosis?: No
[2024-09-25 17:12] LABS: Glucose, Whole Blood 335 mg/dL (60-115)
[2024-09-25] MEDS: Norepinephrine Bitartrate/NS 32 MG/250 ML PLAST..BAG 25.26 MG IVCONT (17:48)
--- NOTE | 2024-09-25 18:13 | PC.NURSE ---
Assumed care at 0700 - patient remains intubated and sedated with propofol (see MAR). Acutely ill - 1:1 nursing assignment. SR, HR maintaining 70-80's, peaked T wave - provider aware. MAP maintaining >65 w/ BP cuff - Epi gtt titrated off, continued on vaso gtt and levo gtt titrating down per EMAR. A-line to right radial placed by MD - poor waveform - Continue BP monitoring w/ BP cuff per MD. Elevated Trop - MD aware. 1200 VBG drawn - MD aware, 1200 serun bicarb critically low - MD aware - bicarb gtt continued per MAR.? Abdomen semi firm, distended, absent bowl sounds. Multiple liquid dark brown/black bowel movements - OBS positive. Rectal tube placed and patent. low H&H, provider made aware of labs - Dr Holloway ordered emergent 2uPRB administered via pressure bag per TAR. Repeat H&H improved, INR & PTT elevated - MD aware - Vit K 10mg ordered and administered per OCT.? Elevated Lipase. WBC titrating down, but still crit high - 45.5, Lactic critical high- MD aware of labs.? POC >300 - Insulin gtt ordered and titrated per OCT. ABD CT obtained - see report. NPO - plan to restart TPN for 2100 per OCT. GI consulted and at bedside. Gen surg consult pending. AM PPI administered per OCT - Protonix gtt ordered and administering per OCT. Pt anuric. Dialysis on hold at this time - critical BUN, creat, high potassium - [employer] and Nephro aware.? Bed bath completed, barrier cream applied to bilateral buttocks MASD. Stage II bridge of nose scabbed, open to air. Patient repositioned q2hr, air loss pump and hover mat in place. Care ongoing Neuro exam had changes; RASS goal not met. Propofol titrated to meet RASS goal
[2024-09-25 18:45] LABS: Hematocrit 22.4 % (42.0-52.0); Hemoglobin 7.2 g/dl (14.0-18.0); Mean Corpuscular HGB Conc 32.1 g/dl (31.0-36.0); Mean Corpuscular Hemoglobin 32.6 pg (27.0-33.0); Mean Corpuscular Volume 101.4 fL (80.0-98.0); Mean Platelet Volume 12.1 fL (9.4-12.4); Platelet Count 147 X10*3/uL (160-400); Red Blood Count 2.21 X10*6/uL (4.60-5.80); Red Cell Distribution Width 22.1 % (11.0-16.0)
[2024-09-25 19:18] LABS: Sodium 135 mmol/L (135-145); Venous Blood Gas Refer to POC result
[2024-09-25 19:19] LABS: Anion Gap 38 (12-20); Blood Urea Nitrogen 105 mg/dL (9-16); Chloride 96 mmol/L (96-108); Creatinine Clr Calc Pharmacy 13.8
[2024-09-25 19:24] LABS: Glucose Random 341 mg/dL (60-115)
--- NOTE | 2024-09-25 20:12 | W.MHC.ACPN ---
Advanced Care Planning Note Advanced Care Planning Note Discussed with: surrogate (HCP: Tyson Nunez) Time spent (in minutes): 30 Narrative: I spoke with Narinder Lara?s Healthcare proxy, Tyson Nunez to provide a clinical update. Events of the previous night and results of the CT scan performed today were discussed. All questions and concerns addressed. He expressed understanding of the gravity of Narinder?s illness and the likelihood of an impending arrest. Code status was discussed. Tyson declined to change code status stating that he ?would like to have CPR done, but not much else.?? Problems Discussed (1) Acute on chronic respiratory failure with hypoxia and hypercapnia: (2) Shock: (3) Metabolic acidosis: (4) Upper GI bleed: (5) Acute pancreatitis: (6) Acute blood loss anemia: (7) Coagulopathy: (8) Pneumonia: (9) End stage renal disease:
[2024-09-25 20:25] LABS: NRBC Pct Auto 3.9 /100WBC (0.0-0.2)
[2024-09-25 20:52] LABS: White Blood Count 36.7 X10*3/uL (4.8-10.8)
[2024-09-25 20:59] LABS: Alanine Aminotransferase < 6 U/L (0-40); Alkaline Phosphatase 181 U/L (39-117); Bilirubin Total 1.3 mg/dL (0.0-1.0); Calcium 8.8 mg/dL (8.4-10.2); Estimated Glomerular Filt Rate 10; Total Protein 5.3 g/dL (6.5-8.0)
[2024-09-25 21:04] LABS: VBG Base Excess -20.5 mmol/L; VBG HCO3 8 mmol/L (22-26); VBG pCO2 33 mmHg; VBG pO2 90 mmHg
[2024-09-25 21:08] LABS: Glucose, Whole Blood 313 mg/dL (60-115)
[2024-09-25 21:58] LABS: Glucose, Whole Blood 246 mg/dL (60-115)
[2024-09-25 23:01] LABS: Glucose, Whole Blood 250 mg/dL (60-115)
[2024-09-25 23:06] LABS: Band Neutrophils Percent 4 % (3-5); Lymphocytes Absolute Manual 1.8 X10*3/uL (1.2-4.9); Lymphocytes Percent Manual 5 % (20-40); Metamyelocytes Absolute 1.1 X10*3/uL; Metamyelocytes Percent 3 %; Monocytes Absolute Manual 0.7 X10*3/uL (0.1-1.2); Monocytes Percent Manual 2 % (2-11); Myelocytes Absolute 1.1 X10*/uL; Myelocytes Percent 3 %; Neutrophils Absolute Manual 31.6 X10*3/uL (2.0-8.3); Neutrophils Percent Manual 82 % (45-73); Nucleated Red Blood Cells 4 /100WBC (0-0); Platelet Estimate NORMAL (NORMAL); Platelet Morphology Comment NORMAL; Promyelocytes Absolute 0.4 X10*3/uL; Promyelocytes Percent 1 %; RBC Morphology NORMAL
[2024-09-26] VITALS: BP 103/50; PULSE 77; RESP 24; TEMP 35.8; O2SAT 89
[2024-09-26 00:08] VITALS: BP 107/48; PULSE 77; TEMP 34.9
[2024-09-26 00:10] LABS: Glucose, Whole Blood 229 mg/dL (60-115)
[2024-09-26 01:01] LABS: Mean Corpuscular Hemoglobin 32.5 pg (27.0-33.0); Mean Corpuscular Volume 101.5 fL (80.0-98.0); Mean Platelet Volume 11.3 fL (9.4-12.4); Platelet Count 116 X10*3/uL (160-400); Red Blood Count 1.97 X10*6/uL (4.60-5.80); Red Cell Distribution Width 22.6 % (11.0-16.0)
[2024-09-26 01:03] LABS: NRBC Pct Auto 6.3 /100WBC (0.0-0.2); White Blood Count 39.2 X10*3/uL (4.8-10.8)
[2024-09-26 01:04] LABS: Hemoglobin 6.4 g/dl (14.0-18.0)
[2024-09-26 01:10] LABS: VBG Base Excess -15.2 mmol/L; VBG HCO3 14 mmol/L (22-26); VBG pCO2 49 mmHg; VBG pH 7.05 (7.32-7.43); VBG pO2 61 mmHg
[2024-09-26 01:12] LABS: Venous Blood Gas Refer to POC result
[2024-09-26 01:21] LABS: Anion Gap 47 (12-20); Blood Urea Nitrogen 110 mg/dL (9-16); Calcium 9.8 mg/dL (8.4-10.2); Carbon Dioxide 13 mmol/L (22-29); Chloride 92 mmol/L (96-108); Creatinine Clr Calc Pharmacy 12.9; Estimated Glomerular Filt Rate 9; Glucose Random 223 mg/dL (60-115); Magnesium 2.6 mg/dL (1.6-2.6); Phosphorus 16.1 mg/dL (2.7-4.5); Sodium 144 mmol/L (135-145)
[2024-09-26] MEDS: Albuterol Sulfate 7.5 MG, Albuterol Sulfate (0.083%) 2.5 MG 10 MG INHALE (01:35)
[2024-09-26 01:37] VITALS: PULSE 94; RESP 24
[2024-09-26 01:44] VITALS: BP 84/42; PULSE 91
[2024-09-26 01:55] VITALS: BP 76/37; PULSE 97
--- NOTE | 2024-09-26 04:33 | PM.CCN ---
Critical Care Event Note Summary Date of Service: 09/26/24 Code activated: Yes Narrative: This case had a high probability of a clinically significant, sudden, or life threatening deterioration of this patient's condition which required my full and direct attention, intervention and personal management. Critical Care Time (minutes): 180 Comment: Deterioration of the pt?s clinical status began in the transportation job titles hours on 09/25/2024 with development of profound shock and metabolic acidosis likely due to acute GI bleed, pancreatic necrosis, and urinary bladder hemorrhage requiring emergent intubation and ventilatory support. His clinical status continued to decline despite multiple pressors, anti-arrhythmic, sodium bicarbonate, insulin, antibiotics and other medications he was receiving. At about 1230 this morning, the patient became asystolic. CPR and ALS protocol were immediately initiated. ROSC was obtained after 2 rounds of ALS. Unfortunately, the pt arrested several more times with ROSC obtained after 2-3 rounds of ALS each time. After 5-6 consecutive arrests, attempts at resuscitation were futile and the pt . He was pulseless showing asystole on the monitor. Absent peripheral pulses.? Pupils fixed and dilated. Absent heart sounds and no spontaneous breathing. He was pronounced at 0308. The pt?s HCP was not available by phone for notification and had no voicemail option to request a call back. Dr. Holloway notified. The patient is not a medical exam candidate. Organ donation was notified by nursing.
--- NOTE | 2024-09-26 06:13 | PC.NURSE ---
2000: Upon initial assessment, patient intubated and sedated, propofol gtt infusing at 20mcg/kg/min,? RASS -4 (See MAR). See shift assessment for full neuro. SR on tele, peaked T waves and notable first degree block and widened QRS complex. [id number]. A-line to the right radial, not reading appropriately. A-line removed per MD Holloway. SBP low 100s-130s, 4x concentrated levophed and vasopressin infusing per MAR. Pedal pulses absent, posterior tibial pulses located via doppler and marked. ETT #7.5, 27cm?@ lip, ACVC 24/500/5.0/50%, synchronous with the vent. Lung sounds clear, no secretions in-line or orally. Abdomen large round and distended but soft, absent bowel sounds x3 quadrants. FMS in place draining liquid meconium stools. New order for TPN to begin at 2100, held per SHERON Addison. Insulin gtt infusing per non-DKA protocol, see MAR for titrations. Patient anuric. Skin pale and dusky in extremities, cool to touch.? 2100: SHERON Addison contacted patient's HCP to discuss code status. See advance care planning report. 2200: Propofol gtt weaned off (see MAR) and patient remains unresponsive, RASS -5 and GCS 3. SHERON Addison notified. 0025: Patient having multiple pauses on tele before going asystole, no pulse. Code initiated, see code sheet for interventions, ROSC achieved at 0030. SHERON Addison notified of all critical lab values. 0100: Patient asystole on monitor,?no pulse. Code initiated, see code sheet. ROSC achieved 0104. 0105: Patient asystole on monitor,?no pulse. Code initiated, see code sheet. ROSC achieved 0110.? 0157:? Patient asystole on monitor,?no pulse. Code initiated, see code sheet. ROSC achieved 0200. 0257: Patient asystole on monitor,?no pulse. Code initiated, see code sheet. Time of 0308, pronounced by SHERON Addison. 0334: N[facility]S contacted by this RN. [facility]S declined, case #[id number]. 0400: Post mortem care provided. 0612: Patient and belongings [place] [facility] [place] [facility] [employer].
[2024-09-26 08:36] LABS: Carbon Dioxide 9 mmol/L (22-29)
[2024-09-26 08:37] LABS: Troponin-I High Sensitivity 110.7 ng/L (<3.5-35.0)
--- NOTE | 2024-09-26 10:02 | P.DN_ITS ---
Discharge Sum: Prov Provider Primary care physician: Unknown Physician Consults: 09/15/24 11:48 Consult to Nephrology Stat Consulting Provider: John Leger Reason for consultation: on dyalis missed dyalisis Today itubated 09/15/24 15:07 Consult to Urology Routine Consulting Provider: [facility] U[facility] Services Reason for consultation: R Amelia/Hemonephrosis Has provider been notified: Yes 09/20/24 18:54 Consult to Wound Care Routine Reason for consultation: right buttock discoloration / pigmentation 09/25/24 12:08 Consult to Gastroenterology Routine Consulting Provider: [facility] [place] Gastroenterology Services Reason for consultation: GI bleed, pancreatitis with necrosis Has provider been notified: No 09/25/24 12:09 Consult to General Surgery Routine Consulting Provider: [facility] General Surgeons Reason for consultation: Pancreatitis with necrosis Has provider been notified: No Discharge Sum: Diag Contributing Factors (1) Acute on chronic respiratory failure with hypoxia and hypercapnia: (2) Shock: (3) Metabolic acidosis: (4) Upper GI bleed: (5) Acute pancreatitis: (6) Acute blood loss anemia: (7) Coagulopathy: (8) Pneumonia: (9) End stage renal disease: Discharge Sum: Summary Date and Time Date of admission: 09/15/24 12:13 Date of : 09/26/24 Time of : 03:08 Summary Details: 64-year-old gentleman with underlying COPD on 2-4 L of supplemental oxygen, paranoid schizophrenia, end-stage renal disease on hemodialysis admitted on 09/15/2024 with alteration of mental status, hypoxia requiring intubation, and profound metabolic acidosis requiring urgent dialysis. Patient uneventfully extubated on 09/16/2024, however he continued with episodes of hypercapnia requiring on/off BiPAP support. On 09/25/2024 patient with development of profound shock and metabolic acidosis requiring emergent intubation and ventilatory support. Hemoglobin down to 5.5, likely secondary to acute GI bleed, as patient also has developed melena. Transfused 2 units of packed red blood cells, empiric antibiotics started. By gastroenterology service. CT abdomen pelvis with pancreatic necrosis and urinary bladder hemorrhage. Over the course of the day patient with progressive acidosis refractory to therapies, unable to dialyze secondary to profound shock patient with progressive deterioration resulting in sequential cardiac arrests with futile resuscitative efforts, pronounced 09/26/2024 at 03:08 a.m. Additional Data Attending physician: Juan Manuel Holloway MD
[2024-09-26 13:50] LABS: Glucose, Whole Blood 328 mg/dL (60-115)
[2024-09-26 14:37] LABS: Glucose, Whole Blood 348 mg/dL (60-115)
[2024-09-26 14:41] LABS: VBG Base Excess -20.5 mmol/L; VBG HCO3 8 mmol/L (22-26); VBG pCO2 33 mmHg; VBG pH 7.01 (7.32-7.43); VBG pO2 90 mmHg
[2024-09-26 14:44] LABS: Glucose, Whole Blood 364 mg/dL (60-115)
[2024-09-26 16:37] LABS: Glucose, Whole Blood 364 mg/dL (60-115)
== END 2024-09-26 03:08 | disposition expired | DRG 640 ==
LOC: HO.ED 12:16 → HO.EDOVER 12:20 → HO.ICU 12:31
PROVIDERS: Nurse Practitioner Family; Registered Nurse Community Health; Admitting Provider Internal Medicine Critical Care Medicine; Emergency Provider Emergency Medicine; Visit Provider Internal Medicine Pulmonary Disease
DX: E87.70 Fluid overload, unspecified (principal); A41.9 Sepsis, unspecified organism; N18.6 End stage renal disease; J18.9 Pneumonia, unspecified organism; K29.71 Gastritis, unspecified, with bleeding; K22.11 Ulcer of esophagus with bleeding; J96.21 Acute and chronic respiratory failure with hypoxia; J96.22 Acute and chronic respiratory failure with hypercapnia; K85.91 Acute pancreatitis with uninfected necrosis, unspecified; D62 Acute posthemorrhagic anemia; D68.9 Coagulation defect, unspecified; I12.0 Hypertensive chronic kidney disease with stage 5 chronic kidney disease or end stage renal disease; N13.6 Pyonephrosis; E87.20 Acidosis, unspecified; J43.9 Emphysema, unspecified; E87.5 Hyperkalemia; D63.1 Anemia in chronic kidney disease; Z66 Do not resuscitate; I95.3 Hypotension of hemodialysis; I46.9 Cardiac arrest, cause unspecified; Z20.822 Contact with and (suspected) exposure to COVID-19; R57.8 Other shock; Z99.2 Dependence on renal dialysis; Z87.891 Personal history of nicotine dependence; R31.0 Gross hematuria; Z91.158 Patient's noncompliance with renal dialysis for other reason; Z79.51 Long term (current) use of inhaled steroids; Z79.82 Long term (current) use of aspirin; Z79.899 Other long term (current) drug therapy
CPT/HCPCS: 0241U; 36415; 70450; 71045; 71250; 73201; 73701; 74176; 74177; 80048; 80053; 80076; 80202; 80307; 81001; 82040; 82272; 82803; 82947; 83605; 83690; 83735; 84100; 84443; 84478; 84484; 85007; 85025; 85027; 85610; 85730; 86850; 86900; 86901; 86923; 87040; 87086; 87640; 87641; 90999; 92526; 92610; 93005; 93306; 94002; 94003; 94640; 94799; 99285; C1758; J0131; J0171; J0282; J0283; J0461; J0613; J1644; J1720; J1940; J2250; J2470; J2543; J2598; J2704; J3370; J3430; J3480; J7120; P9016; P9047; Q9967

== ENCOUNTER → 2024-09-15 11:00 | Outpatient (BNV) | payer MEDICARE, MEDICAID, SELFPAY | PROVIDERS: Emergency Provider Emergency Medicine; Visit Provider Radiology Diagnostic Radiology | DX: N13.30 Unspecified hydronephrosis (principal); R41.82 Altered mental status, unspecified | CPT/HCPCS: 70450; 71045; 71250; 74176 ==

== ENCOUNTER 2024-09-15 12:13 | Outpatient (BNV) | payer MEDICARE, MEDICAID, SELFPAY | END 2024-09-25 01:00 | PROVIDERS: Admitting Provider Internal Medicine Critical Care Medicine; Emergency Provider Emergency Medicine; Visit Provider General Practice | DX: K85.91 Acute pancreatitis with uninfected necrosis, unspecified (principal); K80.20 Calculus of gallbladder without cholecystitis without obstruction; K57.30 Diverticulosis of large intestine without perforation or abscess without bleeding; J84.9 Interstitial pulmonary disease, unspecified | CPT/HCPCS: 74177 ==

== ENCOUNTER 2024-09-15 12:13 | Outpatient (BNV) | payer MEDICARE, MEDICAID, SELFPAY | END 2024-09-23 13:00 | PROVIDERS: Admitting Provider Internal Medicine Critical Care Medicine; Emergency Provider Emergency Medicine; Visit Provider Internal Medicine Cardiovascular Disease | DX: R06.00 Dyspnea, unspecified (principal); R94.39 Abnormal result of other cardiovascular function study | CPT/HCPCS: 93306 ==

== ENCOUNTER 2024-09-15 12:13 | Outpatient (BNV) | payer MEDICARE, MEDICAID, SELFPAY | END 2024-09-17 20:05 | PROVIDERS: Admitting Provider Internal Medicine Critical Care Medicine; Emergency Provider Emergency Medicine; Visit Provider Radiology Diagnostic Radiology | DX: Z45.2 Encounter for adjustment and management of vascular access device (principal) | CPT/HCPCS: 71045 ==

== ENCOUNTER → 2024-09-15 12:13 | Outpatient (BNV) | payer MEDICARE, MEDICAID, SELFPAY | PROVIDERS: Admitting Provider Internal Medicine Critical Care Medicine; Emergency Provider Emergency Medicine; Visit Provider Internal Medicine Gastroenterology | DX: K92.2 Gastrointestinal hemorrhage, unspecified (principal); K85.90 Acute pancreatitis without necrosis or infection, unspecified; D53.9 Nutritional anemia, unspecified; D62 Acute posthemorrhagic anemia | CPT/HCPCS: 99222 ==

== ENCOUNTER → 2024-09-15 12:13 | Outpatient (BNV) | payer MEDICARE, MEDICAID, SELFPAY | PROVIDERS: Admitting Provider Internal Medicine Critical Care Medicine; Emergency Provider Emergency Medicine; Visit Provider Internal Medicine Critical Care Medicine | DX: J96.01 Acute respiratory failure with hypoxia (principal); J18.9 Pneumonia, unspecified organism; J44.9 Chronic obstructive pulmonary disease, unspecified; J43.9 Emphysema, unspecified; N18.6 End stage renal disease | CPT/HCPCS: 36556; 99291 ==

== ENCOUNTER → 2024-09-15 12:13 | Outpatient (BNV) | payer MEDICARE, MEDICAID, SELFPAY | PROVIDERS: Admitting Provider Internal Medicine Critical Care Medicine; Emergency Provider Emergency Medicine; Visit Provider Internal Medicine Pulmonary Disease | DX: F20.0 Paranoid schizophrenia (principal); K92.2 Gastrointestinal hemorrhage, unspecified; K85.90 Acute pancreatitis without necrosis or infection, unspecified; I48.91 Unspecified atrial fibrillation; N18.6 End stage renal disease; R57.9 Shock, unspecified; D62 Acute posthemorrhagic anemia; E87.20 Acidosis, unspecified; D68.9 Coagulation defect, unspecified; J44.9 Chronic obstructive pulmonary disease, unspecified; J96.91 Respiratory failure, unspecified with hypoxia | CPT/HCPCS: 99291 ==

== ENCOUNTER → 2024-09-15 12:13 | Outpatient (BNV) | payer MEDICARE, MEDICAID, SELFPAY | PROVIDERS: Admitting Provider Internal Medicine Critical Care Medicine; Emergency Provider Emergency Medicine; Visit Provider Urology | DX: N18.6 End stage renal disease (principal); N39.0 Urinary tract infection, site not specified; R31.0 Gross hematuria | CPT/HCPCS: 99223 ==